=== PATIENT | male | born 1950 | race Caucasian/White ===

== ENCOUNTER → 2020-01-23 09:11 | Outpatient (BNVA) | payer MEDICARE, SELFPAY | PROVIDERS: PCP Internal Medicine; Visit Provider Internal Medicine | DX: I48.91 Unspecified atrial fibrillation (principal); Z95.2 Presence of prosthetic heart valve; Z51.81 Encounter for therapeutic drug level monitoring; Z79.01 Long term (current) use of anticoagulants | CPT/HCPCS: 85610 ==

== ENCOUNTER → 2020-02-20 08:48 | Outpatient (BNVA) | payer MEDICARE, SELFPAY | PROVIDERS: PCP Internal Medicine; Referring Provider Internal Medicine; Visit Provider Internal Medicine | DX: I48.91 Unspecified atrial fibrillation (principal); Z79.01 Long term (current) use of anticoagulants; Z51.81 Encounter for therapeutic drug level monitoring | CPT/HCPCS: 85610; 99211 ==

== ENCOUNTER → 2020-03-05 08:49 | Outpatient (BNVA) | payer MEDICARE, SELFPAY | PROVIDERS: PCP Internal Medicine; Visit Provider Internal Medicine | DX: I48.91 Unspecified atrial fibrillation (principal); Z95.2 Presence of prosthetic heart valve; Z51.81 Encounter for therapeutic drug level monitoring; Z79.01 Long term (current) use of anticoagulants | CPT/HCPCS: 85610; 99211 ==

== ENCOUNTER → 2020-04-02 09:12 | Outpatient (BNVA) | payer MEDICARE, SELFPAY | PROVIDERS: PCP Internal Medicine; Visit Provider Internal Medicine | DX: I48.91 Unspecified atrial fibrillation (principal); Z95.2 Presence of prosthetic heart valve; Z51.81 Encounter for therapeutic drug level monitoring; Z79.01 Long term (current) use of anticoagulants | CPT/HCPCS: 85610; 99211 ==

== ENCOUNTER 2020-05-07 15:12 | Outpatient (REF) | payer MEDICARE, SELFPAY ==
[2020-05-07 15:58] LABS: Influenza A PCR NEGATIVE (Negative); Influenza B PCR NEGATIVE (Negative); Resp Syncy Virus RNA Qual PCR NEGATIVE (Negative)
[2020-05-07 16:09] LABS: SARS COV2 PCR INHOUSE POSITIVE (Negative)
== END 2020-05-07 15:13 | disposition home or self-care (01) ==
LOC: HO.LNP 15:12
PROVIDERS: Visit Provider Internal Medicine
DX: Z20.822 Contact with and (suspected) exposure to COVID-19 (principal)
CPT/HCPCS: 0241U

== ENCOUNTER → 2020-05-22 08:05 | Outpatient (BNVA) | payer MEDICARE, SELFPAY | PROVIDERS: PCP Internal Medicine; Visit Provider Internal Medicine | DX: I48.91 Unspecified atrial fibrillation (principal); Z95.2 Presence of prosthetic heart valve; Z51.81 Encounter for therapeutic drug level monitoring; Z79.01 Long term (current) use of anticoagulants | CPT/HCPCS: 85610; 99211 ==

== ENCOUNTER 2020-05-23 07:33 | Outpatient (REF) | payer MEDICARE, SELFPAY ==
[2020-05-23 10:03] LABS: MANUAL DIFF FLAG NO
[2020-05-23 10:11] LABS: Basophils Percent Auto 0.3 % (0-2); Eosinophils Absolute Auto 0.1 X10*3/uL (0.0-0.4); Eosinophils Percent Auto 1.7 % (0-4); Hematocrit 38.2 % (42-52); Hemoglobin 12.7 g/dl (14.0-18.0); Imm Gran Abs Auto 0.01 X10*3/uL (0.00-0.03); Imm Gran Pct Auto 0.2 % (0.0-0.4); Lymphocytes Absolute Auto 1.2 X10*3/uL (1.2-4.9); Lymphocytes Percent Auto 17.6 % (20-40); Mean Corpuscular HGB Conc 33.2 g/dl (31.0-36.0); Mean Corpuscular Hemoglobin 32.5 pg (27.0-33.0); Mean Corpuscular Volume 97.7 fL (80-98); Mean Platelet Volume 11.8 fL (9.4-12.4); Monocytes Absolute Auto 0.7 X10*3/uL (0.1-1.2); Monocytes Percent Auto 10.1 % (2-11); Neutrophils Absolute Auto 4.6 X10*3/uL (2.0-8.3); Neutrophils Percent Auto 70.1 % (45-73); Platelet Count 131 X10*3/uL (160-400); Red Blood Count 3.91 X10*6/uL (4.60-5.80); Red Cell Distribution Width 14.8 % (11.0-16.0); White Blood Count 6.5 X10*3/uL (4.8-10.8)
[2020-05-23 10:17] LABS: INTERNATIONAL NORM RATIO 4.5 (0.9-1.1)
[2020-05-23 10:27] LABS: Estimated Average Glucose 174 mg/dL; Hemoglobin A1c % 7.7 %
[2020-05-23 10:42] LABS: Alanine Aminotransferase 48 U/L (0-40); Albumin Level 4.2 g/dL (3.5-5.0); Alkaline Phosphatase 101 U/L (39-117); Anion Gap 15 (12-20); Aspartate Amino Transferase 38 U/L (5-37); Bilirubin Total 0.8 mg/dL (0.0-1.0); Blood Urea Nitrogen 22 mg/dL (9-16); Calcium 8.8 mg/dL (8.4-10.2); Carbon Dioxide 22 mmol/L (22-29); Chloride 107 mmol/L (96-108); Estimated Glomerular Filt Rate > 60; Glucose Fasting 141 mg/dL (60-99); Iron 89 mcg/dL (45-160); Percent Iron Saturation 30 % (15-50); Potassium 4.2 mmol/L (3.3-5.1); Sodium 140 mmol/L (135-145); Total Iron Binding Capacity 292 mcg/dL (228-428); Unsaturated Iron Binding 203 ug/dL
== END 2020-05-23 07:34 | disposition home or self-care (01) ==
LOC: HO.10HDL 07:33
PROVIDERS: Visit Provider Internal Medicine
DX: E11.9 Type 2 diabetes mellitus without complications (principal); D64.9 Anemia, unspecified; I10 Essential (primary) hypertension; Z95.0 Presence of cardiac pacemaker
CPT/HCPCS: 36415; 80053; 83036; 83540; 85025; 85610

== ENCOUNTER → 2020-05-26 08:38 | Outpatient (BNVA) | payer MEDICARE, SELFPAY | PROVIDERS: PCP Internal Medicine; Visit Provider Internal Medicine | DX: I48.91 Unspecified atrial fibrillation (principal); Z95.2 Presence of prosthetic heart valve; Z51.81 Encounter for therapeutic drug level monitoring; Z79.01 Long term (current) use of anticoagulants | CPT/HCPCS: 85610; 99211 ==

== ENCOUNTER → 2020-05-29 08:20 | Outpatient (BNVA) | payer MEDICARE, SELFPAY | PROVIDERS: PCP Internal Medicine; Visit Provider Internal Medicine | DX: I48.91 Unspecified atrial fibrillation (principal); Z51.81 Encounter for therapeutic drug level monitoring; Z79.01 Long term (current) use of anticoagulants | CPT/HCPCS: 85610; 99211 ==

== ENCOUNTER → 2020-06-05 08:31 | Outpatient (BNVA) | payer MEDICARE, SELFPAY | PROVIDERS: PCP Internal Medicine; Visit Provider Internal Medicine | DX: I48.91 Unspecified atrial fibrillation (principal); Z95.2 Presence of prosthetic heart valve; Z51.81 Encounter for therapeutic drug level monitoring; Z79.01 Long term (current) use of anticoagulants | CPT/HCPCS: 85610; 99211 ==

== ENCOUNTER → 2020-06-16 08:16 | Outpatient (BNVA) | payer MEDICARE, SELFPAY | PROVIDERS: PCP Internal Medicine; Visit Provider Internal Medicine | DX: I48.91 Unspecified atrial fibrillation (principal); Z51.81 Encounter for therapeutic drug level monitoring; Z79.01 Long term (current) use of anticoagulants | CPT/HCPCS: 85610; 99211 ==

== ENCOUNTER → 2020-06-27 09:02 | Outpatient (BNVA) | payer MEDICARE, SELFPAY | PROVIDERS: PCP Internal Medicine; Visit Provider Internal Medicine | DX: I48.91 Unspecified atrial fibrillation (principal); Z95.2 Presence of prosthetic heart valve; Z51.81 Encounter for therapeutic drug level monitoring; Z79.01 Long term (current) use of anticoagulants | CPT/HCPCS: 85610; 99211 ==

== ENCOUNTER → 2020-07-11 08:43 | Outpatient (BNVA) | payer MEDICARE, SELFPAY | PROVIDERS: PCP Internal Medicine; Visit Provider Internal Medicine | DX: I48.91 Unspecified atrial fibrillation (principal); Z95.2 Presence of prosthetic heart valve; Z79.01 Long term (current) use of anticoagulants; Z51.81 Encounter for therapeutic drug level monitoring | CPT/HCPCS: 85610; 99211 ==

== ENCOUNTER → 2020-07-25 08:48 | Outpatient (BNVA) | payer MEDICARE, SELFPAY | PROVIDERS: PCP Internal Medicine; Visit Provider Internal Medicine | DX: I48.91 Unspecified atrial fibrillation (principal); Z95.2 Presence of prosthetic heart valve; Z79.01 Long term (current) use of anticoagulants; Z51.81 Encounter for therapeutic drug level monitoring | CPT/HCPCS: 85610; 99211 ==

== ENCOUNTER → 2020-07-31 08:33 | Outpatient (BNVA) | payer MEDICARE, SELFPAY | PROVIDERS: PCP Internal Medicine; Visit Provider Internal Medicine | DX: I48.91 Unspecified atrial fibrillation (principal); Z95.2 Presence of prosthetic heart valve; Z79.01 Long term (current) use of anticoagulants; Z51.81 Encounter for therapeutic drug level monitoring | CPT/HCPCS: 85610; 99211 ==

== ENCOUNTER → 2020-08-15 08:49 | Outpatient (BNVA) | payer MEDICARE, SELFPAY | PROVIDERS: PCP Internal Medicine; Visit Provider Internal Medicine | DX: Z95.2 Presence of prosthetic heart valve (principal); Z51.81 Encounter for therapeutic drug level monitoring; Z79.01 Long term (current) use of anticoagulants | CPT/HCPCS: 85610; 99211 ==

== ENCOUNTER → 2020-08-28 08:30 | Outpatient (BNVA) | payer MEDICARE, SELFPAY | PROVIDERS: PCP Internal Medicine; Visit Provider Internal Medicine | DX: Z95.2 Presence of prosthetic heart valve (principal); Z51.81 Encounter for therapeutic drug level monitoring; Z79.01 Long term (current) use of anticoagulants | CPT/HCPCS: 85610; 99211 ==

== ENCOUNTER 2020-09-18 07:39 | Outpatient (REF) | payer MEDICARE, SELFPAY ==
[2020-09-18 10:03] LABS: Hemoglobin 12.8 g/dl (14.0-18.0); Imm Gran Abs Auto 0.02 X10*3/uL (0.00-0.03); Imm Gran Pct Auto 0.3 % (0.0-0.4); MANUAL DIFF FLAG SCAN; Monocytes Absolute Auto 0.6 X10*3/uL (0.1-1.2); PLT CLUMP 1; Red Cell Distribution Width 13.9 % (11.0-16.0); SCAN SMEAR FLAG 1
[2020-09-18 10:05] LABS: Basophils Percent Auto 0.5 % (0-2); Eosinophils Absolute Auto 0.3 X10*3/uL (0.0-0.4); Eosinophils Percent Auto 3.8 % (0-4); Hematocrit 37.4 % (42-52); Lymphocytes Absolute Auto 1.1 X10*3/uL (1.2-4.9); Lymphocytes Percent Auto 16.7 % (20-40); Mean Corpuscular HGB Conc 34.2 g/dl (31.0-36.0); Mean Corpuscular Hemoglobin 33.5 pg (27.0-33.0); Mean Corpuscular Volume 97.9 fL (80-98); Mean Platelet Volume 10.5 fL (9.4-12.4); Neutrophils Absolute Auto 4.6 X10*3/uL (2.0-8.3); Neutrophils Percent Auto 69.7 % (45-73); Platelet Count 142 X10*3/uL (160-400); Red Blood Count 3.82 X10*6/uL (4.60-5.80); White Blood Count 6.6 X10*3/uL (4.8-10.8)
[2020-09-18 10:14] LABS: Alanine Aminotransferase 19 U/L (0-40); Albumin Level 4.3 g/dL (3.5-5.0); Alkaline Phosphatase 109 U/L (39-117); Anion Gap 11 (12-20); Aspartate Amino Transferase 21 U/L (5-37); Bilirubin Total 0.8 mg/dL (0.0-1.0); Blood Urea Nitrogen 19 mg/dL (9-16); Calcium 9.1 mg/dL (8.4-10.2); Carbon Dioxide 26 mmol/L (22-29); Chloride 107 mmol/L (96-108); Estimated Glomerular Filt Rate > 60; Glucose Random 135 mg/dL (60-115); Potassium 4.2 mmol/L (3.3-5.1); Sodium 140 mmol/L (135-145)
== END 2020-09-18 07:40 | disposition home or self-care (01) ==
LOC: HO.LAB 07:39
PROVIDERS: PCP Internal Medicine; Visit Provider Internal Medicine
DX: I10 Essential (primary) hypertension (principal); R60.9 Edema, unspecified; I48.91 Unspecified atrial fibrillation; Z95.2 Presence of prosthetic heart valve; Z79.01 Long term (current) use of anticoagulants; Z51.81 Encounter for therapeutic drug level monitoring
CPT/HCPCS: 36415; 80053; 85025; 85610; 99211

== ENCOUNTER → 2020-10-16 08:36 | Outpatient (BNVA) | payer MEDICARE, SELFPAY | PROVIDERS: PCP Internal Medicine; Visit Provider Internal Medicine | DX: Z95.2 Presence of prosthetic heart valve (principal); Z51.81 Encounter for therapeutic drug level monitoring; Z79.01 Long term (current) use of anticoagulants | CPT/HCPCS: 85610; 99211 ==

== ENCOUNTER → 2020-11-13 08:31 | Outpatient (BNVA) | payer MEDICARE, SELFPAY | PROVIDERS: PCP Internal Medicine; Visit Provider Internal Medicine | DX: Z95.2 Presence of prosthetic heart valve (principal); Z79.01 Long term (current) use of anticoagulants; Z51.81 Encounter for therapeutic drug level monitoring | CPT/HCPCS: 85610; 99211 ==

== ENCOUNTER → 2020-12-11 08:16 | Outpatient (BNVA) | payer MEDICARE, SELFPAY | PROVIDERS: PCP Internal Medicine; Visit Provider Internal Medicine | DX: Z95.2 Presence of prosthetic heart valve (principal); Z51.81 Encounter for therapeutic drug level monitoring; Z79.01 Long term (current) use of anticoagulants | CPT/HCPCS: 85610; 99211 ==

== ENCOUNTER 2020-12-26 11:24 | Outpatient (REF) | payer MEDICARE, SELFPAY ==
[2020-12-26 13:22] LABS: MANUAL DIFF FLAG NO
[2020-12-26 13:26] LABS: Basophils Percent Auto 0.3 % (0-2); Eosinophils Absolute Auto 0.2 X10*3/uL (0.0-0.4); Eosinophils Percent Auto 2.8 % (0-4); Hematocrit 38.8 % (42-52); Hemoglobin 13.2 g/dl (14.0-18.0); Imm Gran Abs Auto 0.03 X10*3/uL (0.00-0.03); Imm Gran Pct Auto 0.3 % (0.0-0.4); Lymphocytes Absolute Auto 1.3 X10*3/uL (1.2-4.9); Lymphocytes Percent Auto 14.7 % (20-40); Mean Corpuscular Hemoglobin 33.3 pg (27.0-33.0); Mean Platelet Volume 10.7 fL (9.4-12.4); Monocytes Absolute Auto 0.7 X10*3/uL (0.1-1.2); Monocytes Percent Auto 8.5 % (2-11); Neutrophils Absolute Auto 6.3 X10*3/uL (2.0-8.3); Neutrophils Percent Auto 73.4 % (45-73); Platelet Count 155 X10*3/uL (160-400); Red Blood Count 3.96 X10*6/uL (4.60-5.80); Red Cell Distribution Width 14.3 % (11.0-16.0); White Blood Count 8.6 X10*3/uL (4.8-10.8)
[2020-12-26 13:46] LABS: Estimated Average Glucose 169 mg/dL; Hemoglobin A1c % 7.5 %
[2020-12-26 13:54] LABS: Anion Gap 12 (12-20); Blood Urea Nitrogen 10 mg/dL (9-16); Calcium 9.3 mg/dL (8.4-10.2); Carbon Dioxide 26 mmol/L (22-29); Chloride 106 mmol/L (96-108); Estimated Glomerular Filt Rate > 60; Glucose Random 139 mg/dL (60-115); Potassium 4.1 mmol/L (3.3-5.1); Sodium 140 mmol/L (135-145)
[2020-12-26 13:55] LABS: Creatinine Urine 58.11 mg/dL; Microalbum/Creatinine Ratio Ur 106.6 ug/mg cr
== END 2020-12-26 11:25 | disposition home or self-care (01) ==
LOC: HO.10HDL 11:24
PROVIDERS: Visit Provider Internal Medicine
DX: E11.9 Type 2 diabetes mellitus without complications (principal); I10 Essential (primary) hypertension; J45.909 Unspecified asthma, uncomplicated; D64.9 Anemia, unspecified
CPT/HCPCS: 36415; 80048; 82043; 83036; 85025

== ENCOUNTER → 2021-01-08 09:15 | Outpatient (BNVA) | payer MEDICARE, SELFPAY | PROVIDERS: PCP Internal Medicine; Visit Provider Internal Medicine | DX: Z95.2 Presence of prosthetic heart valve (principal); Z51.81 Encounter for therapeutic drug level monitoring; Z79.01 Long term (current) use of anticoagulants | CPT/HCPCS: 85610; 99211 ==

== ENCOUNTER → 2021-02-05 09:01 | Outpatient (BNVA) | payer MEDICARE, SELFPAY | PROVIDERS: PCP Internal Medicine; Visit Provider Internal Medicine | DX: Z95.2 Presence of prosthetic heart valve (principal); Z51.81 Encounter for therapeutic drug level monitoring; Z79.01 Long term (current) use of anticoagulants | CPT/HCPCS: 85610; 99211 ==

== ENCOUNTER → 2021-03-05 09:25 | Outpatient (BNVA) | payer MEDICARE, SELFPAY | PROVIDERS: PCP Internal Medicine; Visit Provider Internal Medicine | DX: Z95.2 Presence of prosthetic heart valve (principal); Z51.81 Encounter for therapeutic drug level monitoring; Z79.01 Long term (current) use of anticoagulants | CPT/HCPCS: 85610; 99211 ==

== ENCOUNTER → 2021-03-19 09:31 | Outpatient (BNVA) | payer MEDICARE, SELFPAY | PROVIDERS: PCP Internal Medicine; Visit Provider Internal Medicine | DX: Z95.2 Presence of prosthetic heart valve (principal); Z51.81 Encounter for therapeutic drug level monitoring; Z79.01 Long term (current) use of anticoagulants | CPT/HCPCS: 85610; 99211 ==

== ENCOUNTER 2021-04-03 10:04 | Outpatient (REF) | payer MEDICARE, SELFPAY ==
[2021-04-03 10:38] LABS: MANUAL DIFF FLAG NO
[2021-04-03 10:41] LABS: Basophils Percent Auto 0.2 % (0-2); Eosinophils Absolute Auto 0.3 X10*3/uL (0.0-0.4); Eosinophils Percent Auto 4.1 % (0-4); Hematocrit 39.3 % (42.0-52.0); Hemoglobin 13.1 g/dl (14.0-18.0); Imm Gran Abs Auto 0.01 X10*3/uL (0.00-0.03); Imm Gran Pct Auto 0.1 % (0.0-0.4); Lymphocytes Absolute Auto 1.2 X10*3/uL (1.2-4.9); Mean Corpuscular HGB Conc 33.3 g/dl (31.0-36.0); Mean Corpuscular Hemoglobin 33.1 pg (27.0-33.0); Mean Corpuscular Volume 99.2 fL (80.0-98.0); Mean Platelet Volume 10.5 fL (9.4-12.4); Monocytes Absolute Auto 0.6 X10*3/uL (0.1-1.2); Monocytes Percent Auto 7.7 % (2-11); Neutrophils Percent Auto 72.9 % (45-73); Platelet Count 146 X10*3/uL (160-400); Red Blood Count 3.96 X10*6/uL (4.60-5.80); Red Cell Distribution Width 14.4 % (11.0-16.0); White Blood Count 8.2 X10*3/uL (4.8-10.8)
[2021-04-03 10:49] LABS: Estimated Average Glucose 166 mg/dL; Hemoglobin A1c % 7.4 %
[2021-04-03 10:50] LABS: INTERNATIONAL NORM RATIO 2.7 (0.9-1.1); Prothrombin Time 30.8 SEC (9.9-13.0)
[2021-04-03 11:08] LABS: Alanine Aminotransferase 22 U/L (0-40); Albumin Level 4.1 g/dL (3.5-5.0); Alkaline Phosphatase 104 U/L (39-117); Anion Gap 13 (12-20); Aspartate Amino Transferase 22 U/L (5-37); Bilirubin Total 1.1 mg/dL (0.0-1.0); Blood Urea Nitrogen 17 mg/dL (9-16); Calcium 8.9 mg/dL (8.4-10.2); Carbon Dioxide 24 mmol/L (22-29); Chloride 107 mmol/L (96-108); Cholesterol 111 mg/dL; Estimated Glomerular Filt Rate > 60; Glucose Fasting 113 mg/dL (60-99); HDL Cholesterol 37 mg/dL; LDL Cholesterol Calculated 63 mg/dl; Potassium 4.5 mmol/L (3.3-5.1); Sodium 139 mmol/L (135-145); Total Protein 6.9 g/dL (6.5-8.0); Triglycerides 57 mg/dL
[2021-04-03 11:30] LABS: Prostate Specific Antigen Scr 0.31 ng/mL (<0.05-4.0)
[2021-04-03 14:42] LABS: Creatinine Urine 65.13 mg/dL; Microalbum/Creatinine Ratio Ur 79.8 ug/mg cr
== END 2021-04-03 10:05 | disposition home or self-care (01) ==
LOC: HO.10HDL 10:04
PROVIDERS: Visit Provider Internal Medicine
DX: Z12.5 Encounter for screening for malignant neoplasm of prostate (principal); N40.1 Benign prostatic hyperplasia with lower urinary tract symptoms; R60.0 Localized edema; E78.00 Pure hypercholesterolemia, unspecified; E11.9 Type 2 diabetes mellitus without complications; I10 Essential (primary) hypertension
CPT/HCPCS: 36415; 80053; 80061; 82043; 83036; 84153; 85025; 85610

== ENCOUNTER → 2021-05-07 09:14 | Outpatient (BNVA) | payer MEDICARE, SELFPAY | PROVIDERS: PCP Internal Medicine; Visit Provider Internal Medicine | DX: Z95.2 Presence of prosthetic heart valve (principal); Z51.81 Encounter for therapeutic drug level monitoring; Z79.01 Long term (current) use of anticoagulants | CPT/HCPCS: 85610; 99211 ==

== ENCOUNTER → 2021-06-04 08:28 | Outpatient (BNVA) | payer MEDICARE, SELFPAY | PROVIDERS: PCP Internal Medicine; Visit Provider Internal Medicine | DX: Z95.2 Presence of prosthetic heart valve (principal); Z51.81 Encounter for therapeutic drug level monitoring; Z79.01 Long term (current) use of anticoagulants | CPT/HCPCS: 85610; 99211 ==

== ENCOUNTER → 2021-07-02 09:02 | Outpatient (BNVA) | payer MEDICARE, SELFPAY | PROVIDERS: PCP Internal Medicine; Visit Provider Internal Medicine | DX: Z95.2 Presence of prosthetic heart valve (principal); Z79.01 Long term (current) use of anticoagulants; Z51.81 Encounter for therapeutic drug level monitoring | CPT/HCPCS: 85610; 99211 ==

== ENCOUNTER 2021-07-14 09:12 | Outpatient (REF) | payer MEDICARE, SELFPAY ==
[2021-07-14 11:35] LABS: MANUAL DIFF FLAG NO
[2021-07-14 11:45] LABS: Basophils Percent Auto 0.3 % (0-2); Eosinophils Absolute Auto 0.5 X10*3/uL (0.0-0.4); Eosinophils Percent Auto 6.9 % (0-4); Hematocrit 39.7 % (42.0-52.0); Hemoglobin 13.3 g/dl (14.0-18.0); INTERNATIONAL NORM RATIO 2.5 (0.9-1.1); Imm Gran Abs Auto 0.02 X10*3/uL (0.00-0.03); Imm Gran Pct Auto 0.3 % (0.0-0.4); Lymphocytes Percent Auto 15.5 % (20-40); Mean Corpuscular HGB Conc 33.5 g/dl (31.0-36.0); Mean Corpuscular Volume 98.5 fL (80.0-98.0); Mean Platelet Volume 10.9 fL (9.4-12.4); Monocytes Absolute Auto 0.6 X10*3/uL (0.1-1.2); Monocytes Percent Auto 8.4 % (2-11); Neutrophils Absolute Auto 4.5 x10*3/uL (2.0-8.3); Neutrophils Percent Auto 68.6 % (45-73); Platelet Count 148 X10*3/uL (160-400); Prothrombin Time 28.7 SEC (9.9-13.0); Red Blood Count 4.03 X10*6/uL (4.60-5.80); Red Cell Distribution Width 13.6 % (11.0-16.0); White Blood Count 6.5 X10*3/uL (4.8-10.8)
[2021-07-14 12:05] LABS: Alanine Aminotransferase 17 U/L (0-40); Albumin Level 4.1 g/dL (3.5-5.0); Alkaline Phosphatase 115 U/L (39-117); Anion Gap 12 (12-20); Aspartate Amino Transferase 18 U/L (5-37); Bilirubin Total 0.7 mg/dL (0.0-1.0); Blood Urea Nitrogen 16 mg/dL (9-16); Calcium 8.9 mg/dL (8.4-10.2); Carbon Dioxide 25 mmol/L (22-29); Chloride 107 mmol/L (96-108); Estimated Glomerular Filt Rate > 60; Glucose Random 136 mg/dL (60-115); Potassium 4.3 mmol/L (3.3-5.1); Sodium 140 mmol/L (135-145); Total Protein 6.9 g/dL (6.5-8.0)
[2021-07-14 12:14] LABS: Estimated Average Glucose 186 mg/dL; Hemoglobin A1c % 8.1 %
== END 2021-07-14 09:13 | disposition home or self-care (01) ==
LOC: HO.WFDLDS 09:12
PROVIDERS: Visit Provider Internal Medicine
DX: E11.9 Type 2 diabetes mellitus without complications (principal); J45.909 Unspecified asthma, uncomplicated; R94.31 Abnormal electrocardiogram [ECG] [EKG]; Z79.01 Long term (current) use of anticoagulants
CPT/HCPCS: 36415; 80053; 83036; 85025; 85610

== ENCOUNTER → 2021-07-30 09:47 | Outpatient (BNVA) | payer MEDICARE, SELFPAY | PROVIDERS: PCP Internal Medicine; Visit Provider Internal Medicine | DX: Z95.2 Presence of prosthetic heart valve (principal); Z79.01 Long term (current) use of anticoagulants; Z51.81 Encounter for therapeutic drug level monitoring | CPT/HCPCS: Q3014 ==

== ENCOUNTER → 2021-08-11 08:53 | Outpatient (BNVA) | payer MEDICARE, SELFPAY | PROVIDERS: PCP Internal Medicine; Visit Provider Internal Medicine | DX: Z95.2 Presence of prosthetic heart valve (principal); Z79.01 Long term (current) use of anticoagulants; Z51.81 Encounter for therapeutic drug level monitoring | CPT/HCPCS: 85610; 99211 ==

== ENCOUNTER 2021-09-08 08:18 | Outpatient (REF) | payer MEDICARE, SELFPAY ==
[2021-09-08 08:42] LABS: MANUAL DIFF FLAG NO
[2021-09-08 09:49] LABS: Basophils Percent Auto 0.3 % (0-2); Eosinophils Absolute Auto 0.3 X10*3/uL (0.0-0.4); Eosinophils Percent Auto 3.7 % (0-4); Hematocrit 39.1 % (42.0-52.0); Hemoglobin 12.9 g/dl (14.0-18.0); Imm Gran Abs Auto 0.03 X10*3/uL (0.00-0.03); Imm Gran Pct Auto 0.4 % (0.0-0.4); Lymphocytes Percent Auto 12.7 % (20-40); Mean Corpuscular Hemoglobin 32.9 pg (27.0-33.0); Mean Corpuscular Volume 99.7 fL (80.0-98.0); Mean Platelet Volume 10.7 fL (9.4-12.4); Monocytes Absolute Auto 0.6 X10*3/uL (0.1-1.2); Monocytes Percent Auto 7.6 % (2-11); Neutrophils Percent Auto 75.3 % (45-73); Platelet Count 169 X10*3/uL (160-400); Red Blood Count 3.92 X10*6/uL (4.60-5.80); Red Cell Distribution Width 13.7 % (11.0-16.0); White Blood Count 7.9 X10*3/uL (4.8-10.8)
[2021-09-08 10:24] LABS: B Type Natriuretic Peptide 77 pg/mL (<100)
[2021-09-08 10:28] LABS: Alanine Aminotransferase 21 U/L (0-40); Albumin Level 3.9 g/dL (3.5-5.0); Alkaline Phosphatase 98 U/L (39-117); Anion Gap 14 (12-20); Aspartate Amino Transferase 19 U/L (5-37); Bilirubin Total 0.8 mg/dL (0.0-1.0); Blood Urea Nitrogen 21 mg/dL (9-16); Calcium 9.3 mg/dL (8.4-10.2); Carbon Dioxide 25 mmol/L (22-29); Chloride 105 mmol/L (96-108); Estimated Glomerular Filt Rate > 60; Glucose Random 185 mg/dL (60-115); Potassium 4.5 mmol/L (3.3-5.1); Sodium 139 mmol/L (135-145); Total Protein 6.7 g/dL (6.5-8.0)
[2021-09-08 10:33] LABS: Estimated Average Glucose 197 mg/dL; Hemoglobin A1c % 8.5 %
[2021-09-08 10:40] LABS: Thyroid Stimulating Hormone 1.11 uIU/mL (0.32-4.0)
== END 2021-09-08 08:19 | disposition home or self-care (01) ==
LOC: HO.LAB 08:18
PROVIDERS: PCP Internal Medicine; Visit Provider Internal Medicine
DX: Z95.2 Presence of prosthetic heart valve (principal); Z51.81 Encounter for therapeutic drug level monitoring; Z79.01 Long term (current) use of anticoagulants; R60.0 Localized edema; E11.9 Type 2 diabetes mellitus without complications; J45.909 Unspecified asthma, uncomplicated
CPT/HCPCS: 36415; 80053; 83036; 83880; 84443; 85025; 85610; 99211

== ENCOUNTER 2021-09-22 13:44 | Outpatient (REF) | payer MEDICARE, SELFPAY ==
--- NOTE | ~2021-09-22 | XR_ITS ---
EXAMINATION: XR CHEST CLINICAL INFORMATION: Substance dependence. COMPARISON: Chest 03/27/2019. TECHNIQUE: 2 views of the chest were obtained. FINDINGS: The lungs are well expanded and clear. The heart size and pulmonary vascularity is normal. No gross bony abnormality seen. Pacer electrodes in right atrium and right ventricle are unremarkable. XR/XR chest 2V IMPRESSION: Unremarkable chest exam. No change from 03/27/2019.
[2021-09-22 15:39] LABS: Baso%MD 0.3 %; Eos%MD 7.4 %; Hematocrit 37.7 % (42.0-52.0); Hemoglobin 12.7 g/dl (14.0-18.0); IG%MD 0.3 %; Lymph%MD 22.7 %; Mean Corpuscular HGB Conc 33.7 g/dl (31.0-36.0); Mean Corpuscular Hemoglobin 33.1 pg (27.0-33.0); Mean Corpuscular Volume 98.2 fL (80.0-98.0); Mean Platelet Volume 10.4 fL (9.4-12.4); Mono%MD 10.6 %; Neut%MD 58.7 %; Platelet Count 150 X10*3/uL (160-400); Red Blood Count 3.84 X10*6/uL (4.60-5.80); Red Cell Distribution Width 13.5 % (11.0-16.0); White Blood Count 6.2 X10*3/uL (4.8-10.8)
[2021-09-22 16:15] LABS: Band Neutrophils Percent 1 % (3-5); Basophils Abs Manual 0.1 X10*3/uL (0.0-0.2); Basophils Percent Manual 1 % (0-2); Eosinophils Absolute Manual 0.5 X10*3/uL (0.0-0.4); Eosinophils Percent Manual 8 % (0-4); Lymphocytes Absolute Manual 0.9 X10*3/uL (1.2-4.9); Lymphocytes Percent Manual 15 % (20-40); Monocytes Absolute Manual 0.7 X10*3/uL (0.1-1.2); Monocytes Percent Manual 11 % (2-11); Neutrophils Percent Manual 64 % (45-73)
[2021-09-22 16:16] LABS: Acanthocytes 1+ (0-2) /OIF; Ovalocytes 1+ (5-14) /OIF; Platelet Estimate DECREASED (NORMAL); Platelet Morphology Comment NORMAL; RBC Morphology NORMAL
[2021-09-22 16:17] LABS: Toxic Vacuolation PRESENT
[2021-09-24 12:51] LABS: Immunoglobulin E 231 kU/L (<OR=114)
== END 2021-09-22 13:45 | disposition home or self-care (01) ==
LOC: HO.XRAY 13:44
PROVIDERS: PCP Internal Medicine; Visit Provider Internal Medicine
DX: J82.83 Eosinophilic asthma (principal); J44.9 Chronic obstructive pulmonary disease, unspecified; F19.20 Other psychoactive substance dependence, uncomplicated
CPT/HCPCS: 36415; 71046; 82785; 85007; 85027; 99202

== ENCOUNTER → 2021-10-13 08:07 | Outpatient (BNVA) | payer MEDICARE, SELFPAY | PROVIDERS: PCP Internal Medicine; Visit Provider Internal Medicine | DX: Z95.2 Presence of prosthetic heart valve (principal); Z79.01 Long term (current) use of anticoagulants; Z51.81 Encounter for therapeutic drug level monitoring | CPT/HCPCS: 85610; 99211 ==

== ENCOUNTER 2021-10-26 09:36 | Outpatient (REF) | payer MEDICARE, SELFPAY ==
--- NOTE | 2021-10-26 12:57 | PFT_ITS ---
Forced vital capacity 64%, FEV1 of 69%, FEV1/FVC ratio is 78. KXL93-12 is 80% and MVV 65%. Post bronchodilator therapy, there was a slight improvement in PSG03-41. Total lung capacity 75%. Residual volume 91%. Diffusion capacity is 66%. CONCLUSION: Mild restrictive pulmonary disorder. No evidence of obstructive airway disorder. However, there is significant improvement in PEL54-18, after bronchodilator therapy indicates that there may be a mild bronchospastic component, which response to bronchodilator therapy. Clinical correlation is recommended. Allyson Maradiaga MD MSB/MODL / [phone]
== END 2021-10-26 09:37 | disposition home or self-care (01) ==
LOC: HO.RESP 09:36
PROVIDERS: PCP Internal Medicine; Visit Provider Internal Medicine
DX: J44.9 Chronic obstructive pulmonary disease, unspecified (principal); J82.83 Eosinophilic asthma; R06.00 Dyspnea, unspecified
CPT/HCPCS: 94060; 94727; 94729

== ENCOUNTER → 2021-10-27 09:19 | Outpatient (BNVA) | payer MEDICARE, SELFPAY | PROVIDERS: PCP Internal Medicine; Visit Provider Internal Medicine | DX: Z95.2 Presence of prosthetic heart valve (principal); Z79.01 Long term (current) use of anticoagulants; Z51.81 Encounter for therapeutic drug level monitoring | CPT/HCPCS: 85610; 99211 ==

== ENCOUNTER → 2021-10-29 14:37 | Outpatient (BNVA) | payer MEDICARE, SELFPAY | PROVIDERS: PCP Internal Medicine; Visit Provider Internal Medicine | DX: J44.9 Chronic obstructive pulmonary disease, unspecified (principal); J82.83 Eosinophilic asthma; F19.20 Other psychoactive substance dependence, uncomplicated | CPT/HCPCS: 99212 ==

== ENCOUNTER → 2021-11-05 08:08 | Outpatient (REF) | payer MEDICARE, SELFPAY ==
--- NOTE | 2021-11-05 08:13 | CA_ITS ---
Transthoracic Echocardiogram Patient (Last, First, Middle): Manuel Vasquez F Gender: Male Date of : 1950 Age: 71 Procedure Date: 11/05/2021 Procedure Type: Transthoracic Echocardiogram Location: OP Height: 180.34 cm Weight: 127.46 kg BSA: 2.44 m2 Heart Rate: bpm BP: 122 / 65 mmHg Industrial Automation Engineer: FAVIAN Referring MD: Jaden Nicole MD Symptoms: I44.30 ATRIOVENTRICULAR BLOCK, J45.909 ASTHMA R60.9 EDEMA Study Quality: Adequate Conclusions: - 1. Normal LV systolic function with grade 3 diastolic dysfunction 2. Biatrial enlargement, right greater than left 3. Moderate RV enlargement with moderate RV systolic dysfunction 4. Normally functioning mechanical aortic valve with mean gradient of 11 mmHg 5. Shdr-di-sugwycrc elevation of right ventricular systolic pressure mildly elevated right atrial pressures 6. Moderately enlarged ascending aorta at 4.6 cm 7. No pericardial effusion Findings Procedure Information Contrast agent, definity, is being given per protocol without apparent complications. Left Ventricle Normal left ventricular size, thickness, and systolic function. The visually estimated ejection fraction is between 55-60%. There is paradoxical septal motion consistent with a right ventricular pacemaker. Spectral Doppler is indicative of a restrictive filling pattern. E/E prime ratio is >15, consistent with elevated filling pressures. Evidence suggests grade III (severe) diastolic dysfunction. Right Ventricle Moderately increased right ventricular cavity size. There is moderately decreased right ventricular systolic function. There is a pacemaker wire seen in the right ventricle. Atria The left atrium is mildly dilated. Interatrial shunt cannot be excluded. The right atrium is moderately dilated. A pacemaker wire is identified in the right atrium. Aortic Valve A mechanical prosthetic aortic valve is present. The prosthetic aortic valve appears to be functioning normally. The mean gradient is 11 mmHg. There is no aortic valve regurgitation. the valve is well seated without abnormal rocking motion Mitral Valve The mitral valve was not well visualized. There is trace mitral valve regurgitation. There is no mitral valve stenosis. Pulmonic Valve The pulmonic valve was not well visualized. Tricuspid Valve Normal tricuspid valve structure. There is mild tricuspid valve regurgitation. Mildly elevated right atrial pressure. Mild to moderate pulmonary hypertension is present. Great Vessels The pulmonary artery was not well visualized. There is moderate dilatation of the ascending aorta measuring 4.60 cm. Venous The inferior vena cava is mildly dilated and collapses less than 50% with inspiration. Pericardium/Pleural There is no evidence of pericardial effusion. Prior Study Comparison no prior study in the last 5 years for comparison Measurements 2D Linear Measurements IVSd: 1.10 0.6-0.9/0.6-1.0 cm LVIDd: 5.47 3.9-5.3/4.2-5.9 cm LVIDd Index: 2.24 2.4-3.2/2.2-3.1 cm/m2 LVIDs: 3.98 2.0-3.6 cm LVPWd: 1.06 0.7-1.1 cm LA Diam: 4.20 2.7-3.8/3.0-4.0 cm LAIDs Index: 1.72 1.5-2.3 cm/m2 LV Mass: 291.75 67-162/88-224 g LV Mass Index: 119.57 43-95/49-115 g/m2 LVOT Diam: 2.00 3.0+(-)1.3 cm 2D Systolic Function EF 4C: 60.80 >55% EF 2C: 58.70 >55% EF BiP: 58.30 >55% Mitral Valve MV Pk E: 1.34 MV PK A: 0.37 MV Decel Time: 160.00 E/A: 3.60 E'Lateral: 6.96 E'Medial: 5.87 E/E' Med: 22.80 E/E' Lat: 19.30 PHT: 47.00 MVA PHT: 4.68 Decel [place]: 8.36 Aortic Valve AoV Pk Manuel: 2.26 AoV Mn Manuel: 1.52 AoV VTI: 0.52 AoV Pk Grad: 20.00 Aov Mn Grad: 11.00 JENI Cont.VTI: 1.47 LVOT LVOT Pk Manuel: 1.07 LVOT Mn Manuel: 0.78 LVOT VTI: 0.24 LVOT Pk Grad: 5.00 LVOT Mn Grad: 3.00 LVOT Diam: 2.00 LVOT Area: 3.14 Diastolic Function MV Pk E: 1.34 MV Pk A: 0.37 E/A: 3.60 E'Medial: 5.87 E/E' Med: 22.80 E' Laterial: 6.96 E/E' Lat: 19.30 Right Ventricle TAPSE (mm): 11.80 TVS' Manuel: 6.74 Tricuspid Valve TR Pk Manuel: 3.12 TR Pk Grad: 39.00 RA Press: 8.00 RVSP: 47.00 Great Vessels Aorta Ao Asc: 4.60 2.1-3.4 cm Updated in Other Vendor System with Status of Final Charles Payton MD electronically signed on 11/05/2021 12:15:13 PM with status of Final
== END ==
LOC: HO.CARD 08:08
PROVIDERS: PCP Internal Medicine; Visit Provider Internal Medicine
DX: I44.30 Unspecified atrioventricular block (principal); R60.9 Edema, unspecified; J45.909 Unspecified asthma, uncomplicated
CPT/HCPCS: 93306; Q9957

== ENCOUNTER → 2021-11-17 08:50 | Outpatient (BNVA) | payer MEDICARE, SELFPAY | PROVIDERS: PCP Internal Medicine; Visit Provider Internal Medicine | DX: Z95.2 Presence of prosthetic heart valve (principal); Z79.01 Long term (current) use of anticoagulants; Z51.81 Encounter for therapeutic drug level monitoring | CPT/HCPCS: 85610; 99211 ==

== ENCOUNTER → 2021-11-30 09:06 | Outpatient (BNVA) | payer MEDICARE, SELFPAY | PROVIDERS: PCP Internal Medicine; Visit Provider Internal Medicine | DX: Z95.2 Presence of prosthetic heart valve (principal); Z79.01 Long term (current) use of anticoagulants; Z51.81 Encounter for therapeutic drug level monitoring | CPT/HCPCS: 85610; 99211 ==

== ENCOUNTER → 2021-12-28 08:44 | Outpatient (BNVA) | payer MEDICARE, SELFPAY | PROVIDERS: PCP Internal Medicine; Visit Provider Internal Medicine | DX: Z95.2 Presence of prosthetic heart valve (principal); Z79.01 Long term (current) use of anticoagulants; Z51.81 Encounter for therapeutic drug level monitoring | CPT/HCPCS: 85610; 99211 ==

== ENCOUNTER → 2022-01-27 08:34 | Outpatient (BNVA) | payer MEDICARE, SELFPAY | PROVIDERS: PCP Internal Medicine; Visit Provider Internal Medicine | DX: Z95.2 Presence of prosthetic heart valve (principal); Z51.81 Encounter for therapeutic drug level monitoring; Z79.01 Long term (current) use of anticoagulants | CPT/HCPCS: 85610; 99211 ==

== ENCOUNTER 2022-01-28 07:22 | Outpatient (REF) | payer MEDICARE, SELFPAY ==
[2022-01-28 10:55] LABS: MANUAL DIFF FLAG NO
[2022-01-28 11:14] LABS: Basophils Percent Auto 0.5 % (0-2); Eosinophils Absolute Auto 0.5 X10*3/uL (0.0-0.4); Eosinophils Percent Auto 8.3 % (0-4); Hematocrit 38.7 % (42.0-52.0); Imm Gran Abs Auto 0.02 X10*3/uL (0.00-0.03); Imm Gran Pct Auto 0.3 % (0.0-0.4); Lymphocytes Absolute Auto 1.2 X10*3/uL (1.2-4.9); Lymphocytes Percent Auto 19.5 % (20-40); Mean Corpuscular HGB Conc 33.6 g/dl (31.0-36.0); Mean Corpuscular Hemoglobin 32.8 pg (27.0-33.0); Mean Corpuscular Volume 97.7 fL (80.0-98.0); Mean Platelet Volume 11.1 fL (9.4-12.4); Monocytes Absolute Auto 0.6 X10*3/uL (0.1-1.2); Monocytes Percent Auto 9.6 % (2-11); Neutrophils Absolute Auto 3.9 x10*3/uL (2.0-8.3); Neutrophils Percent Auto 61.8 % (45-73); Platelet Count 158 X10*3/uL (160-400); Red Blood Count 3.96 X10*6/uL (4.60-5.80); Red Cell Distribution Width 14.4 % (11.0-16.0); White Blood Count 6.4 X10*3/uL (4.8-10.8)
[2022-01-28 11:18] LABS: Estimated Average Glucose 146 mg/dL; Hemoglobin A1c % 6.7 %
[2022-01-28 11:56] LABS: Alanine Aminotransferase 15 U/L (0-40); Albumin Level 4.2 g/dL (3.5-5.0); Alkaline Phosphatase 128 U/L (39-117); Anion Gap 15 (12-20); Aspartate Amino Transferase 21 U/L (5-37); Bilirubin Total 0.8 mg/dL (0.0-1.0); Blood Urea Nitrogen 19 mg/dL (9-16); Calcium 8.9 mg/dL (8.4-10.2); Carbon Dioxide 25 mmol/L (22-29); Chloride 105 mmol/L (96-108); Cholesterol 110 mg/dL; Estimated Glomerular Filt Rate > 60; Glucose Fasting 95 mg/dL (60-99); HDL Cholesterol 34 mg/dL; LDL Cholesterol Calculated 65 mg/dl; Potassium 4.2 mmol/L (3.3-5.1); Sodium 141 mmol/L (135-145); Triglycerides 57 mg/dL
[2022-01-28 17:48] LABS: Creatinine Urine 82.82 mg/dL; Microalbum/Creatinine Ratio Ur 31.3 ug/mg cr
== END 2022-01-28 07:23 | disposition home or self-care (01) ==
LOC: HO.WFDLDS 07:22
PROVIDERS: Visit Provider Internal Medicine
DX: I10 Essential (primary) hypertension (principal); E11.9 Type 2 diabetes mellitus without complications; D64.9 Anemia, unspecified; J45.909 Unspecified asthma, uncomplicated; Z95.2 Presence of prosthetic heart valve
CPT/HCPCS: 36415; 80053; 80061; 82043; 83036; 85025

== ENCOUNTER → 2022-02-23 13:39 | Outpatient (BNVA) | payer MEDICARE, SELFPAY | PROVIDERS: PCP Internal Medicine; Visit Provider Internal Medicine | DX: J82.83 Eosinophilic asthma (principal); J44.9 Chronic obstructive pulmonary disease, unspecified; F19.20 Other psychoactive substance dependence, uncomplicated | CPT/HCPCS: 99212 ==

== ENCOUNTER → 2022-02-24 09:22 | Outpatient (BNVA) | payer MEDICARE, SELFPAY | PROVIDERS: PCP Internal Medicine; Visit Provider Internal Medicine | DX: Z95.2 Presence of prosthetic heart valve (principal); Z79.01 Long term (current) use of anticoagulants; Z51.81 Encounter for therapeutic drug level monitoring | CPT/HCPCS: 85610; 99211 ==

== ENCOUNTER → 2022-03-24 08:57 | Outpatient (BNVA) | payer MEDICARE, SELFPAY | PROVIDERS: PCP Internal Medicine; Visit Provider Internal Medicine | DX: Z95.2 Presence of prosthetic heart valve (principal); Z79.01 Long term (current) use of anticoagulants; Z51.81 Encounter for therapeutic drug level monitoring | CPT/HCPCS: 85610; 99211 ==

== ENCOUNTER → 2022-04-21 09:05 | Outpatient (BNVA) | payer MEDICARE, SELFPAY | PROVIDERS: PCP Internal Medicine; Visit Provider Internal Medicine | DX: Z95.2 Presence of prosthetic heart valve (principal); Z79.01 Long term (current) use of anticoagulants; Z51.81 Encounter for therapeutic drug level monitoring | CPT/HCPCS: 85610; 99211 ==

== ENCOUNTER → 2022-05-19 09:09 | Outpatient (BNVA) | payer MEDICARE, SELFPAY | PROVIDERS: PCP Internal Medicine; Visit Provider Internal Medicine | DX: Z95.2 Presence of prosthetic heart valve (principal); Z79.01 Long term (current) use of anticoagulants; Z51.81 Encounter for therapeutic drug level monitoring | CPT/HCPCS: 85610; 99211 ==

== ENCOUNTER → 2022-05-25 13:42 | Outpatient (BNVA) | payer MEDICARE, SELFPAY | PROVIDERS: PCP Internal Medicine; Visit Provider Internal Medicine | DX: J44.9 Chronic obstructive pulmonary disease, unspecified (principal); J82.83 Eosinophilic asthma; E66.01 Morbid (severe) obesity due to excess calories; Z68.39 Body mass index [BMI] 39.0-39.9, adult; Z79.52 Long term (current) use of systemic steroids; Z87.891 Personal history of nicotine dependence | CPT/HCPCS: 99212 ==

== ENCOUNTER → 2022-06-09 09:04 | Outpatient (BNVA) | payer MEDICARE, SELFPAY | PROVIDERS: PCP Internal Medicine; Visit Provider Internal Medicine | DX: Z95.2 Presence of prosthetic heart valve (principal); Z79.01 Long term (current) use of anticoagulants; Z51.81 Encounter for therapeutic drug level monitoring | CPT/HCPCS: 85610; 99211 ==

== ENCOUNTER → 2022-07-07 08:47 | Outpatient (BNVA) | payer MEDICARE, SELFPAY | PROVIDERS: PCP Internal Medicine; Visit Provider Internal Medicine | DX: Z95.2 Presence of prosthetic heart valve (principal); Z79.01 Long term (current) use of anticoagulants; Z51.81 Encounter for therapeutic drug level monitoring | CPT/HCPCS: 85610; 99211 ==

== ENCOUNTER → 2022-07-21 09:00 | Outpatient (BNVA) | payer MEDICARE, SELFPAY | PROVIDERS: PCP Internal Medicine; Visit Provider Internal Medicine | DX: Z95.2 Presence of prosthetic heart valve (principal); Z79.01 Long term (current) use of anticoagulants; Z51.81 Encounter for therapeutic drug level monitoring | CPT/HCPCS: 85610; 99211 ==

== ENCOUNTER 2022-08-12 08:20 | Outpatient (REF) | payer MEDICARE, SELFPAY ==
[2022-08-12 11:51] LABS: Basophils Percent Auto 0.6 % (0-2); Eosinophils Absolute Auto 0.1 X10*3/uL (0.0-0.4); Hematocrit 39.8 % (42.0-52.0); Imm Gran Abs Auto 0.03 X10*3/uL (0.00-0.03); Imm Gran Pct Auto 0.6 % (0.0-0.4); Lymphocytes Absolute Auto 0.8 X10*3/uL (1.2-4.9); Lymphocytes Percent Auto 15.7 % (20-40); MANUAL DIFF FLAG SCAN; Mean Corpuscular HGB Conc 32.7 g/dl (31.0-36.0); Mean Corpuscular Hemoglobin 32.3 pg (27.0-33.0); Mean Platelet Volume 10.7 fL (9.4-12.4); Monocytes Absolute Auto 1.2 X10*3/uL (0.1-1.2); Monocytes Percent Auto 22.6 % (2-11); Neutrophils Percent Auto 58.5 % (45-73); Platelet Count 127 X10*3/uL (160-400); Red Blood Count 4.02 X10*6/uL (4.60-5.80); Red Cell Distribution Width 14.6 % (11.0-16.0); SCAN SMEAR FLAG 1; White Blood Count 5.1 X10*3/uL (4.8-10.8)
[2022-08-12 11:55] LABS: Estimated Average Glucose 154 mg/dL
[2022-08-12 12:27] LABS: SLIDE REVIEW VERIFIED
[2022-08-12 12:41] LABS: Alanine Aminotransferase 22 U/L (0-40); Albumin Level 4.1 g/dL (3.5-5.0); Alkaline Phosphatase 128 U/L (39-117); Anion Gap 13 (12-20); Aspartate Amino Transferase 25 U/L (5-37); Bilirubin Total 0.8 mg/dL (0.0-1.0); Blood Urea Nitrogen 18 mg/dL (9-16); Calcium 8.7 mg/dL (8.4-10.2); Carbon Dioxide 25 mmol/L (22-29); Chloride 106 mmol/L (96-108); Cholesterol 109 mg/dL; Estimated Glomerular Filt Rate > 60; HDL Cholesterol 37 mg/dL; LDL Cholesterol Calculated 62 mg/dl; Potassium 4.4 mmol/L (3.3-5.1); Sodium 140 mmol/L (135-145); Total Protein 6.7 g/dL (6.5-8.0); Triglycerides 54 mg/dL
[2022-08-12 13:06] LABS: Glucose Fasting 54 mg/dL (60-99)
== END 2022-08-12 08:21 | disposition home or self-care (01) ==
LOC: HO.10HDL 08:20
PROVIDERS: Visit Provider Internal Medicine
DX: Z00.00 Encounter for general adult medical examination without abnormal findings (principal); E11.9 Type 2 diabetes mellitus without complications; Z12.5 Encounter for screening for malignant neoplasm of prostate
CPT/HCPCS: 36415; 80053; 80061; 83036; 84153; 85025

== ENCOUNTER → 2022-08-18 09:25 | Outpatient (BNVA) | payer MEDICARE, SELFPAY | PROVIDERS: PCP Internal Medicine; Visit Provider Internal Medicine | DX: Z95.2 Presence of prosthetic heart valve (principal); Z79.01 Long term (current) use of anticoagulants; Z51.81 Encounter for therapeutic drug level monitoring | CPT/HCPCS: 85610; 99211 ==

== ENCOUNTER → 2022-08-23 08:46 | Outpatient (BNVA) | payer MEDICARE, SELFPAY | PROVIDERS: PCP Internal Medicine; Visit Provider Internal Medicine | DX: J44.9 Chronic obstructive pulmonary disease, unspecified (principal); J82.83 Eosinophilic asthma | CPT/HCPCS: 99212 ==

== ENCOUNTER → 2022-09-15 08:47 | Outpatient (BNVA) | payer MEDICARE, SELFPAY | PROVIDERS: PCP Internal Medicine; Visit Provider Internal Medicine | DX: Z95.2 Presence of prosthetic heart valve (principal); Z79.01 Long term (current) use of anticoagulants; Z51.81 Encounter for therapeutic drug level monitoring | CPT/HCPCS: 85610; 99211 ==

== ENCOUNTER → 2022-10-20 08:37 | Outpatient (BNVA) | payer MEDICARE, SELFPAY | PROVIDERS: PCP Internal Medicine; Visit Provider Internal Medicine | DX: Z95.2 Presence of prosthetic heart valve (principal); Z79.01 Long term (current) use of anticoagulants; Z51.81 Encounter for therapeutic drug level monitoring | CPT/HCPCS: 85610; 99211 ==

== ENCOUNTER 2022-11-17 08:53 | Outpatient (AMB) | payer MEDICARE, SELFPAY ==
--- NOTE | 2022-11-17 08:57 | MHC.OFFVISCO ---
Intake Intake Visit Reasons: Anticoagulation Allergies metformin Adverse Reaction (Intermediate, Verified 11/17/22 08:53) Stomach Upset Medication List - Last Reconciled 11/17/22 by Sheri Toney, RN albuterol sulfate 90 mcg/actuation 2 puffs inhalation Q4-6H PRN 30 days atorvastatin 20 mg PO DAILY glipizide ER 10 mg PO BID insulin glargine 10 units subcut BEDTIME lisinopril 5 mg PO DAILY metoprolol tartrate 25 mg PO BID montelukast 10 mg PO BEDTIME pen needle, diabetic (BD Ultra-Fine Short Pen Needle) As directed silver sulfadiazine 1% appl topical DAILY Symbicort 160-4.5 mcg/actuation (budesonide-formoterol) 2 puffs PO BID NS warfarin 5 mg See Protocol PO DAILY Nursing Note INR 4.5-?? out of therapeutic range Medications and supplements reviewed Patient status: c.o stress, denies poor appetite or etoh Medications or supplements: no changes, tylenol prn for cough last week Diet: appetite good Denies any signs and symptoms of bleeding or clotting or unusual bruising Bleeding, bruising, clotting discussed- aware of risk bleeding/bruising Nutritional guidance given: eat greens today and tomm/broccolli, no reds for 2 days Dose: hold dose today then cont 5mg x 5, 7.5mg x 2 F/U INR Date : pt req 2 weeks, agreed to 11/29/22?? Patient verbalizing understanding of instructions given. Anti-Coag Initial Assessment Social Hx Patient Tobacco Use Status: Former Tobacco user Coding Level of Care Code Est Patient Level 1 Diagnoses Current use of anticoagulant therapy Z79.01 Assessment & Plan Assessment & Plan (1) Current use of anticoagulant therapy: Code(s): Z79.01 - correction (current) use of anticoagulants Category: Medical
[2022-11-17 08:58] LABS: Prothrombin Time Whole Bld POC 54.4 sec (11.1-13.5); ~PT, ~INR - Anti Coag Clinic 4.5 (0.9-1.1)
== END 2022-11-17 09:06 | disposition home or self-care (01) ==
LOC: HO.ACS 08:53
PROVIDERS: PCP Internal Medicine; Visit Provider Internal Medicine
DX: Z79.01 Long term (current) use of anticoagulants (principal)

== ENCOUNTER → 2022-11-17 08:53 | Outpatient (BNVA) | payer MEDICARE, SELFPAY | PROVIDERS: PCP Internal Medicine; Visit Provider Internal Medicine | DX: Z95.2 Presence of prosthetic heart valve (principal); Z79.01 Long term (current) use of anticoagulants; Z51.81 Encounter for therapeutic drug level monitoring | CPT/HCPCS: 85610; 99211 ==

== ENCOUNTER 2022-11-29 09:10 | Outpatient (AMB) | payer MEDICARE, SELFPAY ==
--- NOTE | 2022-11-29 09:14 | MHC.OFFVISCO ---
Intake Intake Visit Reasons: Anticoagulation Allergies metformin Adverse Reaction (Intermediate, Verified 11/29/22 09:11) Stomach Upset Medication List - Last Reconciled 11/29/22 by Sheri Toney RN albuterol sulfate 90 mcg/actuation 2 puffs inhalation Q4-6H PRN 30 days atorvastatin 20 mg PO DAILY glipizide ER 10 mg PO BID insulin glargine 10 units subcut BEDTIME lisinopril 5 mg PO DAILY metoprolol tartrate 25 mg PO BID montelukast 10 mg PO BEDTIME pen needle, diabetic (BD Ultra-Fine Short Pen Needle) As directed silver sulfadiazine 1% appl topical DAILY Symbicort 160-4.5 mcg/actuation (budesonide-formoterol) 2 puffs PO BID NS warfarin 5 mg See Protocol PO DAILY Nursing Note INR 3.8-? out of therapeutic range Medications and supplements reviewed Patient status: no c.o, not taking as much tylenol, states had more reds Medications or supplements: no changes Diet: good Denies any signs and symptoms of bleeding or clotting or unusual bruising Bleeding, bruising, clotting discussed - pt scratched left forearm- sl bleeding Nutritional guidance given: eat greens today and tomm, no reds for 2 days food list provided and enc greens 3 times a week Dose: 2.5mg today then 7.5mg x 2, 5mg x 5 F/U INR Date : 2 weeks? Patient verbalizing understanding of instructions given. Anti-Coag Initial Assessment Social Hx Patient Tobacco Use Status: Former Tobacco user Coding Level of Care Code Est Patient Level 1 Diagnoses Current use of anticoagulant therapy Z79.01 Assessment & Plan Assessment & Plan (1) Current use of anticoagulant therapy: Code(s): Z79.01 - termination clerk (current) use of anticoagulants Category: Medical
[2022-11-29 09:15] LABS: Prothrombin Time Whole Bld POC 45.2 sec (11.1-13.5); ~PT, ~INR - Anti Coag Clinic 3.8 (0.9-1.1)
== END 2022-11-29 09:22 | disposition home or self-care (01) ==
LOC: HO.ACS 09:10
PROVIDERS: PCP Internal Medicine; Visit Provider Internal Medicine
DX: Z79.01 Long term (current) use of anticoagulants (principal)

== ENCOUNTER → 2022-11-29 09:10 | Outpatient (BNVA) | payer MEDICARE, SELFPAY | PROVIDERS: PCP Internal Medicine; Visit Provider Internal Medicine | DX: Z95.2 Presence of prosthetic heart valve (principal); Z79.01 Long term (current) use of anticoagulants; Z51.81 Encounter for therapeutic drug level monitoring | CPT/HCPCS: 85610; 99211 ==

== ENCOUNTER 2022-12-13 08:48 | Outpatient (REF) | payer MEDICARE, SELFPAY ==
[2022-12-13 09:34] LABS: MANUAL DIFF FLAG NO
[2022-12-13 10:03] LABS: Basophils Percent Auto 0.2 % (0-2); Eosinophils Absolute Auto 0.2 X10*3/uL (0.0-0.4); Eosinophils Percent Auto 2.2 % (0-4); Hematocrit 38.1 % (42.0-52.0); Hemoglobin 12.9 g/dl (14.0-18.0); Imm Gran Abs Auto 0.03 X10*3/uL (0.00-0.03); Imm Gran Pct Auto 0.4 % (0.0-0.4); Lymphocytes Absolute Auto 0.8 X10*3/uL (1.2-4.9); Lymphocytes Percent Auto 9.2 % (20-40); Mean Corpuscular HGB Conc 33.9 g/dl (31.0-36.0); Mean Corpuscular Hemoglobin 33.2 pg (27.0-33.0); Mean Corpuscular Volume 97.9 fL (80.0-98.0); Mean Platelet Volume 10.7 fL (9.4-12.4); Monocytes Absolute Auto 0.7 X10*3/uL (0.1-1.2); Neutrophils Absolute Auto 6.6 x10*3/uL (2.0-8.3); Platelet Count 141 X10*3/uL (160-400); Red Blood Count 3.89 X10*6/uL (4.60-5.80); Red Cell Distribution Width 14.3 % (11.0-16.0); White Blood Count 8.2 X10*3/uL (4.8-10.8)
[2022-12-13 10:10] LABS: INTERNATIONAL NORM RATIO 3.4 (0.9-1.1)
[2022-12-13 10:14] LABS: Estimated Average Glucose 134 mg/dL; Hemoglobin A1c % 6.3 % (<6.0)
[2022-12-13 10:42] LABS: Alanine Aminotransferase 17 U/L (0-40); Albumin Level 4.1 g/dL (3.5-5.0); Alkaline Phosphatase 119 U/L (39-117); Anion Gap 13 (12-20); Aspartate Amino Transferase 21 U/L (5-37); Bilirubin Total 0.9 mg/dL (0.0-1.0); Blood Urea Nitrogen 16 mg/dL (9-16); Calcium 9.6 mg/dL (8.4-10.2); Carbon Dioxide 25 mmol/L (22-29); Chloride 106 mmol/L (96-108); Estimated Glomerular Filt Rate > 60; Glucose Random 123 mg/dL (60-115); Potassium 4.6 mmol/L (3.3-5.1); Sodium 139 mmol/L (135-145); Total Protein 7.3 g/dL (6.5-8.0)
== END 2022-12-13 08:49 | disposition home or self-care (01) ==
LOC: HO.LAB 08:48
PROVIDERS: Absent Provider Internal Medicine; PCP Internal Medicine; Visit Provider Internal Medicine
DX: E11.9 Type 2 diabetes mellitus without complications (principal); I10 Essential (primary) hypertension; D64.9 Anemia, unspecified; Z95.2 Presence of prosthetic heart valve; Z51.81 Encounter for therapeutic drug level monitoring; Z79.01 Long term (current) use of anticoagulants
CPT/HCPCS: 36415; 80053; 83036; 85025; 85610; 99211

== ENCOUNTER 2022-12-13 08:48 | Outpatient (AMB) | payer MEDICARE, SELFPAY ==
--- NOTE | 2022-12-13 09:06 | MHC.OFFVISCO ---
Intake Intake Visit Reasons: Anticoagulation Allergies metformin Adverse Reaction (Intermediate, Verified 12/13/22 08:59) Stomach Upset Medication List - Last Reconciled 12/13/22 by Lizzie Rouse RN albuterol sulfate 90 mcg/actuation 2 puffs inhalation Q4-6H PRN 30 days atorvastatin 20 mg PO DAILY glipizide ER 10 mg PO BID insulin glargine 10 units subcut BEDTIME lisinopril 5 mg PO DAILY metoprolol tartrate 25 mg PO BID montelukast 10 mg PO BEDTIME pen needle, diabetic (BD Ultra-Fine Short Pen Needle) As directed silver sulfadiazine 1% appl topical DAILY Symbicort 160-4.5 mcg/actuation (budesonide-formoterol) 2 puffs PO BID NS warfarin 5 mg See Protocol PO DAILY Nursing Note INR: 3.5 in therapeutic range Medications and supplements reviewed INRs may have be elevated due to steroid inhalers, decreased activity, diet having labs done today per his PCP Enc to ask MD about the lisinopril contributing to resp problems and enc to ask about pulmonary rehab No changes in health, diet, medications, or supplements, Denies any signs and symptoms of bleeding or bruising or clotting. Bleeding, bruising, clotting discussed Nutritional guidance given - cont to eat greens 3-4 servings / week Dose: keep same for now - 7.5mg x 2 days/ 5mg x 5 days F/U INR: 3 weeks Patient verbalizes understanding of instructions given Anti-Coag Initial Assessment Social Hx Patient Tobacco Use Status: Former Tobacco user Coding Level of Care Code Est Patient Level 1 Diagnoses Current use of anticoagulant therapy Z79.01 Results AMB INR Fingerstick AMB INR Fingerstick 3.5 Last Edit by Lizzie Rouse RN on 12/13/22 09:07 MANUAL ENTRY ONGOING INTERFACE FAILURE Assessment & Plan Assessment & Plan (1) Current use of anticoagulant therapy: Code(s): Z79.01 - jail (current) use of anticoagulants Category: Medical
[2022-12-13 09:14] LABS: Prothrombin Time Whole Bld POC 42.6 sec (11.1-13.5); ~PT, ~INR - Anti Coag Clinic 3.5 (0.9-1.1)
== END 2022-12-13 09:16 | disposition home or self-care (01) ==
LOC: HO.ACS 08:48
PROVIDERS: PCP Internal Medicine; Visit Provider Internal Medicine
DX: Z79.01 Long term (current) use of anticoagulants (principal)

== ENCOUNTER 2023-01-03 08:37 | Outpatient (AMB) | payer MEDICARE, SELFPAY ==
[2023-01-03 08:44] LABS: Prothrombin Time Whole Bld POC 49.2 sec (11.1-13.5); ~PT, ~INR - Anti Coag Clinic 4.1 (0.9-1.1)
--- NOTE | 2023-01-03 08:45 | MHC.OFFVISCO ---
Intake Intake Visit Reasons: Anticoagulation Allergies metformin Adverse Reaction (Intermediate, Verified 01/03/23 08:39) Stomach Upset Medication List - Last Reconciled 01/03/23 by Lizzie Rouse RN albuterol sulfate 90 mcg/actuation (Ventolin HFA) 2 puffs inhalation Q4-6H PRN atorvastatin 20 mg PO DAILY glipizide ER 10 mg PO BID insulin glargine 10 units subcut BEDTIME lisinopril 5 mg PO DAILY metoprolol tartrate 25 mg PO BID montelukast 10 mg PO BEDTIME pen needle, diabetic (BD Ultra-Fine Short Pen Needle) As directed silver sulfadiazine 1% appl topical DAILY Symbicort 160-4.5 mcg/actuation (budesonide-formoterol) 2 puffs PO BID NS warfarin 5 mg See Protocol PO DAILY Nursing Note INR 4.1? out of therapeutic range Medications and supplements reviewed Patient status: seeing Dr Maradiaga today pulmonary for cough clear to yellow sputum in am, and fatigue, INR trending higher - pt states loosing some weight, could be diet raising the INR , states since he started the new tabs of metoprolol has been sick to stomach in am so stopped am dose Medications or supplements: no changes ? lisinopril ? causing cough Diet: good has been eating cooked greens INR should be lower, has been having tomatoes that can raise the INR Denies any signs and symptoms of bleeding or clotting or unusual bruising Bleeding, bruising, clotting discussed Nutritional guidance given: keeping eat greens weekly review the food list weekly Dose: 2.5mg today eat greens today then decrease weekly dose 7.5mg x 1 day/ 5mg x 6 days F/U INR Date: 2 weeks ?? Patient verbalizing understanding of instructions given. Anti-Coag Initial Assessment Social Hx Patient Tobacco Use Status: Former Tobacco user Coding Level of Care Code Est Patient Level 1 Diagnoses Current use of anticoagulant therapy Z79.01 Assessment & Plan Assessment & Plan (1) Current use of anticoagulant therapy: Code(s): Z79.01 - correction (current) use of anticoagulants Category: Medical
== END 2023-01-03 09:06 | disposition home or self-care (01) ==
LOC: HO.ACS 08:37
PROVIDERS: PCP Internal Medicine; Visit Provider Internal Medicine
DX: Z79.01 Long term (current) use of anticoagulants (principal)

== ENCOUNTER → 2023-01-03 08:37 | Outpatient (BNVA) | payer MEDICARE, SELFPAY | PROVIDERS: PCP Internal Medicine; Visit Provider Internal Medicine | DX: J44.9 Chronic obstructive pulmonary disease, unspecified (principal); J82.83 Eosinophilic asthma; R05.9 Cough, unspecified; Z95.2 Presence of prosthetic heart valve; Z79.01 Long term (current) use of anticoagulants; Z51.81 Encounter for therapeutic drug level monitoring | CPT/HCPCS: 85610; 99211; 99212 ==

== ENCOUNTER 2023-01-03 09:08 | Outpatient (AMB) | payer MEDICARE, SELFPAY ==
[2023-01-03 09:18] VITALS: BP 102/70; PULSE 60; O2SAT 96; BMI 38.1
--- NOTE | 2023-01-03 09:18 | A.OFFVIS_ITS ---
Intake Vital Signs 01/03/23 09:18 Height 5 ft 11 in Weight 273 lb BMI 38.1 BP 102/70 Blood Pressure Location Lt brachial Position Sitting Pulse 60 Pulse Source Pulse Oximeter Pulse Oximetry (%) 96 Oxygen Delivery Method Room Air Intake Visit Reasons: Asthma Intake Note: pt is here for follow up and was told to ask about lisinopril related cough, and should he get the RSV vaccine. Social Service Technician Required: No Allergies metformin Adverse Reaction (Intermediate, Verified 01/03/23 09:31) Stomach Upset Medication List - Last Reconciled 01/03/23 by Allyson Maradiaga MD albuterol sulfate 90 mcg/actuation (Ventolin HFA) 2 puffs inhalation Q4-6H PRN atorvastatin 20 mg PO DAILY glipizide ER 10 mg PO BID insulin glargine 10 units subcut BEDTIME lisinopril 5 mg PO DAILY metoprolol tartrate 25 mg PO BID montelukast 10 mg PO BEDTIME pen needle, diabetic (BD Ultra-Fine Short Pen Needle) As directed silver sulfadiazine 1% appl topical DAILY Symbicort 160-4.5 mcg/actuation (budesonide-formoterol) 2 puffs PO BID NS warfarin 5 mg See Protocol PO DAILY Do you need a note to return to daycare/school/sports/work: No HPI Asthma HPI Details 72 YEARS OLD GENTLEMAN RETURNS FOR [employer] W-UP. SINCE HE STARTED SYMBICORT 2 PUFFS B.I.D. HIS COUGH IS MUCH LESS., HE CAN SLEEP THROUGHOUT THE NIGHT WITHOUT WAKING WITH COUGH. HE HAS NO WHEEZING. HOWEVER HIS IS STILL CONCERNED ABOUT HIS COUGH, THAT IT MAY BE DUE TO LISINOPRIL. ALSO HE IS ON METOPROLOL, 25 MG B.I.D. AND RECENTLY , GOT HIS THE TABLETS MADE BY A DIFFERENT MAKER. HE IS HAVING SOME NAUSEA , AFTER TAKING METOPROLOL TABLET AT LEASE THAT IS WHAT HIS THINKS OF. IT HAS CUT DOWN HIS APPETITE AND HE HAS LOST SOME WEIGHT. [facility] Medical History (Updated 01/03/23 @ 09:52 by Allyson Maradiaga MD) Cough Asthma-COPD overlap syndrome Steroid dependence COPD (chronic obstructive pulmonary disease) Eosinophilic asthma Social History Patient Tobacco Use Status: Former Tobacco user Review of Systems Const All systems reviewed & are unremarkable except as noted in HPI and below Eyes Reports no additional complaints ENT Reports nasal congestion (INTERMITTENT BOUTS OF NASAL CONGESTION AND POSTNASAL DRIP) Card Denies chest pain, Denies irregular heart rhythm, Reports leg edema and Reports other (HISTORY OF AORTIC VALVE REPLACEMENT) Resp Reports as per HPI GI Reports no additional complaints Reports no additional complaints Musc Reports no additional complaints Skin/Breast Reports system reviewed and no additional complaints, except as documented Neuro Reports no additional complaints Psych Reports no additional complaints Physical Exam Vital Signs: Last Vital Signs Pulse 60 01/03/23 09:18 BP 102/70 01/03/23 09:18 Pulse Ox 96 01/03/23 09:18 Oxygen Delivery Method Room Air 01/03/23 09:18 BMI result Body Mass Index 38.1 Const Other: HE IS GROSSLY OBESE WITH BMI OF 39.8 General: comfortable, no acute distress, alert and awake Orientation/consciousness: patient oriented x3 HEENT Head: Yes normal to inspection General nose exam: No nasal polyps present and No nasal discharge present Face and sinus: Yes sinuses nontender Mouth: oropharynx abnormals (NARROW AND CROWDED, MALLAMPATI CLASS 3) Throat: Yes posterior oropharynx normal Eyes General: appearance normal, both eyes and all related structures Neck Neck: Yes normal visual inspection, Yes no lymphadenopathy, Yes trachea midline and Yes no JVD Thyroid: Thyroid normal Chest Chest palpation & inspection: abnormal inspection of the chest (MIDSTERNAL SURGICAL SCAR ,HEALED), normal palpation of entire chest wall and no tenderness Resp Other: PERCUSSION NOTE IS NOT PERCEPTIBLE BECAUSE OF THICK CHEST WALL. BREATH SOUNDS ARE DISTANT . LUNGS ARE CLREAR TODAY , NO WHEEZES ARE HEARD . Cardio Palpation: normal PMI Rate: regular rate Rhythm: regular rhythm Heart sounds: Clicking heart sound present (HAS METALLIC SOUND), no gallops and no murmurs GI Palpation (GI): Soft to palpation, nontender, No hepatosplenomegaly present, no masses and Other GI palpation findings present (MODERATELY OBESE) Auscultation: normal bowel sounds Back/Spine/Pelvis Thoracic/Lumbar Spine: thoracic and lumbar spine normal to inspection and thoraco-lumbar ROM limited Skin General skin exam: no rashes or lesions noted Neuro General: patient oriented x3 and no focal motor deficits Cranial nerves: Yes CN's II-XII intact bilaterally Extrem General: Yes normal to inspection, Yes no clubbing, cyanosis or edema, Yes no calf tenderness and Yes venous stasis dermatitis (ON BOTH LEGS) Psych Appearance: grossly normal and well kempt Speech and movement: Normal speech and movement present Assessment & Plan Assessment & Plan (1) Asthma-COPD overlap syndrome: Comment: HIS HISTORY AND FINDINGS OF PHYSICAL EXAMINATION ARE CONSISTENT WITH THE ASTHMA/COPD OVERLAP SYNDROME. HE RESPONDS TO STEROIDS WELL. BUT WE ARE TRYING TO KEEP HIM OFF THE SYSTEMIC STEROID USE. CURRENT TREATMENT: SYMBICORT 160-4.52 PUFFS B.I.D.. ADD MONTELUKAST 10 MG DAILY. PROAIR 2 PUFFS Q 4-6 HOURS ONLY P.R.N.. ALBUTEROL SOLUTION IN THE NEBULIZER Q 6 HOURS P.R.N. WHEN AT HOME. ( NOW USING IT ONLY RARELY ) Code(s): J44.9 - Chronic obstructive pulmonary disease, unspecified (2) Eosinophilic asthma: Comment: REVIEWED HIS LAB TESTS IN THE PAST AND, CBC ON MULTIPLE TIMES SHOWS HIGH EIOSINOPHIL COUNT . PRESENT CBC , EIOSINOPHIL COUNT 8 % I THINK HE HAS CHRONIC EOSINOPHILIC ASTHMA/COPD . ALSO HAS SLIGHTLY ELEVATED IGE . PRESENTLY IS SYMPTOMS ARE WELL CONTROLLED AND SO WE DO NOT HAVE TO PROCEED TO BIOLOGIC TREATMENT. Code(s): J82.83 - Eosinophilic asthma (3) Cough: Comment: HAS CHRONIC COUGH FOR THE PAST MANY YEARS, MOST LIKELY SECONDARY TO ALLERGIC ASTHMA/COPD. HOWEVER, THERE IS A SMALL POSSIBILITY THAT LISINOPRIL MAY BE AGGRAVATING HIS COUGH. TX: SO I WOULD GO AHEAD CHANGE IT TO ARB AGENT LOSARTAN 25 MG A DAY, TO SEE IF IT MAKES HER ILL DIFFERENCE IN HIS COUGH. Code(s): R05.9 - Cough, unspecified Plan: HE HAS CHRONIC COUGH FOR THE PAST MANY YEARS, MOST LIKELY SECONDARY TO Medications: New losartan 25 mg PO DAILY 30 tabs 5RF HYPERTENSION 30 days Coding Level of Care Code Est Pt Level 3 (39030) Diagnoses Asthma-COPD overlap syndrome J44.9 Eosinophilic asthma J82.83 Cough R05.9
== END 2023-01-03 09:46 | disposition home or self-care (01) ==
PROVIDERS: PCP Internal Medicine; Visit Provider Internal Medicine
DX: J44.9 Chronic obstructive pulmonary disease, unspecified (principal); J82.83 Eosinophilic asthma; R05.9 Cough, unspecified
CPT/HCPCS: 99213

== ENCOUNTER 2023-01-17 09:01 | Outpatient (AMB) | payer MEDICARE, SELFPAY ==
[2023-01-17 09:34] LABS: Prothrombin Time Whole Bld POC 51.7 sec (11.1-13.5); ~PT, ~INR - Anti Coag Clinic 4.3 (0.9-1.1)
--- NOTE | 2023-01-17 09:47 | MHC.OFFVISCO ---
Intake Intake Visit Reasons: Anticoagulation Allergies metformin Adverse Reaction (Intermediate, Verified 01/17/23 09:25) Stomach Upset Medication List - Last Reconciled 01/17/23 by Lizzie Rouse RN albuterol sulfate 90 mcg/actuation (Ventolin HFA) 2 puffs inhalation Q4-6H PRN atorvastatin 20 mg PO DAILY glipizide ER 10 mg PO BID insulin glargine 10 units subcut BEDTIME losartan 25 mg PO DAILY 30 days metoprolol tartrate 25 mg PO BID montelukast 10 mg PO BEDTIME pen needle, diabetic (BD Ultra-Fine Short Pen Needle) As directed silver sulfadiazine 1% appl topical DAILY Symbicort 160-4.5 mcg/actuation (budesonide-formoterol) 2 puffs PO BID NS warfarin 5 mg See Protocol PO DAILY Nursing Note INR 4.3? out of therapeutic range Medications and supplements reviewed Patient status: CONTIPATED X 4-5 DAYS, STATES HE DOES NOT FEEL WELL WITH THE CONSTIPATION, HE WAS ENC TO CALL MD, TRY WARM PRUNE JUICE IN THE MEAN TIME, NO BLEEDING OR BLACK STOOLS, TRIED PEPTO BISMAL X 1 BUT READ IT CAN EFFECT THE INR Medications or supplements: OFF LISINOPRIL AND ON LOSARTAN, TRIED MIRALAX WITHOUT RELIEF , JUST SCANT MOVEMENT, TRIED PEPTO X 1 DAY FOR SICK STOMACH Diet: FAIR R/T CONSTIPATION Denies any signs and symptoms of bleeding or clotting or unusual bruising Bleeding, bruising, clotting discussed Nutritional guidance given: GREENS LIKE SPINACH AND PRUNE JUICE Dose: DECREASE WHILE CONSTIPATED 2.5MG TODAY THEN 5MG DAILY F/U INR Date: 1 WEEK ?? Patient verbalizing understanding of instructions given. Anti-Coag Initial Assessment Social Hx Patient Tobacco Use Status: Former Tobacco user Coding Level of Care Code Est Patient Level 1 Diagnoses Current use of anticoagulant therapy Z79.01 Results AMB INR Fingerstick AMB INR Fingerstick 4.3 Last Edit by Lizzie Rouse RN on 01/17/23 09:45 INR DID NOT POPULATE AT TIME OF VISIT Assessment & Plan Assessment & Plan (1) Current use of anticoagulant therapy: Code(s): Z79.01 - [facility] (current) use of anticoagulants Category: Medical
== END 2023-01-17 09:53 | disposition home or self-care (01) ==
LOC: HO.ACS 09:01
PROVIDERS: PCP Internal Medicine; Visit Provider Internal Medicine
DX: Z79.01 Long term (current) use of anticoagulants (principal)

== ENCOUNTER → 2023-01-17 09:01 | Outpatient (BNVA) | payer MEDICARE, SELFPAY | PROVIDERS: PCP Internal Medicine; Visit Provider Internal Medicine | DX: Z95.2 Presence of prosthetic heart valve (principal); Z51.81 Encounter for therapeutic drug level monitoring; Z79.01 Long term (current) use of anticoagulants | CPT/HCPCS: 85610; 99211 ==

== ENCOUNTER 2023-01-26 08:59 | Outpatient (AMB) | payer MEDICARE, SELFPAY ==
--- NOTE | 2023-01-26 09:15 | MHC.OFFVISCO ---
Intake Intake Visit Reasons: Anticoagulation Allergies metformin Adverse Reaction (Intermediate, Verified 01/26/23 09:00) Stomach Upset Medication List - Last Reconciled 01/26/23 by Nabila Haywood RN albuterol sulfate 90 mcg/actuation (Ventolin HFA) 2 puffs inhalation Q4-6H PRN atorvastatin 20 mg PO DAILY glipizide ER 10 mg PO BID insulin glargine 10 units subcut BEDTIME losartan 25 mg PO DAILY 30 days metoprolol tartrate 25 mg PO BID montelukast 10 mg PO BEDTIME pen needle, diabetic (BD Ultra-Fine Short Pen Needle) As directed silver sulfadiazine 1% appl topical DAILY Symbicort 160-4.5 mcg/actuation (budesonide-formoterol) 2 puffs PO BID NS warfarin 5 mg See Protocol PO DAILY Nursing Note NO CP,SOB,DIET/MED CHANGES,FALLS OR SX OF BLEEDING. CONTINUE 5MGM DAILY AND FOLLOW-UP IN 10 DAYS GOOD UNDERSTANDING OF DOSING INSTR. Anti-Coag Initial Assessment Social Hx Patient Tobacco Use Status: Former Tobacco user Coding Level of Care Code Est Patient Level 1 Diagnoses Current use of anticoagulant therapy Z79.01 Assessment & Plan Assessment & Plan (1) Current use of anticoagulant therapy: Code(s): Z79.01 - intermediate accountant (current) use of anticoagulants Category: Medical
== END 2023-01-26 09:20 | disposition home or self-care (01) ==
LOC: HO.ACS 08:59
PROVIDERS: PCP Internal Medicine; Visit Provider Internal Medicine
DX: Z79.01 Long term (current) use of anticoagulants (principal)

== ENCOUNTER → 2023-01-26 08:59 | Outpatient (BNVA) | payer MEDICARE, SELFPAY | PROVIDERS: PCP Internal Medicine; Visit Provider Internal Medicine | DX: Z95.2 Presence of prosthetic heart valve (principal); Z79.01 Long term (current) use of anticoagulants; Z51.81 Encounter for therapeutic drug level monitoring | CPT/HCPCS: 85610; 99211 ==

== ENCOUNTER 2023-02-07 09:02 | Outpatient (AMB) | payer MEDICARE, SELFPAY ==
[2023-02-07 09:33] LABS: Prothrombin Time Whole Bld POC 36.1 sec (11.1-13.5)
--- NOTE | 2023-02-07 09:39 | MHC.OFFVISCO ---
Intake Intake Visit Reasons: Anticoagulation Allergies metformin Adverse Reaction (Intermediate, Verified 02/07/23 09:28) Stomach Upset Medication List - Last Reconciled 02/07/23 by Lizabeth Alvarez, RN albuterol sulfate 90 mcg/actuation (Ventolin HFA) 2 puffs inhalation Q4-6H PRN atorvastatin 20 mg PO DAILY glipizide ER 10 mg PO BID insulin glargine 10 units subcut BEDTIME losartan 25 mg PO DAILY 30 days metoprolol tartrate 25 mg PO BID montelukast 10 mg PO BEDTIME pen needle, diabetic (BD Ultra-Fine Short Pen Needle) As directed silver sulfadiazine 1% appl topical DAILY Symbicort 160-4.5 mcg/actuation (budesonide-formoterol) 2 puffs PO BID NS warfarin 5 mg See Protocol PO DAILY Nursing Note Amb to [facility] feeling well Medications and supplements reviewed No changes in health, diet, medications, or supplements, sts his previous constipation issues improving Denies any unusual signs and symptoms of bruising, bleeding Denies any new Chest pain, SOB, or clotting INR: 3.0 in therapeutic range Nutritional guidance given: balance greens and reds in diet Dose: continue usual dosing;5mg daily (a decrease in dosing since 01/17) F/U INR: when working on scheduling F/U for 3 weeks pt became flustered and said he would have to check with , stood up reached for the open door of office, moved it then said oh this isn't the way out started feeling the wall behind the door, pt directed out of office to outer office headed towards back door, exited then headed right down romano (vs left to waiting room) pt confused at that point for direction, confused look on face, startled, assisted to waiting room to get return to office with and this RN, F/U appt made for 3 weeks and pts updated regarding vague incident Patients verbalizes understanding of instructions given with accurate read back/ teach back of dosing Anti-Coag Initial Assessment Social Hx Patient Tobacco Use Status: Former Tobacco user Coding Level of Care Code Est Patient Level 1 Diagnoses Current use of anticoagulant therapy Z79.01 Time Spent (min) 15 Assessment & Plan Assessment & Plan (1) Current use of anticoagulant therapy: Code(s): Z79.01 - custodial (current) use of anticoagulants Category: Medical
== END 2023-02-07 09:57 | disposition home or self-care (01) ==
LOC: HO.ACS 09:02
PROVIDERS: PCP Internal Medicine; Visit Provider Internal Medicine
DX: Z79.01 Long term (current) use of anticoagulants (principal)

== ENCOUNTER → 2023-02-07 09:02 | Outpatient (BNVA) | payer MEDICARE, SELFPAY | PROVIDERS: PCP Internal Medicine; Visit Provider Internal Medicine | DX: Z95.2 Presence of prosthetic heart valve (principal); Z79.01 Long term (current) use of anticoagulants; Z51.81 Encounter for therapeutic drug level monitoring | CPT/HCPCS: 85610; 99211 ==

== ENCOUNTER 2023-02-28 09:16 | Outpatient (AMB) | payer MEDICARE, SELFPAY ==
--- NOTE | 2023-02-28 09:23 | MHC.OFFVISCO ---
Intake Intake Visit Reasons: Anticoagulation Allergies metformin Adverse Reaction (Intermediate, Verified 02/28/23 09:19) Stomach Upset Medication List - Last Reconciled 02/28/23 by Sheri Toney RN albuterol sulfate 90 mcg/actuation (Ventolin HFA) 2 puffs inhalation Q4-6H PRN atorvastatin 20 mg PO DAILY glipizide ER 10 mg PO BID insulin glargine 10 units subcut BEDTIME losartan 25 mg PO DAILY 30 days metoprolol tartrate 25 mg PO BID montelukast 10 mg PO BEDTIME pen needle, diabetic (BD Ultra-Fine Short Pen Needle) As directed silver sulfadiazine 1% appl topical DAILY Symbicort 160-4.5 mcg/actuation (budesonide-formoterol) 2 puffs PO BID NS warfarin 5 mg See Protocol PO DAILY Nursing Note INR: 3.1- in therapeutic range of 2.5-3.5 Medications and supplements reviewed- no changes No changes in health, diet, medications, or supplements, Denies any signs and symptoms of bleeding or bruising or clotting. 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
[2023-02-28 09:24] LABS: Prothrombin Time Whole Bld POC 37.6 sec (11.1-13.5); ~PT, ~INR - Anti Coag Clinic 3.1 (0.9-1.1)
== END 2023-02-28 09:28 | disposition home or self-care (01) ==
LOC: HO.ACS 09:16
PROVIDERS: PCP Internal Medicine; Visit Provider Internal Medicine
DX: Z79.01 Long term (current) use of anticoagulants (principal)

== ENCOUNTER → 2023-02-28 09:16 | Outpatient (BNVA) | payer MEDICARE, SELFPAY | PROVIDERS: PCP Internal Medicine; Visit Provider Internal Medicine | DX: Z95.2 Presence of prosthetic heart valve (principal); Z79.01 Long term (current) use of anticoagulants; Z51.81 Encounter for therapeutic drug level monitoring | CPT/HCPCS: 85610; 99211 ==

== ENCOUNTER 2023-03-16 08:33 | Outpatient (REF) | payer MEDICARE, SELFPAY ==
[2023-03-16 10:36] LABS: MANUAL DIFF FLAG NO
[2023-03-16 10:42] LABS: Basophils Percent Auto 0.4 % (0-2); Eosinophils Absolute Auto 0.3 X10*3/uL (0.0-0.4); Eosinophils Percent Auto 4.6 % (0-4); Hematocrit 35.8 % (42.0-52.0); Hemoglobin 11.7 g/dl (14.0-18.0); Imm Gran Abs Auto 0.02 X10*3/uL (0.00-0.03); Imm Gran Pct Auto 0.3 % (0.0-0.4); Lymphocytes Absolute Auto 0.7 X10*3/uL (1.2-4.9); Lymphocytes Percent Auto 9.4 % (20-40); Mean Corpuscular HGB Conc 32.7 g/dl (31.0-36.0); Mean Corpuscular Hemoglobin 32.8 pg (27.0-33.0); Mean Corpuscular Volume 100.3 fL (80.0-98.0); Mean Platelet Volume 10.5 fL (9.4-12.4); Monocytes Absolute Auto 0.6 X10*3/uL (0.1-1.2); Monocytes Percent Auto 8.6 % (2-11); Neutrophils Absolute Auto 5.7 x10*3/uL (2.0-8.3); Neutrophils Percent Auto 76.7 % (45-73); Platelet Count 157 X10*3/uL (160-400); Red Blood Count 3.57 X10*6/uL (4.60-5.80); Red Cell Distribution Width 14.6 % (11.0-16.0); White Blood Count 7.4 X10*3/uL (4.8-10.8)
[2023-03-16 10:48] LABS: INTERNATIONAL NORM RATIO 2.6 (0.9-1.1); Prothrombin Time 32.1 SEC (11.1-13.3)
[2023-03-16 10:53] LABS: Estimated Average Glucose 137 mg/dL; Hemoglobin A1c % 6.4 % (<6.0)
[2023-03-16 11:05] LABS: Alanine Aminotransferase 17 U/L (0-40); Alkaline Phosphatase 129 U/L (39-117); Anion Gap 11 (12-20); Aspartate Amino Transferase 20 U/L (5-37); Bilirubin Total 0.7 mg/dL (0.0-1.0); Blood Urea Nitrogen 16 mg/dL (9-16); Calcium 8.8 mg/dL (8.4-10.2); Carbon Dioxide 27 mmol/L (22-29); Chloride 106 mmol/L (96-108); Cholesterol 111 mg/dL (<200); Estimated Glomerular Filt Rate > 60; Glucose Random 109 mg/dL (60-115); Iron 72 mcg/dL (45-160); Percent Iron Saturation 32 % (15-50); Potassium 4.5 mmol/L (3.3-5.1); Sodium 139 mmol/L (135-145); Total Iron Binding Capacity 224 mcg/dL (228-428); Total Protein 7.2 g/dL (6.5-8.0); Unsaturated Iron Binding 152 ug/dL
== END 2023-03-16 08:34 | disposition home or self-care (01) ==
LOC: HO.10HDL 08:33
PROVIDERS: Visit Provider Internal Medicine
DX: E11.9 Type 2 diabetes mellitus without complications (principal); I10 Essential (primary) hypertension; D64.9 Anemia, unspecified; Z95.2 Presence of prosthetic heart valve
CPT/HCPCS: 36415; 80053; 82465; 83036; 83540; 85025; 85610

== ENCOUNTER 2023-03-28 09:17 | Outpatient (AMB) | payer MEDICARE, SELFPAY ==
[2023-03-28 09:49] LABS: Prothrombin Time Whole Bld POC 26.4 sec (11.1-13.5); ~PT, ~INR - Anti Coag Clinic 2.2 (0.9-1.1)
--- NOTE | 2023-03-28 09:58 | MHC.OFFVISCO ---
Intake Intake Visit Reasons: Anticoagulation Allergies metformin Adverse Reaction (Intermediate, Verified 03/28/23 09:40) Stomach Upset Medication List - Last Reconciled 03/28/23 by Lizzie Rouse RN albuterol sulfate 90 mcg/actuation (Ventolin HFA) 2 puffs inhalation Q4-6H PRN atorvastatin 20 mg PO DAILY glipizide ER 10 mg PO BID insulin glargine 10 units subcut BEDTIME losartan 25 mg PO DAILY 30 days metoprolol tartrate 25 mg PO BID montelukast 10 mg PO BEDTIME pen needle, diabetic (BD Ultra-Fine Short Pen Needle) As directed silver sulfadiazine 1% appl topical DAILY Symbicort 160-4.5 mcg/actuation (budesonide-formoterol) 2 puffs PO BID NS warfarin 5 mg See Protocol PO DAILY Nursing Note INR 2.2? out of therapeutic range Medications and supplements reviewed Patient status: BOWELS ARE MOVING A LITTLE BETTER- ENC TO TALK WITH MD ABOUT CONSTIPATION RELIEF, DIETARY FOODS ALREADY SUGGESTED SUCH PRUNE JUICE AND APPLES, Medications or supplements: OCC COLACE AND STOOL SOFTNERS Diet: GOOD Denies any signs and symptoms of bleeding or clotting or unusual bruising Bleeding, bruising, clotting discussed Nutritional guidance given: AVOID GREENS X 2 DAYS, EAT ORANGE AND REDS TODAY THEN RESUME A MIX OF FRUITS AND VEGETABLES Dose: 7.5MG X 1 DAY/ 5MG X 6 DAYS F/U INR Date : 2 WEEKS?? Patient verbalizing understanding of instructions given. Anti-Coag Initial Assessment Social Hx Patient Tobacco Use Status: Former Tobacco user Coding Level of Care Code Est Patient Level 1 Diagnoses Current use of anticoagulant therapy Z79.01 Assessment & Plan Assessment & Plan (1) Current use of anticoagulant therapy: Code(s): Z79.01 - senior care (current) use of anticoagulants Category: Medical
== END 2023-03-28 10:01 | disposition home or self-care (01) ==
LOC: HO.ACS 09:17
PROVIDERS: PCP Internal Medicine; Visit Provider Internal Medicine
DX: Z79.01 Long term (current) use of anticoagulants (principal)

== ENCOUNTER → 2023-03-28 09:17 | Outpatient (BNVA) | payer MEDICARE, SELFPAY | PROVIDERS: PCP Internal Medicine; Visit Provider Internal Medicine | DX: Z95.2 Presence of prosthetic heart valve (principal); Z79.01 Long term (current) use of anticoagulants; Z51.81 Encounter for therapeutic drug level monitoring | CPT/HCPCS: 85610; 99211 ==

== ENCOUNTER 2023-04-05 09:44 | Outpatient (AMB) | payer MEDICARE, SELFPAY ==
--- NOTE | 2023-04-05 09:53 | MHC.OFFVIS ---
Intake Vital Signs 04/05/23 09:54 Height 5 ft 11 in Weight 274 lb BMI 38.2 BP 120/68 Blood Pressure Location Lt brachial Position Sitting Pulse 61 Pulse Source Pulse Oximeter Pulse Oximetry (%) 96 Oxygen Delivery Method Room Air Intake Visit Reasons: Asthma Intake Note: pt is here and states his cough that he had for years is slightly better. Bottle Caser Required: No Allergies metformin Adverse Reaction (Intermediate, Verified 04/05/23 10:12) Stomach Upset Medication List - Last Reconciled 04/05/23 by Allyson Maradiaga MD albuterol sulfate 90 mcg/actuation (Ventolin HFA) 2 puffs inhalation Q4-6H PRN atorvastatin 20 mg PO DAILY furosemide 20 mg PO DAILY PRN glipizide ER 10 mg PO BID insulin glargine 10 units subcut BEDTIME losartan 25 mg PO DAILY 30 days metoprolol tartrate 25 mg PO BID montelukast 10 mg PO BEDTIME pen needle, diabetic (BD Ultra-Fine Short Pen Needle) As directed silver sulfadiazine 1% appl topical DAILY Symbicort 160-4.5 mcg/actuation (budesonide-formoterol) 2 puffs PO BID NS warfarin 5 mg See Protocol PO DAILY Do you need a note to return to daycare/school/sports/work: No HPI Asthma HPI Details THIS 72 YEARS OLD GENTLEMAN IS HERE FOR FOLLOW-UP FOR HIS EIOSINOPHILIC BRONCHIAL ASTHMA/COUGH VARIANT, HE HAS BEEN DOING VERY WELL ON HIS CURRENT REGIMEN. STILL HAS MILD INTERMITTENT COUGH BUT NO BOUTS OF SUSTAINED COUGH OR WHEEZING. HE HAS HAD NO RECENT RESPIRATORY INFECTION. FORMERLY [facility] Medical History Cough Asthma-COPD overlap syndrome Steroid dependence COPD (chronic obstructive pulmonary disease) Eosinophilic asthma Social History Patient Tobacco Use Status: Former Tobacco user Review of Systems Const All systems reviewed & are unremarkable except as noted in HPI and below Eyes Reports no additional complaints ENT Reports nasal congestion (INTERMITTENT BOUTS OF NASAL CONGESTION AND POSTNASAL DRIP) Card Denies chest pain, Denies irregular heart rhythm, Reports leg edema and Reports other (HISTORY OF AORTIC VALVE REPLACEMENT) Resp Reports as per HPI GI Reports no additional complaints Reports no additional complaints Musc Reports no additional complaints Skin/Breast Reports system reviewed and no additional complaints, except as documented Neuro Reports no additional complaints Psych Reports no additional complaints Physical Exam Vital Signs: Last Vital Signs Pulse 61 04/05/23 09:54 BP 120/68 04/05/23 09:54 Pulse Ox 60 L 04/05/23 09:54 Oxygen Delivery Method Room Air 04/05/23 09:54 BMI result Body Mass Index 38.2 Const Other: HE IS GROSSLY OBESE WITH BMI OF 39.8 General: comfortable, no acute distress, alert and awake Orientation/consciousness: patient oriented x3 HEENT Head: Yes normal to inspection General nose exam: No nasal polyps present and No nasal discharge present Face and sinus: Yes sinuses nontender Mouth: oropharynx abnormals (NARROW AND CROWDED, MALLAMPATI CLASS 3) Throat: Yes posterior oropharynx normal Eyes General: appearance normal, both eyes and all related structures Neck Neck: Yes normal visual inspection, Yes no lymphadenopathy, Yes trachea midline and Yes no JVD Thyroid: Thyroid normal Chest Chest palpation & inspection: abnormal inspection of the chest (MIDSTERNAL SURGICAL SCAR ,HEALED), normal palpation of entire chest wall and no tenderness Resp Other: PERCUSSION NOTE IS NOT PERCEPTIBLE BECAUSE OF THICK CHEST WALL. BREATH SOUNDS ARE DISTANT . LUNGS ARE CLREAR TODAY , NO WHEEZES ARE HEARD . Cardio Palpation: normal PMI Rate: regular rate Rhythm: regular rhythm Heart sounds: Clicking heart sound present (HAS METALLIC SOUND), no gallops and no murmurs GI Palpation (GI): Soft to palpation, nontender, No hepatosplenomegaly present, no masses and Other GI palpation findings present (MODERATELY OBESE) Auscultation: normal bowel sounds Back/Spine/Pelvis Thoracic/Lumbar Spine: thoracic and lumbar spine normal to inspection and thoraco-lumbar ROM limited Skin General skin exam: no rashes or lesions noted Neuro General: patient oriented x3 and no focal motor deficits Cranial nerves: Yes CN's II-XII intact bilaterally Extrem General: Yes normal to inspection, Yes no clubbing, cyanosis or edema, Yes no calf tenderness and Yes venous stasis dermatitis (ON BOTH LEGS) Psych Appearance: grossly normal and well kempt Speech and movement: Normal speech and movement present Assessment & Plan Assessment & Plan (1) Eosinophilic asthma: Comment: HIS LAB TESTS IN THE PAST AND, CBC ON MULTIPLE TIMES SHOWS HIGH EIOSINOPHIL COUNT . HE HAS CHRONIC EOSINOPHILIC ASTHMA/COPD . ALSO HAS SLIGHTLY ELEVATED IGE . PRESENTLY HIS SYMPTOMS ARE WELL CONTROLLED WITH THE CURRENT REGIMEN . Code(s): J82.83 - Eosinophilic asthma Plan: CONTINUE SYMBICORT 160-4.52 PUFFS B.I.D. ALSO CONTINUE MONTELUKAST 10 MG DAILY AND USE ALBUTEROL HFA 2 PUFFS Q 6 HOURS P.R.N.. (2) Asthma-COPD overlap syndrome: Comment: HIS HISTORY AND FINDINGS OF PHYSICAL EXAMINATION ARE CONSISTENT WITH THE ASTHMA/COPD OVERLAP SYNDROME. HE RESPONDS TO STEROIDS WELL. BUT WE ARE TRYING TO KEEP HIM OFF THE SYSTEMIC STEROID USE. CURRENT TREATMENT: SYMBICORT 160-4.52 PUFFS B.I.D.. ADD MONTELUKAST 10 MG DAILY. PROAIR 2 PUFFS Q 4-6 HOURS ONLY P.R.N.. ALBUTEROL SOLUTION IN THE NEBULIZER Q 6 HOURS P.R.N. WHEN AT HOME. ( NOW USING IT ONLY RARELY ) Code(s): J44.9 - Chronic obstructive pulmonary disease, unspecified Plan: ABOVE (3) Cough: Comment: HAS CHRONIC COUGH FOR THE PAST MANY YEARS, MOST LIKELY SECONDARY TO ALLERGIC ASTHMA/COPD. COUGH IS MINIMAL AND WELL CONTROLLED AT THIS TIME. Code(s): R05.9 - Cough, unspecified Plan: CONTINUE PRESENT TREATMENT Coding Level of Care Code Est Pt Level 3 (00704) Diagnoses Eosinophilic asthma J82.83 Asthma-COPD overlap syndrome J44.9 Cough R05.9
[2023-04-05 09:54] VITALS: BP 120/68; PULSE 61; O2SAT 96; BMI 38.2
== END 2023-04-05 10:13 | disposition home or self-care (01) ==
PROVIDERS: PCP Internal Medicine; Visit Provider Internal Medicine
DX: J82.83 Eosinophilic asthma (principal); J44.9 Chronic obstructive pulmonary disease, unspecified; R05.9 Cough, unspecified
CPT/HCPCS: 99213

== ENCOUNTER → 2023-04-05 09:44 | Outpatient (BNVA) | payer MEDICARE, SELFPAY | PROVIDERS: PCP Internal Medicine; Visit Provider Internal Medicine | DX: J82.83 Eosinophilic asthma (principal); J44.9 Chronic obstructive pulmonary disease, unspecified; R05.9 Cough, unspecified | CPT/HCPCS: 99212 ==

== ENCOUNTER 2023-04-14 09:15 | Outpatient (AMB) | payer MEDICARE, SELFPAY ==
[2023-04-14 09:34] LABS: Prothrombin Time Whole Bld POC 24.5 sec (11.1-13.5)
--- NOTE | 2023-04-14 09:45 | MHC.OFFVISCO ---
Intake Intake Visit Reasons: Anticoagulation Allergies metformin Adverse Reaction (Intermediate, Verified 04/14/23 09:29) Stomach Upset Medication List - Last Reconciled 04/14/23 by Nabila Haywood RN albuterol sulfate 90 mcg/actuation (Ventolin HFA) 2 puffs inhalation Q4-6H PRN atorvastatin 20 mg PO DAILY furosemide 20 mg PO DAILY PRN glipizide ER 10 mg PO BID insulin glargine 10 units subcut BEDTIME losartan 25 mg PO DAILY 30 days metoprolol tartrate 25 mg PO BID montelukast 10 mg PO BEDTIME pen needle, diabetic (BD Ultra-Fine Short Pen Needle) As directed silver sulfadiazine 1% appl topical DAILY Symbicort 160-4.5 mcg/actuation (budesonide-formoterol) 2 puffs PO BID NS warfarin 5 mg See Protocol PO DAILY Nursing Note DENIES ANY MISSED DOSES. NO CP,SOB,DIET/MED CHANGES,FALLS OR SX OF BLEEDING. 7.5MGM BOOST TODAY AND TOMORROW THEN INCREASE WEEKLY DOSE AND FOLLOW-UP IN 10 DAYS. NO GREENS 2 DAYS GOOD UNDERSTANDING OF DOSING INSTR. Anti-Coag Initial Assessment Social Hx Patient Tobacco Use Status: Former Tobacco user Coding Level of Care Code Est Patient Level 1 Diagnoses Current use of anticoagulant therapy Z79.01 Assessment & Plan Assessment & Plan (1) Current use of anticoagulant therapy: Code(s): Z79.01 - correction (current) use of anticoagulants Category: Medical
== END 2023-04-14 09:47 | disposition home or self-care (01) ==
LOC: HO.ACS 09:15
PROVIDERS: PCP Internal Medicine; Visit Provider Internal Medicine
DX: Z79.01 Long term (current) use of anticoagulants (principal)

== ENCOUNTER → 2023-04-14 09:15 | Outpatient (BNVA) | payer MEDICARE, SELFPAY | PROVIDERS: PCP Internal Medicine; Visit Provider Internal Medicine | DX: Z95.2 Presence of prosthetic heart valve (principal); Z79.01 Long term (current) use of anticoagulants; Z51.81 Encounter for therapeutic drug level monitoring | CPT/HCPCS: 85610; 99211 ==

== ENCOUNTER 2023-05-05 09:25 | Outpatient (AMB) | payer MEDICARE, SELFPAY ==
[2023-05-05 09:35] LABS: Prothrombin Time Whole Bld POC 58.1 sec (11.1-13.5); ~PT, ~INR - Anti Coag Clinic 4.8 (0.9-1.1)
--- NOTE | 2023-05-05 09:43 | MHC.OFFVISCO ---
Intake Intake Visit Reasons: Anticoagulation Allergies metformin Adverse Reaction (Intermediate, Verified 05/05/23 09:28) Stomach Upset Medication List - Last Reconciled 05/05/23 by Lizzie Rouse RN albuterol sulfate 90 mcg/actuation (Ventolin HFA) 2 puffs inhalation Q4-6H PRN atorvastatin 20 mg PO DAILY furosemide 20 mg PO DAILY PRN insulin glargine 10 units subcut BEDTIME losartan 25 mg PO DAILY 30 days metoprolol tartrate 25 mg PO BID montelukast 10 mg PO BEDTIME pen needle, diabetic (BD Ultra-Fine Short Pen Needle) As directed silver sulfadiazine 1% appl topical DAILY Symbicort 160-4.5 mcg/actuation (budesonide-formoterol) 2 puffs PO BID NS warfarin 5 mg See Protocol PO DAILY Nursing Note INR 4.8 out of therapeutic range Medications and supplements reviewed Patient status: R/S DUE TO WEATHER AND THEN HAD A HYPO GLYCEMIC EPSISODE BS 28 Medications or supplements: GLYPEZIDE DECREASED TO X 1 DAILY PER PCP Diet: GOOD - HAS BEEN HAVING A FEW V8 Denies any signs and symptoms of bleeding or clotting or unusual bruising Bleeding, bruising, clotting discussed Nutritional guidance given: STATES HE WILL HAVE 2 V8 / WK Dose: HOLD TODAY THEN DECREASE WEEKLY DOSE 7.5MG X 1 DAY/ 5MG X 6 DAYS - CHALLENGING TO STABELIZE F/U INR Date : 11 DAYS - PT STATES SHE CANT COME NEXT WEEK F/U 05/16/23 ?? Patient verbalizing understanding of instructions given. Anti-Coag Initial Assessment Social Hx Patient Tobacco Use Status: Former Tobacco user Coding Level of Care Code Est Patient Level 1 Diagnoses Current use of anticoagulant therapy Z79.01 Assessment & Plan Assessment & Plan (1) Current use of anticoagulant therapy: Code(s): Z79.01 - FPC (current) use of anticoagulants Category: Medical Medications: New glipizide ER 10 mg PO DAILY
== END 2023-05-05 09:47 | disposition home or self-care (01) ==
LOC: HO.ACS 09:25
PROVIDERS: PCP Internal Medicine; Visit Provider Internal Medicine
DX: Z79.01 Long term (current) use of anticoagulants (principal)

== ENCOUNTER → 2023-05-05 09:25 | Outpatient (BNVA) | payer MEDICARE, SELFPAY | PROVIDERS: PCP Internal Medicine; Visit Provider Internal Medicine | DX: Z95.2 Presence of prosthetic heart valve (principal); Z79.01 Long term (current) use of anticoagulants; Z51.81 Encounter for therapeutic drug level monitoring | CPT/HCPCS: 85610; 99211 ==

== ENCOUNTER 2023-05-18 09:29 | Outpatient (AMB) | payer MEDICARE, SELFPAY ==
[2023-05-18 09:37] LABS: Prothrombin Time Whole Bld POC 35.9 sec (11.1-13.5)
--- NOTE | 2023-05-18 09:42 | MHC.OFFVISCO ---
Intake Intake Visit Reasons: Anticoagulation Allergies metformin Adverse Reaction (Intermediate, Verified 05/18/23 09:36) Stomach Upset Medication List - Last Reconciled 05/18/23 by Lizzie Rouse RN albuterol sulfate 90 mcg/actuation (Ventolin HFA) 2 puffs inhalation Q4-6H PRN atorvastatin 20 mg PO DAILY furosemide 20 mg PO DAILY PRN glipizide ER 10 mg PO DAILY insulin glargine 10 units subcut BEDTIME losartan 25 mg PO DAILY 30 days metoprolol tartrate 25 mg PO BID montelukast 10 mg PO BEDTIME pen needle, diabetic (BD Ultra-Fine Short Pen Needle) As directed silver sulfadiazine 1% appl topical DAILY Symbicort 160-4.5 mcg/actuation (budesonide-formoterol) 2 puffs PO BID NS warfarin 5 mg See Protocol PO DAILY Nursing Note INR: 3.0 in therapeutic range Medications and supplements reviewed ,METFORMIN D/C AND STARTED ON GLIPIZIDE OVER 1 MONTH AGO No changes in health, diet, medications, or supplements, Denies any signs and symptoms of bleeding or bruising or clotting. 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
== END 2023-05-18 09:45 | disposition home or self-care (01) ==
LOC: HO.ACS 09:29
PROVIDERS: PCP Internal Medicine; Visit Provider Internal Medicine
DX: Z79.01 Long term (current) use of anticoagulants (principal)

== ENCOUNTER → 2023-05-18 09:29 | Outpatient (BNVA) | payer MEDICARE, SELFPAY | PROVIDERS: PCP Internal Medicine; Visit Provider Internal Medicine | DX: Z95.2 Presence of prosthetic heart valve (principal); Z79.01 Long term (current) use of anticoagulants; Z51.81 Encounter for therapeutic drug level monitoring | CPT/HCPCS: 85610; 99211 ==

== ENCOUNTER 2023-05-23 10:27 | Outpatient (REF) | payer MEDICARE, SELFPAY ==
[2023-05-23 11:34] LABS: Anion Gap 12 (12-20); Blood Urea Nitrogen 14 mg/dL (9-16); C Reactive Protein 0.33 mg/dL (< or = 0.50); Calcium 9.1 mg/dL (8.4-10.2); Carbon Dioxide 26 mmol/L (22-29); Chloride 107 mmol/L (96-108); Estimated Glomerular Filt Rate > 60; Glucose Random 110 mg/dL (60-115); Potassium 4.2 mmol/L (3.3-5.1); Sodium 141 mmol/L (135-145)
[2023-05-23 11:52] LABS: Free T4 (Free Thyroxine) 0.93 ng/dL (0.71-1.85); Thyroid Stimulating Hormone 1.74 uIU/mL (0.32-4.0)
[2023-05-23 12:01] LABS: Folate 6.3 ng/mL (> or = 4.0); Vitamin B12 553 pg/mL (200-900)
== END 2023-05-23 10:28 | disposition home or self-care (01) ==
LOC: HO.10HDL 10:27
PROVIDERS: Visit Provider Internal Medicine
DX: R41.89 Other symptoms and signs involving cognitive functions and awareness (principal)
CPT/HCPCS: 36415; 80048; 82550; 82607; 82746; 84439; 84443; 86140

== ENCOUNTER 2023-05-25 13:30 | Outpatient (REF) | payer MEDICARE, SELFPAY ==
--- NOTE | ~2023-05-25 | CT_ITS ---
EXAMINATION: CT head/brain wo IV con CLINICAL INFORMATION: Reason for Exam DISORDERS OF THE BRAIN COMPARISON: None. TECHNIQUE: Contiguous axial imaging was performed from the skull base to vertex without intravenous contrast. Sagittal and coronal reformatted images were obtained. This CT examination was performed using dose optimization techniques as appropriate, variously including the following: * Automated exposure control * Adjustment of mA and/or kV according to patient size (this includes techniques or standardized protocols for targeted exams where dose is matched to indication/reason for exam; i.e. extremities or head) Use of iterative reconstruction technique DLP: 939.7 mGy-cm FINDINGS: No acute osseous or soft tissue abnormality. The mastoids are clear. Mild scattered paranasal sinus mucosal thickening. There is no evidence of acute intracranial hemorrhage or territorial infarction. No abnormal mass effect or midline shift is seen. Mathews to white matter differentiation is well preserved. No extra-axial fluid collections are identified. No hydrocephalus. Proportional prominence of the ventricles and sulcal spaces is consistent with mild volume loss. Patchy periventricular and deep white matter hypoattenuation is consistent with moderate small vessel ischemic changes. CT/CT head/brain wo IV con IMPRESSION: 1. No acute intracranial abnormality including hemorrhage, mass effect, hydrocephalus, or acute territorial edematous infarction. 2. Moderate chronic microangiopathic white matter hypodensity and mild generalized volume loss.
== END 2023-05-25 13:31 | disposition home or self-care (01) ==
LOC: HO.CT 13:30
PROVIDERS: PCP Internal Medicine; Visit Provider Internal Medicine
DX: G93.89 Other specified disorders of brain (principal)
CPT/HCPCS: 70450

== ENCOUNTER 2023-06-08 10:08 | Outpatient (AMB) | payer MEDICARE, SELFPAY ==
[2023-06-08 10:22] LABS: Prothrombin Time Whole Bld POC 54.3 sec (11.1-13.5); ~PT, ~INR - Anti Coag Clinic 4.5 (0.9-1.1)
--- NOTE | 2023-06-08 10:37 | MHC.OFFVISCO ---
Intake Intake Visit Reasons: Anticoagulation Allergies metformin Adverse Reaction (Intermediate, Verified 06/08/23 10:14) Stomach Upset Medication List - Last Reconciled 06/08/23 by Nabila Haywood RN albuterol sulfate 90 mcg/actuation (Ventolin HFA) 2 puffs inhalation Q4-6H PRN atorvastatin 20 mg PO DAILY furosemide 20 mg PO DAILY PRN glipizide ER 10 mg PO DAILY insulin glargine 10 units subcut BEDTIME losartan 25 mg PO DAILY 30 days metoprolol tartrate 25 mg PO BID montelukast 10 mg PO BEDTIME pen needle, diabetic (BD Ultra-Fine Short Pen Needle) As directed silver sulfadiazine 1% appl topical DAILY Symbicort 160-4.5 mcg/actuation (budesonide-formoterol) 2 puffs PO BID NS warfarin 5 mg See Protocol PO DAILY Nursing Note STATES THAT PT.HAS BEEN HAVING CRANBERRY JUICE SEVERAL TIMES WEEKLY. WILL DECREASE TO ONLY 4-5 OUNCES 1X WEEKLY. PT.WILL ALSO INCREASE THE V8. PT.HAS HAD NO CP,SOB,MED NCHANGES,FALLS OR SX OF BLEEDING. HOLD WARFARIN TODAY THEN RESUMNE USUAL DOSE AND FOLLOW-UP IN 2 WEEKS. GOOD UNDERSTNDING OF DOSING INSTR. TO CALL ACS IN MEANTIME IF ANY QUESTIONS/CONCERNS ARISE. 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
== END 2023-06-08 10:40 | disposition home or self-care (01) ==
LOC: HO.ACS 10:08
PROVIDERS: PCP Internal Medicine; Visit Provider Internal Medicine
DX: Z79.01 Long term (current) use of anticoagulants (principal)

== ENCOUNTER → 2023-06-08 10:08 | Outpatient (BNVA) | payer MEDICARE, SELFPAY | PROVIDERS: PCP Internal Medicine; Visit Provider Internal Medicine | DX: Z95.2 Presence of prosthetic heart valve (principal); Z79.01 Long term (current) use of anticoagulants; Z51.81 Encounter for therapeutic drug level monitoring | CPT/HCPCS: 85610; 99211 ==

== ENCOUNTER 2023-06-22 10:37 | Outpatient (AMB) | payer MEDICARE, SELFPAY ==
[2023-06-22 10:58] LABS: Prothrombin Time Whole Bld POC 56.9 sec (11.1-13.5); ~PT, ~INR - Anti Coag Clinic 4.7 (0.9-1.1)
--- NOTE | 2023-06-22 11:01 | MHC.OFFVISCO ---
Intake Intake Visit Reasons: Anticoagulation Allergies metformin Adverse Reaction (Intermediate, Verified 06/22/23 10:50) Stomach Upset Medication List - Last Reconciled 06/22/23 by Sheri Toney RN albuterol sulfate 90 mcg/actuation (Ventolin HFA) 2 puffs inhalation Q4-6H PRN atorvastatin 20 mg PO DAILY fluticasone propion-salmeterol 500-50 mcg/dose (Wixela Inhub) 1 inh inhalation BID 30 days fluticasone propion-salmeterol 500-50 mcg/dose (Wixela Inhub) 1 inh inhalation BID furosemide 20 mg PO DAILY PRN glipizide ER 10 mg PO DAILY insulin glargine 10 units subcut BEDTIME losartan 25 mg PO DAILY 30 days metoprolol tartrate 25 mg PO BID montelukast 10 mg PO BEDTIME pen needle, diabetic (BD Ultra-Fine Short Pen Needle) As directed silver sulfadiazine 1% appl topical DAILY PRN warfarin 5 mg See Protocol PO DAILY Nursing Note INR 4.7-? out of therapeutic range of 2.5-3.5 Medications and supplements reviewed Patient status: pt with memory issues, seeing neurology next week, pt spouse present for visit Medications or supplements: symbicort d/c and now on wixela inhub- no interaction with warfarin per micromedex Diet: less Denies any signs and symptoms of bleeding or clotting or unusual bruising Bleeding, bruising, clotting discussed - aware at risk of bleeding, avoid high risk activity Nutritional guidance given: eat greens for 2-3 days, no reds Dose: hold dose today and reduce weekly dosing to 5mg daily F/U INR Date : 1 week Patient verbalizing understanding of instructions given. Anti-Coag Initial Assessment Social Hx Patient Tobacco Use Status: Former Tobacco user Coding Level of Care Code Est Patient Level 1 Diagnoses Current use of anticoagulant therapy Z79.01 Assessment & Plan Assessment & Plan (1) Current use of anticoagulant therapy: Code(s): Z79.01 - alf (current) use of anticoagulants Category: Medical Medications: Discontinued Symbicort 160-4.5 mcg/actuation (budesonide-formoterol) Discontinued Reason: Patient no longer taking 2 puffs PO BID 10.2 ea 4RF NS J44.9 - Chronic obstructive pulmonary disease, unspecified
== END 2023-06-22 11:09 | disposition home or self-care (01) ==
LOC: HO.ACS 10:37
PROVIDERS: PCP Internal Medicine; Visit Provider Internal Medicine
DX: Z79.01 Long term (current) use of anticoagulants (principal)

== ENCOUNTER → 2023-06-22 10:37 | Outpatient (BNVA) | payer MEDICARE, SELFPAY | PROVIDERS: PCP Internal Medicine; Visit Provider Internal Medicine | DX: Z95.2 Presence of prosthetic heart valve (principal); Z79.01 Long term (current) use of anticoagulants; Z51.81 Encounter for therapeutic drug level monitoring | CPT/HCPCS: 85610; 99211 ==

== ENCOUNTER 2023-06-29 11:16 | Outpatient (AMB) | payer MEDICARE, SELFPAY ==
[2023-06-29 11:28] LABS: Prothrombin Time Whole Bld POC 28.8 sec (11.1-13.5); ~PT, ~INR - Anti Coag Clinic 2.4 (0.9-1.1)
--- NOTE | 2023-06-29 11:33 | MHC.OFFVISCO ---
Intake Intake Visit Reasons: Anticoagulation Allergies metformin Adverse Reaction (Intermediate, Verified 06/29/23 11:18) Stomach Upset Medication List - Last Reconciled 06/29/23 by Lizzie Rouse RN albuterol sulfate 90 mcg/actuation (Ventolin HFA) 2 puffs inhalation Q4-6H PRN atorvastatin 20 mg PO DAILY fluticasone propion-salmeterol 500-50 mcg/dose (Wixela Inhub) 1 inh inhalation BID 30 days fluticasone propion-salmeterol 500-50 mcg/dose (Wixela Inhub) 1 inh inhalation BID furosemide 20 mg PO DAILY PRN glipizide ER 10 mg PO DAILY insulin glargine 10 units subcut BEDTIME losartan 25 mg PO DAILY 30 days metoprolol tartrate 25 mg PO BID montelukast 10 mg PO BEDTIME pen needle, diabetic (BD Ultra-Fine Short Pen Needle) As directed silver sulfadiazine 1% appl topical DAILY PRN warfarin 5 mg See Protocol PO DAILY Nursing Note INR: 2.4 ALMOST in therapeutic range 2.5-3.5 Medications and supplements reviewed Pt has a nuerology appt today with Dr Hidalgo - will call with any medication changes Denies any signs and symptoms of bleeding or bruising or clotting. 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
== END 2023-06-29 11:35 | disposition home or self-care (01) ==
LOC: HO.ACS 11:16
PROVIDERS: PCP Internal Medicine; Visit Provider Internal Medicine
DX: Z79.01 Long term (current) use of anticoagulants (principal)

== ENCOUNTER → 2023-06-29 11:16 | Outpatient (BNVA) | payer MEDICARE, SELFPAY | PROVIDERS: PCP Internal Medicine; Visit Provider Internal Medicine | DX: Z95.2 Presence of prosthetic heart valve (principal); Z79.01 Long term (current) use of anticoagulants; Z51.81 Encounter for therapeutic drug level monitoring | CPT/HCPCS: 85610; 99211 ==

== ENCOUNTER → 2023-06-30 09:02 | Outpatient (BNVA) | payer MEDICARE, SELFPAY | PROVIDERS: PCP Internal Medicine; Visit Provider Internal Medicine ==

== ENCOUNTER 2023-07-11 09:27 | Outpatient (AMB) | payer MEDICARE, SELFPAY ==
[2023-07-11 09:34] LABS: Prothrombin Time Whole Bld POC 31.9 sec (11.1-13.5); ~PT, ~INR - Anti Coag Clinic 2.7 (0.9-1.1)
--- NOTE | 2023-07-11 09:44 | MHC.OFFVISCO ---
Intake Intake Visit Reasons: Anticoagulation Allergies metformin Adverse Reaction (Intermediate, Verified 07/11/23 09:29) Stomach Upset Medication List - Last Reconciled 07/11/23 by Lizabeth Garcia RN albuterol sulfate 90 mcg/actuation (Ventolin HFA) 2 puffs inhalation Q4-6H PRN atorvastatin 20 mg PO DAILY fluticasone propion-salmeterol 500-50 mcg/dose (Wixela Inhub) 1 inh inhalation BID 30 days fluticasone propion-salmeterol 500-50 mcg/dose (Wixela Inhub) 1 inh inhalation BID furosemide 20 mg PO DAILY PRN glipizide ER 10 mg PO DAILY insulin glargine 10 units subcut BEDTIME losartan 25 mg PO DAILY 30 days metoprolol tartrate 25 mg PO BID montelukast 10 mg PO BEDTIME pen needle, diabetic (BD Ultra-Fine Short Pen Needle) As directed sertraline (Zoloft) 25 mg PO DAILY silver sulfadiazine 1% appl topical DAILY PRN warfarin 5 mg See Protocol PO DAILY Nursing Note Pt to [facility] accompanied by . INR: 2.7 in therapeutic range of 2.5-3.5 Medications and supplements reviewed: started on sertraline 06/30/23 for dimentia and this med can increase INR with delayed onset. No changes in health, diet, medications, or supplements, Denies any signs and symptoms of bleeding or bruising or clotting. Bleeding, bruising, clotting discussed Nutritional guidance given: avoid greens next few days then balance reds and greens Dose: 5mg daily F/U INR: 2 weeks Patient verbalizes understanding of instructions given Anti-Coag Initial Assessment Social Hx Patient Tobacco Use Status: Former Tobacco user Coding Level of Care Code Est Patient Level 1 Diagnoses Current use of anticoagulant therapy Z79.01 Assessment & Plan Assessment & Plan (1) Current use of anticoagulant therapy: Code(s): Z79.01 - detention (current) use of anticoagulants Category: Medical
== END 2023-07-11 09:48 | disposition home or self-care (01) ==
LOC: HO.ACS 09:27
PROVIDERS: PCP Internal Medicine; Visit Provider Internal Medicine
DX: Z79.01 Long term (current) use of anticoagulants (principal)

== ENCOUNTER → 2023-07-11 09:27 | Outpatient (BNVA) | payer MEDICARE, SELFPAY | PROVIDERS: PCP Internal Medicine; Visit Provider Internal Medicine | DX: Z95.2 Presence of prosthetic heart valve (principal); Z79.01 Long term (current) use of anticoagulants; Z51.81 Encounter for therapeutic drug level monitoring | CPT/HCPCS: 85610; 99211 ==

== ENCOUNTER 2023-07-25 09:54 | Outpatient (AMB) | payer MEDICARE, SELFPAY ==
[2023-07-25 10:13] LABS: Prothrombin Time Whole Bld POC 26.8 sec (11.1-13.5); ~PT, ~INR - Anti Coag Clinic 2.2 (0.9-1.1)
--- NOTE | 2023-07-25 10:21 | MHC.OFFVISCO ---
Intake Intake Visit Reasons: Anticoagulation Allergies metformin Adverse Reaction (Intermediate, Verified 07/25/23 10:05) Stomach Upset Medication List - Last Reconciled 07/25/23 by Lizzie Rouse RN albuterol sulfate 90 mcg/actuation (Ventolin HFA) 2 puffs inhalation Q4-6H PRN atorvastatin 20 mg PO DAILY fluticasone propion-salmeterol 500-50 mcg/dose (Wixela Inhub) 1 inh inhalation BID furosemide 20 mg PO DAILY PRN glipizide ER 10 mg PO DAILY insulin glargine 10 units subcut BEDTIME losartan 25 mg PO DAILY 30 days metoprolol tartrate 25 mg PO BID montelukast 10 mg PO BEDTIME pen needle, diabetic (BD Ultra-Fine Short Pen Needle) As directed sertraline (Zoloft) 25 mg PO DAILY silver sulfadiazine 1% appl topical DAILY PRN warfarin 5 mg See Protocol PO DAILY Nursing Note pt accompanied with who manages his health care, he was A+O x 3 with looking with confirmation from spouse and engaged appropriately to context in office visit conversation. INR 2.2 out of therapeutic range- HAS HAD GREENS RECENTLY Medications and supplements reviewed Patient status: ON SERTRALINE 3 WEEKS - NO INCREASE IN INR YET Medications or supplements: SERTRALINE IS STILL AT 25MG - STATES DELAYED ONSET IN INR Diet: APPETITE IS GOOD - HAS HAD GREEN RECENTLY Denies any signs and symptoms of bleeding or clotting or unusual bruising Bleeding, bruising, clotting discussed Nutritional guidance given: HAVE A LITTLE MORE REDS DURING THE WEEK WHEN HAVING GREEN Dose: 7.5 MG TODAY ONLY THEN RESUME 5MG DAILY F/U INR Date : 2 WEEKS?? Patient AND verbalizing understanding of instructions given. 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
== END 2023-07-25 10:26 | disposition home or self-care (01) ==
LOC: HO.ACS 09:54
PROVIDERS: PCP Internal Medicine; Visit Provider Internal Medicine
DX: Z79.01 Long term (current) use of anticoagulants (principal)

== ENCOUNTER → 2023-07-25 09:54 | Outpatient (BNVA) | payer MEDICARE, SELFPAY | PROVIDERS: PCP Internal Medicine; Visit Provider Internal Medicine | DX: Z95.2 Presence of prosthetic heart valve (principal); Z79.01 Long term (current) use of anticoagulants; Z51.81 Encounter for therapeutic drug level monitoring | CPT/HCPCS: 85610; 99211 ==

== ENCOUNTER 2023-08-08 09:18 | Outpatient (AMB) | payer MEDICARE, SELFPAY ==
[2023-08-08 09:31] LABS: Prothrombin Time Whole Bld POC 23.2 sec (11.1-13.5); ~PT, ~INR - Anti Coag Clinic 1.9 (0.9-1.1)
--- NOTE | 2023-08-08 09:33 | MHC.OFFVISCO ---
Intake Intake Visit Reasons: Anticoagulation Allergies metformin Adverse Reaction (Intermediate, Verified 08/08/23 09:22) Stomach Upset Medication List - Last Reconciled 08/08/23 by Lizabeth Alvarez, RN albuterol sulfate 90 mcg/actuation (Ventolin HFA) 2 puffs inhalation Q4-6H PRN atorvastatin 20 mg PO DAILY fluticasone propion-salmeterol 500-50 mcg/dose (Wixela Inhub) 1 inh inhalation BID furosemide 20 mg PO DAILY PRN glipizide ER 10 mg PO DAILY insulin glargine 10 units subcut BEDTIME losartan 25 mg PO DAILY 30 days metoprolol tartrate 25 mg PO BID montelukast 10 mg PO BEDTIME pen needle, diabetic (BD Ultra-Fine Short Pen Needle) As directed sertraline (Zoloft) 25 mg PO DAILY silver sulfadiazine 1% appl topical DAILY PRN warfarin 5 mg See Protocol PO DAILY Nursing Note Amb to [facility] accomp by spouse (pt with memory issues) Medications and supplements reviewed, started on sertraline last month- can raise INR- delayed No other changes in health, diet, medications, or supplements, Denies any signs and symptoms of bleeding, bruising, or clotting. recent cut to left palm, bandage appears CDI, sts it didn't bleed too much Bleeding, bruising, clotting discussed INR 1.9 below therapeutic range 2.5-3.5 last few visits has been below range increase warfarin today to 10mg vs 5mg then resume usual 5mg daily (may need a weekly increase) Will call PCP regarding lovenox (F/U will be few days if lovenox prescribed) Nutritional guidance given no greens today the balance greens and reds in diet F/U INR: 1 week (pt also has a PCP appt that day) Patients spouse verbalizes understanding of instructions given call placed to Dr Nicole office await return call Anti-Coag Initial Assessment Social Hx Patient Tobacco Use Status: Former Tobacco user Coding Level of Care Code Est Patient Level 1 Diagnoses Current use of anticoagulant therapy Z79.01 Time Spent (min) 15 Assessment & Plan Assessment & Plan (1) Current use of anticoagulant therapy: Code(s): Z79.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
== END 2023-08-08 10:13 | disposition home or self-care (01) ==
LOC: HO.ACS 09:18
PROVIDERS: PCP Internal Medicine; Visit Provider Internal Medicine
DX: Z79.01 Long term (current) use of anticoagulants (principal)

== ENCOUNTER → 2023-08-08 09:18 | Outpatient (BNVA) | payer MEDICARE, SELFPAY | PROVIDERS: PCP Internal Medicine; Visit Provider Internal Medicine | DX: Z95.2 Presence of prosthetic heart valve (principal); Z51.81 Encounter for therapeutic drug level monitoring; Z79.01 Long term (current) use of anticoagulants | CPT/HCPCS: 85610; 99211 ==

== ENCOUNTER 2023-08-15 10:48 | Outpatient (AMB) | payer MEDICARE, SELFPAY ==
--- NOTE | 2023-08-15 10:55 | MHC.OFFVISCO ---
Intake Intake Visit Reasons: Anticoagulation Allergies metformin Adverse Reaction (Intermediate, Verified 08/15/23 10:52) Stomach Upset Medication List - Last Reconciled 08/15/23 by Sheri Toney RN albuterol sulfate 90 mcg/actuation (Ventolin HFA) 2 puffs inhalation Q4-6H PRN atorvastatin 20 mg PO DAILY fluticasone propion-salmeterol 500-50 mcg/dose (Wixela Inhub) 1 inh inhalation BID furosemide 20 mg PO DAILY PRN glipizide ER 10 mg PO DAILY insulin glargine 10 units subcut BEDTIME losartan 25 mg PO DAILY 30 days metoprolol tartrate 25 mg PO BID montelukast 10 mg PO BEDTIME pen needle, diabetic (BD Ultra-Fine Short Pen Needle) As directed sertraline (Zoloft) 25 mg PO DAILY silver sulfadiazine 1% appl topical DAILY PRN warfarin 5 mg See Protocol PO DAILY Nursing Note INR: 3.0- in therapeutic range of 2.5-3.5 Medications and supplements reviewed- no changes No changes in health, diet, medications, or supplements, Denies any signs and symptoms of bleeding or bruising or clotting. Bleeding, bruising, clotting discussed Nutritional guidance given Dose: 7.5mg x 1. 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
[2023-08-15 10:57] LABS: Prothrombin Time Whole Bld POC 35.6 sec (11.1-13.5)
== END 2023-08-15 11:03 | disposition home or self-care (01) ==
LOC: HO.ACS 10:48
PROVIDERS: PCP Internal Medicine; Visit Provider Internal Medicine
DX: Z79.01 Long term (current) use of anticoagulants (principal)

== ENCOUNTER → 2023-08-15 10:48 | Outpatient (BNVA) | payer MEDICARE, SELFPAY | PROVIDERS: PCP Internal Medicine; Visit Provider Internal Medicine | DX: Z95.2 Presence of prosthetic heart valve (principal); Z51.81 Encounter for therapeutic drug level monitoring; Z79.01 Long term (current) use of anticoagulants | CPT/HCPCS: 85610; 99211 ==

== ENCOUNTER 2023-08-29 09:50 | Outpatient (AMB) | payer MEDICARE, SELFPAY ==
[2023-08-29 09:57] LABS: Prothrombin Time Whole Bld POC 30.2 sec (11.1-13.5); ~PT, ~INR - Anti Coag Clinic 2.5 (0.9-1.1)
--- NOTE | 2023-08-29 10:06 | MHC.OFFVISCO ---
Intake Intake Visit Reasons: Anticoagulation Allergies metformin Adverse Reaction (Intermediate, Verified 08/29/23 09:51) Stomach Upset Medication List - Last Reconciled 08/29/23 by Lizzie Rouse RN albuterol sulfate 90 mcg/actuation (Ventolin HFA) 2 puffs inhalation Q4-6H PRN atorvastatin 20 mg PO DAILY fluticasone propion-salmeterol 500-50 mcg/dose (Wixela Inhub) 1 inh inhalation BID furosemide 20 mg PO DAILY PRN glipizide ER 10 mg PO DAILY insulin glargine 10 units subcut BEDTIME losartan 25 mg PO DAILY 30 days metoprolol tartrate 25 mg PO BID montelukast 10 mg PO BEDTIME pen needle, diabetic (BD Ultra-Fine Short Pen Needle) As directed sertraline (Zoloft) 25 mg PO DAILY silver sulfadiazine 1% appl topical DAILY PRN warfarin 5 mg See Protocol PO DAILY Nursing Note INR: 2.5 in therapeutic range Medications and supplements reviewed No changes in health, diet, medications, or supplements, Denies any signs and symptoms of bleeding or bruising or clotting. Bleeding, bruising, clotting discussed Nutritional guidance given Dose: KEEP SAME 7.5MG X 1 DAY/ 5MG X 6 DAYS F/U INR: 2 WKS- GO 3 WEEKS IF STABLE Patient AND verbalizes understanding of instructions given Anti-Coag Initial Assessment Social Hx Patient Tobacco Use Status: Former Tobacco user Coding Level of Care Code Est Patient Level 1 Diagnoses Current use of anticoagulant therapy Z79.01 Results AMB INR Fingerstick AMB INR Fingerstick 2.5 Last Edit by Lizzie Rouse RN on 08/29/23 10:02 MANUAL ENTRY Assessment & Plan Assessment & Plan (1) Current use of anticoagulant therapy: Code(s): Z79.01 - 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
== END 2023-08-29 10:07 | disposition home or self-care (01) ==
LOC: HO.ACS 09:50
PROVIDERS: PCP Internal Medicine; Visit Provider Internal Medicine
DX: Z79.01 Long term (current) use of anticoagulants (principal)

== ENCOUNTER → 2023-08-29 09:50 | Outpatient (BNVA) | payer MEDICARE, SELFPAY | PROVIDERS: PCP Internal Medicine; Visit Provider Internal Medicine | DX: Z95.2 Presence of prosthetic heart valve (principal); Z79.01 Long term (current) use of anticoagulants; Z51.81 Encounter for therapeutic drug level monitoring | CPT/HCPCS: 85610; 99211 ==

== ENCOUNTER 2023-09-16 01:06 | Inpatient (IN) | payer MEDICARE, SELFPAY ==
[2023-09-16] VITALS (10 sets, daily range): BP systolic 91–130; BP diastolic 55–70; PULSE 59–70; RESP 18–20; TEMP 36.1–37; O2SAT 92–99; BMI 41.4
--- NOTE | ~2023-09-16 | CT_ITS ---
EXAMINATION: CT ABDOMEN AND PELVIS WITH CONTRAST CLINICAL INFORMATION: Vomiting. Diarrhea. COMPARISON: None available. TECHNIQUE: Multidetector volumetric images were obtained from the superior aspect of the liver through the pubic symphysis following administration 85 mL of Omnipaque 350 intravenous contrast. Sagittal and coronal reformatted images were obtained on the technologist's workstation. Oral contrast: No This CT examination was performed using dose optimization techniques as appropriate, variously including the following: *Automated exposure control *Adjustment of mA and/or kV according to patient size (this includes techniques or standardized protocols for targeted exams where dose is matched to indication/reason for exam; i.e. extremities or head) *Use of iterative reconstruction technique DLP: 916 mGy-cm FINDINGS: LUNG BASES: Prior median sternotomy. LIVER, GALLBLADDER, AND BILIARY TREE: The liver is normal in size and contour. No focal hepatic lesion or biliary ductal dilatation is present. Gallstones. PANCREAS: Unremarkable. SPLEEN: Not enlarged. ADRENAL GLANDS: No adrenal mass KIDNEYS AND URETERS: The kidneys are symmetric in size and enhancement. No hydronephrosis. Nonspecific perinephric stranding. BLADDER: Unremarkable. GASTROINTESTINAL TRACT: There is marked gastric distention. Fluid and gaseous distention of small and large bowel. Small bowel loops measure up to 3.5 cm. Appendix is within normal limits. ABDOMINAL WALL: Bilateral fat-containing inguinal hernias. LYMPH NODES: No bulky lymphadenopathy. VASCULAR: Normal caliber abdominal aorta. PELVIC VISCERA: Unremarkable. OSSEOUS STRUCTURES: No destructive bone lesions. CT/CT abdomen pelvis w IV con IMPRESSION: Fluid and gaseous distention of small and large bowel loops. Gastric distention. No focal point of transition. No focal bowel wall thickening. This may represent enterocolitis. Infectious and inflammatory etiologies should be considered. Cholelithiasis.
[2023-09-16 01:27] LABS: Glucose, Whole Blood 48 mg/dL (60-115)
--- NOTE | 2023-09-16 01:33 | PC.NURSE ---
D10 infusing, pt alert and oriented at this time. POC 35
[2023-09-16 02:17] LABS: Glucose, Whole Blood 81 mg/dL (60-115)
--- NOTE | 2023-09-16 02:49 | PC.NURSE ---
500ml D10 infused, 200ml D10 infused by EMS as well
--- NOTE | 2023-09-16 03:41 | ED.GENADULT ---
HPI - General Adult General Chief complaint: General Medical Stated complaint: Hypoglycemia Time Seen by Provider: 09/16/23 02:07 History of Present Illness HPI narrative: Patient is a 73-year-old male with a history of diabetes. Baseline is on 10 units of insulin at night. Additional 2 to kinked glyburide in the morning. Patient has a history of COPD. His checks his medication for him. The dose is correct. Patient's sugar was repeatedly low. Family noted a sugar of 60 prior to giving him the insulin. On arrival patient's sugar was in the 30s. Related Data Home Medications ?Medication ?Instructions ?Recorded ?Confirmed atorvastatin 20 mg tablet 20 mg PO DAILY 02/20/20 08/29/23 insulin glargine 100 unit/mL (3 10 unit subcut BEDTIME 02/20/20 08/29/23 mL) subcutaneous pen metoprolol tartrate 25 mg tablet 25 mg PO BID 02/20/20 08/29/23 pen needle, diabetic 31 gauge x #1,200 ea 06/04/21 08/29/23/16 (BD Ultra-Fine Short Pen Needle) furosemide 20 mg tablet 20 mg PO DAILY PRN 04/05/23 08/29/23 glipizide 10 mg tablet, extended 10 mg PO DAILY 05/05/23 08/29/23 release 24 hr fluticasone 500 mcg-salmeterol 50 1 inh inhalation BID 06/22/23 08/29/23 mcg/dose blistr powdr for inhalation (Wixela Inhub) silver sulfadiazine 1 % topical appl topical DAILY PRN 06/22/23 08/29/23 cream sertraline 25 mg tablet (Zoloft) 25 mg PO DAILY 06/30/23 08/29/23 lisinopril 5 mg tablet 5 mg PO DAILY 08/29/23 08/29/23 Previous Rx's ?Medication ?Instructions ?Recorded warfarin 5 mg tablet 5 mg PO DAILY #90 tabs 01/23/20 montelukast 10 mg tablet 10 mg PO BEDTIME asthma #90 tabs 08/23/22 losartan 25 mg tablet 25 mg PO DAILY HYPERTENSION 30 01/03/23 days #30 tabs albuterol sulfate 90 mcg/actuation 2 puff inhalation Q4-6H PRN for 04/19/23 aerosol inhaler (Ventolin HFA) wheezing #18 ea Allergies Allergy/AdvReac Type Severity Reaction Status Date / Time metformin AdvReac Intermediate Stomach Verified 09/16/23 01:27 Upset Review of Systems Review of Systems: Positive generalized malaise Yes all other systems are reviewed and are negative [facility] Past Medical History Attestation statement: The following information was validated with the patient. Medical History Cough Asthma-COPD overlap syndrome Steroid dependence COPD (chronic obstructive pulmonary disease) Eosinophilic asthma Social History Social History Patient Tobacco Use Status: Former Tobacco user Smoked in Last 30 Days: No Use of substances other than those prescribed or required for medical reasons: No Advance Directives: No Advance Directives Information Provided: Yes Physical Exam ED Vital Signs: Vital Signs - 24 hr 09/16/23 01:25 09/16/23 05:32 Temperature 98.6 F Pulse Rate 60 59 Respiratory Rate 18 18 Blood Pressure 112/55 L 128/69 Pulse Oximetry 99 98 Oxygen Delivery Method Room Air Room Air BMI result Body Mass Index 41.4 Appearance: Alert. Oriented X3. No acute distress. Eyes: Pupils equal, round and reactive to light. ENT: Pharynx normal. Neck: Normal inspection. Neck supple. No lymph nodes noted. No crepitus CVS: Normal heart rate and rhythm. Pulses normal. Normal S1 and S2 Respiratory: No respiratory distress. Breath sounds normal. No Wheezing. No rales Abdomen: Soft and nontender. No rigidity. No distention. good BS x4 Skin: Skin warm and dry. Normal skin color. Normal skin turgor. Extremities: No lower extremity edema. Neurovascular intact to all extremities. No Lacerations. No Rash Neuro: Oriented X 3. No motor deficit. No sensory deficit. Moving all extermities. No slurred speech Medications Administered Generic Name Dose Route Start Last Admin Trade Name Freq PRN Reason Stop Dose Admin Dextrose/Sodium Chloride 1,000 mls @ 100 mls/hr 09/16/23 03:45 09/16/23 05:53 D51/2ns IVCONT 0 mls/hr .Q10H PEARL Infusion Dextrose 250 mls @ 750 mls/hr 09/16/23 04:21 09/16/23 05:03 D10 IV Infused Q15M PRN Infusion per Hypoglycemia Standing Ord. Dextrose/Sodium Chloride 1,000 mls @ 250 mls/hr 09/16/23 05:45 09/16/23 05:54 D51/2ns IVCONT 250 mls/hr .Q4H PEARL Administration Discontinued Medications Generic Name Dose Route Start Last Admin Trade Name Andrewq PRN Reason Stop Dose Admin Glucagon 1 mg 09/16/23 06:38 09/16/23 06:51 Glucagon Hcl 1 Mg Vial IM 09/16/23 06:39 1 mg ONCE ONE Administration Loperamide HCl 2 mg 09/16/23 06:45 09/16/23 06:51 Loperamide Hcl 2 Mg Capsule PO 09/16/23 06:46 2 mg ONCE ONE Administration Medical Decision Making Medical Decision Making [facility] Narrative: Well-appearing not acute distress. Patient's sugar is low. Question etiology the medication has not changed. Patient is on the same dose of insulin. Was noted to have low sugar even prior to arrival prior to the insulin. Patient's sugar was in the 30s to 80s here in the emergency department. Will start a D5 drip. Will monitor closely. Baseline labs ordered. Patient's electrolytes came back with a low sugar of 25. Additional the 50 equivalent was given. Patient's initially was placed on D5 drip at 100 cc an hour. Will increase to 200 cc an hour. Sugar continued to be monitored. Patient's case discussed with the hospitalist team. Will require admission for further evaluation. Patient's D5 drip was increased to 250 per hour. Patient having diarrhea but no abdominal pain. Additional dose of glucagon was given. Will monitor patient's sugar carefully. Patient had the insulin last night. No sulfonylurea will be given this morning. Patient will most likely require admission. Had a preliminary discussion with hospitalist. Only wants patient to be admitted after the sugar has stabilized somewhat while on a D5. Patient baseline is on Lantus. Did receive his Lantus insulin last night. His checked a dose it was 10 units. Differential Diagnosis Differential Diagnoses: The differential diagnosis associated with the presentation includes Hypoglycemia, altered mental status, Admission/Observation Consideration of admission/observation: Escalation of care including admission/observation considered Consult Healthcare Provider Management of the patient was discussed with: Hospitalist Lab Data [facility] Lab Attestation statement: I reviewed the patient's lab results. 09/16/23 03:58 09/16/23 03:58 Labs: Lab Results 09/16/23 09/16/23 09/16/23 Range/Units 01:23 02:13 03:53 WBC (4.8-10.8) X10*3/uL RBC (4.60-5.80) X10*6/uL Hgb (14.0-18.0) g/dl Hct (42.0-52.0) % MCV (80.0-98.0) fL MCH (27.0-33.0) pg MCHC (31.0-36.0) g/dl RDW (11.0-16.0) % Plt Count (160-400) X10*3/uL MPV (9.4-12.4) fL Immature Gran % (Auto) (0.0-0.4) % Neut % (Auto) (45-73) % Lymph % (Auto) (20-40) % [place] % (Auto) (2-11) % Eos % (Auto) (0-4) % Baso % (Auto) (0-2) % Lymph # (Auto) (1.2-4.9) X10*3/uL [place] # (Auto) (0.1-1.2) X10*3/uL Eos # (Auto) (0.0-0.4) X10*3/uL Baso # (Auto) (0.0-0.2) X10*3/uL Abs Immat Gran (auto) (0.00-0.03) X10*3/uL Absolute Neuts (auto) (2.0-8.3) x10*3/uL Absolute Nucleated RBC (0.0-0.012) X10*3/uL Nucleated RBC % (auto) (0.0-0.2) /100WBC Sodium (135-145) mmol/L Potassium (3.3-5.1) mmol/L Chloride (96-108) mmol/L Carbon Dioxide (22-29) mmol/L Anion Gap (12-20) BUN (9-16) mg/dL Creatinine (0.5-1.4) mg/dL Estim Creat Clear Calc Estimated GFR POC Glucose 48 L* 81 (60-115) mg/dL Random Glucose (60-115) mg/dL Calcium (8.4-10.2) mg/dL Urine Color Yellow Urine Appearance Clear Urine pH 5.5 (5.0-9.0) Ur Specific [place] 1.010 (1.005-1.025) Urine Protein Negative (Neg-Trace) mg/dL Urine Glucose (UA) Negative (Negative) mg/dL Urine Ketones Negative (Negative) mg/dL Urine Blood Negative (Negative) Urine Nitrite Negative (Negative) Ur Leukocyte Esterase Negative (Negative) Urine RBC 0-2 (0-2) /HPF Urine WBC 0-5 (0-5) /HPF Ur Squamous Epith Cells 0-2 (0-2) /HPF Urine Bacteria None Seen (None Seen) Hyaline Casts 0-2 (0-2) /LPF 09/16/23 09/16/23 09/16/23 Range/Units 03:58 04:20 05:31 WBC 7.8 (4.8-10.8) X10*3/uL RBC 3.34 L (4.60-5.80) X10*6/uL Hgb 11.4 L (14.0-18.0) g/dl Hct 32.6 L (42.0-52.0) % MCV 97.6 (80.0-98.0) fL MCH 34.1 H (27.0-33.0) pg MCHC 35.0 (31.0-36.0) g/dl RDW 14.5 (11.0-16.0) % Plt Count 149 L (160-400) X10*3/uL MPV 9.8 (9.4-12.4) fL Immature Gran % (Auto) 0.4 (0.0-0.4) % Neut % (Auto) 72.6 (45-73) % Lymph % (Auto) 13.2 L (20-40) % [place] % (Auto) 12.4 H (2-11) % Eos % (Auto) 1.3 (0-4) % Baso % (Auto) 0.1 (0-2) % Lymph # (Auto) 1.0 L (1.2-4.9) X10*3/uL [place] # (Auto) 1.0 (0.1-1.2) X10*3/uL Eos # (Auto) 0.1 (0.0-0.4) X10*3/uL Baso # (Auto) 0.0 (0.0-0.2) X10*3/uL Abs Immat Gran (auto) 0.03 (0.00-0.03) X10*3/uL Absolute Neuts (auto) 5.7 (2.0-8.3) x10*3/uL Absolute Nucleated RBC 0.000 (0.0-0.012) X10*3/uL Nucleated RBC % (auto) 0.0 (0.0-0.2) /100WBC Sodium 138 (135-145) mmol/L Potassium 3.5 (3.3-5.1) mmol/L Chloride 104 (96-108) mmol/L Carbon Dioxide 24 (22-29) mmol/L Anion Gap 14 (12-20) BUN 13 (9-16) mg/dL Creatinine 0.81 (0.5-1.4) mg/dL Estim Creat Clear Calc 107.1 Estimated GFR > 60 POC Glucose 35 L* 59 L* (60-115) mg/dL Random Glucose 25 L* (60-115) mg/dL Calcium 8.7 (8.4-10.2) mg/dL Urine Color Urine Appearance Urine pH (5.0-9.0) Ur Specific [place] (1.005-1.025) Urine Protein (Neg-Trace) mg/dL Urine Glucose (UA) (Negative) mg/dL Urine Ketones (Negative) mg/dL Urine Blood (Negative) Urine Nitrite (Negative) Ur Leukocyte Esterase (Negative) Urine RBC (0-2) /HPF Urine WBC (0-5) /HPF Ur Squamous Epith Cells (0-2) /HPF Urine Bacteria (None Seen) Hyaline Casts (0-2) /LPF 09/16/23 Range/Units 06:27 WBC (4.8-10.8) X10*3/uL RBC (4.60-5.80) X10*6/uL Hgb (14.0-18.0) g/dl Hct (42.0-52.0) % MCV (80.0-98.0) fL MCH (27.0-33.0) pg MCHC (31.0-36.0) g/dl RDW (11.0-16.0) % Plt Count (160-400) X10*3/uL MPV (9.4-12.4) fL Immature Gran % (Auto) (0.0-0.4) % Neut % (Auto) (45-73) % Lymph % (Auto) (20-40) % [place] % (Auto) (2-11) % Eos % (Auto) (0-4) % Baso % (Auto) (0-2) % Lymph # (Auto) (1.2-4.9) X10*3/uL [place] # (Auto) (0.1-1.2) X10*3/uL Eos # (Auto) (0.0-0.4) X10*3/uL Baso # (Auto) (0.0-0.2) X10*3/uL Abs Immat Gran (auto) (0.00-0.03) X10*3/uL Absolute Neuts (auto) (2.0-8.3) x10*3/uL Absolute Nucleated RBC (0.0-0.012) X10*3/uL Nucleated RBC % (auto) (0.0-0.2) /100WBC Sodium (135-145) mmol/L Potassium (3.3-5.1) mmol/L Chloride (96-108) mmol/L Carbon Dioxide (22-29) mmol/L Anion Gap (12-20) BUN (9-16) mg/dL Creatinine (0.5-1.4) mg/dL Estim Creat Clear Calc Estimated GFR POC Glucose 46 L* (60-115) mg/dL Random Glucose (60-115) mg/dL Calcium (8.4-10.2) mg/dL Urine Color Urine Appearance Urine pH (5.0-9.0) Ur Specific [place] (1.005-1.025) Urine Protein (Neg-Trace) mg/dL Urine Glucose (UA) (Negative) mg/dL Urine Ketones (Negative) mg/dL Urine Blood (Negative) Urine Nitrite (Negative) Ur Leukocyte Esterase (Negative) Urine RBC (0-2) /HPF Urine WBC (0-5) /HPF Ur Squamous Epith Cells (0-2) /HPF Urine Bacteria (None Seen) Hyaline Casts (0-2) /LPF Independent Historian Clinical information obtained from an independent historian. History obtained from or confirmed by: Spouse External Record Review External record reviewed: Office record Chronic Conditions Patient?s care impacted by: Diabetes and Hypertension Discharge Plan Discharge Clinical Impression: Hypoglycemia Patient Disposition: Still a Patient Prescriptions: No Action albuterol sulfate [Ventolin HFA] 90 mcg/actuation HFA aerosol inhaler 2 puff inhalation Q4-6H PRN (Reason: for wheezing) Qty: 18 2RF warfarin 5 mg tablet 5 mg PO DAILY Qty: 90 0RF Protocol: Dose Management Condition: Tuesday (Week One) Dose/Route: 5 mg Instruction: 1 x 5 mg tablet Condition: Tuesday Dose/Route: 7.5 mg Instruction: 1.5 x 5 mg tablets Condition: Tuesday Dose/Route: 5 mg Instruction: 1 x 5 mg tablet Condition: Tuesday Dose/Route: 5 mg Instruction: 1 x 5 mg tablet Condition: Dose/Route: 5 mg Instruction: 1 x 5 mg tablet Condition: Tuesday Dose/Route: 5 mg Instruction: 1 x 5 mg tablet Condition: Tuesday Dose/Route: 5 mg Instruction: 1 x 5 mg tablet Condition: Tuesday (Week Two) Dose/Route: 5 mg Instruction: 1 x 5 mg tablet Condition: Tuesday Dose/Route: 7.5 mg Instruction: 1.5 x 5 mg tablets Condition: Tuesday Dose/Route: 5 mg Instruction: 1 x 5 mg tablet Condition: Tuesday Dose/Route: 5 mg Instruction: 1 x 5 mg tablet Condition: Dose/Route: 5 mg Instruction: 1 x 5 mg tablet Condition: Tuesday Dose/Route: 5 mg Instruction: 1 x 5 mg tablet Condition: Tuesday Dose/Route: 5 mg Instruction: 1 x 5 mg tablet Protocol Text: Adjustment Start Date: Tuesday08/29/23 INR Value: Pending INR Date: 08/29/23 Additional Instructions: REVIEW FOOD LIST WEEKLY, EAT A MIX OF FRUITS AND VEGETABLES, MAYBE NO GREENS TODAY Rx Instructions: 7.5MG TUE AND THUR, 5MG SAT SUN Tue metoprolol tartrate 25 mg tablet 25 mg PO BID atorvastatin 20 mg tablet 20 mg PO DAILY Jennifer Collins U-100 Insulin 100 unit/mL (3 mL) insulin pen 10 unit subcut BEDTIME (DME) pen needle, diabetic [BD Ultra-Fine Short Pen Needle] 31 gauge x 5/16 needle See Rx Instructions subcut DAILY Qty: 1200 Rx Instructions: As directed silver sulfadiazine 1 % cream topical DAILY PRN montelukast 10 mg tablet 10 mg PO BEDTIME Qty: 90 3RF glipizide 10 mg tablet extended release 24hr 10 mg PO DAILY lisinopril 5 mg tablet 5 mg PO DAILY losartan 25 mg tablet 25 mg PO DAILY 30 Days Qty: 30 5RF furosemide 20 mg tablet 20 mg PO DAILY PRN fluticasone propion-salmeterol [Wixela Inhub] 500-50 mcg/dose blister with device 1 inh inhalation BID sertraline [Zoloft] 25 mg tablet 25 mg PO DAILY Patient Comments: started 06/30/23 Print Language: Bulgarian
[2023-09-16] MEDS: Dextrose 5 % and 0.45 % NaCl 1,000 ML 100 ML IVCONT (03:57)
[2023-09-16 04:11] LABS: Basophils Percent Auto 0.1 % (0-2); Eosinophils Absolute Auto 0.1 X10*3/uL (0.0-0.4); Eosinophils Percent Auto 1.3 % (0-4); Hematocrit 32.6 % (42.0-52.0); Hemoglobin 11.4 g/dl (14.0-18.0); Imm Gran Abs Auto 0.03 X10*3/uL (0.00-0.03); Imm Gran Pct Auto 0.4 % (0.0-0.4); Lymphocytes Percent Auto 13.2 % (20-40); MANUAL DIFF FLAG NO; Mean Corpuscular Hemoglobin 34.1 pg (27.0-33.0); Mean Corpuscular Volume 97.6 fL (80.0-98.0); Mean Platelet Volume 9.8 fL (9.4-12.4); Monocytes Percent Auto 12.4 % (2-11); Neutrophils Absolute Auto 5.7 x10*3/uL (2.0-8.3); Neutrophils Percent Auto 72.6 % (45-73); Platelet Count 149 X10*3/uL (160-400); Red Blood Count 3.34 X10*6/uL (4.60-5.80); Red Cell Distribution Width 14.5 % (11.0-16.0); White Blood Count 7.8 X10*3/uL (4.8-10.8)
[2023-09-16 04:12] LABS: Appearance Urine Clear; Color Urine Yellow; Glucose Urine UA Negative (Negative); Leukocyte Esterase Urine Negative (Negative); Nitrite Urine Negative (Negative); PH 5.5 (5.0-9.0); Urine Blood Negative (Negative); Urine Ketones Negative (Negative); Urine Protein Negative (Neg-Trace)
[2023-09-16 04:15] LABS: Bacteria Urine None Seen (None Seen); Hyaline Casts Urine 0-2 /LPF (0-2); RBC Urine 0-2 /HPF (0-2); Squamous Epithelial Cell Urine 0-2 /HPF (0-2); WBC Urine 0-5 /HPF (0-5)
[2023-09-16 04:25] LABS: Glucose, Whole Blood 35 mg/dL (60-115)
[2023-09-16] MEDS: Dextrose 10 % 250 ML 750 ML IV ×2 (04:27→11:07)
[2023-09-16 04:28] LABS: Anion Gap 14 (12-20); Blood Urea Nitrogen 13 mg/dL (9-16); Calcium 8.7 mg/dL (8.4-10.2); Carbon Dioxide 24 mmol/L (22-29); Chloride 104 mmol/L (96-108); Creatinine Clr Calc Pharmacy 107.1; Estimated Glomerular Filt Rate > 60; Glucose Random 25 mg/dL (60-115); Potassium 3.5 mmol/L (3.3-5.1); Sodium 138 mmol/L (135-145)
--- NOTE | 2023-09-16 04:34 | PM.EVENT ---
Event Note Date of Service: 09/16/23 Event Note: 4:30 AM - Contacted by ED provider, Dr. Purcell, to admit Mr. Vasquez. According to triage notes patient was found unresponsive. By EMS, his glucose was < 20. Requiring tx with D10 and half a sandiwich. Glucose increased to 156 but dropped again to 50. Upon arrival to ED glucose was found to be 48 --> 81-->25 --> 35. ED provider is requesting patient to be admitted despite patient persist's with hypoglycemia while receiving infusion with D5. I did recommend him to start patient on D10 infusion. At this time it is not appropriate to admit patient to regular med surg floor as the patient requires glucose checks every hour and the patient is still having profound hypoglycemia (35 at 4:20 am). Time Spent With Patient Time: Total time managing care of this patient today ____ minutes.
--- NOTE | 2023-09-16 04:58 | PC.NURSE ---
per MD, D5 0.45% NaCl rate increase to 200ml/hr
--- NOTE | 2023-09-16 05:33 | PC.NURSE ---
multiple episodes of loose watery stool, MD aware. not normal for pt to be incont of BM. pt washed and changed many times
[2023-09-16 05:36] LABS: Glucose, Whole Blood 59 mg/dL (60-115)
[2023-09-16] MEDS: Dextrose 5 % and 0.45 % NaCl 1,000 ML 250 ML IVCONT (05:54)
--- NOTE | 2023-09-16 05:57 | PC.NURSE ---
More juice given and D5 0.45 Nacl titrated up to 250 ml/hr per Dr Purcell.
[2023-09-16 06:30] LABS: Glucose, Whole Blood 46 mg/dL (60-115)
[2023-09-16] MEDS: glucagon HCL 1 MG VIAL IM (06:51)
[2023-09-16] MEDS: Loperamide HCl 2 MG CAPSULE PO (06:51)
[2023-09-16 07:37] LABS: Glucose, Whole Blood 105 mg/dL (60-115)
[2023-09-16 08:30] LABS: Glucose, Whole Blood 68 mg/dL (60-115)
[2023-09-16] MEDS: Dextrose 10 % 1,000 ML 75 ML IVCONT ×2 (09:11→19:05)
--- NOTE | 2023-09-16 09:31 | PC.NURSE ---
continues to be incontinent of stool, gi/cdiff samples being obtained. fluids changed to d10 at 75mLs/hr.
[2023-09-16 09:52] LABS: Glucose, Whole Blood 66 mg/dL (60-115)
[2023-09-16 10:31] LABS: Glucose, Whole Blood 58 mg/dL (60-115)
[2023-09-16 10:41] LABS: CDiff Gene PCR NEGATIVE (Negative)
[2023-09-16] MEDS: ondansetron HCL 4 MG/2 ML VIAL IVPUSH ×2 (11:01→16:13)
--- NOTE | 2023-09-16 11:10 | PC.NURSE ---
verbal order to increase d10 from 75mL to 125mL. prn dextrose infusing through second IV. medicated per the MAR. remains alert and oriented to baseline speaking in full clear sentences. has had episode of vomiting, medicated w/ zofran. awaiting ct scan at this time
[2023-09-16] MEDS: iohexoL 350 MG/ML 75 ML INFUS..BTL 85 ML IV (11:34)
[2023-09-16 11:58] LABS: Adenovirus F 40/41 Not Detected (Not Detect.); Astrovirus Not Detected (Not Detect.); Campylobacter Not Detected (Not Detect.); Cryptosporidium Not Detected (Not Detect.); Cyclospora cayetanensis Not Detected (Not Detect.); E. coli EAEC Not Detected (Not Detect.); E. coli EPEC Detected (Not Detect.); E. coli ETEC Not Detected (Not Detect.); E. coli STEC Not Detected (Not Detect.); Entamoeba histolytica Not Detected (Not Detect.); Giardia lamblia Not Detected (Not Detect.); Plesiomonas shigelloides Not Detected (Not Detect.); Rotavirus A Not Detected (Not Detect.); Salmonella Not Detected (Not Detect.); Sapovirus Not Detected (Not Detect.); Shigella sp./EIEC Not Detected (Not Detect.); Vibrio Not Detected (Not Detect.); Vibrio Cholerae Not Detected (Not Detect.); Yersinia enterocolitica Not Detected (Not Detect.)
[2023-09-16 11:59] LABS: Glucose, Whole Blood 76 mg/dL (60-115)
[2023-09-16 13:25] LABS: Glucose, Whole Blood 121 mg/dL (60-115)
[2023-09-16 14:27] LABS: Glucose, Whole Blood 131 mg/dL (60-115)
[2023-09-16 15:11] LABS: Glucose, Whole Blood 145 mg/dL (60-115)
--- NOTE | 2023-09-16 15:18 | P.HPHOSP_ITS ---
History of Present Illness Date of Service: 09/16/23 Chief Complaint: Hypoglycemia, Diarrhea A 73 years old patient with PMH of COPD, Asthma, AVR on Warfarin among others who presents to the hospital with severe hypoglycemia and recurrent diarrhea. He was doing fairly ok until yesterday when his sugar readings were on the lower end most of the day and not eating much. he received his dose of Lantus at bedtime after that and was found altered with low BS of 25 or so. EMS was called and he was brought to the hospital. He takes Glipizide and Lantus at home. He started having episodse of watery diarrhea with no reported pain, fever or chills. denies eating outside or having any sick contacts. Found positive EPEC in stool. Admitted for further eval and treatment. Review of Systems 2 Review of Systems: No fever, chills but has weakness No chest pain, palpitation No shortness of breath or coughing No abdominal pain but having diarrhea and dry heaving No urinary symptoms PMFSH Medical History Cough Asthma-COPD overlap syndrome Steroid dependence COPD (chronic obstructive pulmonary disease) Eosinophilic asthma Social History Patient Tobacco Use Status: Former Tobacco user Smoked in Last 30 Days: No Use of substances other than those prescribed or required for medical reasons: No Advance Directives: No Advance Directives Information Provided: Yes Meds Allergies Allergy/AdvReac Type Severity Reaction Status Date / Time metformin AdvReac Intermediate Stomach Verified 09/16/23 01:27 Upset Active Medications: Current Medications Acetaminophen (Acetaminophen 325 Mg Tablet) 650 mg PO Q6H PRN PRN Reason: Pain, Mild (Pain Scale 1-3) Dextrose (D10) 1,000 mls @ 75 mls/hr IVCONT .[id number] PEARL Last Admin: 09/16/23 09:11 Dose: 75 mls/hr Dextrose (D10) 250 mls @ 750 mls/hr IV Q15M PRN PRN Reason: per Hypoglycemia Standing Ord. Last Infusion: 09/16/23 12:01 Dose: Infused Azithromycin 500 mg/ Sodium (Chloride) 250 mls @ 125 mls/hr IV Q24H PEARL Ondansetron HCl (Ondansetron Hcl 4 Mg/2 Ml Vial) 4 mg IVPUSH Q8H PRN PRN Reason: Nausea and Vomiting Sodium Chloride (0.9 % Sodium Chloride Flush 3 Ml Syringe) 3 ml IVFLUSH [facility] Home Medications ?Medication ?Instructions ?Recorded ?Confirmed ?Last Taken ?Type atorvastatin 20 mg tablet 20 mg PO DAILY@19302/20/20 09/16/23 09/15/23 History insulin glargine 100 unit/mL (3 10 unit subcut DAILY@18302/20/20 09/16/23 09/15/23 History mL) subcutaneous pen metoprolol tartrate 25 mg tablet 25 mg PO BID 02/20/20 09/16/23 09/15/23 History pen needle, diabetic 31 gauge x #1,200 ea 06/04/21 08/29/23 Unknown History 08/31 (BD Ultra-Fine Short Pen Needle) furosemide 20 mg tablet 20 mg PO DAILY PRN Edema 04/05/23 09/16/23 Unknown History glipizide 10 mg tablet, extended 10 mg PO DAILY@81405/05/23 09/16/23 09/15/23 History release 24 hr fluticasone 500 mcg-salmeterol 50 1 inh inhalation BID 06/22/23 09/16/23 09/15/23 History mcg/dose blistr powdr for inhalation (Wixela Inhub) silver sulfadiazine 1 % topical 1 appl topical DAILY PRN wounds 06/22/23 09/16/23 Unknown History cream sertraline 25 mg tablet (Zoloft) 25 mg PO DAILY@0730 06/30/23 09/16/23 09/15/23 History lisinopril 5 mg tablet 5 mg PO DAILY@15 08/29/23 09/16/23 09/15/23 History acetaminophen 500 mg tablet 1,000 mg PO DAILY PRN Pain 09/16/23 09/16/23 Unknown History montelukast 10 mg tablet 10 mg PO DAILY@1929 asthma 09/16/23 09/16/23 09/15/23 History warfarin 5 mg tablet 5 mg PO SUTUWETHFRSA 09/16/23 09/16/23 09/15/23 History warfarin 5 mg tablet 7.5 mg PO MO 09/16/23 09/16/23 Unknown History Physical Exam 2 Vital Signs and Narrative: Vital Signs: Last Vital Signs Temp 98.1 F 09/16/23 14:26 Pulse 60 09/16/23 14:26 Resp 20 09/16/23 14:26 BP 91/64 09/16/23 14:26 Pulse Ox 98 09/16/23 14:26 O2 Del Method Room Air 09/16/23 14:26 BMI result Body Mass Index 41.4 Const: Other: Constitutional : Awake, interactive, obese, in distress from dry heaving Neck : Normal inspection, Supple Cardiovascular : RRR, no JVP, no lower extremity edema Respiratory : good bilateral air entry, no crackles, wheezes or rhonchi Gastrointestinal: soft, lax, Normal bowel sounds, mild generalized tenderness Skin : Warm, Dry Neurological : Alert & oriented x3, No focal deficit Results Labs 09/16/23 03:58 09/16/23 03:58 Labs: Laboratory Results - last 24 hr 09/16/23 09/16/23 09/16/23 01:23 02:13 03:53 MCV MCH MCHC RDW Plt Count MPV Immature Gran % (Auto) Neut % (Auto) Lymph % (Auto) Mcleod % (Auto) Eos % (Auto) Baso % (Auto) Lymph # (Auto) Mcleod # (Auto) Eos # (Auto) Baso # (Auto) Abs Immat Gran (auto) Absolute Neuts (auto) Absolute Nucleated RBC Nucleated RBC % (auto) Anion Gap Estim Creat Clear Calc Estimated GFR POC Glucose 48 L* 81 Random Glucose Calcium Urine Color Yellow Urine Appearance Clear Urine pH 5.5 Ur Specific Howells 1.010 Urine Protein Negative Urine Glucose (UA) Negative Urine Ketones Negative Urine Blood Negative Urine Nitrite Negative Ur Leukocyte Esterase Negative Urine RBC 0-2 Urine WBC 0-5 Ur Squamous Epith Cells 0-2 Urine Bacteria None Seen Hyaline Casts 0-2 Stl C. cayetanensis PCR Stool Rotavirus A PCR Stl Adenov F 40/41 PCR Stool Astrovirus (PCR) Stool Campylobacter PCR Stool Cryptosporidium PCR Stl Sh Tox Pr E STEC PCR Stool E coli O157 PCR Stl Enterotoxigenic E PCR Stool EPEC (PCR) Stool EAEC (PCR) Stl E. histolytica PCR Stool Giardia Lamblia PCR Stl P. shigelloides PCR Stool Salmonella PCR Stool Sapovirus (PCR) Stl Shigella/EIEC PCR St Y.enterocolitica PCR Stool Vibrio (PCR) Stl Vibrio cholerae PCR Stl Norovirus GI/GII PCR C. difficile Tox B Gene 09/16/23 09/16/23 09/16/23 03:58 04:20 05:31 MCV 97.6 MCH 34.1 H MCHC 35.0 RDW 14.5 Plt Count 149 L MPV 9.8 Immature Gran % (Auto) 0.4 Neut % (Auto) 72.6 Lymph % (Auto) 13.2 L Mcleod % (Auto) 12.4 H Eos % (Auto) 1.3 Baso % (Auto) 0.1 Lymph # (Auto) 1.0 L Mcleod # (Auto) 1.0 Eos # (Auto) 0.1 Baso # (Auto) 0.0 Abs Immat Gran (auto) 0.03 Absolute Neuts (auto) 5.7 Absolute Nucleated RBC 0.000 Nucleated RBC % (auto) 0.0 Anion Gap 14 Estim Creat Clear Calc 107.1 Estimated GFR > 60 POC Glucose 35 L* 59 L* Random Glucose 25 L* Calcium 8.7 Urine Color Urine Appearance Urine pH Ur Specific Howells Urine Protein Urine Glucose (UA) Urine Ketones Urine Blood Urine Nitrite Ur Leukocyte Esterase Urine RBC Urine WBC Ur Squamous Epith Cells Urine Bacteria Hyaline Casts Stl C. cayetanensis PCR Stool Rotavirus A PCR Stl Adenov F 40/41 PCR Stool Astrovirus (PCR) Stool Campylobacter PCR Stool Cryptosporidium PCR Stl Sh Tox Pr E STEC PCR Stool E coli O157 PCR Stl Enterotoxigenic E PCR Stool EPEC (PCR) Stool EAEC (PCR) Stl E. histolytica PCR Stool Giardia Lamblia PCR Stl P. shigelloides PCR Stool Salmonella PCR Stool Sapovirus (PCR) Stl Shigella/EIEC PCR St Y.enterocolitica PCR Stool Vibrio (PCR) Stl Vibrio cholerae PCR Stl Norovirus GI/GII PCR C. difficile Tox B Gene 09/16/23 09/16/23 09/16/23 06:27 07:31 08:26 MCV MCH MCHC RDW Plt Count MPV Immature Gran % (Auto) Neut % (Auto) Lymph % (Auto) Mcleod % (Auto) Eos % (Auto) Baso % (Auto) Lymph # (Auto) Mcleod # (Auto) Eos # (Auto) Baso # (Auto) Abs Immat Gran (auto) Absolute Neuts (auto) Absolute Nucleated RBC Nucleated RBC % (auto) Anion Gap Estim Creat Clear Calc Estimated GFR POC Glucose 46 L* 105 68 Random Glucose Calcium Urine Color Urine Appearance Urine pH Ur Specific Howells Urine Protein Urine Glucose (UA) Urine Ketones Urine Blood Urine Nitrite Ur Leukocyte Esterase Urine RBC Urine WBC Ur Squamous Epith Cells Urine Bacteria Hyaline Casts Stl C. cayetanensis PCR Stool Rotavirus A PCR Stl Adenov F PCR Stool Astrovirus (PCR) Stool Campylobacter PCR Stool Cryptosporidium PCR Stl Sh Tox Pr E STEC PCR Stool E coli O157 PCR Stl Enterotoxigenic E PCR Stool EPEC (PCR) Stool EAEC (PCR) Stl E. histolytica PCR Stool Giardia Lamblia PCR Stl P. shigelloides PCR Stool Salmonella PCR Stool Sapovirus (PCR) Stl Shigella/EIEC PCR St Y.enterocolitica PCR Stool Vibrio (PCR) Stl Vibrio cholerae PCR Stl Norovirus GI/GII PCR C. difficile Tox B Gene 09/16/23 09/16/23 09/16/23 09:38 09:46 10:27 MCV MCH MCHC RDW Plt Count MPV Immature Gran % (Auto) Neut % (Auto) Lymph % (Auto) Mcleod % (Auto) Eos % (Auto) Baso % (Auto) Lymph # (Auto) Mcleod # (Auto) Eos # (Auto) Baso # (Auto) Abs Immat Gran (auto) Absolute Neuts (auto) Absolute Nucleated RBC Nucleated RBC % (auto) Anion Gap Estim Creat Clear Calc Estimated GFR POC Glucose 66 58 L* Random Glucose Calcium Urine Color Urine Appearance Urine pH Ur Specific Howells Urine Protein Urine Glucose (UA) Urine Ketones Urine Blood Urine Nitrite Ur Leukocyte Esterase Urine RBC Urine WBC Ur Squamous Epith Cells Urine Bacteria Hyaline Casts Stl C. cayetanensis PCR Not Detected Stool Rotavirus A PCR Not Detected Stl Adenov F PCR Not Detected Stool Astrovirus (PCR) Not Detected Stool Campylobacter PCR Not Detected Stool Cryptosporidium PCR Not Detected Stl Sh Tox Pr E STEC PCR Not Detected Stool E coli O157 PCR Not applicable Stl Enterotoxigenic E PCR Not Detected Stool EPEC (PCR) Detected A Stool EAEC (PCR) Not Detected Stl E. histolytica PCR Not Detected Stool Giardia Lamblia PCR Not Detected Stl P. shigelloides PCR Not Detected Stool Salmonella PCR Not Detected Stool Sapovirus (PCR) Not Detected Stl Shigella/EIEC PCR Not Detected St Y.enterocolitica PCR Not Detected Stool Vibrio (PCR) Not Detected Stl Vibrio cholerae PCR Not Detected Stl Norovirus GI/GII PCR See Comment C. difficile Tox B Gene NEGATIVE 09/16/23 09/16/23 09/16/23 11:47 13:19 14:22 MCV MCH MCHC RDW Plt Count MPV Immature Gran % (Auto) Neut % (Auto) Lymph % (Auto) Mcleod % (Auto) Eos % (Auto) Baso % (Auto) Lymph # (Auto) Mcleod # (Auto) Eos # (Auto) Baso # (Auto) Abs Immat Gran (auto) Absolute Neuts (auto) Absolute Nucleated RBC Nucleated RBC % (auto) Anion Gap Estim Creat Clear Calc Estimated GFR POC Glucose 76 121 H 131 H Random Glucose Calcium Urine Color Urine Appearance Urine pH Ur Specific Howells Urine Protein Urine Glucose (UA) Urine Ketones Urine Blood Urine Nitrite Ur Leukocyte Esterase Urine RBC Urine WBC Ur Squamous Epith Cells Urine Bacteria Hyaline Casts Stl C. cayetanensis PCR Stool Rotavirus A PCR Stl Adenov F 40/41 PCR Stool Astrovirus (PCR) Stool Campylobacter PCR Stool Cryptosporidium PCR Stl Sh Tox Pr E STEC PCR Stool E coli O157 PCR Stl Enterotoxigenic E PCR Stool EPEC (PCR) Stool EAEC (PCR) Stl E. histolytica PCR Stool Giardia Lamblia PCR Stl P. shigelloides PCR Stool Salmonella PCR Stool Sapovirus (PCR) Stl Shigella/EIEC PCR St Y.enterocolitica PCR Stool Vibrio (PCR) Stl Vibrio cholerae PCR Stl Norovirus GI/GII PCR C. difficile Tox B Gene 09/16/23 15:07 MCV MCH MCHC RDW Plt Count MPV Immature Gran % (Auto) Neut % (Auto) Lymph % (Auto) Mcleod % (Auto) Eos % (Auto) Baso % (Auto) Lymph # (Auto) Mcleod # (Auto) Eos # (Auto) Baso # (Auto) Abs Immat Gran (auto) Absolute Neuts (auto) Absolute Nucleated RBC Nucleated RBC % (auto) Anion Gap Estim Creat Clear Calc Estimated GFR POC Glucose 145 H Random Glucose Calcium Urine Color Urine Appearance Urine pH Ur Specific Howells Urine Protein Urine Glucose (UA) Urine Ketones Urine Blood Urine Nitrite Ur Leukocyte Esterase Urine RBC Urine WBC Ur Squamous Epith Cells Urine Bacteria Hyaline Casts Stl C. cayetanensis PCR Stool Rotavirus A PCR Stl Adenov F 40/41 PCR Stool Astrovirus (PCR) Stool Campylobacter PCR Stool Cryptosporidium PCR Stl Sh Tox Pr E STEC PCR Stool E coli O157 PCR Stl Enterotoxigenic E PCR Stool EPEC (PCR) Stool EAEC (PCR) Stl E. histolytica PCR Stool Giardia Lamblia PCR Stl P. shigelloides PCR Stool Salmonella PCR Stool Sapovirus (PCR) Stl Shigella/EIEC PCR St Y.enterocolitica PCR Stool Vibrio (PCR) Stl Vibrio cholerae PCR Stl Norovirus GI/GII PCR C. difficile Tox B Gene Imaging Radiologist's Impressions: Impressions Abdomen/Pelvis CT 09/16/23 11:52 IMPRESSION: Fluid and gaseous distention of small and large bowel loops. Gastric distention. No focal point of transition. No focal bowel wall thickening. This may represent enterocolitis. Infectious and inflammatory etiologies should be considered. Cholelithiasis. Assessment and Plan (1) Enterocolitis: Status: Acute (2) Diarrhea: Qualifiers: Diarrhea type: infectious Qualified Code(s): A09 - Infectious gastroenteritis and colitis, unspecified Status: Acute (3) Hypoglycemia: Status: Acute (4) Enteropathogenic Escherichia coli infection: Status: Acute Plan A 73 years old patient with PMH of COPD, Asthma, AVR on Warfarin among others who presents to the hospital with severe hypoglycemia and recurrent diarrhea Acute hypoglycemia 2/2 Type II DM medications Hold Lantus and Glipizide Continue D10 POC Q2 regular diet for now Likely related to acute infx w Noro virus\EPEC Intractable diarrhea 2/2 EPEC and Noro virus infection Both positive in stool panel supportive therapy with IVF, Zofran Azithromycin for 3 days Hold on Lomotil for now Hx AVR Continue Warfarin INR daily HTN Hold Losartan, Metoprolol COPD PRN Albuterol Home inhalors DVT PPx Warfarin The patient will likely need 2 overnight hospital stay for monitoring hypoglycemia and treatment of significant diarrhea pending clinical improvement and PT evaluation. Quality Stroke Does the patient have a stroke diagnosis?: No VTE Prior VTE?: No VTE Risk Level:: Medical - moderate - high VTE Device Contraindication: Treatment Not Indicated VTE Drug Contraindication: N/A - Med Ordered
--- NOTE | 2023-09-16 15:25 | PHA.MEDREC ---
Pharmacy Consult ? Medication Reconciliation Pharmacy has completed the medication reconciliation. spoke with patients at bedside. She had a list with her as well. She reports on 07/18 he went back on lisinopril and no longer takes losartan. She confirmed his warfarin dosing and insulin units. She confirmed he uses glipizide once daily, only does 1 puff of wixela BID. She reports he has not taken the furosemide in a long time (uses prn). She reports he took all of his scheduled medications yesterday but nothing today.
--- NOTE | 2023-09-16 15:35 | MHC.IC ---
Preliminary positive for NOROVIRUS. Strict handwashing w soap and water, cleaning with bleach, pending final result.
[2023-09-16] MEDS: Azithromycin 500 MG in 0.9 % Sodium Chloride 250 ML 125 MG IV (15:56)
[2023-09-16 16:09] LABS: Glucose, Whole Blood 153 mg/dL (60-115)
--- NOTE | 2023-09-16 16:29 | PC.NURSE ---
provider made aware of episode of vomiting w/ color change from this AM. vomit dark appearing, guaiac performed on vomit - found to be positive. provider states to hold warfarin today and will be adding pantoprazole.
[2023-09-16] MEDS: 0.9 % Sodium Chloride Flush 3 ML SYRINGE IVFLUSH (17:16)
[2023-09-16] MEDS: Pantoprazole Sodium 40 MG/10 ML VIAL IVPUSH (17:16)
[2023-09-16 17:57] LABS: Glucose, Whole Blood 172 mg/dL (60-115)
[2023-09-16 18:06] LABS: Prothrombin Time 105.2 SEC (11.1-13.3)
[2023-09-16 18:21] LABS: INTERNATIONAL NORM RATIO 8.6 (0.9-1.1)
[2023-09-16 20:11] LABS: Glucose, Whole Blood 181 mg/dL (60-115)
[2023-09-16 22:15] LABS: Glucose, Whole Blood 188 mg/dL (60-115)
[2023-09-17 00:03] LABS: Glucose, Whole Blood 182 mg/dL (60-115)
[2023-09-17 02:25] LABS: Glucose, Whole Blood 189 mg/dL (60-115)
[2023-09-17 04:00] VITALS: BP 111/63; PULSE 61; RESP 18; TEMP 36.3; O2SAT 94
[2023-09-17 04:29] LABS: Glucose, Whole Blood 184 mg/dL (60-115)
[2023-09-17] MEDS: Pantoprazole Sodium 40 MG/10 ML VIAL IVPUSH ×2 (05:41→17:21)
[2023-09-17 06:50] VITALS: BP 142/75; PULSE 61; RESP 18; TEMP 36.4; O2SAT 98
[2023-09-17 07:00] LABS: Glucose, Whole Blood 186 mg/dL (60-115)
[2023-09-17 07:52] LABS: Anion Gap 13 (12-20); Blood Urea Nitrogen 8 mg/dL (9-16); Calcium 8.2 mg/dL (8.4-10.2); Carbon Dioxide 20 mmol/L (22-29); Chloride 103 mmol/L (96-108); Creatinine Clr Calc Pharmacy 112.6; Estimated Glomerular Filt Rate > 60; Glucose Random 190 mg/dL (60-115); Potassium 3.9 mmol/L (3.3-5.1); Sodium 132 mmol/L (135-145)
[2023-09-17] MEDS: 0.9 % Sodium Chloride Flush 3 ML SYRINGE IVFLUSH ×2 (08:03→17:22)
--- NOTE | 2023-09-17 09:35 | MHC.CM.PN ---
IMM 09/17/23, Pt lives with his , he does not have home health services, for DME he has diabetic supplies, his will transport home at [place]. HCP will be completed here and added to chart. PCP confirmed: Dr. Nicole. DCP: home, self care.
[2023-09-17] MEDS: Dextrose 10 % 1,000 ML 75 ML IVCONT (11:10)
[2023-09-17 11:15] LABS: Glucose, Whole Blood 147 mg/dL (60-115)
--- NOTE | 2023-09-17 13:21 | HO.PM.IMPN ---
Subjective Subjective Date of Service: 09/17/23 Interval History: seen and evaluated this morning no more episodes of hypoglycemia INR increased to 11 Diarrhea resolving no fever or chills Review of Systems Review of Systems: Yes all other systems are reviewed and are negative Physical Exam Vital Signs: Vital Signs: Last Vital Signs Temp 97.6 F 09/17/23 06:50 Pulse 61 09/17/23 06:50 Resp 18 09/17/23 06:50 BP 142/75 H 09/17/23 06:50 Pulse Ox 98 09/17/23 06:50 O2 Del Method Room Air 09/17/23 06:50 BMI result Body Mass Index 41.4 Const: Other: Constitutional : Awake, interactive, obese, in distress from dry heaving Neck : Normal inspection, Supple Cardiovascular : RRR, no JVP, no lower extremity edema, metallic click Respiratory : good bilateral air entry, no crackles, wheezes Gastrointestinal: soft, lax, Normal bowel sounds, mild LLQtenderness Skin : Warm, Dry Neurological : Alert & oriented x3, No focal deficit Objective Data Active Medications Acetaminophen (Acetaminophen 325 Mg Tablet) 650 mg PO Q6H PRN PRN Reason: Pain, Mild (Pain Scale 1-3) Albuterol Sulfate (Albuterol Sulfate (0.083%) 2.5 Mg/3 Ml Vial.Neb) 2.5 mg INHALE Q4H PRN PRN Reason: Shortness of Breath/Wheezing Fluticasone/Vilanterol (Fluticasone/Vilanterol 200/25 Blst.W.Dev) 1 puff INHALE RDAILY [facility] Last Admin: 09/17/23 07:54 Dose: Not Given Documented By: DEEPTI Non-Admin Reason: med unavailable pharmacy called Dextrose (D10) 1,000 mls @ 75 mls/hr IVCONT .[id number] [facility] Last Admin: 09/17/23 11:10 Dose: 75 mls/hr Documented By: JEREMI Dextrose (D10) 250 mls @ 750 mls/hr IV Q15M PRN PRN Reason: per Hypoglycemia Standing Ord. Last Infusion: 09/16/23 12:01 Dose: Infused Documented By: NATALIO Azithromycin 500 mg/ Sodium (Chloride) 250 mls @ 125 mls/hr IV Q24H [facility] Last Infusion: 09/16/23 18:05 Dose: Infused Documented By: GELY Ondansetron HCl (Ondansetron Hcl 4 Mg/2 Ml Vial) 4 mg IVPUSH Q8H PRN PRN Reason: Nausea and Vomiting Last Admin: 09/16/23 16:13 Dose: 4 mg Documented By: KARLY Pantoprazole Sodium (Pantoprazole Sodium 40 Mg/10 Ml Vial) 40 mg IVPUSH BID@0630,1630 [facility] Last Admin: 09/17/23 05:41 Dose: 40 mg Documented By: LA Sodium Chloride (0.9 % Sodium Chloride Flush 3 Ml Syringe) 3 ml IVFLUSH QSHIFT [facility] Last Admin: 09/17/23 08:03 Dose: 3 ml Documented By: JEREMI Labs 09/16/23 03:58 09/17/23 06:28 Labs: Laboratory Results - last 24 hr 09/16/23 09/16/23 09/16/23 13:19 14:22 15:07 Hold Purple Top PT INR Anion Gap Estim Creat Clear Calc Estimated GFR POC Glucose 121 H 131 H 145 H Random Glucose Calcium Hold Green Top Hold Yellow Top 09/16/23 09/16/23 09/16/23 16:05 17:17 17:53 Hold Purple Top SEE NOTE PT 105.2 H D INR 8.6 H* D Anion Gap Estim Creat Clear Calc Estimated GFR POC Glucose 153 H 172 H Random Glucose Calcium Hold Green Top See Note Hold Yellow Top See Note 09/16/23 09/16/23 09/16/23 20:03 22:11 23:59 Hold Purple Top PT INR Anion Gap Estim Creat Clear Calc Estimated GFR POC Glucose 181 H 188 H 182 H Random Glucose Calcium Hold Green Top Hold Yellow Top 09/17/23 09/17/23 09/17/23 02:18 04:22 06:28 Hold Purple Top PT 134.0 H D INR 11.0 H* D Anion Gap 13 Estim Creat Clear Calc 112.6 Estimated GFR > 60 POC Glucose 189 H 184 H Random Glucose 190 H Calcium 8.2 L Hold Green Top Hold Yellow Top 09/17/23 09/17/23 06:54 11:11 Hold Purple Top PT INR Anion Gap Estim Creat Clear Calc Estimated GFR POC Glucose 186 H 147 H Random Glucose Calcium Hold Green Top Hold Yellow Top Assessment and Plan (1) Enteropathogenic Escherichia coli infection: Status: Acute (2) Diarrhea: Status: Acute (3) Hypoglycemia: Status: Acute (4) Supratherapeutic INR: Status: Acute Plan A 73 years old patient with PMH of COPD, Asthma, AVR on Warfarin among others who presents to the hospital with severe hypoglycemia and recurrent diarrhea Acute hypoglycemia 2/2 Type II DM medications Hold Lantus and Glipizide Continue D10 POC Q2 regular diet for now Likely related to acute infx w Noro virus (pending confirmation)\EPEC Intractable diarrhea 2/2 EPEC and Noro virus infection improvingl supportive therapy with IVF, Zofran Hold Azithromycin today Hold on Lomotil for now Hx AVR w Subratherapeutic INR INR of 11 with no evidence of bleeding Hold Warfarin, hold on Vit K INR daily HTN Hold Losartan, Metoprolol COPD PRN Albuterol Home inhalors DVT PPx Warfarin The patient will likely need overnight hospital stay for monitoring hypoglycemia , Elevated INR and bleeding with treatment of significant diarrhea pending clinical improvement and PT evaluation. Quality Stroke Does the patient have a stroke diagnosis?: No VTE Prior VTE?: No VTE Risk Level:: Medical - moderate - high VTE Device Contraindication: Treatment Not Indicated VTE Drug Contraindication: N/A - Med Ordered
[2023-09-17 15:01] VITALS: BP 146/78; PULSE 60; RESP 18; TEMP 36.7; O2SAT 95
[2023-09-17 15:52] LABS: Glucose, Whole Blood 175 mg/dL (60-115)
[2023-09-17 20:00] VITALS: BP 144/64; PULSE 60; RESP 20; TEMP 36.9; O2SAT 94
[2023-09-17 21:11] LABS: Glucose, Whole Blood 144 mg/dL (60-115)
[2023-09-18] VITALS (7 sets, daily range): BP systolic 144–178; BP diastolic 70–80; PULSE 60–69; RESP 18–20; TEMP 36.6–36.9; O2SAT 92–97
[2023-09-18 00:15] LABS: Glucose, Whole Blood 160 mg/dL (60-115)
[2023-09-18] MEDS: Dextrose 10 % 1,000 ML 75 ML IVCONT (02:10)
[2023-09-18 04:22] LABS: Glucose, Whole Blood 157 mg/dL (60-115)
[2023-09-18] MEDS: Pantoprazole Sodium 40 MG/10 ML VIAL IVPUSH ×2 (05:21→16:37)
[2023-09-18 06:37] LABS: Hematocrit 32.9 % (42.0-52.0); Hemoglobin 11.4 g/dl (14.0-18.0); Mean Corpuscular HGB Conc 34.7 g/dl (31.0-36.0); Mean Corpuscular Hemoglobin 33.4 pg (27.0-33.0); Mean Corpuscular Volume 96.5 fL (80.0-98.0); Mean Platelet Volume 10.4 fL (9.4-12.4); Platelet Count 159 X10*3/uL (160-400); Red Blood Count 3.41 X10*6/uL (4.60-5.80); Red Cell Distribution Width 14.5 % (11.0-16.0); White Blood Count 6.4 X10*3/uL (4.8-10.8)
[2023-09-18 06:47] LABS: Alanine Aminotransferase 27 U/L (0-40); Albumin Level 3.8 g/dL (3.5-5.0); Alkaline Phosphatase 140 U/L (39-117); Anion Gap 11 (12-20); Aspartate Amino Transferase 35 U/L (5-37); Bilirubin Direct 0.3 mg/dL (0.0-0.5); Bilirubin Total 0.6 mg/dL (0.0-1.0); Blood Urea Nitrogen 7 mg/dL (9-16); Calcium 8.9 mg/dL (8.4-10.2); Carbon Dioxide 25 mmol/L (22-29); Chloride 106 mmol/L (96-108); Creatinine Clr Calc Pharmacy 98.6; Estimated Glomerular Filt Rate > 60; Glucose Random 173 mg/dL (60-115); Potassium 3.7 mmol/L (3.3-5.1); Sodium 138 mmol/L (135-145); Total Protein 6.7 g/dL (6.5-8.0)
[2023-09-18 06:55] LABS: INTERNATIONAL NORM RATIO 6.6 (0.9-1.1)
[2023-09-18 07:28] LABS: Glucose, Whole Blood 197 mg/dL (60-115)
[2023-09-18] MEDS: Fluticasone/Vilanterol 200/25 BLST.W.DEV 1 PUFF INHALE (07:58)
[2023-09-18] MEDS: 0.9 % Sodium Chloride Flush 3 ML SYRINGE IVFLUSH ×2 (08:02→16:37)
[2023-09-18 11:58] LABS: Glucose, Whole Blood 163 mg/dL (60-115)
--- NOTE | 2023-09-18 13:37 | HO.PM.IMPN ---
Subjective Subjective Date of Service: 09/18/23 Interval History: seen and evaluated this morning no more episodes of hypoglycemia INR decreased to 6.6 Diarrhea resolved concerns about his balance, risk of fall no fever or chills Review of Systems Review of Systems: Yes all other systems are reviewed and are negative Physical Exam Vital Signs: Vital Signs: Last Vital Signs Temp 97.9 F 09/18/23 07:14 Pulse 69 09/18/23 07:59 Resp 18 09/18/23 07:59 BP 152/71 H 09/18/23 07:14 Pulse Ox 97 09/18/23 07:14 O2 Del Method Room Air 09/18/23 07:14 BMI result Body Mass Index 41.4 Const: Other: Constitutional : Awake, interactive, obese, not in distress Neck : Normal inspection, Supple Cardiovascular : RRR, no JVP, no lower extremity edema, metallic click Respiratory : good bilateral air entry, no crackles, wheezes Gastrointestinal: soft, lax, Normal bowel sounds, no tenderness Skin : Warm, Dry Neurological : Alert & oriented x3, No focal deficit Objective Data Active Medications Acetaminophen (Acetaminophen 325 Mg Tablet) 650 mg PO Q6H PRN PRN Reason: Pain, Mild (Pain Scale 1-3) Albuterol Sulfate (Albuterol Sulfate (0.083%) 2.5 Mg/3 Ml Vial.Neb) 2.5 mg INHALE Q4H PRN PRN Reason: Shortness of Breath/Wheezing Fluticasone/Vilanterol (Fluticasone/Vilanterol 200/25 Blst.W.Dev) 1 puff INHALE RDAILY [facility] Last Admin: 09/18/23 07:58 Dose: 1 puff Documented By: DEEPTI Dextrose (D10) 250 mls @ 750 mls/hr IV Q15M PRN PRN Reason: per Hypoglycemia Standing Ord. Last Infusion: 09/16/23 12:01 Dose: Infused Documented By: NATALIO Azithromycin 500 mg/ Sodium (Chloride) 250 mls @ 125 mls/hr IV Q24H [facility] Last Infusion: 09/16/23 18:05 Dose: Infused Documented By: GELY Ondansetron HCl (Ondansetron Hcl 4 Mg/2 Ml Vial) 4 mg IVPUSH Q8H PRN PRN Reason: Nausea and Vomiting Last Admin: 09/16/23 16:13 Dose: 4 mg Documented By: KARLY Pantoprazole Sodium (Pantoprazole Sodium 40 Mg/10 Ml Vial) 40 mg IVPUSH BID@0630,1630 [facility] Last Admin: 09/18/23 05:21 Dose: 40 mg Documented By: LA Sodium Chloride (0.9 % Sodium Chloride Flush 3 Ml Syringe) 3 ml IVFLUSH QSHIFT [facility] Last Admin: 09/18/23 08:02 Dose: 3 ml Documented By: JEREMI Labs 09/18/23 05:43 09/18/23 05:43 Labs: Laboratory Results - last 24 hr 09/17/23 09/17/23 09/18/23 15:48 21:06 00:11 MCV MCH MCHC RDW Plt Count MPV Absolute Nucleated RBC Nucleated RBC % (auto) PT INR Anion Gap Estim Creat Clear Calc Estimated GFR POC Glucose 175 H 144 H 160 H Random Glucose Calcium Total Bilirubin Direct Bilirubin AST ALT Alkaline Phosphatase Total Protein Albumin 09/18/23 09/18/23 09/18/23 04:17 05:43 07:23 MCV 96.5 MCH 33.4 H MCHC 34.7 RDW 14.5 Plt Count 159 L MPV 10.4 Absolute Nucleated RBC 0.000 Nucleated RBC % (auto) 0.0 PT 80.0 H D INR 6.6 H* D Anion Gap 11 L Estim Creat Clear Calc 98.6 Estimated GFR > 60 POC Glucose 157 H 197 H Random Glucose 173 H Calcium 8.9 D Total Bilirubin 0.6 Direct Bilirubin 0.3 AST 35 ALT 27 Alkaline Phosphatase 140 H Total Protein 6.7 Albumin 3.8 09/18/23 11:55 MCV MCH MCHC RDW Plt Count MPV Absolute Nucleated RBC Nucleated RBC % (auto) PT INR Anion Gap Estim Creat Clear Calc Estimated GFR POC Glucose 163 H Random Glucose Calcium Total Bilirubin Direct Bilirubin AST ALT Alkaline Phosphatase Total Protein Albumin Assessment and Plan (1) Supratherapeutic INR: Status: Acute (2) Enteropathogenic Escherichia coli infection: Status: Acute (3) Hypoglycemia: Status: Acute (4) Physical deconditioning: Status: Acute Plan A 73 years old patient with PMH of COPD, Asthma, AVR on Warfarin among others who presents to the hospital with severe hypoglycemia and recurrent diarrhea Acute hypoglycemia 2/2 Type II DM medications Likely related to acute infx w Noro virus (pending confirmation)\EPEC resolved Hold Lantus and Glipizide DC D10 POC Q4 regular diet for now Monitor POC while off fluids Physical deconditioning PT eval Intractable diarrhea 2/2 EPEC and Noro virus infection resolved dc IVF Hold Azithromycin today Hold on Lomotil for now Hx AVR w Subratherapeutic INR INR of 6.6 with no evidence of bleeding Hold Warfarin, hold on Vit K INR daily HTN Hold Losartan, Metoprolol COPD PRN Albuterol Home inhalors DVT PPx Warfarin The patient will likely need overnight hospital stay for monitoring hypoglycemia , Elevated INR and bleeding with monitoring Glucose levels off IV fluids pending clinical improvement and PT evaluation. Quality Stroke Does the patient have a stroke diagnosis?: No VTE Prior VTE?: No VTE Risk Level:: Medical - moderate - high VTE Device Contraindication: Treatment Not Indicated VTE Drug Contraindication: N/A - Med Ordered
[2023-09-18 16:08] LABS: Glucose, Whole Blood 143 mg/dL (60-115)
[2023-09-18 20:01] LABS: Glucose, Whole Blood 166 mg/dL (60-115)
[2023-09-18] MEDS: Haloperidol Lactate 5 MG/ML VIAL IM (22:07)
--- NOTE | 2023-09-19 00:01 | PC.NURSE ---
Addendum entered by Michael Brink RN 09/19/23 01:55: around 0100, pt restlessness subsided. lying in bed in semi fowlers position, eyes closed, and even, unlabored respirations observed at a rate of 16 breaths/min. no signs of distress seen. call mejia in reach. plan of care ongoing Original Note: pt alert and oriented to self and place. hx dementia. restless climbing out of bed often, pulled out IV catheter, repeatedly pulls off telemtry monitor wires. requires frequent redirection. confused and forgetful. asking about what time his brother is picking him up over and over despite consistent reorientation. camera in place. bed alarm on. all fall risk precautions in place. pt denies pain. vitals stable. haloperidol given once around 2044 without effect at this time of writing note. 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 call mejia in reach. plan of care ongoing.
[2023-09-19 00:07] LABS: Glucose, Whole Blood 155 mg/dL (60-115)
[2023-09-19 04:00] VITALS: BP 130/60; PULSE 60; RESP 20; TEMP 36.5; O2SAT 95
[2023-09-19 04:10] LABS: Glucose, Whole Blood 134 mg/dL (60-115)
[2023-09-19] MEDS: Pantoprazole Sodium 40 MG/10 ML VIAL IVPUSH (06:43)
[2023-09-19 07:04] LABS: INTERNATIONAL NORM RATIO 3.1 (0.9-1.1); Prothrombin Time 37.9 SEC (11.1-13.3)
[2023-09-19 07:14] LABS: Anion Gap 15 (12-20); Blood Urea Nitrogen 9 mg/dL (9-16); Calcium 9.2 mg/dL (8.4-10.2); Carbon Dioxide 24 mmol/L (22-29); Chloride 104 mmol/L (96-108); Creatinine Clr Calc Pharmacy 98.6; Estimated Glomerular Filt Rate > 60; Glucose Random 155 mg/dL (60-115); Potassium 3.4 mmol/L (3.3-5.1); Sodium 140 mmol/L (135-145)
[2023-09-19] MEDS: Fluticasone/Vilanterol 200/25 BLST.W.DEV 1 PUFF INHALE (07:42)
[2023-09-19 07:44] VITALS: PULSE 64; RESP 18; O2SAT 95
[2023-09-19 08:00] VITALS: BP 153/71; PULSE 60; RESP 20; TEMP 36.6; O2SAT 94
[2023-09-19 08:24] LABS: Glucose, Whole Blood 156 mg/dL (60-115)
[2023-09-19] MEDS: 0.9 % Sodium Chloride Flush 3 ML SYRINGE IVFLUSH (08:56)
--- NOTE | 2023-09-19 10:13 | MHC.CM.PN ---
Per ROUNDS discussion, Patient is medically cleared for dc to home today, with services. A referral was made to [facility], who has been made aware of today's dc.
--- NOTE | 2023-09-19 11:07 | P.DS_ITS ---
DS: Providers Provider Date of Service: 09/19/23 Date of admission: 09/16/23 15:00 Primary care physician: Jaden Nicole MD DS: Diagnosis Discharge Diagnosis (1) Supratherapeutic INR: Status: Acute (2) Enteropathogenic Escherichia coli infection: Status: Acute (3) Hypoglycemia: Status: Acute (4) Physical deconditioning: Status: Acute (5) Enterocolitis: Status: Acute (6) Diarrhea: Status: Acute DS: Summary Hospital Course Hospital Course: Admission note HPI A 73 years old patient with PMH of COPD, Asthma, AVR on Warfarin among others who presents to the hospital with severe hypoglycemia and recurrent diarrhea. He was doing fairly ok until yesterday when his sugar readings were on the lower end most of the day and not eating much. he received his dose of Lantus at bedtime after that and was found altered with low BS of 25 or so. EMS was called and he was brought to the hospital. He takes Glipizide and Lantus at home. He started having episodse of watery diarrhea with no reported pain, fever or chills. denies eating outside or having any sick contacts. Found positive EPEC in stool. Admitted for further eval and treatment. Hospital course # Acute hypoglycemia secondary to Type II DM medications Likely related to acute infx with EPEC. held Lantus and Glipizide and started on IVF of D10 with fair response as no recurrence of hypoglycemia events. tolerated regular diet. IVF discontinued and he was monitor overnight with no recurrence. HbA1c of 6.3. he was asked to Hold Glipizide on discharge and continue only with lantus for the next week. Noted to have Physical deconditioning and [facility]NA will follow with him at home for physical therapy. # Intractable diarrhea secondary to EPEC resolved as he received IV Azithromycin and IV fluids with good response as diarrhea resolved. # Hx AVR w Subratherapeutic INR INR of 11 on admission trended down to 6.6 with no evidence of bleeding. Warfarin was held. INR trended down to 3.1 on the day of discharge. Discharge plan Hold Glipizide for next week. monitor blood sugar readings and report them to PCP restart Lantus Restart Warfarin today at 5 mg only PHysical therapy at home Time Attestation Discharge Coordination Time (in mins): 35 Quality: Safe Use of Opioids Does Pt have an Active Cancer Diagnosis on the Problem List?: No Quality: Stroke Does the patient have a stroke diagnosis?: No Physical Exam Vital Signs: Vital Signs: Last Vital Signs Temp 97.9 F 09/19/23 08:00 Pulse 60 09/19/23 08:00 Resp 20 09/19/23 08:00 BP 153/71 H 09/19/23 08:00 Pulse Ox 94 09/19/23 08:00 O2 Del Method Room Air 09/19/23 08:00 BMI result Body Mass Index 41.4 Const: Other: Constitutional : Awake, interactive, obese, not in distress Neck : Normal inspection, Supple Cardiovascular : RRR, no JVP, no lower extremity edema, metallic click Respiratory : good bilateral air entry, no crackles, wheezes Gastrointestinal: soft, lax, Normal bowel sounds, no tenderness Skin : Warm, Dry Neurological : Alert & oriented x3, No focal deficit DS: Data Data Completed and Pending Labs on day of discharge: Laboratory Results - last 24 hr 09/18/23 09/18/23 09/18/23 11:55 16:05 19:58 PT INR Sodium Potassium Chloride Carbon Dioxide Anion Gap BUN Creatinine Estim Creat Clear Calc Estimated GFR POC Glucose 163 H 143 H 166 H Random Glucose Calcium 09/19/23 09/19/23 09/19/23 00:01 04:04 06:25 PT 37.9 H D INR 3.1 H D Sodium 140 Potassium 3.4 Chloride 104 Carbon Dioxide 24 Anion Gap 15 BUN 9 Creatinine 0.88 Estim Creat Clear Calc 98.6 Estimated GFR > 60 POC Glucose 155 H 134 H Random Glucose 155 H Calcium 9.2 09/19/23 08:18 PT INR Sodium Potassium Chloride Carbon Dioxide Anion Gap BUN Creatinine Estim Creat Clear Calc Estimated GFR POC Glucose 156 H Random Glucose Calcium Imaging Chest x-ray: Radiologist's impression: ITS Impressions Abdomen/Pelvis CT 09/16/23 11:52 IMPRESSION: Fluid and gaseous distention of small and large bowel loops. Gastric distention. No focal point of transition. No focal bowel wall thickening. This may represent enterocolitis. Infectious and inflammatory etiologies should be considered. Cholelithiasis. Discharge Plan Discharge Anticipated Discharge Date/Time: 09/19/23 10:44 Patient Disposition: Home Health Service Discharge Diagnosis: Hypoglycemia Elevated INR Infectious diarrhea Referrals: Khushi MARKHAM [Outside] - 1 Week Jaden Nicole MD [Primary Care Provider] - 1 Week Discharge Medications: Continued albuterol sulfate [Ventolin HFA] 90 mcg/actuation HFA aerosol inhaler 2 puff inhalation Q4-6H PRN (Reason: for wheezing) Qty: 18 2RF acetaminophen 500 mg Tablet 1,000 mg PO DAILY PRN (Reason: Pain) warfarin 5 mg tablet 5 mg PO SUTUWETHFRSA Protocol: Dose Management Condition: Tuesday (Week One) Dose/Route: 5 mg Instruction: 1 x 5 mg tablet Condition: Tuesday Dose/Route: 7.5 mg Instruction: 1.5 x 5 mg tablets Condition: Tuesday Dose/Route: 5 mg Instruction: 1 x 5 mg tablet Condition: Tuesday Dose/Route: 5 mg Instruction: 1 x 5 mg tablet Condition: Dose/Route: 5 mg Instruction: 1 x 5 mg tablet Condition: Tuesday Dose/Route: 5 mg Instruction: 1 x 5 mg tablet Condition: Tuesday Dose/Route: 5 mg Instruction: 1 x 5 mg tablet Condition: Tuesday (Week Two) Dose/Route: 5 mg Instruction: 1 x 5 mg tablet Condition: Tuesday Dose/Route: 7.5 mg Instruction: 1.5 x 5 mg tablets Condition: Tuesday Dose/Route: 5 mg Instruction: 1 x 5 mg tablet Condition: Tuesday Dose/Route: 5 mg Instruction: 1 x 5 mg tablet Condition: Dose/Route: 5 mg Instruction: 1 x 5 mg tablet Condition: Tuesday Dose/Route: 5 mg Instruction: 1 x 5 mg tablet Condition: Tuesday Dose/Route: 5 mg Instruction: 1 x 5 mg tablet Protocol Text: Adjustment Start Date: Tuesday08/29/23 INR Value: Pending INR Date: 08/29/23 Additional Instructions: REVIEW FOOD LIST WEEKLY, EAT A MIX OF FRUITS AND VEGETABLES, MAYBE NO GREENS TODAY montelukast 10 mg tablet 10 mg PO DAILY@193 metoprolol tartrate 25 mg tablet 25 mg PO BID atorvastatin 20 mg tablet 20 mg PO DAILY@193 insulin glargine 100 unit/mL (3 mL) insulin pen 10 unit subcut DAILY@1830 (DME) pen needle, diabetic [BD Ultra-Fine Short Pen Needle] 31 gauge x 5/16 needle See Rx Instructions subcut DAILY Qty: 1200 Rx Instructions: As directed silver sulfadiazine 1 % cream 1 appl topical DAILY PRN (Reason: wounds) lisinopril 5 mg tablet 5 mg PO DAILY@0815 furosemide 20 mg tablet 20 mg PO DAILY PRN (Reason: Edema) fluticasone propion-salmeterol [Wixela Inhub] 500-50 mcg/dose blister with device 1 inh inhalation BID sertraline [Zoloft] 25 mg tablet 25 mg PO DAILY@0730 Patient Comments: started 06/30/23 Held warfarin 5 mg tablet 7.5 mg PO MO Hold Instructions: restart next Tuesday glipizide 10 mg tablet extended release 24hr 10 mg PO DAILY@0815 Hold Instructions: Monitor blood sugar readings for next week without using Glipizide Discharge Orders: Discharge Order (Routine); Ordered 09/19/23 Ordered By: Jay Mendieta Diet: Diabetic diet Activity on Discharge: As tolerated Stand Alone Forms: Patient Portal Discharge page Print Language: Bruneian Care Plan Goals: You were admitted for evaluation of low blood sugar and diarrhea. you were found to have intestinal bug infection causing diarrhea called E.Coli. treated with IV antibiotics and fluids with good response as diarrhea resolved. Your blood sugar responded to IV fluids with no more episodes of low blood sugar. INR was found to be elevated and trended down with holding Warfarin. Hold Glipizide for next week. monitor blood sugar readings and report them to PCP restart Lantus Restart Warfarin today at 5 mg only PHysical therapy at home Health Concerns: Read below Plan of Treatment: Read below Assessment: Read below Discharge Date/Time: 09/19/23 13:58
[2023-09-19 11:22] LABS: Glucose, Whole Blood 192 mg/dL (60-115)
[2023-09-19 11:25] LABS: Estimated Average Glucose 134 mg/dL; Hemoglobin A1c % 6.3 % (<6.0)
--- NOTE | 2023-09-19 12:15 | P.F2F_ITS ---
Service Date Service Date: 09/19/23 Encounter Date of encounter: 09/19/23 Reasons for Services Signs and symptoms assessed: Physical deconditioning Elevated INR Reason for halfway: monitoring of unstable blood sugar, monitoring of PT/INR and teach disease management Reason for physical therapy: home safety and mobility and therapeutic exercises Homebound: Leaving the home is medically contraindicated at this time without the asist of a device and/or another person due th the listed conditions above and below. Reason homebound: unsteady gait / fall risk Certification: Based on the above findings, I certify that this patient is confined to the home and needs intermittent halfway care, physical therapy and/or speech therapy, or continues to need occupational therapy. The patient is under my care, and I have initiated the establishment of the plan of care. The patient will be followed by a physician who will periodically review the plan of care. Time Spent With Patient Time: Total time managing care of this patient today ____ minutes.
[2023-09-19] MEDS: Metoprolol Tartrate 25 MG TABLET PO (12:19)
[2023-09-19 12:29] VITALS: BP 131/68; PULSE 60; RESP 20; TEMP 36.3; O2SAT 96
[2023-09-20 07:36] LABS: Norovirus Stool PCR DETECTED
== END 2023-09-19 13:58 | disposition home health service (06) | DRG 373 ==
LOC: HO.ED 12:40 → HO.EDOVER 15:21 → HO.IMC 15:32
PROVIDERS: Emergency Medicine; Admitting Provider Student in an Organized Health Care Education/Training Program; Emergency Provider Emergency Medicine Emergency Medical Services; PCP Internal Medicine; Visit Provider Student in an Organized Health Care Education/Training Program
DX: A04.0 Enteropathogenic Escherichia coli infection (principal); E11.649 Type 2 diabetes mellitus with hypoglycemia without coma; R79.1 Abnormal coagulation profile; J44.9 Chronic obstructive pulmonary disease, unspecified; Z87.891 Personal history of nicotine dependence; Z95.2 Presence of prosthetic heart valve; Z79.4 Long term (current) use of insulin; Z79.01 Long term (current) use of anticoagulants; Z79.51 Long term (current) use of inhaled steroids; Z79.85 Long-term (current) use of injectable non-insulin antidiabetic drugs; Z79.899 Other long term (current) drug therapy
CPT/HCPCS: 36415; 74177; 80048; 80076; 81001; 82947; 83036; 85025; 85027; 85610; 87493; 87507; 94640; 99285; C9113; J0456; J1610; J1630; J2405; Q9967

== ENCOUNTER → 2023-09-16 02:28 | Outpatient (BNV) | payer MEDICARE, SELFPAY | PROVIDERS: Emergency Provider Emergency Medicine Emergency Medical Services; PCP Internal Medicine; Visit Provider Internal Medicine | DX: R79.1 Abnormal coagulation profile (principal); A04.0 Enteropathogenic Escherichia coli infection; E11.649 Type 2 diabetes mellitus with hypoglycemia without coma; R53.81 Other malaise; A09 Infectious gastroenteritis and colitis, unspecified | CPT/HCPCS: 99223; 99233; 99239; 99499; G0180 ==

== ENCOUNTER → 2023-09-20 09:45 | Outpatient (BNVA) | payer MEDICARE, SELFPAY | PROVIDERS: PCP Internal Medicine; Visit Provider Internal Medicine ==

== ENCOUNTER → 2023-09-23 11:35 | Outpatient (BNVA) | payer MEDICARE, SELFPAY | PROVIDERS: PCP Internal Medicine; Visit Provider Internal Medicine ==

== ENCOUNTER → 2023-09-30 09:03 | Outpatient (BNVA) | payer MEDICARE, SELFPAY | PROVIDERS: PCP Internal Medicine; Visit Provider Internal Medicine ==

== ENCOUNTER → 2023-10-07 10:17 | Outpatient (BNVA) | payer MEDICARE, SELFPAY | PROVIDERS: PCP Internal Medicine; Visit Provider Internal Medicine ==

== ENCOUNTER 2023-10-11 10:01 | Outpatient (AMB) | payer MEDICARE, SELFPAY ==
--- NOTE | 2023-10-11 10:18 | MHC.OFFVIS ---
Vital Signs 10/11/23 10:19 Height 5 ft 10 in Weight 267 lb 13.786 oz BMI 38.4 BP 118/64 Blood Pressure Location Lt brachial Position Sitting Pulse 60 Pulse Source Pulse Oximeter Pulse Oximetry (%) 96 Oxygen Delivery Method Room Air Intake Visit Reasons: Asthma Intake Note: pt is here for follow up and states lewis is doing very well, but still taking his voice away. recently dx in June with Dementia by Dr. Hidalgo. Reading Interventionist Required: No Allergies metformin Adverse Reaction (Intermediate, Verified 10/11/23 10:48) Stomach Upset Medication List - Last Reconciled 10/11/23 by Allyson Maradiaga MD acetaminophen 1,000 mg PO DAILY PRN albuterol sulfate 90 mcg/actuation (Ventolin HFA) 2 puffs inhalation Q4-6H PRN atorvastatin 20 mg PO DAILY@1930 fluticasone propion-salmeterol 500-50 mcg/dose (Wixela Inhub) 1 inh inhalation BID furosemide 20 mg PO DAILY PRN glipizide ER 10 mg PO DAILY@0815 insulin glargine 10 units subcut DAILY@1830 lisinopril 5 mg PO DAILY@0815 metoprolol tartrate 25 mg PO BID montelukast 10 mg PO BEDTIME pen needle, diabetic (BD Ultra-Fine Short Pen Needle) As directed sertraline (Zoloft) 25 mg PO DAILY@0730 silver sulfadiazine 1% 1 appl topical DAILY PRN warfarin 5 mg See Protocol PO SUTUWETHFRSA warfarin 7.5 mg See Protocol PO MO Do you need a note to return to daycare/school/sports/work: No HPI HPI Asthma: Details: Manuel is 73 years old very pleasant gentleman, Comes for follow-up for his asthma/COPD, associated with eosinophilia and hyper IgE level. He is doing very well with his current regimen. He does get short of breath when he walks around and has occasional cough/wheezing at rest. But overall his condition has been well controlled. He has had no acute infection or acute exacerbation. He is grossly obese but has not had any symptoms of obstructive sleep apnea. He has chronic stasis edema of the lower extremities which remains stable. [facility] Medical History Cough Asthma-COPD overlap syndrome Steroid dependence COPD (chronic obstructive pulmonary disease) Eosinophilic asthma Social History Household Members: Spouse Housing: House Do you presently have visiting nurse or other home services: No Patient Tobacco Use Status: Former Tobacco user service: No Review of Systems Const All systems reviewed & are unremarkable except as noted in HPI and below Eyes Reports no additional complaints ENT Reports nasal congestion (INTERMITTENT BOUTS OF NASAL CONGESTION AND POSTNASAL DRIP) Card Denies chest pain, Denies irregular heart rhythm, Reports leg edema and Reports other (HISTORY OF AORTIC VALVE REPLACEMENT) Resp Reports as per HPI GI Reports no additional complaints Reports no additional complaints Musc Reports no additional complaints Skin/Breast Reports system reviewed and no additional complaints, except as documented Neuro Reports no additional complaints Psych Reports no additional complaints Physical Exam Vital Signs: Last Vital Signs Pulse 60 10/11/23 10:19 BP 118/64 10/11/23 10:19 Pulse Ox 96 10/11/23 10:19 Oxygen Delivery Method Room Air 10/11/23 10:19 BMI result Body Mass Index 38.4 Const Other: HE IS GROSSLY OBESE WITH BMI OF 39.8 General: comfortable, no acute distress, alert and awake Orientation/consciousness: patient oriented x3 HEENT Head: Yes normal to inspection General nose exam: No nasal polyps present and No nasal discharge present Face and sinus: Yes sinuses nontender Mouth: oropharynx abnormals (NARROW AND CROWDED, MALLAMPATI CLASS 3) Throat: Yes posterior oropharynx normal Eyes General: appearance normal, both eyes and all related structures Neck Neck: Yes normal visual inspection, Yes no lymphadenopathy, Yes trachea midline and Yes no JVD Thyroid: Thyroid normal Chest Chest palpation & inspection: abnormal inspection of the chest (MIDSTERNAL SURGICAL SCAR ,HEALED), normal palpation of entire chest wall and no tenderness Resp Other: PERCUSSION NOTE IS NOT PERCEPTIBLE BECAUSE OF THICK CHEST WALL. BREATH SOUNDS ARE DISTANT . LUNGS ARE CLREAR TODAY , NO WHEEZES ARE HEARD . Cardio Palpation: normal PMI Rate: regular rate Rhythm: regular rhythm Heart sounds: Clicking heart sound present (HAS METALLIC SOUND), no gallops and no murmurs GI Palpation (GI): Soft to palpation, nontender, No hepatosplenomegaly present, no masses and Other GI palpation findings present (MODERATELY OBESE) Auscultation: normal bowel sounds Back/Spine/Pelvis Thoracic/Lumbar Spine: thoracic and lumbar spine normal to inspection and thoraco-lumbar ROM limited Skin General skin exam: no rashes or lesions noted Neuro General: patient oriented x3 and no focal motor deficits Cranial nerves: Yes CN's II-XII intact bilaterally Extrem General: Yes normal to inspection, Yes no clubbing, cyanosis or edema, Yes no calf tenderness and Yes venous stasis dermatitis (ON BOTH LEGS) Psych Appearance: grossly normal and well kempt Speech and movement: Normal speech and movement present Office Procedures Spirometry Testing Spirometry Comments: Spirometry done in the office, Dr. Maradiaga has the results results scanned to his chart. 05864- Spirometry Results Reviewed Results Reviewed: spirometry FVC=69 % FEV1= 70 % FEF 25-75 = 75 % C/W ONLY MILD RESTRICTIVE AND OBSTRUCTIVE DISORDER . [place] COMPARED TO THE RESULTS IN 2021 Assessment & Plan Assessment & Plan (1) Asthma-COPD overlap syndrome: Comment: HIS HISTORY AND FINDINGS OF PHYSICAL EXAMINATION ARE CONSISTENT WITH THE ASTHMA/COPD OVERLAP SYNDROME. HE RESPONDED TO STEROIDS WELL. BUT WE ARE TRYING TO KEEP HIM OFF THE SYSTEMIC STEROIDS. Code(s): J44.9 - Chronic obstructive pulmonary disease, unspecified Category: Medical Plan: CONTINUE CURRENT TX: WIXWLA 250-50 1 INH BID ALBUTEROL HFA 2 PUFFS Q 6 HRS PRN MONTELUKAST 10 MG PO DAILY (2) Steroid dependence: Comment: PER HISTORY HE RESPONDS TO PREDNISONE QUICKLY, HAS BEEN USING SHORT COURSES , VERY FREQUENTLY. ON HIS CURRENT REGIMEN HE HAS BEEN ABLE TO STAY OFF ORAL STEROIDS. Code(s): F19.20 - Other psychoactive substance dependence, uncomplicated Category: Medical Plan: DISCUSSED WITH HIM ABOUT BIOLOGIC AGENTS TREATMENT. HE WANTS TO STAY ON THE CURRENT MEDICATIONS FOR THE TIME BEING. (3) Eosinophilic asthma: Comment: HIS LAB TESTS IN THE PAST AND, CBC ON MULTIPLE TIMES SHOWS HIGH EIOSINOPHIL COUNT . HE HAS CHRONIC EOSINOPHILIC ASTHMA/COPD . ALSO HAS SLIGHTLY ELEVATED IGE . PRESENTLY HIS SYMPTOMS ARE WELL CONTROLLED WITH THE CURRENT REGIMEN . Code(s): J82.83 - Eosinophilic asthma Category: Medical Plan: CONTINUE ON THE CURRENT REGIMEN. THE DOSE OF WIXELA IS DECREASED TO 250-51 INHALATION B.I.D. Orders: Orders AMB Spirometry Testing Today J44.9 - Chronic obstructive pulmonary disease, unspecified Coding Level of Care Code Est Pt Level 3 (22149) Diagnoses Asthma-COPD overlap syndrome J44.9 Steroid dependence F19.20 Eosinophilic asthma J82.83 CPT Codes Spirometry - CPT: 84011- Spirometry ([id number])
[2023-10-11 10:19] VITALS: BP 118/64; PULSE 60; O2SAT 96; BMI 38.4
== END 2023-10-11 11:01 | disposition home or self-care (01) ==
PROVIDERS: PCP Internal Medicine; Visit Provider Internal Medicine
DX: J44.9 Chronic obstructive pulmonary disease, unspecified (principal); F19.20 Other psychoactive substance dependence, uncomplicated; J82.83 Eosinophilic asthma
CPT/HCPCS: 94010; 99213

== ENCOUNTER → 2023-10-11 10:01 | Outpatient (BNVA) | payer MEDICARE, SELFPAY | PROVIDERS: PCP Internal Medicine; Visit Provider Internal Medicine | DX: J82.83 Eosinophilic asthma (principal); J44.9 Chronic obstructive pulmonary disease, unspecified; Z79.52 Long term (current) use of systemic steroids | CPT/HCPCS: 94010; 99212 ==

== ENCOUNTER → 2023-10-14 09:18 | Outpatient (BNVA) | payer MEDICARE, SELFPAY | PROVIDERS: PCP Internal Medicine; Visit Provider Internal Medicine ==

== ENCOUNTER → 2023-10-26 10:37 | Outpatient (BNVA) | payer MEDICARE, SELFPAY | PROVIDERS: PCP Internal Medicine; Visit Provider Internal Medicine ==

== ENCOUNTER → 2023-11-02 08:43 | Outpatient (BNVA) | payer MEDICARE, SELFPAY | PROVIDERS: PCP Internal Medicine; Visit Provider Internal Medicine ==

== ENCOUNTER 2023-11-03 08:56 | Outpatient (REF) | payer MEDICARE, SELFPAY ==
[2023-11-03 10:50] LABS: MANUAL DIFF FLAG NO
[2023-11-03 10:55] LABS: Basophils Percent Auto 0.3 % (0-2); Eosinophils Absolute Auto 0.2 X10*3/uL (0.0-0.4); Eosinophils Percent Auto 2.6 % (0-4); Hematocrit 33.5 % (42.0-52.0); Hemoglobin 11.4 g/dl (14.0-18.0); Imm Gran Abs Auto 0.03 X10*3/uL (0.00-0.03); Imm Gran Pct Auto 0.4 % (0.0-0.4); Lymphocytes Absolute Auto 0.9 X10*3/uL (1.2-4.9); Lymphocytes Percent Auto 11.8 % (20-40); Mean Corpuscular Hemoglobin 33.5 pg (27.0-33.0); Mean Corpuscular Volume 98.5 fL (80.0-98.0); Mean Platelet Volume 10.5 fL (9.4-12.4); Monocytes Absolute Auto 0.7 X10*3/uL (0.1-1.2); Monocytes Percent Auto 8.4 % (2-11); Neutrophils Absolute Auto 5.9 x10*3/uL (2.0-8.3); Neutrophils Percent Auto 76.5 % (45-73); Platelet Count 152 X10*3/uL (160-400); Red Cell Distribution Width 14.6 % (11.0-16.0); White Blood Count 7.7 X10*3/uL (4.8-10.8)
[2023-11-03 11:00] LABS: Estimated Average Glucose 134 mg/dL; Hemoglobin A1c % 6.3 % (<6.0)
[2023-11-03 11:12] LABS: Alanine Aminotransferase 23 U/L (0-40); Alkaline Phosphatase 139 U/L (39-117); Anion Gap 14 (12-20); Aspartate Amino Transferase 24 U/L (5-37); Bilirubin Total 0.8 mg/dL (0.0-1.0); Blood Urea Nitrogen 21 mg/dL (9-16); Calcium 8.9 mg/dL (8.4-10.2); Carbon Dioxide 21 mmol/L (22-29); Chloride 108 mmol/L (96-108); Estimated Glomerular Filt Rate > 60; Glucose Random 113 mg/dL (60-115); Potassium 4.3 mmol/L (3.3-5.1); Sodium 139 mmol/L (135-145)
== END 2023-11-03 08:57 | disposition home or self-care (01) ==
LOC: HO.10HDL 08:56
PROVIDERS: Visit Provider Internal Medicine
DX: E11.9 Type 2 diabetes mellitus without complications (principal); I10 Essential (primary) hypertension; R60.9 Edema, unspecified
CPT/HCPCS: 36415; 80053; 83036; 85025

== ENCOUNTER → 2023-11-09 11:52 | Outpatient (BNVA) | payer MEDICARE, SELFPAY | PROVIDERS: PCP Internal Medicine; Visit Provider Internal Medicine ==

== ENCOUNTER → 2023-11-16 13:17 | Outpatient (BNVA) | payer MEDICARE, SELFPAY | PROVIDERS: PCP Internal Medicine; Visit Provider Internal Medicine ==

== ENCOUNTER 2023-11-28 09:16 | Outpatient (AMB) | payer MEDICARE, SELFPAY ==
[2023-11-28 09:47] LABS: Prothrombin Time Whole Bld POC 24.4 sec (11.1-13.5)
--- NOTE | 2023-11-28 09:47 | MHC.OFFVISCO ---
Intake Intake Visit Reasons: Anticoagulation Allergies metformin Adverse Reaction (Intermediate, Verified 11/28/23 09:54) Stomach Upset Medication List - Last Reconciled 11/28/23 by Sheri Toney RN acetaminophen 1,000 mg PO DAILY PRN albuterol sulfate 90 mcg/actuation (Ventolin HFA) 2 puffs inhalation Q4-6H PRN atorvastatin 20 mg PO DAILY@1930 fluticasone propion-salmeterol 250-50 mcg/dose (Wixela Inhub) 1 inh inhalation BID 30 days furosemide 20 mg PO DAILY PRN glipizide ER 5 mg PO DAILY@0815 insulin glargine 10 units subcut DAILY@1830 lisinopril 5 mg PO DAILY@0815 metoprolol tartrate 25 mg PO BID montelukast 10 mg PO BEDTIME pen needle, diabetic (BD Ultra-Fine Short Pen Needle) As directed sertraline (Zoloft) 25 mg PO DAILY@0730 silver sulfadiazine 1% 1 appl topical DAILY PRN warfarin See Protocol 5 mg orally 7.5mg x 1 day/ 5mg x 6 days; Nursing Note INR 2.0-?? out of therapeutic range of 2.5-3.5 Medications and supplements reviewed Patient status: no c.o Medications or supplements: wixela inhal reduced to 250mg, glipizide reduced to 5mg daily Diet: appetite is good Denies any signs and symptoms of bleeding or clotting or unusual bruising Bleeding, bruising, clotting discussed Nutritional guidance given: no greens for 2-3 days, eat reds to raise Dose: 10mg today then cont reg 5mg x 6, 7.5mg x 1 F/U INR Date : 1 week?? Patient verbalizing understanding of instructions given. pt to acs accompanied by pcp dr gonsalves's office called with low inr dosing and f/u appt. spoke to asa at 1000 Anti-Coag Initial Assessment Social Hx Patient Tobacco Use Status: Former Tobacco user Coding Level of Care Code Est Patient Level 1 Diagnoses Current use of anticoagulant therapy Z79.01 Assessment & Plan Assessment & Plan (1) Current use of anticoagulant therapy: Code(s): Z79.01 - snf (current) use of anticoagulants Category: Medical
== END 2023-11-28 10:01 | disposition home or self-care (01) ==
LOC: HO.ACS 09:17
PROVIDERS: PCP Internal Medicine; Visit Provider Internal Medicine
DX: Z79.01 Long term (current) use of anticoagulants (principal)

== ENCOUNTER → 2023-11-28 09:16 | Outpatient (BNVA) | payer MEDICARE, SELFPAY | PROVIDERS: PCP Internal Medicine; Visit Provider Internal Medicine | DX: Z95.2 Presence of prosthetic heart valve (principal); Z79.01 Long term (current) use of anticoagulants; Z51.81 Encounter for therapeutic drug level monitoring | CPT/HCPCS: 85610; 99211 ==

== ENCOUNTER 2023-12-05 09:20 | Outpatient (AMB) | payer MEDICARE, SELFPAY ==
[2023-12-05 09:29] LABS: Prothrombin Time Whole Bld POC 27.6 sec (11.1-13.5); ~PT, ~INR - Anti Coag Clinic 2.3 (0.9-1.1)
--- NOTE | 2023-12-05 09:40 | MHC.OFFVISCO ---
Intake Intake Visit Reasons: Anticoagulation Allergies metformin Adverse Reaction (Intermediate, Verified 12/05/23 09:22) Stomach Upset Medication List - Last Reconciled 12/05/23 by Lizzie Rouse, RN acetaminophen 1,000 mg PO DAILY PRN albuterol sulfate 90 mcg/actuation (Ventolin HFA) 2 puffs inhalation Q4-6H PRN atorvastatin 20 mg PO DAILY@1930 fluticasone propion-salmeterol 250-50 mcg/dose (Wixela Inhub) 1 inh inhalation BID 30 days furosemide 20 mg PO DAILY PRN glipizide ER 5 mg PO DAILY@0815 insulin glargine 10 units subcut DAILY@1830 lisinopril 5 mg PO DAILY@0815 metoprolol tartrate 25 mg PO BID montelukast 10 mg PO BEDTIME pen needle, diabetic (BD Ultra-Fine Short Pen Needle) As directed sertraline (Zoloft) 25 mg PO DAILY@0730 silver sulfadiazine 1% 1 appl topical DAILY PRN warfarin See Protocol 5 mg orally 7.5mg x 2 day/ 5mg x 5 days; Nursing Note INR 2.3? out of therapeutic range 2.5-3.5 Medications and supplements reviewed Patient status: Since pt d/c from [facility] services he has been more active and continues to perform exercises at home, it was explained that exercise is good for circulation to all areas of the body including the brain and for muscle tone, balance and coordination. Medications or supplements: no changes Diet: good Denies any signs and symptoms of bleeding or clotting or unusual bruising Bleeding, bruising, clotting discussed Nutritional guidance given: cont to eat a mix of fruits and vegetables Dose: 7.5mg x 2 days/ 5mg x 5 days F/U INR Date: 1 1/2 weeks to benefit of dose ?? Patient verbalizing understanding of instructions given. 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
== END 2023-12-05 09:44 | disposition home or self-care (01) ==
PROVIDERS: PCP Internal Medicine; Visit Provider Internal Medicine
DX: Z79.01 Long term (current) use of anticoagulants (principal)

== ENCOUNTER → 2023-12-05 09:20 | Outpatient (BNVA) | payer MEDICARE, SELFPAY | PROVIDERS: PCP Internal Medicine; Visit Provider Internal Medicine | DX: Z95.2 Presence of prosthetic heart valve (principal); Z79.01 Long term (current) use of anticoagulants; Z51.81 Encounter for therapeutic drug level monitoring | CPT/HCPCS: 85610; 99211 ==

== ENCOUNTER 2023-12-15 13:00 | Outpatient (AMB) | payer MEDICARE, SELFPAY ==
[2023-12-15 13:11] LABS: Prothrombin Time Whole Bld POC 31.8 sec (11.1-13.5); ~PT, ~INR - Anti Coag Clinic 2.6 (0.9-1.1)
--- NOTE | 2023-12-15 13:24 | MHC.OFFVISCO ---
Intake Intake Visit Reasons: Anticoagulation Allergies metformin Adverse Reaction (Intermediate, Verified 12/15/23 13:06) Stomach Upset Medication List - Last Reconciled 12/15/23 by Lizabeth Garcia, AROLDO acetaminophen 1,000 mg PO DAILY PRN albuterol sulfate 90 mcg/actuation (Ventolin HFA) 2 puffs inhalation Q4-6H PRN atorvastatin 20 mg PO DAILY@1930 fluticasone propion-salmeterol 250-50 mcg/dose (Wixela Inhub) 1 inh inhalation BID 30 days furosemide 20 mg PO DAILY PRN glipizide ER 5 mg PO DAILY@0815 insulin glargine 10 units subcut DAILY@1830 lisinopril 5 mg PO DAILY@0815 metoprolol tartrate 25 mg PO BID montelukast 10 mg PO BEDTIME pen needle, diabetic (BD Ultra-Fine Short Pen Needle) As directed sertraline (Zoloft) 25 mg PO DAILY@0730 silver sulfadiazine 1% 1 appl topical DAILY PRN warfarin See Protocol 5 mg orally 7.5mg x 2 day/ 5mg x 5 days; Nursing Note Pt to [facility] accompanied by . He is confused and looks to to answer all questions asked. INR: 2.6 in therapeutic range of 2.5-3.5 Pt has been low to borderline low for INR x several weeks Medications and supplements reviewed No changes in health, diet, medications, or supplements, Denies any signs and symptoms of bleeding or bruising or clotting. 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
== END 2023-12-15 13:33 | disposition home or self-care (01) ==
LOC: HO.ACS 13:00
PROVIDERS: PCP Internal Medicine; Visit Provider Internal Medicine
DX: Z79.01 Long term (current) use of anticoagulants (principal)

== ENCOUNTER → 2023-12-15 13:00 | Outpatient (BNVA) | payer MEDICARE, SELFPAY | PROVIDERS: PCP Internal Medicine; Visit Provider Internal Medicine | DX: Z95.2 Presence of prosthetic heart valve (principal); Z79.01 Long term (current) use of anticoagulants; Z51.81 Encounter for therapeutic drug level monitoring | CPT/HCPCS: 85610; 99211 ==

== ENCOUNTER 2023-12-26 10:09 | Outpatient (AMB) | payer MEDICARE, SELFPAY ==
[2023-12-26 10:19] LABS: Prothrombin Time Whole Bld POC 37.9 sec (11.1-13.5); ~PT, ~INR - Anti Coag Clinic 3.2 (0.9-1.1)
--- NOTE | 2023-12-26 10:28 | MHC.OFFVISCO ---
Intake Intake Visit Reasons: Anticoagulation Allergies metformin Adverse Reaction (Intermediate, Verified 12/26/23 10:11) Stomach Upset Medication List - Last Reconciled 12/26/23 by Lizzie Rouse RN acetaminophen 1,000 mg PO DAILY PRN albuterol sulfate 90 mcg/actuation (Ventolin HFA) 2 puffs inhalation Q4-6H PRN atorvastatin 20 mg PO DAILY@1930 fluticasone propion-salmeterol 250-50 mcg/dose (Wixela Inhub) 1 inh inhalation BID 30 days furosemide 20 mg PO DAILY PRN glipizide ER 5 mg PO DAILY@0815 insulin glargine 10 units subcut DAILY@1830 lisinopril 5 mg PO DAILY@0815 metoprolol tartrate 25 mg PO BID montelukast 10 mg PO BEDTIME pen needle, diabetic (BD Ultra-Fine Short Pen Needle) As directed sertraline (Zoloft) 25 mg PO DAILY@0730 silver sulfadiazine 1% 1 appl topical DAILY PRN warfarin See Protocol 5 mg orally 7.5mg x 2 day/ 5mg x 5 days; Nursing Note INR: 3.2 in therapeutic range Medications and supplements reviewed No changes in health, diet, medications, or supplements, Denies any signs and symptoms of bleeding or bruising or clotting. Bleeding, bruising, clotting discussed Nutritional guidance given - remember cooked greens lower your INR more than raw- keep up weekly greens they are good for your INR , brain, blood sugars, your eyes and bones Dose: 7.5MG X 2 DAYS/ 5MG X 5 DAYS F/U INR: 3 WEEK Patient verbalizes understanding of instructions given Anti-Coag Initial Assessment Social Hx Patient Tobacco Use Status: Former Tobacco user Coding Level of Care Code Est Patient Level 1 Diagnoses Current use of anticoagulant therapy Z79.01 Assessment & Plan Assessment & Plan (1) Current use of anticoagulant therapy: Code(s): Z79.01 - [facility] (current) use of anticoagulants Category: Medical
== END 2023-12-26 10:30 | disposition home or self-care (01) ==
LOC: HO.ACS 10:09
PROVIDERS: PCP Internal Medicine; Visit Provider Internal Medicine
DX: Z79.01 Long term (current) use of anticoagulants (principal)

== ENCOUNTER → 2023-12-26 10:09 | Outpatient (BNVA) | payer MEDICARE, SELFPAY | PROVIDERS: PCP Internal Medicine; Visit Provider Internal Medicine | DX: Z95.2 Presence of prosthetic heart valve (principal); Z79.01 Long term (current) use of anticoagulants; Z51.81 Encounter for therapeutic drug level monitoring | CPT/HCPCS: 85610; 99211 ==

== ENCOUNTER 2024-01-16 09:23 | Outpatient (AMB) | payer MEDICARE, SELFPAY ==
--- NOTE | 2024-01-16 09:37 | MHC.OFFVISCO ---
Intake Intake Visit Reasons: Anticoagulation Allergies metformin Adverse Reaction (Intermediate, Verified 01/16/24 09:26) Stomach Upset Medication List - Last Reconciled 01/16/24 by Lizabeth Garcia RN acetaminophen 1,000 mg PO DAILY PRN albuterol sulfate 90 mcg/actuation (Ventolin HFA) 2 puffs inhalation Q4-6H PRN atorvastatin 20 mg PO DAILY@1930 fluticasone propion-salmeterol 250-50 mcg/dose (Wixela Inhub) 1 inh inhalation BID 30 days furosemide 20 mg PO DAILY PRN glipizide ER 5 mg PO DAILY@0815 insulin glargine 10 units subcut DAILY@1830 lisinopril 5 mg PO DAILY@0815 metoprolol tartrate 25 mg PO BID montelukast 10 mg PO BEDTIME pen needle, diabetic (BD Ultra-Fine Short Pen Needle) As directed sertraline (Zoloft) 25 mg PO DAILY@0730 silver sulfadiazine 1% 1 appl topical DAILY PRN warfarin See Protocol 5 mg orally 7.5mg x 2 day/ 5mg x 5 days; Nursing Note Pt to [facility] accompanied by . manages pt's medications and she balances his diet. INR: 2.9 in therapeutic range of 2.5-3.5 Medications and supplements reviewed No changes in health, diet, medications, or supplements, Denies any signs and symptoms of bleeding or bruising or clotting. Bleeding, bruising, clotting discussed Nutritional guidance given Dose: continue usual dose of 5mg X 5 days and 7.5mg X 2 days F/U INR: 3 weeks Patient verbalizes understanding of instructions given Anti-Coag Initial Assessment Social Hx Patient Tobacco Use Status: Former Tobacco user Coding Level of Care Code Est Patient Level 1 Diagnoses Current use of anticoagulant therapy Z79.01 Results AMB INR Fingerstick AMB INR Fingerstick 2.9 Last Edit by Lizabeth Garcia RN on 01/16/24 09:33 interface delay Assessment & Plan Assessment & Plan (1) Current use of anticoagulant therapy: Code(s): Z79.01 - long-term (current) use of anticoagulants Category: Medical
[2024-01-16 09:38] LABS: Prothrombin Time Whole Bld POC 34.3 sec (11.1-13.5); ~PT, ~INR - Anti Coag Clinic 2.9 (0.9-1.1)
== END 2024-01-16 09:40 | disposition home or self-care (01) ==
LOC: HO.ACS 09:23
PROVIDERS: PCP Internal Medicine; Visit Provider Internal Medicine
DX: Z79.01 Long term (current) use of anticoagulants (principal)

== ENCOUNTER → 2024-01-16 09:23 | Outpatient (BNVA) | payer MEDICARE, SELFPAY | PROVIDERS: PCP Internal Medicine; Visit Provider Internal Medicine | DX: Z95.2 Presence of prosthetic heart valve (principal); Z79.01 Long term (current) use of anticoagulants; Z51.81 Encounter for therapeutic drug level monitoring | CPT/HCPCS: 85610; 99211 ==

== ENCOUNTER 2024-02-06 09:33 | Outpatient (AMB) | payer MEDICARE, SELFPAY ==
[2024-02-06 09:59] LABS: Prothrombin Time Whole Bld POC 42.4 sec (11.1-13.5); ~PT, ~INR - Anti Coag Clinic 3.5 (0.9-1.1)
--- NOTE | 2024-02-06 10:07 | MHC.OFFVISCO ---
Intake Intake Visit Reasons: Anticoagulation Allergies metformin Adverse Reaction (Intermediate, Verified 02/06/24 09:50) Stomach Upset Medication List - Last Reconciled 02/06/24 by Lizzie Rouse RN acetaminophen 1,000 mg PO DAILY PRN albuterol sulfate 90 mcg/actuation (Ventolin HFA) 2 puffs inhalation Q4-6H PRN atorvastatin 20 mg PO DAILY@1930 fluticasone propion-salmeterol 250-50 mcg/dose (Wixela Inhub) 1 inh inhalation BID 30 days furosemide 20 mg PO DAILY PRN glipizide ER 5 mg PO DAILY@0815 insulin glargine 10 units subcut DAILY@1830 lisinopril 5 mg PO DAILY@0815 metoprolol tartrate 25 mg PO BID montelukast 10 mg PO BEDTIME pen needle, diabetic (BD Ultra-Fine Short Pen Needle) As directed quetiapine 25 mg PO BEDTIME sertraline (Zoloft) 25 mg PO DAILY@0730 silver sulfadiazine 1% 1 appl topical DAILY PRN warfarin See Protocol 5 mg orally 7.5mg x 2 day/ 5mg x 5 days; Nursing Note INR: 3.5 in therapeutic range 2.5-3.5 Medications and supplements reviewed No changes in health, diet, medications, or supplements, Denies any signs and symptoms of bleeding or bruising or clotting. Bleeding, bruising, clotting discussed Nutritional guidance given - KEEP UP WEEKLY GREENS BUT DO NOT OVER COMPENSATE YOUR WARFARIN DOSE IS BEING DECREASED Dose: DECREASE TO 7.5MG X 1 DAY/ 5MG X 6 DAYS F/U INR: 2 WEEKS Patient verbalizes understanding of instructions given Anti-Coag Initial Assessment Social Hx Patient Tobacco Use Status: Former Tobacco user Coding Level of Care Code Est Patient Level 1 Diagnoses Current use of anticoagulant therapy Z79.01 Assessment & Plan Assessment & Plan (1) Current use of anticoagulant therapy: Code(s): Z79.01 - senior care (current) use of anticoagulants Category: Medical
== END 2024-02-06 10:15 | disposition home or self-care (01) ==
LOC: HO.ACS 09:33
PROVIDERS: PCP Internal Medicine; Visit Provider Internal Medicine
DX: Z79.01 Long term (current) use of anticoagulants (principal)

== ENCOUNTER → 2024-02-06 09:33 | Outpatient (BNVA) | payer MEDICARE, SELFPAY | PROVIDERS: PCP Internal Medicine; Visit Provider Internal Medicine | DX: Z95.2 Presence of prosthetic heart valve (principal); Z79.01 Long term (current) use of anticoagulants; Z51.81 Encounter for therapeutic drug level monitoring | CPT/HCPCS: 85610; 99211 ==

== ENCOUNTER 2024-02-22 09:18 | Outpatient (AMB) | payer MEDICARE, SELFPAY ==
[2024-02-22 09:26] LABS: Prothrombin Time Whole Bld POC 29.4 sec (11.1-13.5); ~PT, ~INR - Anti Coag Clinic 2.5 (0.9-1.1)
--- NOTE | 2024-02-22 09:26 | MHC.OFFVISCO ---
Intake Intake Visit Reasons: Anticoagulation Allergies metformin Adverse Reaction (Intermediate, Verified 02/22/24 09:21) Stomach Upset Medication List - Last Reconciled 02/22/24 by Sheri Toney RN acetaminophen 1,000 mg PO DAILY PRN albuterol sulfate 90 mcg/actuation (Ventolin HFA) 2 puffs inhalation Q4-6H PRN atorvastatin 20 mg PO DAILY@1930 fluticasone propion-salmeterol 250-50 mcg/dose (Wixela Inhub) 1 inh inhalation BID 30 days furosemide 20 mg PO DAILY PRN glipizide ER 5 mg PO DAILY@0815 insulin glargine 10 units subcut DAILY@1830 lisinopril 5 mg PO DAILY@0815 metoprolol tartrate 25 mg PO BID montelukast 10 mg PO BEDTIME pen needle, diabetic (BD Ultra-Fine Short Pen Needle) As directed quetiapine 25 mg PO BEDTIME sertraline (Zoloft) 25 mg PO DAILY@0730 silver sulfadiazine 1% 1 appl topical DAILY PRN warfarin See Protocol 5 mg orally 7.5mg x 2 day/ 5mg x 5 days; Nursing Note INR: 2.5- in therapeutic range of 2-3 Medications and supplements reviewed No changes in health, diet, medications, or supplements, Denies any signs and symptoms of bleeding or bruising or clotting. Bleeding, bruising, clotting discussed Nutritional guidance given Dose: 5mg x 6, 7.5mg x 1 F/U INR: 2 weeks Patient verbalizes understanding of instructions given Anti-Coag Initial Assessment Social Hx Patient Tobacco Use Status: Former Tobacco user Coding Level of Care Code Est Patient Level 1 Diagnoses Current use of anticoagulant therapy Z79.01 Assessment & Plan Assessment & Plan (1) Current use of anticoagulant therapy: Code(s): Z79.01 - [facility] (current) use of anticoagulants Category: Medical
== END 2024-02-22 09:33 | disposition home or self-care (01) ==
LOC: HO.ACS 09:18
PROVIDERS: PCP Internal Medicine; Visit Provider Internal Medicine
DX: Z79.01 Long term (current) use of anticoagulants (principal)

== ENCOUNTER 2024-02-22 09:18 | Outpatient (REF) | payer MEDICARE, SELFPAY ==
[2024-02-22 10:00] LABS: MANUAL DIFF FLAG NO
[2024-02-22 11:04] LABS: Basophils Percent Auto 0.6 % (0-2); Eosinophils Absolute Auto 0.3 X10*3/uL (0.0-0.4); Eosinophils Percent Auto 4.5 % (0-4); Hematocrit 32.2 % (42.0-52.0); Hemoglobin 10.6 g/dl (14.0-18.0); Imm Gran Abs Auto 0.03 X10*3/uL (0.00-0.03); Imm Gran Pct Auto 0.4 % (0.0-0.4); Lymphocytes Absolute Auto 0.8 X10*3/uL (1.2-4.9); Lymphocytes Percent Auto 12.5 % (20-40); Mean Corpuscular HGB Conc 32.9 g/dl (31.0-36.0); Mean Corpuscular Hemoglobin 33.2 pg (27.0-33.0); Mean Corpuscular Volume 100.9 fL (80.0-98.0); Mean Platelet Volume 10.9 fL (9.4-12.4); Monocytes Absolute Auto 0.7 X10*3/uL (0.1-1.2); Monocytes Percent Auto 10.9 % (2-11); Neutrophils Absolute Auto 4.8 x10*3/uL (2.0-8.3); Neutrophils Percent Auto 71.1 % (45-73); Platelet Count 147 X10*3/uL (160-400); Red Blood Count 3.19 X10*6/uL (4.60-5.80); Red Cell Distribution Width 14.8 % (11.0-16.0); White Blood Count 6.7 X10*3/uL (4.8-10.8)
[2024-02-22 11:10] LABS: Estimated Average Glucose 134 mg/dL; Hemoglobin A1C 126.6526 umol/L; Hemoglobin A1c % 6.3 % (<6.0); Total Hemoglobin (HGBA1C) 2771.3302 umol/L
[2024-02-22 12:02] LABS: Alanine Aminotransferase 23 U/L (0-40); Albumin Level 4.2 g/dL (3.5-5.0); Alkaline Phosphatase 128 U/L (39-117); Anion Gap 16 (12-20); Aspartate Amino Transferase 32 U/L (5-37); Blood Urea Nitrogen 25 mg/dL (9-16); Calcium 9.5 mg/dL (8.4-10.2); Carbon Dioxide 21 mmol/L (22-29); Chloride 109 mmol/L (96-108); Estimated Glomerular Filt Rate > 60; Glucose Random 87 mg/dL (60-115); Potassium 4.6 mmol/L (3.3-5.1); Sodium 141 mmol/L (135-145); Total Protein 7.3 g/dL (6.5-8.0)
[2024-02-22 12:42] LABS: Bilirubin Total 0.8 mg/dL (0.0-1.0)
== END 2024-02-22 09:19 | disposition home or self-care (01) ==
LOC: HO.LAB 09:18
PROVIDERS: Absent Provider Internal Medicine; PCP Internal Medicine; Visit Provider Internal Medicine
DX: E11.9 Type 2 diabetes mellitus without complications (principal); J44.9 Chronic obstructive pulmonary disease, unspecified; Z95.2 Presence of prosthetic heart valve; I10 Essential (primary) hypertension; R60.0 Localized edema; Z79.01 Long term (current) use of anticoagulants
CPT/HCPCS: 36415; 80053; 83036; 85025; 85610; 99211

== ENCOUNTER 2024-03-07 10:27 | Outpatient (AMB) | payer MEDICARE, SELFPAY ==
[2024-03-07 10:38] VITALS: BP 102/64; PULSE 62; O2SAT 97; BMI 40.0
--- NOTE | 2024-03-07 10:38 | MHC.OFFVIS ---
Vital Signs 03/07/24 10:38 Height 5 ft 10 in Weight 278 lb 14.156 oz BMI 40.0 BP 102/64 Blood Pressure Location Lt brachial Position Sitting Pulse 62 Pulse Source Pulse Oximeter Pulse Oximetry (%) 97 Oxygen Delivery Method Room Air Intake Visit Reasons: Asthma Intake Note: pt is her for follow up and does okay with his breathing, takes short walks. does state his appetite has increased a lot since December. 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 Allergies metformin Adverse Reaction (Intermediate, Verified 03/07/24 11:09) Stomach Upset Medication List - Last Reconciled 03/07/24 by Allyson Maradiaga MD acetaminophen 1,000 mg PO DAILY PRN albuterol sulfate 90 mcg/actuation (Ventolin HFA) 2 puffs inhalation Q4-6H PRN atorvastatin 20 mg PO DAILY@1930 fluticasone propion-salmeterol 250-50 mcg/dose (Wixela Inhub) 1 inh inhalation BID 30 days furosemide 20 mg PO DAILY PRN glipizide ER 5 mg PO DAILY@0815 insulin glargine 10 units subcut DAILY@1830 lisinopril 5 mg PO DAILY@0815 metoprolol tartrate 25 mg PO BID montelukast 10 mg PO BEDTIME pen needle, diabetic (BD Ultra-Fine Short Pen Needle) As directed quetiapine 25 mg PO BEDTIME sertraline (Zoloft) 25 mg PO DAILY@0730 silver sulfadiazine 1% 1 appl topical DAILY PRN warfarin See Protocol 5 mg orally 7.5mg x 2 day/ 5mg x 5 days; Do you need a note to return to daycare/school/sports/work: No HPI HPI Asthma: Details: 73 years old very pleasant gentleman who is a case of morbid obesity, He has previous history of sleep apnea which resolved and he has not been using CPAP a long-time. He is here for follow-up of his bronchial asthma. Previously was on steroids dependent in the past. Uses Wixela 250-50 twice a day and also is on montelukast 10 mg daily. He needs to use albuterol only once in a while. Overall his breathing has been stable. His 's concern is that he is over eating in the last few months and still feels hungry. I noticed that he is on quitetiapine 25 mg a day, and this may be increasing his appetite. [facility] Medical History (Updated 03/07/24 @ 11:18 by Allyson Maradiaga MD) Morbid obesity Cough Asthma-COPD overlap syndrome Steroid dependence COPD (chronic obstructive pulmonary disease) Eosinophilic asthma Social History Household Members: Spouse Housing: House Do you presently have visiting nurse or other home services: No Patient Tobacco Use Status: Former Tobacco user service: No Review of Systems Const All systems reviewed & are unremarkable except as noted in HPI and below Eyes Reports no additional complaints ENT Reports nasal congestion (INTERMITTENT BOUTS OF NASAL CONGESTION AND POSTNASAL DRIP) Card Denies chest pain, Denies irregular heart rhythm, Reports leg edema and Reports other (HISTORY OF AORTIC VALVE REPLACEMENT) Resp Reports as per HPI GI Reports no additional complaints Reports no additional complaints Musc Reports no additional complaints Skin/Breast Reports system reviewed and no additional complaints, except as documented Neuro Reports no additional complaints Psych Reports no additional complaints Physical Exam Vital Signs: Last Vital Signs Pulse 62 03/07/24 10:38 BP 102/64 03/07/24 10:38 Pulse Ox 97 03/07/24 10:38 Oxygen Delivery Method Room Air 03/07/24 10:38 BMI result Body Mass Index 40.0 Const Other: HE IS GROSSLY OBESE WITH BMI OF 39.8 General: comfortable, no acute distress, alert and awake Orientation/consciousness: patient oriented x3 HEENT Head: Yes normal to inspection General nose exam: No nasal polyps present and No nasal discharge present Face and sinus: Yes sinuses nontender Mouth: oropharynx abnormals (NARROW AND CROWDED, MALLAMPATI CLASS 3) Throat: Yes posterior oropharynx normal Eyes General: appearance normal, both eyes and all related structures Neck Neck: Yes normal visual inspection, Yes no lymphadenopathy, Yes trachea midline and Yes no JVD Thyroid: Thyroid normal Chest Chest palpation & inspection: abnormal inspection of the chest (MIDSTERNAL SURGICAL SCAR ,HEALED), normal palpation of entire chest wall and no tenderness Resp Other: PERCUSSION NOTE IS NOT PERCEPTIBLE BECAUSE OF THICK CHEST WALL. BREATH SOUNDS ARE DISTANT . LUNGS ARE CLREAR TODAY , NO WHEEZES ARE HEARD . Cardio Palpation: normal PMI Rate: regular rate Rhythm: regular rhythm Heart sounds: Clicking heart sound present (HAS METALLIC SOUND), no gallops and no murmurs GI Palpation (GI): Soft to palpation, nontender, No hepatosplenomegaly present, no masses and Other GI palpation findings present (MODERATELY OBESE) Auscultation: normal bowel sounds Back/Spine/Pelvis Thoracic/Lumbar Spine: thoracic and lumbar spine normal to inspection and thoraco-lumbar ROM limited Skin General skin exam: no rashes or lesions noted Neuro General: patient oriented x3 and no focal motor deficits Cranial nerves: Yes CN's II-XII intact bilaterally Extrem General: Yes normal to inspection, Yes no clubbing, cyanosis or edema, Yes no calf tenderness and Yes venous stasis dermatitis (ON BOTH LEGS) Psych Appearance: grossly normal and well kempt Speech and movement: Normal speech and movement present Assessment & Plan Assessment & Plan (1) Asthma-COPD overlap syndrome: Comment: HIS HISTORY AND FINDINGS OF PHYSICAL EXAMINATION ARE CONSISTENT WITH THE ASTHMA/COPD OVERLAP SYNDROME. HE RESPONDED TO STEROIDS WELL. BUT WE ARE TRYING TO KEEP HIM OFF THE SYSTEMIC STEROIDS. CURRENTLY DOING WELL ON WIXELA 250-50 B.I.D. AND MONTELUKAST 10 MG DAILY. HE NEEDS TO USE ALBUTEROL ONLY ONCE IN A WHILE. HE HAS NOT BEEN TAKING ANY ORAL STEROIDS FOR LONG TIME. Code(s): J44.9 - Chronic obstructive pulmonary disease, unspecified Category: Medical Plan: CONTINUE WIXELA 250-51 INHALATION B.I.D.. MONTELUKAST 10 MG DAILY AT BEDTIME ALBUTEROL HFA 2 PUFFS Q 4-6 HOURS BUT ONLY P.R.N.. (2) Eosinophilic asthma: Comment: HIS LAB TESTS IN THE PAST AND, CBC ON MULTIPLE TIMES SHOWS HIGH EIOSINOPHIL COUNT . HE HAS CHRONIC EOSINOPHILIC ASTHMA/COPD . ALSO HAS SLIGHTLY ELEVATED IGE . PATIENT HAD DECLINED TO CONSIDER BIOLOGIC TREATMENT. PRESENTLY HIS SYMPTOMS ARE WELL CONTROLLED WITH THE CURRENT REGIMEN WHICH IS CONTROLLING HIS ASTHMA WELL.. Code(s): J82.83 - Eosinophilic asthma Category: Medical Plan: CONTINUE THE PRESENT TREATMENT OF HIS ASTHMA. MONTELUKAST 10 MG DAILY IS CONTROLLING THE ALLERGIC PART. (3) Morbid obesity: Comment: PATIENT HAS HISTORY OF OBESITY FOR LONG TIME. HE HAS BEEN CHECKED FOR SLEEP APNEA IN THE PAST. NOW THAT HE HAS GAINED WEIGHT , I TALKED TO HIM ABOUT SLEEP APNEA BUT HE CLAIMS THAT HE SLEEPS WELL. Code(s): E66.01 - Morbid (severe) obesity due to excess calories Category: Medical Plan: ALERTED HIM THAT IF HE KEEPS ON GAINING WEIGHT HE WILL END UP HAVING OBSTRUCTIVE SLEEP APNEA. HIS IS ALSO INSTRUCTED TO, PREPARE FOOD WITH MORE VEGGIES AND SALADS, INSTRUCTED SHAMEKA TO DRINK A GLASS OF WATER BEFORE EACH MEAL . Coding Level of Care Code Est Pt Level 3 (89605) Diagnoses Asthma-COPD overlap syndrome J44.9 Eosinophilic asthma J82.83 Morbid obesity E66.01
== END 2024-03-07 11:12 | disposition home or self-care (01) ==
PROVIDERS: PCP Internal Medicine; Visit Provider Internal Medicine
DX: J44.9 Chronic obstructive pulmonary disease, unspecified (principal); J82.83 Eosinophilic asthma; E66.01 Morbid (severe) obesity due to excess calories
CPT/HCPCS: 99213

== ENCOUNTER → 2024-03-07 10:27 | Outpatient (BNVA) | payer MEDICARE, SELFPAY | PROVIDERS: PCP Internal Medicine; Visit Provider Internal Medicine | DX: J44.89 Other specified chronic obstructive pulmonary disease (principal); J82.83 Eosinophilic asthma; E66.01 Morbid (severe) obesity due to excess calories; Z68.41 Body mass index [BMI] 40.0-44.9, adult; Z79.01 Long term (current) use of anticoagulants | CPT/HCPCS: 85610; 99211; 99212 ==

== ENCOUNTER 2024-03-07 11:18 | Outpatient (AMB) | payer MEDICARE, SELFPAY ==
--- NOTE | 2024-03-07 11:28 | MHC.OFFVISCO ---
Intake Intake Visit Reasons: Anticoagulation Allergies metformin Adverse Reaction (Intermediate, Verified 03/07/24 11:22) Stomach Upset Medication List - Last Reconciled 03/07/24 by Sheri Toney RN acetaminophen 1,000 mg PO DAILY PRN albuterol sulfate 90 mcg/actuation (Ventolin HFA) 2 puffs inhalation Q4-6H PRN atorvastatin 20 mg PO DAILY@1930 fluticasone propion-salmeterol 250-50 mcg/dose (Wixela Inhub) 1 inh inhalation BID 30 days furosemide 20 mg PO DAILY PRN glipizide ER 5 mg PO DAILY@0815 insulin glargine 10 units subcut DAILY@1830 lisinopril 5 mg PO DAILY@0815 metoprolol tartrate 25 mg PO BID montelukast 10 mg PO BEDTIME pen needle, diabetic (BD Ultra-Fine Short Pen Needle) As directed quetiapine 25 mg PO BEDTIME sertraline (Zoloft) 25 mg PO DAILY@0730 silver sulfadiazine 1% 1 appl topical DAILY PRN warfarin See Protocol 5 mg orally 7.5mg x 2 day/ 5mg x 5 days; Nursing Note INR: 2.5- in therapeutic range of 2.5-3.5 Medications and supplements reviewed No changes in health, diet, medications, or supplements, Denies any signs and symptoms of bleeding or bruising or clotting. Bleeding, bruising, clotting discussed Nutritional guidance given - no greens for 2 days, increase reds Dose: 5mg x 6, 7.5mg x 1 F/U INR: 2 weeks Patient verbalizes understanding of instructions given Anti-Coag Initial Assessment Social Hx Patient Tobacco Use Status: Former Tobacco user Coding Level of Care Code Est Patient Level 1 Diagnoses Current use of anticoagulant therapy Z79.01 Results AMB INR Fingerstick AMB INR Fingerstick 2.5 Last Edit by Sheri Toney RN on 03/07/24 11:31 interface delay Assessment & Plan Assessment & Plan (1) Current use of anticoagulant therapy: Code(s): Z79.01 - retirement (current) use of anticoagulants Category: Medical
[2024-03-08 09:30] LABS: Prothrombin Time Whole Bld POC 29.8 sec (11.1-13.5); ~PT, ~INR - Anti Coag Clinic 2.5 (0.9-1.1)
== END 2024-03-07 11:35 | disposition home or self-care (01) ==
LOC: HO.ACS 11:18
PROVIDERS: PCP Internal Medicine; Visit Provider Internal Medicine
DX: Z79.01 Long term (current) use of anticoagulants (principal)

== ENCOUNTER 2024-03-28 09:16 | Outpatient (AMB) | payer MEDICARE, SELFPAY ==
--- NOTE | 2024-03-28 09:41 | MHC.OFFVISCO ---
Intake Intake Visit Reasons: Anticoagulation Allergies metformin Adverse Reaction (Intermediate, Verified 03/28/24 09:29) Stomach Upset Medication List - Last Reconciled 03/28/24 by Nabila Haywood RN acetaminophen 1,000 mg PO DAILY PRN albuterol sulfate 90 mcg/actuation (Ventolin HFA) 2 puffs inhalation Q4-6H PRN atorvastatin 20 mg PO DAILY@1930 fluticasone propion-salmeterol 250-50 mcg/dose (Wixela Inhub) 1 inh inhalation BID 30 days furosemide 20 mg PO DAILY PRN glipizide ER 5 mg PO DAILY@0815 insulin glargine 10 units subcut DAILY@1830 lisinopril 5 mg PO DAILY@0815 metoprolol tartrate 25 mg PO BID montelukast 10 mg PO BEDTIME pen needle, diabetic (BD Ultra-Fine Short Pen Needle) As directed quetiapine 25 mg PO BEDTIME sertraline (Zoloft) 25 mg PO DAILY@0730 silver sulfadiazine 1% 1 appl topical DAILY PRN warfarin See Protocol 5 mg orally 7.5mg x 2 day/ 5mg x 5 days; Nursing Note NO CP,SOB,DIET/MED CHANGES,FALLS OR SX OF BLEEDING. CONTINUE PRESENT DOSE AND FOLLOW-UP IN 3 WEKS. GOOD UNDERSTANDING OF DOSING INSTR. 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
== END 2024-03-28 09:42 | disposition home or self-care (01) ==
LOC: HO.ACS 09:16
PROVIDERS: PCP Internal Medicine; Visit Provider Internal Medicine
DX: Z79.01 Long term (current) use of anticoagulants (principal)

== ENCOUNTER → 2024-03-28 09:16 | Outpatient (BNVA) | payer MEDICARE, SELFPAY | PROVIDERS: PCP Internal Medicine; Visit Provider Internal Medicine | DX: Z95.2 Presence of prosthetic heart valve (principal); Z79.01 Long term (current) use of anticoagulants; Z51.81 Encounter for therapeutic drug level monitoring | CPT/HCPCS: 85610; 99211 ==

== ENCOUNTER 2024-04-16 09:15 | Outpatient (AMB) | payer MEDICARE, SELFPAY ==
--- NOTE | 2024-04-16 09:22 | MHC.OFFVISCO ---
Intake Intake Visit Reasons: Anticoagulation Allergies metformin Adverse Reaction (Intermediate, Verified 04/16/24 09:17) Stomach Upset Medication List - Last Reconciled 04/16/24 by Shrei Toney RN acetaminophen 1,000 mg PO DAILY PRN albuterol sulfate 90 mcg/actuation (Ventolin HFA) 2 puffs inhalation Q4-6H PRN atorvastatin 20 mg PO DAILY@1930 fluticasone propion-salmeterol 250-50 mcg/dose (Wixela Inhub) 1 inh inhalation BID 30 days furosemide 20 mg PO DAILY PRN glipizide ER 5 mg PO DAILY@0815 insulin glargine 10 units subcut DAILY@1830 lisinopril 5 mg PO DAILY@0815 metoprolol tartrate 25 mg PO BID montelukast 10 mg PO BEDTIME pen needle, diabetic (BD Ultra-Fine Short Pen Needle) As directed quetiapine 25 mg PO BEDTIME sertraline (Zoloft) 25 mg PO DAILY@0730 silver sulfadiazine 1% 1 appl topical DAILY PRN warfarin See Protocol 5 mg orally 7.5mg x 2 day/ 5mg x 5 days; Nursing Note INR: 2.6- in therapeutic range 2.5-3.5 Medications and supplements reviewed No changes in health, diet, medications, or supplements, Denies any signs and symptoms of bleeding or bruising or clotting. 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
[2024-04-16 09:24] LABS: Prothrombin Time Whole Bld POC 31.6 sec (11.1-13.5); ~PT, ~INR - Anti Coag Clinic 2.6 (0.9-1.1)
== END 2024-04-16 09:29 | disposition home or self-care (01) ==
LOC: HO.ACS 09:15
PROVIDERS: PCP Internal Medicine; Visit Provider Internal Medicine
DX: Z79.01 Long term (current) use of anticoagulants (principal)

== ENCOUNTER → 2024-04-16 09:15 | Outpatient (BNVA) | payer MEDICARE, SELFPAY | PROVIDERS: PCP Internal Medicine; Visit Provider Internal Medicine | DX: Z95.2 Presence of prosthetic heart valve (principal); Z79.01 Long term (current) use of anticoagulants; Z51.81 Encounter for therapeutic drug level monitoring | CPT/HCPCS: 85610; 99211 ==

== ENCOUNTER 2024-05-09 09:12 | Outpatient (AMB) | payer MEDICARE, SELFPAY ==
--- NOTE | 2024-05-09 09:29 | MHC.OFFVISCO ---
Intake Intake Visit Reasons: Anticoagulation Allergies metformin Adverse Reaction (Intermediate, Verified 05/09/24 09:22) Stomach Upset Medication List - Last Reconciled 05/09/24 by Sheri Toney RN acetaminophen 1,000 mg PO DAILY PRN albuterol sulfate 90 mcg/actuation (Ventolin HFA) 2 puffs inhalation Q4-6H PRN atorvastatin 20 mg PO DAILY@1930 fluticasone propion-salmeterol 250-50 mcg/dose (Wixela Inhub) 1 inh inhalation BID 30 days furosemide 20 mg PO DAILY PRN glipizide ER 5 mg PO DAILY@0815 insulin glargine 10 units subcut DAILY@1830 lisinopril 5 mg PO DAILY@0815 metoprolol tartrate 25 mg PO BID montelukast 10 mg PO BEDTIME pen needle, diabetic (BD Ultra-Fine Short Pen Needle) As directed quetiapine 25 mg PO TID sertraline (Zoloft) 25 mg PO DAILY@0730 silver sulfadiazine 1% 1 appl topical DAILY PRN warfarin See Protocol 5 mg orally 7.5mg x 2 day/ 5mg x 5 days; Nursing Note INR: 2.8- in therapeutic range of 2.5-3.5 Medications and supplements reviewed- quetiapine increased to 25mg tid- which will raise inr per micromedex pt weekly dosing decreased when starting quetiapine No changes in health, diet, medications, or supplements, Denies any signs and symptoms of bleeding or bruising or clotting. Bleeding, bruising, clotting discussed Nutritional guidance given Dose: reduce to 5mg daily F/U INR: pt spouse req 2 weeks Patient verbalizes understanding of instructions given Anti-Coag Initial Assessment Social Hx Patient Tobacco Use Status: Former Tobacco user Coding Level of Care Code Est Patient Level 1 Diagnoses Current use of anticoagulant therapy Z79.01 Assessment & Plan Assessment & Plan (1) Current use of anticoagulant therapy: Code(s): Z79.01 - [facility] (current) use of anticoagulants Category: Medical
[2024-05-09 09:30] LABS: Prothrombin Time Whole Bld POC 33.7 sec (11.1-13.5); ~PT, ~INR - Anti Coag Clinic 2.8 (0.9-1.1)
== END 2024-05-09 09:43 | disposition home or self-care (01) ==
LOC: HO.ACS 09:12
PROVIDERS: PCP Internal Medicine; Visit Provider Internal Medicine
DX: Z79.01 Long term (current) use of anticoagulants (principal)

== ENCOUNTER → 2024-05-09 09:12 | Outpatient (BNVA) | payer MEDICARE, SELFPAY | PROVIDERS: PCP Internal Medicine; Visit Provider Internal Medicine | DX: Z95.2 Presence of prosthetic heart valve (principal); Z79.01 Long term (current) use of anticoagulants; Z51.81 Encounter for therapeutic drug level monitoring | CPT/HCPCS: 85610; 99211 ==

== ENCOUNTER → 2024-05-23 09:25 | Outpatient (BNVA) | payer MEDICARE, SELFPAY | PROVIDERS: PCP Internal Medicine; Visit Provider Internal Medicine | DX: Z95.2 Presence of prosthetic heart valve (principal); Z79.01 Long term (current) use of anticoagulants; Z51.81 Encounter for therapeutic drug level monitoring | CPT/HCPCS: 85610; 99211 ==

== ENCOUNTER 2024-06-13 09:19 | Outpatient (AMB) | payer MEDICARE, SELFPAY ==
[2024-06-13 09:34] LABS: Prothrombin Time Whole Bld POC 31.3 sec (11.1-13.5); ~PT, ~INR - Anti Coag Clinic 2.6 (0.9-1.1)
--- NOTE | 2024-06-13 09:34 | MHC.OFFVISCO ---
Intake Intake Visit Reasons: Anticoagulation Allergies metformin Adverse Reaction (Intermediate, Verified 06/13/24 09:27) Stomach Upset Medication List - Last Reconciled 06/13/24 by Sheri Toney RN acetaminophen 1,000 mg PO DAILY PRN albuterol sulfate 90 mcg/actuation (Ventolin HFA) 2 puffs inhalation Q4-6H PRN atorvastatin 20 mg PO DAILY@1930 fluticasone propion-salmeterol 250-50 mcg/dose (Wixela Inhub) 1 inh inhalation BID 30 days furosemide 20 mg PO DAILY PRN glipizide ER 5 mg PO DAILY@0815 insulin glargine 10 units subcut DAILY@1830 lisinopril 5 mg PO DAILY@0815 metoprolol tartrate 25 mg PO BID montelukast 10 mg PO BEDTIME pen needle, diabetic (BD Ultra-Fine Short Pen Needle) As directed quetiapine 25 mg PO TID sertraline (Zoloft) 25 mg PO DAILY@0730 silver sulfadiazine 1% 1 appl topical DAILY PRN warfarin See Protocol 5 mg orally 7.5mg x 2 day/ 5mg x 5 days; Nursing Note INR: 2.6- in therapeutic range 2.5-3.5 Medications and supplements reviewed No changes in health, diet, medications, or supplements, Denies any signs and symptoms of bleeding or bruising or clotting. Bleeding, bruising, clotting discussed Nutritional guidance given - no greens for 2 days, will eat a red today Dose: 7.5mg x 1, 5mg x 6 F/U INR: 2 weeks Patient verbalizes understanding of instructions given to acs with spouse, amb with cane Anti-Coag Initial Assessment Social Hx Patient Tobacco Use Status: Former Tobacco user Coding Level of Care Code Est Patient Level 1 Diagnoses Current use of anticoagulant therapy Z79.01 Assessment & Plan Assessment & Plan (1) Current use of anticoagulant therapy: Code(s): Z79.01 - [facility] (current) use of anticoagulants Category: Medical
== END 2024-06-13 09:42 | disposition home or self-care (01) ==
LOC: HO.ACS 09:19
PROVIDERS: PCP Internal Medicine; Visit Provider Internal Medicine
DX: Z79.01 Long term (current) use of anticoagulants (principal)

== ENCOUNTER → 2024-06-13 09:19 | Outpatient (BNVA) | payer MEDICARE, SELFPAY | PROVIDERS: PCP Internal Medicine; Visit Provider Internal Medicine | DX: Z95.2 Presence of prosthetic heart valve (principal); Z79.01 Long term (current) use of anticoagulants; Z51.81 Encounter for therapeutic drug level monitoring | CPT/HCPCS: 85610; 99211 ==

== ENCOUNTER 2024-06-27 09:20 | Outpatient (AMB) | payer MEDICARE, SELFPAY ==
--- NOTE | 2024-06-27 09:48 | MHC.OFFVISCO ---
Intake Intake Visit Reasons: Anticoagulation Allergies metformin Adverse Reaction (Intermediate, Verified 06/27/24 09:39) Stomach Upset Medication List - Last Reconciled 06/27/24 by Sheri Toney RN acetaminophen 1,000 mg PO DAILY PRN albuterol sulfate 90 mcg/actuation (Ventolin HFA) 2 puffs inhalation Q4-6H PRN atorvastatin 20 mg PO DAILY@1930 fluticasone propion-salmeterol 250-50 mcg/dose (Wixela Inhub) 1 inh inhalation BID 30 days furosemide 20 mg PO DAILY PRN glipizide ER 5 mg PO DAILY@0815 insulin glargine 10 units subcut DAILY@1830 lisinopril 5 mg PO DAILY@0815 metoprolol tartrate 25 mg PO BID montelukast 10 mg PO BEDTIME pen needle, diabetic (BD Ultra-Fine Short Pen Needle) As directed quetiapine 25 mg PO TID sertraline (Zoloft) 25 mg PO DAILY@0730 silver sulfadiazine 1% 1 appl topical DAILY PRN warfarin See Protocol 5 mg orally 7.5mg x 2 day/ 5mg x 5 days; Nursing Note INR: 2.8- in therapeutic range of 2.5- 3.5 Medications and supplements reviewed- no changes No changes in health, diet, medications, or supplements, Denies any signs and symptoms of bleeding or bruising or clotting. Bleeding, bruising, clotting discussed Nutritional guidance given Dose: 5mg x 6, 7.5mg x 1 F/U INR: 3 weeks Patient verbalizes understanding of instructions given pt amb with cane, acompanied by spouse Anti-Coag Initial Assessment Social Hx Patient Tobacco Use Status: Former Tobacco user Coding Level of Care Code Est Patient Level 1 Diagnoses Current use of anticoagulant therapy Z79.01 Results AMB INR Fingerstick AMB INR Fingerstick 2.8 Last Edit by Sheri Toney RN on 06/27/24 09:49 interface delay Assessment & Plan Assessment & Plan (1) Current use of anticoagulant therapy: Code(s): Z79.01 - intermediate (current) use of anticoagulants Category: Medical
[2024-06-27 09:49] LABS: Prothrombin Time Whole Bld POC 33.8 sec (11.1-13.5); ~PT, ~INR - Anti Coag Clinic 2.8 (0.9-1.1)
== END 2024-06-27 09:54 | disposition home or self-care (01) ==
LOC: HO.ACS 09:20
PROVIDERS: PCP Internal Medicine; Visit Provider Internal Medicine
DX: Z79.01 Long term (current) use of anticoagulants (principal)

== ENCOUNTER → 2024-06-27 09:20 | Outpatient (BNVA) | payer MEDICARE, SELFPAY | PROVIDERS: PCP Internal Medicine; Visit Provider Internal Medicine | DX: Z95.2 Presence of prosthetic heart valve (principal); Z79.01 Long term (current) use of anticoagulants; Z51.81 Encounter for therapeutic drug level monitoring | CPT/HCPCS: 85610; 99211 ==

== ENCOUNTER 2024-07-18 09:19 | Outpatient (AMB) | payer MEDICARE, SELFPAY ==
[2024-07-18 09:41] LABS: Prothrombin Time Whole Bld POC 38.8 sec (11.1-13.5); ~PT, ~INR - Anti Coag Clinic 3.2 (0.9-1.1)
--- NOTE | 2024-07-18 09:41 | MHC.OFFVISCO ---
Intake Intake Visit Reasons: Anticoagulation Allergies metformin Adverse Reaction (Intermediate, Verified 07/18/24 09:28) Stomach Upset Medication List - Last Reconciled 07/18/24 by Nabila Haywood RN acetaminophen 1,000 mg PO DAILY PRN albuterol sulfate 90 mcg/actuation (Ventolin HFA) 2 puffs inhalation Q4-6H PRN atorvastatin 20 mg PO DAILY@1930 fluticasone propion-salmeterol 250-50 mcg/dose (Wixela Inhub) 1 inh inhalation BID 30 days furosemide 20 mg PO DAILY PRN glipizide ER 5 mg PO DAILY@0815 insulin glargine 10 units subcut DAILY@1830 lisinopril 5 mg PO DAILY@0815 metoprolol tartrate 25 mg PO BID montelukast 10 mg PO BEDTIME pen needle, diabetic (BD Ultra-Fine Short Pen Needle) As directed quetiapine 25 mg PO TID sertraline (Zoloft) 25 mg PO DAILY@0730 silver sulfadiazine 1% 1 appl topical DAILY PRN warfarin See Protocol 5 mg orally 7.5mg x 2 day/ 5mg x 5 days; Nursing Note NO CP,SOB,DIET/MED CHANGES,FALLS OR SX OF BLEEDING. CONTINUE PRESENT DOSE AND FOLLOW-UP IN 4 WEEKS. GOOD UNDERSTANDING OF DOSING INSTR.BY . Anti-Coag Initial Assessment Social Hx Patient Tobacco Use Status: Former Tobacco user Coding Level of Care Code Est Patient Level 1 Diagnoses Current use of anticoagulant therapy Z79.01 Results AMB INR Fingerstick AMB INR Fingerstick 3.2 Last Edit by Nabila Haywood RN on 07/18/24 09:34 Assessment & Plan Assessment & Plan (1) Current use of anticoagulant therapy: Code(s): Z79.01 - correction (current) use of anticoagulants Category: Medical
== END 2024-07-18 10:53 | disposition home or self-care (01) ==
LOC: HO.ACS 09:19
PROVIDERS: PCP Internal Medicine; Visit Provider Internal Medicine Medical Oncology
DX: Z79.01 Long term (current) use of anticoagulants (principal)

== ENCOUNTER → 2024-07-18 09:19 | Outpatient (BNVA) | payer MEDICARE, SELFPAY | PROVIDERS: PCP Internal Medicine; Visit Provider Internal Medicine Medical Oncology | DX: Z95.2 Presence of prosthetic heart valve (principal); Z51.81 Encounter for therapeutic drug level monitoring; Z79.01 Long term (current) use of anticoagulants | CPT/HCPCS: 85610; 99211 ==

== ENCOUNTER 2024-08-15 09:14 | Outpatient (AMB) | payer MEDICARE, SELFPAY ==
[2024-08-15 09:39] LABS: Prothrombin Time Whole Bld POC 48.7 sec (11.1-13.5); ~PT, ~INR - Anti Coag Clinic 4.1 (0.9-1.1)
--- NOTE | 2024-08-15 09:53 | MHC.OFFVISCO ---
Intake Intake Visit Reasons: Anticoagulation Allergies metformin Adverse Reaction (Intermediate, Verified 08/15/24 09:29) Stomach Upset Medication List - Last Reconciled 08/15/24 by Nabila Haywood RN acetaminophen 1,000 mg PO DAILY PRN albuterol sulfate 90 mcg/actuation (Ventolin HFA) 2 puffs inhalation Q4-6H PRN atorvastatin 20 mg PO DAILY@1930 fluticasone propion-salmeterol 250-50 mcg/dose (Wixela Inhub) 1 inh inhalation BID 30 days furosemide 20 mg PO DAILY PRN glipizide ER 5 mg (1/2 x 10 mg) PO DAILY@0815 insulin glargine (Basaglar KwikPen U-100 Insulin) 10 units (0.1 mL) subcut BEDTIME lisinopril 5 mg PO DAILY@0815 metoprolol tartrate 25 mg PO BID montelukast 10 mg PO BEDTIME pen needle, diabetic check glucose 4 times daily quetiapine 25 mg PO TID sertraline (Zoloft) 25 mg PO DAILY@0730 silver sulfadiazine 1% 1 appl topical DAILY PRN warfarin See Protocol 5 mg orally 7.5mg x 2 day/ 5mg x 5 days; Nursing Note QUETIAPINE AND SERTRALINE HAVE BOTH BEEN INCREASED BY NEW PCP. POSSIBLE CAUSE OF INCREASE TODAY MAY BE QUETIAPINE. NO CP,SOB,DIET CHANGES OR SX OF BLEEDING.'HOLD WARFARIN TODAY THEN RESUME PRESENT DOSE AND FOLLOW-UP IN 2 WEEKS. GOOD UNDERSTANDING OF DOSING INSTR.BY . Anti-Coag Initial Assessment Social Hx Patient Tobacco Use Status: Former Tobacco user Coding Level of Care Code Est Patient Level 1 Diagnoses Current use of anticoagulant therapy Z79.01 Assessment & Plan Assessment & Plan (1) Current use of anticoagulant therapy: Code(s): Z79.01 - longterm (current) use of anticoagulants Category: Medical Medications: New sertraline 50 mg PO DAILY quetiapine 50 mg PO BID
== END 2024-08-15 09:57 | disposition home or self-care (01) ==
LOC: HO.ACS 09:14
PROVIDERS: PCP Internal Medicine; Visit Provider Internal Medicine Medical Oncology
DX: Z79.01 Long term (current) use of anticoagulants (principal)

== ENCOUNTER → 2024-08-15 09:14 | Outpatient (BNVA) | payer MEDICARE, SELFPAY | PROVIDERS: PCP Internal Medicine; Visit Provider Internal Medicine Medical Oncology | DX: Z95.2 Presence of prosthetic heart valve (principal); Z79.01 Long term (current) use of anticoagulants; Z51.81 Encounter for therapeutic drug level monitoring | CPT/HCPCS: 85610; 99211 ==

== ENCOUNTER 2024-08-28 10:29 | Outpatient (AMB) | payer MEDICARE, SELFPAY ==
--- NOTE | 2024-08-28 10:56 | A.OFFVIS_ITS ---
Vital Signs 08/28/24 10:57 Height 5 ft 10 in Weight 274 lb 7.608 oz BMI 39.4 BP 110/70 Blood Pressure Location Lt brachial Position Sitting Pulse 60 Pulse Source Pulse Oximeter Pulse Oximetry (%) 96 Oxygen Delivery Method Room Air Intake Visit Reasons: Asthma Intake Note: pt is here for follow up and states some short of breath with exertion, sitting has it come back. Automatic Lathe Operator Required: No Allergies metformin Adverse Reaction (Intermediate, Verified 08/28/24 11:25) Stomach Upset Medication List - Last Reconciled 08/28/24 by Allyson Maradiaga MD acetaminophen 1,000 mg PO DAILY PRN albuterol sulfate 90 mcg/actuation (Ventolin HFA) 2 puffs inhalation Q4-6H PRN atorvastatin 20 mg PO DAILY@1930 fluticasone propion-salmeterol 250-50 mcg/dose (Wixela Inhub) 1 inh inhalation BID 30 days furosemide 20 mg PO DAILY PRN glipizide ER 5 mg (1/2 x 10 mg) PO DAILY@0815 insulin glargine (Basaglar KwikPen U-100 Insulin) 10 units (0.1 mL) subcut BEDTIME lisinopril 5 mg PO DAILY@0815 metoprolol tartrate 25 mg PO BID montelukast 10 mg PO BEDTIME pen needle, diabetic check glucose 4 times daily quetiapine 50 mg PO BID sertraline 50 mg PO DAILY silver sulfadiazine 1% 1 appl topical DAILY PRN warfarin See Protocol 5 mg orally 7.5mg x 2 day/ 5mg x 5 days; Do you need a note to return to daycare/school/sports/work: No HPI HPI Asthma: Details: MR. MCCRAY 74 YEARS OLD GENTLEMAN, GROSSLY OBESE BUT HAPPY GOING, COMES FOR FOLLOW-UP AFTER 6 MONTHS. HE HAS HISTORY OF OBSTRUCTIVE SLEEP APNEA BUT HAS GIVEN UP ON USING THE CPAP. CLAIMS TO BE. SLEEPING GOOD HE SLEEPS IN A RECLINING CHAIR. HE DOES GET 6-7 HOURS SLEEP EVERY NIGHT, DENIES ANY DAYTIME SLEEPINESS. BREATHING HAS BEEN OKAY, JUST SHORTNESS OF BREATH WHEN HE WALKS AROUND OR CLIMBS STAIRS, BUT HE DOES NOT TOO MUCH WALKING ANYWAY, USING WIXELA 250-50 MOSTLY ONCE A DAY IN THE MORNING, AND SOMETIME HE DOES USE THE 2ND DOSE WELL. HE HAS NOT USE THE ALBUTEROL FOR LONG-TERM. [facility] Medical History Morbid obesity Cough Asthma-COPD overlap syndrome Steroid dependence COPD (chronic obstructive pulmonary disease) Eosinophilic asthma Social History Household Members: Spouse Housing: House Do you presently have visiting nurse or other home services: No Patient Tobacco Use Status: Former Tobacco user service: No Review of Systems Const All systems reviewed & are unremarkable except as noted in HPI and below Eyes Reports no additional complaints ENT Reports nasal congestion (INTERMITTENT BOUTS OF NASAL CONGESTION AND POSTNASAL DRIP) Card Denies chest pain, Denies irregular heart rhythm, Reports leg edema and Reports other (HISTORY OF AORTIC VALVE REPLACEMENT) Resp Reports as per HPI GI Reports no additional complaints Reports no additional complaints Musc Reports no additional complaints Skin/Breast Reports system reviewed and no additional complaints, except as documented Neuro Reports no additional complaints Psych Reports no additional complaints Physical Exam Vital Signs: Last Vital Signs Pulse 60 08/28/24 10:57 BP 110/70 08/28/24 10:57 Pulse Ox 96 08/28/24 10:57 Oxygen Delivery Method Room Air 08/28/24 10:57 BMI result Body Mass Index 39.4 Const Other: HE IS GROSSLY OBESE WITH BMI OF 39.8 General: comfortable, no acute distress, alert and awake Orientation/consciousness: patient oriented x3 HEENT Head: Yes normal to inspection General nose exam: No nasal polyps present and No nasal discharge present Face and sinus: Yes sinuses nontender Mouth: oropharynx abnormals (NARROW AND CROWDED, MALLAMPATI CLASS 3) Throat: Yes posterior oropharynx normal Eyes General: appearance normal, both eyes and all related structures Neck Neck: Yes normal visual inspection, Yes no lymphadenopathy, Yes trachea midline and Yes no JVD Thyroid: Thyroid normal Chest Chest palpation & inspection: abnormal inspection of the chest (MIDSTERNAL SURGICAL SCAR ,HEALED), normal palpation of entire chest wall and no tenderness Resp Other: PERCUSSION NOTE IS NOT PERCEPTIBLE BECAUSE OF THICK CHEST WALL. BREATH SOUNDS ARE DISTANT . LUNGS ARE CLREAR TODAY , NO WHEEZES ARE HEARD . Cardio Palpation: normal PMI Rate: regular rate Rhythm: regular rhythm Heart sounds: Clicking heart sound present (HAS METALLIC SOUND), no gallops and no murmurs GI Palpation (GI): Soft to palpation, nontender, No hepatosplenomegaly present, no masses and Other GI palpation findings present (MODERATELY OBESE) Auscultation: normal bowel sounds Back/Spine/Pelvis Thoracic/Lumbar Spine: thoracic and lumbar spine normal to inspection and tho raco-lumbar ROM limited Skin General skin exam: no rashes or lesions noted Neuro General: patient oriented x3 and no focal motor deficits Cranial nerves: Yes CN's II-XII intact bilaterally Extrem General: Yes normal to inspection, Yes no clubbing, cyanosis or edema, Yes no calf tenderness and Yes venous stasis dermatitis (ON BOTH LEGS) Psych Appearance: grossly normal and well kempt Speech and movement: Normal speech and movement present Results AMB INR Fingerstick AMB INR Fingerstick 3.5 Last Edit by Lizzie Rouse RN on 08/28/24 11:38 MANUAL ENTRY Assessment & Plan Assessment & Plan (1) Asthma-COPD overlap syndrome: Comment: HIS HISTORY AND FINDINGS OF PHYSICAL EXAMINATION ARE CONSISTENT WITH THE ASTHMA/COPD OVERLAP SYNDROME. HE RESPONDED TO STEROIDS WELL. HE DOES HAVE HISTORY OF MILD EOSINOPHILIA AND HYPER IGE. BUT HAD DECLINED TO USE THE BIOLOGIC TREATMENT. HE USED TO BE DEPENDENT ON ORAL STEROIDS BUT WE ARE TRYING TO KEEP HIM OFF THE SYSTEMIC STEROIDS. CURRENTLY DOING WELL ON WIXELA 250-50 B.I.D. AND MONTELUKAST 10 MG DAILY. MOST OF THE DAYS HE IS USING WIXELA ONLY ONCE A DAY IN THE MORNING. HE NEEDS TO USE ALBUTEROL ONLY ONCE IN A WHILE. HE HAS NOT BEEN TAKING ANY ORAL STEROIDS FOR LONG TIME. Code(s): J44.9 - Chronic obstructive pulmonary disease, unspecified Category: Medical Plan: ADVISE THAT HE SHOULD CONTINUE TO USE WIXELA 250-51 INH IN THE MORNING, AND THE 2ND DOSE IN THE EVENING CAN BE PRN. ALBUTEROL HFA Q 6 HOURS ONLY P.R.N.. CONTINUE TO USE MONTELUKAST 10 MG DAILY. (2) Cough: Comment: HAS CHRONIC COUGH FOR THE PAST MANY YEARS, MOST LIKELY SECONDARY TO ALLERGIC ASTHMA/COPD. COUGH IS MINIMAL AND WELL CONTROLLED AT THIS TIME. Code(s): R05.9 - Cough, unspecified Category: Medical Plan: TREATMENT UNDER ASTHMA-COPD OVERLAP SYNDROME (3) Morbid obesity: Comment: PATIENT HAS HISTORY OF OBESITY FOR LONG TIME. HE HAS BEEN CHECKED FOR SLEEP APNEA IN THE PAST. NOW THAT HE HAS GAINED WEIGHT , I TALKED TO HIM ABOUT SLEEP APNEA BUT HE CLAIMS THAT HE SLEEPS WELL. HE SLEEPS IN RECLINING CHAIR. Code(s): E66.01 - Morbid (severe) obesity due to excess calories Category: Medical Plan: TALKED ABOUT THE DIET AND NEED TO LOSE SOME WEIGHT BUT, HE FEELS OKAY AND NOT INTERESTED IN ANY WEIGHT REDUCTION PROGRAM. Coding Level of Care Code Est Pt Level 3 (46112) Diagnoses Asthma-COPD overlap syndrome J44.9 Cough R05.9 Morbid obesity E66.01
[2024-08-28 10:57] VITALS: BP 110/70; PULSE 60; O2SAT 96; BMI 39.4
== END 2024-08-28 11:20 | disposition home or self-care (01) ==
LOC: HO.HPS 10:30
PROVIDERS: PCP Internal Medicine; Visit Provider Internal Medicine
DX: J44.9 Chronic obstructive pulmonary disease, unspecified (principal); R05.9 Cough, unspecified; E66.01 Morbid (severe) obesity due to excess calories
CPT/HCPCS: 99213

== ENCOUNTER → 2024-08-28 10:29 | Outpatient (BNVA) | payer MEDICARE, SELFPAY | PROVIDERS: PCP Internal Medicine; Visit Provider Internal Medicine | DX: J44.9 Chronic obstructive pulmonary disease, unspecified (principal); R05.9 Cough, unspecified; E66.01 Morbid (severe) obesity due to excess calories; Z68.39 Body mass index [BMI] 39.0-39.9, adult; Z95.2 Presence of prosthetic heart valve; Z79.01 Long term (current) use of anticoagulants; Z51.81 Encounter for therapeutic drug level monitoring | CPT/HCPCS: 85610; 99211; 99212 ==

== ENCOUNTER 2024-08-28 11:25 | Outpatient (AMB) | payer MEDICARE, SELFPAY ==
[2024-08-28 11:35] LABS: Prothrombin Time Whole Bld POC 41.7 sec (11.1-13.5); ~PT, ~INR - Anti Coag Clinic 3.5 (0.9-1.1)
--- NOTE | 2024-08-28 11:43 | MHC.OFFVISCO ---
Intake Intake Visit Reasons: Anticoagulation Allergies metformin Adverse Reaction (Intermediate, Verified 08/28/24 11:25) Stomach Upset Medication List - Last Reconciled 08/28/24 by Lizzie Rouse RN acetaminophen 1,000 mg PO DAILY PRN albuterol sulfate 90 mcg/actuation (Ventolin HFA) 2 puffs inhalation Q4-6H PRN atorvastatin 20 mg PO DAILY@1930 fluticasone propion-salmeterol 250-50 mcg/dose (Wixela Inhub) 1 inh inhalation BID 30 days furosemide 20 mg PO DAILY PRN glipizide ER 5 mg (1/2 x 10 mg) PO DAILY@0815 insulin glargine (Basaglar KwikPen U-100 Insulin) 10 units (0.1 mL) subcut BEDTIME lisinopril 5 mg PO DAILY@0815 metoprolol tartrate 25 mg PO BID montelukast 10 mg PO BEDTIME nystatin topical DAILY pen needle, diabetic check glucose 4 times daily quetiapine 50 mg PO BID sertraline 50 mg PO DAILY silver sulfadiazine 1% 1 appl topical DAILY PRN warfarin See Protocol 5 mg orally 7.5mg x 2 day/ 5mg x 5 days; Nursing Note INR: 3.5 in therapeutic range Medications and supplements reviewed- Pt quetiapine dose was incresed 2 weeks ago and can raise his INR - previous INR was 4.1 - fed him a significant amt of greens almost daily. will decrease warfarin dose and monitor INR q 2 weeks Noticable decline in pt mentation and ability to communicate since last time seen by this RN - states he becomes agitated as the afternoon and evening approaches- enc hydration or snack or a nap and to assess for any pain, she stated that is why the med was increased Denies any signs and symptoms of bleeding or bruising or clotting. Bleeding, bruising, clotting discussed Nutritional guidance given - keep eating a mix of fruits and vegetables you enjoy and can balance your INR with - review the food list during season changes Dose: decrease dose to 5mg daily next week F/U INR: 2 weeks Patient and verbalizes understanding of instructions given with accurate read back Anti-Coag Initial Assessment Social Hx Patient Tobacco Use Status: Former Tobacco user Coding Level of Care Code Est Patient Level 1 Diagnoses Current use of anticoagulant therapy Z79.01 Results AMB INR Fingerstick AMB INR Fingerstick 3.5 Last Edit by Lizzie Rouse RN on 08/28/24 11:38 MANUAL ENTRY Assessment & Plan Assessment & Plan (1) Current use of anticoagulant therapy: Code(s): Z79.01 - 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
== END 2024-08-28 11:49 | disposition home or self-care (01) ==
LOC: HO.ACS 11:25
PROVIDERS: PCP Internal Medicine; Visit Provider Internal Medicine Medical Oncology
DX: Z79.01 Long term (current) use of anticoagulants (principal)

== ENCOUNTER 2024-09-11 09:26 | Outpatient (AMB) | payer MEDICARE, SELFPAY ==
[2024-09-11 09:34] LABS: Prothrombin Time Whole Bld POC 28.3 sec (11.1-13.5); ~PT, ~INR - Anti Coag Clinic 2.4 (0.9-1.1)
--- NOTE | 2024-09-11 09:42 | MHC.OFFVISCO ---
Intake Intake Visit Reasons: Anticoagulation Allergies metformin Adverse Reaction (Intermediate, Verified 09/11/24 09:27) Stomach Upset Medication List - Last Reconciled 09/11/24 by Lizzie Rouse RN acetaminophen 1,000 mg PO DAILY PRN albuterol sulfate 90 mcg/actuation (Ventolin HFA) 2 puffs inhalation Q4-6H PRN atorvastatin 20 mg PO DAILY@1930 fluticasone propion-salmeterol 250-50 mcg/dose (Wixela Inhub) 1 inh inhalation BID 30 days furosemide 20 mg PO DAILY PRN glipizide ER 5 mg (1/2 x 10 mg) PO DAILY@0815 insulin glargine (Basaglar KwikPen U-100 Insulin) 10 units (0.1 mL) subcut BEDTIME lisinopril 5 mg PO DAILY@0815 metoprolol tartrate 25 mg PO BID montelukast 10 mg PO BEDTIME nystatin topical DAILY pen needle, diabetic check glucose 4 times daily quetiapine 50 mg PO BID sertraline 50 mg PO DAILY silver sulfadiazine 1% 1 appl topical DAILY PRN warfarin See Protocol 5 mg orally 7.5mg x 2 day/ 5mg x 5 days; Nursing Note INR 2.4 out of therapeutic range 2.5-3.5 Medications and supplements reviewed Patient status: missed a dose last week Medications or supplements: sertraline and queitapine both were increased about 2 weeks ago- the warfarin dose was decreased 2 weeks ago Diet: good Denies any signs and symptoms of bleeding or clotting or unusual bruising Bleeding, bruising, clotting discussed Nutritional guidance given: avoid greens today Dose: booster dose today 7.5mg today then 5mg daily F/U INR Date : 2 weeks - prefers tuesday?? Patient verbalizing understanding of instructions given. 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
== END 2024-09-11 09:46 | disposition home or self-care (01) ==
LOC: HO.ACS 09:26
PROVIDERS: PCP Internal Medicine; Visit Provider Internal Medicine Medical Oncology
DX: Z79.01 Long term (current) use of anticoagulants (principal)

== ENCOUNTER → 2024-09-11 09:26 | Outpatient (BNVA) | payer MEDICARE, SELFPAY | PROVIDERS: PCP Internal Medicine; Visit Provider Internal Medicine Medical Oncology | DX: Z95.2 Presence of prosthetic heart valve (principal); Z79.01 Long term (current) use of anticoagulants; Z51.81 Encounter for therapeutic drug level monitoring | CPT/HCPCS: 85610; 99211 ==

== ENCOUNTER 2024-09-17 08:57 | Outpatient (AMB) | payer MEDICARE, SELFPAY ==
[2024-09-17 08:59] VITALS: BP 100/60; PULSE 61; TEMP 36.6; O2SAT 99; BMI 38.9
--- NOTE | 2024-09-17 08:59 | MHC.PC.OV ---
Vital Signs 09/17/24 08:59 Height 5 ft 10 in Weight 271 lb BMI 38.9 BP 100/60 Blood Pressure Location Lt brachial Position Sitting Pulse 61 Pulse Source Pulse Oximeter Temp 97.9 F Temp Source Axillary Pulse Oximetry (%) 99 Oxygen Delivery Method Room Air Intake Visit Reasons: Routine Hand Icer Required: No Accompanied by: Self / Same As Patient Allergies metformin Adverse Reaction (Intermediate, Verified 09/17/24 08:59) Stomach Upset Tobacco use date assessed: 09/17/24 Fall risk assessment: 1 Fall in past year (pt had 5 fall in the past 5 months, but he didn't get hurt. ) Last assessed Fall Risk: 09/17/24 Dental Screening Dental Screen Date: 09/17/24 Did you have a dental visit in the last 12 months?: Yes Did you have a dental problem in the last 6 months where you did not have access to dental care?: No [facility] Medical History (Updated 09/17/24 @ 09:52 by Oscar Cruz MD) Dementia Morbid obesity Cough Asthma-COPD overlap syndrome Steroid dependence COPD (chronic obstructive pulmonary disease) Eosinophilic asthma Family History (Updated 09/17/24 @ 09:24 by Halle Mcconnell MA) Mother No problems noted. Father No problems noted. Social History Household Members: Spouse Housing: House Do you presently have visiting nurse or other home services: No Patient Tobacco Use Status: Former Tobacco user e-Cigarette/Vaping Use: Former Use service: No Current occupational status: retired Current occupational exposures/hazards: No Cognitive needs: Yes (cane) Hearing needs: No Vision needs: Yes (marcella higgins) Questionnaire PHQ-9 Over the last 2 weeks, how often have you been bothered by any of the following problems? 1. Little interest or pleasure in doing things: not at all 2. Feeling down, depressed, or hopeless: several days (pt get anxious because he has dementia. ) 3. Trouble falling or staying asleep, or sleeping too much: not at all 4. Feeling tired or having little energy: not at all 5. Poor appetite or overeating: not at all 6. Feeling bad about yourself - or that you are a failure or have let yourself or your family down: not at all 7. Trouble concentrating on things, such as reading the newspaper or watching television: not at all 8. Moving or speaking so slowly that other people could have noticed. Or the opposite - being so fidgety or restless that you have been moving around a lot more than usual: not at all 9. Thoughts that you would be better off or of hurting yourself in some way: not at all Total score: 1 Depression Screening Interpretation: Negative Depression Screening Done: Yes Source: Developed by Drs. Irwin Pena, Gaby Palomino, Jeffrey Scott and colleagues, with an educational nacho from [employer]. Thrive Questionnaire Date Thrive assessed: 09/17/24 I am a: Patient Within the past 12 months, did the food you bought not last and you didn't have the money to get more?: Never true Within the past 12 months, did you worry whether your food would run out before you got money to buy more?: Never true Do you have trouble paying for medicines?: No Do you have trouble getting transportation to medical appointments?: No Do you have trouble paying your heating and electricity bill?: No Do you have trouble taking care of your child, family member or friend?: No Do you have trouble with day-to-day activities such as bathing, preparing meals, shopping, managing finances, etc.?: No Are you currently unemployed and looking for a job?: No Are you interested in more education?: No Currently or been in a relationship where the following occur: No concerns reported THRIVE Score: 0 AUDIT C Alcohol Use Questionnaire (AUDIT-C) 1. How often do you have a drink containing alcohol?: Never 3. How often do you have six or more drinks on one occasion?: Never Total Score: 0 GRECIA-7 AMB Questionnaire GRECIA-7 Date GRECIA - 7 assessed: 09/17/24 Feeling nervous, anxious, or on edge: 1 = Several days Not being able to stop or control worryin = Not at all Worrying too much about different things: 0 = Not at all Trouble relaxin = Not at all Being so restless that it is hard to sit still: 0 = Not at all Becoming easily annoyed or irritable: 0 = Not at all Feeling afraid as if something awful might happen: 0 = Not at all Total GRECIA-7 score (0-4 normal; 5-9 mild; 10-14 moderate; 15-21 severe): 1 Source: Developed by Drs. Irwin Pena, Gaby Palomino, Jeffrey Scott and colleagues, with an educational nacho from [employer]. Physical exam (Primary Care) Vital Signs: Last Vital Signs Temp 97.9 F 09/17/24 08:59 Pulse 61 09/17/24 08:59 BP 100/60 09/17/24 08:59 Pulse Ox 99 09/17/24 08:59 Oxygen Delivery Method Room Air 09/17/24 08:59 BMI result Body Mass Index 38.9 Tobacco/Smoking Status: Tobacco use Status Tobacco use date assessed 09/17/24 09/17/24 09:01 Patient Tobacco Use Status Former Tobacco user 09/17/24 09:01 e-Cigarette/Vaping Use Former Use 09/17/24 09:01 PHQ-9: PHQ-9 Score PHQ-9: Total score 1 09/17/24 09:27 Depression Screening Interpretation: Negative Thrive Assessment: Date of Thrive Assessment Date Thrive assessed 09/17/24 09/17/24 09:01 Currently or been in a relationship where the following occur: No concerns reported Advance Care Planning discussion: Exists, not on file Date of discussion: 09/17/24 Who was present: Pt, , daughter Forms completed: Health Care Proxy and MOLST Actual minutes spent: 5 Coding Level of Care Code New Pt Level 4 (79226) Complex EM visit Add On G2211 Diagnoses Diabetes type 2 E11.9 Gait disorder R26.9 Dementia F03.90 COPD (chronic obstructive pulmonary disease) J44.9 Additional Codes Vital Signs *Quality* - Advance Care Planning discussion: Exists, not on file ([id number]) Assessment & Plan Assessment & Plan (1) Diabetes type 2: Code(s): E11.9 - Type 2 diabetes mellitus without complications Category: Medical Plan: Blood sugars revd. Patient does have sugars in the 200's in the evening. A1c ordered. No change in dosages for now to prevent hypoglycemia (2) Gait disorder: Code(s): R26.9 - Unspecified abnormalities of gait and mobility Plan: PT ordered. (3) Dementia: Code(s): F03.90 - Unspecified dementia, unspecified severity, without behavioral disturbance, psychotic disturbance, mood disturbance, and anxiety Category: Medical Plan: Patient has advanced dementia. Needs constant supervision. Haloperidol added to evening regimen to counter evening agitiation (4) COPD (chronic obstructive pulmonary disease): Comment: EVIDENCE OF COPD SINCE 2005 WHEN HE HAD PULMONARY FUNCTION TEST HERE AT [facility]. NOTED ABOVE HE HAS A ASTHMA/COPD OVERLAP SYNDROME. HIS CURRENT PULMONARY FUNCTION TEST, DOES NOT SHOW MUCH OBSTRUCTIVE COMPONENT, BUT SHOWS MODERATE DEGREE OF RESTRICTIVE DISORDER, WHICH IS RELATED TO HIS GROSS OBESITY. TX : SYMBICORT 160-4.5 2 PUFFS BID OR AN EQUIVALENT AGENT MONTELUKAST 10 MG DAILY ALBUTEROL HFA 2 PUFFS Q 6 HRS PRN Code(s): J44.9 - Chronic obstructive pulmonary disease, unspecified Category: Medical Plan: History of Present Illness - The patient is a 74-year-old male presenting for management of chronic conditions. - Diabetes Mellitus: Reports high blood sugars occasionally occurring over 250 due to fear of hypoglycemic episodes, managed without insulin administration as blood sugar levels self-regulate without postprandial dip. - COPD: Maintained with Symbicort and Duluxella with reported stable dyspnea, allowing walking within home and localized outdoor walking activities. - Dementia and Parkinsonism: Cognitive challenges include failure to recognize family members, confusion, anxiety, and agitation. Previous emergency session involvement due to hypoglycemia and past open-heart surgery affects nighttime sleeping posture. - Hypertension: Stable on current medication, Lisinopril, with requested refills. - Anxiety: Regular episodes with peak agitation during late afternoon hours, unresponsive to current therapeutic regimen, indicating possible need for medication adjustment. Social History - Former employment with [employer]. - Has a daughter who is present during visits. - Ambulates within home and localized outdoor areas. - Sleeps in a chair [id number] surgery. - Has a living will and designated healthcare proxy. - Resides ten minutes from former workplace in [place]. Review of Systems - Neurological: Reports forgetfulness, occasional agitation. - Respiratory: Denies need for supplemental oxygen; reports stable exertional dyspnea. - Endocrine: Reports occasional high blood sugars; denies frequent hypoglycemia. - Psychiatric: Reports episodes of anxiety, particularly in the afternoon. Physical Exam General: Cooperative and healthy appearing Nutritional Appearance: Well nourished Orientation/consciousness: Patient oriented x3 Limitations: No limitations Head: Normal to inspection General: Appearance normal, both eyes and all related structures Neck: Normal visual inspection Chest: Normal palpation of entire chest wall Respiratory: Stable with COPD, no oxygen needed. ormal respiratory effort Neurology: Patient oriented x3, diagnosed with Lewy body dementia and Parkinson's as secondary. Results - Labs: Hemoglobin A1c previously recorded at 6.4% in March. Plan 1. Diabetes Mellitus - Continue current monitoring and repeat hemoglobin A1c. - Avoid insulin at night if not eating post-7 PM to prevent hypoglycemia. 2. Chronic Obstructive Pulmonary Disease - Continue inhaler therapy with Symbicort and Duluxella. - Encourage ambulation within comfort zones. 3. Lewy Body Dementia - Continue Seroquel and sertraline. - Monitor anxiety and agitation patterns. 4. Parkinson?s Disease - Continue supportive therapy. - Discuss further therapy options with a neurologist. 5. Hypertension - Maintain Lisinopril; renew prescription. - Regular blood pressure monitoring recommended. 6. Anxiety Disorder - Trial Haloperidol for episodes of increased agitation around 3 PM. - Evaluate and adjust as needed. Discussion Notes I discussed with the patient and his daughter the management plan for his chronic conditions along with necessary prescriptions and refills, ensuring clarity on managing diabetes and COPD to maintain stability. Regarding his neurocognitive issues, we reviewed his current medications for Lewy Body Dementia and Parkinson's Disease, agreeing to monitor symptoms and seizure activity closely. For anxiety, we decided to trial Haloperidol, explaining its purpose as a preventive measure for known peak agitation times. We outlined the value of continued physical therapy for gait improvement and the potential use of occupational therapy tools at home, pending therapy feedback. We addressed his healthcare proxy and discussed further medical directives if necessary. I will see him again in three months or as needed, based on symptom evolution. Patient Instructions - Monitor blood sugar as instructed and avoid insulin at night if you skip meals post-7 PM. - Take medications as prescribed and monitor blood pressure regularly. - Use inhaler as directed and maintain routine activities that are comfortable. - Trial Haloperidol in the afternoon for anxiety episodes, as discussed. - Attend physical therapy sessions for gait improvement. - Follow up in three months or if symptoms change. Orders: Orders Liver Panel Today E11.9 - Type 2 diabetes mellitus without complications Basic Metabolic Panel Today E11.9 - Type 2 diabetes mellitus without complications PT Evaluation and Treatment Today R26.9 - Unspecified abnormalities of gait and mobility Complete Blood Count no Diff Today E11.9 - Type 2 diabetes mellitus without complications Microalbumin, Random (w Creat) Today E11.9 - Type 2 diabetes mellitus without complications Lipid Panel Today E11.9 - Type 2 diabetes mellitus without complications Lipase Today E11.9 - Type 2 diabetes mellitus without complications, K85.90 - Acute pancreatitis without necrosis or infection, unspecified UA and rflx microscopic Today E11.9 - Type 2 diabetes mellitus without complications Thyroid Stimulating Hormone Today E11.9 - Type 2 diabetes mellitus without complications Hemoglobin A1c Today E11.9 - Type 2 diabetes mellitus without complications Medications: New lisinopril 5 mg PO DAILY@0815 90 tabs 1RF haloperidol 0.5 mg PO BEDTIME 14 tabs 0RF
== END 2024-09-17 09:48 | disposition home or self-care (01) ==
LOC: HO.HMCHD 08:58
PROVIDERS: PCP Internal Medicine; Visit Provider Internal Medicine
DX: E11.9 Type 2 diabetes mellitus without complications (principal); R26.9 Unspecified abnormalities of gait and mobility; F03.90 Unspecified dementia, unspecified severity, without behavioral disturbance, psychotic disturbance, mood disturbance, and anxiety; J44.9 Chronic obstructive pulmonary disease, unspecified; Z00.00 Encounter for general adult medical examination without abnormal findings

== ENCOUNTER → 2024-09-17 08:57 | Outpatient (BNVA) | payer MEDICARE, SELFPAY | PROVIDERS: PCP Internal Medicine; Visit Provider Internal Medicine | DX: Z13.89 Encounter for screening for other disorder (principal) | CPT/HCPCS: 99202 ==

== ENCOUNTER 2024-09-17 09:53 | Outpatient (REF) | payer MEDICARE, SELFPAY ==
[2024-09-17 12:25] LABS: Hematocrit 34.3 % (42.0-52.0); Hemoglobin 11.8 g/dl (14.0-18.0); Mean Corpuscular HGB Conc 34.4 g/dl (31.0-36.0); Mean Corpuscular Hemoglobin 34.4 pg (27.0-33.0); Mean Platelet Volume 10.9 fL (9.4-12.4); Platelet Count 141 X10*3/uL (160-400); Red Blood Count 3.43 X10*6/uL (4.60-5.80); Red Cell Distribution Width 14.2 % (11.0-16.0); White Blood Count 7.5 X10*3/uL (4.8-10.8)
[2024-09-17 12:42] LABS: Estimated Average Glucose 137 mg/dL; Hemoglobin A1c % 6.4 % (<6.0)
[2024-09-17 12:47] LABS: Creatinine Urine 43.19 mg/dL; Microalbum/Creatinine Ratio Ur 90.2 ug/mg cr (<30)
[2024-09-17 12:56] LABS: Appearance Urine Clear; Color Urine Yellow; Glucose Urine UA Negative (Negative); Leukocyte Esterase Urine Negative (Negative); Nitrite Urine Negative (Negative); Urine Blood Negative (Negative); Urine Ketones Negative (Negative); Urine Protein Negative (Neg-Trace)
[2024-09-17 13:08] LABS: Alanine Aminotransferase 26 U/L (0-40); Albumin Level 4.4 g/dL (3.5-5.0); Alkaline Phosphatase 158 U/L (39-117); Anion Gap 12 (12-20); Aspartate Amino Transferase 34 U/L (5-37); Bilirubin Direct 0.2 mg/dL (0.0-0.5); Bilirubin Total 0.7 mg/dL (0.0-1.0); Blood Urea Nitrogen 24 mg/dL (9-16); Calcium 9.2 mg/dL (8.4-10.2); Carbon Dioxide 24 mmol/L (22-29); Chloride 109 mmol/L (96-108); Cholesterol 112 mg/dL (<200); Estimated Glomerular Filt Rate 53; Glucose Random 77 mg/dL (60-115); HDL Cholesterol 39 mg/dL (>40); LDL Cholesterol Calculated 59 mg/dL (<100); Lipase 22 U/L (8-78); Potassium 5.2 mmol/L (3.3-5.1); Sodium 140 mmol/L (135-145); Thyroid Stimulating Hormone 1.91 uIU/mL (0.32-4.0); Total Protein 7.7 g/dL (6.5-8.0); Triglycerides 72 mg/dL (<150)
== END 2024-09-17 09:54 | disposition home or self-care (01) ==
LOC: HO.10HDL 09:53
PROVIDERS: Visit Provider Internal Medicine
DX: K85.90 Acute pancreatitis without necrosis or infection, unspecified (principal); E11.9 Type 2 diabetes mellitus without complications
CPT/HCPCS: 36415; 80048; 80061; 80076; 81003; 82043; 82570; 83036; 83690; 84443; 85027; 99202

== ENCOUNTER 2024-09-26 09:21 | Outpatient (AMB) | payer MEDICARE, SELFPAY ==
[2024-09-26 09:32] LABS: Prothrombin Time Whole Bld POC 39.3 sec (11.1-13.5); ~PT, ~INR - Anti Coag Clinic 3.3 (0.9-1.1)
--- NOTE | 2024-09-26 09:41 | MHC.OFFVISCO ---
Intake Intake Visit Reasons: Anticoagulation Allergies metformin Adverse Reaction (Intermediate, Verified 09/26/24 09:26) Stomach Upset Medication List - Last Reconciled 09/26/24 by Nabila Haywood, RN acetaminophen 1,000 mg PO DAILY PRN atorvastatin 20 mg PO DAILY@1930 fluticasone propion-salmeterol 250-50 mcg/dose (Wixela Inhub) 1 inh inhalation BID 30 days glipizide ER 5 mg (1/2 x 10 mg) PO DAILY@0815 haloperidol 0.5 mg PO BEDTIME insulin glargine (Basaglar KwikPen U-100 Insulin) 10 units (0.1 mL) subcut BEDTIME lisinopril 5 mg PO DAILY@0815 metoprolol tartrate 25 mg PO BID montelukast 10 mg PO BEDTIME nystatin topical DAILY pen needle, diabetic check glucose 4 times daily quetiapine 50 mg PO BID sertraline 50 mg PO DAILY silver sulfadiazine 1% 1 appl topical DAILY PRN warfarin See Protocol 5 mg TABLET 1-2 TABS PER INR - CURRENT DOSE 5MG DAILY Nursing Note NO CP,SOB,DIET/MED CHANGES,FALLS OR SX OF BLEEDING. CONTINUE PRESERNT DOSE AND FOLLOW-UP IN 3 WEEKS VERB.GOOD UNDERSTANDING OF DOSING INSTR. Anti-Coag Initial Assessment Social Hx Patient Tobacco Use Status: Former Tobacco user Coding Level of Care Code Est Patient Level 1 Diagnoses Current use of anticoagulant therapy Z79.01 Assessment & Plan Assessment & Plan (1) Current use of anticoagulant therapy: Code(s): Z79.01 - skilled nursing (current) use of anticoagulants Category: Medical
== END 2024-09-26 09:47 | disposition home or self-care (01) ==
LOC: HO.ACS 09:21
PROVIDERS: PCP Internal Medicine; Visit Provider Internal Medicine Medical Oncology
DX: Z79.01 Long term (current) use of anticoagulants (principal)

== ENCOUNTER → 2024-09-26 09:21 | Outpatient (BNVA) | payer MEDICARE, SELFPAY | PROVIDERS: PCP Internal Medicine; Visit Provider Internal Medicine Medical Oncology | DX: Z95.2 Presence of prosthetic heart valve (principal); Z79.01 Long term (current) use of anticoagulants; Z51.81 Encounter for therapeutic drug level monitoring | CPT/HCPCS: 85610; 99211 ==

== ENCOUNTER 2024-10-17 09:17 | Outpatient (AMB) | payer MEDICARE, SELFPAY ==
--- NOTE | 2024-10-17 09:24 | MHC.OFFVISCO ---
Intake Intake Visit Reasons: Anticoagulation Allergies metformin Adverse Reaction (Intermediate, Verified 10/17/24 09:18) Stomach Upset Medication List - Last Reconciled 10/17/24 by Sheri Toney RN acetaminophen 1,000 mg PO DAILY PRN atorvastatin 20 mg PO DAILY@1930 fluticasone propion-salmeterol 250-50 mcg/dose (Wixela Inhub) 1 inh inhalation BID 30 days glipizide ER 5 mg (1/2 x 10 mg) PO DAILY@0815 haloperidol 0.5 mg PO BEDTIME insulin glargine (Basaglar KwikPen U-100 Insulin) 10 units (0.1 mL) subcut BEDTIME lisinopril 5 mg PO DAILY@0815 metoprolol tartrate 25 mg PO BID montelukast 10 mg PO BEDTIME nystatin topical DAILY pen needle, diabetic check glucose 4 times daily quetiapine 50 mg PO BID sertraline 50 mg PO DAILY silver sulfadiazine 1% 1 appl topical DAILY PRN warfarin See Protocol 5 mg TABLET 1-2 TABS PER INR - CURRENT DOSE 5MG DAILY Nursing Note INR 4.0-?? out of therapeutic range of 2.5-3.5 Medications and supplements reviewed Patient status: no c.o Medications or supplements: haloperidol prn- no interaction with warfarin per micromedex, pt has not started yet Diet: good appetite- food list discussed with pt spouse Denies any signs and symptoms of bleeding or clotting or unusual bruising Bleeding, bruising, clotting discussed Nutritional guidance given: eat greens to lower, no reds for 2-3 days Dose: reduce dose today to 2.5mg then cont 5mg x 7 F/U INR Date : 2 weeks? Patient verbalizing understanding of instructions given. Anti-Coag Initial Assessment Social Hx Patient Tobacco Use Status: Former Tobacco user Coding Level of Care Code Est Patient Level 1 Diagnoses Current use of anticoagulant therapy Z79.01 Results AMB INR Fingerstick AMB INR Fingerstick 4.0 Last Edit by Sheri Toney RN on 10/17/24 09:27 interface delay Assessment & Plan Assessment & Plan (1) Current use of anticoagulant therapy: Code(s): Z79.01 - half-way (current) use of anticoagulants Category: Medical
--- OUTSIDE RECORDS SUMMARY | 2024-10-17 09:27 | XMS_ITS | Patient Health Record ---
Author Organization [facility] Address [address] [place] [address] Care Team Providers Care Financial Reporting Advisor Name Role Phone Jaden Nicole MD Primary Care Provider Tyrese Reyes Jr Unavailable Reason For Referral No Information Medications Medication SIG (Take, Route, Frequency, Duration) Notes Start Date End Date Status Aspir-81 81 MG 1 tablet Orally Once a day Active Metoprolol Succinate ER 25 MG 1 tablet Orally twice a day Active Lisinopril 5 MG 1 tablet Orally Once a day Active glipiZIDE ER 5 MG 1 tablet Orally twic e a day Active Atorvastatin Calcium 20 MG 1 tablet Oral ly Once a day Active Warfarin Sodium 7.5 MG 1 tablet alt betw een 7.5mg and 5 mg Orally Once a day Active Colyte with Flavor Packs 240 GM As directed Orally Over the specified time. for 1 day(s) 10/30/2014 Active Immunizations Vaccine Route Administration Date Status Comme nts Flu vaccine no Preserv 3 and > Unknown 12/26/2013 Admin istered Problems Problem Type SNOMED Code ICD Code Onset Dates Problem Status W/U Status Risk Notes Problem [id number] Screening for co cammie cancer (V76.51) Active confirmed Problem [id number] Long-term (curre nt) use of anticoagulants (V58.61) Active confirmed Plan Of Treatment Future Test Test Name Order Date COLONOSCOPY 10/30/2014 Insurance Providers Payer Name Payer Address Payer Phone Subscriber Number Group Number Insured Name Patient Relationship to Insured Coverage Start Date Coverage End Date MEDIC[place] OF [place] [address] [place] [address] [id number] SHAMEKA MCCRAY Self - patient is the insured [facility] [address] [place] [address] [id number] SHAMEKA MCCRAY Self - patient is the insured Medical (General) History Medical History History ICD Code 02/08/2004 colonoscopoy hypertension elevated blood sugar aortic stenosis sleep apnea Surgical History Surgery Date(Month/Year) umbilical hernia repair aortic valve replacement, [facility] Medic al valve October 2004 coronary artery bypass open heart surgery cardiac pacemeker 2011
[2024-10-17 12:42] LABS: Prothrombin Time Whole Bld POC 47.8 sec (11.1-13.5); ~PT, ~INR - Anti Coag Clinic 4.0 (0.9-1.1)
== END 2024-10-17 09:36 | disposition home or self-care (01) ==
LOC: HO.ACS 09:17
PROVIDERS: PCP Internal Medicine; Visit Provider Internal Medicine Medical Oncology
DX: Z79.01 Long term (current) use of anticoagulants (principal)

== ENCOUNTER → 2024-10-17 09:17 | Outpatient (BNVA) | payer MEDICARE, SELFPAY | PROVIDERS: PCP Internal Medicine; Visit Provider Internal Medicine Medical Oncology | DX: Z95.2 Presence of prosthetic heart valve (principal); Z79.01 Long term (current) use of anticoagulants; Z51.81 Encounter for therapeutic drug level monitoring | CPT/HCPCS: 85610; 99211 ==

== ENCOUNTER 2024-10-31 09:36 | Outpatient (AMB) | payer MEDICARE, SELFPAY ==
--- NOTE | 2024-10-31 09:54 | MHC.OFFVIS ---
Intake Visit Reasons: 3m Allergies metformin Adverse Reaction (Intermediate, Verified 10/17/24 09:18) Stomach Upset Medication List - Last Reconciled 10/31/24 by Rui Hidalgo MD acetaminophen 1,000 mg PO DAILY PRN atorvastatin 20 mg PO DAILY@1930 fluticasone propion-salmeterol 250-50 mcg/dose (Wixela Inhub) 1 inh inhalation BID 30 days furosemide 20 mg PO DAILY glipizide ER 5 mg (1/2 x 10 mg) PO DAILY@0815 haloperidol 0.5 mg PO BEDTIME insulin glargine (Basaglar KwikPen U-100 Insulin) 10 units (0.1 mL) subcut BEDTIME losartan 25 mg PO DAILY metoprolol tartrate 25 mg PO BID montelukast 10 mg PO BEDTIME nystatin topical DAILY pen needle, diabetic check glucose 4 times daily quetiapine 50 mg PO BID sertraline 50 mg PO DAILY silver sulfadiazine 1% 1 appl topical DAILY PRN warfarin See Protocol 5 mg TABLET 1-2 TABS PER INR - CURRENT DOSE 5MG DAILY HPI Comments Details: 74 years old man with history of aortic valve replacement, COPD, diabetes, and hypertension suffers from dementia probably dementia with Lewy body disease with mild parkinsonism, cognitive issues and behavioral disorder including paranoia, delusions, and hallucinations. Sleep was better with quetiapine and was happy. He was pacing during daytime. He continues to have hallucinations. One day he sat on a chair that was not there and fell. Mood was not good. [facility] Medical History (Updated 10/31/24 @ 10:09 by Rui Hidalgo MD) Parkinsonism, secondary Dementia with Lewy bodies Cerebral microvascular disease Cerebral atrophy Dementia Morbid obesity Cough Asthma-COPD overlap syndrome Steroid dependence COPD (chronic obstructive pulmonary disease) Eosinophilic asthma Surgical History (Updated 10/29/24 @ 09:07 by Susie Rivera MA) S/P cardiac pacemaker procedure Family History (Updated 09/17/24 @ 09:24 by Halle Mcconnell MA) Mother No problems noted. Father No problems noted. Social History Household Members: Spouse Housing: House Do you presently have visiting nurse or other home services: No Patient Tobacco Use Status: Former Tobacco user e-Cigarette/Vaping Use: Former Use service: No Current occupational status: retired Current occupational exposures/hazards: No Cognitive needs: Yes (cane) Hearing needs: No Vision needs: Yes (rx galdesire) Review of Systems Const Details: Constitutional:?No fever, chills, fatigue, weight loss, or night sweats. HEENT:?No headache, vision changes, hearing loss, nasal congestion, sore throat. Neurological:? Forgetfulness, hallucinations and delusions. Psychiatric:?No anxiety, depression, mood swings, sleep disturbance, or hallucinations. Endocrine:?No heat/cold intolerance, polydipsia, polyuria, or hair/skin changes. Hematologic/Lymphatic:?No easy bruising, bleeding, or lymphadenopathy. Integumentary (Skin):?No rash, lesions, itching, or color changes. ? Physical Exam Neuro Other: Mental Status: Alert and awake with normal speech and fluency. Comprehension was ok Cranial Nerves: CN II: Visual swanson full to confrontation, visual acuity intact. CN III, IV, : Pupils equal, round, reactive to light and accommodation. Extraocular movements are normal. CN V: Facial sensation is normal. CN VII: Facial movements symmetrical. CN VIII: Hearing intact to bedside conversation is normal. CN IX, X: Palate elevates symmetrically. CN XI: Shoulder shrug and head turn symmetrical. CN XII: Tongue midline without atrophy or fasciculations. Extrapyramidal: Full facial expressions and blinking. No rigidity. Movements are appropriate with no tremor or abnormality. Speech: Normal; no dysarthria or tremor. Assessment & Plan Assessment & Plan (1) Dementia with Lewy bodies: Code(s): G31.83 - Neurocognitive disorder with Lewy bodies; F02.80 - Dementia in other diseases classified elsewhere, unspecified severity, without behavioral disturbance, psychotic disturbance, mood disturbance, and anxiety Category: Medical Qualifiers: Dementia severity: severe Dementia behavioral or psychological symptom: without behavioral, psychotic, or mood disturbance or anxiety Qualified Code(s): G31.83 - Neurocognitive disorder with Lewy bodies; F02.C0 - Dementia in other diseases classified elsewhere, severe, without behavioral disturbance, psychotic disturbance, mood disturbance, and anxiety Plan Impression: Severe dementia probably of dementia with Lewy bodies type Rec: a: Sertraline 50mg one a day b: Quetiapine 50mg in afternoon and night time c: I also talked to his that this was probably the time that, if it was an option, he should be in an assisted living facility or [facility]p. Otherwise, she would require help at home. He has fallen twice already in she has call for ambulance. I advised her to discuss the whole issue with a children and make this to see in his family. Medications: New sertraline 50 mg PO DAILY 90 tabs 0RF Changed From quetiapine 50 mg PO BID To quetiapine 50 mg orally afternoon and bedtime; 180 tabs 0RF Coding Level of Care Code Est Pt Level 4 (50143) Diagnoses Severe Lewy body dementia without behavioral disturbance, psychotic disturbance, mood disturbance, or anxiety G31.83; F02.C0 Dementia severity: severe Dementia behavioral or psychological symptom: without behavioral, psychotic, or mood disturbance or anxiety
--- OUTSIDE RECORDS SUMMARY | 2024-10-31 10:08 | XMS_ITS | Patient Health Record ---
Author Organization [facility] Address [address] [place] [address] Care Team Providers Care Information Engineer Name Role Phone Bonnie (RETIRED) Jaden CHERRY Primary Care Provide r Tyrese Dejesus Jr Unavailable [phone] Reason For Referral No Information Medications Medication [...] Problem Status W/U Status Risk Notes Problem [id number] Screening for co cammie cancer (V76.51) Active confirmed Problem [id number] Long-term (curre nt) use of anticoagulants (V58.61) Active confirmed Plan Of Treatment Future Test Test Name Order Date COLONOSCOPY 10/30/2014 Insurance Providers Payer Name Payer Address Payer Phone Subscriber Number Group Number Insured Name Patient Relationship to Insured Coverage Start Date Coverage End Date MED[place]ARE [place] [address] [place] [address] [id number] SHAMEKA MCCRAY Self - patient is the insured [facility] [address] [place] [address] [id number] SHAMEKA MCCRAY Self - patient is the insured Medical (General) History Medical History History ICD Code 02/08/2004 colonoscopoy hypertension elevated blood sugar aortic stenosis sleep apnea Surgical History Surgery Date(Month/Year) umbilical hernia repair aortic valve replacement, [facility] valve October 2004 coronary artery bypass open heart surgery cardiac pacemeker 2011
== END 2024-10-31 10:21 | disposition home or self-care (01) ==
LOC: HO.HSM 09:37
PROVIDERS: PCP Internal Medicine; Visit Provider Psychiatry & Neurology Neurology
DX: G31.83 Neurocognitive disorder with Lewy bodies (principal); F02.C0 Dementia in other diseases classified elsewhere, severe, without behavioral disturbance, psychotic disturbance, mood disturbance, and anxiety
CPT/HCPCS: 99214

== ENCOUNTER → 2024-10-31 09:36 | Outpatient (BNVA) | payer MEDICARE, SELFPAY | PROVIDERS: PCP Internal Medicine; Visit Provider Psychiatry & Neurology Neurology | DX: G31.83 Neurocognitive disorder with Lewy bodies (principal); F02.C0 Dementia in other diseases classified elsewhere, severe, without behavioral disturbance, psychotic disturbance, mood disturbance, and anxiety | CPT/HCPCS: 99212 ==

== ENCOUNTER 2024-11-09 07:30 | Outpatient (REF) | payer MEDICARE, SELFPAY ==
--- OUTSIDE RECORDS SUMMARY | 2024-11-09 07:34 | XMS_ITS | Clinical Summary ---
Author Organization [facility] Address [address] [address] Phone Care Team Providers Care Mine Manager Name Role Phone Oscar Cruz MD Primary Care Provid er Allergies Active Allergy Reactions Criticality Noted Date Comments Metformin 08/06/2024 Medications VENTOLIN HFA 90 mcg/actuation inhaler INHALE 2 PUFF INHALED EVERY 4 TO 6 HOURS NEEDED FOR SHORTNESS OF BREATH OR WHEEZING FOR 30 DAYS 4 Active atorvastatin (LIPITOR) 20 MG tablet Take 1 tablet by mouth every morning. 4 Active WIXELA INHUB 500-50 mcg/dose DISKUS Inhale 2 puffs into the lungs 2 (two) times a day. 4 Active glipiZIDE (GLUCOTROL XL) 10 MG 24 hr tablet Take 5 mg by mouth 2 (two) times a day. 3 Active losartan (COZAAR) 25 MG tablet TAKE 1 TABLET ORALLY DAILY FOR HYPERTENSION FOR 30 DAYS 3 Active metoprolol tartrate (LOPRESSOR) 25 MG tablet Take 1 tablet by mouth 2 (two) times a day. 3 Active montelukast (SINGULAIR) 10 mg tablet TAKE 1 TABLET BY MOUTH AT BEDTIME FOR ASTHMA 3 Active warfarin (COUMADIN) 5 MG tablet 4 Active furosemide (LASIX) 20 MG tablet Take 20 mg by mouth. Active lisinopril (PRINIVIL,ZESTR IL) 5 MG tablet Take 1 tablet by mouth every morning. 5 Active BD INSULIN PEN NEEDLE UF SHORT 31 gauge x 5/16 Ndle as directed. 5 Active QUEtiapine (SEROQUEL) 50 MG tablet TAKE 1 TABLET BY MOUTH IN THE AFTERNOON AND NIGHTTIME 90 DAYS Active WIXELA INHUB 250-50 mcg/dose DISKUS INHALE 1 PUFF INTO LUNGS TWICE A DAY FOR ASTHMA/COPD Active sertraline (ZOLOFT) 50 MG tablet Take 50 mg by mouth every morning. Active insulin glargine 100 unit/mL (3 mL) InPn injection pen 10 Units. Active nystatin (NYSTOP) powder Apply topically 2 (two) times a day. 60 g Active Active Problems Problem Noted Date Diagnosed Date Arteriosclerosis of coronary artery 08/06/2024 Hyperlipidemia 08/06/2024 Hypertension 08/06/2024 Morbid obesity 08/06/2024 Sleep apnea 08/06/2024 Type 2 diabetes mellitus 08/06/2024 Immunizations No known immunizations Social History Tobacco Use Types Packs/Day Years Used Date Smoking Tobacco: Never Assessed Education Answer Date Recorded Are you interested in more education? Not on roel e 06/24/2023 Are you concerned about learning? Not on file 06/24/2023 No 06/24/2023 No 06/24/2023 Digital Access Answer Date Recorded No 06/24/2023 No 06/24/2023 Reliable internet access at home? Not on file 06/24/2023 Device with a working camera? Not on file Sex and Gender Information Value Date Recorded Sex Assigned at Not on file Legal Sex Male 10:05 PM EDT Gender Identity Not on file Sexual Orientation Not on file Last Filed Vital Signs Vital Sign Reading Time Taken Comments Blood Pressure 100/65 08/06/2024 9:36 AM EDT Pulse 61 08/06/2024 9:36 AM EDT Temperature 36.8 C (98.3 F) 08/06/2024 9:36 AM EDT Respiratory Rate 18 08/06/2024 9:36 AM EDT Oxygen Saturation 97% 08/06/2024 9:36 AM EDT Inhaled Oxygen Concentration - - Weight 125.2 kg (276 lb) 06/24/2023 8:10 AM EST Height 180.3 cm (5' 11 ) 06/24/2023 8:10 AM EST Body Mass Index 38.49 06/24/2023 8:10 AM EST Plan of Treatment Health Maintenance Due Date Last Done Comments Adult Td,Tdap Booster 1948 CREATININE LEVEL 1948 HEMOGLOBIN A1C 1948 POTASSIUM LEVEL 1948 DEPRESSION SCREENING 1960 SMOKING Hx and SMOKELESS TOBACCO SCREENING 1961 HEPATITIS C SCREENING 1966 LIPID PANEL 1966 PNEUMOCOCCAL VACCINES (50+ years) (1 of 2 - PCV) 1967 ZOSTER VACCINES (1 of 2) 1998 RSV VACCINE (1 - 1-dose 75+ series) 2023 COVID-19 VACCINE (4 - 2023-2 5 season) 2023 02/27/2021, 07/09/2020, 06/11/2020 DIABETIC EYE EXAM 08/06/2024 BLOOD PRESSURE 02/05/2025 08/06/2024 HEPATITIS A VACCINES Aged Out No long er eligible based on patient's age to complete this topic HIB VACCINES Aged Out No longer eligi ble based on patient's age to complete this topic MENINGOCOCCAL VACCINES (ACWY) Aged Out No longer eligible based on patient's age to complete this topic MENINGOCOCCAL VACCINES (B) Aged Out N o longer eligible based on patient's age to complete this topic Medical Devices Not on file Insurance MEDICARE PART A & B [facility]IC[facility] SUPPLEMENT [facility] Address: [address] [place] [address] MEDICARE PART A & B MEDICARE SUPPLEMENT [facility] Address: [facility] [id number] [place] [address] MEDICARE PART A & B Member Subscriber Plan / Payer (Ef fective 2007-Present) Name:Manuel Vasquez Member ID:[id number] Relation to Subscriber:Self Name:Manuel Vasquez Subscriber ID:[id number] Payer ID:[id number] Group ID:Not on file Type:Medicare Address: [employer] [address] MEDICARE PART A & B MEDICARE PART A & B MEDICARE SUPPLEMENT MEDICARE PART A & B MEDICARE PART A & B MEDICARE SUPPLEMENT MEDICARE PART A & B MEDICARE SUPPLEMENT MEDICARE PART A & B [facility] Address: [address] [place] [address] Care Teams Mine Manager Relationship Specialty Start Date End Date Oscar Cruz MD [address] [place] [address] PCP - General Internal Medicine 08/06/24 Additional Source Comments The information contained in this document represents components of the legal health record. It is not the complete legal health record.[facility]
--- OUTSIDE RECORDS SUMMARY | 2024-11-09 07:34 | XMS_ITS | Patient Health Record ---
Author Organization [facility] Address [address] [place] [address] Care Team Providers Care Grade School Teacher Name Role Phone Bonnie (RETIRED) Jaden CHERRY Primary Care Provide r Tyrese Dejesus Jr Unavailable Reason For Referral No Information [...] Problem Status W/U Status Risk Notes Problem [id number] Screening for co cammie cancer (V76.51) Active confirmed Problem [id number] Long-term (curre nt) use of anticoagulants (V58.61) Active confirmed Plan Of Treatment Future Test Test Name Order Date COLONOSCOPY 10/30/2014 Insurance Providers Payer Name Payer Address Payer Phone Subscriber Number Group Number Insured Name Patient Relationship to Insured Coverage Start Date Coverage End Date MEDICARE OF [place] [address] [place] [address] [id number] SHAMEKA MCCRAY Self - patient is the insured [facility] [address] [place] [address] [id number] SHAMEKA MCCRAY Self - patient is the insured Medical (General) History Medical History History ICD Code 02/08/2004 colonoscopoy hypertension elevated blood sugar aortic stenosis sleep apnea Surgical History Surgery Date(Month/Year) umbilical hernia repair aortic valve replacement, [facility] Medic [facility] valve October 2004 coronary artery bypass open heart surgery cardiac pacemeker 2011
[2024-11-09 08:57] LABS: INTERNATIONAL NORM RATIO 3.2 (0.9-1.1); Prothrombin Time 37.0 SEC (10.9-12.4)
== END 2024-11-09 07:31 | disposition home or self-care (01) ==
LOC: HO.LHD 07:30
PROVIDERS: Visit Provider Internal Medicine
DX: Z79.01 Long term (current) use of anticoagulants (principal)
CPT/HCPCS: 36415; 85610

== ENCOUNTER 2024-11-21 08:00 | Outpatient (REF) | payer MEDICARE, SELFPAY ==
--- OUTSIDE RECORDS SUMMARY | 2024-11-21 08:03 | XMS_ITS | Clinical Summary ---
Author Organization [facility] Address [address] [address] Phone Care Team Providers Care Tool Grinding Technician Name Role Phone Oscar Cruz MD Primary [...] file Insurance MEDICARE PART A & B [facility] MEDICARE SUPPLEMENT MEDICARE PART A & B MEDICARE SUPPLEMENT MEDICARE PART A & B Member Subscriber Plan / Payer (Ef fective 2007-Present) Name:Manuel Vasquez Member ID:[id number] Relation to Subscriber:Self Name:Manuel Vasquez Subscriber ID:[id number] Payer ID:[id number] Group ID:Not on file Type:Medicare Address: [employer] [address] MEDICARE PART A & B MEDICARE PART A & B MEDICARE SUPPLEMENT MEDICARE PART A & B MEDICARE PART A & B MEDICARE SUPPLEMENT MEDICARE PART A & B MEDICARE SUPPLEMENT MEDICARE PART A & B [facility] MEDICARE SUPPLEMENT Care Teams Tool Grinding Technician Relationship Specialty Start Date End Date Oscar Cruz MD [address] [place] [address] PCP - General Internal Medicine 08/06/24 Additional Source Comments The information contained in this document represents components of the legal health record. It is not the complete legal health record.[facility]
--- OUTSIDE RECORDS SUMMARY | 2024-11-21 08:03 | XMS_ITS | Patient Health Record ---
Author Organization [facility] Address [address] [place] [address] Care Team Providers Care Pulmonology Physician Name Role Phone Bonnie (RETIRED) Jaden CHERRY Primary Care Provide r Tyrese Dejesus Jr Unavailable [phone] Reason For Referral No Information Medications Medication [...] Problem Status W/U Status Risk Notes Problem [id number] Screening for co cammie cancer (V76.51) Active confirmed Problem [id number] Long-term (curre nt) use of anticoagulants (V58.61) Active confirmed Plan Of Treatment Future Test Test Name Order Date COLONOSCOPY 10/30/2014 Insurance Providers Payer Name Payer Address Payer Phone Subscriber Number Group Number Insured Name Patient Relationship to Insured Coverage Start Date Coverage End Date MEDICARE OF [place] [address] [place] [address] [phone] [id number] SHAMEKA MCCRAY Self - patient is the insured [facility] [address] [place] [address] [id number] SHAMEKA MCCRAY Self - patient is the insured Medical (General) History Medical History History ICD Code 02/08/2004 colonoscopoy hypertension elevated blood sugar aortic stenosis sleep apnea Surgical History Surgery Date(Month/Year) umbilical hernia repair aortic valve replacement, [facility] Medic al valve October 2004 coronary artery bypass open heart surgery cardiac pacemeker 2011
[2024-11-21 11:07] LABS: INTERNATIONAL NORM RATIO 3.2 (0.9-1.1); Prothrombin Time 37.3 SEC (10.9-12.4)
== END 2024-11-21 08:01 | disposition home or self-care (01) ==
LOC: HO.LHD 08:00
PROVIDERS: Visit Provider Internal Medicine
DX: Z79.01 Long term (current) use of anticoagulants (principal)
CPT/HCPCS: 36415; 85610

== ENCOUNTER 2024-12-12 08:33 | Outpatient (REF) | payer MEDICARE, SELFPAY ==
--- OUTSIDE RECORDS SUMMARY | 2024-12-12 09:00 | XMS_ITS | Clinical Summary ---
Author Organization [facility] Address [address] [address] Phone Care Team Providers Care Washcloth Folder Name Role Phone Oscar Cruz MD Primary [...] file Insurance MEDICARE PART A & B [facility] MEDICARE SUPPLEMENT MEDICARE PART A & B MEDICARE SUPPLEMENT MEDICARE PART A & B Member Subscriber Plan / Payer (Ef fective 2007-Present) Name:Manuel Vasquez Member ID:[id number] Relation to Subscriber:Self Name:Manuel Vasquez Subscriber ID:[id number] Payer ID:[id number] Group ID:Not on file Type:Medicare Address: [employer] [address] MEDICARE PART A & B MEDICARE PART A & B MEDICARE SUPPLEMENT MEDICARE PART A & B MEDICARE PART A & B MEDICARE SUPPLEMENT MEDICARE PART A & B MEDICARE SUPPLEMENT MEDICARE PART A & B [facility] MEDICARE SUPPLEMENT Care Teams Washcloth Folder Relationship Specialty Start Date End Date Oscar Cruz MD [address] [place] [address] PCP - General Internal Medicine 08/06/24 Additional Source Comments The information contained in this document represents components of the legal health record. It is not the complete legal health record.[facility]
--- OUTSIDE RECORDS SUMMARY | 2024-12-12 09:01 | XMS_ITS | Patient Health Record ---
Author Organization [facility] Address [address] [place] [address] Care Team Providers Care Construction Supervisor/Carpenter Name Role Phone Bonnie (RETIRED) Jaden CHERRY [...] Problem Status W/U Status Risk Notes Problem [id number] Screening for co cammie cancer (V76.51) Active confirmed Problem [id number] Long-term (curre nt) use of anticoagulants (V58.61) Active confirmed Plan Of Treatment Future Test Test Name Order Date COLONOSCOPY 10/30/2014 Insurance Providers Payer Name Payer Address Payer Phone Subscriber Number Group Number Insured Name Patient Relationship to Insured Coverage Start Date Coverage End Date MEDICARE OF [place] [address] [place] [address] [id number] SHAMEKA MCCRAY Self - patient is the insured [facility] [address] [place] [address] [id number] SHAMEKA MCCRAY Self - patient is the insured Medical (General) History Medical History History ICD Code 02/08/2004 colonoscopoy hypertension elevated blood sugar aortic stenosis sleep apnea Surgical History Surgery Date(Month/Year) umbilical hernia repair aortic valve replacement, [facility] Medic al valve October 2004 coronary artery bypass open heart surgery cardiac pacemeker 2011
[2024-12-12 11:15] LABS: INTERNATIONAL NORM RATIO 4.8 (0.9-1.1); Prothrombin Time 54.6 SEC (10.9-12.4)
== END 2024-12-12 08:34 | disposition home or self-care (01) ==
LOC: HO.LHD 08:33
PROVIDERS: Visit Provider Internal Medicine
DX: Z51.81 Encounter for therapeutic drug level monitoring (principal); Z79.01 Long term (current) use of anticoagulants
CPT/HCPCS: 36415; 85610

== ENCOUNTER 2024-12-19 08:49 | Outpatient (REF) | payer MEDICARE, SELFPAY ==
--- OUTSIDE RECORDS SUMMARY | 2024-12-19 09:20 | XMS_ITS | Patient Health Record ---
Author Organization [facility] Address [address] [place] [address] Care Team Providers Care Senior Web Designer Name Role Phone Bonnie (RETIRED) Jaden CHERRY [...] Problem Status W/U Status Risk Notes Problem [id number] Screening for co cammie cancer (V76.51) Active confirmed Problem [id number] Long-term (curre nt) use of anticoagulants (V58.61) Active confirmed Plan Of Treatment Future Test Test Name Order Date COLONOSCOPY 10/30/2014 Insurance Providers Payer Name Payer Address Payer Phone Subscriber Number Group Number Insured Name Patient Relationship to Insured Coverage Start Date Coverage End Date MEDICARE OF [place] [address] [place] [address] [id number] SHAMEKA MCCRAY Self - patient is the insured [facility] [address] [place] [address] [id number] SHAMEKA MCCRAY Self - patient is the insured Medical (General) History Medical History History ICD Code 02/08/2004 colonoscopoy hypertension elevated blood sugar aortic stenosis sleep apnea Surgical History Surgery Date(Month/Year) umbilical hernia repair aortic valve replacement, [facility] Medic al valve October 2004 coronary artery bypass open heart surgery cardiac pacemeker 2011
--- OUTSIDE RECORDS SUMMARY | 2024-12-19 09:20 | XMS_ITS | Clinical Summary ---
Author Organization [facility] Address [address] [address] Phone Care Team Providers Care Designer Architect Name Role Phone Oscar Cruz MD Primary [...] VACCINE (1 - 1-dose 75+ series) 2023 DIABETIC EYE EXAM 08/06/2024 INFLUENZA VACCINE (#1) 2024 01/01/2020 COVID-19 VACCINE ( - 2024-2 6 season) 2024 02/27/2021, 07/09/2020, 06/11/2020 BLOOD PRESSURE 02/05/2025 08/06/2024 HEPATITIS A VACCINES [...] file Insurance MEDICARE PART A & B [facility] MEDICARE SUPPLEMENT MEDICARE PART A & B MEDICARE SUPPLEMENT MEDICARE PART A & B Member Subscriber Plan / Payer (Ef fective 2007-Present) Name:PedroManuel Member ID:[id number] Relation to Subscriber:Self Name:PedroManuel Subscriber ID:[id number] Payer ID:[id number] Group ID:Not on file Type:Medicare Address: [employer] [address] MEDICARE PART A & B Member Subscriber Plan / Payer (Ef fective 2007-Present) Name:PedroManuel Member ID:[id number] Relation to Subscriber:Self Name:PedroManuel Subscriber ID:[id number] Payer ID:[id number] Group ID:Not on file Type:Medicare Address: [employer] [address] [place] [phone] MEDICARE PART A & B Member Subscriber Plan / Payer (Ef fective 2007-Present) Name:Manuel Vasquez Member ID:[id number] Relation to Subscriber:Self Name:PedroManuel Subscriber ID:[id number] Payer ID:[id number] Group ID:Not on file Type:Medicare Address: [employer] [address] [place] [address] [place] [address] MEDICARE SUPPLEMENT MEDICARE PART A & B MEDICARE PART A & B MEDICARE SUPPLEMENT MEDICARE PART A & B MEDICARE SUPPLEMENT MEDICARE PART A & B [facility] MEDICARE SUPPLEMENT Care Teams Designer Architect Relationship Specialty Start Date End Date Oscar Cruz MD [address] [place] [phone] PCP - General Internal Medicine 08/06/24 Additional Source Comments The information contained in this document represents components of the legal health record. It is not the complete legal health record.[facility]
[2024-12-19 13:46] LABS: INTERNATIONAL NORM RATIO 3.6 (0.9-1.1); Prothrombin Time 41.8 SEC (10.9-12.4)
== END 2024-12-19 08:50 | disposition home or self-care (01) ==
LOC: HO.LHD 08:49
PROVIDERS: Visit Provider Internal Medicine
DX: Z51.81 Encounter for therapeutic drug level monitoring (principal); Z79.01 Long term (current) use of anticoagulants
CPT/HCPCS: 36415; 85610

== ENCOUNTER 2025-01-03 08:07 | Outpatient (REF) | payer MEDICARE, SELFPAY | END 2025-01-03 08:08 | disposition home or self-care (01) | LOC: HO.LHD 08:07 | PROVIDERS: Visit Provider Internal Medicine | DX: Z13.89 Encounter for screening for other disorder (principal) ==

== ENCOUNTER 2025-01-09 06:45 | Outpatient (REF) | payer MEDICARE, SELFPAY ==
--- OUTSIDE RECORDS SUMMARY | 2025-01-09 06:53 | XMS_ITS | Patient Health Record ---
Author Organization [facility] Address [address] [place] [address] Care Team Providers Care Manufacturing Support Engineer Name Role Phone Bonnie (RETIRED) Jaden [...] Problem Status W/U Status Risk Notes Problem [id number] Screening for co cammie cancer (V76.51) Active confirmed Problem [id number] Long-term (curre nt) use of anticoagulants (V58.61) Active confirmed Plan Of Treatment Future Test Test Name Order Date COLONOSCOPY 10/30/2014 Insurance Providers Payer Name Payer Address Payer Phone Subscriber Number Group Number Insured Name Patient Relationship to Insured Coverage Start Date Coverage End Date MED[place]ARE OF [place] [address] [place] [address] [id number] SHAMEKA MCCRAY Self - patient is the insured [facility] [address] [place] [address] [id number] SHAMEKA MCCRAY Self - patient is the insured Medical (General) History Medical History History ICD Code 02/08/2004 colonoscopoy hypertension elevated blood sugar aortic stenosis sleep apnea Surgical History Surgery Date(Month/Year) umbilical hernia repair aortic valve replacement, [facility] Medic al valve October 2004 coronary artery bypass open heart surgery cardiac pacemeker 2011
--- OUTSIDE RECORDS SUMMARY | 2025-01-09 06:53 | XMS_ITS | Clinical Summary ---
Author Organization [facility] Address [address] [address] Phone Care Team Providers Care Drywall Stripper Helper Name Role Phone Oscar Cruz MD Primary [...] file Insurance MEDICARE PART A & B [facility] MEDICARE SUPPLEMENT MEDICARE PART A & B MEDICARE SUPPLEMENT MEDICARE PART A & B MEDICARE PART A & B MEDICARE PART A & B Member Subscriber Plan / Payer (Ef fective 2007-Present) Name:Manuel Vasquez Member ID:[id number] Relation to Subscriber:Self Name:PedroManuel Subscriber ID:[id number] Payer ID:[id number] Group ID:Not on file Type:Medicare Address: [employer] [address] [place] [address] [place] [address] MEDICARE SUPPLEMENT MEDICARE PART A & B MEDICARE PART A & B MEDICARE SUPPLEMENT MEDICARE PART A & B [facility] MEDICARE SUPPLEMENT MEDICARE PART A & B [facility] MEDICARE [place] [address] [address] [place] [phone] Care Teams Drywall Stripper Helper Relationship Specialty Start Date End Date Oscar Cruz MD [address] [place] [address] PCP - General Internal Medicine 08/06/24 Additional Source Comments The information contained in this document represents components of the legal health record. It is not the complete legal health record.[facility]
[2025-01-09 11:03] LABS: INTERNATIONAL NORM RATIO 3.3 (0.9-1.1); Prothrombin Time 38.0 SEC (10.9-12.4)
== END 2025-01-09 06:46 | disposition home or self-care (01) ==
LOC: HO.LHD 06:45
PROVIDERS: Visit Provider Internal Medicine
DX: Z51.81 Encounter for therapeutic drug level monitoring (principal); Z79.01 Long term (current) use of anticoagulants
CPT/HCPCS: 36415; 85610

== ENCOUNTER 2025-01-19 14:39 | Emergency (ER) | payer MEDICARE, SELFPAY ==
[2025-01-19] VITALS (10 sets, daily range): BP systolic 84–138; BP diastolic 40–73; PULSE 60–76; RESP 12–18; TEMP 36.8; O2SAT 89–98; BMI 36.0
--- NOTE | ~2025-01-19 | XR_ITS ---
CLINICAL HISTORY: hypotension 1 view chest x-ray. Comparison: None Findings: There is mediastinal widening due to AP technique and body habitus. Heart size enlarged. ICD electrodes are in satisfactory position. Pulmonary vasculature is prominent. There is crowding of blood vessels in the hilar regions and lung bases due to incomplete inspiration. No acute fracture. Impression: Cardiomegaly with mild pulmonary vascular congestion. No pulmonary edema. This document has been electronically signed by: Cristopher Norton MD on 01/19/2025 17:21:00
--- NOTE | ~2025-01-19 | CT_ITS ---
CLINICAL HISTORY: intracranial bleed CT Head Without Contrast: Comparison: 05/25/2023 Findings: Cortical sulci and cisterns are prominent. Basal ganglia are unremarkable. No shift in midline structures. No intraparenchymal bleeding or abnormal extra-axial blood fluid collections. Normal pituitary size. Mild bilateral ethmoid and bilateral maxillary sinus mucosal thickening. Unremarkable orbital structures. No depressed fractures. Impression: Chronic involutional volume loss, no acute abnormality, no signs of intracranial mass or hemorrhage. This document has been electronically signed by: Cristopher Norton MD on 01/19/2025 17:33:24
--- NOTE | 2025-01-19 15:01 | ED.GENADULT ---
HPI - General Adult General Chief complaint: General Medical Stated complaint: LOW BP,LORENZO,86/40 & 98/62 PER EMS Time Seen by Provider: 01/19/25 14:53 Source: patient Mode of arrival: ambulatory Limitations: altered mental status History of Present Illness ED Provider: Dr. Epps HPI narrative: 74-year-old male history of Parkinson's disease, Lewy body dementia, diabetes, COPD aortic valve replacement on Coumadin presented hospital today for evaluation of hypotension. Patient had a headache today. They check his blood pressure and noted that he is hypotensive. Therefore patient was brought to the ER for further evaluation. is at bedside stated that patient has advanced dementia. Patient does have his good days and bad days. 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 She did not appreciate any signs of bleeding. Patient has not had any recent illness fever or cough. No sign of dark stool. No sign of diarrhea or vomiting. Related Data Home Medications ?Medication ?Instructions ?Recorded ?Confirmed atorvastatin 20 mg tablet 20 mg PO DAILY@1930 02/20/20 01/20/25 acetaminophen 500 mg tablet 1,000 mg PO DAILY PRN Pain 09/16/23 10/31/24 fluticasone 250 mcg-salmeterol 50 1 ea inhalation DAILY for asthma 01/20/25 01/20/25 mcg/dose blistr powdr for inhalation (Wixela Inhub) insulin glargine 100 unit/mL (3 10 unit subcut NEEDED 01/20/25 01/20/25 mL) subcutaneous pen (Basaglar KwikPen U-100 Insulin) lisinopril 5 mg tablet 5 mg PO QAM 01/20/25 01/20/25 quetiapine 50 mg tablet 50 mg PO BID 01/20/25 01/20/25 warfarin 5 mg tablet 5 mg PO DAILY 01/20/25 01/20/25 Previous Rx's ?Medication ?Instructions ?Recorded glipizide 10 mg tablet, extended 5 mg (1/2 x 10 mg) PO DAILY@0815 07/26/24 release 24 hr #90 tabs pen needle, diabetic 31 gauge x #200 ea 07/27/2408/31 montelukast 10 mg tablet 10 mg PO BEDTIME for asthma #90 10/08/24 tabs metoprolol tartrate 25 mg tablet 25 mg PO BID #180 tabs 10/22/24 sertraline 50 mg tablet 50 mg PO DAILY #90 tabs 10/31/24 Allergies Allergy/AdvReac Type Severity Reaction Status Date / Time metformin AdvReac Intermediate Stomach Verified 01/19/25 15:02 Upset Review of Systems Review of Systems: Pertinent review of systems as mentioned in HPI. All other system otherwise negative. [facility] Past Medical History [facility] Narrative: Medical history as mentioned in HPI Medical History (Updated 01/20/25 @ 15:21 by Evelyne Prather PA-C) Parkinsonism, secondary Dementia with Lewy bodies Cerebral microvascular disease Cerebral atrophy Dementia Morbid obesity Cough Asthma-COPD overlap syndrome Steroid dependence COPD (chronic obstructive pulmonary disease) Eosinophilic asthma Surgical History (Updated 10/29/24 @ 09:07 by Susie Rivera CMA) S/P cardiac pacemaker procedure Family History Family History (Updated 09/17/24 @ 09:24 by Halle Mcconnell MA) Mother No problems noted. Father No problems noted. Social History Social History Household Members: Spouse Housing: House Do you presently have visiting nurse or other home services: No Patient Tobacco Use Status: Former Tobacco user e-Cigarette/Vaping Use: Former Use Advance Directives: No Advance Directives Information Provided: No Do you have a plan to hurt others: No Plan service: No Current occupational status: retired Current occupational exposures/hazards: No Cognitive needs: Yes (cane) Hearing needs: No Vision needs: Yes (rx galsses) Physical Exam ED Exam Exam: General: Appears to be pleasantly confused Head: Normacephalic, atraumatic ENT: oral mucosa moist, neck supple, no tracheal deviation Cardiovascular: regular rate, regular rhythm Respiratory: CTAB, no wheeze, rales, rhonchi, no tachypnea no sign of respiratory distress Gastrointestinal: Soft, non distended, non tender, non guarding Extremities: Pitting edema bilateral lower extremity no obvious wound identified on exam Neurological: Awake and alert, no facial droop noted Skin: Warm and dry Psychiatric: Appropriate mood and thoughts Vital Signs: Vital Signs - 24 hr 01/20/25 15:16 01/20/25 16:09 01/20/25 17:06 Temperature 97.8 F Pulse Rate 64 81 Respiratory Rate 16 121 H Blood Pressure 78/42 L 88/50 L 134/55 L Pulse Oximetry 96 96 Oxygen Delivery Method Room Air Room Air 01/20/25 23:04 01/21/25 07:40 01/21/25 10:27 Temperature 98.4 F 97.9 F Pulse Rate 60 63 59 Respiratory Rate 16 Blood Pressure 120/53 L 124/57 L 124/54 L Pulse Oximetry 96 97 95 Oxygen Delivery Method Room Air Room Air Room Air BMI result Body Mass Index 36.0 Course Course Course Narrative: Time: 09:26 Date: 01/20/25 Provider: Evelyne Prather PA-C Patient in physician observation for case management needs. Came in last night with hypotension.? He was placed in Phys Obs overnight pending [facility] consult. No bleed noted, labs addressed in note above. Will continue to monitor and update plan after consult. 1410: [facility] cosulted. The following was recommended: Overall we agreed to increase Seroquel to 75 mg twice daily for 1-2 days and then increase to 100 mg twice daily if there are no side effects. Has an appointment with her neurologist on Tuesday01/23/2025. also discussed managing at home versus inpatient [facility] setting. Overall decided to trial medication changes at home. If ongoing difficulty managing patient at home in terms of a woman wrist, increasing agitation or distress and no benefit from medications or significant side effects, then inpatient [facility] would be appropriate next step and they would pursue same through emergency room and crisis services Dr. Anthony Blandon. 1515: Patient became hypotensive during amb trial. He is awaiting PT eval/ CM eval. Given he remains hypotensive, this would not be safe at home Time: 08:28 Date: 01/21/25 Provider: VANDANA Siddiqui Patient in physician observation for case management needs. No acute events reported overnight. Awaiting PT/CM eval. Elevated INR from yesterday, will repeat today. Time: 12:55 Date: 01/21/25 Provider: VANDANA Siddiqui Physician observation ended at 12:56PM. Patient will be discharged home with family via BLS at 12:00 p.m. this afternoon. INR still remains to be elevated. Patient has had Coumadin held. 5.5 today. Reevaluation(s) Reevaluation #1: Jacki: I became involved with this patient today because of low blood pressures. The patient is a 74-year-old male with a significant dementia who lives at home with his . Yesterday he complained of a headache which is unusual for him. His family took his blood pressure at home and it was low and so they called an ambulance and he was brought here. The patient has had some behavioral outbursts and received IM injections last night. He was seen by Psychiatry today and Dr. Blandon felt that the patient's quetiapine, which has been at 50 mg b.i.d., can be increased. His plan was to try 75 mg b.i.d. for 1-2 days and then to increase to a total of 100 mg b.i.d. if there were no significant side effects. While in the emergency room today the patient seemed to have orthostatic hypotension. He has not seem septic and he does not seem to have hypotension related to any other problems. I do not think he has any blood loss and I do not think he has any new acute coronary issue. My overall impression is that the patient might have some degree of orthostatic hypotension related to his Lewy body dementia. He was given a dose of midodrine. Ultimately the family did not feel safe bringing him home today and so I felt it would be reasonable to keep in the emergency room overnight. I have ordered the new dose of quetiapine. He will be given his 1st dose this evening. With regard to his low blood pressure readings the patient is normally on lisinopril 5 mg daily and metoprolol 25 mg b.i.d.. This evening the patient has vital signs that show a heart rate of 60 and a blood pressure of 120/53. Given these blood pressure readings I would not be inclined to continue his metoprolol. Given that he was hypotensive earlier I have also not reordered his lisinopril. I think that if the patient seems to be doing well tomorrow it would be appropriate for him to go home. I am not certain that there would be much benefit from a physical therapy consult. The patient is quite demented. I am not certain that he would be a rehab candidate. Apparently the patient has a an outpatient neurology appointment this Tuesday on January 23. Medications Administered Generic Name Dose Route Start Last Admin Trade Name Freq PRN Reason Stop Dose Admin Quetiapine Fumarate 75 mg 01/20/25 23:35 01/21/25 10:21 Quetiapine Fumarate 25 Mg Tablet PO 75 mg BID PEARL Administration Sertraline HCl 50 mg 01/21/25 09:00 01/21/25 10:21 Sertraline Hcl 50 Mg Tablet PO 50 mg DAILY PEARL Administration Discontinued Medications Generic Name Dose Route Start Last Admin Trade Name Andrewq PRN Reason Stop Dose Admin Sodium Chloride 500 mls @ 500 mls/hr 01/19/25 21:30 01/19/25 23:51 Ns IV 01/19/25 22:29 Infused .Q1H PEARL Infusion Lactated Ringer's 1,000 mls @ 500 mls/hr 01/20/25 16:15 01/20/25 18:27 Lr IV 01/20/25 18:14 Infused .Q2H PEARL Infusion Midazolam HCl 4 mg 01/19/25 20:02 01/19/25 20:15 Midazolam Hcl 2 Mg/2 Ml Vial IM 01/19/25 20:03 4 mg ONCE ONE Administration Midodrine 5 mg 01/20/25 16:01 01/20/25 16:09 Midodrine Hcl 5 Mg Tablet PO 01/20/25 16:02 5 mg ONCE ONE Administration Olanzapine 5 mg 01/19/25 19:51 01/19/25 20:15 Olanzapine 10 Mg Vial IM 01/19/25 19:52 5 mg STAT STA Administration Medical Decision Making Medical Decision Making [facility] Narrative: 74-year-old male presented hospital today for evaluation of hypotension. On arrival the patient's blood pressure has improved. No sign of hypotension on arrival. His hemoglobin is 9.8. He does have elevated INR of 5.9. However family denies any active bleeding. We will obtain a CT head given his symptoms of headache. To rule out intracranial bleed. Patient has a slight bump in creatinine 1.61. Previous creatinine level was 1.3. Patient's BNP is elevated at 2192. However he does not appear to be in respiratory distress he does have some lower extremity swelling. We will plan to give patient a small 500 cc IV fluid. UA will be obtained. Patient's UA did not show any signs of UTI. Patient's troponin is negative. Review patient's CT head. Negative for any signs of intracranial bleed. Chest x-ray shows cardiomegaly with pulmonary vascular congestion. No sign of pulmonary edema. Family notified us that patient has been increasingly agitated. We will plan to give patient his home dose of Seroquel. Patient is actively trying to get out of bed. He is a threat to himself. He is irritable towards staff at this time. For his safety and staff safety. We will plan to give patient a small dose of IM Haldol and some IM Versed. We will continue to observe the patient is here. Discuss with patient's . Patient may need [facility] evaluation due to his ongoing advancement of dementia. We will plan to have [facility] consult placed. We will keep him here overnight so they can evaluate him in the morning. Discussed code status with patient's . She stated that patient we will prefer to be DNR DNI this is not the quality of life that he will like. Code status changed to reflect his wishes. Diet order has been placed for the patient. Differential Diagnosis Differential Diagnoses: The differential diagnosis associated with the presentation includes Lewy body dementia, UTI, dehydration, intracranial bleed, CHF Admission/Observation Consideration of admission/observation: Escalation of care including admission/observation considered Consult Healthcare Provider Management of the patient was discussed with: Hospitalist and Space Technologist Dr Anthony Blandon 01/20/25: 110am: Overall we agreed to increase Seroquel to 75 mg twice daily for 1-2 days and then increase to 100 mg twice daily if there are no side effects. Has an appointment with her neurologist on Tuesday01/23/2025. also discussed managing at home versus inpatient [facility] setting. Overall decided to trial medication changes at home. If ongoing difficulty managing patient at home in terms of a woman wrist, increasing agitation or distress and no benefit from medications or significant side effects, then inpatient [facility] would be appropriate next step and they would pursue same through emergency room and crisis services Lab Data MDM Lab Attestation statement: I reviewed the patient's lab results. 01/20/25 08:08 01/19/25 15:22 Labs: Lab Results 01/19/25 01/19/25 01/19/25 Range/Units 15:21 15:22 16:55 WBC 6.8 (4.8-10.8) X10*3/uL RBC 2.91 L (4.60-5.80) X10*6/uL Hgb 9.8 L (14.0-18.0) g/dl Hct 28.6 L (42.0-52.0) % MCV 98.3 H (80.0-98.0) fL MCH 33.7 H (27.0-33.0) pg MCHC 34.3 (31.0-36.0) g/dl RDW 14.6 (11.0-16.0) % Plt Count 126 L (160-400) X10*3/uL MPV 11.5 (9.4-12.4) fL Immature Gran % (Auto) 0.3 (0.0-0.4) % Neut % (Auto) 73.2 H (45-73) % Lymph % (Auto) 11.5 L (20-40) % [place] % (Auto) 9.6 (2-11) % Eos % (Auto) 5.3 H (0-4) % Baso % (Auto) 0.1 (0-2) % Lymph # (Auto) 0.8 L (1.2-4.9) X10*3/uL [place] # (Auto) 0.7 (0.1-1.2) X10*3/uL Eos # (Auto) 0.4 (0.0-0.4) X10*3/uL Baso # (Auto) 0.0 (0.0-0.2) X10*3/uL Abs Immat Gran (auto) 0.02 (0.00-0.03) X10*3/uL Absolute Neuts (auto) 5.0 (2.0-8.3) x10*3/uL Absolute Nucleated RBC 0.000 (0.0-0.012) X10*3/uL Nucleated RBC % (auto) 0.0 (0.0-0.2) /100WBC PT 67.8 H D (10.9-12.4) SEC INR 5.9 H* D (0.9-1.1) Sodium 139 (135-145) mmol/L Potassium 5.1 (3.3-5.1) mmol/L Chloride 110 H (96-108) mmol/L Carbon Dioxide 22 (22-29) mmol/L Anion Gap 12 (12-20) BUN 38 H (9-16) mg/dL Creatinine 1.61 H (0.5-1.4) mg/dL Estim Creat Clear Calc 50.7 Estimated GFR 42 POC Glucose (60-115) mg/dL Random Glucose 104 (60-115) mg/dL Lactic Acid 0.8 (0.5-2.0) mmol/L Calcium 8.4 D (8.4-10.2) mg/dL Magnesium 1.6 (1.6-2.6) mg/dL Total Bilirubin 0.4 (0.0-1.0) mg/dL AST 30 (5-37) U/L ALT 13 (0-40) U/L Alkaline Phosphatase 121 H (39-117) U/L Troponin I High Sens 17.4 (<3.5-35.0) ng/L NT-Pro-B Natriuret Pep 2192.1 H (<300) pg/mL Total Protein 6.7 (6.5-8.0) g/dL Albumin 3.8 (3.5-5.0) g/dL TSH 2.08 (0.32-4.0) uIU/mL Urine Color Yellow Urine Appearance Clear Urine pH 5.5 (5.0-9.0) Ur Specific [place] 1.010 (1.005-1.025) Urine Protein Negative (Neg-Trace) mg/dL Urine Glucose (UA) Negative (Negative) mg/dL Urine Ketones Negative (Negative) mg/dL Urine Blood Negative (Negative) Urine Nitrite Negative (Negative) Ur Leukocyte Esterase Negative (Negative) Stool Occult Blood (NEGATIVE) 01/19/25 01/20/25 01/21/25 Range/Units 23:59 08:08 10:44 WBC 7.2 (4.8-10.8) X10*3/uL RBC 3.15 L (4.60-5.80) X10*6/uL Hgb 10.7 L (14.0-18.0) g/dl Hct 31.0 L (42.0-52.0) % MCV 98.4 H (80.0-98.0) fL MCH 34.0 H (27.0-33.0) pg MCHC 34.5 (31.0-36.0) g/dl RDW 14.6 (11.0-16.0) % Plt Count 126 L (160-400) X10*3/uL MPV 10.8 (9.4-12.4) fL Immature Gran % (Auto) 0.1 (0.0-0.4) % Neut % (Auto) 76.2 H (45-73) % Lymph % (Auto) 11.2 L (20-40) % [place]odd[place] % (Auto) 6.8 (2-11) % Eos % (Auto) 5.3 H (0-4) % Baso % (Auto) 0.4 (0-2) % Lymph # (Auto) 0.8 L (1.2-4.9) X10*3/uL [place] # (Auto) 0.5 (0.1-1.2) X10*3/uL Eos # (Auto) 0.4 (0.0-0.4) X10*3/uL Baso # (Auto) 0.0 (0.0-0.2) X10*3/uL Abs Immat Gran (auto) 0.01 (0.00-0.03) X10*3/uL Absolute Neuts (auto) 5.5 (2.0-8.3) x10*3/uL Absolute Nucleated RBC 0.000 (0.0-0.012) X10*3/uL Nucleated RBC % (auto) 0.0 (0.0-0.2) /100WBC PT 65.4 H 62.8 H (10.9-12.4) SEC INR 5.7 H* 5.5 H* (0.9-1.1) Sodium (135-145) mmol/L Potassium (3.3-5.1) mmol/L Chloride (96-108) mmol/L Carbon Dioxide (22-29) mmol/L Anion Gap (12-20) BUN (9-16) mg/dL Creatinine (0.5-1.4) mg/dL Estim Creat Clear Calc Estimated GFR POC Glucose (60-115) mg/dL Random Glucose (60-115) mg/dL Lactic Acid (0.5-2.0) mmol/L Calcium (8.4-10.2) mg/dL Magnesium (1.6-2.6) mg/dL Total Bilirubin (0.0-1.0) mg/dL AST (5-37) U/L ALT (0-40) U/L Alkaline Phosphatase (39-117) U/L Troponin I High Sens (<3.5-35.0) ng/L NT-Pro-B Natriuret Pep (<300) pg/mL Total Protein (6.5-8.0) g/dL Albumin (3.5-5.0) g/dL TSH (0.32-4.0) uIU/mL Urine Color Urine Appearance Urine pH (5.0-9.0) Ur Specific [place] (1.005-1.025) Urine Protein (Neg-Trace) mg/dL Urine Glucose (UA) (Negative) mg/dL Urine Ketones (Negative) mg/dL Urine Blood (Negative) Urine Nitrite (Negative) Ur Leukocyte Esterase (Negative) Stool Occult Blood NEGATIVE (NEGATIVE) 01/21/25 Range/Units 10:53 WBC (4.8-10.8) X10*3/uL RBC (4.60-5.80) X10*6/uL Hgb (14.0-18.0) g/dl Hct (42.0-52.0) % MCV (80.0-98.0) fL MCH (27.0-33.0) pg MCHC (31.0-36.0) g/dl RDW (11.0-16.0) % Plt Count (160-400) X10*3/uL MPV (9.4-12.4) fL Immature Gran % (Auto) (0.0-0.4) % Neut % (Auto) (45-73) % Lymph % (Auto) (20-40) % Stoddard % (Auto) (2-11) % Eos % (Auto) (0-4) % Baso % (Auto) (0-2) % Lymph # (Auto) (1.2-4.9) X10*3/uL [place] # (Auto) (0.1-1.2) X10*3/uL Eos # (Auto) (0.0-0.4) X10*3/uL Baso # (Auto) (0.0-0.2) X10*3/uL Abs Immat Gran (auto) (0.00-0.03) X10*3/uL Absolute Neuts (auto) (2.0-8.3) x10*3/uL Absolute Nucleated RBC (0.0-0.012) X10*3/uL Nucleated RBC % (auto) (0.0-0.2) /100WBC PT (10.9-12.4) SEC INR (0.9-1.1) Sodium (135-145) mmol/L Potassium (3.3-5.1) mmol/L Chloride (96-108) mmol/L Carbon Dioxide (22-29) mmol/L Anion Gap (12-20) BUN (9-16) mg/dL Creatinine (0.5-1.4) mg/dL Estim Creat Clear Calc Estimated GFR POC Glucose 104 (60-115) mg/dL Random Glucose (60-115) mg/dL Lactic Acid (0.5-2.0) mmol/L Calcium (8.4-10.2) mg/dL Magnesium (1.6-2.6) mg/dL Total Bilirubin (0.0-1.0) mg/dL AST (5-37) U/L ALT (0-40) U/L Alkaline Phosphatase (39-117) U/L Troponin I High Sens (<3.5-35.0) ng/L NT-Pro-B Natriuret Pep (<300) pg/mL Total Protein (6.5-8.0) g/dL Albumin (3.5-5.0) g/dL TSH (0.32-4.0) uIU/mL Urine Color Urine Appearance Urine pH (5.0-9.0) Ur Specific [place] (1.005-1.025) Urine Protein (Neg-Trace) mg/dL Urine Glucose (UA) (Negative) mg/dL Urine Ketones (Negative) mg/dL Urine Blood (Negative) Urine Nitrite (Negative) Ur Leukocyte Esterase (Negative) Stool Occult Blood (NEGATIVE) Independent Interpretation I performed an independent interpretation of an: Plain X-Ray and CT Scan Radiology Impression Discussion of test interpretation with radiology: I have reviewed the radiologist's reading. Chronic Conditions Parkinson's, Lewy body dementia Discharge Plan Discharge Clinical Impression: Supratherapeutic INR, Acute hypotension, Physical deconditioning LBD (Lewy body dementia) Qualifiers: Dementia severity: unspecified severity Dementia behavioral or psychological symptom: with agitation Qualified Code(s): G31.83 - Neurocognitive disorder with Lewy bodies Patient Disposition: Home, Self-Care Additional Instructions: You had a consultation with geriatric consult team who had the following recommendations to care plan. - Seroquel to 75 mg twice daily for 1-2 days and then increase to 100 mg twice daily if there are no side effects. -appointment with her neurologist on Tuesday01/23/2025. -Discussed managing at home versus inpatient [facility] setting. Overall decided to trial medication changes at home. -If ongoing difficulty managing patient at home in terms of a risk, increasing agitation or distress and no benefit from medications or significant side effects, then inpatient [facility] would be appropriate next step and they would pursue same through emergency room and crisis services. - please hold Coumadin and follow-up with your PCP as you need to repeat your INR and have this trended. Your INR today was 5.5. Prescriptions: No Action glipizide 10 mg tablet extended release 24hr 5 mg PO DAILY@0815 Qty: 90 3RF (DME) pen needle, diabetic 31 gauge x 5/16 needle See Rx Instructions subcut DAILY Qty: 200 3RF Rx Instructions: check glucose 4 times daily montelukast 10 mg tablet 10 mg PO BEDTIME Qty: 90 3RF metoprolol tartrate 25 mg tablet 25 mg PO BID Qty: 180 1RF acetaminophen 500 mg Tablet 1,000 mg PO DAILY PRN (Reason: Pain) lisinopril 5 mg tablet 5 mg PO QAM warfarin 5 mg tablet 5 mg PO DAILY quetiapine 50 mg tablet 50 mg PO BID fluticasone propion-salmeterol [Wixela Inhub] 250-50 mcg/dose blister with device 1 ea inhalation DAILY insulin glargine [Basaglar KwikPen U-100 Insulin] 100 unit/mL (3 mL) insulin pen 10 unit subcut NEEDED atorvastatin 20 mg tablet 20 mg PO DAILY@1930 sertraline 50 mg tablet 50 mg PO DAILY Qty: 90 0RF Referrals: [facility] [Outside] Fallon Santamaria PA [Primary Care Provider, Internal Medicine] Print Language: Slovak
--- OUTSIDE RECORDS SUMMARY | 2025-01-19 15:25 | XMS_ITS | Patient Health Record ---
Author Organization [facility] Address [address] [place] [address] Care Team Providers Care X Ray Physician Name Role Phone Bonnie (RETIRED) Jaden CHERRY Primary Care Provide r Tyrese Dejesus Jr Unavailable [phone] Reason For Referral No Information Medications Medication [...] Problem Status W/U Status Risk Notes Problem 606744409 Screening for co cammie cancer (V76.51) Active confirmed Problem [id number] Long-term (curre nt) use of anticoagulants (V58.61) Active confirmed Plan Of Treatment Future Test Test Name Order Date COLONOSCOPY 10/30/2014 Insurance Providers Payer Name Payer Address Payer Phone Subscriber Number Group Number Insured Name Patient Relationship to Insured Coverage Start Date Coverage End Date MEDICARE OF [place] [address] [place] [address] [id number] SHAMEKA MCCRAY Self - patient is the insured [facility] [address] [place] [address] [id number] SHAMEKA MCCRAY Self - patient is the insured Medical (General) History Medical History History ICD Code 02/08/2004 colonoscopoy hypertension elevated blood sugar aortic stenosis sleep apnea Surgical History Surgery Date(Month/Year) umbilical hernia repair aortic valve replacement, [facility] Medic al valve October 2004 coronary artery bypass open heart surgery cardiac pacemeker 2011
--- OUTSIDE RECORDS SUMMARY | 2025-01-19 15:25 | XMS_ITS | Clinical Summary ---
Author Organization [facility] Address [address] [address] Phone Care Team Providers Care Surgery Center Administrator Name Role Phone Oscar Cruz MD Primary [...] file Insurance MEDICARE PART A & B [facility] MEDICARE SUPPLEMENT MEDICARE PART A & B MEDICARE SUPPLEMENT MEDICARE PART A & B MEDICARE PART A & B MEDICARE PART A & B Member Subscriber Plan / Payer (Ef fective 2007-Present) Name:Manuel Vasquez Member ID:[id number] Relation to Subscriber:Self Name:PedroManuel Subscriber ID:[id number] Payer ID:[id number] Group ID:Not on file Type:Medicare Address: [employer] [address] [place] [address] [place] [address] MEDICARE SUPPLEMENT MEDICARE PART A & B MEDICARE PART A & B MEDICARE SUPPLEMENT MEDICARE PART A & B [facility] MEDICARE SUPPLEMENT MEDICARE PART A & B [facility] MEDICARE [place]LE[place] [place] [phone] Care Teams Surgery Center Administrator Relationship Specialty Start Date End Date Oscar Cruz MD [address] [place] [id number] PCP - General Internal Medicine 08/06/24 Additional Source Comments The information contained in this document represents components of the legal health record. It is not the complete legal health record.[facility]
[2025-01-19 15:26] LABS: MANUAL DIFF FLAG NO
[2025-01-19 15:31] LABS: Hematocrit 28.6 % (42.0-52.0); Hemoglobin 9.8 g/dl (14.0-18.0); Imm Gran Abs Auto 0.02 X10*3/uL (0.00-0.03); Imm Gran Pct Auto 0.3 % (0.0-0.4); Lymphocytes Absolute Auto 0.8 X10*3/uL (1.2-4.9); Mean Corpuscular HGB Conc 34.3 g/dl (31.0-36.0); Mean Corpuscular Hemoglobin 33.7 pg (27.0-33.0); Mean Corpuscular Volume 98.3 fL (80.0-98.0); NRBC Abs Auto 0.000 X10*3/uL (0.0-0.012); NRBC Pct Auto 0.0 /100WBC (0.0-0.2); Platelet Count 126 X10*3/uL (160-400); Red Blood Count 2.91 X10*6/uL (4.60-5.80); White Blood Count 6.8 X10*3/uL (4.8-10.8)
[2025-01-19 15:46] LABS: Prothrombin Time 67.8 SEC (10.9-12.4)
[2025-01-19 15:58] LABS: Troponin-I High Sensitivity 17.4 ng/L (<3.5-35.0)
[2025-01-19 16:02] LABS: Alanine Aminotransferase 13 U/L (0-40); Albumin Level 3.8 g/dL (3.5-5.0); Alkaline Phosphatase 121 U/L (39-117); Anion Gap 12 (12-20); Aspartate Amino Transferase 30 U/L (5-37); Blood Urea Nitrogen 38 mg/dL (9-16); Calcium 8.4 mg/dL (8.4-10.2); Carbon Dioxide 22 mmol/L (22-29); Chloride 110 mmol/L (96-108); Creatinine Clr Calc Pharmacy 50.7; Estimated Glomerular Filt Rate 42; Magnesium 1.6 mg/dL (1.6-2.6); Potassium 5.1 mmol/L (3.3-5.1); Sodium 139 mmol/L (135-145); Total Protein 6.7 g/dL (6.5-8.0)
[2025-01-19 17:05] LABS: Appearance Urine Clear; Glucose Urine UA Negative (Negative); PH 5.5 (5.0-9.0); Specific Gravity - Urine 1.010 (1.005-1.025)
[2025-01-19 19:36] LABS: INTERNATIONAL NORM RATIO 5.9 (0.9-1.1)
[2025-01-19] MEDS: OLANZapine 10 MG VIAL 5 MG IM (20:15)
--- NOTE | 2025-01-19 22:37 | PC.NURSE ---
Late entry: @ 2015 Pt medicated IM for safety as pt was disoriented and confused. Continuously trying to get out of bed. Redirected multiple times with no success. Family at bed unable to redirect either. Pt did not recognize or son at bedside. Pt became agitated, frustrated and aggressive. Started yelling asking for the police and started throwing leads and cords. By 2029 pt observed to be sleeping and snoring. NSR on monitor with visible pacer spikes before each QRS complex. Pts O2 noted to be 89-90% on RA. Pt placed on 2L NC with no improvement. Oxymask placed as pt is a mouth breather. O2 sat improved to 96% on 2L via oxymask. Pt hypotensive with BP 100/50. made aware and new order placed in JUN.
--- NOTE | 2025-01-19 23:22 | ECG_ITS ---
Test Reason : HYPOTENSION Blood Pressure : */* mmHG Vent. Rate : 67 BPM Atrial Rate : 78 BPM P-R Int : * ms QRS Dur : 204 ms QT Int : 512 ms P-R-T Axes : * -84 77 degrees QTcB Int : 541 ms Ventricular-paced rhythm Abnormal ECG No previous ECGs available Referred By: Sabina Epps Electronically Signed By: BENJAMIN BERNARD
[2025-01-20] VITALS (7 sets, daily range): BP systolic 78–134; BP diastolic 42–63; PULSE 60–81; RESP 11–121; TEMP 36.6–36.9; O2SAT 95–96
[2025-01-20 00:06] LABS: OBS Int Ctl Valid YES; OBS1 NEGATIVE (NEGATIVE)
--- NOTE | 2025-01-20 01:18 | PC.NURSE ---
Pt is awake, attempting to get out of the bed. Able to redirect pt. Monitoring is ongoing.
--- NOTE | 2025-01-20 07:54 | MHC.CM.PN ---
Addendum entered by Sheri Hermosillo 01/21/25 06:12: PER RN NOTES, FAMILY HAD CONCERNS ABOUT TAKING PT HOME LAST NIGHT AND REQUESTED BLS TRANSPORT HOME THIS MORNING. PT WILL DC HOME THIS MORNING WITH RESUMPTION OF FAMILY SUPPORT Addendum entered by Sheri Hermosillo 01/20/25 14:44: PSYCH CONSULT COMPLETED AND MED CHANGE HAS BEEN RECOMMENDED PT WILL DC HOME WITH RESUMPTION OF FAMILY SUPPORT Original Note: Rec'd ED CM consult from MD. Patient w/ dx Lewy Body Dementia & Parkinson's. Assessment completed w/ / HCP Ana. Patient lives at home w/ Ana, who is his multimedia engineer caregiver. Daughter, Disha, and 2 sons live nearby and provide assistance PRN / stay with patient while is out of the home 1-2x/wk for errands, appts, etc. Patient is never left alone. Ambulates w/ cane or walker PRN. reports they recently were approved for 3hrs EXCHANGE UNDERWRITING CONSULTANT (1.5 hrs 2x/wk) w/ [facility]. She anticipates this should be starting in the next week or so. Also reports agitation at times. She says when this happens she can usually calm him, but at times calls her children to assist. No safety concerns. DP: Awaiting psych consult for ? bandar-psych stay v return home w/ . Also discussed 's salvage determiner plan for patient's care. She and her children prefer to keep patient home. Does not currently have [employer] or private funds for LTC or additional in home care. is open to working on [facility] now in case it is needed in the future. Referral sent to financial counselor to assist.
[2025-01-20 08:12] LABS: MANUAL DIFF FLAG NO
[2025-01-20 08:13] LABS: NRBC Abs Auto 0.000 X10*3/uL (0.0-0.012); NRBC Pct Auto 0.0 /100WBC (0.0-0.2); PLT CLUMP 1; Red Blood Count 3.15 X10*6/uL (4.60-5.80); SCAN SMEAR FLAG 1
[2025-01-20 08:15] LABS: Hematocrit 31.0 % (42.0-52.0); Hemoglobin 10.7 g/dl (14.0-18.0); Imm Gran Abs Auto 0.01 X10*3/uL (0.00-0.03); Imm Gran Pct Auto 0.1 % (0.0-0.4); Lymphocytes Absolute Auto 0.8 X10*3/uL (1.2-4.9); Mean Corpuscular HGB Conc 34.5 g/dl (31.0-36.0); Mean Corpuscular Hemoglobin 34.0 pg (27.0-33.0); Mean Corpuscular Volume 98.4 fL (80.0-98.0)
[2025-01-20 08:20] LABS: Platelet Count 126 X10*3/uL (160-400); White Blood Count 7.2 X10*3/uL (4.8-10.8)
[2025-01-20 08:25] LABS: Prothrombin Time 65.4 SEC (10.9-12.4)
[2025-01-20 08:27] LABS: INTERNATIONAL NORM RATIO 5.7 (0.9-1.1)
--- NOTE | 2025-01-20 08:28 | PC.NURSE ---
Pt wanting to leave, asking for his . Oriented to self.
--- NOTE | 2025-01-20 11:06 | PM.PSYCN ---
History of Present Illness Date of Service: 01/20/25 Chief Complaint: LOW BP,LORENZO,86/40 & 98/62 PER EMS Reason for Consult: medication evaluation in the context of Lewy body dementia Sources of Information: patient interviewed and chart reviewed Additional Sources of Information: and daughter who were present HPI Narrative: As per ED NOtes: 74-year-old male history of Parkinson's disease, Lewy body dementia, diabetes, COPD aortic valve replacement on Coumadin presented hospital today for evaluation of hypotension. Patient had a headache today. They check his blood pressure and noted that he is hypotensive. Therefore patient was brought to the ER for further evaluation. is at bedside stated that patient has advanced dementia. Patient does have his good days and bad days. She is the primary behavioral scientist of him at home.......Family notified us that patient has been increasingly agitated. We will plan to give patient his home dose of Seroquel. Patient is actively trying to get out of bed. He is a threat to himself. He is irritable towards staff at this time. For his safety and staff safety. We will plan to give patient a small dose of IM Haldol and some IM Versed. We will continue to observe the patient is here. Discuss with patient's . Patient may need [facility] evaluation due to his ongoing advancement of dementia. We will plan to have [facility] consult placed. We will keep him here overnight so they can evaluate him in the morning. Discussed code status with patient's . She stated that patient we will prefer to be DNR DNI this is not the quality of life that he will like. Code status changed to reflect his wishes. Diet order has been placed for the patient. Today: patient presents with clear evidence of establish dementia (Lewy body). Not understanding of where he is, current situation. Was also unable to identify the people next to him which were his and daughter Sees Dr. Hidalgo who manages both. Has been on Seroquel 50 mg twice daily since July 2024. no significant benefit. No side effects. This regimen is not impacted mobility, dizziness or blood pressure i.e. those are new things. In recent months has been hearing things and seeing things more frequently. Talking to imaginary people. Accusing people of stealing his car. Has threatened to hurt his daughter, but the next minute states she is his favorite. Tries to leave. has locks on the doors and also blocked the door. Has not physically assaulted her. Verbally agitated. Very poor sleep. Has not been in any other medications for dementia or agitation. Also taking Zoloft. Discussed at length options which include either increasing Seroquel while also monitoring dizziness, sedation and blood pressure, although they have not been largely problematic on current dosing. Other options include Risperdal 0.5 mg twice daily and 0.5 mg as needed but this could worsen parkinsonism or aripiprazole 5-10 mg but this would take longer to have clear benefit. Overall we agreed to increase Seroquel to 75 mg twice daily for 1-2 days and then increase to 100 mg twice daily if there are no side effects. Has an appointment with her neurologist on Tuesday01/23/2025. also discussed managing at home versus inpatient [facility] setting. Overall decided to trial medication changes at home. If ongoing difficulty managing patient at home in terms of a woman wrist, increasing agitation or distress and no benefit from medications or significant side effects, then inpatient [facility] would be appropriate next step and they would pursue same through emergency room and crisis services. Past Psychiatric History: See above Medical Evaluation Reviewed: Yes [facility] Medical History (Updated 01/20/25 @ 13:30 by Anthony Blandon MD) Parkinsonism, secondary Dementia with Lewy bodies Cerebral microvascular disease Cerebral atrophy Dementia Morbid obesity Cough Asthma-COPD overlap syndrome Steroid dependence COPD (chronic obstructive pulmonary disease) Eosinophilic asthma Surgical History (Updated 10/29/24 @ 09:07 by Susie Rivera CMA) S/P cardiac pacemaker procedure Social History: lives at home with . Supportive daughter Diagnostics Vital Signs (24Hr): Vital Signs - 24 hr 01/19/25 14:54 01/19/25 16:09 01/19/25 20:15 Temperature 98.2 F 98.3 F Pulse Rate 60 60 67 Respiratory Rate 14 15 18 Blood Pressure 100/60 138/73 Pulse Oximetry 95 98 Oxygen Delivery Method Room Air Room Air Oxygen Flow Rate 01/19/25 20:30 01/19/25 20:45 01/19/25 21:00 Temperature Pulse Rate 60 60 60 Respiratory Rate 15 17 14 Blood Pressure 103/44 L 103/50 L 102/51 L Pulse Oximetry 89 L 90 L 90 L Oxygen Delivery Method Room Air Room Air Room Air Oxygen Flow Rate 01/19/25 21:15 01/19/25 21:30 01/19/25 21:45 Temperature Pulse Rate 60 60 60 Respiratory Rate 12 12 13 Blood Pressure 93/51 L 102/49 L 99/51 L Pulse Oximetry 96 97 97 Oxygen Delivery Method Oxymask Oxymask Oxymask Oxygen Flow Rate 2 2 2 01/19/25 23:52 01/20/25 06:41 01/20/25 08:24 Temperature 98.5 F Pulse Rate 60 60 60 Respiratory Rate 15 13 21 H Blood Pressure 125/63 121/63 121/55 L Pulse Oximetry 96 95 Oxygen Delivery Method Room Air Room Air Oxygen Flow Rate BMI result Body Mass Index 36.0 Labs 01/20/25 08:08 01/19/25 15:22 Labs: Laboratory Results - last 48 hr 01/19/25 01/19/25 01/19/25 15:21 15:22 16:55 WBC 6.8 RBC 2.91 L Hgb 9.8 L Hct 28.6 L MCV 98.3 H MCH 33.7 H MCHC 34.3 RDW 14.6 Plt Count 126 L MPV 11.5 Immature Gran % (Auto) 0.3 Neut % (Auto) 73.2 H Lymph % (Auto) 11.5 L [place] % (Auto) 9.6 Eos % (Auto) 5.3 H Baso % (Auto) 0.1 Lymph # (Auto) 0.8 L [place] # (Auto) 0.7 Eos # (Auto) 0.4 Baso # (Auto) 0.0 Abs Immat Gran (auto) 0.02 Absolute Neuts (auto) 5.0 Absolute Nucleated RBC 0.000 Nucleated RBC % (auto) 0.0 PT 67.8 H D INR 5.9 H* D Sodium 139 Potassium 5.1 Chloride 110 H Carbon Dioxide 22 Anion Gap 12 BUN 38 H Creatinine 1.61 H Estim Creat Clear Calc 50.7 Estimated GFR 42 Random Glucose 104 Lactic Acid 0.8 Calcium 8.4 D Magnesium 1.6 Total Bilirubin 0.4 AST 30 ALT 13 Alkaline Phosphatase 121 H Troponin I High Sens 17.4 NT-Pro-B Natriuret Pep 2192.1 H Total Protein 6.7 Albumin 3.8 TSH 2.08 Urine Color Yellow Urine Appearance Clear Urine pH 5.5 Ur Specific [place] 1.010 Urine Protein Negative Urine Glucose (UA) Negative Urine Ketones Negative Urine Blood Negative Urine Nitrite Negative Ur Leukocyte Esterase Negative Stool Occult Blood 01/19/25 01/20/25 23:59 08:08 WBC 7.2 RBC 3.15 L Hgb 10.7 L Hct 31.0 L MCV 98.4 H MCH 34.0 H MCHC 34.5 RDW 14.6 Plt Count 126 L MPV 10.8 Immature Gran % (Auto) 0.1 Neut % (Auto) 76.2 H Lymph % (Auto) 11.2 L [place] % (Auto) 6.8 Eos % (Auto) 5.3 H Baso % (Auto) 0.4 Lymph # (Auto) 0.8 L [place] # (Auto) 0.5 Eos # (Auto) 0.4 Baso # (Auto) 0.0 Abs Immat Gran (auto) 0.01 Absolute Neuts (auto) 5.5 Absolute Nucleated RBC 0.000 Nucleated RBC % (auto) 0.0 PT 65.4 H INR 5.7 H* Sodium Potassium Chloride Carbon Dioxide Anion Gap BUN Creatinine Estim Creat Clear Calc Estimated GFR Random Glucose Lactic Acid Calcium Magnesium Total Bilirubin AST ALT Alkaline Phosphatase Troponin I High Sens NT-Pro-B Natriuret Pep Total Protein Albumin TSH Urine Color Urine Appearance Urine pH Ur Specific [place] Urine Protein Urine Glucose (UA) Urine Ketones Urine Blood Urine Nitrite Ur Leukocyte Esterase Stool Occult Blood NEGATIVE Mental Status Exam Mental Status Exam Narrative: in bed hospital clothing. Clear cognitive impairment consistent with Established dementia. Some irritability evident. is internally preoccupied consistent with hallucinations. Not understanding of where he is, current situation. Was also unable to identify the people next to him which were his and daughter Medications Allergies Allergies Allergy/AdvReac Type Severity Reaction Status Date / Time metformin AdvReac Intermediate Stomach Verified 01/19/25 15:02 Upset Assessment & Plan Assessment & Plan (1) Lewy body dementia with agitation: Status: Acute Code(s): G31.83 - Neurocognitive disorder with Lewy bodies; F02.811 - Dementia in other diseases classified elsewhere, unspecified severity, with agitation Plan Discussed at length options which include either increasing Seroquel while also monitoring dizziness, sedation and blood pressure, although they have not been largely problematic on current dosing. Other options include Risperdal 0.5 mg twice daily and 0.5 mg as needed but this could worsen parkinsonism or aripiprazole 5-10 mg but this would take longer to have clear benefit. Overall we agreed to increase Seroquel to 75 mg twice daily for 1-2 days and then increase to 100 mg twice daily if there are no side effects. Has an appointment with her neurologist on Tuesday01/23/2025. also discussed managing at home versus inpatient [facility] setting. Overall decided to trial medication changes at home. If ongoing difficulty managing patient at home in terms of a woman wrist, increasing agitation or distress and no benefit from medications or significant side effects, then inpatient [facility] would be appropriate next step and they would pursue same through emergency room and crisis services Total time managing care of this patient today ____ minutes.
--- NOTE | 2025-01-20 15:17 | PC.NURSE ---
P's blood pressure was 78/42 after ambulating him a few steps and sitting at edge of bed. Pt denies dizziness. Provider notified.
[2025-01-20] MEDS: Lactated Ringers 1,000 ML 500 ML IV (16:06)
--- NOTE | 2025-01-20 18:30 | PC.NURSE ---
Family voices concerns for pt's safety going home tonight, even in an ambulance. they think he will fall because he has not napped or eaten today. Requesting EMS ride home in the morning when he is typically better.
--- NOTE | 2025-01-20 22:52 | PC.NURSE ---
RN called [facility] for [facility] rec- they were closed. RN then called pts to get pts med rec. Med rec done over the phone per MD request.
--- NOTE | 2025-01-21 02:15 | PC.NURSE ---
Pt was moved to a hospital bed for more comfort. No complaints at this time. Pt is resting comfortably in new bed. Respirations even and unlabored. No apparent distress.
[2025-01-21 07:40] VITALS: BP 124/57; PULSE 63; RESP 16; TEMP 36.6; O2SAT 97
--- NOTE | 2025-01-21 08:47 | PC.NURSE ---
Care of Pt assumed at change of shift (7a) Pt rests quietly in beds. Pt appears to have removed his own IV access--catheter noted to be hanging out of skin. Minor bleeding cleansed and gauze applied. Attempted to medicate Pt with AM meds, Pt refused. Will re-attempt later in shift.
--- NOTE | 2025-01-21 09:30 | MHC.CM.ED ---
Patient remains in ER. Attempted to speak to Ana, via telephone at [phone]. Left voicemail requesting return telephone call. Continue to monitor for d/c needs.
--- NOTE | 2025-01-21 09:58 | MHC.CM.ED ---
Patient's Ana and daughter Disha are at bedside. Met to discuss d/c planning. Patient will d/c home via BLS at 12pm. [facility] Ana and Disha verbalize understanding. Med [facility] with chart. Patient, Disha Perez, Deanne RN and Ana ROSS aware. Continue to monitor for d/c needs.
[2025-01-21 10:27] VITALS: BP 124/54; PULSE 59; O2SAT 95
[2025-01-21 10:57] LABS: Glucose, Whole Blood 104 mg/dL (60-115)
[2025-01-21 11:12] LABS: Prothrombin Time 62.8 SEC (10.9-12.4)
[2025-01-21 11:15] LABS: INTERNATIONAL NORM RATIO 5.5 (0.9-1.1)
[2025-01-21 13:15] VITALS: BP 124/54; PULSE 59; RESP 17; TEMP -17.7; TEMP 0; O2SAT 95
== END 2025-01-21 13:20 | disposition home or self-care (01) ==
PROVIDERS: Physician Assistant Medical; Student in an Organized Health Care Education/Training Program; Emergency Provider Emergency Medicine; PCP Physician Assistant Medical
DX: G31.83 Neurocognitive disorder with Lewy bodies (principal); F02.811 Dementia in other diseases classified elsewhere, unspecified severity, with agitation; R79.89 Other specified abnormal findings of blood chemistry; I95.9 Hypotension, unspecified; R06.02 Shortness of breath; R11.0 Nausea; R94.31 Abnormal electrocardiogram [ECG] [EKG]; Z79.899 Other long term (current) drug therapy
CPT/HCPCS: 36415; 70450; 71045; 80053; 81003; 82272; 82947; 83605; 83735; 83880; 84443; 84484; 85025; 85610; 93005; 96360; 96361; 96372; 99285; J2250; J2359; J7120

== ENCOUNTER → 2025-01-19 15:15 | Outpatient (BNV) | payer MEDICARE, SELFPAY | PROVIDERS: Emergency Provider Student in an Organized Health Care Education/Training Program; PCP Physician Assistant Medical; Visit Provider Radiology Diagnostic Radiology | DX: I61.9 Nontraumatic intracerebral hemorrhage, unspecified (principal); I95.9 Hypotension, unspecified | CPT/HCPCS: 70450; 71045 ==

== ENCOUNTER → 2025-01-19 15:18 | Outpatient (BNV) | payer MEDICARE, SELFPAY | PROVIDERS: Emergency Provider Emergency Medicine; PCP Physician Assistant Medical; Visit Provider Psychiatry & Neurology Psychiatry | DX: G31.83 Neurocognitive disorder with Lewy bodies (principal); F02.811 Dementia in other diseases classified elsewhere, unspecified severity, with agitation | CPT/HCPCS: 99284 ==

== ENCOUNTER → 2025-01-19 23:22 | Outpatient (BNV) | payer MEDICARE, SELFPAY | PROVIDERS: Emergency Provider Emergency Medicine; PCP Physician Assistant Medical; Visit Provider Internal Medicine | DX: R94.31 Abnormal electrocardiogram [ECG] [EKG] (principal); Z95.0 Presence of cardiac pacemaker | CPT/HCPCS: 93010 ==

== ENCOUNTER 2025-01-23 09:21 | Outpatient (AMB) | payer MEDICARE, SELFPAY ==
--- NOTE | 2025-01-23 09:25 | A.OFFVIS_ITS ---
Intake Visit Reasons: 3m dementia Allergies metformin Adverse Reaction (Intermediate, Verified 01/21/25 15:29) Stomach Upset HPI Comments Details: The patient is a 74-year-old male presenting with management of agitation and hallucinations secondary to dementia with Lewy bodies. His agitation manifests with significant irritability and outbursts, especially during evening hours, often involving inappropriate behavioral expressions and paranoid tendencies. These acute episodes were highlighted during a recent hospital admission due to dehydration and orthostatic hypotension. Despite intravenous rehydration, the patient continues to demonstrate challenges with maintaining adequate fluid intake, necessitating behavioral strategies to improve compliance. Hallucinations are a daily occurrence, with the patient engaging in prolonged periods of speech, sometimes lasting up to 20 minutes. His general mood is marked by mood swings, worsened by awakening and startle reactions. There is a noted decline in his engagement with former interests, including television and hands-on activities. Care strategies involve management by altering his medication regimen, notably transitioning from quetiapine to risperidone in alignment with recommendations by psychiatric care providers to address symptom control. [facility] Medical History (Updated 01/23/25 @ 09:27 by Rui Hidalgo MD) Parkinsonism, secondary Dementia with Lewy bodies Cerebral microvascular disease Cerebral atrophy Dementia Morbid obesity Cough Asthma-COPD overlap syndrome Steroid dependence COPD (chronic obstructive pulmonary disease) Eosinophilic asthma Surgical History (Updated 10/29/24 @ 09:07 by Susie Rivera [facility]) S/P cardiac pacemaker procedure Family History (Updated 09/17/24 @ 09:24 by Halle Mcconnell MA) Mother No problems noted. Father No problems noted. Social History Household Members: Spouse Housing: House Do you presently have visiting nurse or other home services: No Patient Tobacco Use Status: Former Tobacco user e-Cigarette/Vaping Use: Former Use service: No Current occupational status: retired Current occupational exposures/hazards: No Cognitive needs: Yes (cane) Hearing needs: No Vision needs: Yes (rx galsses) Review of Systems Const Details: - Neurological: Reports agitation, hallucinations, mood swings. - Cardiovascular: Reports low blood pressure. - Gastrointestinal: Reports decreased appetite during recent hospitalization. - General: Reports dehydration, significant fatigue affecting daily activities. Physical Exam Neuro Other: Mental Status: Alert and awake, talking, following one step commands. Cranial Nerves: CN II: Visual swanson full to confrontation, visual acuity intact. CN III, IV, : Pupils equal, round, reactive to light and accommodation. Extraocular movements are normal. CN V: Facial sensation is normal. CN VII: Facial movements symmetrical. CN VIII: Hearing intact to bedside conversation is normal. CN IX, X: Palate elevates symmetrically. CN XI: Shoulder shrug and head turn symmetrical. CN XII: Tongue midline without atrophy or fasciculations. In wheel chair. Speech: Normal; no dysarthria or tremor. Assessment & Plan Assessment & Plan (1) Dementia with Lewy bodies: Comment: [place] brain [place] [facility] [place]: Mod diff atrophy and mod MVD Code(s): G31.83 - Neurocognitive disorder with Lewy bodies; F02.80 - Dementia in other diseases classified elsewhere, unspecified severity, without behavioral disturbance, psychotic disturbance, mood disturbance, and anxiety Category: Medical Qualifiers: Dementia severity: severe Dementia behavioral or psychological symptom: without behavioral, psychotic, or mood disturbance or anxiety Qualified Code(s): G31.83 - Neurocognitive disorder with Lewy bodies; F02.C0 - Dementia in other diseases classified elsewhere, severe, without behavioral disturbance, psychotic disturbance, mood disturbance, and anxiety Plan Impression: Moderate to severe dementia, probably of dementia with Lewy body type Rec: a: Sertraline 50mg one a day b: DC Quetiapine c: Risperidone 0.5mg bid and one more a day as needed For dehydration, enhancing oral intake will be a rossi focus, with techniques to encourage consumption. The potential risks and benefits of each medication adjustment were reviewed, ensuring caregiver involvement in monitoring and reporting changes in symptoms or side effects. I highlighted the need for a supportive care environment to mitigate agitation risks and promote wellbeing. Medications: New risperidone 0.5 mg PO BID 180 tabs 0RF Refilled sertraline 50 mg PO DAILY 90 tabs 0RF Coding Level of Care Code Est Pt Level 4 (73770) Diagnoses Severe Lewy body dementia without behavioral disturbance, psychotic disturbance, mood disturbance, or anxiety G31.83; F02.C0 Dementia severity: severe Dementia behavioral or psychological symptom: without behavioral, psychotic, or mood disturbance or anxiety
== END 2025-01-23 09:42 | disposition home or self-care (01) ==
LOC: HO.HSM 09:22
PROVIDERS: PCP Internal Medicine; Visit Provider Psychiatry & Neurology Neurology
DX: G31.83 Neurocognitive disorder with Lewy bodies (principal); F02.C0 Dementia in other diseases classified elsewhere, severe, without behavioral disturbance, psychotic disturbance, mood disturbance, and anxiety
CPT/HCPCS: 99214

== ENCOUNTER → 2025-01-23 09:21 | Outpatient (BNVA) | payer MEDICARE, SELFPAY | PROVIDERS: PCP Internal Medicine; Visit Provider Psychiatry & Neurology Neurology | DX: G31.83 Neurocognitive disorder with Lewy bodies (principal); F02.C0 Dementia in other diseases classified elsewhere, severe, without behavioral disturbance, psychotic disturbance, mood disturbance, and anxiety | CPT/HCPCS: 99212 ==

== ENCOUNTER 2025-01-31 08:10 | Outpatient (REF) | payer MEDICARE, SELFPAY ==
--- OUTSIDE RECORDS SUMMARY | 2025-01-31 08:15 | XMS_ITS | Patient Health Record ---
Author Organization [facility] Address [address] [place] [address] Care Team Providers Care Gate Cutter Name Role Phone Bonnie (RETIRED) Jaden CHERRY Primary Care Provide r Tyrese Dejesus Jr Unavailable [phone] Reason For Referral No Information Medications [...] GM As directed Orally Over the specified time.; Duration: 1 day(s) 10/30/2014 Active Immunizations Vaccine Route Administration Date Status Comme nts Flu vaccine no Preserv 3 and > Unknown 12/26/2013 Admin istered Problems Problem Type SNOMED Code ICD Code Onset Dates Problem Status W/U Status Risk Notes Problem Screening for colon cancer (239680092) Screening for colon cancer (V76.51) Active confirmed Problem Long-term current use of anticoagulant (155058632) Long-term (current) use of anticoagulants (V58.61) Active confirmed Plan Of Treatment Future Test Test Name Order Date COLONOSCOPY 10/30/2014 Insurance Providers Payer Name Payer Address Payer Phone Subscriber Number Group Number Insured Name Patient Relationship to Insured Coverage Start Date Coverage End Date MEDICARE OF [place] [address] [place] [address] [phone] [id number] SHAMEKA MCCRAY Self - patient is the insured [facility] [address] [place] [address] [id number] Self - patient is the insured Medical (General) History Medical History History ICD Code 02/08/2004 colonoscopoy hypertension elevated blood sugar aortic stenosis sleep apnea Surgical History Surgery Date(Month/Year) umbilical hernia repair aortic valve replacement, [facility] Medic al valve October 2004 coronary artery bypass open heart surgery cardiac pacemeker 2011
--- OUTSIDE RECORDS SUMMARY | 2025-01-31 08:15 | XMS_ITS | Clinical Summary ---
Author Organization [facility] Address [address] [address] Phone Care Team Providers Care Job Captain Name Role Phone Oscar Cruz MD Primary [...] file Insurance MEDICARE PART A & B [facility] MEDICARE SUPPLEMENT MEDICARE PART A & B MEDICARE SUPPLEMENT MEDICARE PART A & B MEDICARE PART A & B MEDICARE PART A [place] [address] [place] [address] MEDICARE SUPPLEMENT MEDICARE PART A & B Member Subscriber Plan / Payer (Ef fective 2007-Present) Name:Manuel Vasquez Member ID:[id number] Relation to Subscriber:Self Name:Manuel Vasquez Subscriber ID:[id number] Payer ID:[id number] Group ID:Not on file Type:Medicare Address: [employer] [id number] MEDICARE PART A & B MEDICARE SUPPLEMENT MEDICARE PART A & B [facility] MEDICARE SUPPLEMENT MEDICARE PART A & B [facility] MEDICARE SUPPLEMENT Care Teams Job Captain Relationship Specialty Start Date End Date Oscar Cruz MD [address] [place] [address] [phone] PCP - General Internal Medicine 08/06/24 Additional Source Comments The information contained in this document represents components of the legal health record. It is not the complete legal health record.[facility]
[2025-01-31 09:52] LABS: INTERNATIONAL NORM RATIO 2.4 (0.9-1.1); Prothrombin Time 27.6 SEC (10.9-12.4)
== END 2025-01-31 08:11 | disposition home or self-care (01) ==
LOC: HO.LHD 08:10
PROVIDERS: Visit Provider Internal Medicine
DX: Z79.01 Long term (current) use of anticoagulants (principal)
CPT/HCPCS: 36415; 85610

== ENCOUNTER 2025-02-06 09:31 | Inpatient (IN) | payer MEDICARE, SELFPAY ==
--- NOTE | ~2025-02-06 | CT_ITS ---
EXAMINATION: CT CHEST WITHOUT IV CONTRAST INDICATION: hypoxia, cough COMPARISON: Correlation is made with an AP portable view of the chest performed earlier in the day. TECHNIQUE: Helical CT scan of the chest was performed without intravenous contrast. Coronal and sagittal reformatted images were generated and reviewed. This CT exam was performed with one or more of the following dose reduction techniques: automated exposure control, adjustment of the mA and/or kV according to patient size, use of iterative reconstruction technique. DLP: 543 mGy-cm CHEST: THYROID: The thyroid is unremarkable. LUNGS: There is bronchial wall thickening in the lower lobes, suggestive of bronchitis. There is subsegmental atelectasis at the lung bases. There are no focal airspace opacities. MEDIASTINUM: There is no mediastinal lymphadenopathy. JAZMYNE: Evaluation of the hilar regions is limited by lack of intravenous contrast material. CARDIOVASCULATURE: The heart is enlarged. A pacemaker is seen in place. The patient is status post aortic valve replacement. There is no pericardial effusion. There is dilatation of the ascending thoracic aorta measuring 4.4 cm in diameter. DEGREE OF CORONARY CALCIFICATION: severe, status post CABG PLEURA: There is no pleural effusion. No pneumothorax. MAIN AIRWAYS: The mainstem bronchi and proximal branches are patent. AXILLA: There is no axillary lymphadenopathy. BONES AND SOFT TISSUES: Unremarkable UPPER ABDOMEN: The visualized portions of the liver, spleen, and adrenals have an unremarkable unenhanced appearance. There is cholelithiasis. CT/CT chest wo IV con IMPRESSION: Bronchial wall thickening in the lower lobes, suggestive of bronchitis. No focal airspace opacity is identified. Electronically signed by: Irwin Cai MD 02/11/2025 09:45 AM EDT
--- NOTE | ~2025-02-06 | CT_ITS ---
EXAMINATION: CT HEAD WITHOUT CONTRAST CLINICAL INFORMATION: Increasing mental status changes; anticoagulation. COMPARISON: 01/19/2025. TECHNIQUE: Contiguous axial imaging was performed from the skull base to vertex without intravenous administration of contrast. This CT examination was performed using dose optimization techniques as appropriate, variously including the following: *Automated exposure control *Adjustment of mA and/or kV according to patient size (this includes techniques or standardized protocols for targeted exams where dose is matched to indication/reason for exam; i.e. extremities or head) *Use of iterative reconstruction technique FINDINGS: There is no evidence of intracranial hemorrhage or extra-axial fluid collection. There is no mass effect, or edema. No CT evidence of acute territorial infarct. Ventricles, sulci, and cisterns are mildly diffusely prominent, in keeping with age-related cerebral and cerebellar volume loss. No hydrocephalus. No midline shift. Negative hyperdense MCA sign. Negative insular ribbon sign. Patchy periventricular and deep white matter hypoattenuation is consistent with moderate small vessel ischemic changes. Normal pituitary. Globes and orbital contents image normally. No extracranial soft tissue abnormalities. The paranasal sinuses, mastoid air cells, and tympanic cavities are normally aerated. No suspicious bony abnormalities. There are no acute fractures evident. CT/CT head/brain wo IV con IMPRESSION: 1. No acute intracranial abnormality. 2. Stable chronic changes. Electronically signed by: Sundar Lee MD 02/06/2025 10:53 AM EDT
--- NOTE | ~2025-02-06 | XR_ITS ---
EXAMINATION: XR CHEST 1 VIEW HISTORY: sob COMPARISON: Comparison is made with the prior examination dated 01/19/2025. FINDINGS: A single AP portable view of the chest performed at 6:31 AM is submitted. A left subclavian dual-chamber pacemaker is unchanged in position. The lungs are expanded and clear. There is no pleural effusion, pneumothorax, or pulmonary vascular congestion. The heart is top normal in size. The patient is status post median sternotomy and valve replacement. There is degenerative disc disease of the spine. XR/XR chest 1V IMPRESSION: Borderline cardiomegaly. No acute cardiopulmonary abnormality. Electronically signed by: Irwin Cai MD 02/11/2025 08:11 AM EDT RP
[2025-02-06 09:49] VITALS: BP 115/56; BP 121/56; PULSE 60; PULSE 90; RESP 17; TEMP 36.6; O2SAT 93; O2SAT 95; BMI 39.6
--- NOTE | 2025-02-06 09:50 | ECG_ITS ---
Test Reason : weakness Blood Pressure : */* mmHG Vent. Rate : 60 BPM Atrial Rate : 61 BPM P-R Int : * ms QRS Dur : 196 ms QT Int : 504 ms P-R-T Axes : * -87 88 degrees QTcB Int : 504 ms Ventricular-paced rhythm Abnormal ECG When compared with ECG of 19-Jan-2025 23:34, Premature ventricular complexes are no longer Present Vent. rate has decreased by 7 bpm Referred By: Radha Naidu Electronically Signed By: GE WARD MD
[2025-02-06 09:55] VITALS: BP 121/56; PULSE 60; RESP 17; TEMP 36.6; O2SAT 93
--- NOTE | 2025-02-06 09:55 | ED_ITS ---
HPI - Psych General Chief Complaint: General Medical Stated Complaint: FAM STS CHANGES IN BEHAVIOR X3W,DEMENTIA Time Seen by Provider: 02/06/25 09:39 Source: patient, EMS and old records reviewed Mode of arrival: EMS Limitations: altered mental status History of Present Illness ED Provider: BEN HPI Narrative: 74 yo male with PMH of COPD, obesity, diabetes, lewy body dementia, HLD, AVR replacement on warfarin, PPM here with c/o increased aggression, dreams of chopping people up after a med change from risperdal BID to TID. Symptoms per family all started after med change. No falls, no infections reported. Family sent him for [facility] psych eval. He has no complaints on arrival. MD complaint: other Onset (ago): day(s) (few) Duration: getting worse History of same: Yes Relieving factors: none Exacerbating factors: medication Associated psychiatric symptoms: none Associated symptoms: denies other symptoms Treatments prior to arrival: none Related Data Home Medications ?Medication ?Instructions ?Recorded ?Confirmed atorvastatin 20 mg tablet 20 mg PO DAILY@1930 02/20/20 02/06/25 acetaminophen 500 mg tablet 1,000 mg PO DAILY PRN Pain 09/16/23 02/06/25 fluticasone 250 mcg-salmeterol 50 1 ea inhalation ALMITA Y for asthma 01/20/25 02/06/25 mcg/dose blistr powdr for inhalation (Wixela Inhub) insulin glargine 100 unit/mL (3 10 unit subcut DAILY P RN 01/20/25 02/06/25 mL) subcutaneous pen (Basaglar Hyperglycemia KwikPen U-100 Insulin) lisinopril 5 mg tablet 5 mg PO QAM 01/20/25 5 warfarin 5 mg tablet 5 mg PO SUTUTHSA 01/20/25 warfarin 2.5 mg tablet 2.5 mg PO MOWEFR 02/06/25 Previous Rx's ?Medication ?Instructions ?Recorded glipizide 10 mg tablet, extended 5 mg (1/2 x 10 mg) PO DAILY@0815 07/26/24 release 24 hr #90 tabs pen needle, diabetic 31 gauge x #200 ea 07/27/24 5/16 montelukast 10 mg tablet 10 mg PO BEDTIME for asthma #90 10/08/24 tabs metoprolol tartrate 25 mg tablet 25 mg PO BID #180 tab s 10/22/24 risperidone 0.5 mg tablet 0.5 mg PO BID #180 tabs 12/10 sertraline 50 mg tablet 50 mg PO DAILY #90 tabs 12/10 Allergies Allergy/AdvReac Type Severity Reaction Status Date / Time metformin AdvReac Intermediate Stomach Verified 02/06/25 09:52 Upset Review of Systems 2 Review of Systems: ROS unable to be obtained due to altered mental status FORMERLY [facility], [facility] Past Medical History Attestation statement: The following information was validated with the patient. Source: old records reviewed Medical History Parkinsonism, secondary Dementia with Lewy bodies Cerebral microvascular disease Cerebral atrophy Dementia Morbid obesity Cough Asthma-COPD overlap syndrome Steroid dependence COPD (chronic obstructive pulmonary disease) Eosinophilic asthma Surgical History S/P cardiac pacemaker procedure Family History Family History Mother No problems noted. Father No problems noted. Social History Social History Household Members: Spouse Housing: Unknown / Unable to assess Patient Tobacco Use Status: Former Tobacco user e-Cigarette/Vaping Use: Former Use service: No Current occupational status: retired Current occupational exposures/hazards: No Cognitive needs: Yes (cane) Hearing needs: No Vision needs: Yes (rx galsses) Physical Exam 2 Vital Signs: Vital Signs: Last Vital Signs Temp 98.5 F 02/13/25 08:12 Pulse 70 02/13/25 08:18 Resp 12 02/13/25 08:18 BP 135/70 02/13/25 08:12 Pulse Ox 93 02/13/25 08:12 O2 Del Method Room Air 02/13/25 08:12 O2 Flow Rate 2 02/11/25 07:57 BMI result Body Mass Index 39.6 Appearance: Alert. Oriented to self. No acute distress. Eyes: Pupils equal, round and reactive to light. ENT: Pharynx normal. Neck: Normal inspection. Neck supple. CVS: Normal heart rate and rhythm. Pulses normal. Respiratory: No respiratory distress. Breath sounds normal. Abdomen: Soft and nontender. Skin: Skin warm and dry. Normal skin color. Normal skin turgor. Extremities: No lower extremity edema. venous stasis changes in both legs no cellulitis mild redness with scab to L 3rd toe just on the dorsum Neuro: Oriented X 1. No motor deficit. No sensory deficit.fine tremors of hands and feet symmetric Course Course Course Narrative: Dr. Echeverria, 02/06/2025, 17:57: The patient was signed out to me at change of shift. The patient is a 74-year-old male with a history of dementia who has had increasing behavioral difficulties at home. His family does not feel that they can manage him at [place]. He has had a trial of different medications recently and the family is concerned that the patient has deterioration might be related to these medications. The patient has been seen earlier and medically cleared. A care team consult was placed. The care team requested a psychiatric consult. The patient has been seen by the psychiatric nurse practitioner. Recommendations are for [facility] psychiatric hospitalization. In the meantime they have recommended p.r.n. oral lorazepam which has been ordered. Since there may be some time for a psychiatric bed to be found the patient will be placed in physician observation. Of note the patient is on warfarin. He has a mechanical aortic valve so that his INR should be between 2.5 and 3.5. His INR today is 3.2. I spoke to the patient's family. This I confirmed that the patient's code status is DNR/DNI. Reevaluation(s) Reevaluation #1: Time: 06:05 Date: 02/07/25 Provider: Radha Naidu, DO Patient in physician observation for psychiatric evaluation.? No acute events reported overnight. No current complaints. VS stable.? Patient is in bed search status. Will follow INR today for his AVR, on oral abx so will need to monitor closely. Will continue to monitor. Time: 06:05 Date: 02/08/25 Provider: Radha Naidu, DO Patient in physician observation for psychiatric evaluation.? No acute events reported overnight. No current complaints. VS stable.? Patient is in bed search status. Will follow INR today for his AVR yesterday it was , on oral abx so will need to monitor closely. Will continue to monitor. Reevaluation #2: 10:35 PM 02/08/2025 (Dr. Kenton Hendrix): Nursing brought to my attention that the patient has been nonadherent with nearly any of his medications but specifically concerned about warfarin nonadherence for at least 2 days. The patient did have a morning INR 3.1 it is downtrending. Given the at least 2 days nonadherence I am concerned that she may have precipitous drop in INR and given the mechanical valve think it is reasonable until disposition is established and patient is behavioral we will allow for continued warfarin administration the patient be should be placed on b.i.d. Lovenox which I have ordered. The patient was agitated and in order to safely administer this this evening he did require chemical restraint he was briefly held down for the medication administration no limb restraints provided Reevaluation #3: Time: 05:26 Date: 02/09/25 Provider: Tra Weathers MD Patient in physician observation for psychiatric evaluation.? No acute events reported overnight. No current complaints. VS stable.? Patient is in bed search status.Will continue to monitor. Time: 08:16 Date: 02/10/25 Provider: Tra Weathers MD Patient in physician observation for psychiatric evaluation.? No acute events reported overnight. No current complaints. VS stable.? Patient is in bed search status.Will continue to monitor. Time: 06:00 Date: 02/11/25 Provider: Radha Naidu, Patient in physician observation for psychiatric evaluation.? This AM coughed and had what appeared to be mucous plug episode desaturated to 77%. He cannot offer complaints due to dementia? Patient is in bed search status. Will continue to monitor. On lovenox (did miss coumadin x 2 days but he was never below 3.1 and received lovenox instead), will recheck INR this AM just for last trend given it was 02/08. He is hypoxic on RA to 88% I am going to obtain CXR, labs, EKG. May need med admit EKG Rate: 76 Rhythm: paced Needham: left Normal P waves. Normal FERMIN. wide QRS complex. ST T wave : no RACHEL, paced rhythm, t wave inversions lateral leads qTC: 623 prior studies: no change from prior The study has been interpreted contemporaneously by me. he did miss coumadin but was never subtherapeutic - now on lovenox. He is newlyl requiring O2 did well with neb does have a hx of asthma/COPD. I am going to obtain CT scan of chest for aspiration if he allows it. If he continues to require O2 will admit to hospital as he is not medically cleared for alice psych hypoxia due to chronic lung disease and asthma anticipate admit for hypoxia at this time suspect chronic lung disease and not infection or severe sepsis Radha Naidu, DO 02/11/25 1005 Medications Administered Generic Name Dose Route Start Last Admin Trade Name Freq PRN Reason Stop Dose Admin Atorvastatin Calcium 20 mg 02/06/25 19:30 02/12/25 20:05 Atorvastatin Calcium 20 Mg Tablet PO 20 mg DAILY@1930 PEARL Administration Enoxaparin Sodium 120 mg 02/09/25 10:00 02/12/25 10:31 Enoxaparin Sodium 120 Mg/0.8 Ml Syringe SUBCUT 120 mg On Hold: 02/12/25 16:16 Q12H PEARL Administration Fluticasone/Vilanterol 1 puff 02/07/25 08:00 02/13/25 08:18 Fluticasone/Vilanterol 100/25 Blst.W.Dev INHALE 1 puff RDAILY PEARL Administration Glipizide 5 mg 02/07/25 08:15 02/13/25 09:28 Glipizide Xl 5 Mg Tab.Er.24 PO 5 mg DAILY@0815 PEARL Administration Doxycycline Hyclate 100 mg/ 250 mls @ 166.67 mls/hr 02/11/25 17:00 02/13/25 05:49 Sodium Chloride IV Infused Q12H [facility] Infusion Insulin Human Lispro 0 unit 02/11/25 11:30 02/13/25 08:14 Insulin Lispro 100 Unit/Ml 3 Ml Vial SUBCUT Not Given QIDACHS [facility] Protocol Lisinopril 5 mg 02/06/25 11:30 02/13/25 09:28 Lisinopril 5 Mg Tablet PO 5 mg DAILY PEARL Administration Protocol Melatonin 6 mg 02/11/25 10:38 02/12/25 20:05 Melatonin 3 Mg Tablet PO 6 mg BEDTIME PRN Administration Insomnia Methylprednisolone Sodium Succinate 40 mg 02/11/25 17:00 02/13/25 04:19 Methylprednisolone Sod Succ 40 Mg/Ml Vial IVPUSH 40 mg Q12H PEARL Administration Metoprolol Tartrate 25 mg 02/06/25 21:00 02/13/25 09:28 Metoprolol Tartrate 25 Mg Tablet PO 25 mg BID PEARL Administration Protocol Montelukast Sodium 10 mg 02/06/25 21:00 02/12/25 20:05 Montelukast Sodium 10 Mg Tablet PO 10 mg BEDTIME PEARL Administration Quetiapine Fumarate 25 mg 02/08/25 17:28 02/12/25 13:15 Quetiapine Fumarate 25 Mg Tablet PO 25 mg BID PRN Administration agitation Rivastigmine Tartrate 1.5 mg 02/08/25 21:00 02/13/25 09:28 Rivastigmine Tartrate 1.5 Mg Capsule PO 1.5 mg BID PEARL Administration Sertraline HCl 50 mg 02/07/25 09:00 02/13/25 09:28 Sertraline Hcl 50 Mg Tablet PO 50 mg DAILY PEARL Administration Sodium Chloride 3 ml 02/11/25 16:00 02/13/25 09:28 0.9 % Sodium Chloride Flush 3 Ml Syringe IVFLUSH 3 ml QSHIFT PEARL Administration Discontinued Medications Generic Name Dose Route Start Last Admin Trade Name Freq PRN Reason Stop Dose Admin Calcium Carbonate 750 mg 02/07/25 10:26 02/07/25 11:30 Calcium Carbonate 750 Mg Tab.Chew PO 02/07/25 10:27 Not Given ONCE ONE Cephalexin HCl 500 mg 02/06/25 15:00 02/11/25 09:37 Cephalexin 500 Mg Capsule PO 02/11/25 14:59 500 mg TID PEARL Administration Albuterol Sulfate 2.5 mg/ 0 mg 02/11/25 06:42 02/11/25 06:45 Albuterol/Ipratropium 3 ml INHALE 02/11/25 06:43 5 dose ONCE ONE Administration Diazepam 5 mg 02/08/25 20:03 02/08/25 20:10 Diazepam 10 Mg/2 Ml Cartridge IM 02/08/25 20:04 5 mg STAT STA Administration Enoxaparin Sodium 120 mg 02/08/25 20:02 02/08/25 21:07 Enoxaparin Sodium 120 Mg/0.8 Ml Syringe 1 mg/kg (120 mg) 02/08/25 20:03 120 mg SUBCUT Administration ONCE ONE Doxycycline Hyclate 100 mg/ 250 mls @ 166.67 mls/hr 02/11/25 09:59 02/11/25 18:10 Sodium Chloride IV 02/11/25 11:28 Not Given ONCE ONE Dextrose 500 mls @ 100 mls/hr 02/12/25 17:00 02/12/25 18:28 D5w IVCONT 02/12/25 21:59 Not Given .Q5H PEARL Dextrose 500 mls @ 100 mls/hr 02/12/25 18:30 02/12/25 23:02 D5w IVCONT 02/12/25 21:59 Infused .Q5H PEARL Infusion Methylprednisolone Sodium Succinate 60 mg 02/11/25 09:59 02/11/25 18:10 Methylprednisolone Sod Succ 125 Mg/2 Ml Vial IVPUSH 02/11/25 10:00 Not Given ONCE ONE Nystatin 1 appl 02/07/25 10:26 02/07/25 12:36 Nystatin Powder 15 Gm Bottle TOPICAL 02/07/25 10:27 1 appl ONCE ONE Administration Protocol Olanzapine 5 mg 02/08/25 07:55 02/08/25 08:10 Olanzapine 10 Mg Vial IM 02/08/25 07:56 5 mg STAT STA Administration Olanzapine 10 mg 02/08/25 20:02 02/08/25 20:10 Olanzapine 10 Mg Vial IM 02/08/25 20:03 10 mg ONCE ONE Administration Olanzapine 5 mg 02/09/25 17:47 02/09/25 18:05 Olanzapine 5 Mg Tablet PO 02/09/25 17:48 Not Given ONCE ONE Olanzapine 5 mg 02/09/25 17:58 02/09/25 18:06 Olanzapine 10 Mg Vial IM 02/09/25 17:59 5 mg STAT STA Administration Olanzapine 5 mg 02/11/25 10:23 02/11/25 10:30 Olanzapine 10 Mg Vial IM 02/11/25 10:24 5 mg STAT STA Administration Olanzapine 5 mg 02/11/25 20:34 02/11/25 20:42 Olanzapine 10 Mg Vial IM 02/11/25 20:35 5 mg ONCE ONE Administration Risperidone 0.5 mg 02/06/25 21:00 02/08/25 10:15 Risperidone 0.5 Mg Tablet PO Not Given BID [facility] Warfarin Sodium 5 mg 02/07/25 18:00 02/07/25 18:38 Warfarin Sodium 5 Mg Tablet PO Not Given [id number] [facility] Warfarin Sodium 2.5 mg 02/08/25 18:00 02/08/25 20:07 Warfarin Sodium 2.5 Mg Tablet PO Not Given [id number] [facility] Medical Decision Making Medical Decision Making [facility] Narrative: 74 yo male with PMH of COPD, obesity, diabetes, lewy body dementia, HLD, AVR replacement on warfarin, PPM here with behavior changes after med change - he has no signs of head trauma he has no focal neuro symptoms, he is confused at baseline, will obtain labs and refer to CARE team once medically cleared. CT head ordered for ICH given acute change and coumadin use Differential Diagnosis Differential Diagnoses: The differential diagnosis associated with the presentation includes dementia, med changes, no signs of head trauma to suggest ICH Admission/Observation Consideration of admission/observation: Escalation of care including admission/observation considered phys observation started at 1015am pending work up and CARE team input start on cephalexin for toe cellulitis Consult Healthcare Provider Management of the patient was discussed with: Behavioral Health Provider Lab Data [facility] Lab Attestation statement: I reviewed the patient's lab results. H/H at baseline INR 3.2 02/13/25 06:30 02/13/25 06:30 Labs: Lab Results 02/06/25 02/06/25 02/07/25 Range/Units 10: 13:51 06:27 WBC 7.0 (4.8-10.8) X10*3/uL RBC 2.95 L (4.60-5.80) X10*6/uL Hgb 9.7 L (14.0-18.0) g/dl Hct 29.5 L (42.0-52.0) % MCV 100.0 H (80.0-98.0) fL MCH 32.9 (27.0-33.0) pg MCHC 32.9 (31.0-36.0) g/dl RDW 14.3 (11.0-16.0) % Plt Count 113 L (160-400) X10*3/uL MPV 11.3 (9.4-12.4) fL Immature Gran % (Auto) 0.1 (0.0-0.4) % Neut % (Auto) 75.9 H (45-73) % Lymph % (Auto) 10.4 L (20-40) % [place] % (Auto) 9.6 (2-11) % Eos % (Auto) 3.7 (0-4) % Baso % (Auto) 0.3 (0-2) % Lymph # (Auto) 0.7 L (1.2-4.9) X10*3/uL [place] # (Auto) 0.7 (0.1-1.2) X10*3/uL Eos # (Auto) 0.3 (0.0-0.4) X10*3/uL Baso # (Auto) 0.0 (0.0-0.2) X10*3/uL Abs Immat Gran (auto) 0.01 (0.00-0.03) X10*3/uL Absolute Neuts (auto) 5.3 (2.0-8.3) x10*3/uL Absolute Nucleated RBC 0.000 (0.0-0.012) X10*3/uL Nucleated RBC % (auto) 0.0 (0.0-0.2) /100WBC PT 37.3 H D 38.1 H (10.9-12.4) SEC INR 3.2 H 3.3 H (0.9-1.1) Sodium 138 (135-145) mmol/L Potassium 4.6 (3.3-5.1) mmol/L Chloride 109 H (96-108) mmol/L Carbon Dioxide 25 (22-29) mmol/L Anion Gap 9 L (12-20) BUN 35 H (9-16) mg/dL Creatinine 1.38 (0.5-1.4) mg/dL Estim Creat Clear Calc 55.0 Estimated GFR 50 POC Glucose (60-115) mg/dL Random Glucose 114 (60-115) mg/dL Calcium 9.1 D (8.4-10.2) mg/dL Magnesium 1.7 (1.6-2.6) mg/dL Total Bilirubin 0.7 (0.0-1.0) mg/dL Direct Bilirubin 0.3 (0.0-0.5) mg/dL AST 27 (5-37) U/L ALT 14 (0-40) U/L Alkaline Phosphatase 132 H (39-117) U/L Troponin I High Sens (<3.5-35.0) ng/L NT-Pro-B Natriuret Pep (<300) pg/mL Total Protein 6.7 (6.5-8.0) g/dL Albumin 4.1 (3.5-5.0) g/dL Lipase 16 (8-78) U/L Urine Color Yellow Urine Appearance Clear Urine pH 5.0 (5.0-9.0) Ur Specific Kohler <= 1.005 (1.005-1.025) Urine Protein Negative (Neg-Trace) mg/dL Urine Glucose (UA) Negative (Negative) mg/dL Urine Ketones Negative (Negative) mg/dL Urine Blood Negative (Negative) Urine Nitrite Negative (Negative) Ur Leukocyte Esterase Negative (Negative) Urine Opiates Screen Not Detected (Not Detect) Ur Buprenorphine Scrn Not Detected (Not Detect) ng/mL Ur Oxycodone Screen Not Detected (Not Detect) ng/mL Urine Methadone Screen Not Detected (Not Detect) ng/mL Urine Fentanyl Screen Not Detected (Not Detect) Ur Barbiturates Screen Not Detected (Not Detect) Ur Phencyclidine Scrn Not Detected (Not Detect) Ur Amphetamines Screen Not Detected (Not Detect) U Benzodiazepines Scrn Not Detected (Not Detect) Urine Cocaine Screen Not Detected (Not Detect) U Marijuana (THC) Screen Not Detected (Not Detect) COVID-19 (KRANTHI) (Negative) COVID-19 Clin Com 02/08/25 02/10/25 02/11/25 Range/Units 09:46 08:23 08:06 WBC 10.3 (4.8-10.8) X10*3/uL RBC 3.62 L D (4.60-5.80) X10*6/uL Hgb 12.1 L D (14.0-18.0) g/dl Hct 36.9 L D (42.0-52.0) % MCV 101.9 H (80.0-98.0) fL MCH 33.4 H (27.0-33.0) pg MCHC 32.8 (31.0-36.0) g/dl RDW 13.9 (11.0-16.0) % Plt Count 151 L D (160-400) X10*3/uL MPV 10.5 (9.4-12.4) fL Immature Gran % (Auto) 0.6 H (0.0-0.4) % Neut % (Auto) 82.8 H (45-73) % Lymph % (Auto) 6.9 L (20-40) % [place] % (Auto) 7.3 (2-11) % Eos % (Auto) 2.2 (0-4) % Baso % (Auto) 0.2 (0-2) % Lymph # (Auto) 0.7 L (1.2-4.9) X10*3/uL [place] # (Auto) 0.8 (0.1-1.2) X10*3/uL Eos # (Auto) 0.2 (0.0-0.4) X10*3/uL Baso # (Auto) 0.0 (0.0-0.2) X10*3/uL Abs Immat Gran (auto) 0.06 H (0.00-0.03) X10*3/uL Absolute Neuts (auto) 8.5 H (2.0-8.3) x10*3/uL Absolute Nucleated RBC 0.000 (0.0-0.012) X10*3/uL Nucleated RBC % (auto) 0.0 (0.0-0.2) /100WBC PT 36.1 H Cancelled (10.9-12.4) SEC INR 3.1 H (0.9-1.1) Sodium (135-145) mmol/L Potassium (3.3-5.1) mmol/L Chloride (96-108) mmol/L Carbon Dioxide (22-29) mmol/L Anion Gap (12-20) BUN (9-16) mg/dL Creatinine (0.5-1.4) mg/dL Estim Creat Clear Calc Estimated GFR POC Glucose 125 H (60-115) mg/dL Random Glucose (60-115) mg/dL Calcium (8.4-10.2) mg/dL Magnesium (1.6-2.6) mg/dL Total Bilirubin (0.0-1.0) mg/dL Direct Bilirubin (0.0-0.5) mg/dL AST (5-37) U/L ALT (0-40) U/L Alkaline Phosphatase (39-117) U/L Troponin I High Sens (<3.5-35.0) ng/L NT-Pro-B Natriuret Pep (<300) pg/mL Total Protein (6.5-8.0) g/dL Albumin (3.5-5.0) g/dL Lipase (8-78) U/L Urine Color Urine Appearance Urine pH (5.0-9.0) Ur Specific Kohler (1.005-1.025) Urine Protein (Neg-Trace) mg/dL Urine Glucose (UA) (Negative) mg/dL Urine Ketones (Negative) mg/dL Urine Blood (Negative) Urine Nitrite (Negative) Ur Leukocyte Esterase (Negative) Urine Opiates Screen (Not Detect) Ur Buprenorphine Scrn (Not Detect) ng/mL Ur Oxycodone Screen (Not Detect) ng/mL Urine Methadone Screen (Not Detect) ng/mL Urine Fentanyl Screen (Not Detect) Ur Barbiturates Screen (Not Detect) Ur Phencyclidine Scrn (Not Detect) Ur Amphetamines Screen (Not Detect) U Benzodiazepines Scrn (Not Detect) Urine Cocaine Screen (Not Detect) U Marijuana (THC) Screen (Not Detect) COVID-19 (KRANTHI) (Negative) COVID-19 Clin Com 02/11/25 02/11/25 Range/Units 08:06 08:06 WBC (4.8-10.8) X10*3/uL RBC (4.60-5.80) X10*6/uL Hgb (14.0-18.0) g/dl Hct (42.0-52.0) % MCV (80.0-98.0) fL MCH (27.0-33.0) pg MCHC (31.0-36.0) g/dl RDW (11.0-16.0) % Plt Count (160-400) X10*3/uL MPV (9.4-12.4) fL Immature Gran % (Auto) (0.0-0.4) % Neut % (Auto) (45-73) % Lymph % (Auto) (20-40) % [place] % (Auto) (2-11) % Eos % (Auto) (0-4) % Baso % (Auto) (0-2) % Lymph # (Auto) (1.2-4.9) X10*3/uL [place] # (Auto) (0.1-1.2) X10*3/uL Eos # (Auto) (0.0-0.4) X10*3/uL Baso # (Auto) (0.0-0.2) X10*3/uL Abs Immat Gran (auto) (0.00-0.03) X10*3/uL Absolute Neuts (auto) (2.0-8.3) x10*3/uL Absolute Nucleated RBC (0.0-0.012) X10*3/uL Nucleated RBC % (auto) (0.0-0.2) /100WBC PT 29.1 H (10.9-12.4) SEC INR Cancelled 2.5 H (0.9-1.1) Sodium 145 (135-145) mmol/L Potassium 4.3 (3.3-5.1) mmol/L Chloride 107 (96-108) mmol/L Carbon Dioxide 27 (22-29) mmol/L Anion Gap 15 (12-20) BUN 35 H (9-16) mg/dL Creatinine 1.10 (0.5-1.4) mg/dL Estim Creat Clear Calc 69.0 Estimated GFR > 60 POC Glucose (60-115) mg/dL Random Glucose 137 H (60-115) mg/dL Calcium 9.5 (8.4-10.2) mg/dL Magnesium 1.8 (1.6-2.6) mg/dL Total Bilirubin 0.7 (0.0-1.0) mg/dL Direct Bilirubin 0.4 (0.0-0.5) mg/dL AST 31 (5-37) U/L ALT 13 (0-40) U/L Alkaline Phosphatase 127 H (39-117) U/L Troponin I High Sens 19.5 (<3.5-35.0) ng/L NT-Pro-B Natriuret Pep 968.6 H (<300) pg/mL Total Protein 7.4 (6.5-8.0) g/dL Albumin 4.1 (3.5-5.0) g/dL Lipase (8-78) U/L Urine Color Urine Appearance Urine pH (5.0-9.0) Ur Specific Kohler (1.005-1.025) Urine Protein (Neg-Trace) mg/dL Urine Glucose (UA) (Negative) mg/dL Urine Ketones (Negative) mg/dL Urine Blood (Negative) Urine Nitrite (Negative) Ur Leukocyte Esterase (Negative) Urine Opiates Screen (Not Detect) Ur Buprenorphine Scrn (Not Detect) ng/mL Ur Oxycodone Screen (Not Detect) ng/mL Urine Methadone Screen (Not Detect) ng/mL Urine Fentanyl Screen (Not Detect) Ur Barbiturates Screen (Not Detect) Ur Phencyclidine Scrn (Not Detect) Ur Amphetamines Screen (Not Detect) U Benzodiazepines Scrn (Not Detect) Urine Cocaine Screen (Not Detect) U Marijuana (THC) Screen (Not Detect) COVID-19 (KRANTHI) Negative (Negative) COVID-19 Clin Com See Note Independent Interpretation I performed an independent interpretation of an: EKG and CT Scan (no ICH) Interpretation: Rate: 60 Rhythm: V paced [place]ham: left Normal QRS complex. ST T wave : no RACHEL, paced rhythm qTC: 504 prior studies: no change The study has been interpreted contemporaneously by me. . Radiology Impression Discussion of test interpretation with radiology: I have reviewed the radiologist's reading. Independent Historian Clinical information obtained from an independent historian. History obtained from or confirmed by: Spouse and EMS External Record Review External record reviewed: Inpatient record and Outpatient record Discharge Plan Discharge Clinical Impression: Dementia Qualifiers: Dementia type: Lewy body dementia Dementia severity: severe Dementia behavioral or psychological symptom: without behavioral, psychotic, or mood disturbance or anxiety Qualified Code(s): G31.83 - Neurocognitive disorder with Lewy bodies Cellulitis of toe Qualifiers: Laterality: left Qualified Code(s): L03.032 - Cellulitis of left toe Asthma Qualifiers: Asthma severity: moderate Asthma persistence: persistent Asthma complication type: with acute exacerbation Qualified Code(s): J45.41 - Moderate persistent asthma with (acute) exacerbation Patient Disposition: Admitted As Inpatient Interventions: Admission Worksheet (ED) Last Done: 02/11/25 11:45 Discharge Date/Time: 02/11/25 12:37
[2025-02-06 10:33] LABS: MANUAL DIFF FLAG NO
[2025-02-06 10:42] LABS: Hematocrit 29.5 % (42.0-52.0); Hemoglobin 9.7 g/dl (14.0-18.0); Imm Gran Abs Auto 0.01 X10*3/uL (0.00-0.03); Imm Gran Pct Auto 0.1 % (0.0-0.4); Lymphocytes Absolute Auto 0.7 X10*3/uL (1.2-4.9); Mean Corpuscular HGB Conc 32.9 g/dl (31.0-36.0); Mean Corpuscular Hemoglobin 32.9 pg (27.0-33.0); Mean Corpuscular Volume 100.0 fL (80.0-98.0); NRBC Abs Auto 0.000 X10*3/uL (0.0-0.012); NRBC Pct Auto 0.0 /100WBC (0.0-0.2); Platelet Count 113 X10*3/uL (160-400); Red Blood Count 2.95 X10*6/uL (4.60-5.80); White Blood Count 7.0 X10*3/uL (4.8-10.8)
[2025-02-06 10:51] LABS: Alanine Aminotransferase 14 U/L (0-40); Albumin Level 4.1 g/dL (3.5-5.0); Alkaline Phosphatase 132 U/L (39-117); Anion Gap 9 (12-20); Aspartate Amino Transferase 27 U/L (5-37); Blood Urea Nitrogen 35 mg/dL (9-16); Calcium 9.1 mg/dL (8.4-10.2); Carbon Dioxide 25 mmol/L (22-29); Chloride 109 mmol/L (96-108); Creatinine Clr Calc Pharmacy 55.0; Estimated Glomerular Filt Rate 50; INTERNATIONAL NORM RATIO 3.2 (0.9-1.1); Lipase 16 U/L (8-78); Magnesium 1.7 mg/dL (1.6-2.6); Potassium 4.6 mmol/L (3.3-5.1); Prothrombin Time 37.3 SEC (10.9-12.4); Sodium 138 mmol/L (135-145); Total Protein 6.7 g/dL (6.5-8.0)
[2025-02-06 11:56] VITALS: BP 121/53; PULSE 62; RESP 18; O2SAT 95
--- NOTE | 2025-02-06 12:02 | PC.NURSE ---
Pt comes to ED today via EMS for family concerns of increased agitation, aggression, and violent dreams. Family at bedside reports Pt has been exhibiting threatening and destructive behaviors at home. Additionally Pt will have long periods of extreme agitation with restlessness, outbursts, and pacing. While and daughter report Pt has good PO intake he has been non-compliant with self care and will often not allow for them to assist him with changing his clothing/brief. Pt reports he is followed by psych and was advised to return to ED at last [facility] visit for bandar psych placement if Pts symptoms progressed. and Daughter states their wish is for bandar psych placement at this time. Pt is alert and oriented x1. Calm and cooperative. VSS, afebrile. Med rec complete with . Noted change to Risperdal 0.5mg from BID to TID. Spoke with Krishan in Pharmacy to report change was not saved at time med rec entered by this RN. Krishan reports pharmacy med rec staff have spoke with family as well and are working to complete med list, and will make note of change to risperdal. Pt awaiting Care Team consult. NAD noted at this time. Pt resting quietly with family at bedside.
--- NOTE | 2025-02-06 12:26 | PHA.MEDREC ---
Pharmacy Consult ? Medication Reconciliation Pharmacy has completed the medication reconciliation. Spoke to Ana and daughter Disha at bedside who confirmed patient's medication list. Per Ana, patient takes wixela only once a day (he forgets the evening dose). His blood sugar is tested everyday and if it is high then use 10 units of basaglar ( it has been good lately ). His risperidone dose was recently changed from bid to tid but hasn't started the new dose yet (Dr. Naidu is aware of the new dose but since he hasn't started it yet then keeping the old dose). Ana also confirmed that his warfarin dose from 01/30/25 to 02/13/25 is 2.5 mg tuesday/tuesday/tuesday and 5 mg tuesday/tuesday//tuesday. He no longer takes quetiapine (ended on 02/02/25). Last dose of medications was last night 02/05/25.
--- NOTE | 2025-02-06 13:07 | MHC.CARE ---
Pt is a psych consult at this time.
[2025-02-06 13:16] VITALS: BP 109/55
[2025-02-06 13:58] LABS: Appearance Urine Clear; Glucose Urine UA Negative (Negative); PH 5.0 (5.0-9.0); Specific Gravity - Urine <= 1.005 (1.005-1.025)
[2025-02-06 14:10] LABS: Cannabinoid Screen Urine Not Detected (Not Detect)
--- NOTE | 2025-02-06 15:18 | MHC.CARE ---
Per psych consult Pt will now be IPLOC. Section 12a in chart. ED provider in agreement.
--- NOTE | 2025-02-06 15:43 | P.CNPS_ITS ---
History of Present Illness Date of Service: 02/06/2025 Chief Complaint: FAM STS CHANGES IN BEHAVIOR X3W,DEMENTIA Reason for Consult: Worsening behavior at home. Dementia Requesting physician: Emanuel Echeverria Discussed with referring provider: Yes Sources of Information: patient interviewed and chart reviewed HPI Narrative: 74 yo male with PMH of COPD, obesity, diabetes, lewy body dementia, HLD, AVR replacement on warfarin, PPM [place] [facility] [place] with c/o increased aggression, dreams of chopping people up after a med change from risperdal BID to TID. Symptoms per family all started after med change. No falls, no infections reported. Family sent him for bandar psych eval. He has no complaints on This provider found the patient lying in his stretcher in his room in the ED. His and daughter were at bedside. He is alert and oriented only to his name. He does not remember his or daughter. When asked about his birthday, he states I don't have one. He is hyperverbal, not loud, and not able to engage in a conversation. The according to his and daughter, patient has been good and calm today and not his baseline. They states that at home, the patient has been screaming, swearing, lifting heavy objects, including TV, and breaking things. He is not able and does not remember to perform ADLs/IADLs; however, he becomes irritable and angry when assistance is offered. The patient also threatened to harm his family. They also notes some auditory and visual hallucinations and paranoia. His symptoms have been on going since he was diagnosed with Lewy body dementia about a year ago. His symptoms intensified after he started taking risperidone 0.5 mg twice daily on 01/23/2025. Patient's and daughter also states that the patient was previously on Seroquel 50 mg twice daily that was not effective for his behavior. He notes that the patient has been compliant with his medications. His and daughter states that he will be challenging to care for the patient at this time and therefore requests admission to inpatient geriatric for placement to a long-term facility. Past Psychiatric History: See above Medical Evaluation Reviewed: Yes [facility] Medical History Parkinsonism, secondary Dementia with Lewy bodies Cerebral microvascular disease Cerebral atrophy Dementia Morbid obesity Cough Asthma-COPD overlap syndrome Steroid dependence COPD (chronic obstructive pulmonary disease) Eosinophilic asthma Surgical History S/P cardiac pacemaker procedure Social History: lives at home with . Supportive daughter Diagnostics Vital Signs (24Hr): Vital Signs - 24 hr 02/06/25 09:49 02/06/25 09:55 02/06/25 11:56 Temperature 97.9 F 97.9 F Pulse Rate 60 60 62 Respiratory Rate 17 17 18 Blood Pressure 121/56 L 121/56 L 121/53 L Pulse Oximetry 93 93 95 Oxygen Delivery Method Room Air Room Air Room Air 02/06/25 13:16 Temperature Pulse Rate Respiratory Rate Blood Pressure 109/55 L Pulse Oximetry Oxygen Delivery Method BMI result Body Mass Index 39.6 Labs 02/06/25 10:25 02/06/25 10:25 Labs: Laboratory Results - last 48 hr 02/06/25 02/06/25 10:25 13:51 WBC 7.0 RBC 2.95 L Hgb 9.7 L Hct 29.5 L MCV 100.0 H MCH 32.9 MCHC 32.9 RDW 14.3 Plt Count 113 L MPV 11.3 Immature Gran % (Auto) 0.1 Neut % (Auto) 75.9 H Lymph % (Auto) 10.4 L [place] % (Auto) 9.6 Eos % (Auto) 3.7 Baso % (Auto) 0.3 Lymph # (Auto) 0.7 L [place] # (Auto) 0.7 Eos # (Auto) 0.3 Baso # (Auto) 0.0 Abs Immat Gran (auto) 0.01 Absolute Neuts (auto) 5.3 Absolute Nucleated RBC 0.000 Nucleated RBC % (auto) 0.0 PT 37.3 H D INR 3.2 H Sodium 138 Potassium 4.6 Chloride 109 H Carbon Dioxide 25 Anion Gap 9 L BUN 35 H Creatinine 1.38 Estim Creat Clear Calc 55.0 Estimated GFR 50 Random Glucose 114 Calcium 9.1 D Magnesium 1.7 Total Bilirubin 0.7 Direct Bilirubin 0.3 AST 27 ALT 14 Alkaline Phosphatase 132 H Total Protein 6.7 Albumin 4.1 Lipase 16 Urine Color Yellow Urine Appearance Clear Urine pH 5.0 Ur Specific [place] <= 1.005 Urine Protein Negative Urine Glucose (UA) Negative Urine Ketones Negative Urine Blood Negative Urine Nitrite Negative Ur Leukocyte Esterase Negative Urine Opiates Screen Not Detected Ur Buprenorphine Scrn Not Detected Ur Oxycodone Screen Not Detected Urine Methadone Screen Not Detected Urine Fentanyl Screen Not Detected Ur Barbiturates Screen Not Detected Ur Phencyclidine Scrn Not Detected Ur Amphetamines Screen Not Detected U Benzodiazepines Scrn Not Detected Urine Cocaine Screen Not Detected U Marijuana (THC) Screen Not Detected Imaging Radiology Impressions: ITS Impressions Head CT 02/06/25 10:31 IMPRESSION: 1. No acute intracranial abnormality. 2. Stable chronic changes. Electronically signed by: Sundar Lee MD 02/06/2025 10:53 AM EDT RP Mental Status Exam Mental Status Exam Narrative: Appearance: Casually dressed, adequate hygiene, unkempt hair Behavior: Anxious, irritable, uncooperative throughout the interview. Minimal eye contact, and there are signs of psychomotor agitation, no signs of psychomotor retardation Speech: Talkative, not loud, mumbles at times Thought process: Unable to assess Thought content: Unable to assess Mood: Anxious Affect: Mood-congruent SI: Unable to assess HI: Unable to assess VH/AH: Family reports Delusions: Paranoid delusion per family Insight/judgment: Impaired insight and judgment Memory/cog: Alert and oriented to self Medications Medications Current Medications Acetaminophen (Acetaminophen 325 Mg Tablet) 975 mg PO DAILY PRN PRN Reason: Pain, Mild 1-3,fever,headache Atorvastatin Calcium (Atorvastatin Calcium 20 Mg Tablet) 20 mg PO DAILY@1930 [facility] Cephalexin HCl (Cephalexin 500 Mg Capsule) 500 mg PO TID [facility] Stop: 02/11/25 14:59 Fluticasone/Vilanterol (Fluticasone/Vilanterol 100/25 Blst.W.Dev) 1 puff INHALE RDAILY [facility] Glipizide (Glipizide Xl 5 Mg Tab.Er.24) 5 mg PO DAILY@0815 [facility] Insulin Glargine (Insulin Glargine,Hum.Rec.Anlog 100 Unit/Ml 10 Ml Vial) 10 unit SUBCUT DAILY PRN PRN Reason: HYPERGLYCEMIA Lisinopril (Lisinopril 5 Mg Tablet) 5 mg PO DAILY [facility]; Protocol Last Admin: 02/06/25 13:16 Dose: Not Given Lorazepam (Lorazepam 0.5 Mg Tablet) 0.5 mg PO Q6H PRN PRN Reason: Anxiety Metoprolol Tartrate (Metoprolol Tartrate 25 Mg Tablet) 25 mg PO BID [facility]; Protocol Montelukast Sodium (Montelukast Sodium 10 Mg Tablet) 10 mg PO BEDTIME [facility] Risperidone (Risperidone 0.5 Mg Tablet) 0.5 mg PO BID [facility] Sertraline HCl (Sertraline Hcl 50 Mg Tablet) 50 mg PO DAILY [facility] Warfarin Sodium (Warfarin Sodium 5 Mg Tablet) 5 mg PO SuTuThSa@1800 PEARL Warfarin Sodium (Warfarin Sodium 2.5 Mg Tablet) 2.5 mg PO MoWeFr@1800 [facility] Allergies Allergies Allergy/AdvReac Type Severity Reaction Status Date / Time metformin AdvReac Intermediate Stomach Verified 02/06/25 09:52 Upset Assessment & Plan Assessment & Plan (1) Dementia with Lewy bodies: Qualifiers: Dementia behavioral or psychological symptom: without behavioral, psychotic, or mood disturbance or anxiety Dementia severity: severe Qualified Code(s): G31.83 - Neurocognitive disorder with Lewy bodies; F02.C0 - Dementia in other diseases classified elsewhere, severe, without behavioral disturbance, psychotic disturbance, mood disturbance, and anxiety Status: Acute Code(s): G31.83 - Neurocognitive disorder with Lewy bodies; F02.80 - Dementia in other diseases classified elsewhere, unspecified severity, without behavioral disturbance, psychotic disturbance, mood disturbance, and anxiety Plan HPI: 74 yo male with PMH of COPD, obesity, diabetes, lewy body dementia, HLD, AVR replacement on warfarin, PPM [place] [facility] [place] with c/o increased aggression, dreams of chopping people up after a med change from risperdal BID to TID. Symptoms per family all started after med change. No falls, no infections reported. Family sent him for bandar psych eval. He has no complaints on This provider found the patient lying in his stretcher in his room in the ED. His and daughter were at bedside. He is alert and oriented only to his name. He does not remember his or daughter. When asked about his birthday, he states I don't have one. He is hyperverbal, not loud, and not able to engage in a conversation. The according to his and daughter, patient has been good and calm today and not his baseline. They states that at home, the patient has been screaming, swearing, lifting heavy objects, including TV, and breaking things. He is not able and does not remember to perform ADLs/IADLs; however, he becomes irritable and angry when assistance is offered. The patient also threatened to harm his family. They also notes some auditory and visual hallucinations and paranoia. His symptoms have been on going since he was diagnosed with Lewy body dementia about a year ago. His symptoms intensified after he started taking risperidone 0.5 mg twice daily on 01/23/2025. Patient's and daughter also states that the patient was previously on Seroquel 50 mg twice daily that was not effective for his behavior. He notes that the patient has been compliant with his medications. His and daughter states that he will be challenging to care for the patient at this time and therefore requests admission to inpatient geriatric for placement to a long-term facility. Plan Patient has been observed closely by nursing and unit staff throughout admission; patient has not engaged in any behaviors that suggest dangerousness to self or others and has demonstrated appropriate behaviors and impulse control. However, he has been exhibiting aggressive behavior and paranoia at home. Today, he has been ?good? and ?calm,? per his family at bedside. Patient is in imminent risk of harm to self or others. Therefore, he meets the criteria for inpatient psychiatric hospitalization for mood stabilization and placement to long-term care facility. Recommended: Ativan 0.5 every 6 hours as needed for anxiety/agitation. Continue current treatment regimen Total time managing care of this patient today ____ minutes. Guardian/Caregiver educated on: diagnosis, medication risk/benefits and therapeutic strategies
[2025-02-06 16:07] VITALS: BP 112/58; PULSE 76; RESP 18; O2SAT 94
--- NOTE | 2025-02-06 16:29 | PC.NURSE ---
Addendum entered by Deanne Lee RN 02/06/25 18:00: Two follow up attempts made to medicate Pt with Keflex and PRN Ativan. Pt adamantly refuses to take meds. Will continue to attempt Original Note: Attempt to medicate Pt with scheduled Keflex and PRN ativan. Pt refuses to take medications despite encouragement. Pt offered pudding in effort to encourage med compliance with no success. Will re-attempt to medicate Pt at a later time.
[2025-02-06 19:05] VITALS: BP 134/66; PULSE 68; RESP 18; O2SAT 98
--- NOTE | 2025-02-06 19:05 | PC.NURSE ---
this rn assume care of pt, attempted to medicate pt at this time but pt refused. janel. aware
--- NOTE | 2025-02-06 19:40 | PC.NURSE ---
pt placed in hospital bed for safety and comfort, bed alarm in place, incontinence care provided
--- NOTE | 2025-02-06 20:25 | PC.NURSE ---
pt continues to refuse all medications at this time.
--- NOTE | 2025-02-07 04:29 | PC.NURSE ---
pt given tea and crackers per request at this time, pt eating with no difficulty
--- NOTE | 2025-02-07 05:06 | PC.NURSE ---
pt noted to have skin tare to left elbow that had previous bandaid on it, bandaid removed and gauze wrapped
[2025-02-07 05:54] VITALS: BP 131/68; PULSE 58; RESP 14; TEMP 36.4; O2SAT 100
[2025-02-07 06:41] LABS: INTERNATIONAL NORM RATIO 3.3 (0.9-1.1); Prothrombin Time 38.1 SEC (10.9-12.4)
--- NOTE | 2025-02-07 07:43 | PC.NURSE ---
Assumed care of pt at 0700. Pt resting in bed quietly, incontinent of urine- bed linens changed, pt washed up. Red/itchy rashes noted in patients folds. Skin tear noted to left elbow- cleaned, dressing applied and wrapped. Placed on a purewick d/t incontinence. Pt repositioned upright in bed, given breakfast tray. Resting quietly in bed, call mejia within reach, all needs met at this time.
--- NOTE | 2025-02-07 09:35 | PC.NURSE ---
Pt refusing morning medications- this RN educated pt on need for medications/what used for. Pt continues to decline morning meds. Will reattempt at a later time.
--- NOTE | 2025-02-07 13:55 | MHC.EDTECH ---
pt refused vitals.
--- NOTE | 2025-02-07 20:05 | MHC.EDTECH ---
Attempted to do patient vitals and he started getting combative. Nurse aware
--- NOTE | 2025-02-07 21:35 | PC.NURSE ---
Addendum entered by Mehnaz Olvera RN 02/08/25 02:17: pt awake, offered medications, food/water, pt continues to refuse treatment and speaking nonsensically. Original Note: pt refusing medications and vs at this time. attempted to educate the pt on importance of taking medications and obtaining vital signs, pt appears confused/disoriented, and speaking nonsensically. pt unable to demonstrate understanding due to confusions, continues to refuse treatment. provider aware, will reattempt to medicate and obtain vital signs when patients condition allows.
[2025-02-08 01:01] VITALS: RESP 16
[2025-02-08] MEDS: OLANZapine 10 MG VIAL 5 MG IM (08:10)
[2025-02-08 08:55] VITALS: BP 125/57; PULSE 67; RESP 18
[2025-02-08 09:10] VITALS: BP 118/68; PULSE 82; RESP 18; O2SAT 96
--- NOTE | 2025-02-08 09:52 | PC.NURSE ---
Care of Pt assumed at change of shift (0700.) Pt noted to be significantly agitated. During attempt to change linens and obtain PT/INR draw, Pt was verbally threatening, swinging and kicking at staff, and uncooperative. RT attempted to see Pt for scheduled medication and reports unable to administer as Pt attempted to swing at her. Behavior reported to MD Naidu who orders IM Zyprexa 5mg. 08: Pt medicated with IM Zyprexa per JUN. Unable to obtain initial VS due to Pt exhibiting violence towards staff. Pt with 1:[address] and attempt to acquire VS [id number] per policy. Minimal improvement with Zyprexa overall. Pt continues to be uncooperative, verbally threatening however physical violence noted to decrease some. VS and PT/INR able to be obtained with 2 staff at bedside. Will continue to monitor.
[2025-02-08 09:57] LABS: INTERNATIONAL NORM RATIO 3.1 (0.9-1.1); Prothrombin Time 36.1 SEC (10.9-12.4)
--- NOTE | 2025-02-08 11:58 | PC.NURSE ---
Serval attempts made to medicate Pt with scheduled AM meds. Pt refuses and often replies with thoughts not based in this reality. Will continue to offer Pt medications and will medicate if/when the opportunity presents itself.
--- NOTE | 2025-02-08 14:41 | MHC.EDTECH ---
pt found incontinent of urine and stool. With three total staff members to assist d't pt being aggressive during this process, ricardo care was done, bed linens were changed
--- NOTE | 2025-02-08 16:16 | PC.NURSE ---
Pt found to have dried blood on linens and incontinent of urine. R great toenail noted to be attached by small amount of skin and dried blood noted in between 3rd and 4th toes. Pt provided with clean linens. Pt combative, swinging and threatening staff throughout n process. This RN attempts to cleanse R foot of dried blood. Pt unable to tolerated, he kicks and threatens this RN. Foot cleansed to best of ability given Pts violent behavior. Band aide applied to R great toe nail to avoid further trauma. ED provider notified. Provider at bedside to examine. R great toe nail falls off. Verbal orders given to apply xeroform and gauze wrapping to R great toe and R 3rd toe. Dressing applied as ordered. Pt tolerated with some redirection needed.
--- NOTE | 2025-02-08 17:33 | PM.PSYCN ---
History of Present Illness Date of Service: 02/08/25 Chief Complaint: FAM STS CHANGES IN BEHAVIOR X3W,DEMENTIA Reason for Consult: psych consult f/u for med recommendations on managing agitation Requesting physician: Radha Naidu Discussed with referring provider: Yes Sources of Information: patient interviewed and chart reviewed Additional Sources of Information: Care team requested that t/w assess pt to make further med recommendations as appropriate. Pt was writhing around in his bed, tangled in his sheets, naked. There is blood dripping from one of his toes. He has not cooperated with most aspects of his care. He has refused oral meds. Received IM olanzapine 5 mg this am at 8 due to agitation. Per his nurse, pt made verbal threats, smashed a tv, ripped curtains, reportedly told his that he had a dream of chopping people up at home. He wa up all night last night. Per nursing note- During attempt to change linens and obtain PT/INR draw, Pt was verbally threatening, swinging and kicking at staff, and uncooperative. RT attempted to see Pt for scheduled medication and reports unable to administer as Pt attempted to swing at her. Behavior reported to MD Naidu who orders IM Zyprexa 5mg. 0810: Pt medicated with IM Zyprexa per JUN. Unable to obtain initial VS due to Pt exhibiting violence towards staff. Pt with 1:[address] and attempt to acquire VS [id number] per policy. Minimal improvement with Zyprexa overall. Pt continues to be uncooperative, verbally threatening however physical violence noted to decrease some. VS and PT/INR able to be obtained with 2 staff at bedside. Will continue to monitor. 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 Supportive daughter Diagnostics Vital Signs (24Hr): Vital Signs - 24 hr 02/08/25 01:01 02/08/25 08:55 02/08/25 09:10 Pulse Rate 67 82 Respiratory Rate 16 18 18 Blood Pressure 125/57 L 118/68 Pulse Oximetry 96 Oxygen Delivery Method Room Air Room Air BMI result Body Mass Index 39.6 Labs 02/06/25 10:25 02/06/25 10:25 Labs: Laboratory Results - last 48 hr 02/07/25 02/08/25 06:27 09:46 PT 38.1 H 36.1 H INR 3.3 H 3.1 H Imaging Radiology Impressions: ITS Impressions Head CT 02/06/25 10:31 IMPRESSION: 1. No acute intracranial abnormality. 2. Stable chronic changes. Electronically signed by: Sundar Lee MD 02/06/2025 10:53 AM EDT RP Mental Status Exam Mental Status Exam Narrative: appearance- as noted above Motor activity-- hyperactive Speech- mumbled, difficult to understand mood- unable to assess affect- anxious unable to assess remaining ROS Medications Medications Current Medications Acetaminophen (Acetaminophen 325 Mg Tablet) 975 mg PO DAILY PRN PRN Reason: Pain, Mild 1-3,fever,headache Atorvastatin Calcium (Atorvastatin Calcium 20 Mg Tablet) 20 mg PO DAILY@1930 [facility] Last Admin: 02/07/25 19:17 Dose: Not Given Cephalexin HCl (Cephalexin 500 Mg Capsule) 500 mg PO TID [facility] Stop: 02/11/25 14:59 Last Admin: 02/08/25 16:43 Dose: Not Given Fluticasone/Vilanterol (Fluticasone/Vilanterol 100/25 Blst.W.Dev) 1 puff INHALE RDAILY [facility] Last Admin: 02/08/25 08:01 Dose: Not Given Glipizide (Glipizide Xl 5 Mg Tab.Er.24) 5 mg PO DAILY@0815 [facility] Last Admin: 02/08/25 10:15 Dose: Not Given Insulin Glargine (Insulin Glargine,Hum.Rec.Anlog 100 Unit/Ml 10 Ml Vial) 10 unit SUBCUT DAILY PRN PRN Reason: HYPERGLYCEMIA Lisinopril (Lisinopril 5 Mg Tablet) 5 mg PO DAILY [facility]; Protocol Last Admin: 02/08/25 10:14 Dose: Not Given Lorazepam (Lorazepam 0.5 Mg Tablet) 0.5 mg PO Q6H PRN PRN Reason: Anxiety Metoprolol Tartrate (Metoprolol Tartrate 25 Mg Tablet) 25 mg PO BID [facility]; Protocol Last Admin: 02/08/25 10:15 Dose: Not Given Montelukast Sodium (Montelukast Sodium 10 Mg Tablet) 10 mg PO BEDTIME [facility] Last Admin: 02/07/25 21:34 Dose: Not Given Quetiapine Fumarate (Quetiapine Fumarate 25 Mg Tablet) 25 mg PO BID PRN PRN Reason: agitation Rivastigmine Tartrate (Rivastigmine Tartrate 1.5 Mg Capsule) 1.5 mg PO BID [facility] Sertraline HCl (Sertraline Hcl 50 Mg Tablet) 50 mg PO DAILY [facility] Last Admin: 02/08/25 10:15 Dose: Not Given Warfarin Sodium (Warfarin Sodium 5 Mg Tablet) 5 mg PO SuTuThSa@1800 [facility] Last Admin: 02/07/25 18:38 Dose: Not Given Warfarin Sodium (Warfarin Sodium 2.5 Mg Tablet) 2.5 mg PO MoWeFr@1800 [facility] Allergies Allergies Allergy/AdvReac Type Severity Reaction Status Date / Time metformin AdvReac Intermediate Stomach Verified 02/06/25 09:52 Upset Assessment & Plan Assessment & Plan (1) Lewy body dementia with agitation: Status: Acute Code(s): G31.83 - Neurocognitive disorder with Lewy bodies; F02.811 - Dementia in other diseases classified elsewhere, unspecified severity, with agitation Plan Lewy Body Dementia with agitation Treatment Recs: This global technical writer took the liberty of making the following med changes- D/C risperidone due to risk of exacerbating parkinsons sx. Switched to quetiapine 25 mg qhs + 25 mg bid prn for agitation (which has less risk of exacerbating the parkinsons). -Monitor QTc Started rivastigmine 1.5 mg bid, which can potentially improve attention, reduce hallucinations/delusions and anxiety -monitor for nausea/vomiting/dizziness Ideally avoid first generation antipsychotics (including haldol) and higher potency atypical antipsychotics s/a olanzapine and risperidone since they have a higher risk of exacerbating motor sx of parkinsons. Total time managing care of this patient today _45___ minutes. Guardian/Caregiver educated on: medication risk/benefits Informed Consent: does not understand
[2025-02-08] MEDS: OLANZapine 10 MG VIAL IM (20:10)
[2025-02-08] MEDS: diazePAM 10 MG/2 ML CARTRIDGE 5 MG IM (20:10)
--- NOTE | 2025-02-08 20:17 | PC.NURSE ---
Addendum entered by Anila Munson RN 02/08/25 20:20: unable to obtain vitals. Original Note: assumed care of pt 191. pt is oriented to self only which is baseline. 1:1 sitter at bedside. patient verbally aggressive towards staff yelling things such as I'm going to kill you, unable to redirect. attempt to obtain vitals and patient is swinging and kicking at staff. per MD patient needed to receive warfarin medication and patient is refusing, attempted to provide patient baby doll from cart in overflow as this was reported to be helpful in the past and patient was not receptive. per MD, to give IM medications and if patient sedated enough, to obtain lab draws. unable to at this time. awaiting lovenox injection from pharmacy.
--- NOTE | 2025-02-08 21:01 | PC.NURSE ---
per MD chao d/c lab draws at this time. will continue with Lovenox injection until patient is agreeable to take PO meds then will resume warfarin order.
[2025-02-08 21:08] VITALS: BP 144/127; PULSE 80; RESP 18; O2SAT 95
--- NOTE | 2025-02-09 04:33 | PC.NURSE ---
patient remains resting comfortably in stretcher, eyes closed, resp even and unlabored, even chest rise and fall. 1:1 sitter at bedside.
--- NOTE | 2025-02-09 06:29 | PC.NURSE ---
it was difficult to change patient, combative and threatening during the process. with assistance of staff able to turn patient and change bed linen, patient had small amount of stool cleaned up ricardo care given. unable to obtain vitals d/t agitation, patient is flailing arms during BP. per MD Harris can hold off on PT/INR blood draw as patient is no longer receiving warfarin and currently receiving lovenox injections.
--- NOTE | 2025-02-09 07:17 | MHC.EDTECH ---
Patient is very aggressive.
[2025-02-09 10:07] VITALS: BP 108/84; PULSE 58
[2025-02-09 10:09] VITALS: BP 108/84; PULSE 58; RESP 16; O2SAT 92
--- NOTE | 2025-02-09 12:13 | MHC.EDTECH ---
Patent was incontinent, got cleaned up and brief on now.Patient has a skin tear in his elbow,which was cleaned up and cover with a dressing.
--- NOTE | 2025-02-09 12:14 | PC.NURSE ---
Pt was incontinent of urine. Pt cleaned and brief placed on pt. Family at bedside.
[2025-02-09 15:03] VITALS: BP 118/81; PULSE 60; RESP 16; TEMP 36.6; O2SAT 93
[2025-02-09] MEDS: OLANZapine 10 MG VIAL 5 MG IM (18:06)
--- NOTE | 2025-02-09 18:14 | PC.NURSE ---
Attempting to get vs and clean pt up as he soiled the bed, pt became very aggressive and violent. Grabbed this RN's arm and stated I will break your wrist . KRISSY rodrigues ordered.
--- NOTE | 2025-02-09 20:15 | PC.NURSE ---
pt became combative when nurse attempting to give po meds and Lovenox. patient grabbed this nurses hand and told to get the fuck out of here pt let go of hand without any additional issue. meds and accu check not done at this time
[2025-02-09 23:00] VITALS: BP 108/56; PULSE 73; RESP 18
--- NOTE | 2025-02-10 07:30 | PC.NURSE ---
assumed care of patient at 0700, patient is awake, yelling out. attempted to put gown on patient, patient started screaming and swinging at staff. patient has sitter at bedside for safety, attempting to hit staff during vitals, unable to obtain at this time, resp even and unlabored. patient yells out non sensical words and occasional swears. linens are dry and clean.
--- NOTE | 2025-02-10 08:25 | PC.NURSE ---
patient urinated in bed, completed bed change and patient cleaned up, refuses to wear gown but covers himself with it. patient resistant to care, yelling out and combative. patient poc 125. patient refusing to eat at this time.
[2025-02-10 08:26] LABS: Glucose, Whole Blood 125 mg/dL (60-115)
[2025-02-10 09:49] VITALS: BP 126/39; PULSE 97; RESP 20; TEMP 36.2; O2SAT 97
[2025-02-11] VITALS (17 sets, daily range): BP systolic 96–136; BP diastolic 58–69; PULSE 60–90; RESP 16–22; TEMP 36.2–36.8; O2SAT 88–97
--- NOTE | 2025-02-11 01:53 | PC.NURSE ---
Took over care from AROLDO Snyder at 23:00, pt sleeping at this time, no sign of distress.
--- NOTE | 2025-02-11 04:19 | PC.NURSE ---
place pt belonging in [facility] 3
[2025-02-11] MEDS: Albuterol Sulfate 2.5 MG, Albuterol/Iprat 2.5/0.5MG 3 ML 3 ML INHALE (06:45)
--- NOTE | 2025-02-11 06:47 | PC.NURSE ---
pt suctioned for increase sputum, respiratory treatment given, pt place on bedside monitor. pt repositioned for comfort.
--- NOTE | 2025-02-11 06:58 | PC.NURSE ---
chest x-ray taken, but on 2L nc
[2025-02-11] MEDS: Fluticasone/Vilanterol 100/25 BLST.W.DEV 1 PUFF INHALE (07:38)
--- NOTE | 2025-02-11 07:40 | ECG_ITS ---
Test Reason : DYSPNEA Blood Pressure : */* mmHG Vent. Rate : 76 BPM Atrial Rate : 59 BPM P-R Int : * ms QRS Dur : 182 ms QT Int : 554 ms P-R-T Axes : * -82 94 degrees QTcB Int : 623 ms Artifact in tracing Ventricular-paced rhythm Abnormal ECG When compared with ECG of 06-Feb-2025 09:59, No significant changes seen Referred By: Radha Naidu Electronically Signed By: BENJAMIN BERNARD
[2025-02-11 08:09] LABS: MANUAL DIFF FLAG NO
[2025-02-11 08:13] LABS: Hematocrit 36.9 % (42.0-52.0); Hemoglobin 12.1 g/dl (14.0-18.0); Imm Gran Abs Auto 0.06 X10*3/uL (0.00-0.03); Imm Gran Pct Auto 0.6 % (0.0-0.4); Lymphocytes Absolute Auto 0.7 X10*3/uL (1.2-4.9); Mean Corpuscular HGB Conc 32.8 g/dl (31.0-36.0); Mean Corpuscular Hemoglobin 33.4 pg (27.0-33.0); Mean Corpuscular Volume 101.9 fL (80.0-98.0); NRBC Abs Auto 0.000 X10*3/uL (0.0-0.012); NRBC Pct Auto 0.0 /100WBC (0.0-0.2); Platelet Count 151 X10*3/uL (160-400); Red Blood Count 3.62 X10*6/uL (4.60-5.80); White Blood Count 10.3 X10*3/uL (4.8-10.8)
[2025-02-11 08:25] LABS: Alanine Aminotransferase 13 U/L (0-40); Albumin Level 4.1 g/dL (3.5-5.0); Alkaline Phosphatase 127 U/L (39-117); Anion Gap 15 (12-20); Aspartate Amino Transferase 31 U/L (5-37); Blood Urea Nitrogen 35 mg/dL (9-16); Calcium 9.5 mg/dL (8.4-10.2); Carbon Dioxide 27 mmol/L (22-29); Chloride 107 mmol/L (96-108); Creatinine Clr Calc Pharmacy 69.0; Estimated Glomerular Filt Rate > 60; Magnesium 1.8 mg/dL (1.6-2.6); Potassium 4.3 mmol/L (3.3-5.1); Sodium 145 mmol/L (135-145); Total Protein 7.4 g/dL (6.5-8.0)
[2025-02-11 08:29] LABS: COVID-19 Test Negative (Negative); IDNOW Serial# 55D5AD1C
[2025-02-11 08:33] LABS: NT Pro B Type Natriuretic Pept 968.6 pg/mL (<300); Troponin-I High Sensitivity 19.5 ng/L (<3.5-35.0)
[2025-02-11 08:34] LABS: INTERNATIONAL NORM RATIO 2.5 (0.9-1.1); Prothrombin Time 29.1 SEC (10.9-12.4)
--- NOTE | 2025-02-11 09:15 | PC.NURSE ---
Pt to CT Scan at this time.
--- NOTE | 2025-02-11 10:07 | PC.NURSE ---
Pt combative and attempting to punch staff when placing nasal cannula in pt's nose.
[2025-02-11] MEDS: OLANZapine 10 MG VIAL 5 MG IM ×2 (10:30→20:42)
--- NOTE | 2025-02-11 10:35 | PC.NURSE ---
Pt incontinent of stool and urine. Multiple staff members and security required due to pt's agitation with care - pt attempting to punch and kick staff, verbally abusive. Pt medicated per MAR. Pt not keeping oxygen in his nose and refusing all vital signs.
--- NOTE | 2025-02-11 10:43 | P.HPHOSP_ITS ---
History of Present Illness Date of Service: 02/11/25 Attending physician on admission: Bg Arguelles Chief Complaint: Dyspnoea and hypoxia 74-year-old male, with a history of Lewy body dementia c/b agitation and visual hallucinations, COPD, T2 DM, mechanical AVR on warfarin (2-3), PPM placement, brought into hospital by family 02/06/2025 with increased agitation & hallucinations after medication change Risperdal b.i.d. to t.i.d.; bed hold in the ED pending [facility]-psych placement; c/b hypoxia today with increased agitation. The patient proves to be an extremely challenging historian. Non collaborative with history or physical examination; combative with staff. Displaying significant paranoid behaviors, without reassurance, or ability to redirect. Profound startle reflex noted. Majority of history was obtained via collateral and anecdotal. Patient presented 02/06/2025 with increased agitation and hallucinations after medication change. Risperdal was changed from twice a day to 3 times a day. Family brought the patient in. Home medications were resumed, psychiatry consulted on patient; recommending further change to medications. Today, he was noted to be hypoxic in the 70s, suspected to be due to mucus plugging. Patient was significantly resistant to NT suction. Persistent hypoxia despite clearance of mucus; requiring 2 L O2. Blood work obtained, revealing increase in white cells from 7-10, and neutrophilic shift present. Chest x-ray performed revealing bronchopulmonary crowding; CT scan consistent with bronchial thickening. No evidence of pleural effusion. On attempted evaluation of the patient, he grabbed my arm; said I was not a real doctor. He then threatened to punch me. I ended the visit early. During this, his hypoxia did not worsen, which is good news. 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 Father No problems noted. Surgical History S/P cardiac pacemaker procedure Social History Household Members: Spouse Housing: House Do you presently have visiting nurse or other home services: No Patient Tobacco Use Status: Former Tobacco user e-Cigarette/Vaping Use: Former Use service: No Current occupational status: retired Current occupational exposures/hazards: No Cognitive needs: Yes (cane) Hearing needs: No Vision needs: Yes (rx galsses) Meds Allergies Allergy/AdvReac Type Severity Reaction Status Date / Time metformin AdvReac Intermediate Stomach Verified 02/06/25 09:52 Upset Active Medications: Current Medications Acetaminophen (Acetaminophen 325 Mg Tablet) 975 mg PO DAILY PRN PRN Reason: Pain, Mild 1-3,fever,headache Atorvastatin Calcium (Atorvastatin Calcium 20 Mg Tablet) 20 mg PO DAILY@1930 [facility] Last Admin: 02/10/25 20:00 Dose: Not Given Calcium Carbonate (Calcium Carbonate 750 Mg Tab.Chew) 750 mg PO Q4H PRN PRN Reason: Heartburn Cephalexin HCl (Cephalexin 500 Mg Capsule) 500 mg PO TID [facility] Stop: 02/11/25 14:59 Last Admin: 02/11/25 09:37 Dose: 500 mg Enoxaparin Sodium (Enoxaparin Sodium 120 Mg/0.8 Ml Syringe) 120 mg SUBCUT Q12H [facility] Last Admin: 02/11/25 10:38 Dose: Not Given Fluticasone/Vilanterol (Fluticasone/Vilanterol 100/25 Blst.W.Dev) 1 puff INHALE RDAILY [facility] Last Admin: 02/11/25 07:38 Dose: 1 puff Glipizide (Glipizide Xl 5 Mg Tab.Er.24) 5 mg PO DAILY@0815 [facility] Last Admin: 02/10/25 09:38 Dose: Not Given Doxycycline Hyclate 100 mg/ (Sodium Chloride) 250 mls @ 166.67 mls/hr IV ONCE ONE Stop: 02/11/25 11:28 Insulin Glargine (Insulin Glargine,Hum.Rec.Anlog 100 Unit/Ml 10 Ml Vial) 10 unit SUBCUT DAILY PRN PRN Reason: HYPERGLYCEMIA Lisinopril (Lisinopril 5 Mg Tablet) 5 mg PO DAILY [facility]; Protocol Last Admin: 02/11/25 09:38 Dose: 5 mg Lorazepam (Lorazepam 0.5 Mg Tablet) 0.5 mg PO Q6H PRN PRN Reason: Anxiety Magnesium Hydroxide (Milk Of Magnesia 30 Ml Oral.Susp) 30 ml PO DAILY PRN PRN Reason: Constipation Melatonin (Melatonin 3 Mg Tablet) 6 mg PO BEDTIME PRN PRN Reason: Insomnia Metoprolol Tartrate (Metoprolol Tartrate 25 Mg Tablet) 25 mg PO BID [facility]; Protocol Last Admin: 02/11/25 09:37 Dose: 25 mg Montelukast Sodium (Montelukast Sodium 10 Mg Tablet) 10 mg PO BEDTIME [facility] Last Admin: 02/10/25 22:13 Dose: Not Given Quetiapine Fumarate (Quetiapine Fumarate 25 Mg Tablet) 25 mg PO BID PRN PRN Reason: agitation Last Admin: 02/11/25 09:38 Dose: 25 mg Rivastigmine Tartrate (Rivastigmine Tartrate 1.5 Mg Capsule) 1.5 mg PO BID [facility] Last Admin: 02/10/25 22:14 Dose: Not Given Sertraline HCl (Sertraline Hcl 50 Mg Tablet) 50 mg PO DAILY [facility] Last Admin: 02/11/25 09:38 Dose: 50 mg Sodium Chloride (0.9 % Sodium Chloride Flush 3 Ml Syringe) [facility] Medications ?Medication ?Instructions ?Recorded ?Confirmed ?Last Taken ?Type atorvastatin 20 mg tablet 20 mg PO DAILY@1930 02/20/20 02/06/25 02/05/25 History acetaminophen 500 mg tablet 1,000 mg PO DAILY PRN Pain 09/16/23 02/06/25 01/18/25 History 1000 mg fluticasone 250 mcg-salmeterol 50 1 ea inhalation ALMITA Y for asthma 01/20/25 02/06/25 02/05/25 History mcg/dose blistr powdr for inhalation (Wixela Inhub) insulin glargine 100 unit/mL (3 10 unit subcut DAILY P RN 01/20/25 02/06/25 Unknown History mL) subcutaneous pen (Basaglar Hyperglycemia KwikPen U-100 Insulin) lisinopril 5 mg tablet 5 mg PO QAM 01/20/25 5 02/05/25 History warfarin 5 mg tablet 5 mg PO SUTUTHSA 01/20/2502/05/25 History warfarin 2.5 mg tablet 2.5 mg PO SKYLARWEFR 02/06/2502/04/25 History Physical Exam 2 Vital Signs and Narrative: Vital Signs: Last Vital Signs Temp 97.9 F 02/11/25 07:57 Pulse 60 02/11/25 09:37 Resp 18 02/11/25 10:30 BP 104/69 02/11/25 09:38 Pulse Ox 93 02/11/25 07:57 O2 Del Method Nasal Cannula 02/11/25 07:57 O2 Flow Rate 2 02/11/25 07:57 BMI result Body Mass Index 39.6 General: A&O x0. Not oriented to person place time or situation. Very agitated and combative. Cardiac: Unable to obtain cardiac exam Respiratory: Normal breath sounds auscultated throughout upper lobes only - patientrefused remainder of examination GI/ : Unable to obtain examination MSK: Unable to obtain examination Neurological: Unable to obtain examination Psychiatry: Visual and auditory hallucinations. Very paranoid. Combative. Pleasant otherwise. Results Labs 02/11/25 08:06 02/11/25 08:06 Labs: Laboratory Results - last 24 hr 02/11/25 02/11/25 02/11/25 08:06 08:06 08:06 MCV 101.9 H MCH 33.4 H MCHC 32.8 RDW 13.9 Plt Count 151 L D MPV 10.5 Immature Gran % (Auto) 0.6 H Neut % (Auto) 82.8 H Lymph % (Auto) 6.9 L Billings % (Auto) 7.3 Eos % (Auto) 2.2 Baso % (Auto) 0.2 Lymph # (Auto) 0.7 L Billings # (Auto) 0.8 Eos # (Auto) 0.2 Baso # (Auto) 0.0 Abs Immat Gran (auto) 0.06 H Absolute Neuts (auto) 8.5 H Absolute Nucleated RBC 0.000 Nucleated RBC % (auto) 0.0 PT Cancelled 29.1 H INR Cancelled 2.5 H Anion Gap 15 Estim Creat Clear Calc 69.0 Estimated GFR > 60 Random Glucose 137 H Calcium 9.5 Magnesium 1.8 Total Bilirubin 0.7 Direct Bilirubin 0.4 AST 31 ALT 13 Alkaline Phosphatase 127 H Troponin I High Sens 19.5 NT-Pro-B Natriuret Pep 968.6 H Total Protein 7.4 Albumin 4.1 COVID-19 (KRANTHI) Negative COVID-19 Clin Com See Note Imaging Radiologist's Impressions: Impressions Chest X-Ray 02/11/25 06:31 IMPRESSION: Borderline cardiomegaly. No acute cardiopulmonary abnormality. Electronically signed by: Irwin Cai MD 02/11/2025 08:11 AM EDT RP Chest CT 02/11/25 09:14 IMPRESSION: Bronchial wall thickening in the lower lobes, suggestive of bronchitis. No focal airspace opacity is identified. Electronically signed by: Irwin Cai MD 02/11/2025 09:45 AM EDT RP Assessment and Plan (1) Aortic valve replaced: Status: Acute (2) Current use of anticoagulant therapy: Status: Acute (3) Diabetes type 2: Qualifiers: Diabetes mellitus longterm insulin use: without intermediate designer use Diabetes mellitus complication status: with other specified complication Qualified Code(s): E11.69 - Type 2 diabetes mellitus with other specified complication Status: Acute (4) Morbid obesity: Status: Acute (5) Dementia with Lewy bodies: Qualifiers: Dementia severity: severe Dementia behavioral or psychological symptom: without behavioral, psychotic, or mood disturbance or anxiety Qualified Code(s): G31.83 - Neurocognitive disorder with Lewy bodies; F02.C0 - Dementia in other diseases classified elsewhere, severe, without behavioral disturbance, psychotic disturbance, mood disturbance, and anxiety Status: Acute (6) Lewy body dementia with agitation: Qualifiers: Dementia severity: severe Qualified Code(s): G31.83 - Neurocognitive disorder with Lewy bodies; F02.C11 - Dementia in other diseases classified elsewhere, severe, with agitation Status: Acute (7) COPD (chronic obstructive pulmonary disease): Qualifiers: COPD type: unspecified COPD Qualified Code(s): J44.9 - Chronic obstructive pulmonary disease, unspecified Status: Acute (8) Acute hypoxemic respiratory failure: Status: Acute (9) Acute bronchitis: Qualifiers: Bronchitis organism: unspecified organism Qualified Code(s): J20.9 - Acute bronchitis, unspecified Status: Acute (10) Delirium: Status: Acute (11) Agitation: Status: Acute Plan 74-year-old male, with a history of Lewy body dementia c/b agitation and visual hallucinations, COPD, T2 DM, mechanical AVR on warfarin (2-3), PPM placement, brought into hospital by family 02/06/2025 with increased agitation & hallucinations after medication change Risperdal b.i.d. to t.i.d.; bed hold in the ED pending [facility]-psych placement; c/b hypoxia today with increased agitation, admitted with acute on chronic hypoxic respiratory failure 2/2 infective exacerbation of COPD with acute delirium and worsening agitation/combativeness. Acute bronchitis Acute hypoxic respiratory failure COPD Dyspneic and hypoxic on evaluation. Increased mucus congestion. Chest x-ray and CT scan revealing evidence of acute bronchitis White cell count increased from 7-10, with neutrophilic shift Received doxycycline methylprednisolone 60 mg IV in the emergency room PLAN - DuoNebs - oxygen as needed - doxycycline 100 mg b.i.d. p.o. or IV - methylprednisolone 60 mg IV OD - guaifenesin - viral respiratory panel Acute delirium Aggression and combativeness Visual and auditory hallucinations Lewy body dementia with behaviors Recommendations from Psychiatry greatly appreciated PLAN - continue follow up with Psychiatry - Recommending discontinuation of risperidone and switch to quetiapine 25 mg q.h.s. and 25 mg b.i.d. p.r.n. for agitation - Started rivastigmine 1.5 mg b.i.d. - continue sertraline 50 mg OD p.o. - Recommended avoidance of haloperidol and other 1st generation antipsychotics Mechanical Aortic valve replacement On warfarin (2-3) Patient has been refusing warfarin. Was supratherapeutic a few days ago, currently INR is 2.5. Goal INR 2-3 with mechanical AVR PLAN - discontinue warfarin - aim for therapeutic enoxaparin (1 mg/kg) once INR below 2 T2 DM Monitor sugar closely with steroid POC glucose ISS Continue glipizide 5 mg OD p.o. CHRONIC MEDICAL ISSUES HLD: Atorvastatin 20 mg OD p.o. HTN: Continue lisinopril 5 mg p.o., metoprolol 25 mg b.i.d. QUALITY METRICS - VTE: Therapeutic enoxaparin 1 mg/kg after INR below 2 - CODE STATUS: DNR/DNI - DIET: Diabetic diet Quality Stroke Does the patient have a stroke diagnosis?: No VTE Prior VTE?: No VTE Risk Level:: Medical - moderate - high VTE Device Contraindication: Patient Refused VTE Drug Contraindication: N/A - Med Ordered
--- NOTE | 2025-02-11 11:30 | PC.NURSE ---
Unable to obtain IV access on pt due to agitation and combativeness. Pt still attempting to punch staff when applying tourniquet and monitors, continues to rip off oxygen. Dr. Arguelles aware. Family aware and @ bedside.
--- NOTE | 2025-02-11 11:57 | HO.NURTONUR ---
Pt originally arrived due to increased agitation, combativeness, and hallucinations and paranoia (after Risperdal frequency change). unable to care for him at home. While in the ED awaiting bandar psych placement, pt refused all medication, testing, and monitoring and is very combative with staff. Pt noted to have increased congestion and mild hypoxia today, chest xray shows acute bronchitis. Attempted to administer ordered IV medications but IV attempt unsuccessful. Pt received 5mg zyprexa @ 1030 to help with agitation, no noticeable effect. Dr. Arguelles aware, awaiting further psych input. Duonebs as tolerated. 2L oxygen if tolerated. Hx: Lewy body dementia c/b agitation and visual hallucinations, COPD, T2 DM, mechanical AVR on warfarin (2-3), PPM placement. MD aware that patient has refused warfarin and lovenox shots.
--- NOTE | 2025-02-11 13:18 | PC.NURSE ---
Patient very combative,refuses meds,refuses care,unable to obtain blood sugar,Dr. Arguelles made aware
--- NOTE | 2025-02-11 13:20 | PC.NURSE ---
Unable to complete skin assessment,patient gets very agitated trying to hit staff when touched
--- NOTE | 2025-02-11 13:35 | PC.NURSE ---
unable to obtain full set of vitals due to patient agitation
[2025-02-11 16:26] LABS: Glucose, Whole Blood 144 mg/dL (60-115)
--- NOTE | 2025-02-11 18:07 | PC.NURSE ---
Patient very combative with care,unable to feed patient or assist ,3 staff members attempted to assist patient with dinner,unable to start IV ,patient is confused and trying to hit staff
[2025-02-11 20:30] LABS: Glucose, Whole Blood 141 mg/dL (60-115)
[2025-02-12 04:17] VITALS: BP 115/64; PULSE 85; RESP 18; TEMP 36; O2SAT 93
[2025-02-12 07:23] LABS: Glucose, Whole Blood 130 mg/dL (60-115)
[2025-02-12] MEDS: 0.9 % Sodium Chloride Flush 3 ML SYRINGE IVFLUSH ×2 (09:12→16:31)
[2025-02-12 09:14] VITALS: BP 163/70; PULSE 84; RESP 20; TEMP 35.9; O2SAT 92
--- NOTE | 2025-02-12 10:14 | PC.NURSE ---
Patient becomes agitated and combative with care,unable to administer po meds,unable to feed patient,no fluid intake ,Dr. Arguelles made aware
--- NOTE | 2025-02-12 11:12 | MHC.CM.PN ---
IMM DELIVERED TO /HCP ISAEL. WHITE COPY LEFT AT BEDSIDE PER REQUEST. PT LIVES WITH SPOUSE AND USES A [facility] MOST DAYS FOR MOBILITY. 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 + HCP PCP ADRIAN ROSS AT [facility]: PT WILL NEED CARE TEAM/PSYCH ONCE MEDICALLY CLEARED. PT'S IS HOPEFUL FOR A [facility] STAY. TRANSPORT HOME FAMILY VS BLS. CM WILL CONTINUE TO FOLLOW FOR ANY CHANGE TO DC PLAN/NEEDS.
[2025-02-12 11:21] LABS: Glucose, Whole Blood 130 mg/dL (60-115)
[2025-02-12 11:59] LABS: Chlamydia pneumoniae PCR Not Detected (Not Detect.); Coronavirus 229E PCR Not Detected (Not Detect.); Coronavirus HKU1 PCR Not Detected (Not Detect.); Coronavirus NL63 PCR Not Detected (Not Detect.); Coronavirus OC43 PCR Not Detected (Not Detect.); RSV PCR Not Detected (Not Detect.); Rhino/Enterovirus PCR Not Detected (Not Detect.)
[2025-02-12 12:43] LABS: SARS-CoV-2 PCR Not Detected (Not Detect.)
[2025-02-12 12:44] LABS: Influenza A H1 PCR Not Detected (Not Detect.); Influenza A H1-2009 PCR Not Detected (Not Detect.); Influenza A H3 PCR Not Detected (Not Detect.)
[2025-02-12 13:03] VITALS: BP 129/61; PULSE 61; RESP 20; TEMP 36.1; O2SAT 92
--- NOTE | 2025-02-12 13:19 | PC.NURSE ---
patient trying to hit RN when taking vitals signs,verbally abusive,Seroquel was administered,able to feed patient 1/2 of apple juice and 3 teaspoon of potato with gravy at this time
--- NOTE | 2025-02-12 14:13 | HO.PM.IMPN ---
Subjective Subjective Date of Service: 02/12/25 Interval History: Asleep during evaluation. Discussed with the patient's by bedside. He remains significantly agitated with staff members. The patient's informs me that patient no longer recognizes her or her children. We began discussion for placement to long-term care facility/[facility] Review of Systems Review of Systems: Yes Unobtainable due to mental condition and Unobtainable due to mental status Physical Exam Exam: Exam: General: A&O x0. Not oriented to person place time or situation. Very agitated and combative. Cardiac: Unable to obtain cardiac exam Respiratory: Normal breath sounds auscultated throughout upper lobes only - patientrefused remainder of examination GI/ : Unable to obtain examination MSK: Unable to obtain examination Neurological: Unable to obtain examination Psychiatry: Visual and auditory hallucinations. Very paranoid. Combative. Pleasant otherwise. Vital Signs: Vital Signs: Last Vital Signs Temp 97.0 F 02/12/25 13:03 Pulse 61 02/12/25 13:03 Resp 20 02/12/25 13:03 BP 129/61 02/12/25 13:03 Pulse Ox 92 02/12/25 13:03 O2 Del Method Room Air 02/12/25 13:03 O2 Flow Rate 2 02/11/25 07:57 BMI result Body Mass Index 39.6 Objective Data Active Medications Acetaminophen (Acetaminophen 325 Mg Tablet) 975 mg PO DAILY PRN PRN Reason: Pain, Mild 1-3,fever,headache Atorvastatin Calcium (Atorvastatin Calcium 20 Mg Tablet) 20 mg PO DAILY@1930 COUNTS INCLUDE 234 BEDS AT THE [facility] Last Admin: 02/11/25 22:29 Dose: Not Given Documented By: CHRISSY Non-Admin Reason: agitation Calcium Carbonate (Calcium Carbonate 750 Mg Tab.Chew) 750 mg PO Q4H PRN PRN Reason: Heartburn Dextrose (Dextrose 50 % 25 Gm/50 Ml Syringe) 25 gm IVPUSH Q15M PRN; Protocol PRN Reason: per Hypoglycemia Standing Ord. Enoxaparin Sodium (Enoxaparin Sodium 120 Mg/0.8 Ml Syringe) 120 mg SUBCUT Q12H COUNTS INCLUDE 234 BEDS AT THE [facility] Last Admin: 02/12/25 10:31 Dose: 120 mg Documented By: CRISTIANE Fluticasone/Vilanterol (Fluticasone/Vilanterol 100/25 Blst.W.Dev) 1 puff INHALE RDAILY COUNTS INCLUDE 234 BEDS AT THE [facility] Last Admin: 02/12/25 07:59 Dose: Not Given Documented By: NURIA Non-Admin Reason: Patient Refused Glipizide (Glipizide Xl 5 Mg Tab.Er.24) 5 mg PO DAILY@0815 COUNTS INCLUDE 234 BEDS AT THE [facility] Last Admin: 02/12/25 09:35 Dose: Not Given Documented By: CRISTIANE Non-Admin Reason: Patient Refused Glucose (Glucose Gel 15 Gm Gel..Gram.) 15 gm PO Q15M PRN; Protocol PRN Reason: per Hypoglycemia Standing Ord. Doxycycline Hyclate 100 mg/ (Sodium Chloride) 250 mls @ 166.67 mls/hr IV Q12H COUNTS INCLUDE 234 BEDS AT THE [facility] Last Infusion: 02/12/25 05:42 Dose: Infused Documented By: CHRISSY Insulin Glargine (Insulin Glargine,Hum.Rec.Anlog 100 Unit/Ml 10 Ml Vial) 10 unit SUBCUT DAILY PRN PRN Reason: HYPERGLYCEMIA Insulin Human Lispro (Insulin Lispro 100 Unit/Ml 3 Ml Vial) 0 unit SUBCUT QIDACHS COUNTS INCLUDE 234 BEDS AT THE [facility]; Protocol Last Admin: 02/12/25 11:30 Dose: Not Given Documented By: CRISTIANE Non-Admin Reason: No Insulin Coverage Lisinopril (Lisinopril 5 Mg Tablet) 5 mg PO DAILY COUNTS INCLUDE 234 BEDS AT THE [facility]; Protocol Last Admin: 02/12/25 09:35 Dose: Not Given Documented By: CRISTIANE Non-Admin Reason: Patient Refused Magnesium Hydroxide (Milk Of Magnesia 30 Ml Oral.Susp) 30 ml PO DAILY PRN PRN Reason: Constipation Melatonin (Melatonin 3 Mg Tablet) 6 mg PO BEDTIME PRN PRN Reason: Insomnia Methylprednisolone Sodium Succinate (Methylprednisolone Sod Succ 40 Mg/Ml Vial) 40 mg IVPUSH Q12H COUNTS INCLUDE 234 BEDS AT THE [facility] Last Admin: 02/12/25 04:13 Dose: Not Given Documented By: CHRISSY Non-Admin Reason: per NEWSWRITER Metoprolol Tartrate (Metoprolol Tartrate 25 Mg Tablet) 25 mg PO BID COUNTS INCLUDE 234 BEDS AT THE [facility]; Protocol Last Admin: 02/12/25 09:35 Dose: Not Given Documented By: CRISTIANE Non-Admin Reason: Patient Refused Montelukast Sodium (Montelukast Sodium 10 Mg Tablet) 10 mg PO BEDTIME COUNTS INCLUDE 234 BEDS AT THE [facility] Last Admin: 02/11/25 22:29 Dose: Not Given Documented By: CHRISSY Non-Admin Reason: agitation Quetiapine Fumarate (Quetiapine Fumarate 25 Mg Tablet) 25 mg PO BID PRN PRN Reason: agitation Last Admin: 02/12/25 13:15 Dose: 25 mg Documented By: CRISTIANE Rivastigmine Tartrate (Rivastigmine Tartrate 1.5 Mg Capsule) 1.5 mg PO BID COUNTS INCLUDE 234 BEDS AT THE [facility] Last Admin: 02/12/25 09:36 Dose: Not Given Documented By: CRISTIANE Non-Admin Reason: Patient Refused Sertraline HCl (Sertraline Hcl 50 Mg Tablet) 50 mg PO DAILY COUNTS INCLUDE 234 BEDS AT THE [facility] Last Admin: 02/12/25 09:36 Dose: Not Given Documented By: CRISTIANE Non-Admin Reason: Patient Refused Sodium Chloride (0.9 % Sodium Chloride Flush 3 Ml Syringe) 3 ml IVFLUSH QSHIFT COUNTS INCLUDE 234 BEDS AT THE [facility] Last Admin: 02/12/25 09:12 Dose: 3 ml Documented By: CRISTIANE Labs 02/11/25 08:06 02/11/25 08:06 Labs: Laboratory Results - last 24 hr 02/11/25 02/11/25 02/11/25 16:17 18:30 20:26 POC Glucose 144 H 141 H Respiratory Panel Estrada See Note Adenovirus (Rapid PCR) Not Detected B.pert (TEM-PCR) Not Detected B.parapertussis DNA PCR Not Detected C. pneumoniae DNA (PCR) Not Detected Coronavirus OC43 (PCR) Not Detected Coronavirus HKU1 (PCR) Not Detected Coronavirus 229E (PCR) Not Detected Coronavirus NL63 (PCR) Not Detected Human Metapneumovir PCR Not Detected Influenza A (RT-PCR) Not Detected Influenza A (H1) PCR Not Detected Influ A (H1/09) PCR Not Detected Influenza A (H3) PCR Not Detected Influenza B (RT-PCR) Not Detected M. pneumoniae (PCR) Not Detected Parainfluenza 1 (PCR) Not Detected Parainfluenza 2 (PCR) Not Detected Parainfluenza 3 (PCR) Not Detected Parainfluenza 4 (PCR) Not Detected RSV (PCR) Not Detected Entero/Rhino (PCR) Not Detected SARS-CoV-2 RNA (RT-PCR) Not Detected 02/12/25 02/12/25 07:09 11:14 POC Glucose 130 H 130 H Respiratory Panel Estrada Adenovirus (Rapid PCR) B.pert (TEM-PCR) B.parapertussis DNA PCR C. pneumoniae DNA (PCR) Coronavirus OC43 (PCR) Coronavirus HKU1 (PCR) Coronavirus 229E (PCR) Coronavirus NL63 (PCR) Human Metapneumovir PCR Influenza A (RT-PCR) Influenza A (H1) PCR Influ A (H1/09) PCR Influenza A (H3) PCR Influenza B (RT-PCR) M. pneumoniae (PCR) Parainfluenza 1 (PCR) Parainfluenza 2 (PCR) Parainfluenza 3 (PCR) Parainfluenza 4 (PCR) RSV (PCR) Entero/Rhino (PCR) SARS-CoV-2 RNA (RT-PCR) Assessment and Plan (1) Diabetes type 2: Status: Acute (2) Delirium: Status: Acute (3) Lewy body dementia with agitation: Status: Acute (4) Aortic valve replaced: Status: Acute (5) Morbid obesity: Status: Acute (6) Eosinophilic asthma: Status: Acute (7) COPD (chronic obstructive pulmonary disease): Status: Acute (8) Acute bronchitis: Status: Acute Plan 74-year-old male, with a history of Lewy body dementia c/b agitation and visual hallucinations, COPD, T2 DM, mechanical AVR on warfarin (2-3), PPM placement, brought into hospital by family 02/06/2025 with increased agitation & hallucinations after medication change Risperdal b.i.d. to t.i.d.; bed hold in the ED pending [facility] placement; c/b hypoxia today with increased agitation, admitted with acute on chronic hypoxic respiratory failure 2/2 infective exacerbation of COPD with acute delirium and worsening agitation/combativeness. Acute bronchitis Acute hypoxic respiratory failure COPD Dyspneic and hypoxic on evaluation. Increased mucus congestion. Chest x-ray and CT scan revealing evidence of acute bronchitis White cell count increased from 7-10, with neutrophilic shift Received doxycycline methylprednisolone 60 mg IV in the emergency room PLAN - DuoNebs - oxygen as needed - doxycycline 100 mg b.i.d. p.o. or IV - methylprednisolone 60 mg IV OD - guaifenesin - viral respiratory panel Acute delirium Aggression and combativeness Visual and auditory hallucinations Lewy body dementia with behaviors Recommendations from Psychiatry greatly appreciated PLAN - continue follow up with Psychiatry - Recommending discontinuation of risperidone and switch to quetiapine 25 mg q.h.s. and 25 mg b.i.d. p.r.n. for agitation - Started rivastigmine 1.5 mg b.i.d. - continue sertraline 50 mg OD p.o. - Recommended avoidance of haloperidol and other 1st generation antipsychotics Mechanical Aortic valve replacement On warfarin (2-3) Patient has been refusing warfarin. Was supratherapeutic a few days ago, currently INR is 2.5. Goal INR 2-3 with mechanical AVR PLAN - discontinue warfarin - aim for therapeutic enoxaparin (1 mg/kg) once INR below 2 T2 DM Monitor sugar closely with steroid POC glucose ISS Continue glipizide 5 mg OD p.o. CHRONIC MEDICAL ISSUES HLD: Atorvastatin 20 mg OD p.o. HTN: Continue lisinopril 5 mg p.o., metoprolol 25 mg b.i.d. QUALITY METRICS - VTE: Therapeutic enoxaparin 1 mg/kg after INR below 2 - CODE STATUS: DNR/DNI - DIET: Diabetic diet Total time managing care of this patient today: 35 minutes. Quality Stroke Does the patient have a stroke diagnosis?: No VTE Prior VTE?: No VTE Risk Level:: Medical - moderate - high VTE Device Contraindication: Patient Refused VTE Drug Contraindication: N/A - Med Ordered
[2025-02-12 15:02] LABS: MANUAL DIFF FLAG NO
[2025-02-12 15:05] LABS: Hematocrit 33.8 % (42.0-52.0); Hemoglobin 11.3 g/dl (14.0-18.0); Imm Gran Abs Auto 0.03 X10*3/uL (0.00-0.03); Imm Gran Pct Auto 0.4 % (0.0-0.4); Lymphocytes Absolute Auto 1.0 X10*3/uL (1.2-4.9); Mean Corpuscular HGB Conc 33.4 g/dl (31.0-36.0); Mean Corpuscular Hemoglobin 33.6 pg (27.0-33.0); Mean Corpuscular Volume 100.6 fL (80.0-98.0); NRBC Abs Auto 0.000 X10*3/uL (0.0-0.012); NRBC Pct Auto 0.0 /100WBC (0.0-0.2); Platelet Count 142 X10*3/uL (160-400); Red Blood Count 3.36 X10*6/uL (4.60-5.80); White Blood Count 7.3 X10*3/uL (4.8-10.8)
[2025-02-12 15:19] LABS: INTERNATIONAL NORM RATIO 3.7 (0.9-1.1); Prothrombin Time 42.4 SEC (10.9-12.4)
[2025-02-12 15:34] LABS: Anion Gap 14 (12-20); Blood Urea Nitrogen 50 mg/dL (9-16); Calcium 9.4 mg/dL (8.4-10.2); Carbon Dioxide 25 mmol/L (22-29); Chloride 113 mmol/L (96-108); Creatinine Clr Calc Pharmacy 51.0; Estimated Glomerular Filt Rate 46; Iron 46 mcg/dL (45-160); Percent Iron Saturation 26 % (15-50); Potassium 4.5 mmol/L (3.3-5.1); Sodium 147 mmol/L (135-145); Total Iron Binding Capacity 180 mcg/dL (228-428); Unsaturated Iron Binding 134 ug/dL
[2025-02-12 15:35] LABS: NT Pro B Type Natriuretic Pept 1428.9 pg/mL (<300)
--- NOTE | 2025-02-12 15:40 | PC.NURSE ---
Lab results are in ,Dr. Arguelles made aware
[2025-02-12 15:49] LABS: Thyroid Stimulating Hormone 0.87 uIU/mL (0.32-4.0)
[2025-02-12 16:14] LABS: Glucose, Whole Blood 144 mg/dL (60-115)
[2025-02-12 21:26] LABS: Folate 5.3 ng/mL (> or = 4.0); Vitamin B12 610 pg/mL (200-900)
[2025-02-12 21:52] VITALS: BP 131/57; PULSE 60; RESP 16; TEMP 36.2; O2SAT 90
[2025-02-12 22:00] LABS: Glucose, Whole Blood 179 mg/dL (60-115)
[2025-02-13 06:00] VITALS: BP 128/72; PULSE 65; RESP 18; TEMP 36.6; O2SAT 95
[2025-02-13 07:04] LABS: INTERNATIONAL NORM RATIO 3.9 (0.9-1.1); Prothrombin Time 44.8 SEC (10.9-12.4)
[2025-02-13 07:05] LABS: Hematocrit 34.4 % (42.0-52.0); Hemoglobin 11.4 g/dl (14.0-18.0); Imm Gran Abs Auto 0.05 X10*3/uL (0.00-0.03); Imm Gran Pct Auto 0.8 % (0.0-0.4); Lymphocytes Absolute Auto 0.4 X10*3/uL (1.2-4.9); MANUAL DIFF FLAG SCAN; Mean Corpuscular HGB Conc 33.1 g/dl (31.0-36.0); Mean Corpuscular Hemoglobin 33.3 pg (27.0-33.0); Mean Corpuscular Volume 100.6 fL (80.0-98.0); NRBC Abs Auto 0.000 X10*3/uL (0.0-0.012); NRBC Pct Auto 0.0 /100WBC (0.0-0.2); Platelet Count 150 X10*3/uL (160-400); Red Blood Count 3.42 X10*6/uL (4.60-5.80); SCAN SMEAR FLAG 1; White Blood Count 6.3 X10*3/uL (4.8-10.8)
[2025-02-13 07:14] LABS: Anion Gap 15 (12-20); Blood Urea Nitrogen 53 mg/dL (9-16); Calcium 9.4 mg/dL (8.4-10.2); Carbon Dioxide 24 mmol/L (22-29); Chloride 111 mmol/L (96-108); Creatinine Clr Calc Pharmacy 67.8; Estimated Glomerular Filt Rate > 60; Potassium 4.5 mmol/L (3.3-5.1); Sodium 145 mmol/L (135-145)
[2025-02-13 08:12] VITALS: BP 135/70; PULSE 60; RESP 18; TEMP 36.9; O2SAT 93
[2025-02-13 08:13] LABS: Glucose, Whole Blood 147 mg/dL (60-115)
[2025-02-13 08:18] VITALS: PULSE 70; RESP 12; O2SAT 96
[2025-02-13] MEDS: Fluticasone/Vilanterol 100/25 BLST.W.DEV 1 PUFF INHALE (08:18)
[2025-02-13] MEDS: 0.9 % Sodium Chloride Flush 3 ML SYRINGE IVFLUSH ×3 (09:28→20:13)
[2025-02-13 11:13] LABS: Glucose, Whole Blood 175 mg/dL (60-115)
--- NOTE | 2025-02-13 12:57 | P.PNIM_ITS ---
Subjective Subjective Date of Service: 02/13/25 Interval History: Remains confused and altered. Having visual hallucinations (requests me to say hi to his brother in the room- who is not there) Patient was pleasant and communicative. He allowed me to perform brief physical examination (cardiac and some pulmonary), before informing me enough of that , and to f off . I obliged - thanked him - asked if he needed anything else - dismissed myself. Review of Systems Review of Systems: Yes Unobtainable due to mental condition and Unobtainable due to mental status Physical Exam 2 Exam: Exam: General: A&O x0. Not oriented to person place time or situation. Agitated and irritable. Cardiac: S1, 2 present, without S3/4 - well perfused - RUSB murmur auscultated grade III Respiratory: Normal breath sounds auscultated throughout upper lobes only - patient refused remainder of examination GI/ : Unable to obtain examination MSK: Unable to obtain examination Neurological: Unable to obtain examination Psychiatry: Visual and auditory hallucinations. Very paranoid. Combative. Pleasant otherwise. Vital Signs: Vital Signs: Last Vital Signs Temp 98.5 F 02/13/25 08:12 Pulse 70 02/13/25 08:18 Resp 12 02/13/25 08:18 BP 135/70 02/13/25 08:12 Pulse Ox 93 02/13/25 08:12 O2 Del Method Room Air 02/13/25 08:12 O2 Flow Rate 2 02/11/25 07:57 BMI result Body Mass Index 39.6 Objective Data Active Medications Acetaminophen (Acetaminophen 325 Mg Tablet) 975 mg PO DAILY PRN PRN Reason: Pain, Mild 1-3,fever,headache Atorvastatin Calcium (Atorvastatin Calcium 20 Mg Tablet) 20 mg PO DAILY@1930 [facility] Last Admin: 02/12/25 20:05 Dose: 20 mg Documented By: JOVAN Calcium Carbonate (Calcium Carbonate 750 Mg Tab.Chew) 750 mg PO Q4H PRN PRN Reason: Heartburn Dextrose (Dextrose 50 % 25 Gm/50 Ml Syringe) 25 gm IVPUSH Q15M PRN; Protocol PRN Reason: per Hypoglycemia Standing Ord. Enoxaparin Sodium (Enoxaparin Sodium 120 Mg/0.8 Ml Syringe) 120 mg SUBCUT Q12H [facility] On Hold: 02/12/25 16:16 Last Admin: 02/12/25 10:31 Dose: 120 mg Documented By: CRISTIANE Fluticasone/Vilanterol (Fluticasone/Vilanterol 100/25 Blst.W.Dev) 1 puff INHALE RDAILY [facility] Last Admin: 02/13/25 08:18 Dose: 1 puff Documented By: THOMAS Glipizide (Glipizide Xl 5 Mg Tab.Er.24) 5 mg PO DAILY@0815 [facility] Last Admin: 02/13/25 09:28 Dose: 5 mg Documented By: PAUL Glucose (Glucose Gel 15 Gm Gel..Gram.) 15 gm PO Q15M PRN; Protocol PRN Reason: per Hypoglycemia Standing Ord. Doxycycline Hyclate 100 mg/ (Sodium Chloride) 250 mls @ 166.67 mls/hr IV Q12H [facility] Last Infusion: 02/13/25 05:49 Dose: Infused Documented By: JOVAN Insulin Glargine (Insulin Glargine,Hum.Rec.Anlog 100 Unit/Ml 10 Ml Vial) 10 unit SUBCUT DAILY PRN PRN Reason: HYPERGLYCEMIA Insulin Human Lispro (Insulin Lispro 100 Unit/Ml 3 Ml Vial) 0 unit SUBCUT QIDACHS [facility]; Protocol Last Admin: 02/13/25 12:09 Dose: Not Given Documented By: PAUL Non-Admin Reason: only ate a few bites of lunch Lisinopril (Lisinopril 5 Mg Tablet) 5 mg PO DAILY [facility]; Protocol Last Admin: 02/13/25 09:28 Dose: 5 mg Documented By: PAUL Magnesium Hydroxide (Milk Of Magnesia 30 Ml Oral.Susp) 30 ml PO DAILY PRN PRN Reason: Constipation Melatonin (Melatonin 3 Mg Tablet) 6 mg PO BEDTIME PRN PRN Reason: Insomnia Last Admin: 02/12/25 20:05 Dose: 6 mg Documented By: JOVAN Methylprednisolone Sodium Succinate (Methylprednisolone Sod Succ 40 Mg/Ml Vial) 40 mg IVPUSH Q12H [facility] Last Admin: 02/13/25 04:19 Dose: 40 mg Documented By: JOVAN Metoprolol Tartrate (Metoprolol Tartrate 25 Mg Tablet) 25 mg PO BID [facility]; Protocol Last Admin: 02/13/25 09:28 Dose: 25 mg Documented By: PAUL Montelukast Sodium (Montelukast Sodium 10 Mg Tablet) 10 mg PO BEDTIME [facility] Last Admin: 02/12/25 20:05 Dose: 10 mg Documented By: JOVAN Quetiapine Fumarate (Quetiapine Fumarate 25 Mg Tablet) 25 mg PO BID PRN PRN Reason: agitation Last Admin: 02/12/25 13:15 Dose: 25 mg Documented By: CRISTIANE Rivastigmine Tartrate (Rivastigmine Tartrate 1.5 Mg Capsule) 1.5 mg PO BID [facility] Last Admin: 02/13/25 09:28 Dose: 1.5 mg Documented By: PAUL Sertraline HCl (Sertraline Hcl 50 Mg Tablet) 50 mg PO DAILY [facility] Last Admin: 02/13/25 09:28 Dose: 50 mg Documented By: PAUL Sodium Chloride (0.9 % Sodium Chloride Flush 3 Ml Syringe) 3 ml IVFLUSH QSHIFT [facility] Last Admin: 02/13/25 09: Dose: 3 ml Documented By: PAUL Labs 02/13/25 06:30 02/13/25 06:30 Labs: Laboratory Results - last 24 hr 02/12/25 02/12/25 02/12/25 14:57 14:58 16:04 MCV 100.6 H MCH 33.6 H MCHC 33.4 RDW 14.2 Plt Count 142 L MPV 10.8 Immature Gran % (Auto) 0.4 Neut % (Auto) 71.9 Lymph % (Auto) 13.3 L [place] % (Auto) 10.0 Eos % (Auto) 4.1 H Baso % (Auto) 0.3 Lymph # (Auto) 1.0 L [place] # (Auto) 0.7 Eos # (Auto) 0.3 Baso # (Auto) 0.0 Abs Immat Gran (auto) 0.03 Absolute Neuts (auto) 5.3 Absolute Nucleated RBC 0.000 Nucleated RBC % (auto) 0.0 Smear Tech's Comments PT 42.4 H D INR 3.7 H Anion Gap 14 Estim Creat Clear Calc 51.0 Estimated GFR 46 POC Glucose 144 H Random Glucose 143 H Calcium 9.4 Iron 46 TIBC 180 L % Saturation 26 Unsat Iron Binding 134 NT-Pro-B Natriuret Pep 1428.9 H Vitamin B12 Folate TSH 0.87 02/12/25 02/12/25 02/13/25 19:59 21:09 06:30 MCV 100.6 H MCH 33.3 H MCHC 33.1 RDW 14.0 Plt Count 150 L MPV 11.0 Immature Gran % (Auto) 0.8 H Neut % (Auto) 90.8 H Lymph % (Auto) 6.3 L [place] % (Auto) 2.1 Eos % (Auto) 0.0 Baso % (Auto) 0.0 Lymph # (Auto) 0.4 L [place] # (Auto) 0.1 Eos # (Auto) 0.0 Baso # (Auto) 0.0 Abs Immat Gran (auto) 0.05 H Absolute Neuts (auto) 5.8 Absolute Nucleated RBC 0.000 Nucleated RBC % (auto) 0.0 Smear Tech's Comments VERIFIED PT 44.8 H INR 3.9 H Anion Gap 15 Estim Creat Clear Calc 67.8 Estimated GFR > 60 POC Glucose 179 H Random Glucose 153 H Calcium 9.4 Iron TIBC % Saturation Unsat Iron Binding NT-Pro-B Natriuret Pep Vitamin B12 610 Folate 5.3 TSH 02/13/25 02/13/25 08:08 11:07 MCV MCH MCHC RDW Plt Count MPV Immature Gran % (Auto) Neut % (Auto) Lymph % (Auto) [place] % (Auto) Eos % (Auto) Baso % (Auto) Lymph # (Auto) [place] # (Auto) Eos # (Auto) Baso # (Auto) Abs Immat Gran (auto) Absolute Neuts (auto) Absolute Nucleated RBC Nucleated RBC % (auto) Smear Tech's Comments PT INR Anion Gap Estim Creat Clear Calc Estimated GFR POC Glucose 147 H 175 H Random Glucose Calcium Iron TIBC % Saturation Unsat Iron Binding NT-Pro-B Natriuret Pep Vitamin B12 Folate TSH Assessment and Plan (1) Agitation: Status: Acute (2) Diabetes type 2: Status: Acute (3) Morbid obesity: Status: Acute (4) Delirium: Status: Acute (5) Dementia: Status: Acute (6) Dementia with Lewy bodies: Status: Acute (7) Lewy body dementia with agitation: Status: Acute (8) Asthma-COPD overlap syndrome: Status: Acute (9) COPD (chronic obstructive pulmonary disease): Status: Acute (10) Acute hypoxemic respiratory failure: Status: Acute (11) Acute bronchitis: Status: Acute (12) Combative behavior: Status: Acute Plan 74-year-old male, with a history of Lewy body dementia c/b agitation and visual hallucinations, COPD, T2 DM, mechanical AVR on warfarin (2-3), PPM placement, brought into hospital by family 02/06/2025 with increased agitation & hallucinations after medication change Risperdal b.i.d. to t.i.d.; bed hold in the ED pending [facility] placement; c/b hypoxia today with increased agitation, admitted with acute on chronic hypoxic respiratory failure 2/2 infective exacerbation of COPD with acute delirium and worsening agitation/combativeness. Acute bronchitis Acute hypoxic respiratory failure COPD Dyspneic and hypoxic on evaluation. Increased mucus congestion. Chest x-ray and CT scan revealing evidence of acute bronchitis White cell count increased from 7-10, with neutrophilic shift Received doxycycline methylprednisolone 60 mg IV in the emergency room Currently off oxygen - improving - nonreliably takes PO medications - will continue IV for now PLAN - DuoNebs - oxygen as needed - doxycycline 100 mg b.i.d. p.o. or IV - methylprednisolone 60 mg IV OD - guaifenesin Acute delirium Aggression and combativeness Visual and auditory hallucinations Lewy body dementia with behaviors Recommendations from Psychiatry greatly appreciated PLAN - continue follow up with Psychiatry - Recommending discontinuation of risperidone and switch to quetiapine 25 mg q.h.s. and 25 mg b.i.d. p.r.n. for agitation - Started rivastigmine 1.5 mg b.i.d. - continue sertraline 50 mg OD p.o. - Recommended avoidance of haloperidol and other 1st generation antipsychotics Mechanical Aortic valve replacement On warfarin (2-3) Patient has been refusing warfarin. Was supratherapeutic a few days ago, currently INR is 2.5 - which has been worsening; currently 3.9; NOT taking warfarin while here. Goal INR 2-3 with mechanical AVR PLAN - NO warfarin - aim for therapeutic enoxaparin (1 mg/kg) once INR below 2 - Check INR daily T2 DM Monitor sugar closely with steroid POC glucose ISS Continue glipizide 5 mg OD p.o. CHRONIC MEDICAL ISSUES HLD: Atorvastatin 20 mg OD p.o. HTN: Continue lisinopril 5 mg p.o., metoprolol 25 mg b.i.d. QUALITY METRICS - VTE: Therapeutic enoxaparin 1 mg/kg after INR below 2 - CODE STATUS: DNR/DNI - DIET: Diabetic diet Total time managing care of this patient today: 35 minutes. Quality Stroke Does the patient have a stroke diagnosis?: No VTE Prior VTE?: No VTE Risk Level:: Medical - moderate - high VTE Device Contraindication: Patient Refused VTE Drug Contraindication: N/A - Med Ordered
[2025-02-13 14:00] VITALS: BP 93/52; PULSE 62; RESP 16; TEMP 36.8; O2SAT 95
--- NOTE | 2025-02-13 15:54 | MHC.CM.PN ---
Per MD rounds patient Should be medically cleared tomorrow. He will need to be evaluated for [facility] once medically clear. [facility] bed search after psych eval. He will transport via if bed @ [facility] [place] Via BLS if bed offer is from outside psych unit.
[2025-02-13 16:17] LABS: Glucose, Whole Blood 80 mg/dL (60-115)
[2025-02-13 19:48] LABS: Glucose, Whole Blood 142 mg/dL (60-115)
[2025-02-13 20:17] VITALS: TEMP 36.2
[2025-02-13 20:54] VITALS: BP 98/52
[2025-02-14 03:29] VITALS: BP 117/65; PULSE 61; RESP 18; TEMP 36.4
[2025-02-14 06:48] LABS: MANUAL DIFF FLAG NO
[2025-02-14 06:53] LABS: Hematocrit 33.6 % (42.0-52.0); Hemoglobin 11.0 g/dl (14.0-18.0); Imm Gran Abs Auto 0.08 X10*3/uL (0.00-0.03); Imm Gran Pct Auto 0.8 % (0.0-0.4); Lymphocytes Absolute Auto 0.6 X10*3/uL (1.2-4.9); Mean Corpuscular HGB Conc 32.7 g/dl (31.0-36.0); Mean Corpuscular Hemoglobin 32.9 pg (27.0-33.0); Mean Corpuscular Volume 100.6 fL (80.0-98.0); NRBC Abs Auto 0.000 X10*3/uL (0.0-0.012); NRBC Pct Auto 0.0 /100WBC (0.0-0.2); Platelet Count 155 X10*3/uL (160-400); Red Blood Count 3.34 X10*6/uL (4.60-5.80); White Blood Count 10.1 X10*3/uL (4.8-10.8)
[2025-02-14 06:55] LABS: INTERNATIONAL NORM RATIO 3.4 (0.9-1.1); Prothrombin Time 39.5 SEC (10.9-12.4)
[2025-02-14 07:09] LABS: Anion Gap 11 (12-20); Blood Urea Nitrogen 55 mg/dL (9-16); Calcium 9.1 mg/dL (8.4-10.2); Carbon Dioxide 24 mmol/L (22-29); Chloride 112 mmol/L (96-108); Creatinine Clr Calc Pharmacy 72.3; Estimated Glomerular Filt Rate > 60; Potassium 4.2 mmol/L (3.3-5.1); Sodium 143 mmol/L (135-145)
[2025-02-14 07:32] LABS: Glucose, Whole Blood 155 mg/dL (60-115)
[2025-02-14 08:45] VITALS: BP 120/60; PULSE 60
[2025-02-14] MEDS: 0.9 % Sodium Chloride Flush 3 ML SYRINGE IVFLUSH ×3 (08:48→20:59)
[2025-02-14 11:48] LABS: Glucose, Whole Blood 199 mg/dL (60-115)
--- NOTE | 2025-02-14 12:23 | MHC.CM.PN ---
Patient has behaviors that will not be acceptable for placement in a SNF (See documentation). A request has been made to MD to order a Psych eval. The order has been placed by . BRIDGETTE VALADEZ pending psych eval.
--- NOTE | 2025-02-14 12:36 | HO.PM.IMPN ---
Subjective Subjective Date of Service: 02/14/25 Interval History: No new issues or complaints today. Patient clinically stable, with improvement respiratory status back to baseline. , patient has no new complaints. Review of Systems Review of Systems: Yes Unobtainable due to mental condition and Unobtainable due to mental status Physical Exam Exam: Exam: General: A&O x0. Not oriented to person place time or situation. Agitated and irritable. Cardiac: S1, 2 present, without S3/4 - well perfused - RUSB murmur auscultated grade III Respiratory: Normal breath sounds auscultated throughout upper lobes only - patient refused remainder of examination GI/ : Unable to obtain examination MSK: Unable to obtain examination Neurological: Unable to obtain examination Psychiatry: Visual and auditory hallucinations. Very paranoid. Combative. Pleasant otherwise. Vital Signs: Vital Signs: Last Vital Signs Temp 97.6 F 02/14/25 03:29 Pulse 60 02/14/25 08:45 Resp 18 02/14/25 03:29 BP 120/60 02/14/25 08:45 Pulse Ox 95 02/13/25 14:00 O2 Del Method Room Air 02/13/25 14:00 O2 Flow Rate 2 02/11/25 07:57 BMI result Body Mass Index 39.6 Objective Data Active Medications Acetaminophen (Acetaminophen 325 Mg Tablet) 975 mg PO DAILY PRN PRN Reason: Pain, Mild 1-3,fever,headache Atorvastatin Calcium (Atorvastatin Calcium 20 Mg Tablet) 20 mg PO DAILY@1930 [facility] Last Admin: 02/13/25 20:06 Dose: 20 mg Documented By: CHRISSYRISJoaquim Calcium Carbonate (Calcium Carbonate 750 Mg Tab.Chew) 750 mg PO Q4H PRN PRN Reason: Heartburn Dextrose (Dextrose 50 % 25 Gm/50 Ml Syringe) 25 gm IVPUSH Q15M PRN; Protocol PRN Reason: per Hypoglycemia Standing Ord. Doxycycline Monohydrate (Doxycycline Monohydrate 100 Mg Capsule) 100 mg PO Q12H [facility] Enoxaparin Sodium (Enoxaparin Sodium 120 Mg/0.8 Ml Syringe) 120 mg SUBCUT Q12H [facility] On Hold: 02/12/25 16:16 Last Admin: 02/12/25 10:31 Dose: 120 mg Documented By: CRISTIANE Fluticasone/Vilanterol (Fluticasone/Vilanterol 100/25 Blst.W.Dev) 1 puff INHALE RDAILY [facility] Last Admin: 02/14/25 08:16 Dose: Not Given Documented By: PARISH Non-Admin Reason: Agitation Glipizide (Glipizide Xl 5 Mg Tab.Er.24) 5 mg PO DAILY@0815 [facility] Last Admin: 02/14/25 08:48 Dose: 5 mg Documented By: MARIANA Glucose (Glucose Gel 15 Gm Gel..Gram.) 15 gm PO Q15M PRN; Protocol PRN Reason: per Hypoglycemia Standing Ord. Insulin Glargine (Insulin Glargine,Hum.Rec.Anlog 100 Unit/Ml 10 Ml Vial) 10 unit SUBCUT DAILY PRN PRN Reason: HYPERGLYCEMIA Insulin Human Lispro (Insulin Lispro 100 Unit/Ml 3 Ml Vial) 0 unit SUBCUT QIDACHS [facility]; Protocol Last Admin: 02/14/25 08:44 Dose: Not Given Documented By: MARIANA Non-Admin Reason: No Insulin Coverage Lisinopril (Lisinopril 5 Mg Tablet) 5 mg PO DAILY [facility]; Protocol Last Admin: 02/14/25 08:45 Dose: 5 mg Documented By: MARIANA Magnesium Hydroxide (Milk Of Magnesia 30 Ml Oral.Susp) 30 ml PO DAILY PRN PRN Reason: Constipation Melatonin (Melatonin 3 Mg Tablet) 6 mg PO BEDTIME PRN PRN Reason: Insomnia Last Admin: 02/12/25 20:05 Dose: 6 mg Documented By: JOVAN Methylprednisolone Sodium Succinate (Methylprednisolone Sod Succ 40 Mg/Ml Vial) 40 mg IVPUSH Q12H [facility] Last Admin: 02/14/25 04:46 Dose: 40 mg Documented By: ULISES Metoprolol Tartrate (Metoprolol Tartrate 25 Mg Tablet) 25 mg PO BID [facility]; Protocol Last Admin: 02/14/25 08:45 Dose: 25 mg Documented By: MARIANA Montelukast Sodium (Montelukast Sodium 10 Mg Tablet) 10 mg PO BEDTIME [facility] Last Admin: 02/13/25 20:07 Dose: 10 mg Documented By: ULISES Quetiapine Fumarate (Quetiapine Fumarate 25 Mg Tablet) 25 mg PO BID PRN PRN Reason: agitation Last Admin: 02/12/25 13:15 Dose: 25 mg Documented By: CRISTIANE Rivastigmine Tartrate (Rivastigmine Tartrate 1.5 Mg Capsule) 1.5 mg PO BID [facility] Last Admin: 02/14/25 08:45 Dose: 1.5 mg Documented By: MARIANA Sertraline HCl (Sertraline Hcl 50 Mg Tablet) 50 mg PO DAILY [facility] Last Admin: 02/14/25 08:45 Dose: 50 mg Documented By: MARIANA Sodium Chloride (0.9 % Sodium Chloride Flush 3 Ml Syringe) 3 ml IVFLUSH QSHIFT [facility] Last Admin: 02/14/25 08:48 Dose: 3 ml Documented By: MARIANA Labs 02/14/25 06:04 02/14/25 06:04 Labs: Laboratory Results - last 24 hr 02/13/25 02/13/25 02/14/25 16:12 19:39 06:04 MCV 100.6 H MCH 32.9 MCHC 32.7 RDW 13.8 Plt Count 155 L MPV 10.7 Immature Gran % (Auto) 0.8 H Neut % (Auto) 89.1 H Lymph % (Auto) 6.0 L [place] % (Auto) 4.0 Eos % (Auto) 0.0 Baso % (Auto) 0.1 Lymph # (Auto) 0.6 L [place] # (Auto) 0.4 Eos # (Auto) 0.0 Baso # (Auto) 0.0 Abs Immat Gran (auto) 0.08 H Absolute Neuts (auto) 9.0 H Absolute Nucleated RBC 0.000 Nucleated RBC % (auto) 0.0 PT 39.5 H INR 3.4 H Anion Gap 11 L Estim Creat Clear Calc 72.3 Estimated GFR > 60 POC Glucose 80 142 H Random Glucose 152 H Calcium 9.1 02/14/25 02/14/25 07:17 11:26 MCV MCH MCHC RDW Plt Count MPV Immature Gran % (Auto) Neut % (Auto) Lymph % (Auto) [place] % (Auto) Eos % (Auto) Baso % (Auto) Lymph # (Auto) [place] # (Auto) Eos # (Auto) Baso # (Auto) Abs Immat Gran (auto) Absolute Neuts (auto) Absolute Nucleated RBC Nucleated RBC % (auto) PT INR Anion Gap Estim Creat Clear Calc Estimated GFR POC Glucose 155 H 199 H Random Glucose Calcium Assessment and Plan (1) Combative behavior: Status: Acute (2) Diabetes type 2: Status: Acute (3) Morbid obesity: Status: Acute (4) Dementia with Lewy bodies: Status: Acute (5) Lewy body dementia with agitation: Status: Acute (6) Eosinophilic asthma: Status: Acute (7) Asthma-COPD overlap syndrome: Status: Acute (8) Acute bronchitis: Status: Acute (9) Acute hypoxemic respiratory failure: Status: Acute (10) COPD (chronic obstructive pulmonary disease): Status: Acute Plan 74-year-old male, with a history of Lewy body dementia c/b agitation and visual hallucinations, COPD, T2 DM, mechanical AVR on warfarin (2-3), PPM placement, brought into hospital by family 02/06/2025 with increased agitation & hallucinations after medication change Risperdal b.i.d. to t.i.d.; bed hold in the ED pending [facility] placement; c/b hypoxia today with increased agitation, admitted with acute on chronic hypoxic respiratory failure 2/2 infective exacerbation of COPD with acute delirium and worsening agitation/combativeness. Acute bronchitis Acute hypoxic respiratory failure COPD Dyspneic and hypoxic on evaluation. Increased mucus congestion. Chest x-ray and CT scan revealing evidence of acute bronchitis White cell count increased from 7-10, with neutrophilic shift Received doxycycline methylprednisolone 60 mg IV in the emergency room Currently off oxygen - improving - nonreliably takes PO medications - will continue IV for now PLAN - DuoNebs - oxygen as needed - doxycycline 100 mg b.i.d. p.o. or IV - methylprednisolone 60 mg IV OD - guaifenesin Acute delirium Aggression and combativeness Visual and auditory hallucinations Lewy body dementia with behaviors Recommendations from Psychiatry greatly appreciated PLAN - continue follow up with Psychiatry - Recommending discontinuation of risperidone and switch to quetiapine 25 mg q.h.s. and 25 mg b.i.d. p.r.n. for agitation - Continue rivastigmine 1.5 mg b.i.d. - continue sertraline 50 mg OD p.o. - Recommended avoidance of haloperidol and other 1st generation antipsychotics Mechanical Aortic valve replacement On warfarin (2-3) Patient has been refusing warfarin. Was supratherapeutic a few days ago, currently INR is 2.5 - which has been worsening; currently 3.4; NOT taking warfarin while here. Goal INR 2-3 with mechanical AVR PLAN - NO warfarin - aPTT tomorrow - aim for therapeutic enoxaparin (1 mg/kg) once INR below 2 - Check INR daily T2 DM Monitor sugar closely with steroid POC glucose ISS Continue glipizide 5 mg OD p.o. CHRONIC MEDICAL ISSUES HLD: Atorvastatin 20 mg OD p.o. HTN: Continue lisinopril 5 mg p.o., metoprolol 25 mg b.i.d. QUALITY METRICS - VTE: Therapeutic enoxaparin 1 mg/kg after INR below 2 - CODE STATUS: DNR/DNI - DIET: Diabetic diet Total time managing care of this patient today: 35 minutes. Quality Stroke Does the patient have a stroke diagnosis?: No VTE Prior VTE?: No VTE Risk Level:: Medical - moderate - high VTE Device Contraindication: Patient Refused VTE Drug Contraindication: N/A - Med Ordered
--- NOTE | 2025-02-14 14:12 | P.CNPS_ITS ---
History of Present Illness Date of Service: 02/14/25 Chief Complaint: Acute Hypoxic Resp Failure Acute Bronchitis Deliri Reason for Consult: LBD with hallucinations Requesting physician: Bg Arguelles Discussed with referring provider: Yes Sources of Information: patient interviewed and chart reviewed Additional Sources of Information: spoke w/ pt's nurse HPI Narrative: Psychiatry consult f/u note Pt is known to t/w from initial psychiatry consult on 02/08/25 in the ED. Pt was started on rivastigmine 1.5 mg bid and quetiapine 25 mg bid prn for agitation, continued on sertraline 50 mg qd. He has received one prn dose of quetiapine on 02/12. He is now medically admitted for tx of acute bronchitis, acute hypoxic respiratory failure and infective exacerbation of COPD. Per t/w's communication with pt's nurse and Dr. Arguelles, pt has been combative and aggressive intermittently, especially with direct patient care. These sx have improved overall as the medical issues haveimproved. T/W met with pt in his room, where he was sitting up watching TV. He is dressed in a hospital alberta, wearing glasses, and calmly watching TV. This is a significant contrast from t/w's initial encounter w/ pt last week in the ED, where he was lying in his bed naked, tangled in his bed sheets, agitated and unable to engage in any meaningful conversation. Pt states that he's in [place].... I get confused . States the year is 2002 or 2003. He denies feeling anxious. States he felt 'sad when I saw a girl I was going out with in the neighbor's yard. She came up the top of the [place] and I gave her a shout . I got all my doctors come over the [place] . He reports I was scared in the beginning. They wanted to throw the people out to the police . He denies any physical discomfort. States he had stomach pain earlier. He reports that he sees stuff floating around but when asked for further details about any hallucinations, he denied seeing things that others don't. He denies SI or violent ideation PMF Medical History Parkinsonism, secondary Dementia with Lewy bodies Cerebral microvascular disease Cerebral atrophy Dementia Morbid obesity Cough Asthma-COPD overlap syndrome Steroid dependence COPD (chronic obstructive pulmonary disease) Eosinophilic asthma Surgical History S/P cardiac pacemaker procedure Social History: lives at home with . Supportive daughter Diagnostics Vital Signs (24Hr): Vital Signs - 24 hr 02/13/25 20:17 02/13/25 20:54 02/14/25 03:29 Temperature 97.1 F 97.6 F Pulse Rate 61 Respiratory Rate 18 Blood Pressure 98/52 L 117/65 02/14/25 08:45 02/14/25 08:45 Temperature Pulse Rate 60 Respiratory Rate Blood Pressure 120/60 120/60 BMI result Body Mass Index 39.6 Labs 02/14/25 06:04 02/14/25 06:04 Labs: Laboratory Results - last 48 hr 02/12/25 02/12/25 02/12/25 14:57 14:58 16:04 WBC 7.3 RBC 3.36 L Hgb 11.3 L Hct 33.8 L MCV 100.6 H MCH 33.6 H MCHC 33.4 RDW 14.2 Plt Count 142 L MPV 10.8 Immature Gran % (Auto) 0.4 Neut % (Auto) 71.9 Lymph % (Auto) 13.3 L [place] % (Auto) 10.0 Eos % (Auto) 4.1 H Baso % (Auto) 0.3 Lymph # (Auto) 1.0 L [place] # (Auto) 0.7 Eos # (Auto) 0.3 Baso # (Auto) 0.0 Abs Immat Gran (auto) 0.03 Absolute Neuts (auto) 5.3 Absolute Nucleated RBC 0.000 Nucleated RBC % (auto) 0.0 Smear Tech's Comments PT 42.4 H D INR 3.7 H Sodium 147 H Potassium 4.5 Chloride 113 H Carbon Dioxide 25 Anion Gap 14 BUN 50 H Creatinine 1.49 H Estim Creat Clear Calc 51.0 Estimated GFR 46 POC Glucose 144 H Random Glucose 143 H Calcium 9.4 Iron 46 TIBC 180 L % Saturation 26 Unsat Iron Binding 134 NT-Pro-B Natriuret Pep 1428.9 H Vitamin B12 Folate TSH 0.87 02/12/25 02/12/25 02/13/25 19:59 21:09 06:30 WBC 6.3 RBC 3.42 L Hgb 11.4 L Hct 34.4 L MCV 100.6 H MCH 33.3 H MCHC 33.1 RDW 14.0 Plt Count 150 L MPV 11.0 Immature Gran % (Auto) 0.8 H Neut % (Auto) 90.8 H Lymph % (Auto) 6.3 L [place] % (Auto) 2.1 Eos % (Auto) 0.0 Baso % (Auto) 0.0 Lymph # (Auto) 0.4 L [place] # (Auto) 0.1 Eos # (Auto) 0.0 Baso # (Auto) 0.0 Abs Immat Gran (auto) 0.05 H Absolute Neuts (auto) 5.8 Absolute Nucleated RBC 0.000 Nucleated RBC % (auto) 0.0 Smear Tech's Comments VERIFIED PT 44.8 H INR 3.9 H Sodium 145 Potassium 4.5 Chloride 111 H Carbon Dioxide 24 Anion Gap 15 BUN 53 H Creatinine 1.12 Estim Creat Clear Calc 67.8 Estimated GFR > 60 POC Glucose 179 H Random Glucose 153 H Calcium 9.4 Iron TIBC % Saturation Unsat Iron Binding NT-Pro-B Natriuret Pep Vitamin B12 610 Folate 5.3 TSH 02/13/25 02/13/25 02/13/25 08:08 11:07 16:12 WBC RBC Hgb Hct MCV MCH MCHC RDW Plt Count MPV Immature Gran % (Auto) Neut % (Auto) Lymph % (Auto) [place] % (Auto) Eos % (Auto) Baso % (Auto) Lymph # (Auto) [place] # (Auto) Eos # (Auto) Baso # (Auto) Abs Immat Gran (auto) Absolute Neuts (auto) Absolute Nucleated RBC Nucleated RBC % (auto) Smear Tech's Comments PT INR Sodium Potassium Chloride Carbon Dioxide Anion Gap BUN Creatinine Estim Creat Clear Calc Estimated GFR POC Glucose 147 H 175 H 80 Random Glucose Calcium Iron TIBC % Saturation Unsat Iron Binding NT-Pro-B Natriuret Pep Vitamin B12 Folate TSH 02/13/25 02/14/25 02/14/25 19:39 06:04 07:17 WBC 10.1 RBC 3.34 L Hgb 11.0 L Hct 33.6 L MCV 100.6 H MCH 32.9 MCHC 32.7 RDW 13.8 Plt Count 155 L MPV 10.7 Immature Gran % (Auto) 0.8 H Neut % (Auto) 89.1 H Lymph % (Auto) 6.0 L [place] % (Auto) 4.0 Eos % (Auto) 0.0 Baso % (Auto) 0.1 Lymph # (Auto) 0.6 L [place] # (Auto) 0.4 Eos # (Auto) 0.0 Baso # (Auto) 0.0 Abs Immat Gran (auto) 0.08 H Absolute Neuts (auto) 9.0 H Absolute Nucleated RBC 0.000 Nucleated RBC % (auto) 0.0 Smear Tech's Comments PT 39.5 H INR 3.4 H Sodium 143 Potassium 4.2 Chloride 112 H Carbon Dioxide 24 Anion Gap 11 L BUN 55 H Creatinine 1.05 Estim Creat Clear Calc 72.3 Estimated GFR > 60 POC Glucose 142 H 155 H Random Glucose 152 H Calcium 9.1 Iron TIBC % Saturation Unsat Iron Binding NT-Pro-B Natriuret Pep Vitamin B12 Folate TSH 02/14/25 11:26 WBC RBC Hgb Hct MCV MCH MCHC RDW Plt Count MPV Immature Gran % (Auto) Neut % (Auto) Lymph % (Auto) [place] % (Auto) Eos % (Auto) Baso % (Auto) Lymph # (Auto) [place] # (Auto) Eos # (Auto) Baso # (Auto) Abs Immat Gran (auto) Absolute Neuts (auto) Absolute Nucleated RBC Nucleated RBC % (auto) Smear Tech's Comments PT INR Sodium Potassium Chloride Carbon Dioxide Anion Gap BUN Creatinine Estim Creat Clear Calc Estimated GFR POC Glucose 199 H Random Glucose Calcium Iron TIBC % Saturation Unsat Iron Binding NT-Pro-B Natriuret Pep Vitamin B12 Folate TSH Imaging Radiology Impressions: ITS Impressions Head CT 02/06/25 10:31 IMPRESSION: 1. No acute intracranial abnormality. 2. Stable chronic changes. Electronically signed by: Sundra Lee MD 02/06/2025 10:53 AM EDT RP Chest X-Ray 02/11/25 06:31 IMPRESSION: Borderline cardiomegaly. No acute cardiopulmonary abnormality. Electronically signed by: Irwin Cai MD 02/11/2025 08:11 AM EDT RP Chest CT 02/11/25 09:14 IMPRESSION: Bronchial wall thickening in the lower lobes, suggestive of bronchitis. No focal airspace opacity is identified. Electronically signed by: Irwin Cai MD 02/11/2025 09:45 AM EDT Mental Status Exam Mental Status Exam Narrative: Appearance: Grooming/hygiene wnl. Wearing hospital [place]berta and glasses. Fair eye contact Attitude:Cooperative Communication: Hard of hearing. Better able to hear t/w today compared to last week. Speech is fluent at times, intermittent dysarthria and aphasia Motor activity: Calm and without any tics, tremors or dyskinesias. Mood: as noted above Affect: appropriate, reactive, fairly bright Thought process: disorganized, tangential, confabulation Thought content: confused Perception: Denies current AH/VH. Does not appear to respond to internal stimuli Oriented to person only Cognition- significant impairment, not formally tested Insight: impaired Judgment: impaired Medications Medications Current Medications Acetaminophen (Acetaminophen 325 Mg Tablet) 975 mg PO DAILY PRN PRN Reason: Pain, Mild 1-3,fever,headache Atorvastatin Calcium (Atorvastatin Calcium 20 Mg Tablet) 20 mg PO DAILY@1930 [facility] Last Admin: 02/13/25 20:06 Dose: 20 mg Calcium Carbonate (Calcium Carbonate 750 Mg Tab.Chew) 750 mg PO Q4H PRN PRN Reason: Heartburn Dextrose (Dextrose 50 % 25 Gm/50 Ml Syringe) 25 gm IVPUSH Q15M PRN; Protocol PRN Reason: per Hypoglycemia Standing Ord. Doxycycline Monohydrate (Doxycycline Monohydrate 100 Mg Capsule) 100 mg PO Q12H [facility] Enoxaparin Sodium (Enoxaparin Sodium 120 Mg/0.8 Ml Syringe) 120 mg SUBCUT Q12H [facility] On Hold: 02/12/25 16:16 Last Admin: 02/12/25 10:31 Dose: 120 mg Fluticasone/Vilanterol (Fluticasone/Vilanterol 100/25 Blst.W.Dev) 1 puff INHALE RDAILY [facility] Last Admin: 02/14/25 08:16 Dose: Not Given Glipizide (Glipizide Xl 5 Mg Tab.Er.24) 5 mg PO DAILY@0815 [facility] Last Admin: 02/14/25 08:48 Dose: 5 mg Glucose (Glucose Gel 15 Gm Gel..Gram.) 15 gm PO Q15M PRN; Protocol PRN Reason: per Hypoglycemia Standing Ord. Insulin Glargine (Insulin Glargine,Hum.Rec.Anlog 100 Unit/Ml 10 Ml Vial) 10 unit SUBCUT DAILY PRN PRN Reason: HYPERGLYCEMIA Insulin Human Lispro (Insulin Lispro 100 Unit/Ml 3 Ml Vial) 0 unit SUBCUT QIDACHS [facility]; Protocol Last Admin: 02/14/25 12:40 Dose: 2 unit Lisinopril (Lisinopril 5 Mg Tablet) 5 mg PO DAILY [facility]; Protocol Last Admin: 02/14/25 08:45 Dose: 5 mg Magnesium Hydroxide (Milk Of Magnesia 30 Ml Oral.Susp) 30 ml PO DAILY PRN PRN Reason: Constipation Melatonin (Melatonin 3 Mg Tablet) 6 mg PO BEDTIME PRN PRN Reason: Insomnia Last Admin: 02/12/25 20:05 Dose: 6 mg Methylprednisolone Sodium Succinate (Methylprednisolone Sod Succ 40 Mg/Ml Vial) 40 mg IVPUSH Q12H [facility] Last Admin: 02/14/25 04:46 Dose: 40 mg Metoprolol Tartrate (Metoprolol Tartrate 25 Mg Tablet) 25 mg PO BID [facility]; Protocol Last Admin: 02/14/25 08:45 Dose: 25 mg Montelukast Sodium (Montelukast Sodium 10 Mg Tablet) 10 mg PO BEDTIME [facility] Last Admin: 02/13/25 20:07 Dose: 10 mg Quetiapine Fumarate (Quetiapine Fumarate 25 Mg Tablet) 25 mg PO BID PRN PRN Reason: agitation Last Admin: 02/12/25 13:15 Dose: 25 mg Rivastigmine Tartrate (Rivastigmine Tartrate 1.5 Mg Capsule) 1.5 mg PO BID [facility] Last Admin: 02/14/25 08:45 Dose: 1.5 mg Sertraline HCl (Sertraline Hcl 50 Mg Tablet) 50 mg PO DAILY [facility] Last Admin: 02/14/25 08:45 Dose: 50 mg Sodium Chloride (0.9 % Sodium Chloride Flush 3 Ml Syringe) 3 ml IVFLUSH QSHIFT [facility] Last Admin: 02/14/25 08:48 Dose: 3 ml Allergies Allergies Allergy/AdvReac Type Severity Reaction Status Date / Time metformin AdvReac Intermediate Stomach Verified 02/06/25 09:52 Upset Assessment & Plan Assessment & Plan (1) Delirium due to another medical condition: Status: Acute Code(s): F05 - Delirium due to known physiological condition Assessment and Plan: In setting of hypoxic respiratory failure, infectious exacerbation of COPD and bronchitis (2) Lewy body dementia with agitation: Qualifiers: Dementia severity: severe Qualified Code(s): G31.83 - Neurocognitive disorder with Lewy bodies; F02.C11 - Dementia in other diseases classified elsewhere, severe, with agitation Status: Acute Code(s): G31.83 - Neurocognitive disorder with Lewy bodies; F02.811 - Dementia in other diseases classified elsewhere, unspecified severity, with agitation Plan Pt's mental status and behaviors have improved overall since his pulmonary issues have improved. He still has intermittent agitation/combative behavior w/ attempts to provide direct care. Plan: Started standing dose of quetiapine 12.5 mg qhs off-label for tx of agitation/anxiety Continue quetiapine 25 mg bid prn for agitation/combativeness. Continue rivastigmine 1.5 mg bid which can reduce hallucinations/anxiety/delusions and improve attention. Dose can be titrated to 1.5 mg tid if needed after taking 1.5 mg bid x 14 days. Ideally avoid first generation antipsychotics (including haldol) and higher potency atypical antipsychotics s/a olanzapine and risperidone since they have a higher risk of exacerbating motor sx of parkinsons. Thank you for referring Mr. Vasquez to our service. Please Bayard Text me with any other questions re: Mr. Vasquez's care. Total time managing care of this patient today ____ minutes.
[2025-02-14 16:00] VITALS: BP 99/69; PULSE 91; RESP 18; TEMP 36.1; O2SAT 94
[2025-02-14 16:12] LABS: Glucose, Whole Blood 90 mg/dL (60-115)
[2025-02-14 20:31] LABS: Glucose, Whole Blood 179 mg/dL (60-115)
[2025-02-15] VITALS: BP 114/80; PULSE 66; RESP 18; TEMP 36.3; O2SAT 93
[2025-02-15 07:25] LABS: MANUAL DIFF FLAG NO
[2025-02-15 07:32] VITALS: BP 129/66; PULSE 60; RESP 16; TEMP 36.8; O2SAT 97
[2025-02-15 07:32] LABS: Hematocrit 36.5 % (42.0-52.0); Hemoglobin 12.1 g/dl (14.0-18.0); Imm Gran Abs Auto 0.05 X10*3/uL (0.00-0.03); Imm Gran Pct Auto 0.5 % (0.0-0.4); Lymphocytes Absolute Auto 0.8 X10*3/uL (1.2-4.9); Mean Corpuscular HGB Conc 33.2 g/dl (31.0-36.0); Mean Corpuscular Hemoglobin 33.2 pg (27.0-33.0); Mean Corpuscular Volume 100.0 fL (80.0-98.0); NRBC Abs Auto 0.000 X10*3/uL (0.0-0.012); NRBC Pct Auto 0.0 /100WBC (0.0-0.2); Platelet Count 196 X10*3/uL (160-400); Red Blood Count 3.65 X10*6/uL (4.60-5.80); White Blood Count 10.2 X10*3/uL (4.8-10.8)
[2025-02-15 07:39] LABS: Glucose, Whole Blood 151 mg/dL (60-115)
[2025-02-15 07:47] LABS: Anion Gap 13 (12-20); Blood Urea Nitrogen 51 mg/dL (9-16); Calcium 9.7 mg/dL (8.4-10.2); Carbon Dioxide 23 mmol/L (22-29); Chloride 111 mmol/L (96-108); Creatinine Clr Calc Pharmacy 74.5; Estimated Glomerular Filt Rate > 60; Potassium 4.3 mmol/L (3.3-5.1); Sodium 143 mmol/L (135-145)
[2025-02-15 07:50] LABS: INTERNATIONAL NORM RATIO 2.6 (0.9-1.1); Prothrombin Time 30.2 SEC (10.9-12.4)
[2025-02-15 07:53] LABS: Partial Thromboplastin Time 34.8 SEC (26.7-34.1)
[2025-02-15] MEDS: 0.9 % Sodium Chloride Flush 3 ML SYRINGE IVFLUSH ×3 (08:15→21:01)
[2025-02-15 11:19] LABS: Glucose, Whole Blood 225 mg/dL (60-115)
--- NOTE | 2025-02-15 12:48 | MHC.CM.PN ---
EMR REVIEWED AND PER MD ROUNDS, PT WILL NEED [facility] ST[facility], CM WILL CONTINUE TO FOLLOW FOR ANY CHANGE TO DC PLAN/NEEDS. REQUEST SENT TO FINANCIAL SERVICES TO REACH OUT TO .
--- NOTE | 2025-02-15 13:24 | HO.PM.IMPN ---
Subjective Subjective Date of Service: 02/15/25 Interval History: Remains confused and altered at baseline. Intermittently compliant with medications Medically cleared currently Review of Systems Review of Systems: Yes all other systems are reviewed and are negative Physical Exam Exam: Exam: General: A&O x0. Not oriented to person place time or situation. Agitated and irritable. Cardiac: S1, 2 present, without S3/4 - well perfused - RUSB murmur auscultated grade III Respiratory: Normal breath sounds auscultated throughout upper lobes only - patient refused remainder of examination GI/ : Unable to obtain examination MSK: Unable to obtain examination Neurological: Unable to obtain examination Psychiatry: Visual and auditory hallucinations. Very paranoid. Combative. Pleasant otherwise. Vital Signs: Vital Signs: Last Vital Signs Temp 98.3 F 02/15/25 07:32 Pulse 60 02/15/25 07:32 Resp 16 02/15/25 07:32 BP 129/66 02/15/25 07:32 Pulse Ox 97 02/15/25 07:32 O2 Del Method Room Air 02/15/25 07:32 O2 Flow Rate 2 02/11/25 07:57 BMI result Body Mass Index 39.6 Objective Data Active Medications Acetaminophen (Acetaminophen 325 Mg Tablet) 975 mg PO DAILY PRN PRN Reason: Pain, Mild 1-3,fever,headache Atorvastatin Calcium (Atorvastatin Calcium 20 Mg Tablet) 20 mg PO DAILY@1930 [facility] Last Admin: 02/14/25 21:02 Dose: 20 mg Documented By: KOBY Calcium Carbonate (Calcium Carbonate 750 Mg Tab.Chew) 750 mg PO Q4H PRN PRN Reason: Heartburn Dextrose (Dextrose 50 % 25 Gm/50 Ml Syringe) 25 gm IVPUSH Q15M PRN; Protocol PRN Reason: per Hypoglycemia Standing Ord. Doxycycline Monohydrate (Doxycycline Monohydrate 100 Mg Capsule) 100 mg PO Q12H [facility] Last Admin: 02/15/25 05:11 Dose: 100 mg Documented By: KOBY Enoxaparin Sodium (Enoxaparin Sodium 120 Mg/0.8 Ml Syringe) 120 mg SUBCUT Q12H [facility] On Hold: 02/12/25 16:16 Last Admin: 02/12/25 10:31 Dose: 120 mg Documented By: CRISTIANE Fluticasone/Vilanterol (Fluticasone/Vilanterol 100/25 Blst.W.Dev) 1 puff INHALE RDAILY [facility] Last Admin: 02/15/25 07:53 Dose: Not Given Documented By: PARISH Non-Admin Reason: Agitation Glipizide (Glipizide Xl 5 Mg Tab.Er.24) 5 mg PO DAILY@0815 [facility] Last Admin: 02/15/25 08:09 Dose: 5 mg Documented By: MARIANA Glucose (Glucose Gel 15 Gm Gel..Gram.) 15 gm PO Q15M PRN; Protocol PRN Reason: per Hypoglycemia Standing Ord. Insulin Glargine (Insulin Glargine,Hum.Rec.Anlog 100 Unit/Ml 10 Ml Vial) 10 unit SUBCUT DAILY PRN PRN Reason: HYPERGLYCEMIA Insulin Human Lispro (Insulin Lispro 100 Unit/Ml 3 Ml Vial) 0 unit SUBCUT QIDACHS [facility]; Protocol Last Admin: 02/15/25 11:51 Dose: 4 unit Documented By: MARIANA Lisinopril (Lisinopril 5 Mg Tablet) 5 mg PO DAILY [facility]; Protocol Last Admin: 02/15/25 08:05 Dose: 5 mg Documented By: MARIANA Magnesium Hydroxide (Milk Of Magnesia 30 Ml Oral.Susp) 30 ml PO DAILY PRN PRN Reason: Constipation Melatonin (Melatonin 3 Mg Tablet) 6 mg PO BEDTIME PRN PRN Reason: Insomnia Last Admin: 02/12/25 20:05 Dose: 6 mg Documented By: JOVAN Methylprednisolone Sodium Succinate (Methylprednisolone Sod Succ 40 Mg/Ml Vial) 40 mg IVPUSH Q12H [facility] Last Admin: 02/15/25 05:04 Dose: 40 mg Documented By: KOBY Metoprolol Tartrate (Metoprolol Tartrate 25 Mg Tablet) 25 mg PO BID [facility]; Protocol Last Admin: 02/15/25 08:06 Dose: 25 mg Documented By: MARIANA Montelukast Sodium (Montelukast Sodium 10 Mg Tablet) 10 mg PO BEDTIME [facility] Last Admin: 02/14/25 21:00 Dose: 10 mg Documented By: KOBY Quetiapine Fumarate (Quetiapine Fumarate 25 Mg Tablet) 25 mg PO BID PRN PRN Reason: agitation Last Admin: 02/15/25 08:06 Dose: 25 mg Documented By: MARIANA Quetiapine Fumarate (Quetiapine Fumarate 25 Mg Tablet) 12.5 mg PO BEDTIME [facility] Last Admin: 02/14/25 21:00 Dose: 12.5 mg Documented By: KOBY Rivastigmine Tartrate (Rivastigmine Tartrate 1.5 Mg Capsule) 1.5 mg PO BID [facility] Last Admin: 02/15/25 08:05 Dose: 1.5 mg Documented By: MARIANA Sertraline HCl (Sertraline Hcl 50 Mg Tablet) 50 mg PO DAILY [facility] Last Admin: 02/15/25 08:06 Dose: 50 mg Documented By: MARIANA Sodium Chloride (0.9 % Sodium Chloride Flush 3 Ml Syringe) 3 ml IVFLUSH QSHIFT [facility] Last Admin: 02/15/25 08:15 Dose: 3 ml Documented By: MARIAAN Warfarin Sodium (Warfarin Sodium 5 Mg Tablet) 5 mg PO SuTuThSa@1800 [facility] Warfarin Sodium (Warfarin Sodium 2.5 Mg Tablet) 2.5 mg PO MoWeFr@1800 [facility] Labs 02/15/25 06:24 02/15/25 06:24 Labs: Laboratory Results - last 24 hr 02/14/25 02/14/25 02/15/25 16:08 20:28 06:24 MCV 100.0 H MCH 33.2 H MCHC 33.2 RDW 14.2 Plt Count 196 D MPV 10.7 Immature Gran % (Auto) 0.5 H Neut % (Auto) 86.8 H Lymph % (Auto) 7.5 L [place] % (Auto) 5.2 Eos % (Auto) 0.0 Baso % (Auto) 0.0 Lymph # (Auto) 0.8 L [place] # (Auto) 0.5 Eos # (Auto) 0.0 Baso # (Auto) 0.0 Abs Immat Gran (auto) 0.05 H Absolute Neuts (auto) 8.9 H Absolute Nucleated RBC 0.000 Nucleated RBC % (auto) 0.0 PT 30.2 H D INR 2.6 H APTT 34.8 H Anion Gap 13 Estim Creat Clear Calc 74.5 Estimated GFR > 60 POC Glucose 90 179 H Random Glucose 140 H Calcium 9.7 D 02/15/25 02/15/25 07:29 11:13 MCV MCH MCHC RDW Plt Count MPV Immature Gran % (Auto) Neut % (Auto) Lymph % (Auto) [place] % (Auto) Eos % (Auto) Baso % (Auto) Lymph # (Auto) [place] # (Auto) Eos # (Auto) Baso # (Auto) Abs Immat Gran (auto) Absolute Neuts (auto) Absolute Nucleated RBC Nucleated RBC % (auto) PT INR APTT Anion Gap Estim Creat Clear Calc Estimated GFR POC Glucose 151 H 225 H Random Glucose Calcium Assessment and Plan (1) Agitation: Status: Acute (2) Combative behavior: Status: Acute (3) Aortic valve replaced: Status: Acute (4) Current use of anticoagulant therapy: Status: Acute (5) Delirium due to another medical condition: Status: Acute (6) Lewy body dementia with agitation: Status: Acute (7) Eosinophilic asthma: Status: Acute (8) COPD (chronic obstructive pulmonary disease): Status: Acute (9) Acute hypoxemic respiratory failure: Status: Acute Plan 74-year-old male, with a history of Lewy body dementia c/b agitation and visual hallucinations, COPD, T2 DM, mechanical AVR on warfarin (2-3), PPM placement, brought into hospital by family 02/06/2025 with increased agitation & hallucinations after medication change Risperdal b.i.d. to t.i.d.; bed hold in the ED pending [facility] placement; c/b hypoxia today with increased agitation, admitted with acute on chronic hypoxic respiratory failure 2/2 infective exacerbation of COPD with acute delirium and worsening agitation/combativeness. Acute bronchitis - RESOLVED Acute hypoxic respiratory failure COPD Dyspneic and hypoxic on evaluation. Increased mucus congestion. Chest x-ray and CT scan revealing evidence of acute bronchitis White cell count increased from 7-10, with neutrophilic shift Received doxycycline methylprednisolone 60 mg IV in the emergency room Currently off oxygen - improving - nonreliably takes PO medications - will continue IV for now PLAN - DuoNebs - oxygen as needed - doxycycline 100 mg b.i.d. p.o. - methylprednisolone --> Prednisone 40mg OD PO - guaifenesin Acute delirium Aggression and combativeness Visual and auditory hallucinations Lewy body dementia with behaviors Recommendations from Psychiatry greatly appreciated PLAN - continue follow up with Psychiatry - Recommending discontinuation of risperidone and switch to quetiapine 25 mg q.h.s. and 25 mg b.i.d. p.r.n. for agitation - Continue rivastigmine 1.5 mg b.i.d. - continue sertraline 50 mg OD p.o. - Recommended avoidance of haloperidol and other 1st generation antipsychotics Mechanical Aortic valve replacement On warfarin (2-3) Patient has been refusing warfarin. Was supratherapeutic a few days ago, currently INR is 2.5 - which has been worsening; currently 3.4; NOT taking warfarin while here. Goal INR 2-3 with mechanical AVR PLAN - Restart warfarin; 5mg SuTuThSa - Check INR daily 2.5mg MWF T2 DM Monitor sugar closely with steroid POC glucose ISS Continue glipizide 5 mg OD p.o. CHRONIC MEDICAL ISSUES HLD: Atorvastatin 20 mg OD p.o. HTN: Continue lisinopril 5 mg p.o., metoprolol 25 mg b.i.d. QUALITY METRICS - VTE: Therapeutic enoxaparin 1 mg/kg after INR below 2 - CODE STATUS: DNR/DNI - DIET: Diabetic diet Total time managing care of this patient today: 35 minutes. Quality Stroke Does the patient have a stroke diagnosis?: No VTE Prior VTE?: No VTE Risk Level:: Medical - moderate - high VTE Device Contraindication: Patient Refused VTE Drug Contraindication: N/A - Med Ordered
[2025-02-15 15:57] VITALS: BP 129/70; PULSE 60; RESP 18; TEMP 36.3; O2SAT 96
[2025-02-15 16:46] LABS: Glucose, Whole Blood 113 mg/dL (60-115)
[2025-02-15 21:01] LABS: Glucose, Whole Blood 151 mg/dL (60-115)
[2025-02-15 23:35] VITALS: BP 135/68; PULSE 63; RESP 18; TEMP 36.2; O2SAT 97
[2025-02-16] MEDS: OLANZapine 10 MG VIAL 5 MG IM (07:06)
[2025-02-16 07:49] LABS: Glucose, Whole Blood 115 mg/dL (60-115)
[2025-02-16 07:58] VITALS: BP 106/57; PULSE 60; RESP 18; TEMP 36.2; O2SAT 93
[2025-02-16] MEDS: 0.9 % Sodium Chloride Flush 3 ML SYRINGE IVFLUSH ×3 (09:07→20:27)
--- NOTE | 2025-02-16 09:11 | PC.NURSE ---
Upon shift arrival pt was heard from the end of the hallway yelling out. RN attempted to calm patient and redirect with no improvement. Patient contniued to yell and attempted to get out of bed and became aggressive, hitting and grabbing at staff. RN attempted to give PRN po seroquel but patient was non compliant and would not take anything by mouth. DR. Arguelles was contacted and gave verbal ordered for a one time dose of 5mg IM zyprexa. PM RN assisted with administering IM dose which was inititally effective. Pt calmed down and went to sleep for about an hour. Patient refused breakfast and refused all meds. Continues to yell out and is not redirectable. Refuses all care and will not follow commands.
[2025-02-16 11:11] LABS: Glucose, Whole Blood 125 mg/dL (60-115)
[2025-02-16 11:45] LABS: Hematocrit 35.9 % (42.0-52.0); Hemoglobin 12.1 g/dl (14.0-18.0); Imm Gran Abs Auto 0.06 X10*3/uL (0.00-0.03); Imm Gran Pct Auto 0.6 % (0.0-0.4); Lymphocytes Absolute Auto 0.9 X10*3/uL (1.2-4.9); Mean Corpuscular HGB Conc 33.7 g/dl (31.0-36.0); Mean Corpuscular Hemoglobin 33.6 pg (27.0-33.0); Mean Corpuscular Volume 99.7 fL (80.0-98.0); NRBC Abs Auto 0.000 X10*3/uL (0.0-0.012); NRBC Pct Auto 0.0 /100WBC (0.0-0.2); Platelet Count 176 X10*3/uL (160-400); Red Blood Count 3.60 X10*6/uL (4.60-5.80); White Blood Count 10.0 X10*3/uL (4.8-10.8)
[2025-02-16 11:54] LABS: INTERNATIONAL NORM RATIO 3.8 (0.9-1.1); Prothrombin Time 43.7 SEC (10.9-12.4)
[2025-02-16 11:59] LABS: Anion Gap 11 (12-20); Blood Urea Nitrogen 51 mg/dL (9-16); Calcium 9.3 mg/dL (8.4-10.2); Carbon Dioxide 26 mmol/L (22-29); Chloride 110 mmol/L (96-108); Creatinine Clr Calc Pharmacy 73.7; Estimated Glomerular Filt Rate > 60; Potassium 4.1 mmol/L (3.3-5.1); Sodium 143 mmol/L (135-145)
--- NOTE | 2025-02-16 13:51 | HO.PM.IMPN ---
Subjective Subjective Date of Service: 02/16/25 Interval History: Episode of agitation this morning. Very combative, paranoid. Patient becoming aggressive and removing all clothing. Attempted to redirect, unsuccessfully, requiring intramuscular dose of olanzapine 5 mg, with improvement in agitation. Lying in bed comfortable post intramuscular dose. Physical Exam Exam: Exam: General: A&O x0. Not oriented to person place time or situation. Agitated and irritable. Cardiac: S1, 2 present, without S3/4 - well perfused - RUSB murmur auscultated grade III Respiratory: Normal breath sounds auscultated throughout upper lobes only - patient refused remainder of examination GI/ : Unable to obtain examination MSK: Unable to obtain examination Neurological: Unable to obtain examination. Pronounced startle reflex. Psychiatry: Visual and auditory hallucinations. Very paranoid. Combative. Pleasant otherwise. very short term memory loss. Vital Signs: Vital Signs: Last Vital Signs Temp 97.2 F 02/16/25 07:58 Pulse 60 02/16/25 07:58 Resp 18 02/16/25 07:58 BP 106/57 L 02/16/25 07:58 Pulse Ox 93 02/16/25 07:58 O2 Del Method Room Air 02/16/25 07:58 O2 Flow Rate 2 02/11/25 07:57 BMI result Body Mass Index 39.6 Objective Data Active Medications Acetaminophen (Acetaminophen 325 Mg Tablet) 975 mg PO DAILY PRN PRN Reason: Pain, Mild 1-3,fever,headache Atorvastatin Calcium (Atorvastatin Calcium 20 Mg Tablet) 20 mg PO DAILY@1930 [facility] Last Admin: 02/15/25 21:00 Dose: 20 mg Documented By: KOBY Calcium Carbonate (Calcium Carbonate 750 Mg Tab.Chew) 750 mg PO Q4H PRN PRN Reason: Heartburn Dextrose (Dextrose 50 % 25 Gm/50 Ml Syringe) 25 gm IVPUSH Q15M PRN; Protocol PRN Reason: per Hypoglycemia Standing Ord. Doxycycline Monohydrate (Doxycycline Monohydrate 100 Mg Capsule) 100 mg PO Q12H [facility] Last Admin: 02/16/25 05:58 Dose: Not Given Documented By: KOBY Non-Admin Reason: Patient Refused Enoxaparin Sodium (Enoxaparin Sodium 120 Mg/0.8 Ml Syringe) 120 mg SUBCUT Q12H [facility] On Hold: 02/12/25 16:16 Last Admin: 02/12/25 10:31 Dose: 120 mg Documented By: CRISTIANE Fluticasone/Vilanterol (Fluticasone/Vilanterol 100/ Blst.W.Dev) 1 puff INHALE RDAILY [facility] Last Admin: 02/16/25 07:59 Dose: Not Given Documented By: PROMISE Non-Admin Reason: Agitation Glipizide (Glipizide Xl 5 Mg Tab.Er.24) 5 mg PO DAILY@0815 [facility] Last Admin: 02/16/25 09:05 Dose: Not Given Documented By: ELISA Non-Admin Reason: Patient Refused Glucose (Glucose Gel 15 Gm Gel..Gram.) 15 gm PO Q15M PRN; Protocol PRN Reason: per Hypoglycemia Standing Ord. Insulin Glargine (Insulin Glargine,Hum.Rec.Anlog 100 Unit/Ml 10 Ml Vial) 10 unit SUBCUT DAILY PRN PRN Reason: HYPERGLYCEMIA Insulin Human Lispro (Insulin Lispro 100 Unit/Ml 3 Ml Vial) 0 unit SUBCUT QIDACHS [facility]; Protocol Last Admin: 02/16/25 11:21 Dose: Not Given Documented By: ELISA Non-Admin Reason: No Insulin Coverage Lisinopril (Lisinopril 5 Mg Tablet) 5 mg PO DAILY [facility]; Protocol Last Admin: 02/16/25 09:06 Dose: Not Given Documented By: ELISA Non-Admin Reason: Patient Refused Magnesium Hydroxide (Milk Of Magnesia 30 Ml Oral.Susp) 30 ml PO DAILY PRN PRN Reason: Constipation Melatonin (Melatonin 3 Mg Tablet) 6 mg PO BEDTIME PRN PRN Reason: Insomnia Last Admin: 02/12/25 20:05 Dose: 6 mg Documented By: JOVAN Metoprolol Tartrate (Metoprolol Tartrate 25 Mg Tablet) 25 mg PO BID [facility]; Protocol Last Admin: 02/16/25 09:06 Dose: Not Given Documented By: ELISA Non-Admin Reason: Patient Refused Montelukast Sodium (Montelukast Sodium 10 Mg Tablet) 10 mg PO BEDTIME [facility] Last Admin: 02/15/25 20:58 Dose: 10 mg Documented By: KOBY Prednisone (Prednisone 20 Mg Tablet) 40 mg PO DAILY [facility] Stop: 02/20/25 09:01 Last Admin: 02/16/25 09:06 Dose: Not Given Documented By: ELISA Non-Admin Reason: Patient Refused Quetiapine Fumarate (Quetiapine Fumarate 25 Mg Tablet) 25 mg PO BID PRN PRN Reason: agitation Last Admin: 02/15/25 08:06 Dose: 25 mg Documented By: MARIANA Quetiapine Fumarate (Quetiapine Fumarate 25 Mg Tablet) 12.5 mg PO BEDTIME [facility] Last Admin: 02/15/25 20:59 Dose: 12.5 mg Documented By: KOBY Rivastigmine Tartrate (Rivastigmine Tartrate 1.5 Mg Capsule) 1.5 mg PO BID [facility] Last Admin: 02/16/25 09:06 Dose: Not Given Documented By: ELISA Non-Admin Reason: Patient Refused Sertraline HCl (Sertraline Hcl 50 Mg Tablet) 50 mg PO DAILY [facility] Last Admin: 02/16/25 09:06 Dose: Not Given Documented By: ELISA Non-Admin Reason: Patient Refused Sodium Chloride (0.9 % Sodium Chloride Flush 3 Ml Syringe) 3 ml IVFLUSH QSHIFT [facility] Last Admin: 02/16/25 09:07 Dose: 3 ml Documented By: ELISA Warfarin Sodium (Warfarin Sodium 2.5 Mg Tablet) 2.5 mg PO MoWeFr@1800 [facility] Last Admin: 02/15/25 17:05 Dose: 2.5 mg Documented By: MARIANA Warfarin Sodium (Warfarin Sodium 5 Mg Tablet) 5 mg PO SuTuThSa@1800 [facility] Labs 02/16/25 11:27 02/16/25 11:27 Labs: Laboratory Results - last 24 hr 02/15/25 02/15/25 02/16/25 16:34 20:46 07:45 MCV MCH MCHC RDW Plt Count MPV Immature Gran % (Auto) Neut % (Auto) Lymph % (Auto) [place] % (Auto) Eos % (Auto) Baso % (Auto) Lymph # (Auto) [place] # (Auto) Eos # (Auto) Baso # (Auto) Abs Immat Gran (auto) Absolute Neuts (auto) Absolute Nucleated RBC Nucleated RBC % (auto) PT INR Anion Gap Estim Creat Clear Calc Estimated GFR POC Glucose 113 151 H 115 Random Glucose Calcium 02/16/25 02/16/25 11:07 11:27 MCV 99.7 H MCH 33.6 H MCHC 33.7 RDW 14.2 Plt Count 176 MPV 10.5 Immature Gran % (Auto) 0.6 H Neut % (Auto) 82.2 H Lymph % (Auto) 8.7 L [place] % (Auto) 7.8 Eos % (Auto) 0.6 Baso % (Auto) 0.1 Lymph # (Auto) 0.9 L [place] # (Auto) 0.8 Eos # (Auto) 0.1 Baso # (Auto) 0.0 Abs Immat Gran (auto) 0.06 H Absolute Neuts (auto) 8.2 Absolute Nucleated RBC 0.000 Nucleated RBC % (auto) 0.0 PT 43.7 H D INR 3.8 H Anion Gap 11 L Estim Creat Clear Calc 73.7 Estimated GFR > 60 POC Glucose 125 H Random Glucose 142 H Calcium 9.3 Assessment and Plan (1) Agitation: Status: Acute (2) Diabetes type 2: Status: Acute (3) Morbid obesity: Status: Acute (4) Lewy body dementia with agitation: Status: Acute (5) Dementia with Lewy bodies: Status: Acute (6) COPD (chronic obstructive pulmonary disease): Status: Acute (7) Acute bronchitis: Status: Acute (8) Asthma-COPD overlap syndrome: Status: Acute Plan 74-year-old male, with a history of Lewy body dementia c/b agitation and visual hallucinations, COPD, T2 DM, mechanical AVR on warfarin (2-3), PPM placement, brought into hospital by family 02/06/2025 with increased agitation & hallucinations after medication change Risperdal b.i.d. to t.i.d.; bed hold in the ED pending [facility] placement; c/b hypoxia today with increased agitation, admitted with acute on chronic hypoxic respiratory failure 2/2 infective exacerbation of COPD with acute delirium and worsening agitation/combativeness. Acute delirium Aggression and combativeness Visual and auditory hallucinations Lewy body dementia with behaviors Recommendations from Psychiatry greatly appreciated PLAN - continue follow up with Psychiatry - Recommending discontinuation of risperidone and switch to quetiapine 25 mg q.h.s. and 25 mg b.i.d. p.r.n. for agitation - Continue rivastigmine 1.5 mg b.i.d. - continue sertraline 50 mg OD p.o. - Recommended avoidance of haloperidol and other 1st generation antipsychotics Acute bronchitis - RESOLVED Acute hypoxic respiratory failure COPD Dyspneic and hypoxic on evaluation. Increased mucus congestion. Chest x-ray and CT scan revealing evidence of acute bronchitis White cell count increased from 7-10, with neutrophilic shift Received doxycycline methylprednisolone 60 mg IV in the emergency room Currently off oxygen - improving - nonreliably takes PO medications - will continue IV for now PLAN - doxycycline 100 mg b.i.d. p.o. - Prednisone 40mg OD PO Mechanical Aortic valve replacement On warfarin (2-3) Patient has been refusing warfarin. Was supratherapeutic a few days ago, currently INR is 2.5 - which has been worsening; currently 3.4; NOT taking warfarin while here. Goal INR 2-3 with mechanical AVR PLAN - Restart warfarin; 5mg SuTuThSa - Check INR daily 2.5mg MWF T2 DM Monitor sugar closely with steroid POC glucose ISS Continue glipizide 5 mg OD p.o. CHRONIC MEDICAL ISSUES HLD: Atorvastatin 20 mg OD p.o. HTN: Continue lisinopril 5 mg p.o., metoprolol 25 mg b.i.d. [facility]AL[facility] - VTE: Therapeutic enoxaparin 1 mg/kg after INR below 2 - CODE STATUS: DNR/DNI - DIET: Diabetic diet Total time managing care of this patient today: 45 minutes. Quality Stroke Does the patient have a stroke diagnosis?: No VTE Prior VTE?: No VTE Risk Level:: Medical - moderate - high VTE Device Contraindication: Patient Refused VTE Drug Contraindication: N/A - Med Ordered
[2025-02-16 15:27] VITALS: BP 98/68; PULSE 66; RESP 18; TEMP 36.6; O2SAT 95
[2025-02-16 16:06] LABS: Glucose, Whole Blood 191 mg/dL (60-115)
[2025-02-16 21:02] LABS: Glucose, Whole Blood 168 mg/dL (60-115)
[2025-02-16 23:20] VITALS: BP 100/70; PULSE 68; RESP 18; TEMP 36.2; O2SAT 96
[2025-02-17 06:20] LABS: MANUAL DIFF FLAG NO
[2025-02-17 06:25] LABS: Hematocrit 35.4 % (42.0-52.0); Hemoglobin 11.9 g/dl (14.0-18.0); Imm Gran Abs Auto 0.04 X10*3/uL (0.00-0.03); Imm Gran Pct Auto 0.6 % (0.0-0.4); Lymphocytes Absolute Auto 1.7 X10*3/uL (1.2-4.9); Mean Corpuscular HGB Conc 33.6 g/dl (31.0-36.0); Mean Corpuscular Hemoglobin 33.5 pg (27.0-33.0); Mean Corpuscular Volume 99.7 fL (80.0-98.0); NRBC Abs Auto 0.000 X10*3/uL (0.0-0.012); NRBC Pct Auto 0.0 /100WBC (0.0-0.2); Platelet Count 166 X10*3/uL (160-400); Red Blood Count 3.55 X10*6/uL (4.60-5.80); White Blood Count 7.3 X10*3/uL (4.8-10.8)
[2025-02-17 06:45] LABS: INTERNATIONAL NORM RATIO 3.9 (0.9-1.1); Prothrombin Time 44.9 SEC (10.9-12.4)
[2025-02-17 06:47] LABS: Anion Gap 12 (12-20); Blood Urea Nitrogen 49 mg/dL (9-16); Calcium 9.0 mg/dL (8.4-10.2); Carbon Dioxide 26 mmol/L (22-29); Chloride 108 mmol/L (96-108); Creatinine Clr Calc Pharmacy 68.4; Estimated Glomerular Filt Rate > 60; Potassium 4.3 mmol/L (3.3-5.1); Sodium 142 mmol/L (135-145)
[2025-02-17 07:22] VITALS: BP 111/65; PULSE 58; RESP 16; TEMP 36.2; O2SAT 97
[2025-02-17 07:52] LABS: Glucose, Whole Blood 125 mg/dL (60-115)
[2025-02-17] MEDS: 0.9 % Sodium Chloride Flush 3 ML SYRINGE IVFLUSH ×2 (08:15→16:28)
[2025-02-17] MEDS: Fluticasone/Vilanterol 100/25 BLST.W.DEV 1 PUFF INHALE (08:23)
[2025-02-17 08:25] VITALS: PULSE 64; RESP 16; O2SAT 93
[2025-02-17 12:39] LABS: Glucose, Whole Blood 254 mg/dL (60-115)
--- NOTE | 2025-02-17 12:55 | P.PNIM_ITS ---
Subjective Subjective Date of Service: 02/17/25 Interval History: Remains confused and altered. Settled today - compliance with regimen Review of Systems Review of Systems: Yes Unobtainable due to mental condition and Unobtainable due to mental status Physical Exam 2 Exam: Exam: General: A&O x0. Not oriented to person place time or situation. Agitated and irritable. Cardiac: S1, 2 present, without S3/4 - well perfused - RUSB murmur auscultated grade III Respiratory: Normal breath sounds auscultated throughout upper lobes only - patient refused remainder of examination GI/ : Unable to obtain examination MSK: Unable to obtain examination Neurological: Unable to obtain examination. Pronounced startle reflex. Psychiatry: Visual and auditory hallucinations. Very paranoid. Combative. Very short term memory loss. Vital Signs: Vital Signs: Last Vital Signs Temp 97.1 F 02/17/25 07:22 Pulse 64 02/17/25 08:25 Resp 16 02/17/25 08:25 BP 111/65 02/17/25 07:22 Pulse Ox 97 02/17/25 07:22 O2 Del Method Room Air 02/17/25 07:22 O2 Flow Rate 2 02/11/25 07:57 BMI result Body Mass Index 39.6 Objective Data Active Medications Acetaminophen (Acetaminophen 325 Mg Tablet) 975 mg PO DAILY PRN PRN Reason: Pain, Mild 1-3,fever,headache Atorvastatin Calcium (Atorvastatin Calcium 20 Mg Tablet) 20 mg PO DAILY@1930 [facility] Last Admin: 02/16/25 18:56 Dose: 20 mg Documented By: ELISA Calcium Carbonate (Calcium Carbonate 750 Mg Tab.Chew) 750 mg PO Q4H PRN PRN Reason: Heartburn Dextrose (Dextrose 50 % 25 Gm/50 Ml Syringe) 25 gm IVPUSH Q15M PRN; Protocol PRN Reason: per Hypoglycemia Standing Ord. Doxycycline Monohydrate (Doxycycline Monohydrate 100 Mg Capsule) 100 mg PO Q12H [facility] Last Admin: 02/17/25 05:47 Dose: 100 mg Documented By: KOBY Enoxaparin Sodium (Enoxaparin Sodium 120 Mg/0.8 Ml Syringe) 120 mg SUBCUT Q12H [facility] On Hold: 02/12/25 16:16 Last Admin: 02/12/25 10:31 Dose: 120 mg Documented By: CRISTIANE Fluticasone/Vilanterol (Fluticasone/Vilanterol 100/25 Blst.W.Dev) 1 puff INHALE RDAILY [facility] Last Admin: 02/17/25 08:23 Dose: 1 puff Documented By: MARTHA Glipizide (Glipizide Xl 5 Mg Tab.Er.24) 5 mg PO DAILY@0815 [facility] Last Admin: 02/17/25 08:17 Dose: 5 mg Documented By: ELISA Glucose (Glucose Gel 15 Gm Gel..Gram.) 15 gm PO Q15M PRN; Protocol PRN Reason: per Hypoglycemia Standing Ord. Insulin Glargine (Insulin Glargine,Hum.Rec.Anlog 100 Unit/Ml 10 Ml Vial) 10 unit SUBCUT DAILY PRN PRN Reason: HYPERGLYCEMIA Insulin Human Lispro (Insulin Lispro 100 Unit/Ml 3 Ml Vial) 0 unit SUBCUT QIDACHS [facility]; Protocol Last Admin: 02/17/25 12:38 Dose: 6 unit Documented By: ELISA Lisinopril (Lisinopril 5 Mg Tablet) 5 mg PO DAILY [facility]; Protocol Last Admin: 02/17/25 08:15 Dose: 5 mg Documented By: ELISA Magnesium Hydroxide (Milk Of Magnesia 30 Ml Oral.Susp) 30 ml PO DAILY PRN PRN Reason: Constipation Melatonin (Melatonin 3 Mg Tablet) 6 mg PO BEDTIME PRN PRN Reason: Insomnia Last Admin: 02/12/25 20:05 Dose: 6 mg Documented By: JOVAN Metoprolol Tartrate (Metoprolol Tartrate 25 Mg Tablet) 25 mg PO BID [facility]; Protocol Last Admin: 02/17/25 08:10 Dose: Not Given Documented By: ELISA Non-Admin Reason: Decreased Heart Rate Montelukast Sodium (Montelukast Sodium 10 Mg Tablet) 10 mg PO BEDTIME [facility] Last Admin: 02/16/25 20:24 Dose: 10 mg Documented By: KOBY Prednisone (Prednisone 20 Mg Tablet) 40 mg PO DAILY [facility] Stop: 02/20/25 09:01 Last Admin: 02/17/25 08:15 Dose: 40 mg Documented By: ELISA Quetiapine Fumarate (Quetiapine Fumarate 25 Mg Tablet) 25 mg PO BID PRN PRN Reason: agitation Last Admin: 02/16/25 16:53 Dose: 25 mg Documented By: ELISA Quetiapine Fumarate (Quetiapine Fumarate 25 Mg Tablet) 12.5 mg PO BEDTIME [facility] Last Admin: 02/16/25 20:25 Dose: 12.5 mg Documented By: KOBY Rivastigmine Tartrate (Rivastigmine Tartrate 1.5 Mg Capsule) 1.5 mg PO BID [facility] Last Admin: 02/17/25 08:15 Dose: 1.5 mg Documented By: ELISA Sertraline HCl (Sertraline Hcl 50 Mg Tablet) 50 mg PO DAILY [facility] Last Admin: 02/17/25 08:15 Dose: 50 mg Documented By: ELISA Sodium Chloride (0.9 % Sodium Chloride Flush 3 Ml Syringe) 3 ml IVFLUSH QSHIFT [facility] Last Admin: 02/17/25 08:15 Dose: 3 ml Documented By: ELISA Warfarin Sodium (Warfarin Sodium 2.5 Mg Tablet) 2.5 mg PO MoWeFr@1800 [facility] Last Admin: 02/15/25 17:05 Dose: 2.5 mg Documented By: MARIANA Warfarin Sodium (Warfarin Sodium 5 Mg Tablet) 5 mg PO SuTuThSa@1800 [facility] Labs 02/17/25 05:43 02/17/25 05:43 Labs: Laboratory Results - last 24 hr 02/16/25 02/16/25 02/17/25 15:53 20:58 05:43 MCV 99.7 H MCH 33.5 H MCHC 33.6 RDW 14.1 Plt Count 166 MPV 10.7 Immature Gran % (Auto) 0.6 H Neut % (Auto) 63.7 Lymph % (Auto) 22.9 Stewart % (Auto) 9.5 Eos % (Auto) 3.2 Baso % (Auto) 0.1 Lymph # (Auto) 1.7 Stewart # (Auto) 0.7 Eos # (Auto) 0.2 Baso # (Auto) 0.0 Abs Immat Gran (auto) 0.04 H Absolute Neuts (auto) 4.6 Absolute Nucleated RBC 0.000 Nucleated RBC % (auto) 0.0 PT 44.9 H INR 3.9 H Anion Gap 12 Estim Creat Clear Calc 68.4 Estimated GFR > 60 POC Glucose 191 H 168 H Random Glucose 124 H Calcium 9.0 02/17/25 02/17/25 07:27 12:35 MCV MCH MCHC RDW Plt Count MPV Immature Gran % (Auto) Neut % (Auto) Lymph % (Auto) Stewart % (Auto) Eos % (Auto) Baso % (Auto) Lymph # (Auto) Stewart # (Auto) Eos # (Auto) Baso # (Auto) Abs Immat Gran (auto) Absolute Neuts (auto) Absolute Nucleated RBC Nucleated RBC % (auto) PT INR Anion Gap Estim Creat Clear Calc Estimated GFR POC Glucose 125 H 254 H Random Glucose Calcium Assessment and Plan (1) Agitation: Status: Acute (2) Combative behavior: Status: Acute (3) Current use of anticoagulant therapy: Status: Acute (4) Diabetes type 2: Status: Acute (5) Morbid obesity: Status: Acute (6) Dementia: Status: Acute (7) Lewy body dementia with agitation: Status: Acute (8) COPD (chronic obstructive pulmonary disease): Status: Acute (9) Acute hypoxemic respiratory failure: Status: Acute (10) Asthma-COPD overlap syndrome: Status: Acute (11) Acute bronchitis: Status: Acute Plan 74-year-old male, with a history of Lewy body dementia c/b agitation and visual hallucinations, COPD, T2 DM, mechanical AVR on warfarin (2-3), PPM placement, brought into hospital by family 02/06/2025 with increased agitation & hallucinations after medication change Risperdal b.i.d. to t.i.d.; bed hold in the ED pending [facility] placement; c/b hypoxia today with increased agitation, admitted with acute on chronic hypoxic respiratory failure 2/2 infective exacerbation of COPD with acute delirium and worsening agitation/combativeness. Acute delirium Aggression and combativeness Visual and auditory hallucinations Lewy body dementia with behaviors Recommendations from Psychiatry greatly appreciated PLAN - continue follow up with Psychiatry - Recommending discontinuation of risperidone and switch to quetiapine 25 mg q.h.s. and 25 mg b.i.d. p.r.n. for agitation - Continue rivastigmine 1.5 mg b.i.d. - continue sertraline 50 mg OD p.o. - Recommended avoidance of haloperidol and other 1st generation antipsychotics Acute bronchitis - RESOLVED Acute hypoxic respiratory failure COPD Dyspneic and hypoxic on evaluation. Increased mucus congestion. Chest x-ray and CT scan revealing evidence of acute bronchitis White cell count increased from 7-10, with neutrophilic shift Received doxycycline methylprednisolone 60 mg IV in the emergency room Currently off oxygen - improving - nonreliably takes PO medications - will continue IV for now PLAN - doxycycline 100 mg b.i.d. p.o. for 7 days total - Prednisone 40mg OD PO for 7 days total Mechanical Aortic valve replacement On warfarin (2-3) Patient has been refusing warfarin. Was supratherapeutic a few days ago, currently INR is 2.5 - which has been worsening; currently 3.4; NOT taking warfarin while here. Goal INR 2-3 with mechanical AVR PLAN - Restart warfarin; 5mg SuTuThSa // 2.5mg MWF - Check INR daily T2 DM Monitor sugar closely with steroid POC glucose ISS Continue glipizide 5 mg OD p.o. CHRONIC MEDICAL ISSUES HLD: Atorvastatin 20 mg OD p.o. HTN: Continue lisinopril 5 mg p.o., metoprolol 25 mg b.i.d. QUALITY METRICS - VTE: Therapeutic enoxaparin 1 mg/kg after INR below 2 - CODE STATUS: DNR/DNI - DIET: Diabetic diet Total time managing care of this patient today: 35 minutes. Quality Stroke Does the patient have a stroke diagnosis?: No VTE Prior VTE?: No VTE Risk Level:: Medical - moderate - high VTE Device Contraindication: Patient Refused VTE Drug Contraindication: N/A - Med Ordered
[2025-02-17 15:28] VITALS: BP 96/88; PULSE 61; RESP 18; TEMP 36.5; O2SAT 94
[2025-02-17 15:59] LABS: Glucose, Whole Blood 197 mg/dL (60-115)
[2025-02-17] MEDS: OLANZapine 10 MG VIAL 5 MG IM (18:32)
[2025-02-17 20:10] VITALS: BP 93/58; PULSE 60; RESP 16; TEMP 36.7; O2SAT 94
[2025-02-17 21:13] LABS: Glucose, Whole Blood 171 mg/dL (60-115)
--- NOTE | 2025-02-17 21:55 | PC.NURSE ---
This RN assumed care of patient at 19:00. Upon arrival to shift patient was yelling in his room, very confused talking to people who weren't there. Patient eventually calmed down so an attempt was made to give him his medications but pt started to get annoyed and said he doesn't want anything. Reattempted to give medications an hour later and patient said no thank you then covered himself up with the blanket and closed his eyes.
[2025-02-17 23:41] VITALS: BP 110/63; PULSE 57; RESP 16; TEMP 36.1; O2SAT 94
[2025-02-18 07:11] VITALS: BP 109/57; PULSE 62; RESP 16; TEMP 36.4; O2SAT 93
[2025-02-18 07:56] LABS: Glucose, Whole Blood 109 mg/dL (60-115)
--- NOTE | 2025-02-18 09:02 | P.PNIM_ITS ---
Subjective Subjective Date of Service: 02/18/25 Interval History: Based on overnight RNs note and staff report this morning, (I am seeing the patient for the very 1st time today), I believe the patient has poorly controlled psychiatric issues. Patient medically optimized Care team consulted Psychiatry consulted Case management for complex discharge planning consulted This is likely a Akua cycle LTP Review of Systems Review of Systems: Yes all other systems are reviewed and are negative Physical Exam 2 Exam: Exam: General: A&O x0. Patient's and daughter at bedside Not oriented to person place time or situation. Agitated and irritable. Cardiac: Unable to auscultate given patient's baseline agitation and combativeness Respiratory: Limited given patient's baseline agitation and combativeness GI/ : Unable to perform given patient's baseline agitation and combativeness MSK: Unable to obtain examination Neurological: Unable to obtain examination. Pronounced startle reflex. Psychiatry: Persistent visual and auditory hallucinations. Very paranoid. Combative, yelling and screaming - verbal and physical abuse. Very short term memory loss. Vital Signs: Vital Signs: Last Vital Signs Temp 97.6 F 02/18/25 07:11 Pulse 62 02/18/25 07:11 Resp 16 02/18/25 07:11 BP 109/57 L 02/18/25 07:11 Pulse Ox 93 02/18/25 07:11 O2 Del Method Room Air 02/18/25 07:11 O2 Flow Rate 2 02/11/25 07:57 BMI result Body Mass Index 39.6 Objective Data Active Medications Acetaminophen (Acetaminophen 325 Mg Tablet) 975 mg PO DAILY PRN PRN Reason: Pain, Mild 1-3,fever,headache Atorvastatin Calcium (Atorvastatin Calcium 20 Mg Tablet) 20 mg PO DAILY@1930 [facility] Last Admin: 02/17/25 21:02 Dose: Not Given Documented By: JENNIE Non-Admin Reason: Patient Refused Calcium Carbonate (Calcium Carbonate 750 Mg Tab.Chew) 750 mg PO Q4H PRN PRN Reason: Heartburn Dextrose (Dextrose 50 % 25 Gm/50 Ml Syringe) 25 gm IVPUSH Q15M PRN; Protocol PRN Reason: per Hypoglycemia Standing Ord. Doxycycline Monohydrate (Doxycycline Monohydrate 100 Mg Capsule) 100 mg PO Q12H [facility] Last Admin: 02/18/25 05:27 Dose: 100 mg Documented By: JENNIE Enoxaparin Sodium (Enoxaparin Sodium 120 Mg/0.8 Ml Syringe) 120 mg SUBCUT Q12H [facility] On Hold: 02/12/25 16:16 Last Admin: 02/12/25 10:31 Dose: 120 mg Documented By: CRISTIANE Fluticasone/Vilanterol (Fluticasone/Vilanterol 100/25 Blst.W.Dev) 1 puff INHALE RDAILY [facility] Last Admin: 02/18/25 07:49 Dose: Not Given Documented By: JANETTE Non-Admin Reason: Patient Refused Glipizide (Glipizide Xl 5 Mg Tab.Er.24) 5 mg PO DAILY@0815 [facility] Last Admin: 02/17/25 08:17 Dose: 5 mg Documented By: ELISA Glucose (Glucose Gel 15 Gm Gel..Gram.) 15 gm PO Q15M PRN; Protocol PRN Reason: per Hypoglycemia Standing Ord. Insulin Glargine (Insulin Glargine,Hum.Rec.Anlog 100 Unit/Ml 10 Ml Vial) 10 unit SUBCUT DAILY PRN PRN Reason: HYPERGLYCEMIA Insulin Human Lispro (Insulin Lispro 100 Unit/Ml 3 Ml Vial) 0 unit SUBCUT QIDACHS [facility]; Protocol Last Admin: 02/18/25 08:57 Dose: Not Given Documented By: GUIDO Non-Admin Reason: No Insulin Coverage Lisinopril (Lisinopril 5 Mg Tablet) 5 mg PO DAILY [facility]; Protocol Last Admin: 02/17/25 08:15 Dose: 5 mg Documented By: ELISA Magnesium Hydroxide (Milk Of Magnesia 30 Ml Oral.Susp) 30 ml PO DAILY PRN PRN Reason: Constipation Melatonin (Melatonin 3 Mg Tablet) 6 mg PO BEDTIME PRN PRN Reason: Insomnia Last Admin: 02/12/25 20:05 Dose: 6 mg Documented By: JOVAN Metoprolol Tartrate (Metoprolol Tartrate 25 Mg Tablet) 25 mg PO BID [facility]; Protocol Last Admin: 02/17/25 21:50 Dose: Not Given Documented By: JENNIE Non-Admin Reason: Patient Refused Montelukast Sodium (Montelukast Sodium 10 Mg Tablet) 10 mg PO BEDTIME [facility] Last Admin: 02/17/25 21:50 Dose: Not Given Documented By: JENNIE Non-Admin Reason: Patient Refused Olanzapine (Olanzapine 10 Mg Vial) 5 mg IM ONCE PRN PRN Reason: agitation, combativeness Last Admin: 02/17/25 18:32 Dose: 5 mg Documented By: ELISA Prednisone (Prednisone 20 Mg Tablet) 40 mg PO DAILY [facility] Stop: 02/20/25 09:01 Last Admin: 02/17/25 08:15 Dose: 40 mg Documented By: ELISA Quetiapine Fumarate (Quetiapine Fumarate 25 Mg Tablet) 25 mg PO BID PRN PRN Reason: agitation Last Admin: 02/16/25 16:53 Dose: 25 mg Documented By: ELISA Quetiapine Fumarate (Quetiapine Fumarate 25 Mg Tablet) 12.5 mg PO BEDTIME [facility] Last Admin: 02/17/25 21:50 Dose: Not Given Documented By: JENNIE Non-Admin Reason: Patient Refused Rivastigmine Tartrate (Rivastigmine Tartrate 1.5 Mg Capsule) 1.5 mg PO BID [facility] Last Admin: 02/17/25 21:50 Dose: Not Given Documented By: JENNIE Non-Admin Reason: Patient Refused Sertraline HCl (Sertraline Hcl 50 Mg Tablet) 50 mg PO DAILY [facility] Last Admin: 02/17/25 08:15 Dose: 50 mg Documented By: ELISA Sodium Chloride (0.9 % Sodium Chloride Flush 3 Ml Syringe) 3 ml IVFLUSH QSHIFT [facility] Last Admin: 02/18/25 00:05 Dose: Not Given Documented By: JENNIE Non-Admin Reason: Patient Refused Warfarin Sodium (Warfarin Sodium 2.5 Mg Tablet) 2.5 mg PO MoWeFr@1800 [facility] Last Admin: 02/15/25 17:05 Dose: 2.5 mg Documented By: MARIANA Warfarin Sodium (Warfarin Sodium 5 Mg Tablet) 5 mg PO SuTuThSa@1800 [facility] Labs 02/17/25 05:43 02/17/25 05:43 Labs: Laboratory Results - last 24 hr 02/17/25 02/17/25 02/17/25 12:35 15:51 20:20 POC Glucose 254 H 197 H 171 H 02/18/25 07:15 POC Glucose 109 Assessment and Plan (1) Lewy body dementia with agitation: Status: Acute Plan Patient is a 74-year-old male, with a PMH of Lewy body dementia c/b agitation and visual hallucinations, COPD, T2 DM, mechanical AVR on warfarin (2-3), PPM placement, brought into hospital by family 02/06/2025 with increased agitation & hallucinations after medication change Risperdal b.i.d. to t.i.d.; bed hold in the ED pending [facility] placement; however he developed acute hypoxic respiratory failure likely in the setting of COPD exacerbation, which excess debated his agitation and combativeness and was admitted to floors. Medically optimized, however placement complicated given agitation and combativeness. Acute delirium - chronic - waxing waning Aggression and combativeness - waxing waning 2/2 chronic stable Visual and auditory hallucinations - chronic Lewy body dementia with behaviors - chronic Based on overnight RNs note and staff report this morning, (I am seeing the patient for the very 1st time today), I believe the patient has poorly controlled psychiatric issues. Patient medically optimized Care team consulted - will reaccess everyday Psychiatry consulted - no changes in meds Case management for complex discharge planning consulted - This is likely a Akua cycle LTP PLAN - Per Psych - discontinuation of risperidone and switch to quetiapine 25 mg q.h.s. and 25 mg b.i.d. p.r.n. for agitation - Continue rivastigmine 1.5 mg b.i.d. - continue sertraline 50 mg OD p.o. - Recommended avoidance of haloperidol and other 1st generation antipsychotics AHRF likely 2/2 AE COPD +- Acute bronchitis - resolved with IV abx , nebs , steroids 7 day course However rx highly challenging as pt not cooperative with Vital check, meds and difficult to redirect, difficul to place O2 NC - FAmily aware WIll cont to monitor Mechanical Aortic valve replacement on warfarin - non compliant given baseline PSych issues- family aware Patient has been refusing warfarin intermittently (documented) - therapeutic today INR 3 Goal INR 2-3 with mechanical AVR PLAN - Restart warfarin; 5mg SuTuThSa // 2.5mg MWF - Check INR daily T2 DM ISS DC home glipizide 5 mg OD p.o. - will manage with ISS PPI to prevent steroid induced ulcers HLD: Atorvastatin 20 mg OD p.o. HTN: Continue lisinopril 5 mg p.o., metoprolol 25 mg b.i.d. DVT px with WArfarin This note is constructed using voice recognition software. While every effort has been made to ensure accuracy, director of career resources errors may have been included. Total time managing care of this patient today: 35 minutes. Quality Stroke Does the patient have a stroke diagnosis?: No VTE Prior VTE?: No VTE Risk Level:: Medical - moderate - high VTE Device Contraindication: Patient Refused VTE Drug Contraindication: N/A - Med Ordered
[2025-02-18] MEDS: 0.9 % Sodium Chloride Flush 3 ML SYRINGE IVFLUSH ×3 (09:31→22:51)
--- NOTE | 2025-02-18 10:45 | MHC.CLN ---
NUTRITION DIET CHANGED TO DIABETIC 2000 KCALS. PO INTAKE VARIABLE, 25-75%. ADDING ENSURE TID TO PROMOTE NUTRITIONAL INTAKE. SUPPLEMENT PROVIDES 1050 KCAL, [address] TO FOLLOW UP WEEKLY.
[2025-02-18 11:53] LABS: Glucose, Whole Blood 107 mg/dL (60-115)
--- NOTE | 2025-02-18 12:24 | MHC.CARE ---
T/W met with Pt at bedside. At this time T/W does not feel that Pt meets the criteria for PHILIPPE IPLOC and will be referred to case management for placement of long term care administrator care. Hospitalist updated.
[2025-02-18 12:50] LABS: INTERNATIONAL NORM RATIO 3.0 (0.9-1.1); Prothrombin Time 34.4 SEC (10.9-12.4)
--- NOTE | 2025-02-18 12:57 | MHC.CM.PN ---
PT AWAITING LTC PLACEMENT, HOWEVER THERE ARE MANY BARRIERS TO BED OFFERS INCLUDING HIM NOT BEING PSYCHIATRICALLY STABILIZED AND FREQUENT BEHAVIORS. PT UNLIKELY TO DISCHARGE PRIOR TO APPROPRIATE PSYCHIATRIC CARE
--- NOTE | 2025-02-18 14:02 | MHC.CARE ---
Per hospitalist, Pt will now be PHILIPPE IPLOC level of care. Admissions team notified to start a state wide psychiatric bed search for Pt. Pt will be reevaluated by CARE team daily until a psychiatric placement is secured or disposition changes. Pt's Ana notified that Pt is now a PHILIPPE PSYCH bed search and will remain on the medical floor until placement is secured.
--- NOTE | 2025-02-18 14:32 | MHC.CM.PN ---
CM SPOKE WITH ISAEL WHO CONTINUES TO ADVOCATE FOR A PHILIPPE PSYCH PLACEMENT FOR PT. PER ISAEL, SHE HAS ALSO STARTED WORKING WITH [facility] FOR EVENTUAL AIR QUALITY TECHNICIAN PLAN FOR PT. CM WILL CONTINUE TO FOLLOW FOR ANY CHANGE TO DC PLAN/NEEDS.
[2025-02-18 15:15] VITALS: BP 120/68; PULSE 86; RESP 18; TEMP 36.2; O2SAT 93
[2025-02-18 16:11] LABS: Glucose, Whole Blood 102 mg/dL (60-115)
--- NOTE | 2025-02-18 18:17 | PC.NURSE ---
Attempted to get pt out of bed into chair earlier in shift per daughters request. At this time pt was confused per baseline and yelling at staff. During interaction pt was not easily redirectable and did not follow commands well. Daughter states that patient is like this at home. During interaction pt was pulling fist back as to strike at staff and attempting to kick staff. Staff was unable to get pt out of bed at this time due to safety concerns for pt and staff. Pt was repositioned in bed, all safety measures in place. Through out shift pt noted to be yelling and confused.
[2025-02-18 20:14] LABS: Glucose, Whole Blood 120 mg/dL (60-115)
--- NOTE | 2025-02-18 21:38 | PC.NURSE ---
This RN assumed care of pt at 19:00. Upon arrival patient was resting in bed calm with eyes closed. This RN and staff went to clean patient up because he soiled the bed and patient was trying to hit and kick. Also attempted to administer his medications and patient was yelling and cursing at staff to get out of his room.
[2025-02-18] MEDS: diazePAM 10 MG/2 ML CARTRIDGE 5 MG IVPUSH (22:24)
--- NOTE | 2025-02-18 22:29 | PC.NURSE ---
Patient was trying to get OOB but he is very unsteady on his feet and he would not let staff explain this to him. Patient was not following directions and arguing with staff. Yelling out for the police, being aggressive & verbally abusive. Dr. Howell notified and ordered stat IV Valium 5mg. Was able to administer the med with the help of 5 staff members. Security was called in the middle of this but by the time they arrived patient was already calm.
[2025-02-19] VITALS: RESP 14
[2025-02-19 07:40] LABS: Glucose, Whole Blood 106 mg/dL (60-115)
[2025-02-19 08:00] VITALS: BP 122/68; PULSE 60; RESP 18; TEMP 36; O2SAT 97
[2025-02-19 10:16] LABS: INTERNATIONAL NORM RATIO 3.1 (0.9-1.1); Prothrombin Time 35.2 SEC (10.9-12.4)
[2025-02-19 11:21] LABS: Glucose, Whole Blood 129 mg/dL (60-115)
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
[2025-02-19 16:01] LABS: Glucose, Whole Blood 136 mg/dL (60-115)
[2025-02-19 20:15] LABS: Glucose, Whole Blood 123 mg/dL (60-115)
[2025-02-19] MEDS: 0.9 % Sodium Chloride Flush 3 ML SYRINGE IVFLUSH (21:12)
--- NOTE | 2025-02-20 07:18 | HO.PM.IMPN ---
Subjective Subjective Date of Service: 02/20/25 Physical Exam Vital Signs: Vital Signs: Last Vital Signs Temp 96.8 F 02/19/25 08:00 Pulse 60 02/19/25 08:00 Resp 18 02/19/25 08:00 BP 122/68 02/19/25 08:00 Pulse Ox 97 02/19/25 08:00 O2 Del Method Room Air 02/19/25 08:00 O2 Flow Rate 2 02/11/25 07:57 BMI result Body Mass Index 39.6 Objective Data Active Medications Acetaminophen (Acetaminophen 325 Mg Tablet) 975 mg PO DAILY PRN PRN Reason: Pain, Mild 1-3,fever,headache Last Admin: 02/20/25 04:23 Dose: 975 mg Documented By: EPIFANIO Atorvastatin Calcium (Atorvastatin Calcium 20 Mg Tablet) 20 mg PO DAILY@1930 [facility] Last Admin: 02/19/25 16:43 Dose: Not Given Documented By: GEMMA Non-Admin Reason: Patient Refused Calcium Carbonate (Calcium Carbonate 750 Mg Tab.Chew) 750 mg PO Q4H PRN PRN Reason: Heartburn Dextrose (Dextrose 50 % 25 Gm/50 Ml Syringe) 25 gm IVPUSH Q15M PRN; Protocol PRN Reason: per Hypoglycemia Standing Ord. Doxycycline Monohydrate (Doxycycline Monohydrate 100 Mg Capsule) 100 mg PO Q12H [facility] Last Admin: 02/20/25 04:23 Dose: 100 mg Documented By: EPIFANIO Enoxaparin Sodium (Enoxaparin Sodium 120 Mg/0.8 Ml Syringe) 120 mg SUBCUT Q12H [facility] On Hold: 02/12/25 16:16 Last Admin: 02/12/25 10:31 Dose: 120 mg Documented By: CRISTIANE Fluticasone/Vilanterol (Fluticasone/Vilanterol 100/25 Blst.W.Dev) 1 puff INHALE RDAILY [facility] Last Admin: 02/19/25 07:47 Dose: Not Given Documented By: JANETTE Non-Admin Reason: pt unable to follow directions Glucose (Glucose Gel 15 Gm Gel..Gram.) 15 gm PO Q15M PRN; Protocol PRN Reason: per Hypoglycemia Standing Ord. Insulin Glargine (Insulin Glargine,Hum.Rec.Anlog 100 Unit/Ml 10 Ml Vial) 10 unit SUBCUT DAILY PRN PRN Reason: HYPERGLYCEMIA Insulin Human Lispro (Insulin Lispro 100 Unit/Ml 3 Ml Vial) 0 unit SUBCUT QIDACHS [facility]; Protocol Last Admin: 02/19/25 20:46 Dose: Not Given Documented By: EPIFANIO Non-Admin Reason: No Insulin Coverage Lisinopril (Lisinopril 5 Mg Tablet) 5 mg PO DAILY [facility]; Protocol Last Admin: 02/19/25 08:58 Dose: Not Given Documented By: GEMMA Non-Admin Reason: Patient Refused Magnesium Hydroxide (Milk Of Magnesia 30 Ml Oral.Susp) 30 ml PO DAILY PRN PRN Reason: Constipation Melatonin (Melatonin 3 Mg Tablet) 6 mg PO BEDTIME PRN PRN Reason: Insomnia Last Admin: 02/12/25 20:05 Dose: 6 mg Documented By: JOVAN Metoprolol Tartrate (Metoprolol Tartrate 25 Mg Tablet) 25 mg PO BID [facility]; Protocol Last Admin: 02/19/25 22:10 Dose: Not Given Documented By: EPIFANIO Non-Admin Reason: Patient Refused Montelukast Sodium (Montelukast Sodium 10 Mg Tablet) 10 mg PO BEDTIME [facility] Last Admin: 02/19/25 22:11 Dose: Not Given Documented By: EPIFANIO Non-Admin Reason: Patient Refused Olanzapine (Olanzapine 10 Mg Vial) 5 mg IM ONCE PRN PRN Reason: agitation, combativeness Last Admin: 02/17/25 18:32 Dose: 5 mg Documented By: ELISA Omeprazole (Omeprazole 20 Mg Coy.) 20 mg PO DAILY@0630 [facility] Last Admin: 02/20/25 07:02 Dose: Not Given Documented By: EPIFANIO Non-Admin Reason: Patient Asleep Prednisone (Prednisone 20 Mg Tablet) 40 mg PO DAILY [facility] Stop: 02/20/25 09:01 Last Admin: 02/19/25 08:58 Dose: Not Given Documented By: GEMMA Non-Admin Reason: Patient Refused Quetiapine Fumarate (Quetiapine Fumarate 25 Mg Tablet) 25 mg PO BID PRN PRN Reason: agitation Last Admin: 02/18/25 09:22 Dose: 25 mg Documented By: GUIDO Quetiapine Fumarate (Quetiapine Fumarate 25 Mg Tablet) 12.5 mg PO BEDTIME [facility] Last Admin: 02/19/25 21:09 Dose: 12.5 mg Documented By: EPIFANIO Rivastigmine Tartrate (Rivastigmine Tartrate 1.5 Mg Capsule) 1.5 mg PO BID [facility] Last Admin: 02/19/25 22:11 Dose: Not Given Documented By: EPIFANIO Non-Admin Reason: Patient Refused Sertraline HCl (Sertraline Hcl 50 Mg Tablet) 50 mg PO DAILY [facility] Last Admin: 02/19/25 08:58 Dose: Not Given Documented By: GEMMA Non-Admin Reason: Patient Refused Sodium Chloride (0.9 % Sodium Chloride Flush 3 Ml Syringe) 3 ml IVFLUSH QSHIFT [facility] Last Admin: 02/19/25 21:12 Dose: 3 ml Documented By: EPIFANIO Warfarin Sodium (Warfarin Sodium 2.5 Mg Tablet) 2.5 mg PO MoWeFr@1800 [facility] Last Admin: 02/18/25 17:35 Dose: 2.5 mg Documented By: GUIDO Warfarin Sodium (Warfarin Sodium 5 Mg Tablet) 5 mg PO SuTuThSa@1800 [facility] Last Admin: 02/19/25 17:53 Dose: 5 mg Documented By: GEMMA Labs 02/17/25 05:43 02/17/25 05:43 Labs: Laboratory Results - last 24 hr 02/19/25 02/19/25 02/19/25 07:36 08:49 11:16 PT 35.2 H INR 3.1 H POC Glucose 106 129 H 02/19/25 02/19/25 15:57 20:10 PT INR POC Glucose 136 H 123 H Quality Stroke Does the patient have a stroke diagnosis?: No VTE Prior VTE?: No VTE Risk Level:: Medical - moderate - high VTE Device Contraindication: Patient Refused VTE Drug Contraindication: N/A - Med Ordered
[2025-02-20 08:30] VITALS: BP 129/76; PULSE 60; RESP 18; TEMP 36.1; O2SAT 94
[2025-02-20 08:35] LABS: INTERNATIONAL NORM RATIO 3.1 (0.9-1.1); Prothrombin Time 36.6 SEC (11.2-13.5)
[2025-02-20 08:49] LABS: Glucose, Whole Blood 117 mg/dL (60-115)
[2025-02-20] MEDS: 0.9 % Sodium Chloride Flush 3 ML SYRINGE IVFLUSH (10:33)
--- NOTE | 2025-02-20 10:34 | PC.NURSE ---
at bedside, patient took pills one at a time whole with water. Patient listened to and easily took them with her help, patient did tire out on taking them and refused to take prednisone.
[2025-02-20 11:32] LABS: Glucose, Whole Blood 147 mg/dL (60-115)
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
--- NOTE | 2025-02-20 15:33 | PM.PSYCN ---
History of Present Illness Date of Service: 02/20/2025 Chief Complaint: Acute Hypoxic Resp Failure Acute Bronchitis Deliri Reason for Consult: LTC placement for lewy body dementia Requesting physician: Uma Mann Discussed with referring provider: Yes Sources of Information: patient interviewed and chart reviewed HPI Narrative: Per Hospitalist, Dr. Mann, patient has been medically cleared and awaiting placement for [facility] IPLOC. Patient has been doing well with current treatment regimen. Provider was told there is a bed available at [facility] between 5-7 p.m. today. He has been at baseline with some behavioral disturbances especially at night. This provider for the patient sitting on his bed. He is alert and oriented to self only. He is calm, cooperative, disorganized pleasantly confused. He notes that he feels good. He denies anxiety or depression. He denies SI/HI/AVH. 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 Supportive daughter Diagnostics Vital Signs (24Hr): Vital Signs - 24 hr 02/20/25 08:30 Temperature 96.9 F Pulse Rate 60 Respiratory Rate 18 Blood Pressure 129/76 Pulse Oximetry 94 Oxygen Delivery Method Room Air BMI result Body Mass Index 39.6 Labs 02/17/25 05:43 02/17/25 05:43 Labs: Laboratory Results - last 48 hr 02/18/25 02/18/25 02/19/25 16:08 20:05 07:36 Hold Purple Top PT INR POC Glucose 102 120 H 106 02/19/25 02/19/25 02/19/25 08:49 11:16 15:57 Hold Purple Top PT 35.2 H INR 3.1 H POC Glucose 129 H 136 H 02/19/25 02/20/25 02/20/25 20:10 08:12 08:35 Hold Purple Top SEE NOTE PT 36.6 H INR 3.1 H POC Glucose 123 H 117 H 02/20/25 11:27 Hold Purple Top PT INR POC Glucose 147 H Imaging Radiology Impressions: ITS Impressions Head CT 02/06/25 10:31 IMPRESSION: 1. No acute intracranial abnormality. 2. Stable chronic changes. Electronically signed by: Sundar Lee MD 02/06/2025 10:53 AM EDT RP Chest X-Ray 02/11/25 06:31 IMPRESSION: Borderline cardiomegaly. No acute cardiopulmonary abnormality. Electronically signed by: Irwin Cai MD 02/11/2025 08:11 AM EDT RP Chest CT 02/11/25 09:14 IMPRESSION: Bronchial wall thickening in the lower lobes, suggestive of bronchitis. No focal airspace opacity is identified. Electronically signed by: Irwin Cai MD 02/11/2025 09:45 AM EDT RP Mental Status Exam Mental Status Exam Narrative: Appearance: Casually dressed, adequate hygiene and grooming, mid section/perineal area covered with a hospital gown and rest of body is naked Behavior: Calm and cooperative throughout the interview. Eye contact is appropriate, some signs of psychomotor agitation present, and there are no signs of psychomotor retardation Speech: Normal volume and prosody, talkative Thought process: Tangential, disorganized and pleasantly confused Thought content: Disorganized, no self-harming thoughts Mood: Good Affect: Mood-congruent SI: Denies HI:Denies VH/AH: None Delusions: Non apparent Insight/judgment: Impaired insight and judgment Memory/cog: Alert and oriented only to self Medications Medications Current Medications Acetaminophen (Acetaminophen 325 Mg Tablet) 975 mg PO DAILY PRN PRN Reason: Pain, Mild 1-3,fever,headache Last Admin: 02/20/25 04:23 Dose: 975 mg Atorvastatin Calcium (Atorvastatin Calcium 20 Mg Tablet) 20 mg PO DAILY@1930 [facility] Last Admin: 02/19/25 16:43 Dose: Not Given Calcium Carbonate (Calcium Carbonate 750 Mg Tab.Chew) 750 mg PO Q4H PRN PRN Reason: Heartburn Dextrose (Dextrose 50 % 25 Gm/50 Ml Syringe) 25 gm IVPUSH Q15M PRN; Protocol PRN Reason: per Hypoglycemia Standing Ord. Doxycycline Monohydrate (Doxycycline Monohydrate 100 Mg Capsule) 100 mg PO Q12H [facility] Last Admin: 02/20/25 04:23 Dose: 100 mg Enoxaparin Sodium (Enoxaparin Sodium 120 Mg/0.8 Ml Syringe) 120 mg SUBCUT Q12H [facility] On Hold: 02/12/25 16:16 Last Admin: 02/12/25 10:31 Dose: 120 mg Fluticasone/Vilanterol (Fluticasone/Vilanterol 100/25 Blst.W.Dev) 1 puff INHALE RDAILY [facility] Last Admin: 02/20/25 07:57 Dose: Not Given Glucose (Glucose Gel 15 Gm Gel..Gram.) 15 gm PO Q15M PRN; Protocol PRN Reason: per Hypoglycemia Standing Ord. Insulin Glargine (Insulin Glargine,Hum.Rec.Anlog 100 Unit/Ml 10 Ml Vial) 10 unit SUBCUT DAILY PRN PRN Reason: HYPERGLYCEMIA Insulin Human Lispro (Insulin Lispro 100 Unit/Ml 3 Ml Vial) 0 unit SUBCUT QIDACHS [facility]; Protocol Last Admin: 02/20/25 11:36 Dose: Not Given Lisinopril (Lisinopril 5 Mg Tablet) 5 mg PO DAILY [facility]; Protocol Last Admin: 02/20/25 10:28 Dose: 5 mg Magnesium Hydroxide (Milk Of Magnesia 30 Ml Oral.Susp) 30 ml PO DAILY PRN PRN Reason: Constipation Melatonin (Melatonin 3 Mg Tablet) 6 mg PO BEDTIME PRN PRN Reason: Insomnia Last Admin: 02/12/25 20:05 Dose: 6 mg Metoprolol Tartrate (Metoprolol Tartrate 25 Mg Tablet) 25 mg PO BID [facility]; Protocol Last Admin: 02/20/25 10:29 Dose: 25 mg Montelukast Sodium (Montelukast Sodium 10 Mg Tablet) 10 mg PO BEDTIME [facility] Last Admin: 02/19/25 22:11 Dose: Not Given Olanzapine (Olanzapine 10 Mg Vial) 5 mg IM ONCE PRN PRN Reason: agitation, combativeness Last Admin: 02/17/25 18:32 Dose: 5 mg Omeprazole (Omeprazole 20 Mg Capsule.Dr) 20 mg PO DAILY@0630 [facility] Last Admin: 02/20/25 07:02 Dose: Not Given Quetiapine Fumarate (Quetiapine Fumarate 25 Mg Tablet) 25 mg PO BID PRN PRN Reason: agitation Last Admin: 02/18/25 09:22 Dose: 25 mg Quetiapine Fumarate (Quetiapine Fumarate 25 Mg Tablet) 12.5 mg PO BEDTIME [facility] Last Admin: 02/19/25 21:09 Dose: 12.5 mg Rivastigmine Tartrate (Rivastigmine Tartrate 1.5 Mg Capsule) 1.5 mg PO BID [facility] Last Admin: 02/20/25 10:27 Dose: 1.5 mg Sertraline HCl (Sertraline Hcl 50 Mg Tablet) 50 mg PO DAILY [facility] Last Admin: 02/20/25 10:26 Dose: 50 mg Sodium Chloride (0.9 % Sodium Chloride Flush 3 Ml Syringe) 3 ml IVFLUSH QSHIFT [facility] Last Admin: 02/20/25 10:33 Dose: 3 ml Warfarin Sodium (Warfarin Sodium 2.5 Mg Tablet) 2.5 mg PO MoWeFr@1800 [facility] Last Admin: 02/18/25 17:35 Dose: 2.5 mg Warfarin Sodium (Warfarin Sodium 5 Mg Tablet) 5 mg PO SuTuThSa@1800 [facility] Last Admin: 02/19/25 17:53 Dose: 5 mg Allergies Allergies Allergy/AdvReac Type Severity Reaction Status Date / Time metformin AdvReac Intermediate Stomach Verified 02/06/25 09:52 Upset Assessment & Plan Assessment & Plan (1) Dementia with Lewy bodies: Qualifiers: Dementia behavioral or psychological symptom: without behavioral, psychotic, or mood disturbance or anxiety Dementia severity: severe Qualified Code(s): G31.83 - Neurocognitive disorder with Lewy bodies; F02.C0 - Dementia in other diseases classified elsewhere, severe, without behavioral disturbance, psychotic disturbance, mood disturbance, and anxiety Status: Acute Code(s): G31.83 - Neurocognitive disorder with Lewy bodies; F02.80 - Dementia in other diseases classified elsewhere, unspecified severity, without behavioral disturbance, psychotic disturbance, mood disturbance, and anxiety Plan Per Hospitalist, Dr. Mann, patient has been medically cleared and awaiting placement for [facility]. Patient has been doing well with current treatment regimen. Provider was told there is a bed available at [facility] between 5-7 p.m. today. He has been at baseline with some behavioral disturbances especially at night. This provider patient found sitting on his bed. He is alert and oriented to self. He is calm, cooperative, disorganized and pleasantly confused. He notes that he feels good. He denies anxiety or depression. He denies SI/HI/AVH. Plan/Recommendations: Awaiting [facility] IPLOC. Continue current treatment regimen. Total time managing care of this patient today ____ minutes. Patient educated on: therapeutic strategies
[2025-02-20 16:25] LABS: Glucose, Whole Blood 154 mg/dL (60-115)
--- NOTE | 2025-02-20 17:39 | PC.NURSE ---
Patient confused, pill placed in medicine cup and patient self took pull with water. Patient did well with clear cups because he could recognize medication and water.
--- NOTE | 2025-02-20 18:02 | PC.NURSE ---
Patient unable to follow directions to put on clothes, required multiple assistance from nursing staff to put clothes on. With security at bedside [facility] with multiple staff assistance. Patient shouting out and reporting I can't breathe , 94% on room air. Patient wheeled off unit with charge nurse Maggi Rodriges and security.
== END 2025-02-20 17:44 | disposition other institution (70) | DRG 190 ==
LOC: HO.ED 02-11 10:02 → HO.EDOVER 02-11 10:47 → HO.S3 02-11 11:19
PROVIDERS: Emergency Medicine; Nurse Practitioner Family; Admitting Provider Hospitalist; Emergency Provider Emergency Medicine; PCP Physician Assistant Medical; Visit Provider Student in an Organized Health Care Education/Training Program
DX: J44.0 Chronic obstructive pulmonary disease with (acute) lower respiratory infection (principal); J96.21 Acute and chronic respiratory failure with hypoxia; F02.811 Dementia in other diseases classified elsewhere, unspecified severity, with agitation; F05 Delirium due to known physiological condition; J44.1 Chronic obstructive pulmonary disease with (acute) exacerbation; E11.9 Type 2 diabetes mellitus without complications; J20.9 Acute bronchitis, unspecified; G31.83 Neurocognitive disorder with Lewy bodies; E78.5 Hyperlipidemia, unspecified; I10 Essential (primary) hypertension; Z66 Do not resuscitate; L03.032 Cellulitis of left toe; R79.1 Abnormal coagulation profile; Z20.822 Contact with and (suspected) exposure to COVID-19; Z95.2 Presence of prosthetic heart valve; Z95.0 Presence of cardiac pacemaker; Z87.891 Personal history of nicotine dependence; Z91.199 Patient's noncompliance with other medical treatment and regimen due to unspecified reason; Z79.01 Long term (current) use of anticoagulants; Z79.51 Long term (current) use of inhaled steroids; Z79.84 Long term (current) use of oral hypoglycemic drugs; Z79.899 Other long term (current) drug therapy
CPT/HCPCS: 36415; 70450; 71045; 71250; 80048; 80076; 80307; 81003; 82607; 82746; 82947; 83540; 83690; 83735; 83880; 84443; 84484; 85025; 85610; 85730; 87633; 87635; 93005; 99285; J1271; J1650; J2359; J2919; J3360; S9485

== ENCOUNTER → 2025-02-06 09:50 | Outpatient (BNV) | payer MEDICARE, SELFPAY | PROVIDERS: Emergency Provider Emergency Medicine; PCP Physician Assistant Medical; Visit Provider Internal Medicine Cardiovascular Disease | DX: R94.31 Abnormal electrocardiogram [ECG] [EKG] (principal); Z95.0 Presence of cardiac pacemaker | CPT/HCPCS: 93010 ==

== ENCOUNTER → 2025-02-06 10:11 | Outpatient (BNV) | payer MEDICARE, SELFPAY | PROVIDERS: Emergency Provider Emergency Medicine; PCP Physician Assistant Medical; Visit Provider Nurse Practitioner Family | DX: G31.83 Neurocognitive disorder with Lewy bodies (principal); F02.C0 Dementia in other diseases classified elsewhere, severe, without behavioral disturbance, psychotic disturbance, mood disturbance, and anxiety | CPT/HCPCS: 99283 ==

== ENCOUNTER → 2025-02-06 10:23 | Outpatient (BNV) | payer MEDICARE, SELFPAY | PROVIDERS: Emergency Provider Emergency Medicine; PCP Physician Assistant Medical; Visit Provider Radiology Diagnostic Radiology | DX: R41.82 Altered mental status, unspecified (principal) | CPT/HCPCS: 70450 ==

== ENCOUNTER → 2025-02-11 06:31 | Outpatient (BNV) | payer MEDICARE, SELFPAY | PROVIDERS: Emergency Provider Emergency Medicine; PCP Physician Assistant Medical; Visit Provider Radiology Diagnostic Radiology | DX: R09.02 Hypoxemia (principal); R05.9 Cough, unspecified; I51.7 Cardiomegaly | CPT/HCPCS: 71045; 71250 ==

== ENCOUNTER → 2025-02-11 07:40 | Outpatient (BNV) | payer MEDICARE, SELFPAY | PROVIDERS: Admitting Provider Hospitalist; Emergency Provider Emergency Medicine; PCP Physician Assistant Medical; Visit Provider Internal Medicine | DX: R94.31 Abnormal electrocardiogram [ECG] [EKG] (principal); Z95.0 Presence of cardiac pacemaker | CPT/HCPCS: 93010 ==

== ENCOUNTER → 2025-02-11 10:39 | Outpatient (BNV) | payer MEDICARE, SELFPAY | PROVIDERS: Admitting Provider Hospitalist; Emergency Provider Emergency Medicine; PCP Physician Assistant Medical; Visit Provider Hospitalist | DX: G31.83 Neurocognitive disorder with Lewy bodies (principal); F02.C11 Dementia in other diseases classified elsewhere, severe, with agitation | CPT/HCPCS: 99232; 99239 ==

== ENCOUNTER 2025-02-20 18:12 | Inpatient (IN) | payer MEDICARE, SELFPAY ==
[2025-02-20] MEDS: OLANZapine ODT 10 MG TAB.RAPDIS TRANSLINGU (18:42)
--- NOTE | 2025-02-20 18:58 | PC.NURSE ---
Manuel is a 74 yr old male with lewy body dementia with aggressive behaviors, presented to the ER on 02/06 due to respiratory symptoms and was admitted medically for that. He came in with agitation and hallucinations after his medication was changed from bid risperidone to TID. He has T2 diabetes COPD and an aortic valve replacement and is on Coumadin regularly. He was treated on the medical unit for Eosinophilic asthma, on 02/11 he had a cardiac pacemaker. He has extremely challenging to treat. Upon arrival to the unit he was escorted with 2 security 2 nurses and he was screaming police along with other profanities. After transfer to the bed he continued to yell and scream talking to the police and others who were not in the room. He was combative and aggressive while during transport he acquired a [facility]. Given a dose of Zydis 10 mg orally.
--- OUTSIDE RECORDS SUMMARY | 2025-02-20 19:15 | XMS_ITS | Clinical Summary ---
Author Organization [facility] Address [address] [address] Phone Care Team Providers Care Dental Scheduler Name Role Phone Oscar Cruz MD Primary [...] file Insurance MEDICARE PART A & B [employer] MEDICARE SUPPLEMENT MEDICARE PART A & B MEDICARE SUPPLEMENT MEDICARE PART A & B MEDICARE PART A & B MEDICARE PART A & [place] [address] [place] [address] MEDICARE SUPPLEMENT MEDICARE PART A & B Member Subscriber Plan / Payer (Ef fective 2007-Present) Name:Manuel Vasquez Member ID:[id number] Relation to Subscriber:Self Name:Manuel Vasquez Subscriber ID:[id number] Payer ID:[id number] Group ID:Not on file Type:Medicare Address: [employer] [id number] MEDICARE PART A & B MEDICARE SUPPLEMENT MEDICARE PART A & B [employer] MEDICARE SUPPLEMENT MEDICARE PART A & B [employer] MEDICARE SUPPLEMENT Care Teams Dental Scheduler Relationship Specialty Start Date End Date Oscar Cruz MD [address] [place] [address] [id number] PCP - General Internal Medicine 08/06/24 Additional Source Comments The information contained in this document represents components of the legal health record. It is not the complete legal health record.[facility]
--- OUTSIDE RECORDS SUMMARY | 2025-02-20 19:15 | XMS_ITS | Patient Health Record ---
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 Designer Name Role Phone Bonnie (RETIRED) Jaden [...] Risk Notes Problem Screening for colon cancer (715470463) Screening for colon cancer (V76.51) Active confirmed Problem Long-term current use of anticoagulant ([id number]) Long-term (current) use of anticoagulants (V58.61) Active confirmed Plan Of Treatment Future Test Test Name Order Date COLONOSCOPY 10/30/2014 Insurance Providers Payer Name Payer Address Payer Phone Subscriber Number Group Number Insured Name Patient Relationship to Insured Coverage Start Date Coverage End Date [place] [address] [place] [address] [id number] SHAMEKA MCCRAY Self - patient is the insured [facility] [address] [place] [address] [id number] Self - patient is the insured Medical (General) History Medical History History ICD Code 02/08/2004 colonoscopoy hypertension elevated blood sugar aortic stenosis sleep apnea Surgical History Surgery Date(Month/Year) umbilical hernia repair aortic valve replacement, [facility] valve October 2004 coronary artery bypass open heart surgery cardiac pacemeker 2011
[2025-02-20 20:00] VITALS: BP 187/94; PULSE 60; RESP 20; TEMP 36.5; O2SAT 97
[2025-02-20 21:16] LABS: Glucose, Whole Blood 136 mg/dL (60-115)
--- NOTE | 2025-02-20 22:03 | HO.PSYADMNOT ---
HPI Date of Service: 02/20/25 Chief Complaint: dementia with disturbed behaviors Sources of Information: patient interviewed, chart reviewed and crisis/core team assessment reviewed HPI Subjective Notes: Section 12B Narrative: Per discharge note from provider on medical floor: Patient is a 74-year-old male, with a PMH of Lewy body dementia c/b agitation and visual hallucinations, COPD, T2 DM, mechanical AVR on warfarin (2-3), PPM placement, brought into hospital by family 02/06/2025 with increased agitation & hallucinations after medication change Risperdal b.i.d. to t.i.d.; bed hold in the ED pending [facility] placement; however he developed acute hypoxic respiratory failure likely in the setting of COPD exacerbation, which excess debated his agitation and combativeness and was admitted to floors. Medically optimized, however placement complicated given agitation and combativeness, he had multiple dose adjustments primarily being discontinuation of risperidone and switching to quetiapine 25 mg q.h.s. and 25 mg b.i.d. p.r.n. for agitation. His home meds-rivastigmine and sertraline have been continued. However he also needed IM Zyprexa occasionally at night. Behaviors and care challenging in the setting of baseline medical psychiatric conditions. Family aware. Care team consulted-patient is transferred to [facility] for further medical management. Patient has been seen by psychiatric provider team a couple of times the past week or two, has some medication changes to manage challenging behaviors. Patient is medically clear and found to be appropriate for [facility] psychiatric admission. This provider approached patient in assigned room where he is with the sitter upon brought down to [facility], patient is not cooperative, irritable, self dialogue and talking in a very loud voice, angry tone. Patient is not able to tell this provider where he is. He says his Month and year of is April 1946 and his is 55 y.o and that she is probably at home now when asked where his is. He is loudly saying help and there is robbery in [place] . Patient randomly says things that not appropriate to question content. Speech is clear but does not make sence regarding content being address. Observed some bruises on his arms which could be from blood drawn or IM medication administered as per record patient here and there received IM Zyprexa for combative behavior, especially at night. Per nursing, patient was screaming loudly during transferring process from medication floor to [facility]. PRN Zyprexa ODT 10mg offered after settle down to room with some effects. Patient placed on 1-1 for safety. Per record, patient intermittently refused medication include Coumadin and lab work. Will continue Coumadin with lab work daily in the morning. Would have hospitalist to see patient and determine if patient should be on Lovenox or Coumadin if patient continue refusing Coumadin. Not able to obtain HPI from patient. Patient has no capacity making decisions. Will remain on section 12B. Treatment team would reach out to family for collateral information. Patient is Alert and awake to self only, do not know full of his . Do not know current M/D/Y. Do not know where he is. Wearing hospital attire but not cover from shoulder up while in bed. Speech is clear and loud but do not make sense to content being asked. Mood is irritable, agitated. Thought process is confused and disorganized. Appear responding to internal stimuli, self dialogue loudly. Do no express AVH/SI/SIB. Impaired judgment and insight. Past Psychiatric History: Not able to obtain. Her record, patient has dementia with Lewy Bodies. Recently medication changes on Risperidone made his behaviors worse. 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 Social History: lives at home with . Supportive daughter Substance History: Not able to obtain d/t current clinical presentation. Trauma History: Not able to obtain d/t current clinical presentation. Diagnostics Labs 02/21/25 07:38 Labs: Laboratory Results - last 48 hr 02/20/25 21:08 POC Glucose 136 H Meds/Allergies Meds Home Medications ?Medication ?Instructions ?Recorded ?Confirmed ?Type atorvastatin 20 mg tablet 20 mg PO DAILY@1930 02/20/20 02/20/25 History acetaminophen 500 mg tablet 1,000 mg PO DAILY PRN Pain 09/16/23 02/20/25 History fluticasone 250 mcg-salmeterol 50 1 ea inhalation DAILY for asthma 01/20/25 02/20/25 History mcg/dose blistr powdr for inhalation (Wixela Inhub) insulin glargine 100 unit/mL (3 10 unit subcut DAILY PRN 01/20/25 02/20/25 History mL) subcutaneous pen (Basaglar Hyperglycemia KwikPen U-100 Insulin) lisinopril 5 mg tablet 5 mg PO QAM 01/20/25 02/20/25 History warfarin 5 mg tablet 5 mg PO SUTUTHSA 01/20/25 02/20/25 History warfarin 2.5 mg tablet 2.5 mg PO MOWEFR 02/06/25 02/20/25 History Allergies Allergies Allergy/AdvReac Type Severity Reaction Status Date / Time metformin AdvReac Intermediate Stomach Verified 02/06/25 09:52 Upset Mental Status Exam Mental Status Exam Narrative: Patient is Alert and awake to self only, do not know full of his . Do not know current M/D/Y. Do not know where he is. Wearing hospital attire but not cover from shoulder up while in bed. Speech is clear and loud but do not make sense to content being asked. Mood is irritable, agitated. Thought process is confused and disorganized. Appear responding to internal stimuli, self dialogue loudly. Do no express AVH/SI/SIB. Impaired judgment and insight. Assessment & Plan Assessment & Plan (1) Lewy body dementia with agitation: Status: Acute Qualifiers: Dementia severity: severe Qualified Code(s): G31.83 - Neurocognitive disorder with Lewy bodies; F02.C11 - Dementia in other diseases classified elsewhere, severe, with agitation Code(s): G31.83 - Neurocognitive disorder with Lewy bodies; F02.811 - Dementia in other diseases classified elsewhere, unspecified severity, with agitation (2) Aortic valve replaced: Status: Acute Code(s): Z95.2 - Presence of prosthetic heart valve (3) Diabetes type 2: Status: Acute Qualifiers: Diabetes mellitus complication status: with other specified complication 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: without long-term use Qualified Code(s): E11.69 - Type 2 diabetes mellitus with other specified complication Code(s): E11.9 - Type 2 diabetes mellitus without complications (4) COPD (chronic obstructive pulmonary disease): Status: Acute Qualifiers: COPD type: unspecified COPD Qualified Code(s): J44.9 - Chronic obstructive pulmonary disease, unspecified Code(s): J44.9 - Chronic obstructive pulmonary disease, unspecified (5) Acute bronchitis: Status: Acute Qualifiers: Bronchitis organism: unspecified organism Qualified Code(s): J20.9 - Acute bronchitis, unspecified Code(s): J20.9 - Acute bronchitis, unspecified Plan HPI: Patient is a 74-year-old male, with a PMH of Lewy body dementia c/b agitation and visual hallucinations, COPD, T2 DM, mechanical AVR on warfarin (2-3), PPM placement, brought into hospital by family 02/06/2025 with increased agitation & hallucinations after medication change Risperdal b.i.d. to t.i.d.; bed hold in the ED pending [facility] placement; however he developed acute hypoxic respiratory failure likely in the setting of COPD exacerbation, which excess debated his agitation and combativeness and was admitted to floors. Medically optimized, however placement complicated given agitation and combativeness, he had multiple dose adjustments primarily being discontinuation of risperidone and switching to quetiapine 25 mg q.h.s. and 25 mg b.i.d. p.r.n. for agitation. His home meds-rivastigmine and sertraline have been continued. However he also needed IM Zyprexa occasionally at night. Behaviors and care challenging in the setting of baseline medical psychiatric conditions. Family aware. Care team consulted-patient is transferred to [facility] for further medical management. Formulation/clinical reasoning: history of dementia who has had increasing behavioral difficulties at home. His family does not feel that they can manage him at home, a trial of different medications recently and the family is concerned that the patient has deterioration might be related to these medications. Patient would benefit in restrictive and structure environment for own safety, medication adjustment and refer to OP psychiatric services as well for aftercare. As now we are not sure if patient should return home with family once stable or should place on LTC facility for advance dementia. Hospital course: 02/20/25: Per provider on medical floor: Patient is on warfarin. He has a mechanical aortic valve so that his INR should be between 2.5 and 3.5. PT/INR on 11/05: 36.6/3.1. BUN 49 on 02/17. Lytes are WNL. U/A unremarkable. EKG: Elevated Qt/QTc. Will order repeat EKG. Pending result. Seroquel 25mg at HS. Seroquel 25mg BID PRN for agitation Zyprexa ODT 10mg BID PRN for severe agitation/psychosis Continue with rivastigmine 1.5 BID and sertraline 50mg daily as home medication. Atorvastatin 20mg daily at HS Glipizide 5mg daily Diabetic protool with insulin coverage QID. Coumadin 2.5 M/W/F Coumadin 5mg Sun/Tues/Lily/Sat Plan Patient on 1-1 minute checks for safety. Admitted to S1. Section 12B: no capacity. Work with treatment team to do collateral family/ OP providers/treaters. Contact the hospitalist regarding hospitalist consultation on admission: pending. PT/INR level daily. Patient educated on: diagnosis, medication risk/benefits, therapeutic strategies and medical condition Informed Consent: further education needed Reason for continued inpatient stay Substantial Risk for: inability to function and med/psych decompensation Statement Statement: I have reviewed the history and physical and performed a pertinent examination on my patient. No changes have occurred unless specified. If the History and Physical was not performed prior to admission, the Hospitalist's service will be consulted for completing the admission physical. Time Spent With Patient Time: Total time managing care of this patient today ____ minutes.
[2025-02-20 23:02] VITALS: BP 187/94; PULSE 60
[2025-02-20 23:50] VITALS: BMI 20.9
[2025-02-21 07:17] LABS: Glucose, Whole Blood 112 mg/dL (60-115)
[2025-02-21 07:55] LABS: INTERNATIONAL NORM RATIO 4.3 (0.9-1.1); Prothrombin Time 50.8 SEC (11.2-13.5)
[2025-02-21 08:00] VITALS: BP 104/70; PULSE 77; RESP 16; TEMP 36.4; O2SAT 94
[2025-02-21 08:12] LABS: Alanine Aminotransferase 35 U/L (0-40); Albumin Level 3.8 g/dL (3.5-5.0); Alkaline Phosphatase 103 U/L (39-117); Anion Gap 13 (12-20); Aspartate Amino Transferase 33 U/L (5-37); Blood Urea Nitrogen 52 mg/dL (9-16); Calcium 9.0 mg/dL (8.4-10.2); Carbon Dioxide 23 mmol/L (22-29); Chloride 110 mmol/L (96-108); Cholesterol 104 mg/dL (<200); Creatinine Clr Calc Pharmacy 47.2; Estimated Glomerular Filt Rate 55; HDL Cholesterol 29 mg/dL (>40); Potassium 4.4 mmol/L (3.3-5.1); Sodium 142 mmol/L (135-145); Total Protein 6.5 g/dL (6.5-8.0); Triglycerides 87 mg/dL (<150)
[2025-02-21 08:27] LABS: Free T4 (Free Thyroxine) 1.23 ng/dL (0.71-1.85); Thyroid Stimulating Hormone 1.08 uIU/mL (0.32-4.0)
--- NOTE | 2025-02-21 08:43 | HO.PM.IMCN ---
History of Present Illness Data of Consult Service Date: 02/21/25 Primary Care Provider: Unknown Physician HPI Reason for consult: Medical consult 74-year-old male with a past medical history COPD-asthma overlap syndrome, obesity, diabetes, Lewy body dementia, secondary parkinsonism, venous stasis changes bilateral lower legs, cerebral microvascular disease, cerebral atrophy hyperlipidemia, history of AVR replacement on warfarin, and permanent pacemaker presented to the emergency room on 02/06/2025 with increased aggression, visual hallucinations and agitation. Prior to admit patient a med change of Risperdal from twice a day to 3 times a day and family reported that behavioral changes started after that. On 02/11 patient was hypoxic and transferred to the medical floor for further care. Patient was a poor historian on admit and combative with staff with paranoid behaviors. His hospital course included a Head CT on February 06 that demonstrated no acute intracranial abnormalities and stable chronic changes. He had a chest x-ray on February 11 that showed borderline cardiomegaly and no acute cardiopulmonary abnormality. Subsequently had a follow up chest CT that demonstrated bronchitis. Patient's behaviors continued throughout hospitalization including hallucinations, combative behavior, agitation. Patient was determined to be medically stable, now admitted to inpatient [facility] for care and treatment. On exam he is alert, answers some questions however is easily angered and agitated. Review of Systems Review of Systems: Patient reports that he has leg pain, otherwise no physical complaints, denies shortness of breath or chest pain. Denies abdominal pain PMFSH Medical History Parkinsonism, secondary Dementia with Lewy bodies Cerebral microvascular disease Cerebral atrophy Dementia Morbid obesity Cough Asthma-COPD overlap syndrome Steroid dependence COPD (chronic obstructive pulmonary disease) Eosinophilic asthma Family History Mother No problems noted. Father No problems noted. Surgical History S/P cardiac pacemaker procedure Social History Household Members: Spouse Housing: House Do you presently have visiting nurse or other home services: No Patient Tobacco Use Status: Former Tobacco user Tobacco use type: Cigarette Smoked in Last 30 Days: No e-Cigarette/Vaping Use: Former Use Patient Interested in Nicotine Replacement: No Patient Given Instructions on How to Stop Smoking: No Second Hand Smoke Exposure: No Currently Displaying Signs/Symptoms of Drug Intoxication Withdrawal: No Spiritual Healthcare Practices: patient unable to participate d/t lewy body dementia [facility] Practices: patient unable to participate d/t lewy body dementia Cultural Healthcare Practices: patient unable to participate d/t lewy body dementia Advance Directives: No Advance Directives Information Provided: Yes Do you have thoughts of harming others: None Do you have a plan to hurt others: No Plan Recently lost weight without trying: Unsure Eating poorly because of decreased appetite: No Nutrition Risks: No Nutritional Risk Poor oral hygiene: No service: No Current occupational status: retired Current occupational exposures/hazards: No Cognitive needs: Yes (cane) Hearing needs: No Vision needs: Yes (rx galsses) Meds Allergies Allergy/AdvReac Type Severity Reaction Status Date / Time metformin AdvReac Intermediate Stomach Verified 02/06/25 09:52 Upset Active Medications: Current Medications Acetaminophen (Acetaminophen 325 Mg Tablet) 650 mg PO Q6H PRN PRN Reason: Headache/Pain, Scale 1-10 Al Hydroxide/Mg Hydroxide (Magnesium Hydrox/Alum Hydrox 30 Ml Oral.Susp) 30 ml PO Q6H PRN PRN Reason: Heartburn/Nausea Atorvastatin Calcium (Atorvastatin Calcium 20 Mg Tablet) 20 mg PO DAILY@1930 [facility] Last Admin: 02/20/25 23:03 Dose: 20 mg Doxycycline Monohydrate (Doxycycline Monohydrate 100 Mg Capsule) 100 mg PO Q12H [facility] Last Admin: 02/20/25 23:04 Dose: 100 mg Fluticasone/Vilanterol (Fluticasone/Vilanterol 100/25 Blst.W.Dev) 1 puff INHALE RDAILY [facility] Glipizide (Glipizide Xl 5 Mg Tab.Er.24) 5 mg PO DAILY@0815 [facility] Last Admin: 02/21/25 08:29 Dose: 5 mg Hydroxyzine HCl (Hydroxyzine Hcl 25 Mg Tablet) 25 mg PO Q6H PRN PRN Reason: mild anxiety Last Admin: 02/20/25 23:06 Dose: 25 mg Insulin Glargine (Insulin Glargine,Hum.Rec.Anlog 100 Unit/Ml 10 Ml Vial) 10 unit SUBCUT DAILY PRN PRN Reason: Hyperglycemia Insulin Human Lispro (Insulin Lispro 100 Unit/Ml 3 Ml Vial) 0 unit SUBCUT QIDACHS [facility]; Protocol Last Admin: 02/21/25 08:29 Dose: Not Given Lisinopril (Lisinopril 5 Mg Tablet) 5 mg PO DAILY [facility]; Protocol Last Admin: 02/21/25 08:22 Dose: 5 mg Magnesium Hydroxide (Milk Of Magnesia 30 Ml Oral.Susp) 30 ml PO DAILY PRN PRN Reason: Constipation Melatonin (Melatonin 3 Mg Tablet) 6 mg PO BEDTIME [facility] Last Admin: 02/20/25 23:03 Dose: 6 mg Metoprolol Tartrate (Metoprolol Tartrate 25 Mg Tablet) 25 mg PO BID [facility]; Protocol Last Admin: 02/21/25 08:22 Dose: 25 mg Montelukast Sodium (Montelukast Sodium 10 Mg Tablet) 10 mg PO BEDTIME [facility] Nicotine Polacrilex (Nicotine Polacrilex 2 Mg Gum) 2 mg BUCCAL Q2H PRN PRN Reason: Nicotine Cravings Olanzapine (Olanzapine Odt 10 Mg Tab.Rapdis) 10 mg TRANSLINGU BID PRN PRN Reason: severe agitation/psychosis Last Admin: 02/20/25 18:42 Dose: 10 mg Omeprazole (Omeprazole 20 Mg Capsule.Dr) 20 mg PO DAILY@0630 [facility] Quetiapine Fumarate (Quetiapine Fumarate 25 Mg Tablet) 25 mg PO BID PRN PRN Reason: agitation Last Admin: 02/20/25 23:04 Dose: 25 mg Quetiapine Fumarate (Quetiapine Fumarate 25 Mg Tablet) 12.5 mg PO BEDTIME [facility] Last Admin: 02/20/25 23:03 Dose: 12.5 mg Rivastigmine Tartrate (Rivastigmine Tartrate 1.5 Mg Capsule) 1.5 mg PO BID [facility] Last Admin: 02/21/25 08:22 Dose: 1.5 mg Sertraline HCl (Sertraline Hcl 50 Mg Tablet) 50 mg PO DAILY [facility] Last Admin: 02/21/25 08:22 Dose: 50 mg Trazodone HCl (Trazodone Hcl 50 Mg Tablet) 50 mg PO BEDTIME MRX1 PRN PRN Reason: Insomnia Last Admin: 02/20/25 23:04 Dose: 50 mg Warfarin Sodium (Warfarin Sodium 2.5 Mg Tablet) 2.5 mg PO MoWeFr@1800 [facility] Warfarin Sodium (Warfarin Sodium 5 Mg Tablet) 5 mg PO SuTuThSa@1800 [facility] Home Medications ?Medication ?Instructions ?Recorded ?Confirmed ?Last Taken ?Type atorvastatin 20 mg tablet 20 mg PO DAILY@1930 02/20/20 02/20/25 02/05/25 History acetaminophen 500 mg tablet 1,000 mg PO DAILY PRN Pain 09/16/23 02/20/25 01/18/25 History 1000 mg fluticasone 250 mcg-salmeterol 50 1 ea inhalation DAILY for asthma 01/20/25 02/20/25 02/05/25 History mcg/dose blistr powdr for inhalation (Wixela Inhub) insulin glargine 100 unit/mL (3 10 unit subcut DAILY PRN 01/20/25 02/20/25 Unknown History mL) subcutaneous pen (Basaglar Hyperglycemia KwikPen U-100 Insulin) lisinopril 5 mg tablet 5 mg PO QAM 01/20/25 02/20/25 02/05/25 History warfarin 5 mg tablet 5 mg PO SUTUTHSA 01/20/25 02/20/25 02/05/25 History warfarin 2.5 mg tablet 2.5 mg PO MOWEFR 02/06/25 02/20/25 02/04/25 History Physical Exam Vital Signs and Narrative: Vital Signs: Last Vital Signs Temp 97.7 F 02/20/25 20:00 Pulse 60 02/20/25 23:02 Resp 20 02/20/25 20:00 BP 187/94 H 02/20/25 23:02 Pulse Ox 97 02/20/25 20:00 O2 Del Method Room Air 02/20/25 20:00 BMI result Body Mass Index 20.9 CONST: Alert and oriented, in NAD. Well nourished. Eyes closed, talking nonsensical HEENT: Normocephalic, atraumatic RESP: Respiratory rate even and regular. Lung sounds clear HEART: Heart rate regular rate and rhythm GI: Abdomen is soft, nontender positive bowel sounds x4 : Decline SKIN: Bilateral lower legs with venous stasis changes, left elbow with intact dressing, right hand with intact dressing NEURO: Moves all extremities, Speech clear PSYCH: Answers some questions Results Labs 02/21/25 07:38 Labs: Laboratory Results - last 24 hr 02/20/25 02/21/25 02/21/25 21:08 07:13 07:38 PT 50.8 H D INR 4.3 H Anion Gap 13 Estim Creat Clear Calc 47.2 Estimated GFR 55 POC Glucose 136 H 112 Random Glucose 114 Estimat Average Glucose 134 Hemoglobin A1c % 6.3 H Calcium 9.0 Total Bilirubin 1.0 AST 33 ALT 35 Alkaline Phosphatase 103 Total Protein 6.5 Albumin 3.8 Triglycerides 87 Cholesterol 104 LDL Cholesterol, Calc 58 HDL Cholesterol 29 L TSH 1.08 Free T4 1.23 Assessment and Plan (1) Diabetes type 2: Qualifiers: Diabetes mellitus contract negotiator insulin use: without contract negotiator use Diabetes mellitus complication status: with other specified complication Qualified Code(s): E11.69 - Type 2 diabetes mellitus with other specified complication Status: Acute Plan Patient is a 74-year-old male, with a PMH of Lewy body dementia c/b agitation and visual hallucinations, COPD, T2 DM, mechanical AVR on warfarin (2-3), PPM placement, brought into hospital by family 02/06/2025 with increased agitation & hallucinations after medication change Risperdal b.i.d. to t.i.d.; bed hold in the ED pending [facility] placement; however he developed acute hypoxic respiratory failure likely in the setting of COPD exacerbation, which excess debated his agitation and combativeness and was admitted to medical floor. Medically cleared and now admitted to inpatient psych for further care and treatment. Lewy body dementia with agitation and aggression Treatment per psychiatric team Acute hypoxic respiratory failure likely related to COPD and acute bronchitis Treated with IV antibiotics, nebulizers, and a 7 day course of steroids. Complete course of doxycycline for additional 3 days P.r.n. duo nebs as needed Mechanical aortic valve replacement on warfarin Goal INR should be 2-3 with a mechanical AVR Daily INRs and Coumadin adjustments PPI to prevent ulcer Type 2 diabetes Continue glipizide Insulins lispro sliding scale t.i.d. a.c. Recent A1c 6.3 Hyperlipidemia/hypertension/PPM Continue atorvastatin Continue lisinopril and Lopressor COPD/asthma overlap Continue montelukast Breo Ellipta if able P.r.n. nebulizer treatments Thank you for allowing me to participate in the care of this patient. Will follow with you, please notify medical provider with any changes in condition or concerns.
[2025-02-21 09:21] LABS: Folate 4.5 ng/mL (> or = 4.0); Vitamin B12 725 pg/mL (200-900)
[2025-02-21 11:01] LABS: Glucose, Whole Blood 155 mg/dL (60-115)
--- NOTE | 2025-02-21 13:07 | HO.HCP_ITS ---
Health Care Proxy Invocation Health Care Proxy Declaration: Sandra Lepe__, on the date cited below, have determined that, Manuel Vasquez____, lacks the capacity to make or communicate, informed health care decision. This determination is made in accordance with accepted standards of medical judgment and pursuant to [place], the [place] Health Care Proxy Law. The cause, nature, extent and probable duration of the patient's inapacity are described below: Cause:oriented only to self, not able to retain new information, language impairments. Nature:Major Neurocognitive Disorder Extent:Not expected to be regained. Probable Duration of Patient's Incapacity:
--- NOTE | 2025-02-21 14:42 | HO.PSYCHPN ---
Subjective Subjective Date of Service: 02/21/25 Reason For Visit: dementia with disturbed behaviors Subjective Notes: Section 12B Interim History: Pt oriented only to self. self dialoguing, appears to see something that is not there. His speech is marked with aphasia. He looks at this contract writer as I called his name. He is not able to provide answers to other questions due to expressive aphasia. collateral information gathered from his , who reports he has been seeing people and objects for about one year, on a daily basis and he talks to them. He is combative with direct care. We discussed goals of care, will increase seroquel, will also increase sertraline as insome cases of LBD serotonin may actually decrease visual hallucinations. Diagnostics Vital Signs (24Hr): Vital Signs - 24 hr 02/20/25 20:00 02/20/25 23:02 02/21/25 08:00 Temperature 97.7 F 97.5 F Pulse Rate 60 60 77 Respiratory Rate 20 16 Blood Pressure 187/94 H 187/94 H 104/70 Pulse Oximetry 97 94 Oxygen Delivery Method Room Air BMI result Body Mass Index 20.9 Labs 02/21/25 07:38 Labs: Laboratory Results - last 48 hr 02/20/25 02/21/25 02/21/25 21:08 07:13 07:38 PT 50.8 H D INR 4.3 H Sodium 142 Potassium 4.4 Chloride 110 H Carbon Dioxide 23 Anion Gap 13 BUN 52 H Creatinine 1.28 Estim Creat Clear Calc 47.2 Estimated GFR 55 POC Glucose 136 H 112 Random Glucose 114 Estimat Average Glucose 134 Hemoglobin A1c % 6.3 H Calcium 9.0 Total Bilirubin 1.0 AST 33 ALT 35 Alkaline Phosphatase 103 Total Protein 6.5 Albumin 3.8 Triglycerides 87 Cholesterol 104 LDL Cholesterol, Calc 58 HDL Cholesterol 29 L Vitamin B12 Folate TSH 1.08 Free T4 1.23 02/21/25 02/21/25 08:08 10:49 PT INR Sodium Potassium Chloride Carbon Dioxide Anion Gap BUN Creatinine Estim Creat Clear Calc Estimated GFR POC Glucose 155 H Random Glucose Estimat Average Glucose Hemoglobin A1c % Calcium Total Bilirubin AST ALT Alkaline Phosphatase Total Protein Albumin Triglycerides Cholesterol LDL Cholesterol, Calc HDL Cholesterol Vitamin B12 725 Folate 4.5 TSH Free T4 Medications Medications Current Medications Acetaminophen (Acetaminophen 325 Mg Tablet) 650 mg PO Q6H PRN PRN Reason: Headache/Pain, Scale 1-10 Al Hydroxide/Mg Hydroxide (Magnesium Hydrox/Alum Hydrox 30 Ml Oral.Susp) 30 ml PO Q6H PRN PRN Reason: Heartburn/Nausea Albuterol/Ipratropium (Albuterol/Iprat 2.5/0.5mg 3 Ml Ampul.Neb) 3 ml INHALE RQ6H WHILE AWAKE PRN PRN Reason: SOB, wheeze Atorvastatin Calcium (Atorvastatin Calcium 20 Mg Tablet) 20 mg PO DAILY@1930 [facility] Last Admin: 02/20/25 23:03 Dose: 20 mg Doxycycline Monohydrate (Doxycycline Monohydrate 100 Mg Capsule) 100 mg PO Q12H [facility] Stop: 02/23/25 21:00 Last Admin: 02/21/25 11:48 Dose: 100 mg Fluticasone/Vilanterol (Fluticasone/Vilanterol 100/25 Blst.W.Dev) 1 puff INHALE RDAILY [facility] Last Admin: 02/21/25 13:38 Dose: Not Given Glipizide (Glipizide Xl 5 Mg Tab.Er.24) 5 mg PO DAILY@0815 [facility] Last Admin: 02/21/25 08:29 Dose: 5 mg Insulin Human Lispro (Insulin Lispro 100 Unit/Ml 3 Ml Vial) 0 unit SUBCUT TIDAC [facility]; Protocol Lisinopril (Lisinopril 5 Mg Tablet) 5 mg PO DAILY [facility]; Protocol Last Admin: 02/21/25 08:22 Dose: 5 mg Magnesium Hydroxide (Milk Of Magnesia 30 Ml Oral.Susp) 30 ml PO DAILY PRN PRN Reason: Constipation Melatonin (Melatonin 3 Mg Tablet) 6 mg PO BEDTIME [facility] Last Admin: 02/20/25 23:03 Dose: 6 mg Metoprolol Tartrate (Metoprolol Tartrate 25 Mg Tablet) 25 mg PO BID [facility]; Protocol Last Admin: 02/21/25 08:22 Dose: 25 mg Montelukast Sodium (Montelukast Sodium 10 Mg Tablet) 10 mg PO BEDTIME [facility] Nicotine Polacrilex (Nicotine Polacrilex 2 Mg Gum) 2 mg BUCCAL Q2H PRN PRN Reason: Nicotine Cravings Olanzapine (Olanzapine Odt 10 Mg Tab.Rapdis) 10 mg TRANSLINGU BID PRN PRN Reason: severe agitation/psychosis Last Admin: 02/20/25 18:42 Dose: 10 mg Omeprazole (Omeprazole 20 Mg Capsule.Dr) 20 mg PO DAILY@0630 [facility] Last Admin: 02/21/25 13:39 Dose: Not Given Quetiapine Fumarate (Quetiapine Fumarate 25 Mg Tablet) 25 mg PO BID PRN PRN Reason: agitation Last Admin: 02/20/25 23:04 Dose: 25 mg Quetiapine Fumarate (Quetiapine Fumarate 50 Mg Tablet) 50 mg PO TID [facility] Rivastigmine Tartrate (Rivastigmine Tartrate 1.5 Mg Capsule) 1.5 mg PO BID [facility] Last Admin: 02/21/25 08:22 Dose: 1.5 mg Sertraline HCl (Sertraline Hcl 100 Mg Tablet) 100 mg PO DAILY [facility] Trazodone HCl (Trazodone Hcl 50 Mg Tablet) 50 mg PO BEDTIME MRX1 PRN PRN Reason: Insomnia Last Admin: 02/20/25 23:04 Dose: 50 mg Warfarin Sodium (Warfarin Sodium 2.5 Mg Tablet) 2.5 mg PO MoWeFrSa@1800 [facility] Warfarin Sodium (Warfarin Sodium 5 Mg Tablet) 5 mg PO SuTuTh@1800 [facility] Allergies Allergies Allergy/AdvReac Type Severity Reaction Status Date / Time metformin AdvReac Intermediate Stomach Verified 02/06/25 09:52 Upset Assessment & Plan Assessment & Plan (1) Dementia with Lewy bodies: Qualifiers: Dementia severity: severe Dementia behavioral or psychological symptom: without behavioral, psychotic, or mood disturbance or anxiety Qualified Code(s): G31.83 - Neurocognitive disorder with Lewy bodies; F02.C0 - Dementia in other diseases classified elsewhere, severe, without behavioral disturbance, psychotic disturbance, mood disturbance, and anxiety Status: Acute Code(s): G31.83 - Neurocognitive disorder with Lewy bodies; F02.80 - Dementia in other diseases classified elsewhere, unspecified severity, without behavioral disturbance, psychotic disturbance, mood disturbance, and anxiety (2) Diabetes type 2: Qualifiers: Diabetes mellitus complication status: with other specified complication 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 Vasquez is a 74 year-old male with a hx of LBD who has been presenting with visual hallucinations for over one year. He has also been presenting more recently with increase agitation and combative behaviors. He recently had medication changes done by his neurologist including adding risperidone. Unclear if risperidone increase behaviors as it appears from collateral information from his that combative behaviors have been progressively increasing. As to the visual hallucinations, these are more chronic and unclear if we will be able to eliminate them. Agree with keeping galantamine as in context of LBD may help with VH, more than higher potency antipsychotics. Discussed with goals of care- She wants code to be DNR/DNI. We discussed increasing seroquel to 50mg po TID, and will also increase sertraline to 100mg po daily as serotonin in some cases of LBD actually may reduce VH. Reason for continued inpatient stay Substantial Risk for: inability to function Time Spent With Patient Time: Total time managing care of this patient today ____ minutes.
[2025-02-21 16:27] LABS: Glucose, Whole Blood 132 mg/dL (60-115)
[2025-02-21] MEDS: OLANZapine ODT 10 MG TAB.RAPDIS TRANSLINGU (16:36)
[2025-02-21 19:54] VITALS: BP 99/58; PULSE 63; TEMP 36.6
[2025-02-21 21:23] LABS: Glucose, Whole Blood 135 mg/dL (60-115)
[2025-02-21 21:38] VITALS: BP 138/64; PULSE 60
--- NOTE | 2025-02-22 06:58 | PC.NURSE ---
Pt combative and refusing POC
[2025-02-22 08:00] VITALS: BP 101/69; PULSE 60; TEMP 36.3; O2SAT 98
[2025-02-22 08:17] LABS: INTERNATIONAL NORM RATIO 4.8 (0.9-1.1); Prothrombin Time 56.9 SEC (11.2-13.5)
--- NOTE | 2025-02-22 14:59 | P.PNPSI_ITS ---
Subjective Subjective Date of Service: 02/22/25 Reason For Visit: dementia with disturbed behaviors Subjective Notes: Conditional Voluntary Interim History: Pt slept through the night. Pt pleasant on approach and less combative with care, although it continues to be a barrier. Pt continues to self dialogue in response to visual hallucinations but his attention and ability to stay with some of the questions this report writer is asking has improved. At baseline he is oriented only to self. He is taking medications as prescribed. signed CV by HCP. plan to place pt once behaviors more stable. Medication Compliance: Yes Diagnostics Vital Signs (24Hr): Vital Signs - 24 hr 02/21/25 19:54 02/21/25 21:38 02/22/25 08:00 Temperature 97.9 F 97.3 F Pulse Rate 63 60 60 Blood Pressure 99/58 L 138/64 101/69 Pulse Oximetry 98 Oxygen Delivery Method Room Air BMI result Body Mass Index 20.9 Labs 02/21/25 07:38 Labs: Laboratory Results - last 48 hr 02/20/25 02/21/25 02/21/25 21:08 07:13 07:38 PT 50.8 H D INR 4.3 H Sodium 142 Potassium 4.4 Chloride 110 H Carbon Dioxide 23 Anion Gap 13 BUN 52 H Creatinine 1.28 Estim Creat Clear Calc 47.2 Estimated GFR 55 POC Glucose 136 H 112 Random Glucose 114 Estimat Average Glucose 134 Hemoglobin A1c % 6.3 H Calcium 9.0 Total Bilirubin 1.0 AST 33 ALT 35 Alkaline Phosphatase 103 Total Protein 6.5 Albumin 3.8 Triglycerides 87 Cholesterol 104 LDL Cholesterol, Calc 58 HDL Cholesterol 29 L Vitamin B12 Folate TSH 1.08 Free T4 1.23 02/21/25 02/21/25 02/21/25 08:08 10:49 16:23 PT INR Sodium Potassium Chloride Carbon Dioxide Anion Gap BUN Creatinine Estim Creat Clear Calc Estimated GFR POC Glucose 155 H 132 H Random Glucose Estimat Average Glucose Hemoglobin A1c % Calcium Total Bilirubin AST ALT Alkaline Phosphatase Total Protein Albumin Triglycerides Cholesterol LDL Cholesterol, Calc HDL Cholesterol Vitamin B12 725 Folate 4.5 TSH Free T4 02/21/25 02/22/25 21:17 07:40 PT 56.9 H INR 4.8 H Sodium Potassium Chloride Carbon Dioxide Anion Gap BUN Creatinine Estim Creat Clear Calc Estimated GFR POC Glucose 135 H Random Glucose Estimat Average Glucose Hemoglobin A1c % Calcium Total Bilirubin AST ALT Alkaline Phosphatase Total Protein Albumin Triglycerides Cholesterol LDL Cholesterol, Calc HDL Cholesterol Vitamin B12 Folate TSH Free T4 Medications Medications Current Medications Acetaminophen (Acetaminophen 325 Mg Tablet) 650 mg PO Q6H PRN PRN Reason: Headache/Pain, Scale 1-10 Al Hydroxide/Mg Hydroxide (Magnesium Hydrox/Alum Hydrox 30 Ml Oral.Susp) 30 ml PO Q6H PRN PRN Reason: Heartburn/Nausea Albuterol/Ipratropium (Albuterol/Iprat 2.5/0.5mg 3 Ml Ampul.Neb) 3 ml INHALE RQ6H WHILE AWAKE PRN PRN Reason: SOB, wheeze Atorvastatin Calcium (Atorvastatin Calcium 20 Mg Tablet) 20 mg PO DAILY@1930 [facility] Last Admin: 02/21/25 21:24 Dose: 20 mg Doxycycline Monohydrate (Doxycycline Monohydrate 100 Mg Capsule) 100 mg PO Q12H [facility] Stop: 02/23/25 21:00 Last Admin: 02/22/25 08:31 Dose: 100 mg Fluticasone/Vilanterol (Fluticasone/Vilanterol 100/25 Blst.W.Dev) 1 puff INHALE RDAILY [facility] Last Admin: 02/22/25 10:21 Dose: Not Given Glipizide (Glipizide Xl 5 Mg Tab.Er.24) 5 mg PO DAILY@0815 [facility] Last Admin: 02/22/25 08:35 Dose: 5 mg Insulin Human Lispro (Insulin Lispro 100 Unit/Ml 3 Ml Vial) 0 unit SUBCUT TIDAC [facility]; Protocol Last Admin: 02/22/25 11:43 Dose: Not Given Lisinopril (Lisinopril 5 Mg Tablet) 5 mg PO DAILY [facility]; Protocol Last Admin: 02/22/25 08:32 Dose: 5 mg Magnesium Hydroxide (Milk Of Magnesia 30 Ml Oral.Susp) 30 ml PO DAILY PRN PRN Reason: Constipation Melatonin (Melatonin 3 Mg Tablet) 6 mg PO BEDTIME [facility] Last Admin: 02/21/25 21:24 Dose: 6 mg Metoprolol Tartrate (Metoprolol Tartrate 25 Mg Tablet) 25 mg PO BID [facility]; Protocol Last Admin: 02/22/25 08:31 Dose: 25 mg Montelukast Sodium (Montelukast Sodium 10 Mg Tablet) 10 mg PO BEDTIME [facility] Last Admin: 02/21/25 21:24 Dose: 10 mg Nicotine Polacrilex (Nicotine Polacrilex 2 Mg Gum) 2 mg BUCCAL Q2H PRN PRN Reason: Nicotine Cravings Olanzapine (Olanzapine Odt 10 Mg Tab.Rapdis) 10 mg TRANSLINGU BID PRN PRN Reason: severe agitation/psychosis Last Admin: 02/21/25 16:36 Dose: 10 mg Omeprazole (Omeprazole 20 Mg Capsule.Dr) 20 mg PO DAILY@0630 [facility] Last Admin: 02/22/25 05:58 Dose: Not Given Quetiapine Fumarate (Quetiapine Fumarate 25 Mg Tablet) 25 mg PO BID PRN PRN Reason: agitation Last Admin: 02/20/25 23:04 Dose: 25 mg Quetiapine Fumarate (Quetiapine Fumarate 50 Mg Tablet) 50 mg PO TID [facility] Last Admin: 02/22/25 14:35 Dose: 50 mg Rivastigmine Tartrate (Rivastigmine Tartrate 1.5 Mg Capsule) 1.5 mg PO BID [facility] Last Admin: 02/22/25 08:31 Dose: 1.5 mg Sertraline HCl (Sertraline Hcl 100 Mg Tablet) 100 mg PO DAILY [facility] Last Admin: 02/22/25 08:32 Dose: 100 mg Trazodone HCl (Trazodone Hcl 50 Mg Tablet) 50 mg PO BEDTIME MRX1 PRN PRN Reason: Insomnia Last Admin: 02/20/25 23:04 Dose: 50 mg Warfarin Sodium (Warfarin Sodium 5 Mg Tablet) 5 mg PO SuTuTh@1800 [facility] Warfarin Sodium (Warfarin Sodium 2.5 Mg Tablet) 2.5 mg PO MoWeFrSa@1800 [facility] Allergies Allergies Allergy/AdvReac Type Severity Reaction Status Date / Time metformin AdvReac Intermediate Stomach Verified 02/06/25 09:52 Upset Assessment & Plan Assessment & Plan (1) Dementia with Lewy bodies: Qualifiers: Dementia severity: severe Dementia behavioral or psychological symptom: without behavioral, psychotic, or mood disturbance or anxiety Qualified Code(s): G31.83 - Neurocognitive disorder with Lewy bodies; F02.C0 - Dementia in other diseases classified elsewhere, severe, without behavioral disturbance, psychotic disturbance, mood disturbance, and anxiety Status: Acute Code(s): G31.83 - Neurocognitive disorder with Lewy bodies; F02.80 - Dementia in other diseases classified elsewhere, unspecified severity, without behavioral disturbance, psychotic disturbance, mood disturbance, and anxiety (2) Diabetes type 2: Qualifiers: Diabetes mellitus complication status: with other specified complication Diabetes mellitus longitudinal float operator insulin use: without long-term use Qualified Code(s): E11.69 - Type 2 diabetes mellitus with other specified complication Status: Acute Code(s): E11.9 - Type 2 diabetes mellitus without complications Plan Mr. Vasquez is a 74 year-old male with a hx of LBD who has been presenting with visual hallucinations for over one year. He has also been presenting more recently with increase agitation and combative behaviors. He recently had medication changes done by his neurologist including adding risperidone. Unclear if risperidone increase behaviors as it appears from collateral information from his that combative behaviors have been progressively increasing. As to the visual hallucinations, these are more chronic and unclear if we will be able to eliminate them. Agree with keeping galantamine as in context of LBD may help with VH, more than higher potency antipsychotics. Discussed with goals of care- She wants code to be DNR/DNI. We discussed increasing seroquel to 50mg po TID, and will also increase sertraline to 100mg po daily as serotonin in some cases of LBD actually may reduce VH. 02/22 continue sertraline 100mg po daily. continue Seroquel 50mg po TID. Reason for continued inpatient stay Substantial Risk for: inability to function Time Spent With Patient Time: Total time managing care of this patient today ____ minutes.
[2025-02-22 20:00] VITALS: BP 103/61; PULSE 62; RESP 18; TEMP 36.2; O2SAT 95
[2025-02-22 21:47] VITALS: BP 103/61; PULSE 62
[2025-02-23 07:00] LABS: Glucose, Whole Blood 111 mg/dL (60-115)
--- NOTE | 2025-02-23 07:15 | HO.PSYCHPN ---
Subjective Subjective Date of Service: 02/23/25 Reason For Visit: dementia with disturbed behaviors Interim History: has been intermittently agitated as per nursing. Sleep ok. 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 Unable to engage in meaningful conversation. Accepting medications. Coumadin being held his INR remains elevated at 6.1 Diagnostics Vital Signs (24Hr): Vital Signs - 24 hr 02/22/25 08:00 02/22/25 20:00 02/22/25 21:47 Temperature 97.3 F 97.2 F Pulse Rate 60 62 62 Respiratory Rate 18 Blood Pressure 101/69 103/61 103/61 Pulse Oximetry 98 95 Oxygen Delivery Method Room Air Room Air BMI result Body Mass Index 20.9 Labs 02/21/25 07:38 Labs: Laboratory Results - last 48 hr 02/21/25 02/21/25 02/21/25 07:13 07:38 08:08 PT 50.8 H D INR 4.3 H Sodium 142 Potassium 4.4 Chloride 110 H Carbon Dioxide 23 Anion Gap 13 BUN 52 H Creatinine 1.28 Estim Creat Clear Calc 47.2 Estimated GFR 55 POC Glucose 112 Random Glucose 114 Estimat Average Glucose 134 Hemoglobin A1c % 6.3 H Calcium 9.0 Total Bilirubin 1.0 AST 33 ALT 35 Alkaline Phosphatase 103 Total Protein 6.5 Albumin 3.8 Triglycerides 87 Cholesterol 104 LDL Cholesterol, Calc 58 HDL Cholesterol 29 L Vitamin B12 725 Folate 4.5 TSH 1.08 Free T4 1.23 02/21/25 02/21/25 02/21/25 10:49 16:23 21:17 PT INR Sodium Potassium Chloride Carbon Dioxide Anion Gap BUN Creatinine Estim Creat Clear Calc Estimated GFR POC Glucose 155 H 132 H 135 H Random Glucose Estimat Average Glucose Hemoglobin A1c % Calcium Total Bilirubin AST ALT Alkaline Phosphatase Total Protein Albumin Triglycerides Cholesterol LDL Cholesterol, Calc HDL Cholesterol Vitamin B12 Folate TSH Free T4 02/22/25 02/23/25 07:40 06:46 PT 56.9 H INR 4.8 H Sodium Potassium Chloride Carbon Dioxide Anion Gap BUN Creatinine Estim Creat Clear Calc Estimated GFR POC Glucose 111 Random Glucose Estimat Average Glucose Hemoglobin A1c % Calcium Total Bilirubin AST ALT Alkaline Phosphatase Total Protein Albumin Triglycerides Cholesterol LDL Cholesterol, Calc HDL Cholesterol Vitamin B12 Folate TSH Free T4 Medications Medications Current Medications Acetaminophen (Acetaminophen 325 Mg Tablet) 650 mg PO Q6H PRN PRN Reason: Headache/Pain, Scale 1-10 Al Hydroxide/Mg Hydroxide (Magnesium Hydrox/Alum Hydrox 30 Ml Oral.Susp) 30 ml PO Q6H PRN PRN Reason: Heartburn/Nausea Albuterol/Ipratropium (Albuterol/Iprat 2.5/0.5mg 3 Ml Ampul.Neb) 3 ml INHALE RQ6H WHILE AWAKE PRN PRN Reason: SOB, wheeze Atorvastatin Calcium (Atorvastatin Calcium 20 Mg Tablet) 20 mg PO DAILY@1930 [facility] Last Admin: 02/22/25 21:05 Dose: 20 mg Doxycycline Monohydrate (Doxycycline Monohydrate 100 Mg Capsule) 100 mg PO Q12H [facility] Stop: 02/23/25 21:00 Last Admin: 02/22/25 21:04 Dose: 100 mg Fluticasone/Vilanterol (Fluticasone/Vilanterol 100/25 Blst.W.Dev) 1 puff INHALE RDAILY [facility] Last Admin: 02/22/25 10:21 Dose: Not Given Glipizide (Glipizide Xl 5 Mg Tab.Er.24) 5 mg PO DAILY@0815 [facility] Last Admin: 02/22/25 08:35 Dose: 5 mg Insulin Human Lispro (Insulin Lispro 100 Unit/Ml 3 Ml Vial) 0 unit SUBCUT TIDAC [facility]; Protocol Last Admin: 02/22/25 16:43 Dose: Not Given Lisinopril (Lisinopril 5 Mg Tablet) 5 mg PO DAILY [facility]; Protocol Last Admin: 02/22/25 08:32 Dose: 5 mg Magnesium Hydroxide (Milk Of Magnesia 30 Ml Oral.Susp) 30 ml PO DAILY PRN PRN Reason: Constipation Melatonin (Melatonin 3 Mg Tablet) 6 mg PO BEDTIME [facility] Last Admin: 02/22/25 21:04 Dose: 6 mg Metoprolol Tartrate (Metoprolol Tartrate 25 Mg Tablet) 25 mg PO BID [facility]; Protocol Last Admin: 02/22/25 21:47 Dose: 25 mg Montelukast Sodium (Montelukast Sodium 10 Mg Tablet) 10 mg PO BEDTIME [facility] Last Admin: 02/22/25 21:03 Dose: 10 mg Nicotine Polacrilex (Nicotine Polacrilex 2 Mg Gum) 2 mg BUCCAL Q2H PRN PRN Reason: Nicotine Cravings Olanzapine (Olanzapine Odt 10 Mg Tab.Rapdis) 10 mg TRANSLINGU BID PRN PRN Reason: severe agitation/psychosis Last Admin: 02/21/25 16:36 Dose: 10 mg Omeprazole (Omeprazole 20 Mg Capsule.Dr) 20 mg PO DAILY@0630 [facility] Last Admin: 02/23/25 06:44 Dose: 20 mg Quetiapine Fumarate (Quetiapine Fumarate 25 Mg Tablet) 25 mg PO BID PRN PRN Reason: agitation Last Admin: 02/20/25 23:04 Dose: 25 mg Quetiapine Fumarate (Quetiapine Fumarate 50 Mg Tablet) 50 mg PO TID [facility] Last Admin: 02/22/25 21:04 Dose: 50 mg Rivastigmine Tartrate (Rivastigmine Tartrate 1.5 Mg Capsule) 1.5 mg PO BID [facility] Last Admin: 02/22/25 21:04 Dose: 1.5 mg Sertraline HCl (Sertraline Hcl 100 Mg Tablet) 100 mg PO DAILY [facility] Last Admin: 02/22/25 08:32 Dose: 100 mg Trazodone HCl (Trazodone Hcl 50 Mg Tablet) 50 mg PO BEDTIME MRX1 PRN PRN Reason: Insomnia Last Admin: 02/20/25 23:04 Dose: 50 mg Warfarin Sodium (Warfarin Sodium 5 Mg Tablet) 5 mg PO SuTuTh@1800 [facility] Warfarin Sodium (Warfarin Sodium 2.5 Mg Tablet) 2.5 mg PO MoWeFrSa@1800 [facility] Allergies Allergies Allergy/AdvReac Type Severity Reaction Status Date / Time metformin AdvReac Intermediate Stomach Verified 02/06/25 09:52 Upset Assessment & Plan Assessment & Plan (1) Diabetes type 2: Qualifiers: Diabetes mellitus complication status: with other specified complication Diabetes mellitus jail insulin use: without oil heaterman use Qualified Code(s): E11.69 - Type 2 diabetes mellitus with other specified complication Status: Acute Code(s): E11.9 - Type 2 diabetes mellitus without complications (2) Dementia with Lewy bodies: Qualifiers: Dementia severity: severe Dementia behavioral or psychological symptom: without behavioral, psychotic, or mood disturbance or anxiety Qualified Code(s): G31.83 - Neurocognitive disorder with Lewy bodies; F02.C0 - Dementia in other diseases classified elsewhere, severe, without behavioral disturbance, psychotic disturbance, mood disturbance, and anxiety Status: Acute Code(s): G31.83 - Neurocognitive disorder with Lewy bodies; F02.80 - Dementia in other diseases classified elsewhere, unspecified severity, without behavioral disturbance, psychotic disturbance, mood disturbance, and anxiety Plan Plan Mr. Vasquez is a 74 year-old male with a hx of LBD who has been presenting with visual hallucinations for over one year. He has also been presenting more recently with increase agitation and combative behaviors. He recently had medication changes done by his neurologist including adding risperidone. Unclear if risperidone increase behaviors as it appears from collateral information from his that combative behaviors have been progressively increasing. As to the visual hallucinations, these are more chronic and unclear if we will be able to eliminate them. Agree with keeping galantamine as in context of LBD may help with VH, more than higher potency antipsychotics. Discussed with goals of care- She wants code to be DNR/DNI. We discussed increasing seroquel to 50mg po TID, and will also increase sertraline to 100mg po daily as serotonin in some cases of LBD actually may reduce VH. 02/22 continue sertraline 100mg po daily. continue Seroquel 50mg po TID along with prn medications 02/23: maintain current regimen. Coumadin being held as INR 6.1 Reason for continued inpatient stay Substantial Risk for: harm to others Time Spent With Patient Time: Total time managing care of this patient today ____ minutes.
[2025-02-23 08:00] VITALS: BP 104/72; PULSE 68; RESP 16; TEMP 36.5; O2SAT 96
[2025-02-23 08:58] LABS: INTERNATIONAL NORM RATIO 6.1 (0.9-1.1); Prothrombin Time 71.3 SEC (11.2-13.5)
[2025-02-23 20:00] VITALS: BP 115/60; PULSE 61; RESP 16; TEMP 36.9; O2SAT 95
[2025-02-24 07:06] LABS: Glucose, Whole Blood 122 mg/dL (60-115)
--- NOTE | 2025-02-24 07:55 | P.PNPSI_ITS ---
Subjective Subjective Date of Service: 02/24/25 Reason For Visit: dementia with disturbed behaviors Interim History: Has been intermittently agitated as per nursing. Sleep ok. 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 Unable to engage in meaningful conversation. Accepting medications. Coumadin being held his INR remains elevated at 6.8. Will order PT eval to minimize further physical decompensation (was ambulating indepednetly at home pre admisison as per nursing). Medication Compliance: Yes Side effects from medications: No Attending Groups: No Review of Systems Acute medical concerns: No Mental Status Exam Mental Status Exam Narrative: Patient is Alert and awake to self only, and does not know where he is. Wearing hospital attire. Speech is clear and loud but does not make sense to content being asked. Mood is less irritable. Thought process is confused and disorganized. Appear responding to internal stimuli, self dialogue loudly. VH evident. No evidence of SI, HI. Impaired judgment and insight. Diagnostics Vital Signs (24Hr): Vital Signs - 24 hr 02/23/25 08:00 02/23/25 20:00 Temperature 97.7 F 98.4 F Pulse Rate 68 61 Respiratory Rate 16 16 Blood Pressure 104/72 115/60 Pulse Oximetry 96 95 Oxygen Delivery Method Room Air Room Air BMI result Body Mass Index 20.9 Labs 02/21/25 07:38 Labs: Laboratory Results - last 48 hr 02/22/25 02/23/25 02/23/25 07:40 06:46 08:12 PT 56.9 H 71.3 H D INR 4.8 H 6.1 H* POC Glucose 111 02/24/25 06:54 PT INR POC Glucose 122 H Medications Medications Current Medications Acetaminophen (Acetaminophen 325 Mg Tablet) 650 mg PO Q6H PRN PRN Reason: Headache/Pain, Scale 1-10 Al Hydroxide/Mg Hydroxide (Magnesium Hydrox/Alum Hydrox 30 Ml Oral.Susp) 30 ml PO Q6H PRN PRN Reason: Heartburn/Nausea Albuterol/Ipratropium (Albuterol/Iprat 2.5/0.5mg 3 Ml Ampul.Neb) 3 ml INHALE RQ6H WHILE AWAKE PRN PRN Reason: SOB, wheeze Atorvastatin Calcium (Atorvastatin Calcium 20 Mg Tablet) 20 mg PO DAILY@1930 [facility] Last Admin: 02/23/25 21:10 Dose: Not Given Fluticasone/Vilanterol (Fluticasone/Vilanterol 100/25 Blst.W.Dev) 1 puff INHALE RDAILY [facility] Last Admin: 02/23/25 10:46 Dose: Not Given Glipizide (Glipizide Xl 5 Mg Tab.Er.24) 5 mg PO DAILY@0815 [facility] Last Admin: 02/23/25 10:46 Dose: 5 mg Insulin Human Lispro (Insulin Lispro 100 Unit/Ml 3 Ml Vial) 0 unit SUBCUT TIDAC [facility]; Protocol Last Admin: 02/23/25 16:32 Dose: Not Given Lisinopril (Lisinopril 5 Mg Tablet) 5 mg PO DAILY [facility]; Protocol Last Admin: 02/23/25 10:44 Dose: 5 mg Magnesium Hydroxide (Milk Of Magnesia 30 Ml Oral.Susp) 30 ml PO DAILY PRN PRN Reason: Constipation Melatonin (Melatonin 3 Mg Tablet) 6 mg PO BEDTIME [facility] Last Admin: 02/23/25 21:10 Dose: Not Given Metoprolol Tartrate (Metoprolol Tartrate 25 Mg Tablet) 25 mg PO BID [facility]; Protocol Last Admin: 02/23/25 10:45 Dose: 25 mg Montelukast Sodium (Montelukast Sodium 10 Mg Tablet) 10 mg PO BEDTIME [facility] Last Admin: 02/23/25 21:10 Dose: Not Given Nicotine Polacrilex (Nicotine Polacrilex 2 Mg Gum) 2 mg BUCCAL Q2H PRN PRN Reason: Nicotine Cravings Olanzapine (Olanzapine Odt 10 Mg Tab.Rapdis) 10 mg TRANSLINGU BID PRN PRN Reason: severe agitation/psychosis Last Admin: 02/21/25 16:36 Dose: 10 mg Omeprazole (Omeprazole 20 Mg Capsule.Dr) 20 mg PO DAILY@0630 [facility] Last Admin: 02/24/25 06:24 Dose: 20 mg Quetiapine Fumarate (Quetiapine Fumarate 25 Mg Tablet) 25 mg PO BID PRN PRN Reason: agitation Last Admin: 02/24/25 01:45 Dose: 25 mg Quetiapine Fumarate (Quetiapine Fumarate 50 Mg Tablet) 50 mg PO TID [facility] Last Admin: 02/23/25 21:10 Dose: Not Given Rivastigmine Tartrate (Rivastigmine Tartrate 1.5 Mg Capsule) 1.5 mg PO BID [facility] Last Admin: 02/23/25 21:10 Dose: Not Given Sertraline HCl (Sertraline Hcl 100 Mg Tablet) 100 mg PO DAILY [facility] Last Admin: 02/23/25 10:44 Dose: 100 mg Trazodone HCl (Trazodone Hcl 50 Mg Tablet) 50 mg PO BEDTIME MRX1 PRN PRN Reason: Insomnia Last Admin: 02/24/25 01:45 Dose: 50 mg Warfarin Sodium (Warfarin Sodium 5 Mg Tablet) 5 mg PO SuTuTh@1800 [facility] Warfarin Sodium (Warfarin Sodium 2.5 Mg Tablet) 2.5 mg PO MoWeFrSa@1800 [facility] On Hold: 02/23/25 18:00 Resume: 02/24/25 09:00 Comment: 6.1 Allergies Allergies Allergy/AdvReac Type Severity Reaction Status Date / Time metformin AdvReac Intermediate Stomach Verified 02/06/25 09:52 Upset Assessment & Plan Assessment & Plan (1) Diabetes type 2: Qualifiers: Diabetes mellitus complication status: with other specified complication 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 insulin use: without halfway use Qualified Code(s): E11.69 - Type 2 diabetes mellitus with other specified complication Status: Acute Code(s): E11.9 - Type 2 diabetes mellitus without complications (2) Dementia with Lewy bodies: Qualifiers: Dementia behavioral or psychological symptom: without behavioral, psychotic, or mood disturbance or anxiety Dementia severity: severe Qualified Code(s): G31.83 - Neurocognitive disorder with Lewy bodies; F02.C0 - Dementia in other diseases classified elsewhere, severe, without behavioral disturbance, psychotic disturbance, mood disturbance, and anxiety Status: Acute Code(s): G31.83 - Neurocognitive disorder with Lewy bodies; F02.80 - Dementia in other diseases classified elsewhere, unspecified severity, without behavioral disturbance, psychotic disturbance, mood disturbance, and anxiety Plan Plan Mr. Vasquez is a 74 year-old male with a hx of LBD who has been presenting with visual hallucinations for over one year. He has also been presenting more recently with increase agitation and combative behaviors. He recently had medication changes done by his neurologist including adding risperidone. Unclear if risperidone increase behaviors as it appears from collateral information from his that combative behaviors have been progressively increasing. As to the visual hallucinations, these are more chronic and unclear if we will be able to eliminate them. Agree with keeping galantamine as in context of LBD may help with VH, more than higher potency antipsychotics. Discussed with goals of care- She wants code to be DNR/DNI. We discussed increasing seroquel to 50mg po TID, and will also increase sertraline to 100mg po daily as serotonin in some cases of LBD actually may reduce VH. 02/22 continue sertraline 100mg po daily. continue Seroquel 50mg po TID along with prn medications 02/23: maintain current regimen. Coumadin being held as INR 6.1 02/24: Will order PT eval to minimize further physical decompensation (was ambulating indepednetly at home pre admisison as per nursing). Reason for continued inpatient stay Substantial Risk for: inability to function Time Spent With Patient Time: Total time managing care of this patient today ____ minutes.
[2025-02-24 08:00] VITALS: BP 99/65; PULSE 60; RESP 18; TEMP 36.6; O2SAT 95
[2025-02-24 08:04] LABS: Prothrombin Time 78.6 SEC (11.2-13.5)
[2025-02-24 08:20] LABS: INTERNATIONAL NORM RATIO 6.8 (0.9-1.1)
[2025-02-24 16:08] LABS: Glucose, Whole Blood 121 mg/dL (60-115)
--- NOTE | 2025-02-24 19:03 | P.EN_ITS ---
Event Note Date of Service: 02/24/25 Event Note: Patient's INR continues to increase to 6.8 today. We will continue to hold warfarin. LFTs from 02/21 WNL. Supratherapeutic INR possibly secondary to antibiotics that pt was on prior to transfer to [facility]. We will continue to monitor and resume warfarin as indicated. Time Spent With Patient Time: Total time managing care of this patient today ____ minutes.
[2025-02-24 20:00] VITALS: BP 102/61; PULSE 62; RESP 18; TEMP 36.2; O2SAT 95
[2025-02-25 07:58] VITALS: BP 100/65; PULSE 70; RESP 18; TEMP 36.2; O2SAT 95
[2025-02-25 08:12] LABS: Glucose, Whole Blood 130 mg/dL (60-115)
[2025-02-25] MEDS: Fluticasone/Vilanterol 100/25 BLST.W.DEV 1 PUFF INHALE (08:38)
[2025-02-25 08:43] LABS: Prothrombin Time 88.4 SEC (11.2-13.5)
[2025-02-25 08:47] LABS: INTERNATIONAL NORM RATIO 7.6 (0.9-1.1)
--- NOTE | 2025-02-25 08:57 | HO.PSYCHPN ---
Subjective Subjective Date of Service: 02/25/25 Reason For Visit: dementia with disturbed behaviors Subjective Notes: Conditional Voluntary Healthcare Proxy: Yes Interim History: Pt slept through the night. He has been sleeping about 6-8hrs at times. He has at times continue to present with combative behaviors, especially when direct care is provided. Of concern is his INR- today 7.6 (it has been progressively going up from 4.6 last week). Hospitalist notified. warfarin has been held. CMP completed today- no electrolyte abnormality, seems some worsening of renal function with elevated at baseline BUN today at 55, Cr 1.30, creatinine clearance 46 (note creatinine clearance on 02/16/25 was 76). He has been mostly in bed. Not able to ambulate on his own. His oral intake is poor. Mental Status Exam Mental Status Exam Narrative: Pt in bed, lying down. Sleepy at time this food writer saw him. Diagnostics Vital Signs (24Hr): Vital Signs - 24 hr 02/24/25 20:00 02/25/25 07:58 Temperature 97.2 F 97.2 F Pulse Rate 62 70 Respiratory Rate 18 18 Blood Pressure 102/61 100/65 Pulse Oximetry 95 95 Oxygen Delivery Method Room Air Room Air BMI result Body Mass Index 20.9 Labs 02/25/25 09:51 02/25/25 09:51 Labs: Laboratory Results - last 48 hr 02/23/25 02/24/25 02/24/25 08:12 06:54 07:40 PT 71.3 H D 78.6 H INR 6.1 H* 6.8 H* POC Glucose 122 H 02/24/25 02/25/25 02/25/25 15:59 07:23 08:07 PT 88.4 H INR 7.6 H* POC Glucose 121 H 130 H Medications Medications Current Medications Acetaminophen (Acetaminophen 325 Mg Tablet) 650 mg PO Q6H PRN PRN Reason: Headache/Pain, Scale 1-10 Al Hydroxide/Mg Hydroxide (Magnesium Hydrox/Alum Hydrox 30 Ml Oral.Susp) 30 ml PO Q6H PRN PRN Reason: Heartburn/Nausea Albuterol/Ipratropium (Albuterol/Iprat 2.5/0.5mg 3 Ml Ampul.Neb) 3 ml INHALE RQ6H WHILE AWAKE PRN PRN Reason: SOB, wheeze Atorvastatin Calcium (Atorvastatin Calcium 20 Mg Tablet) 20 mg PO DAILY@1930 [facility] Last Admin: 02/24/25 22:08 Dose: Not Given Fluticasone/Vilanterol (Fluticasone/Vilanterol 100/25 Blst.W.Dev) 1 puff INHALE RDAILY [facility] Last Admin: 02/25/25 08:38 Dose: 1 puff Glipizide (Glipizide Xl 5 Mg Tab.Er.24) 5 mg PO DAILY@0815 [facility] Last Admin: 02/25/25 08:50 Dose: 5 mg Insulin Human Lispro (Insulin Lispro 100 Unit/Ml 3 Ml Vial) 0 unit SUBCUT TIDAC [facility]; Protocol Last Admin: 02/25/25 08:38 Dose: Not Given Lisinopril (Lisinopril 5 Mg Tablet) 5 mg PO DAILY [facility]; Protocol Last Admin: 02/25/25 08:26 Dose: 5 mg Magnesium Hydroxide (Milk Of Magnesia 30 Ml Oral.Susp) 30 ml PO DAILY PRN PRN Reason: Constipation Melatonin (Melatonin 3 Mg Tablet) 6 mg PO BEDTIME [facility] Last Admin: 02/24/25 22:07 Dose: Not Given Metoprolol Tartrate (Metoprolol Tartrate 25 Mg Tablet) 25 mg PO BID [facility]; Protocol Last Admin: 02/25/25 08:26 Dose: 25 mg Montelukast Sodium (Montelukast Sodium 10 Mg Tablet) 10 mg PO BEDTIME [facility] Last Admin: 02/24/25 22:07 Dose: Not Given Nicotine Polacrilex (Nicotine Polacrilex 2 Mg Gum) 2 mg BUCCAL Q2H PRN PRN Reason: Nicotine Cravings Olanzapine (Olanzapine Odt 10 Mg Tab.Rapdis) 10 mg TRANSLINGU BID PRN PRN Reason: severe agitation/psychosis Last Admin: 02/21/25 16:36 Dose: 10 mg Omeprazole (Omeprazole 20 Mg Capsule.Dr) 20 mg PO DAILY@0630 [facility] Last Admin: 02/25/25 05:57 Dose: 20 mg Quetiapine Fumarate (Quetiapine Fumarate 25 Mg Tablet) 25 mg PO BID PRN PRN Reason: agitation Last Admin: 02/24/25 01:45 Dose: 25 mg Quetiapine Fumarate (Quetiapine Fumarate 50 Mg Tablet) 50 mg PO TID [facility] Last Admin: 02/25/25 08:26 Dose: 50 mg Rivastigmine Tartrate (Rivastigmine Tartrate 1.5 Mg Capsule) 1.5 mg PO BID [facility] Last Admin: 02/25/25 08:26 Dose: 1.5 mg Sertraline HCl (Sertraline Hcl 100 Mg Tablet) 100 mg PO DAILY [facility] Last Admin: 02/25/25 08:26 Dose: 100 mg Trazodone HCl (Trazodone Hcl 50 Mg Tablet) 50 mg PO BEDTIME MRX1 PRN PRN Reason: Insomnia Last Admin: 02/24/25 01:45 Dose: 50 mg Warfarin Sodium (Warfarin Sodium 5 Mg Tablet) 5 mg PO SuTuTh@1800 [facility] Last Admin: 02/24/25 18:16 Dose: Not Given Warfarin Sodium (Warfarin Sodium 2.5 Mg Tablet) 2.5 mg PO MoWeFrSa@1800 [facility] On Hold: 02/23/25 18:00 Resume: 02/25/25 09:00 Comment: 6.1 02/22 and 6.8 02/25 Allergies Allergies Allergy/AdvReac Type Severity Reaction Status Date / Time metformin AdvReac Intermediate Stomach Verified 02/06/25 09:52 Upset Assessment & Plan Assessment & Plan (1) Dementia with Lewy bodies: Qualifiers: Dementia behavioral or psychological symptom: without behavioral, psychotic, or mood disturbance or anxiety Dementia severity: severe Qualified Code(s): G31.83 - Neurocognitive disorder with Lewy bodies; F02.C0 - Dementia in other diseases classified elsewhere, severe, without behavioral disturbance, psychotic disturbance, mood disturbance, and anxiety Status: Acute Code(s): G31.83 - Neurocognitive disorder with Lewy bodies; F02.80 - Dementia in other diseases classified elsewhere, unspecified severity, without behavioral disturbance, psychotic disturbance, mood disturbance, and anxiety (2) Diabetes type 2: Qualifiers: Diabetes mellitus complication status: with other specified complication Diabetes mellitus meterman insulin use: without half-way use Qualified Code(s): E11.69 - Type 2 diabetes mellitus with other specified complication Status: Acute Code(s): E11.9 - Type 2 diabetes mellitus without complications Plan Plan Mr. Vasquez is a 74 year-old male with a hx of LBD who has been presenting with visual hallucinations for over one year. He has also been presenting more recently with increase agitation and combative behaviors. He recently had medication changes done by his neurologist including adding risperidone. Unclear if risperidone increase behaviors as it appears from collateral information from his that combative behaviors have been progressively increasing. As to the visual hallucinations, these are more chronic and unclear if we will be able to eliminate them. Agree with keeping galantamine as in context of LBD may help with VH, more than higher potency antipsychotics. Discussed with goals of care- She wants code to be DNR/DNI. We discussed increasing seroquel to 50mg po TID, and will also increase sertraline to 100mg po daily as serotonin in some cases of LBD actually may reduce VH. 02/22 continue sertraline 100mg po daily. continue Seroquel 50mg po TID along with prn medications 02/23: maintain current regimen. Coumadin being held as INR 6.1 02/24: Will order PT eval to minimize further physical decompensation (was ambulating independently at home pre admission as per nursing). 02/25 INR 7.6- hospitalist informed, warfarin continues to be held. creatinine clearance decreased from 76 on 02/16 to 46 on 02/25. mostly in bed, decreased oral intake. continues to present with combative behaviors when direct care provided. aphasia, unable to obtain much information from pt. Reason for continued inpatient stay Substantial Risk for: inability to function Time Spent With Patient Time: Total time managing care of this patient today ____ minutes.
--- NOTE | 2025-02-25 09:16 | P.PNIM_ITS ---
Subjective Subjective Date of Service: 02/25/25 Interval History: Patient is seen for follow up elevated INR, COPD, hypertension. On exam patient is lying in bed, easily arousable. Continues to be confused, talking nonsensically. Per bedside compared inpatient ate some breakfast. He denies any pain or discomfort. Respiratory rate even and regular. His vital signs are stable. Afebrile. Blood pressure within normal limits. Medication adherence waxes and wanes. Review of Systems He denies any pain, otherwise review of symptoms difficult due to cognition. Review of Systems: Yes Unobtainable due to mental status Physical Exam 2 Exam: Exam: CONST: Alert and oriented, in NAD. Well nourished. Eyes closed, opens when you ask him, talking nonsensical. Smiling at times. HEENT: Normocephalic, atraumatic RESP: Respiratory rate even and regular. Lung sounds clear HEART: Heart rate regular rate and rhythm GI: Abdomen is soft, nontender positive bowel sounds x4 : Decline SKIN: Bilateral lower legs with venous stasis changes, left elbow with intact dressing, right hand with intact dressing. Multiple bruises on arms due to combative behavior and fragile skin. NEURO: Moves all extremities, Speech clear PSYCH: Answers some questions Vital Signs: Vital Signs: Last Vital Signs Temp 97.2 F 02/25/25 07:58 Pulse 70 02/25/25 07:58 Resp 18 02/25/25 07:58 BP 100/65 02/25/25 07:58 Pulse Ox 95 02/25/25 07:58 O2 Del Method Room Air 02/25/25 07:58 BMI result Body Mass Index 20.9 Objective Data Active Medications Acetaminophen (Acetaminophen 325 Mg Tablet) 650 mg PO Q6H PRN PRN Reason: Headache/Pain, Scale 1-10 Al Hydroxide/Mg Hydroxide (Magnesium Hydrox/Alum Hydrox 30 Ml Oral.Susp) 30 ml PO Q6H PRN PRN Reason: Heartburn/Nausea Albuterol/Ipratropium (Albuterol/Iprat 2.5/0.5mg 3 Ml Ampul.Neb) 3 ml INHALE RQ6H WHILE AWAKE PRN PRN Reason: SOB, wheeze Atorvastatin Calcium (Atorvastatin Calcium 20 Mg Tablet) 20 mg PO DAILY@1930 [facility] Last Admin: 02/24/25 22:08 Dose: Not Given Documented By: SHANNON Non-Admin Reason: Patient Refused Fluticasone/Vilanterol (Fluticasone/Vilanterol 100/25 Blst.W.Dev) 1 puff INHALE RDAILY [facility] Last Admin: 02/25/25 08:38 Dose: 1 puff Documented By: JESSA Glipizide (Glipizide Xl 5 Mg Tab.Er.24) 5 mg PO DAILY@0815 [facility] Last Admin: 02/25/25 08:50 Dose: 5 mg Documented By: JESSA Insulin Human Lispro (Insulin Lispro 100 Unit/Ml 3 Ml Vial) 0 unit SUBCUT TIDAC [facility]; Protocol Last Admin: 02/25/25 08:38 Dose: Not Given Documented By: JESSA Non-Admin Reason: See Note Lisinopril (Lisinopril 5 Mg Tablet) 5 mg PO DAILY [facility]; Protocol Last Admin: 02/25/25 08:26 Dose: 5 mg Documented By: JESSA Magnesium Hydroxide (Milk Of Magnesia 30 Ml Oral.Susp) 30 ml PO DAILY PRN PRN Reason: Constipation Melatonin (Melatonin 3 Mg Tablet) 6 mg PO BEDTIME [facility] Last Admin: 02/24/25 22:07 Dose: Not Given Documented By: SHANNON Non-Admin Reason: Patient Refused Metoprolol Tartrate (Metoprolol Tartrate 25 Mg Tablet) 25 mg PO BID [facility]; Protocol Last Admin: 02/25/25 08:26 Dose: 25 mg Documented By: JESSA Montelukast Sodium (Montelukast Sodium 10 Mg Tablet) 10 mg PO BEDTIME [facility] Last Admin: 02/24/25 22:07 Dose: Not Given Documented By: SHANNON Non-Admin Reason: Patient Refused Nicotine Polacrilex (Nicotine Polacrilex 2 Mg Gum) 2 mg BUCCAL Q2H PRN PRN Reason: Nicotine Cravings Olanzapine (Olanzapine Odt 10 Mg Tab.Rapdis) 10 mg TRANSLINGU BID PRN PRN Reason: severe agitation/psychosis Last Admin: 02/21/25 16:36 Dose: 10 mg Documented By: KATJA Omeprazole (Omeprazole 20 Mg Capsule.Dr) 20 mg PO DAILY@0630 [facility] Last Admin: 02/25/25 05:57 Dose: 20 mg Documented By: SHANNON Quetiapine Fumarate (Quetiapine Fumarate 25 Mg Tablet) 25 mg PO BID PRN PRN Reason: agitation Last Admin: 02/24/25 01:45 Dose: 25 mg Documented By: MARY Quetiapine Fumarate (Quetiapine Fumarate 50 Mg Tablet) 50 mg PO TID [facility] Last Admin: 02/25/25 08:26 Dose: 50 mg Documented By: JESSA Rivastigmine Tartrate (Rivastigmine Tartrate 1.5 Mg Capsule) 1.5 mg PO BID [facility] Last Admin: 02/25/25 08:26 Dose: 1.5 mg Documented By: JESSA Sertraline HCl (Sertraline Hcl 100 Mg Tablet) 100 mg PO DAILY [facility] Last Admin: 02/25/25 08:26 Dose: 100 mg Documented By: JESSA Trazodone HCl (Trazodone Hcl 50 Mg Tablet) 50 mg PO BEDTIME MRX1 PRN PRN Reason: Insomnia Last Admin: 02/24/25 01:45 Dose: 50 mg Warfarin Sodium (Warfarin Sodium 5 Mg Tablet) 5 mg PO SuTuTh@1800 [facility] On Hold: 02/25/25 08:59 Last Admin: 02/24/25 18:16 Dose: Not Given Documented By: RUBEN Non-Admin Reason: Patient Condition Contraindication Warfarin Sodium (Warfarin Sodium 2.5 Mg Tablet) 2.5 mg PO MoWeFrSa@1800 [facility] Labs 02/25/25 09:51 02/25/25 09:51 Labs: Laboratory Results - last 24 hr 02/24/25 02/25/25 02/25/25 15:59 07:23 08:07 PT 88.4 H INR 7.6 H* POC Glucose 121 H 130 H Assessment and Plan (1) Aortic valve replaced: Status: Acute (2) Current use of anticoagulant therapy: Status: Acute Plan Patient is a 74-year-old male, with a PMH of Lewy body dementia c/b agitation and visual hallucinations, COPD, T2 DM, mechanical AVR on warfarin (2-3), PPM placement, brought into hospital by family 02/06/2025 with increased agitation & hallucinations after medication change Risperdal b.i.d. to t.i.d.; bed hold in the ED pending [facility] placement; however he developed acute hypoxic respiratory failure likely in the setting of COPD exacerbation, which excess debated his agitation and combativeness and was admitted to medical floor. Medically cleared and now admitted to inpatient psych for further care and treatment. Lewy body dementia with agitation and aggression Treatment per psychiatric team Mechanical aortic valve replacement on warfarin Goal INR should be 2-3 with a mechanical AVR Daily INRs and Coumadin adjustments (Coumadin on hold) PPI to prevent ulcer Patient's INRs have been persistently elevated despite Coumadin being on hold. Is 7.6 today No evidence of active bleeding. Recently had Zoloft increase, also on atorvastatin which may contribute to increase in INRs Protein level and TSH are within normal limits. Plan to check INR in a.m. and continue to hold warfarin until INR normalizes. Type 2 diabetes Continue glipizide Insulins lispro sliding scale t.i.d. a.c. Recent A1c 6.3 Glucose readings less than 150. Hyperlipidemia/hypertension/PPM Continue atorvastatin Continue Lisinopril and Lopressor COPD/asthma overlap Continue Montelukast Breo Ellipta if able P.r.n. nebulizer treatments Recently treated with IV antibiotics, nebulizers, and a 7 day course of steroids. Thank you for allowing me to participate in the care of this patient. Will follow with you, please notify medical provider with any changes in condition or concerns. Quality Stroke Does the patient have a stroke diagnosis?: No VTE Prior VTE?: No VTE Risk Level:: Medical - low VTE Device Contraindication: Treatment Not Indicated VTE Drug Contraindication: N/A - Med Ordered
[2025-02-25 09:57] LABS: MANUAL DIFF FLAG NO
[2025-02-25 10:06] LABS: Hematocrit 36.8 % (42.0-52.0); Hemoglobin 12.3 g/dl (14.0-18.0); Imm Gran Abs Auto 0.03 X10*3/uL (0.00-0.03); Imm Gran Pct Auto 0.4 % (0.0-0.4); Lymphocytes Absolute Auto 0.8 X10*3/uL (1.2-4.9); Mean Corpuscular HGB Conc 33.4 g/dl (31.0-36.0); Mean Corpuscular Hemoglobin 33.2 pg (27.0-33.0); Mean Corpuscular Volume 99.5 fL (80.0-98.0); NRBC Abs Auto 0.000 X10*3/uL (0.0-0.012); NRBC Pct Auto 0.0 /100WBC (0.0-0.2); Platelet Count 117 X10*3/uL (160-400); Red Blood Count 3.70 X10*6/uL (4.60-5.80); White Blood Count 8.1 X10*3/uL (4.8-10.8)
[2025-02-25 10:18] LABS: Anion Gap 13 (12-20); Blood Urea Nitrogen 56 mg/dL (9-16); Calcium 9.3 mg/dL (8.4-10.2); Carbon Dioxide 20 mmol/L (22-29); Chloride 113 mmol/L (96-108); Creatinine Clr Calc Pharmacy 46.1; Estimated Glomerular Filt Rate 53; Potassium 4.2 mmol/L (3.3-5.1); Sodium 142 mmol/L (135-145)
[2025-02-25 11:19] LABS: Glucose, Whole Blood 117 mg/dL (60-115)
[2025-02-25 16:15] LABS: Glucose, Whole Blood 111 mg/dL (60-115)
[2025-02-25 20:00] VITALS: BP 104/62; PULSE 65; RESP 18; TEMP 36.8; O2SAT 95
[2025-02-25] MEDS: OLANZapine ODT 10 MG TAB.RAPDIS TRANSLINGU (22:07)
[2025-02-25 22:08] LABS: Glucose, Whole Blood 113 mg/dL (60-115)
[2025-02-25 22:27] VITALS: BP 104/62; PULSE 65
[2025-02-26 06:47] LABS: Glucose, Whole Blood 126 mg/dL (60-115)
[2025-02-26 08:00] VITALS: BP 87/52; PULSE 60; RESP 16; TEMP 36.2; O2SAT 96
--- NOTE | 2025-02-26 08:52 | P.PNPSI_ITS ---
Subjective Subjective Date of Service: 02/26/25 Reason For Visit: dementia with disturbed behaviors Subjective Notes: Conditional Voluntary Interim History: INR pending. warfarin called. Pt intermittently declining medications, this morning combative with care and more agitated. Sleeping afterwards when this news writer attempted to meet with him. Mental Status Exam Mental Status Exam Narrative: asleep when attempted to see him after being combative in the morning. Diagnostics Vital Signs (24Hr): Vital Signs - 24 hr 02/25/25 20:00 02/25/25 22:27 02/26/25 08:00 Temperature 98.2 F 97.1 F Pulse Rate 65 65 60 Respiratory Rate 18 16 Blood Pressure 104/62 104/62 87/52 L Pulse Oximetry 95 96 Oxygen Delivery Method Room Air Room Air BMI result Body Mass Index 20.9 Labs 02/25/25 09:51 02/25/25 09:51 Labs: Laboratory Results - last 48 hr 02/24/25 02/25/25 02/25/25 15:59 07:23 08:07 WBC RBC Hgb Hct MCV MCH MCHC RDW Plt Count MPV Immature Gran % (Auto) Neut % (Auto) Lymph % (Auto) Baldwin % (Auto) Eos % (Auto) Baso % (Auto) Lymph # (Auto) Baldwin # (Auto) Eos # (Auto) Baso # (Auto) Abs Immat Gran (auto) Absolute Neuts (auto) Absolute Nucleated RBC Nucleated RBC % (auto) PT 88.4 H INR 7.6 H* Sodium Potassium Chloride Carbon Dioxide Anion Gap BUN Creatinine Estim Creat Clear Calc Estimated GFR POC Glucose 121 H 130 H Random Glucose Calcium 02/25/25 02/25/25 02/25/25 09:51 11:09 16:09 WBC 8.1 RBC 3.70 L Hgb 12.3 L Hct 36.8 L MCV 99.5 H MCH 33.2 H MCHC 33.4 RDW 14.2 Plt Count 117 L D MPV 11.3 Immature Gran % (Auto) 0.4 Neut % (Auto) 79.1 H Lymph % (Auto) 9.8 L Baldwin % (Auto) 7.4 Eos % (Auto) 2.8 Baso % (Auto) 0.5 Lymph # (Auto) 0.8 L Baldwin # (Auto) 0.6 Eos # (Auto) 0.2 Baso # (Auto) 0.0 Abs Immat Gran (auto) 0.03 Absolute Neuts (auto) 6.4 Absolute Nucleated RBC 0.000 Nucleated RBC % (auto) 0.0 PT INR Sodium 142 Potassium 4.2 Chloride 113 H Carbon Dioxide 20 L Anion Gap 13 BUN 56 H Creatinine 1.31 Estim Creat Clear Calc 46.1 Estimated GFR 53 POC Glucose 117 H 111 Random Glucose 143 H Calcium 9.3 02/25/25 02/26/25 22:01 06:43 WBC RBC Hgb Hct MCV MCH MCHC RDW Plt Count MPV Immature Gran % (Auto) Neut % (Auto) Lymph % (Auto) Baldwin % (Auto) Eos % (Auto) Baso % (Auto) Lymph # (Auto) Baldwin # (Auto) Eos # (Auto) Baso # (Auto) Abs Immat Gran (auto) Absolute Neuts (auto) Absolute Nucleated RBC Nucleated RBC % (auto) PT INR Sodium Potassium Chloride Carbon Dioxide Anion Gap BUN Creatinine Estim Creat Clear Calc Estimated GFR POC Glucose 113 126 H Random Glucose Calcium Medications Medications Current Medications Acetaminophen (Acetaminophen 325 Mg Tablet) 650 mg PO Q6H PRN PRN Reason: Headache/Pain, Scale 1-10 Al Hydroxide/Mg Hydroxide (Magnesium Hydrox/Alum Hydrox 30 Ml Oral.Susp) 30 ml PO Q6H PRN PRN Reason: Heartburn/Nausea Albuterol/Ipratropium (Albuterol/Iprat 2.5/0.5mg 3 Ml Ampul.Neb) 3 ml INHALE RQ6H WHILE AWAKE PRN PRN Reason: SOB, wheeze Atorvastatin Calcium (Atorvastatin Calcium 20 Mg Tablet) 20 mg PO DAILY@1930 [facility] Last Admin: 02/25/25 22:02 Dose: 20 mg Fluticasone/Vilanterol (Fluticasone/Vilanterol 100/25 Blst.W.Dev) 1 puff INHALE RDAILY [facility] Last Admin: 02/25/25 08:38 Dose: 1 puff Glipizide (Glipizide Xl 5 Mg Tab.Er.24) 5 mg PO DAILY@0815 [facility] Last Admin: 02/25/25 08:50 Dose: 5 mg Insulin Human Lispro (Insulin Lispro 100 Unit/Ml 3 Ml Vial) 0 unit SUBCUT TIDAC [facility]; Protocol Last Admin: 02/26/25 08:35 Dose: Not Given Lisinopril (Lisinopril 5 Mg Tablet) 5 mg PO DAILY [facility]; Protocol Last Admin: 02/25/25 08:26 Dose: 5 mg Magnesium Hydroxide (Milk Of Magnesia 30 Ml Oral.Susp) 30 ml PO DAILY PRN PRN Reason: Constipation Melatonin (Melatonin 3 Mg Tablet) 6 mg PO BEDTIME [facility] Last Admin: 02/25/25 22:02 Dose: 6 mg Metoprolol Tartrate (Metoprolol Tartrate 25 Mg Tablet) 25 mg PO BID [facility]; Protocol Last Admin: 02/25/25 22:27 Dose: 25 mg Montelukast Sodium (Montelukast Sodium 10 Mg Tablet) 10 mg PO BEDTIME [facility] Last Admin: 02/25/25 22:03 Dose: 10 mg Nicotine Polacrilex (Nicotine Polacrilex 2 Mg Gum) 2 mg BUCCAL Q2H PRN PRN Reason: Nicotine Cravings Olanzapine (Olanzapine Odt 10 Mg Tab.Rapdis) 10 mg TRANSLINGU BID PRN PRN Reason: severe agitation/psychosis Last Admin: 02/25/25 22:07 Dose: 10 mg Omeprazole (Omeprazole 20 Mg Capsule.Dr) 20 mg PO DAILY@0630 [facility] Last Admin: 02/26/25 06:10 Dose: 20 mg Quetiapine Fumarate (Quetiapine Fumarate 25 Mg Tablet) 25 mg PO BID PRN PRN Reason: agitation Last Admin: 02/24/25 01:45 Dose: 25 mg Quetiapine Fumarate (Quetiapine Fumarate 50 Mg Tablet) 50 mg PO TID [facility] Last Admin: 02/25/25 22:02 Dose: 50 mg Rivastigmine Tartrate (Rivastigmine Tartrate 1.5 Mg Capsule) 1.5 mg PO BID [facility] Last Admin: 02/25/25 22:02 Dose: 1.5 mg Sertraline HCl (Sertraline Hcl 100 Mg Tablet) 100 mg PO DAILY [facility] Last Admin: 02/25/25 08:26 Dose: 100 mg Trazodone HCl (Trazodone Hcl 50 Mg Tablet) 50 mg PO BEDTIME MRX1 PRN PRN Reason: Insomnia Last Admin: 02/25/25 22:07 Dose: 50 mg Warfarin Sodium (Warfarin Sodium 5 Mg Tablet) 5 mg PO SuTuTh@1800 [facility] On Hold: 02/25/25 08:59 Last Admin: 02/24/25 18:16 Dose: Not Given Warfarin Sodium (Warfarin Sodium 2.5 Mg Tablet) 2.5 mg PO MoWeFrSa@1800 [facility] On Hold: 02/25/25 09:49 Allergies Allergies Allergy/AdvReac Type Severity Reaction Status Date / Time metformin AdvReac Intermediate Stomach Verified 02/06/25 09:52 Upset Assessment & Plan Assessment & Plan (1) Dementia with Lewy bodies: Qualifiers: Dementia severity: severe Dementia behavioral or psychological symptom: without behavioral, psychotic, or mood disturbance or anxiety Qualified Code(s): G31.83 - Neurocognitive disorder with Lewy bodies; F02.C0 - Dementia in other diseases classified elsewhere, severe, without behavioral disturbance, psychotic disturbance, mood disturbance, and anxiety Status: Acute Code(s): G31.83 - Neurocognitive disorder with Lewy bodies; F02.80 - Dementia in other diseases classified elsewhere, unspecified severity, without behavioral disturbance, psychotic disturbance, mood disturbance, and anxiety (2) Aortic valve replaced: Status: Acute Code(s): Z95.2 - Presence of prosthetic heart valve (3) Current use of anticoagulant therapy: Status: Acute Code(s): Z79.01 - intermission coordinator (current) use of anticoagulants (4) Diabetes type 2: Qualifiers: Diabetes mellitus intermission coordinator insulin use: without intermission coordinator use Diabetes mellitus complication status: with other specified complication Qualified Code(s): E11.69 - Type 2 diabetes mellitus with other specified complication Status: Acute Code(s): E11.9 - Type 2 diabetes mellitus without complications Plan Plan Mr. Vasquez is a 74 year-old male with a hx of LBD who has been presenting with visual hallucinations for over one year. He has also been presenting more recently with increase agitation and combative behaviors. He recently had medication changes done by his neurologist including adding risperidone. Unclear if risperidone increase behaviors as it appears from collateral information from his that combative behaviors have been progressively increasing. As to the visual hallucinations, these are more chronic and unclear if we will be able to eliminate them. Agree with keeping galantamine as in context of LBD may help with VH, more than higher potency antipsychotics. Discussed with goals of care- She wants code to be DNR/DNI. We discussed increasing seroquel to 50mg po TID, and will also increase sertraline to 100mg po daily as serotonin in some cases of LBD actually may reduce VH. 02/22 continue sertraline 100mg po daily. continue Seroquel 50mg po TID along with prn medications 02/23: maintain current regimen. Coumadin being held as INR 6.1 02/24: Will order PT eval to minimize further physical decompensation (was ambulating independently at home pre admission as per nursing). 02/25 INR 7.6- hospitalist informed, warfarin continues to be held. creatinine clearance decreased from 76 on 02/16 to 46 on 02/25. mostly in bed, decreased oral intake. continues to present with combative behaviors when direct care provided. aphasia, unable to obtain much information from pt. 02/26 continue tx. continue tx. monitor INR, it is possible sertraline having some effect. hospitalist monitoring. His BP is low, oral intake has decreased. encouraged hydration. Reason for continued inpatient stay Substantial Risk for: inability to function Time Spent With Patient Time: Total time managing care of this patient today ____ minutes.
[2025-02-26] MEDS: Fluticasone/Vilanterol 100/25 BLST.W.DEV 1 PUFF INHALE (08:58)
[2025-02-26 11:30] LABS: Glucose, Whole Blood 135 mg/dL (60-115)
--- NOTE | 2025-02-26 16:12 | HO.WOUND ---
Wound Consult: Initial 74yr old?male admitted to [facility] on 02/20/25- See progress notes and H&P for detailed history.? Wound consult placed for multiple skin tears.? Patient was combative at bedside with staff assist able to assess skin tears. He is noted to be thrashing his arms and legs likely contributing to the several scans and bruising noted. He was incontinent of urine at bedside 0 brief in use - Incontinence care provided and barrier cream used. Difficult to assess skin as patient was refusing turns and repositioning and is very strong and resistant to movement while at bedside. Recommend frequent incontinence care and barrier cream use. Right hand and Left elbow are noted for skin tears - foam dressing in place without xeroform causing traumatic removal. Unable to use gauze wraps per unit standard recommend continuing to use foam dressing but with xeroform layer over wound bed to minimize trauma with changing. Recommendations: 1. Turn and Reposition every 2 hours and as needed for patient comfort.? Use pillows or wedges to support off loading positions. 2. Off Load all bony prominences with use of pillows and heel boots if needed.? Apply Preventative foams where needed. ? 3. Monitor for incontinence and moisture control, use barrier creams when needed for prevention and treatment. 4. Provide adequate and supplemental nutrition.? 5.When applicable maintain blood glucose levels per Providers order. Skin Tears - Per Protocol ?- Cleanse with normal saline, pat dry. ?Apply Xeroform secure with Abd pads, gauze wrap and tape if gauze wrap not allowed per unit standard may use foam dressing. Change Daily. ?Avoid Adhesive application to skin - when necessary, apply skin prep prior.? Buttock - Off Load Pressure with Q2 hr turns and use of pillows - Cleanse with PH balance spray or wipes, pat dry. ?Apply thin layer of barrier cream to affected area.? Apply twice daily and Reapply thin layer PRN after each episode of incontinence. Re-consult wound care Nurse for wound deterioration or wound changes.
[2025-02-26 16:30] LABS: Glucose, Whole Blood 136 mg/dL (60-115)
[2025-02-26 20:00] VITALS: BP 98/52; PULSE 65; RESP 16; TEMP 37.1; O2SAT 95
[2025-02-26 20:27] LABS: Glucose, Whole Blood 124 mg/dL (60-115)
[2025-02-26 21:55] VITALS: BP 98/51; PULSE 65
[2025-02-27 08:38] LABS: Alanine Aminotransferase 18 U/L (0-40); Albumin Level 3.8 g/dL (3.5-5.0); Alkaline Phosphatase 125 U/L (39-117); Anion Gap 13 (12-20); Aspartate Amino Transferase 28 U/L (5-37); Blood Urea Nitrogen 66 mg/dL (9-16); Calcium 9.5 mg/dL (8.4-10.2); Carbon Dioxide 21 mmol/L (22-29); Chloride 113 mmol/L (96-108); Creatinine Clr Calc Pharmacy 41.1; Estimated Glomerular Filt Rate 47; Potassium 4.0 mmol/L (3.3-5.1); Sodium 143 mmol/L (135-145); Total Protein 6.7 g/dL (6.5-8.0)
[2025-02-27 08:43] LABS: Prothrombin Time 104.6 SEC (11.2-13.5)
[2025-02-27 08:48] LABS: INTERNATIONAL NORM RATIO 9.1 (0.9-1.1)
[2025-02-27 09:17] LABS: MANUAL DIFF FLAG NO
--- NOTE | 2025-02-27 09:24 | HO.PM.IMPN ---
Subjective Subjective Date of Service: 02/27/25 Interval History: Patient was seen for continued elevated INR and acute kidney injury. Patient's baseline creatinine 1-1.2. Creatinine increased to 1.47. His warfarin has been on hold but despite this today his INR is 9.1. Patient has been combative with care there were has some bruising noted to bilateral upper extremities. No other evidence of bleeding. On exam he is in no apparent distress, answers questions although nonsensical. Has a 1 on 1 sitter at his bedside. Review of Systems Limited due to cognition Physical Exam Exam: Exam: CONST: Alert and confused in NAD. Well nourished. Eyes closed, opens when you ask him, talking nonsensical. Smiling at times. HEENT: Normocephalic, atraumatic RESP: Respiratory rate even and regular. Lung sounds clear HEART: Heart rate regular rate and rhythm GI: Abdomen is soft, nontender positive bowel sounds x4 : Decline SKIN: Bilateral lower legs with venous stasis changes, left elbow with intact dressing, right hand with intact dressing. Multiple bruises on arms due to combative behavior and fragile skin. NEURO: Moves all extremities, Speech clear PSYCH: Answers some questions Vital Signs: Vital Signs: Last Vital Signs Temp 98.8 F 02/26/25 20:00 Pulse 65 02/26/25 21:55 Resp 16 02/26/25 20:00 BP 98/51 L 02/26/25 21:55 Pulse Ox 95 02/26/25 20:00 O2 Del Method Room Air 02/26/25 20:00 BMI result Body Mass Index 20.9 Objective Data Active Medications Acetaminophen (Acetaminophen 325 Mg Tablet) 650 mg PO Q6H PRN PRN Reason: Headache/Pain, Scale 1-10 Al Hydroxide/Mg Hydroxide (Magnesium Hydrox/Alum Hydrox 30 Ml Oral.Susp) 30 ml PO Q6H PRN PRN Reason: Heartburn/Nausea Albuterol/Ipratropium (Albuterol/Iprat 2.5/0.5mg 3 Ml Ampul.Neb) 3 ml INHALE RQ6H WHILE AWAKE PRN PRN Reason: SOB, wheeze Atorvastatin Calcium (Atorvastatin Calcium 20 Mg Tablet) 20 mg PO DAILY@1930 [facility] Last Admin: 02/26/25 21:57 Dose: 20 mg Documented By: MUSGROP Fluticasone/Vilanterol (Fluticasone/Vilanterol 100/25 Blst.W.Dev) 1 puff INHALE RDAILY [facility] Last Admin: 02/26/25 08:58 Dose: 1 puff Documented By: RUBEN Glipizide (Glipizide Xl 5 Mg Tab.Er.24) 5 mg PO DAILY@0815 [facility] Last Admin: 02/26/25 08:58 Dose: 5 mg Documented By: RUBEN Sodium Chloride (Ns) 1,000 mls @ 75 mls/hr IVCONT .[id number] [facility] Insulin Human Lispro (Insulin Lispro 100 Unit/Ml 3 Ml Vial) 0 unit SUBCUT TIDAC [facility]; Protocol Last Admin: 02/27/25 08:57 Dose: Not Given Documented By: ILANA Non-Admin Reason: Patient Refused Lisinopril (Lisinopril 5 Mg Tablet) 5 mg PO DAILY [facility]; Protocol On Hold: 02/27/25 09:07 Last Admin: 02/26/25 08:55 Dose: 5 mg Documented By: RUBEN Magnesium Hydroxide (Milk Of Magnesia 30 Ml Oral.Susp) 30 ml PO DAILY PRN PRN Reason: Constipation Melatonin (Melatonin 3 Mg Tablet) 6 mg PO BEDTIME [facility] Last Admin: 02/26/25 21:55 Dose: 6 mg Documented By: MINGO Metoprolol Tartrate (Metoprolol Tartrate 25 Mg Tablet) 25 mg PO BID [facility]; Protocol Last Admin: 02/26/25 21:55 Dose: 25 mg Documented By: MINGO Montelukast Sodium (Montelukast Sodium 10 Mg Tablet) 10 mg PO BEDTIME [facility] Last Admin: 02/26/25 21:56 Dose: 10 mg Documented By: MINGO Nicotine Polacrilex (Nicotine Polacrilex 2 Mg Gum) 2 mg BUCCAL Q2H PRN PRN Reason: Nicotine Cravings Olanzapine (Olanzapine Odt 10 Mg Tab.Rapdis) 10 mg TRANSLINGU BID PRN PRN Reason: severe agitation/psychosis Last Admin: 02/25/25 22:07 Dose: 10 mg Documented By: SHANNON Omeprazole (Omeprazole 20 Mg Capsule.Dr) 20 mg PO DAILY@0630 [facility] Last Admin: 02/27/25 06:08 Dose: 20 mg Documented By: MINGO Quetiapine Fumarate (Quetiapine Fumarate 25 Mg Tablet) 25 mg PO BID PRN PRN Reason: agitation Last Admin: 02/24/25 01:45 Dose: 25 mg Documented By: MARY Quetiapine Fumarate (Quetiapine Fumarate 50 Mg Tablet) 50 mg PO TID [facility] Last Admin: 02/26/25 21:56 Dose: 50 mg Documented By: MINGO Rivastigmine Tartrate (Rivastigmine Tartrate 1.5 Mg Capsule) 1.5 mg PO BID [facility] Last Admin: 02/26/25 21:55 Dose: 1.5 mg Documented By: MINGO Sertraline HCl (Sertraline Hcl 100 Mg Tablet) 100 mg PO DAILY [facility] Last Admin: 02/26/25 08:55 Dose: 100 mg Documented By: RUBEN Trazodone HCl (Trazodone Hcl 50 Mg Tablet) 50 mg PO BEDTIME MRX1 PRN PRN Reason: Insomnia Last Admin: 02/25/25 22:07 Dose: 50 mg Documented By: SHANNON Warfarin Sodium (Warfarin Sodium 5 Mg Tablet) 5 mg PO SuTuTh@1800 [facility] On Hold: 02/25/25 08:59 Last Admin: 02/24/25 18:16 Dose: Not Given Documented By: RUBEN Non-Admin Reason: Patient Condition Contraindication Warfarin Sodium (Warfarin Sodium 2.5 Mg Tablet) 2.5 mg PO MoWeFrSa@1800 [facility] On Hold: 02/25/25 09:49 Labs 02/27/25 08:07 02/27/25 07:41 Labs: Laboratory Results - last 24 hr 02/26/25 02/26/25 02/26/25 08:24 11:24 16:26 Hold Purple Top PT Cancelled INR Cancelled Anion Gap Estim Creat Clear Calc Estimated GFR POC Glucose 135 H 136 H Random Glucose Calcium Total Bilirubin AST ALT Alkaline Phosphatase Total Protein Albumin 02/26/25 02/27/25 02/27/25 20:19 07:41 08:07 Hold Purple Top SEE NOTE PT 104.6 H INR 9.1 H* Anion Gap 13 Estim Creat Clear Calc 41.1 Estimated GFR 47 POC Glucose 124 H Random Glucose 146 H Calcium 9.5 Total Bilirubin 1.0 AST 28 ALT 18 Alkaline Phosphatase 125 H Total Protein 6.7 Albumin 3.8 Assessment and Plan (1) Aortic valve replaced: Status: Acute (2) Current use of anticoagulant therapy: Status: Acute Plan Patient is a 74-year-old male, with a PMH of Lewy body dementia c/b agitation and visual hallucinations, COPD, T2 DM, mechanical AVR on warfarin (2-3), PPM placement, brought into hospital by family 02/06/2025 with increased agitation & hallucinations after medication change Risperdal b.i.d. to t.i.d.; bed hold in the ED pending [facility]-psych placement; however he developed acute hypoxic respiratory failure likely in the setting of COPD exacerbation, which excess debated his agitation and combativeness and was admitted to medical floor. Medically cleared and now admitted to inpatient psych for further care and treatment. Lewy body dementia with agitation and aggression Treatment per psychiatric team ROSEMARY Hold lisinopril, start normal saline. Nephrology consulted, appreciate recommendations Avoid nephrotoxic agents AURA/ARB contrast dyes Metoprolol and lisinopril on hold. Repeat labs in a.m. Mechanical aortic valve replacement on warfarin/hypercoagulable state Goal INR should be 2-3 with a mechanical AVR Daily INRs and Coumadin adjustments (Coumadin on hold) INR continues to be elevated despite not receiving warfarin 9.1 today PPI to prevent ulcer No evidence of active bleeding. Recently had Zoloft increase, also on atorvastatin which may contribute to increase in INRs Protein level and TSH are within normal limits. Anemia stable, no leukocytes, fibrinogen 438 within normal limits D-dimer less than 150, LFTs within normal limits One time dose of vitamin K 2.5 mg Plan to check INR in a.m. and continue to hold warfarin until INR normalizes. Type 2 diabetes Continue glipizide Insulins lispro sliding scale t.i.d. a.c. Recent A1c 6.3 Glucose readings less than 150. Hyperlipidemia/hypertension/PPM Continue atorvastatin Hold Lisinopril and Lopressor due to ROSEMARY COPD/asthma overlap Continue Montelukast Breo Ellipta if able P.r.n. nebulizer treatments Recently treated with IV antibiotics, nebulizers, and a 7 day course of steroids. Thank you for allowing me to participate in the care of this patient. Will follow with you, please notify medical provider with any changes in condition or concerns. Quality Stroke Does the patient have a stroke diagnosis?: No VTE Prior VTE?: No VTE Risk Level:: Medical - low VTE Device Contraindication: Treatment Not Indicated VTE Drug Contraindication: N/A - Med Ordered
[2025-02-27 09:25] LABS: D Dimer High Sensitivity < 150 NG/ML; Fibrinogen 438 MG/DL (259-690)
[2025-02-27 09:25] LABS: Hematocrit 38.1 % (42.0-52.0); Hemoglobin 12.8 g/dl (14.0-18.0); Imm Gran Abs Auto 0.01 X10*3/uL (0.00-0.03); Imm Gran Pct Auto 0.1 % (0.0-0.4); Lymphocytes Absolute Auto 0.8 X10*3/uL (1.2-4.9); Mean Corpuscular HGB Conc 33.6 g/dl (31.0-36.0); Mean Corpuscular Hemoglobin 33.8 pg (27.0-33.0); Mean Corpuscular Volume 100.5 fL (80.0-98.0); NRBC Abs Auto 0.000 X10*3/uL (0.0-0.012); NRBC Pct Auto 0.0 /100WBC (0.0-0.2); Platelet Count 130 X10*3/uL (160-400); Red Blood Count 3.79 X10*6/uL (4.60-5.80); White Blood Count 7.3 X10*3/uL (4.8-10.8)
[2025-02-27] MEDS: Phytonadione (Vit K1) Oral 10 MG/ML AMPUL 2.5 MG PO (10:49)
[2025-02-27 11:03] LABS: Glucose, Whole Blood 140 mg/dL (60-115)
--- NOTE | 2025-02-27 11:59 | PM.CNNEP ---
History of Present Illness Reason for Consult Consult date: 02/27/25 Chief Complaint Chief complaint: dementia with disturbed behaviors History of Present Illness Narrative: 74-year-old gentleman with PMH of significant liver body dementia, asthma, diabetes mellitus, hypertension is admitted to [facility] due to behavioral issues. Patient has been combative and agitated because of which he is not eating and drinking well. His baseline creatinine is around 1-1.2, today it increased to 1.47 so renal is consulted. Review of Systems Review of Systems Unable to obtain due to confusion [facility] Past Medical History Medical History Parkinsonism, secondary Dementia with Lewy bodies Cerebral microvascular disease Cerebral atrophy Dementia Morbid obesity Cough Asthma-COPD overlap syndrome Steroid dependence COPD (chronic obstructive pulmonary disease) Eosinophilic asthma Family History Family History Mother No problems noted. Father No problems noted. Surgical History Surgical History S/P cardiac pacemaker procedure Social History Social History Household Members: Spouse Housing: House Do you presently have visiting nurse or other home services: No Comment: 1:1 Patient Tobacco Use Status: Former Tobacco user Tobacco use type: Cigarette Smoked in Last 30 Days: No e-Cigarette/Vaping Use: Former Use Patient Interested in Nicotine Replacement: No Patient Given Instructions on How to Stop Smoking: No Second Hand Smoke Exposure: No Currently Displaying Signs/Symptoms of Drug Intoxication Withdrawal: No Spiritual Healthcare Practices: patient unable to participate d/t lewy body dementia [facility] Practices: patient unable to participate d/t lewy body dementia Cultural Healthcare Practices: patient unable to participate d/t lewy body dementia Advance Directives: No Advance Directives Information Provided: Yes Do you have thoughts of harming others: None Do you have a plan to hurt others: No Plan Recently lost weight without trying: Unsure Eating poorly because of decreased appetite: No Nutrition Risks: No Nutritional Risk Poor oral hygiene: No service: No Current occupational status: retired Current occupational exposures/hazards: No Sexual orientation: Straight/Heterosexual Cognitive needs: Yes (cane) Hearing needs: No Vision needs: Yes (rx galsses) Meds Allergies Allergy/AdvReac Type Severity Reaction Status Date / Time metformin AdvReac Intermediate Stomach Verified 02/06/25 09:52 Upset Active Medications: Current Medications Acetaminophen (Acetaminophen 325 Mg Tablet) 650 mg PO Q6H PRN PRN Reason: Headache/Pain, Scale 1-10 Al Hydroxide/Mg Hydroxide (Magnesium Hydrox/Alum Hydrox 30 Ml Oral.Susp) 30 ml PO Q6H PRN PRN Reason: Heartburn/Nausea Albuterol/Ipratropium (Albuterol/Iprat 2.5/0.5mg 3 Ml Ampul.Neb) 3 ml INHALE RQ6H WHILE AWAKE PRN PRN Reason: SOB, wheeze Atorvastatin Calcium (Atorvastatin Calcium 20 Mg Tablet) 20 mg PO DAILY@1930 [facility] Last Admin: 02/26/25 21:57 Dose: 20 mg Fluticasone/Vilanterol (Fluticasone/Vilanterol 100/25 Blst.W.Dev) 1 puff INHALE RDAILY [facility] Last Admin: 02/27/25 10:58 Dose: Not Given Glipizide (Glipizide Xl 5 Mg Tab.Er.24) 5 mg PO DAILY@0815 [facility] Last Admin: 02/27/25 10:58 Dose: Not Given Sodium Chloride (Ns) 1,000 mls @ 150 mls/hr IVCONT .Q6H40M [facility] Last Admin: 02/27/25 10:32 Dose: 75 mls/hr Insulin Human Lispro (Insulin Lispro 100 Unit/Ml 3 Ml Vial) 0 unit SUBCUT TIDAC [facility]; Protocol Last Admin: 02/27/25 11:45 Dose: Not Given Lisinopril (Lisinopril 5 Mg Tablet) 5 mg PO DAILY [facility]; Protocol On Hold: 02/27/25 09:07 Last Admin: 02/27/25 10:58 Dose: Not Given Magnesium Hydroxide (Milk Of Magnesia 30 Ml Oral.Susp) 30 ml PO DAILY PRN PRN Reason: Constipation Melatonin (Melatonin 3 Mg Tablet) 6 mg PO BEDTIME [facility] Last Admin: 02/26/25 21:55 Dose: 6 mg Metoprolol Tartrate (Metoprolol Tartrate 25 Mg Tablet) 25 mg PO BID [facility]; Protocol On Hold: 02/27/25 10:21 Last Admin: 02/27/25 10:38 Dose: Not Given Montelukast Sodium (Montelukast Sodium 10 Mg Tablet) 10 mg PO BEDTIME [facility] Last Admin: 02/26/25 21:56 Dose: 10 mg Nicotine Polacrilex (Nicotine Polacrilex 2 Mg Gum) 2 mg BUCCAL Q2H PRN PRN Reason: Nicotine Cravings Olanzapine (Olanzapine Odt 10 Mg Tab.Rapdis) 10 mg TRANSLINGU BID PRN PRN Reason: severe agitation/psychosis Last Admin: 02/25/25 22:07 Dose: 10 mg Omeprazole (Omeprazole 20 Mg Capsule.Dr) 20 mg PO DAILY@0630 [facility] Last Admin: 02/27/25 06:08 Dose: 20 mg Quetiapine Fumarate (Quetiapine Fumarate 25 Mg Tablet) 25 mg PO BID PRN PRN Reason: agitation Last Admin: 02/24/25 01:45 Dose: 25 mg Quetiapine Fumarate (Quetiapine Fumarate 50 Mg Tablet) 50 mg PO TID [facility] Last Admin: 02/27/25 10:37 Dose: 50 mg Rivastigmine Tartrate (Rivastigmine Tartrate 1.5 Mg Capsule) 1.5 mg PO BID [facility] Last Admin: 02/27/25 10:37 Dose: 1.5 mg Sertraline HCl (Sertraline Hcl 100 Mg Tablet) 100 mg PO DAILY [facility] Last Admin: 02/27/25 10:37 Dose: 100 mg Trazodone HCl (Trazodone Hcl 50 Mg Tablet) 50 mg PO BEDTIME MRX1 PRN PRN Reason: Insomnia Last Admin: 02/25/25 22:07 Dose: 50 mg Warfarin Sodium (Warfarin Sodium 5 Mg Tablet) 5 mg PO SuTuTh@1800 [facility] On Hold: 02/25/25 08:59 Last Admin: 02/24/25 18:16 Dose: Not Given Warfarin Sodium (Warfarin Sodium 2.5 Mg Tablet) 2.5 mg PO MoWeFrSa@1800 [facility] On Hold: 02/25/25 09:49 Home Medications ?Medication ?Instructions ?Recorded ?Confirmed ?Last Taken ?Type atorvastatin 20 mg tablet 20 mg PO DAILY@1930 02/20/20 02/20/25 02/05/25 History acetaminophen 500 mg tablet 1,000 mg PO DAILY PRN Pain 09/16/23 02/20/25 01/18/25 History 1000 mg fluticasone 250 mcg-salmeterol 50 1 ea inhalation DAILY for asthma 01/20/25 02/20/25 02/05/25 History mcg/dose blistr powdr for inhalation (Wixela Inhub) insulin glargine 100 unit/mL (3 10 unit subcut DAILY PRN 01/20/25 02/20/25 Unknown History mL) subcutaneous pen (Basaglar Hyperglycemia KwikPen U-100 Insulin) lisinopril 5 mg tablet 5 mg PO QAM 01/20/25 02/20/25 02/05/25 History warfarin 5 mg tablet 5 mg PO SUTUTHSA 01/20/25 02/20/25 02/05/25 History warfarin 2.5 mg tablet 2.5 mg PO MOWEFR 02/06/25 02/20/25 02/04/25 History Physical Exam Vital Signs: Last Vital Signs Temp 98.8 F 02/26/25 20:00 Pulse 65 02/26/25 21:55 Resp 16 02/26/25 20:00 BP 98/51 L 02/26/25 21:55 Pulse Ox 95 02/26/25 20:00 O2 Del Method Room Air 02/26/25 20:00 BMI result Body Mass Index 20.9 General: not in any acute distress, chronic ill appearing Nutritional Appearance: Okay nourished and underweight Eyes: appearance normal, both eyes and all related structures; Alignment and Position: alignment normal and position normal Neck: No lymphadenopathy, no thyromegaly Resp: bilateral air entry equal, no added sounds present Cardio: Regular rate, regular rhythm; Heart sounds: S1 normal heart sound present and S2 normal heart sound present GI: soft, nontender, no guarding, no hepatosplenomegaly : bladder normal to inspection, bladder normal to palpation, no renal angle tenderness Skin: no rashes or lesions noted and elasticity normal Neuro: alert, significant confusion present, moves all extremities Results Lab Results 02/27/25 08:07 02/27/25 07:41 Lab results: Chemistry 02/25/25 02/27/25 09:51 07:41 Sodium 142 143 Potassium 4.2 4.0 Carbon Dioxide 20 L 21 L BUN 56 H 66 H Creatinine 1.31 1.47 H Calcium 9.3 9.5 Hematology 02/25/25 02/27/25 09:51 08:07 WBC 8.1 7.3 Hgb 12.3 L 12.8 L Plt Count 117 L D 130 L Assessment and Plan (1) Acute kidney injury: Status: Acute (2) Hypertension: Status: Acute Plan Acute kidney injury: Possibly secondary to poor oral intake leading to hypovolemia and poor perfusion of the kidneys We will start the IV fluids normal saline at 150 cc/hour Continue with holding lisinopril We will closely monitor renal function Avoid nephrotoxic agents, AURA/ARB, contrasts Hypertension: Blood pressures on lower side We will withhold metoprolol along with lisinopril When the blood pressure improves try avoiding lisinopril because he has a high-risk for ROSEMARY given poor oral intake and volume depletion Procedures Date of Service Date of Service: 02/27/25
--- NOTE | 2025-02-27 13:15 | MHC.CLN ---
F/U PATIENT WITH POOR PO INTAKE. DIET RX: REGULAR. ADDING ENSURE TID TO PROMOTE NUTRITIONAL INTAKE. SUPPLEMENT PROVIDES 1050 KCALS, 60 G PROTEIN. CONTINUE TO MONITOR FOR PO INTAKE.
--- NOTE | 2025-02-27 16:06 | P.PNPSI_ITS ---
Subjective Subjective Date of Service: 02/27/25 Reason For Visit: dementia with disturbed behaviors Subjective Notes: Conditional Voluntary Healthcare Proxy: Yes Interim History: INR 9, hospitalist saw pt, started on Vit K. He had IV fluids, as limited oral intake and signs of dehydration. 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 agrees to give IV fluids, but in agreement that if he pulls it out, not to reinsert. Plan to follow up with labs tomorrow AM. Diagnostics Vital Signs (24Hr): Vital Signs - 24 hr 02/26/25 20:00 02/26/25 21:55 Temperature 98.8 F Pulse Rate 65 65 Respiratory Rate 16 Blood Pressure 98/52 L 98/51 L Pulse Oximetry 95 Oxygen Delivery Method Room Air BMI result Body Mass Index 20.9 Labs 02/27/25 08:07 02/28/25 07:31 Labs: Laboratory Results - last 48 hr 02/25/25 02/25/25 02/26/25 16:09 22:01 06:43 WBC RBC Hgb Hct MCV MCH MCHC RDW Plt Count MPV Immature Gran % (Auto) Neut % (Auto) Lymph % (Auto) [place] % (Auto) Eos % (Auto) Baso % (Auto) Lymph # (Auto) [place] # (Auto) Eos # (Auto) Baso # (Auto) Abs Immat Gran (auto) Absolute Neuts (auto) Absolute Nucleated RBC Nucleated RBC % (auto) Hold Purple Top PT INR Fibrinogen D-Dimer High Sensitivty Sodium Potassium Chloride Carbon Dioxide Anion Gap BUN Creatinine Estim Creat Clear Calc Estimated GFR POC Glucose 111 113 126 H Random Glucose Calcium Total Bilirubin Direct Bilirubin AST ALT Alkaline Phosphatase Total Protein Albumin 02/26/25 02/26/25 02/26/25 08:24 11:24 16:26 WBC RBC Hgb Hct MCV MCH MCHC RDW Plt Count MPV Immature Gran % (Auto) Neut % (Auto) Lymph % (Auto) [place] % (Auto) Eos % (Auto) Baso % (Auto) Lymph # (Auto) [place] # (Auto) Eos # (Auto) Baso # (Auto) Abs Immat Gran (auto) Absolute Neuts (auto) Absolute Nucleated RBC Nucleated RBC % (auto) Hold Purple Top PT Cancelled INR Cancelled Fibrinogen D-Dimer High Sensitivty Sodium Potassium Chloride Carbon Dioxide Anion Gap BUN Creatinine Estim Creat Clear Calc Estimated GFR POC Glucose 135 H 136 H Random Glucose Calcium Total Bilirubin Direct Bilirubin AST ALT Alkaline Phosphatase Total Protein Albumin 02/26/25 02/27/25 02/27/25 20:19 07:41 08:07 WBC 7.3 RBC 3.79 L Hgb 12.8 L Hct 38.1 L MCV 100.5 H MCH 33.8 H MCHC 33.6 RDW 14.3 Plt Count 130 L MPV 11.9 Immature Gran % (Auto) 0.1 Neut % (Auto) 76.1 H Lymph % (Auto) 11.0 L [place] % (Auto) 9.1 Eos % (Auto) 3.0 Baso % (Auto) 0.7 Lymph # (Auto) 0.8 L [place] # (Auto) 0.7 Eos # (Auto) 0.2 Baso # (Auto) 0.1 Abs Immat Gran (auto) 0.01 Absolute Neuts (auto) 5.6 Absolute Nucleated RBC 0.000 Nucleated RBC % (auto) 0.0 Hold Purple Top SEE NOTE PT 104.6 H INR 9.1 H* Fibrinogen 438 D-Dimer High Sensitivty < 150 Sodium 143 Potassium 4.0 Chloride 113 H Carbon Dioxide 21 L Anion Gap 13 BUN 66 H Creatinine 1.47 H Estim Creat Clear Calc 41.1 Estimated GFR 47 POC Glucose 124 H Random Glucose 146 H Calcium 9.5 Total Bilirubin 1.0 Direct Bilirubin 0.4 AST 28 ALT 18 Alkaline Phosphatase 125 H Total Protein 6.7 Albumin 3.8 02/27/25 10:58 WBC RBC Hgb Hct MCV MCH MCHC RDW Plt Count MPV Immature Gran % (Auto) Neut % (Auto) Lymph % (Auto) [place] % (Auto) Eos % (Auto) Baso % (Auto) Lymph # (Auto) [place] # (Auto) Eos # (Auto) Baso # (Auto) Abs Immat Gran (auto) Absolute Neuts (auto) Absolute Nucleated RBC Nucleated RBC % (auto) Hold Purple Top PT INR Fibrinogen D-Dimer High Sensitivty Sodium Potassium Chloride Carbon Dioxide Anion Gap BUN Creatinine Estim Creat Clear Calc Estimated GFR POC Glucose 140 H Random Glucose Calcium Total Bilirubin Direct Bilirubin AST ALT Alkaline Phosphatase Total Protein Albumin Medications Medications Current Medications Acetaminophen (Acetaminophen 325 Mg Tablet) 650 mg PO Q6H PRN PRN Reason: Headache/Pain, Scale 1-10 Al Hydroxide/Mg Hydroxide (Magnesium Hydrox/Alum Hydrox 30 Ml Oral.Susp) 30 ml PO Q6H PRN PRN Reason: Heartburn/Nausea Atorvastatin Calcium (Atorvastatin Calcium 20 Mg Tablet) 20 mg PO DAILY@1930 [facility] Last Admin: 02/26/25 21:57 Dose: 20 mg Fluticasone/Vilanterol (Fluticasone/Vilanterol 100/25 Blst.W.Dev) 1 puff INHALE RDAILY [facility] Last Admin: 02/27/25 10:58 Dose: Not Given Glipizide (Glipizide Xl 5 Mg Tab.Er.24) 5 mg PO DAILY@0815 [facility] Last Admin: 02/27/25 10:58 Dose: Not Given Sodium Chloride (Ns) 1,000 mls @ 150 mls/hr IVCONT .Q6H40M [facility] Last Infusion: 02/27/25 15:16 Dose: Infused Insulin Human Lispro (Insulin Lispro 100 Unit/Ml 3 Ml Vial) 0 unit SUBCUT TIDAC [facility]; Protocol Last Admin: 02/27/25 11:45 Dose: Not Given Lisinopril (Lisinopril 5 Mg Tablet) 5 mg PO DAILY [facility]; Protocol On Hold: 02/27/25 09:07 Last Admin: 02/27/25 10:58 Dose: Not Given Magnesium Hydroxide (Milk Of Magnesia 30 Ml Oral.Susp) 30 ml PO DAILY PRN PRN Reason: Constipation Melatonin (Melatonin 3 Mg Tablet) 6 mg PO BEDTIME [facility] Last Admin: 02/26/25 21:55 Dose: 6 mg Metoprolol Tartrate (Metoprolol Tartrate 25 Mg Tablet) 25 mg PO BID [facility]; Protocol On Hold: 02/27/25 10:21 Last Admin: 02/27/25 10:38 Dose: Not Given Montelukast Sodium (Montelukast Sodium 10 Mg Tablet) 10 mg PO BEDTIME [facility] Last Admin: 02/26/25 21:56 Dose: 10 mg Nicotine Polacrilex (Nicotine Polacrilex 2 Mg Gum) 2 mg BUCCAL Q2H PRN PRN Reason: Nicotine Cravings Olanzapine (Olanzapine Odt 10 Mg Tab.Rapdis) 10 mg TRANSLINGU BID PRN PRN Reason: severe agitation/psychosis Last Admin: 02/25/25 22:07 Dose: 10 mg Omeprazole (Omeprazole 20 Mg Capsule.Dr) 20 mg PO DAILY@0630 [facility] Last Admin: 02/27/25 06:08 Dose: 20 mg Quetiapine Fumarate (Quetiapine Fumarate 25 Mg Tablet) 25 mg PO BID PRN PRN Reason: agitation Last Admin: 02/24/25 01:45 Dose: 25 mg Quetiapine Fumarate (Quetiapine Fumarate 50 Mg Tablet) 50 mg PO TID [facility] Last Admin: 02/27/25 14:53 Dose: 50 mg Rivastigmine Tartrate (Rivastigmine Tartrate 1.5 Mg Capsule) 1.5 mg PO BID [facility] Last Admin: 02/27/25 10:37 Dose: 1.5 mg Sertraline HCl (Sertraline Hcl 100 Mg Tablet) 100 mg PO DAILY [facility] Last Admin: 02/27/25 10:37 Dose: 100 mg Trazodone HCl (Trazodone Hcl 50 Mg Tablet) 50 mg PO BEDTIME MRX1 PRN PRN Reason: Insomnia Last Admin: 02/25/25 22:07 Dose: 50 mg Warfarin Sodium (Warfarin Sodium 5 Mg Tablet) 5 mg PO SuTuTh@1800 [facility] On Hold: 02/25/25 08:59 Last Admin: 02/24/25 18:16 Dose: Not Given Warfarin Sodium (Warfarin Sodium 2.5 Mg Tablet) 2.5 mg PO MoWeFrSa@1800 [facility] On Hold: 02/25/25 09:49 Allergies Allergies Allergy/AdvReac Type Severity Reaction Status Date / Time metformin AdvReac Intermediate Stomach Verified 02/06/25 09:52 Upset Assessment & Plan Assessment & Plan (1) Dementia with Lewy bodies: Qualifiers: Dementia severity: severe Dementia behavioral or psychological symptom: without behavioral, psychotic, or mood disturbance or anxiety Qualified Code(s): G31.83 - Neurocognitive disorder with Lewy bodies; F02.C0 - Dementia in other diseases classified elsewhere, severe, without behavioral disturbance, psychotic disturbance, mood disturbance, and anxiety Status: Acute Code(s): G31.83 - Neurocognitive disorder with Lewy bodies; F02.80 - Dementia in other diseases classified elsewhere, unspecified severity, without behavioral disturbance, psychotic disturbance, mood disturbance, and anxiety (2) Aortic valve replaced: Status: Acute Code(s): Z95.2 - Presence of prosthetic heart valve (3) Current use of anticoagulant therapy: Status: Acute Code(s): Z79.01 - halfway (current) use of anticoagulants (4) Diabetes type 2: Qualifiers: Diabetes mellitus fpc insulin use: 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 Vasquez is a 74 year-old male with a hx of LBD who has been presenting with visual hallucinations for over one year. He has also been presenting more recently with increase agitation and combative behaviors. He recently had medication changes done by his neurologist including adding risperidone. Unclear if risperidone increase behaviors as it appears from collateral information from his that combative behaviors have been progressively increasing. As to the visual hallucinations, these are more chronic and unclear if we will be able to eliminate them. Agree with keeping galantamine as in context of LBD may help with VH, more than higher potency antipsychotics. Discussed with goals of care- She wants code to be DNR/DNI. We discussed increasing seroquel to 50mg po TID, and will also increase sertraline to 100mg po daily as serotonin in some cases of LBD actually may reduce VH. 02/22 continue sertraline 100mg po daily. continue Seroquel 50mg po TID along with prn medications 02/23: maintain current regimen. Coumadin being held as INR 6.1 02/24: Will order PT eval to minimize further physical decompensation (was ambulating independently at home pre admission as per nursing). 02/25 INR 7.6- hospitalist informed, warfarin continues to be held. creatinine clearance decreased from 76 on 02/16 to 46 on 02/25. mostly in bed, decreased oral intake. continues to present with combative behaviors when direct care provided. aphasia, unable to obtain much information from pt. 02/26 continue tx. continue tx. monitor INR, it is possible sertraline having some effect. hospitalist monitoring. His BP is low, oral intake has decreased. encouraged hydration. 02/27 INR 9 elevated despite holding dose of warfarin. hospitalist following, given Vit k. 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 He allowed insertion of IV without combative behaviors and allowed direct care also without aggression. He did later pulled IV. Reason for continued inpatient stay Substantial Risk for: inability to function Time Spent With Patient Time: Total time managing care of this patient today ____ minutes.
[2025-02-27 16:11] LABS: Glucose, Whole Blood 134 mg/dL (60-115)
[2025-02-27 20:00] VITALS: BP 129/59; PULSE 63; RESP 16; TEMP 36.4; O2SAT 96
[2025-02-28 08:00] VITALS: BP 118/62; PULSE 60; TEMP 36.6; O2SAT 95
[2025-02-28 08:08] LABS: Anion Gap 13 (12-20); Blood Urea Nitrogen 58 mg/dL (9-16); Calcium 9.5 mg/dL (8.4-10.2); Carbon Dioxide 22 mmol/L (22-29); Chloride 115 mmol/L (96-108); Creatinine Clr Calc Pharmacy 48.7; Estimated Glomerular Filt Rate 57; INTERNATIONAL NORM RATIO 1.8 (0.9-1.1); Potassium 4.1 mmol/L (3.3-5.1); Prothrombin Time 21.7 SEC (11.2-13.5); Sodium 146 mmol/L (135-145)
--- NOTE | 2025-02-28 09:04 | P.PNNP_ITS ---
Subjective Subjective Date of Service: 02/28/25 Interval history: No new events overnight renal function improving with IV fluids. Physical Exam 2 Vital Signs: Vital Signs: Last Vital Signs Temp 97.9 F 02/28/25 08:00 Pulse 60 02/28/25 08:00 Resp 16 02/27/25 20:00 BP 118/62 02/28/25 08:00 Pulse Ox 95 02/28/25 08:00 O2 Del Method Room Air 02/28/25 08:00 BMI result Body Mass Index 20.9 General: not in any acute distress, frail Nutritional Appearance: poorly nourished and underweight Eyes: appearance normal, both eyes and all related structures; Alignment and Position: alignment normal and position normal Neck: No lymphadenopathy, no thyromegaly Resp: bilateral air entry equal, no added sounds present Cardio: Regular rate, regular rhythm; Heart sounds: S1 normal heart sound present and S2 normal heart sound present GI: soft, nontender, no guarding, no hepatosplenomegaly : bladder normal to inspection, bladder normal to palpation, no renal angle tenderness Skin: no rashes or lesions noted and elasticity normal Neuro: alert, confused , moves all extremities Objective Data Labs 02/27/25 08:07 02/28/25 07:31 Labs: Laboratory Results - last 24 hr 02/27/25 02/27/25 02/27/25 07:41 08:07 10:58 WBC 7.3 RBC 3.79 L Hgb 12.8 L Hct 38.1 L MCV 100.5 H MCH 33.8 H MCHC 33.6 RDW 14.3 Plt Count 130 L MPV 11.9 Immature Gran % (Auto) 0.1 Neut % (Auto) 76.1 H Lymph % (Auto) 11.0 L [place] % (Auto) 9.1 Eos % (Auto) 3.0 Baso % (Auto) 0.7 Lymph # (Auto) 0.8 L [place] # (Auto) 0.7 Eos # (Auto) 0.2 Baso # (Auto) 0.1 Abs Immat Gran (auto) 0.01 Absolute Neuts (auto) 5.6 Absolute Nucleated RBC 0.000 Nucleated RBC % (auto) 0.0 Hold Purple Top PT INR Fibrinogen 438 D-Dimer High Sensitivty < 150 Sodium Potassium Chloride Carbon Dioxide Anion Gap BUN Creatinine Estim Creat Clear Calc Estimated GFR POC Glucose 140 H Random Glucose Calcium Direct Bilirubin 0.4 02/27/25 02/28/25 02/28/25 16:06 07:31 07:48 WBC RBC Hgb Hct MCV MCH MCHC RDW Plt Count MPV Immature Gran % (Auto) Neut % (Auto) Lymph % (Auto) [place] % (Auto) Eos % (Auto) Baso % (Auto) Lymph # (Auto) [place] # (Auto) Eos # (Auto) Baso # (Auto) Abs Immat Gran (auto) Absolute Neuts (auto) Absolute Nucleated RBC Nucleated RBC % (auto) Hold Purple Top SEE NOTE PT 21.7 H D INR 1.8 H D Fibrinogen D-Dimer High Sensitivty Sodium 146 H Potassium 4.1 Chloride 115 H Carbon Dioxide 22 Anion Gap 13 BUN 58 H Creatinine 1.24 Estim Creat Clear Calc 48.7 Estimated GFR 57 POC Glucose 134 H Random Glucose 129 H Calcium 9.5 Direct Bilirubin Procedures Date of Service Date of Service: 02/28/25 Assessment & Plan Assessment and plan (1) Hypertension: Status: Acute (2) Acute kidney injury: Status: Acute (3) Acute hypernatremia: Status: Acute Plan Acute kidney injury: Possibly secondary to poor oral intake leading to hypovolemia and poor perfusion of the kidneys Improving with IV fluids, creatinine down to 1.27 this morning Encourage oral fluid intake, if he can not take fluids orally then continue IV fluids Continue with holding lisinopril We will closely monitor renal function Avoid nephrotoxic agents, AURA/ARB, contrasts Acute hypernatremia: Sodium 146 Can switch the fluids from NS to LR Encourage oral fluid intake Hypertension: Blood pressures on lower side Continue with holding metoprolol When the blood pressure improves try avoiding lisinopril because he has a high- risk for ROSEMARY given poor oral intake and volume depletion Nephrology will sign off please reconsult if any new changes Time Spent With Patient Time: Total time managing care of this patient today ____ minutes. Progress Note: Quality Stroke Does the patient have a stroke diagnosis?: No
[2025-02-28 09:35] VITALS: BMI 28.7
--- NOTE | 2025-02-28 14:26 | HO.PM.IMPN ---
Subjective Subjective Date of Service: 02/28/25 Interval History: Patient is seen in follow up ROSEMARY and elevated INR. Today INR noted to be 1.8, patient received 2.5 mg of vitamin K yesterday. We will start Coumadin back at a very low dose of 1 mg daily, check iron morning. Patient received approximately 500 cc of normal saline yesterday before he pulled his IV out. Discussed this with his , reports that she came in yesterday to feed him and he ate very little. We will consult dietitian to reviewed diet and consider alternative to ensure as patient will not drink this as he feels it is too sweet. Psychiatry to start Remeron to promote his appetite. reports that patient weighed 256 lb in December, now current weight 205. Review of Systems Limited due to mental status Physical Exam Vital Signs: Vital Signs: Last Vital Signs Temp 97.9 F 02/28/25 08:00 Pulse 60 02/28/25 08:00 Resp 16 02/27/25 20:00 BP 118/62 02/28/25 08:00 Pulse Ox 95 02/28/25 08:00 O2 Del Method Room Air 02/28/25 08:00 BMI result Body Mass Index 28.7 General: not in any acute distress, frail. Combative with care Nutritional Appearance: poorly nourished and underweight Eyes: appearance normal, both eyes and all related structures; Alignment and Position: alignment normal and position normal Neck: No lymphadenopathy, no thyromegaly Resp: bilateral air entry equal, no added sounds present Cardio: Regular rate, regular rhythm; Heart sounds: S1 normal heart sound present and S2 normal heart sound present GI: soft, nontender, no guarding, no hepatosplenomegaly : bladder normal to inspection, bladder normal to palpation, no renal angle tenderness Skin: no rashes or lesions noted and elasticity normal Neuro: alert, confused , moves all extremities Objective Data Active Medications Acetaminophen (Acetaminophen 325 Mg Tablet) 650 mg PO Q6H PRN PRN Reason: Headache/Pain, Scale 1-10 Al Hydroxide/Mg Hydroxide (Magnesium Hydrox/Alum Hydrox 30 Ml Oral.Susp) 30 ml PO Q6H PRN PRN Reason: Heartburn/Nausea Atorvastatin Calcium (Atorvastatin Calcium 20 Mg Tablet) 20 mg PO DAILY@1930 [facility] Last Admin: 02/27/25 22:10 Dose: 20 mg Documented By: LONI Fluticasone/Vilanterol (Fluticasone/Vilanterol 100/25 Blst.W.Dev) 1 puff INHALE RDAILY [facility] Last Admin: 02/28/25 09:03 Dose: Not Given Documented By: RUBEN Non-Admin Reason: Patient Refused Glipizide (Glipizide Xl 5 Mg Tab.Er.24) 5 mg PO DAILY@0815 [facility] Last Admin: 02/28/25 11:52 Dose: Not Given Documented By: RUBEN Non-Admin Reason: Patient Refused Sodium Chloride (Ns) 1,000 mls @ 150 mls/hr IVCONT .Q6H40M [facility] Last Admin: 02/28/25 08:42 Dose: Not Given Documented By: RUBEN Non-Admin Reason: Medication Discontinued Insulin Human Lispro (Insulin Lispro 100 Unit/Ml 3 Ml Vial) 0 unit SUBCUT TIDAC [facility]; Protocol Last Admin: 02/28/25 11:52 Dose: Not Given Documented By: RUBEN Non-Admin Reason: refused POC Lisinopril (Lisinopril 5 Mg Tablet) 5 mg PO DAILY [facility]; Protocol On Hold: 02/27/25 09:07 Last Admin: 02/27/25 10:58 Dose: Not Given Documented By: ILANA Non-Admin Reason: Patient Refused Magnesium Hydroxide (Milk Of Magnesia 30 Ml Oral.Susp) 30 ml PO DAILY PRN PRN Reason: Constipation Melatonin (Melatonin 3 Mg Tablet) 6 mg PO BEDTIME [facility] Last Admin: 02/27/25 22:10 Dose: 6 mg Documented By: LONI Metoprolol Tartrate (Metoprolol Tartrate 25 Mg Tablet) 25 mg PO BID [facility]; Protocol On Hold: 02/27/25 10:21 Last Admin: 02/27/25 10:38 Dose: Not Given Documented By: ILANA Non-Admin Reason: med on hold Montelukast Sodium (Montelukast Sodium 10 Mg Tablet) 10 mg PO BEDTIME [facility] Last Admin: 02/27/25 22:10 Dose: 10 mg Documented By: LONI Nicotine Polacrilex (Nicotine Polacrilex 2 Mg Gum) 2 mg BUCCAL Q2H PRN PRN Reason: Nicotine Cravings Olanzapine (Olanzapine Odt 10 Mg Tab.Rapdis) 10 mg TRANSLINGU BID PRN PRN Reason: severe agitation/psychosis Last Admin: 02/25/25 22:07 Dose: 10 mg Documented By: SHANNON Omeprazole (Omeprazole 20 Mg Capsule.) 20 mg PO DAILY@0630 [facility] Last Admin: 02/28/25 06:35 Dose: 20 mg Documented By: LONI Quetiapine Fumarate (Quetiapine Fumarate 25 Mg Tablet) 25 mg PO BID PRN PRN Reason: agitation Last Admin: 02/24/25 01:45 Dose: 25 mg Documented By: MARY Quetiapine Fumarate (Quetiapine Fumarate 50 Mg Tablet) 50 mg PO TID [facility] Last Admin: 02/28/25 09:03 Dose: 50 mg Documented By: RUBEN Rivastigmine Tartrate (Rivastigmine Tartrate 1.5 Mg Capsule) 1.5 mg PO BID [facility] Last Admin: 02/28/25 09:03 Dose: 1.5 mg Documented By: RUBEN Sertraline HCl (Sertraline Hcl 100 Mg Tablet) 100 mg PO DAILY [facility] Last Admin: 02/28/25 09:03 Dose: 100 mg Documented By: RUBEN Trazodone HCl (Trazodone Hcl 50 Mg Tablet) 50 mg PO BEDTIME MRX1 PRN PRN Reason: Insomnia Last Admin: 02/25/25 22:07 Dose: 50 mg Documented By: SHANNON Warfarin Sodium (Warfarin Sodium 1 Mg Tablet) 1 mg PO DAILY@1800 [facility] Labs 02/27/25 08:07 02/28/25 07:31 Labs: Laboratory Results - last 24 hr 02/27/25 02/28/25 02/28/25 16:06 07:31 07:48 Hold Purple Top SEE NOTE PT 21.7 H D INR 1.8 H D Anion Gap 13 Estim Creat Clear Calc 48.7 Estimated GFR 57 POC Glucose 134 H Random Glucose 129 H Calcium 9.5 Assessment and Plan (1) Current use of anticoagulant therapy: Status: Acute (2) Acute kidney injury: Status: Acute Plan Patient is a 74-year-old male, with a PMH of Lewy body dementia c/b agitation and visual hallucinations, COPD, T2 DM, mechanical AVR on warfarin (2-3), PPM placement, brought into hospital by family 02/06/2025 with increased agitation & hallucinations after medication change Risperdal b.i.d. to t.i.d.; bed hold in the ED pending [facility]-psych placement; however he developed acute hypoxic respiratory failure likely in the setting of COPD exacerbation, which excess debated his agitation and combativeness and was admitted to medical floor. Medically cleared and now admitted to inpatient psych for further care and treatment. Lewy body dementia with agitation and aggression/failure to thrive Treatment per psychiatric team Consider Remeron, dietary consult for alternative to ensure. ROSEMARY Continue to hold lisinopril, patient removed IV Nephrology consulted, appreciate recommendations. Patient removed IV, in agreement with not reinserting at this time. Avoid nephrotoxic agents AURA/ARB contrast dyes Metoprolol and lisinopril on hold. Renal function improved to 1.27. Mechanical aortic valve replacement on warfarin/hypercoagulable state Goal INR should be 2-3 with a mechanical AVR Daily INRs and Coumadin adjustments. INR 1.8 today, restart Coumadin at 1 mg daily monitoring. PPI to prevent ulcer No evidence of active bleeding. Recently had Zoloft increase, also on atorvastatin which may contribute to increase in INRs Protein level and TSH are within normal limits. Anemia stable, no leukocytes, fibrinogen 438 within normal limits D-dimer less than 150, LFTs within normal limits Type 2 diabetes Continue glipizide Insulins lispro sliding scale t.i.d. a.c. Recent A1c 6.3 Glucose readings less than 150. Hyperlipidemia/hypertension/PPM Continue atorvastatin Hold Lisinopril and Lopressor due to ROSEMARY Blood pressure stable today COPD/asthma overlap Continue Montelukast Breo Ellipta if able P.r.n. nebulizer treatments Recently treated with IV antibiotics, nebulizers, and a 7 day course of steroids. Thank you for allowing me to participate in the care of this patient. Will follow with you, please notify medical provider with any changes in condition or concerns. Quality Stroke Does the patient have a stroke diagnosis?: No VTE Prior VTE?: No VTE Risk Level:: Medical - low VTE Device Contraindication: Treatment Not Indicated VTE Drug Contraindication: N/A - Med Ordered
--- NOTE | 2025-02-28 16:46 | HO.PSYCHPN ---
Subjective Subjective Date of Service: 02/28/25 Reason For Visit: dementia with disturbed behaviors Subjective Notes: Conditional Voluntary Healthcare Proxy: Yes Interim History: Pt slept through the night. INR 1.8 today. hospitalist following. He is mostly in bed, still combative at times when direct care provided. very limited oral intake. VS stable. Mental Status Exam Mental Status Exam Narrative: Appearance: wearing hospital gown, fair hygiene, in NAD Behavior: pleasant, awake Psychomotor: no agitation or retardation noted Speech: mumbles at times, regular rate/rhythm/volume, spontaneous TP: aphasia TC: resting Mood: good Affect: congruent SI: none HI: none VH/AH: he does self dialogue Delusions: no overt delusional content but confabulation Insight/judgment: impaired x 2. Memory/cog: alert, not oriented to place, month, year nor situation. severe impairements in memory/cog. Diagnostics Vital Signs (24Hr): Vital Signs - 24 hr 02/27/25 20:00 02/28/25 08:00 Temperature 97.5 F 97.9 F Pulse Rate 63 60 Respiratory Rate 16 Blood Pressure 129/59 L 118/62 Pulse Oximetry 96 95 Oxygen Delivery Method Room Air Room Air BMI result Body Mass Index 28.7 Labs 02/27/25 08:07 02/28/25 07:31 Labs: Laboratory Results - last 48 hr 02/26/25 02/26/25 02/27/25 08:24 20:19 07:41 WBC RBC Hgb Hct MCV MCH MCHC RDW Plt Count MPV Immature Gran % (Auto) Neut % (Auto) Lymph % (Auto) [place] % (Auto) Eos % (Auto) Baso % (Auto) Lymph # (Auto) [place] # (Auto) Eos # (Auto) Baso # (Auto) Abs Immat Gran (auto) Absolute Neuts (auto) Absolute Nucleated RBC Nucleated RBC % (auto) Hold Purple Top PT Cancelled 104.6 H INR Cancelled 9.1 H* Fibrinogen 438 D-Dimer High Sensitivty < 150 Sodium 143 Potassium 4.0 Chloride 113 H Carbon Dioxide 21 L Anion Gap 13 BUN 66 H Creatinine 1.47 H Estim Creat Clear Calc 41.1 Estimated GFR 47 POC Glucose 124 H Random Glucose 146 H Calcium 9.5 Total Bilirubin 1.0 Direct Bilirubin 0.4 AST 28 ALT 18 Alkaline Phosphatase 125 H Total Protein 6.7 Albumin 3.8 02/27/25 02/27/25 02/27/25 08:07 10:58 16:06 WBC 7.3 RBC 3.79 L Hgb 12.8 L Hct 38.1 L MCV 100.5 H MCH 33.8 H MCHC 33.6 RDW 14.3 Plt Count 130 L MPV 11.9 Immature Gran % (Auto) 0.1 Neut % (Auto) 76.1 H Lymph % (Auto) 11.0 L [place] % (Auto) 9.1 Eos % (Auto) 3.0 Baso % (Auto) 0.7 Lymph # (Auto) 0.8 L [place] # (Auto) 0.7 Eos # (Auto) 0.2 Baso # (Auto) 0.1 Abs Immat Gran (auto) 0.01 Absolute Neuts (auto) 5.6 Absolute Nucleated RBC 0.000 Nucleated RBC % (auto) 0.0 Hold Purple Top SEE NOTE PT INR Fibrinogen D-Dimer High Sensitivty Sodium Potassium Chloride Carbon Dioxide Anion Gap BUN Creatinine Estim Creat Clear Calc Estimated GFR POC Glucose 140 H 134 H Random Glucose Calcium Total Bilirubin Direct Bilirubin AST ALT Alkaline Phosphatase Total Protein Albumin 02/28/25 02/28/25 07:31 07:48 WBC RBC Hgb Hct MCV MCH MCHC RDW Plt Count MPV Immature Gran % (Auto) Neut % (Auto) Lymph % (Auto) [place] % (Auto) Eos % (Auto) Baso % (Auto) Lymph # (Auto) [place] # (Auto) Eos # (Auto) Baso # (Auto) Abs Immat Gran (auto) Absolute Neuts (auto) Absolute Nucleated RBC Nucleated RBC % (auto) Hold Purple Top SEE NOTE PT 21.7 H D INR 1.8 H D Fibrinogen D-Dimer High Sensitivty Sodium 146 H Potassium 4.1 Chloride 115 H Carbon Dioxide 22 Anion Gap 13 BUN 58 H Creatinine 1.24 Estim Creat Clear Calc 48.7 Estimated GFR 57 POC Glucose Random Glucose 129 H Calcium 9.5 Total Bilirubin Direct Bilirubin AST ALT Alkaline Phosphatase Total Protein Albumin Medications Medications Current Medications Acetaminophen (Acetaminophen 325 Mg Tablet) 650 mg PO Q6H PRN PRN Reason: Headache/Pain, Scale 1-10 Al Hydroxide/Mg Hydroxide (Magnesium Hydrox/Alum Hydrox 30 Ml Oral.Susp) 30 ml PO Q6H PRN PRN Reason: Heartburn/Nausea Atorvastatin Calcium (Atorvastatin Calcium 20 Mg Tablet) 20 mg PO DAILY@1930 [facility] Last Admin: 02/27/25 22:10 Dose: 20 mg Fluticasone/Vilanterol (Fluticasone/Vilanterol 100/25 Blst.W.Dev) 1 puff INHALE RDAILY [facility] Last Admin: 02/28/25 09:03 Dose: Not Given Glipizide (Glipizide Xl 5 Mg Tab.Er.24) 5 mg PO DAILY@0815 [facility] Last Admin: 02/28/25 11:52 Dose: Not Given Sodium Chloride (Ns) 1,000 mls @ 150 mls/hr IVCONT .Q6H40M [facility] Last Admin: 02/28/25 14:31 Dose: Not Given Insulin Human Lispro (Insulin Lispro 100 Unit/Ml 3 Ml Vial) 0 unit SUBCUT TIDAC [facility]; Protocol Last Admin: 02/28/25 16:28 Dose: Not Given Lisinopril (Lisinopril 5 Mg Tablet) 5 mg PO DAILY [facility]; Protocol On Hold: 02/27/25 09:07 Last Admin: 02/27/25 10:58 Dose: Not Given Magnesium Hydroxide (Milk Of Magnesia 30 Ml Oral.Susp) 30 ml PO DAILY PRN PRN Reason: Constipation Melatonin (Melatonin 3 Mg Tablet) 6 mg PO BEDTIME [facility] Last Admin: 02/27/25 22:10 Dose: 6 mg Metoprolol Tartrate (Metoprolol Tartrate 25 Mg Tablet) 25 mg PO BID [facility]; Protocol On Hold: 02/27/25 10:21 Last Admin: 02/27/25 10:38 Dose: Not Given Montelukast Sodium (Montelukast Sodium 10 Mg Tablet) 10 mg PO BEDTIME [facility] Last Admin: 02/27/25 22:10 Dose: 10 mg Nicotine Polacrilex (Nicotine Polacrilex 2 Mg Gum) 2 mg BUCCAL Q2H PRN PRN Reason: Nicotine Cravings Olanzapine (Olanzapine Odt 10 Mg Tab.Rapdis) 10 mg TRANSLINGU BID PRN PRN Reason: severe agitation/psychosis Last Admin: 02/25/25 22:07 Dose: 10 mg Omeprazole (Omeprazole 20 Mg Capsule.Dr) 20 mg PO DAILY@0630 [facility] Last Admin: 02/28/25 06:35 Dose: 20 mg Quetiapine Fumarate (Quetiapine Fumarate 25 Mg Tablet) 25 mg PO BID PRN PRN Reason: agitation Last Admin: 02/24/25 01:45 Dose: 25 mg Quetiapine Fumarate (Quetiapine Fumarate 50 Mg Tablet) 50 mg PO TID [facility] Last Admin: 02/28/25 15:19 Dose: Not Given Rivastigmine Tartrate (Rivastigmine Tartrate 1.5 Mg Capsule) 1.5 mg PO BID [facility] Last Admin: 02/28/25 09:03 Dose: 1.5 mg Sertraline HCl (Sertraline Hcl 100 Mg Tablet) 100 mg PO DAILY [facility] Last Admin: 02/28/25 09:03 Dose: 100 mg Trazodone HCl (Trazodone Hcl 50 Mg Tablet) 50 mg PO BEDTIME MRX1 PRN PRN Reason: Insomnia Last Admin: 02/25/25 22:07 Dose: 50 mg Warfarin Sodium (Warfarin Sodium 1 Mg Tablet) 1 mg PO DAILY@1800 [facility] Allergies Allergies Allergy/AdvReac Type Severity Reaction Status Date / Time metformin AdvReac Intermediate Stomach Verified 02/06/25 09:52 Upset Assessment & Plan Assessment & Plan (1) Dementia with Lewy bodies: Qualifiers: Dementia severity: severe Dementia behavioral or psychological symptom: without behavioral, psychotic, or mood disturbance or anxiety Qualified Code(s): G31.83 - Neurocognitive disorder with Lewy bodies; F02.C0 - Dementia in other diseases classified elsewhere, severe, without behavioral disturbance, psychotic disturbance, mood disturbance, and anxiety Status: Acute Code(s): G31.83 - Neurocognitive disorder with Lewy bodies; F02.80 - Dementia in other diseases classified elsewhere, unspecified severity, without behavioral disturbance, psychotic disturbance, mood disturbance, and anxiety (2) Current use of anticoagulant therapy: Status: Acute Code(s): Z79.01 - 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 Vasquez is a 74 year-old male with a hx of LBD who has been presenting with visual hallucinations for over one year. He has also been presenting more recently with increase agitation and combative behaviors. He recently had medication changes done by his neurologist including adding risperidone. Unclear if risperidone increase behaviors as it appears from collateral information from his that combative behaviors have been progressively increasing. As to the visual hallucinations, these are more chronic and unclear if we will be able to eliminate them. Agree with keeping galantamine as in context of LBD may help with VH, more than higher potency antipsychotics. Discussed with goals of care- She wants code to be DNR/DNI. We discussed increasing seroquel to 50mg po TID, and will also increase sertraline to 100mg po daily as serotonin in some cases of LBD actually may reduce VH. 02/22 continue sertraline 100mg po daily. continue Seroquel 50mg po TID along with prn medications 02/23: maintain current regimen. Coumadin being held as INR 6.1 02/24: Will order PT eval to minimize further physical decompensation (was ambulating independently at home pre admission as per nursing). 02/25 INR 7.6- hospitalist informed, warfarin continues to be held. creatinine clearance decreased from 76 on 02/16 to 46 on 02/25. mostly in bed, decreased oral intake. continues to present with combative behaviors when direct care provided. aphasia, unable to obtain much information from pt. 02/26 continue tx. continue tx. monitor INR, it is possible sertraline having some effect. hospitalist monitoring. His BP is low, oral intake has decreased. encouraged hydration. 02/27 INR 9 elevated despite holding dose of warfarin. hospitalist following, given Vit k. 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 He allowed insertion of IV without combative behaviors and allowed direct care also without aggression. He did later pulled IV. 02/28 continue tx. continue conversation in terms of goal of care, continues to present with poor oral intake. start remeron 15mg po qhs. Reason for continued inpatient stay Substantial Risk for: inability to function Time Spent With Patient Time: Total time managing care of this patient today ____ minutes.
[2025-02-28 20:00] VITALS: BP 114/59; PULSE 99; RESP 16; TEMP 36.9
[2025-03-01 06:48] LABS: Glucose, Whole Blood 125 mg/dL (60-115)
[2025-03-01 08:07] LABS: INTERNATIONAL NORM RATIO 1.5 (0.9-1.1); Prothrombin Time 18.3 SEC (11.2-13.5)
--- NOTE | 2025-03-01 09:08 | P.PNPSI_ITS ---
Subjective Subjective Date of Service: 03/01/25 Reason For Visit: dementia with disturbed behaviors Subjective Notes: Conditional Voluntary Healthcare Proxy: Yes Interim History: Periods of combative behaviors with direct care. pt sleeping most of the night and taking medications more consistently. VS stable. minimal oral intake. Mental Status Exam Mental Status Exam Narrative: Appearance: wearing hospital gown, fair hygiene, in NAD Behavior: pleasant, awake Psychomotor: no agitation or retardation noted Speech: mumbles at times, regular rate/rhythm/volume, spontaneous TP: aphasia TC: resting Mood: good Affect: congruent SI: none HI: none VH/AH: he does self dialogue Delusions: no overt delusional content but confabulation Insight/judgment: impaired x 2. Memory/cog: alert, not oriented to place, month, year nor situation. severe impairements in memory/cog. Diagnostics Vital Signs (24Hr): Vital Signs - 24 hr 02/28/25 20:00 Temperature 98.4 F Pulse Rate 99 Respiratory Rate 16 Blood Pressure 114/59 L BMI result Body Mass Index 28.7 Labs 02/27/25 08:07 02/28/25 07:31 Labs: Laboratory Results - last 48 hr 02/27/25 02/27/25 02/27/25 07:41 08:07 10:58 WBC 7.3 RBC 3.79 L Hgb 12.8 L Hct 38.1 L MCV 100.5 H MCH 33.8 H MCHC 33.6 RDW 14.3 Plt Count 130 L MPV 11.9 Immature Gran % (Auto) 0.1 Neut % (Auto) 76.1 H Lymph % (Auto) 11.0 L [place] % (Auto) 9.1 Eos % (Auto) 3.0 Baso % (Auto) 0.7 Lymph # (Auto) 0.8 L [place] # (Auto) 0.7 Eos # (Auto) 0.2 Baso # (Auto) 0.1 Abs Immat Gran (auto) 0.01 Absolute Neuts (auto) 5.6 Absolute Nucleated RBC 0.000 Nucleated RBC % (auto) 0.0 Hold Purple Top PT INR Fibrinogen 438 D-Dimer High Sensitivty < 150 Sodium Potassium Chloride Carbon Dioxide Anion Gap BUN Creatinine Estim Creat Clear Calc Estimated GFR POC Glucose 140 H Random Glucose Calcium Direct Bilirubin 0.4 02/27/25 02/28/25 02/28/25 16:06 07:31 07:48 WBC RBC Hgb Hct MCV MCH MCHC RDW Plt Count MPV Immature Gran % (Auto) Neut % (Auto) Lymph % (Auto) [place] % (Auto) Eos % (Auto) Baso % (Auto) Lymph # (Auto) [place] # (Auto) Eos # (Auto) Baso # (Auto) Abs Immat Gran (auto) Absolute Neuts (auto) Absolute Nucleated RBC Nucleated RBC % (auto) Hold Purple Top SEE NOTE PT 21.7 H D INR 1.8 H D Fibrinogen D-Dimer High Sensitivty Sodium 146 H Potassium 4.1 Chloride 115 H Carbon Dioxide 22 Anion Gap 13 BUN 58 H Creatinine 1.24 Estim Creat Clear Calc 48.7 Estimated GFR 57 POC Glucose 134 H Random Glucose 129 H Calcium 9.5 Direct Bilirubin 03/01/25 03/01/25 06:40 07:43 WBC RBC Hgb Hct MCV MCH MCHC RDW Plt Count MPV Immature Gran % (Auto) Neut % (Auto) Lymph % (Auto) [place] % (Auto) Eos % (Auto) Baso % (Auto) Lymph # (Auto) [place] # (Auto) Eos # (Auto) Baso # (Auto) Abs Immat Gran (auto) Absolute Neuts (auto) Absolute Nucleated RBC Nucleated RBC % (auto) Hold Purple Top PT 18.3 H INR 1.5 H Fibrinogen D-Dimer High Sensitivty Sodium Potassium Chloride Carbon Dioxide Anion Gap BUN Creatinine Estim Creat Clear Calc Estimated GFR POC Glucose 125 H Random Glucose Calcium Direct Bilirubin Medications Medications Current Medications Acetaminophen (Acetaminophen 325 Mg Tablet) 650 mg PO Q6H PRN PRN Reason: Headache/Pain, Scale 1-10 Al Hydroxide/Mg Hydroxide (Magnesium Hydrox/Alum Hydrox 30 Ml Oral.Susp) 30 ml PO Q6H PRN PRN Reason: Heartburn/Nausea Atorvastatin Calcium (Atorvastatin Calcium 20 Mg Tablet) 20 mg PO DAILY@1930 [facility] Last Admin: 02/28/25 23:51 Dose: Not Given Fluticasone/Vilanterol (Fluticasone/Vilanterol 100/25 Blst.W.Dev) 1 puff INHALE RDAILY [facility] Last Admin: 03/01/25 08:26 Dose: Not Given Glipizide (Glipizide Xl 5 Mg Tab.Er.24) 5 mg PO DAILY@0815 [facility] Last Admin: 03/01/25 08:28 Dose: 5 mg Sodium Chloride (Ns) 1,000 mls @ 150 mls/hr IVCONT .Q6H40M [facility] Last Admin: 02/28/25 14:31 Dose: Not Given Insulin Human Lispro (Insulin Lispro 100 Unit/Ml 3 Ml Vial) 0 unit SUBCUT TIDAC [facility]; Protocol Last Admin: 03/01/25 07:42 Dose: Not Given Lisinopril (Lisinopril 5 Mg Tablet) 5 mg PO DAILY [facility]; Protocol On Hold: 02/27/25 09:07 Last Admin: 02/27/25 10:58 Dose: Not Given Magnesium Hydroxide (Milk Of Magnesia 30 Ml Oral.Susp) 30 ml PO DAILY PRN PRN Reason: Constipation Melatonin (Melatonin 3 Mg Tablet) 6 mg PO BEDTIME [facility] Last Admin: 02/28/25 23:51 Dose: Not Given Metoprolol Tartrate (Metoprolol Tartrate 25 Mg Tablet) 25 mg PO BID [facility]; Protocol On Hold: 02/27/25 10:21 Last Admin: 02/27/25 10:38 Dose: Not Given Mirtazapine (Mirtazapine 15 Mg Tablet) 15 mg PO BEDTIME [facility] Last Admin: 02/28/25 23:51 Dose: Not Given Montelukast Sodium (Montelukast Sodium 10 Mg Tablet) 10 mg PO BEDTIME [facility] Last Admin: 02/28/25 23:51 Dose: Not Given Nicotine Polacrilex (Nicotine Polacrilex 2 Mg Gum) 2 mg BUCCAL Q2H PRN PRN Reason: Nicotine Cravings Olanzapine (Olanzapine Odt 10 Mg Tab.Rapdis) 10 mg TRANSLINGU BID PRN PRN Reason: severe agitation/psychosis Last Admin: 02/25/25 22:07 Dose: 10 mg Omeprazole (Omeprazole 20 Mg Capsule.Dr) 20 mg PO DAILY@0630 [facility] Last Admin: 03/01/25 06:30 Dose: Not Given Quetiapine Fumarate (Quetiapine Fumarate 25 Mg Tablet) 25 mg PO BID PRN PRN Reason: agitation Last Admin: 02/24/25 01:45 Dose: 25 mg Quetiapine Fumarate (Quetiapine Fumarate 50 Mg Tablet) 50 mg PO TID [facility] Last Admin: 03/01/25 08:26 Dose: 50 mg Rivastigmine Tartrate (Rivastigmine Tartrate 1.5 Mg Capsule) 1.5 mg PO BID [facility] Last Admin: 03/01/25 08:26 Dose: 1.5 mg Sertraline HCl (Sertraline Hcl 100 Mg Tablet) 100 mg PO DAILY [facility] Last Admin: 03/01/25 08:25 Dose: 100 mg Trazodone HCl (Trazodone Hcl 50 Mg Tablet) 50 mg PO BEDTIME MRX1 PRN PRN Reason: Insomnia Last Admin: 02/25/25 22:07 Dose: 50 mg Warfarin Sodium (Warfarin Sodium 1 Mg Tablet) 1 mg PO DAILY@1800 [facility] Last Admin: 02/28/25 18:56 Dose: 1 mg Allergies Allergies Allergy/AdvReac Type Severity Reaction Status Date / Time metformin AdvReac Intermediate Stomach Verified 02/06/25 09:52 Upset Assessment & Plan Assessment & Plan (1) Dementia with Lewy bodies: Qualifiers: Dementia behavioral or psychological symptom: without behavioral, psychotic, or mood disturbance or anxiety Dementia severity: severe Qualified Code(s): G31.83 - Neurocognitive disorder with Lewy bodies; F02.C0 - Dementia in other diseases classified elsewhere, severe, without behavioral disturbance, psychotic disturbance, mood disturbance, and anxiety Status: Acute Code(s): G31.83 - Neurocognitive disorder with Lewy bodies; F02.80 - Dementia in other diseases classified elsewhere, unspecified severity, without behavioral disturbance, psychotic disturbance, mood disturbance, and anxiety (2) Current use of anticoagulant therapy: Status: Acute Code(s): Z79.01 - detention (current) use of anticoagulants (3) Acute kidney injury: Status: Acute Code(s): N17.9 - Acute kidney failure, unspecified (4) Aortic valve replaced: Status: Acute Code(s): Z95.2 - Presence of prosthetic heart valve (5) Diabetes type 2: Qualifiers: Diabetes mellitus complication status: with other specified complication 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 Vasquez is a 74 year-old male with a hx of LBD who has been presenting with visual hallucinations for over one year. He has also been presenting more recently with increase agitation and combative behaviors. He recently had medication changes done by his neurologist including adding risperidone. Unclear if risperidone increase behaviors as it appears from collateral information from his that combative behaviors have been progressively increasing. As to the visual hallucinations, these are more chronic and unclear if we will be able to eliminate them. Agree with keeping galantamine as in context of LBD may help with VH, more than higher potency antipsychotics. Discussed with goals of care- She wants code to be DNR/DNI. We discussed increasing seroquel to 50mg po TID, and will also increase sertraline to 100mg po daily as serotonin in some cases of LBD actually may reduce VH. 02/22 continue sertraline 100mg po daily. continue Seroquel 50mg po TID along with prn medications 02/23: maintain current regimen. Coumadin being held as INR 6.1 02/24: Will order PT eval to minimize further physical decompensation (was ambulating independently at home pre admission as per nursing). 02/25 INR 7.6- hospitalist informed, warfarin continues to be held. creatinine clearance decreased from 76 on 02/16 to 46 on 02/25. mostly in bed, decreased oral intake. continues to present with combative behaviors when direct care provided. aphasia, unable to obtain much information from pt. 02/26 continue tx. continue tx. monitor INR, it is possible sertraline having some effect. hospitalist monitoring. His BP is low, oral intake has decreased. encouraged hydration. 02/27 INR 9 elevated despite holding dose of warfarin. hospitalist following, given Vit k. cattyman coordinating care with hospitalist, additional blood work added. He allowed insertion of IV without combative behaviors and allowed direct care also without aggression. He did later pulled IV. 02/28 continue tx. continue conversation in terms of goal of care, continues to present with poor oral intake. start remeron 15mg po qhs. 03/01 continue tx. Reason for continued inpatient stay Substantial Risk for: inability to function Time Spent With Patient Time: Total time managing care of this patient today ____ minutes.
[2025-03-01 11:02] LABS: Glucose, Whole Blood 156 mg/dL (60-115)
--- NOTE | 2025-03-01 12:49 | PM.EVENT ---
Event Note Date of Service: 03/01/25 Event Note: Patient's INR noted to be 1.5 today. Pharmacy monitoring, we will order another 1 mg warfarin daily and check INR in a.m.. Time Spent With Patient Time: Total time managing care of this patient today ____ minutes.
[2025-03-01 14:50] VITALS: BMI 28.7
--- NOTE | 2025-03-01 15:02 | MHC.CLN ---
CONSULT REGULAR DIET. REPORTED THAT ENSURE TOO SWEET CHANGING SUPPLEMENT TO ENSURE CLEAR TID. PROVIDES 720 KCALS, 24 G PROTEIN. PO INTAKE VERY POOR. STARTING REMERON TO PROMOTE PO. REPORTS PATIENT WITH SIGNIFICANT WEIGHT LOSS X 2 MONTHS. ENCOURAGE PO INTAKE AT MEALS AND SNACKS ABLE. SEE CLINICAL NUTRITION ASSESSMENT.
[2025-03-01 20:00] VITALS: BP 105/57; PULSE 75; RESP 18; TEMP 36.8; O2SAT 95
[2025-03-01 22:25] LABS: Glucose, Whole Blood 168 mg/dL (60-115)
[2025-03-02 07:03] LABS: Glucose, Whole Blood 141 mg/dL (60-115)
[2025-03-02 08:00] VITALS: BP 109/61; PULSE 60; TEMP 36.6; O2SAT 96
[2025-03-02 08:53] LABS: INTERNATIONAL NORM RATIO 1.5 (0.9-1.1); Prothrombin Time 18.5 SEC (11.2-13.5)
--- NOTE | 2025-03-02 09:28 | HO.PSYCHPN ---
Subjective Subjective Date of Service: 03/02/25 Reason For Visit: dementia with disturbed behaviors Interim History: Pt can be combative with patient care. Slept through the night. Hospitalist following for Coumadin dosing. He is mostly in bed. very limited oral intake. VS stable.Needs encouragement for medications. Review of Systems Review of Systems Limited due to mental status Yes Unobtainable due to mental status Diagnostics Vital Signs (24Hr): Vital Signs - 24 hr 03/01/25 20:00 Temperature 98.3 F Pulse Rate 75 Respiratory Rate 18 Blood Pressure 105/57 L Pulse Oximetry 95 Oxygen Delivery Method Room Air BMI result Body Mass Index 28.7 Labs 02/27/25 08:07 02/28/25 07:31 Labs: Laboratory Results - last 48 hr 03/01/25 03/01/25 03/01/25 06:40 07:43 10:58 PT 18.3 H INR 1.5 H POC Glucose 125 H 156 H 03/01/25 03/02/25 03/02/25 21:44 06:54 08:14 PT 18.5 H INR 1.5 H POC Glucose 168 H 141 H Medications Medications Current Medications Acetaminophen (Acetaminophen 325 Mg Tablet) 650 mg PO Q6H PRN PRN Reason: Headache/Pain, Scale 1-10 Al Hydroxide/Mg Hydroxide (Magnesium Hydrox/Alum Hydrox 30 Ml Oral.Susp) 30 ml PO Q6H PRN PRN Reason: Heartburn/Nausea Atorvastatin Calcium (Atorvastatin Calcium 20 Mg Tablet) 20 mg PO DAILY@1930 [facility] Last Admin: 03/01/25 22:24 Dose: Not Given Fluticasone/Vilanterol (Fluticasone/Vilanterol 100/25 Blst.W.Dev) 1 puff INHALE RDAILY [facility] Last Admin: 03/02/25 09:14 Dose: Not Given Glipizide (Glipizide Xl 5 Mg Tab.Er.24) 5 mg PO DAILY@0815 [facility] Last Admin: 03/01/25 08:28 Dose: 5 mg Insulin Human Lispro (Insulin Lispro 100 Unit/Ml 3 Ml Vial) 0 unit SUBCUT TIDAC [facility]; Protocol Last Admin: 03/02/25 09:14 Dose: Not Given Lisinopril (Lisinopril 5 Mg Tablet) 5 mg PO DAILY [facility]; Protocol On Hold: 02/27/25 09:07 Last Admin: 02/27/25 10:58 Dose: Not Given Magnesium Hydroxide (Milk Of Magnesia 30 Ml Oral.Susp) 30 ml PO DAILY PRN PRN Reason: Constipation Melatonin (Melatonin 3 Mg Tablet) 6 mg PO BEDTIME [facility] Last Admin: 03/01/25 22:24 Dose: Not Given Metoprolol Tartrate (Metoprolol Tartrate 25 Mg Tablet) 25 mg PO BID [facility]; Protocol On Hold: 02/27/25 10:21 Last Admin: 02/27/25 10:38 Dose: Not Given Mirtazapine (Mirtazapine 15 Mg Tablet) 15 mg PO BEDTIME [facility] Last Admin: 03/01/25 22:25 Dose: Not Given Montelukast Sodium (Montelukast Sodium 10 Mg Tablet) 10 mg PO BEDTIME [facility] Last Admin: 03/01/25 22:25 Dose: Not Given Nicotine Polacrilex (Nicotine Polacrilex 2 Mg Gum) 2 mg BUCCAL Q2H PRN PRN Reason: Nicotine Cravings Olanzapine (Olanzapine Odt 10 Mg Tab.Rapdis) 10 mg TRANSLINGU BID PRN PRN Reason: severe agitation/psychosis Last Admin: 02/25/25 22:07 Dose: 10 mg Omeprazole (Omeprazole 20 Mg Capsule.Dr) 20 mg PO DAILY@0630 [facility] Last Admin: 03/02/25 06:58 Dose: 20 mg Quetiapine Fumarate (Quetiapine Fumarate 25 Mg Tablet) 25 mg PO BID PRN PRN Reason: agitation Last Admin: 02/24/25 01:45 Dose: 25 mg Quetiapine Fumarate (Quetiapine Fumarate 50 Mg Tablet) 50 mg PO TID [facility] Last Admin: 03/02/25 09:07 Dose: 50 mg Rivastigmine Tartrate (Rivastigmine Tartrate 1.5 Mg Capsule) 1.5 mg PO BID [facility] Last Admin: 03/02/25 09:07 Dose: 1.5 mg Sertraline HCl (Sertraline Hcl 100 Mg Tablet) 100 mg PO DAILY [facility] Last Admin: 03/02/25 09:07 Dose: 100 mg Trazodone HCl (Trazodone Hcl 50 Mg Tablet) 50 mg PO BEDTIME MRX1 PRN PRN Reason: Insomnia Last Admin: 02/25/25 22:07 Dose: 50 mg Warfarin Sodium (Warfarin Sodium 1 Mg Tablet) 1 mg PO DAILY@1800 [facility] Last Admin: 03/01/25 18:03 Dose: 1 mg Allergies Allergies Allergy/AdvReac Type Severity Reaction Status Date / Time metformin AdvReac Intermediate Stomach Verified 02/06/25 09:52 Upset Assessment & Plan Assessment & Plan (1) Dementia with Lewy bodies: Qualifiers: Dementia behavioral or psychological symptom: without behavioral, psychotic, or mood disturbance or anxiety Dementia severity: severe Qualified Code(s): G31.83 - Neurocognitive disorder with Lewy bodies; F02.C0 - Dementia in other diseases classified elsewhere, severe, without behavioral disturbance, psychotic disturbance, mood disturbance, and anxiety Status: Acute Code(s): G31.83 - Neurocognitive disorder with Lewy bodies; F02.80 - Dementia in other diseases classified elsewhere, unspecified severity, without behavioral disturbance, psychotic disturbance, mood disturbance, and anxiety (2) Current use of anticoagulant therapy: Status: Acute Code(s): Z79.01 - investment banking manager (current) use of anticoagulants (3) Acute kidney injury: Status: Acute Code(s): N17.9 - Acute kidney failure, unspecified (4) Aortic valve replaced: Status: Acute Code(s): Z95.2 - Presence of prosthetic heart valve (5) Diabetes type 2: Qualifiers: Diabetes mellitus complication status: with other specified complication Diabetes mellitus mottler operator insulin use: without chcf use Qualified Code(s): E11.69 - Type 2 diabetes mellitus with other specified complication Status: Acute Code(s): E11.9 - Type 2 diabetes mellitus without complications Plan Plan Mr. Vasquez is a 74 year-old male with a hx of LBD who has been presenting with visual hallucinations for over one year. He has also been presenting more recently with increase agitation and combative behaviors. He recently had medication changes done by his neurologist including adding risperidone. Unclear if risperidone increase behaviors as it appears from collateral information from his that combative behaviors have been progressively increasing. As to the visual hallucinations, these are more chronic and unclear if we will be able to eliminate them. Agree with keeping galantamine as in context of LBD may help with VH, more than higher potency antipsychotics. Discussed with goals of care- She wants code to be DNR/DNI. We discussed increasing seroquel to 50mg po TID, and will also increase sertraline to 100mg po daily as serotonin in some cases of LBD actually may reduce VH. 02/22 continue sertraline 100mg po daily. continue Seroquel 50mg po TID along with prn medications 02/23: maintain current regimen. Coumadin being held as INR 6.1 02/24: Will order PT eval to minimize further physical decompensation (was ambulating independently at home pre admission as per nursing). 02/25 INR 7.6- hospitalist informed, warfarin continues to be held. creatinine clearance decreased from 76 on 02/16 to 46 on 02/25. mostly in bed, decreased oral intake. continues to present with combative behaviors when direct care provided. aphasia, unable to obtain much information from pt. 02/26 continue tx. continue tx. monitor INR, it is possible sertraline having some effect. hospitalist monitoring. His BP is low, oral intake has decreased. encouraged hydration. 02/27 INR 9 elevated despite holding dose of warfarin. hospitalist following, given Vit k. vice president and portfolio manager coordinating care with hospitalist, additional blood work added. He allowed insertion of IV without combative behaviors and allowed direct care also without aggression. He did later pulled IV. 02/28 continue tx. continue conversation in terms of goal of care, continues to present with poor oral intake. start remeron 15mg po qhs. 03/02: continue current management and treatment plan. Reason for continued inpatient stay Substantial Risk for: inability to function and rapid decompensation Time Spent With Patient Time: Total time managing care of this patient today ____ minutes.
[2025-03-02] MEDS: OLANZapine ODT 10 MG TAB.RAPDIS TRANSLINGU (12:36)
[2025-03-02 15:51] LABS: Glucose, Whole Blood 128 mg/dL (60-115)
[2025-03-02 21:35] LABS: Glucose, Whole Blood 130 mg/dL (60-115)
[2025-03-03 06:33] LABS: Glucose, Whole Blood 125 mg/dL (60-115)
[2025-03-03 08:00] VITALS: BP 98/60; PULSE 64
[2025-03-03 08:11] LABS: INTERNATIONAL NORM RATIO 1.9 (0.9-1.1); Prothrombin Time 22.5 SEC (11.2-13.5)
--- NOTE | 2025-03-03 12:24 | P.PNPSI_ITS ---
Subjective Subjective Date of Service: 03/03/25 Reason For Visit: dementia with disturbed behaviors Subjective Notes: Conditional Voluntary Healthcare Proxy: Yes Interim History: Patient is self dialoguing. Talking to and pointing at his perceptual disturbances. I found out it was my birthday yesterday was one of the things he is heard saying. Restless. Pt can be combative with patient care. Slept through the night. Hospitalist following for Coumadin dosing. INR 1.9 today. He is mostly in bed. very limited oral intake. VS stable. Needs encouragement for medications. Review of Systems Review of Systems Limited due to mental status Yes Unobtainable due to mental status Mental Status Exam Mental Status Exam Narrative: Appearance: wearing hospital gown, fair hygiene, in NAD Behavior: pleasant, awake Psychomotor: no agitation or retardation noted Speech: mumbles at times, regular rate/rhythm/volume, spontaneous TP: aphasia TC: resting Mood: good Affect: congruent SI: none HI: none VH/AH: he does self dialogue Delusions: no overt delusional content but confabulation Insight/judgment: impaired x 2. Memory/cog: alert, not oriented to place, month, year nor situation. severe impairements in memory/cog. Diagnostics Vital Signs (24Hr): Vital Signs - 24 hr 03/03/25 08:00 Pulse Rate 64 Blood Pressure 98/60 BMI result Body Mass Index 28.7 Labs 02/27/25 08:07 02/28/25 07:31 Labs: Laboratory Results - last 48 hr 03/01/25 03/02/25 03/02/25 21:44 06:54 08:14 PT 18.5 H INR 1.5 H POC Glucose 168 H 141 H 03/02/25 03/02/25 03/03/25 15:47 21:10 06:10 PT INR POC Glucose 128 H 130 H 125 H 03/03/25 07:59 PT 22.5 H D INR 1.9 H POC Glucose Medications Medications Current Medications Acetaminophen (Acetaminophen 325 Mg Tablet) 650 mg PO Q6H PRN PRN Reason: Headache/Pain, Scale 1-10 Al Hydroxide/Mg Hydroxide (Magnesium Hydrox/Alum Hydrox 30 Ml Oral.Susp) 30 ml PO Q6H PRN PRN Reason: Heartburn/Nausea Atorvastatin Calcium (Atorvastatin Calcium 20 Mg Tablet) 20 mg PO DAILY@1930 [facility] Last Admin: 03/02/25 21:40 Dose: Not Given Fluticasone/Vilanterol (Fluticasone/Vilanterol 100/25 Blst.W.Dev) 1 puff INHALE RDAILY [facility] Last Admin: 03/03/25 10:01 Dose: Not Given Glipizide (Glipizide Xl 5 Mg Tab.Er.24) 5 mg PO DAILY@0815 [facility] Last Admin: 03/03/25 08:47 Dose: 5 mg Insulin Human Lispro (Insulin Lispro 100 Unit/Ml 3 Ml Vial) 0 unit SUBCUT TIDAC [facility]; Protocol Last Admin: 03/03/25 12:06 Dose: Not Given Lisinopril (Lisinopril 5 Mg Tablet) 5 mg PO DAILY [facility]; Protocol On Hold: 02/27/25 09:07 Last Admin: 02/27/25 10:58 Dose: Not Given Magnesium Hydroxide (Milk Of Magnesia 30 Ml Oral.Susp) 30 ml PO DAILY PRN PRN Reason: Constipation Melatonin (Melatonin 3 Mg Tablet) 6 mg PO BEDTIME [facility] Last Admin: 03/02/25 21:40 Dose: Not Given Metoprolol Tartrate (Metoprolol Tartrate 25 Mg Tablet) 25 mg PO BID [facility]; Protocol On Hold: 02/27/25 10:21 Last Admin: 02/27/25 10:38 Dose: Not Given Mirtazapine (Mirtazapine 15 Mg Tablet) 15 mg PO BEDTIME [facility] Last Admin: 03/02/25 21:40 Dose: Not Given Montelukast Sodium (Montelukast Sodium 10 Mg Tablet) 10 mg PO BEDTIME [facility] Last Admin: 03/02/25 21:40 Dose: Not Given Nicotine Polacrilex (Nicotine Polacrilex 2 Mg Gum) 2 mg BUCCAL Q2H PRN PRN Reason: Nicotine Cravings Olanzapine (Olanzapine Odt 10 Mg Tab.Rapdis) 10 mg TRANSLINGU BID PRN PRN Reason: severe agitation/psychosis Last Admin: 03/02/25 12:36 Dose: 10 mg Omeprazole (Omeprazole 20 Mg Capsule.Dr) 20 mg PO DAILY@0630 [facility] Last Admin: 03/03/25 06:06 Dose: 20 mg Quetiapine Fumarate (Quetiapine Fumarate 25 Mg Tablet) 25 mg PO BID PRN PRN Reason: agitation Last Admin: 02/24/25 01:45 Dose: 25 mg Quetiapine Fumarate (Quetiapine Fumarate 50 Mg Tablet) 50 mg PO TID [facility] Last Admin: 03/03/25 08:47 Dose: 50 mg Rivastigmine Tartrate (Rivastigmine Tartrate 1.5 Mg Capsule) 1.5 mg PO BID [facility] Last Admin: 03/03/25 08:47 Dose: 1.5 mg Sertraline HCl (Sertraline Hcl 100 Mg Tablet) 100 mg PO DAILY [facility] Last Admin: 03/02/25 09:07 Dose: 100 mg Trazodone HCl (Trazodone Hcl 50 Mg Tablet) 50 mg PO BEDTIME MRX1 PRN PRN Reason: Insomnia Last Admin: 02/25/25 22:07 Dose: 50 mg Warfarin Sodium (Warfarin Sodium 1 Mg Tablet) 1 mg PO DAILY@1800 [facility] Last Admin: 03/02/25 18:02 Dose: Not Given Allergies Allergies Allergy/AdvReac Type Severity Reaction Status Date / Time metformin AdvReac Intermediate Stomach Verified 02/06/25 09:52 Upset Assessment & Plan Assessment & Plan (1) Dementia with Lewy bodies: Qualifiers: Dementia behavioral or psychological symptom: without behavioral, psychotic, or mood disturbance or anxiety Dementia severity: severe Qualified Code(s): G31.83 - Neurocognitive disorder with Lewy bodies; F02.C0 - Dementia in other diseases classified elsewhere, severe, without behavioral disturbance, psychotic disturbance, mood disturbance, and anxiety Status: Acute Code(s): G31.83 - Neurocognitive disorder with Lewy bodies; F02.80 - Dementia in other diseases classified elsewhere, unspecified severity, without behavioral disturbance, psychotic disturbance, mood disturbance, and anxiety (2) Current use of anticoagulant therapy: Status: Acute Code(s): Z79.01 - long term acute care registered nurse (current) use of anticoagulants (3) Acute kidney injury: Status: Acute Code(s): N17.9 - Acute kidney failure, unspecified (4) Aortic valve replaced: Status: Acute Code(s): Z95.2 - Presence of prosthetic heart valve (5) Diabetes type 2: Qualifiers: Diabetes mellitus complication status: with other specified complication Diabetes mellitus long term acute care registered nurse insulin use: without fpc use Qualified Code(s): E11.69 - Type 2 diabetes mellitus with other specified complication Status: Acute Code(s): E11.9 - Type 2 diabetes mellitus without complications Plan Plan Mr. Vasquez is a 74 year-old male with a hx of LBD who has been presenting with visual hallucinations for over one year. He has also been presenting more recently with increase agitation and combative behaviors. He recently had medication changes done by his neurologist including adding risperidone. Unclear if risperidone increase behaviors as it appears from collateral information from his that combative behaviors have been progressively increasing. As to the visual hallucinations, these are more chronic and unclear if we will be able to eliminate them. Agree with keeping galantamine as in context of LBD may help with VH, more than higher potency antipsychotics. Discussed with goals of care- She wants code to be DNR/DNI. We discussed increasing seroquel to 50mg po TID, and will also increase sertraline to 100mg po daily as serotonin in some cases of LBD actually may reduce VH. 02/22 continue sertraline 100mg po daily. continue Seroquel 50mg po TID along with prn medications 02/23: maintain current regimen. Coumadin being held as INR 6.1 02/24: Will order PT eval to minimize further physical decompensation (was ambulating independently at home pre admission as per nursing). 02/25 INR 7.6- hospitalist informed, warfarin continues to be held. creatinine clearance decreased from 76 on 02/16 to 46 on 02/25. mostly in bed, decreased oral intake. continues to present with combative behaviors when direct care provided. aphasia, unable to obtain much information from pt. 02/26 continue tx. continue tx. monitor INR, it is possible sertraline having some effect. hospitalist monitoring. His BP is low, oral intake has decreased. encouraged hydration. 02/27 INR 9 elevated despite holding dose of warfarin. hospitalist following, given Vit k. printer operator coordinating care with hospitalist, additional blood work added. He allowed insertion of IV without combative behaviors and allowed direct care also without aggression. He did later pulled IV. 02/28 continue tx. continue conversation in terms of goal of care, continues to present with poor oral intake. start remeron 15mg po qhs. 03/02: continue current management and treatment plan. 03/03: continue current management and treatment plan. Reason for continued inpatient stay Substantial Risk for: inability to function, rapid decompensation and med/psych decompensation Time Spent With Patient Time: Total time managing care of this patient today ____ minutes.
[2025-03-03 16:24] LABS: Glucose, Whole Blood 153 mg/dL (60-115)
[2025-03-03 20:00] VITALS: BP 98/58; PULSE 77; RESP 18; TEMP 36.6
[2025-03-04 06:45] LABS: Glucose, Whole Blood 134 mg/dL (60-115)
[2025-03-04 07:55] LABS: INTERNATIONAL NORM RATIO 2.1 (0.9-1.1); Prothrombin Time 24.9 SEC (11.2-13.5)
[2025-03-04 08:00] VITALS: BP 101/61; PULSE 71; RESP 16; TEMP 36.8; O2SAT 95
--- NOTE | 2025-03-04 10:22 | P.PNPSI_ITS ---
Subjective Subjective Date of Service: 03/04/25 Reason For Visit: dementia with disturbed behaviors Subjective Notes: Conditional Voluntary Interim History: Pt sleeping through the night. He is combative with direct care at times. Not oriented to place, month nor situation. He is mostly in bed. rambling difficult to understand at times. INR therapeutic this AM. declines medications at times. Mental Status Exam Mental Status Exam Narrative: Appearance: wearing hospital gown, fair hygiene, in NAD Behavior: pleasant, awake Psychomotor: no agitation or retardation noted Speech: mumbles at times, regular rate/rhythm/volume, spontaneous TP: aphasia TC: resting Mood: good Affect: congruent SI: none HI: none VH/AH: he does self dialogue Delusions: no overt delusional content but confabulation Insight/judgment: impaired x 2. Memory/cog: alert, not oriented to place, month, year nor situation. severe impairements in memory/cog. Diagnostics Vital Signs (24Hr): Vital Signs - 24 hr 03/03/25 20:00 Temperature 97.9 F Pulse Rate 77 Respiratory Rate 18 Blood Pressure 98/58 L BMI result Body Mass Index 28.7 Labs 02/27/25 08:07 02/28/25 07:31 Labs: Laboratory Results - last 48 hr 03/02/25 03/02/25 03/03/25 15:47 21:10 06:10 PT INR POC Glucose 128 H 130 H 125 H 03/03/25 03/03/25 03/04/25 07:59 16:14 06:41 PT 22.5 H D INR 1.9 H POC Glucose 153 H 134 H 03/04/25 07:19 PT 24.9 H INR 2.1 H POC Glucose Medications Medications Current Medications Acetaminophen (Acetaminophen 325 Mg Tablet) 650 mg PO Q6H PRN PRN Reason: Headache/Pain, Scale 1-10 Al Hydroxide/Mg Hydroxide (Magnesium Hydrox/Alum Hydrox 30 Ml Oral.Susp) 30 ml PO Q6H PRN PRN Reason: Heartburn/Nausea Atorvastatin Calcium (Atorvastatin Calcium 20 Mg Tablet) 20 mg PO DAILY@1930 [facility] Last Admin: 03/03/25 22:11 Dose: Not Given Fluticasone/Vilanterol (Fluticasone/Vilanterol 100/25 Blst.W.Dev) 1 puff INHALE RDAILY [facility] Last Admin: 03/04/25 09:59 Dose: Not Given Glipizide (Glipizide Xl 5 Mg Tab.Er.24) 5 mg PO DAILY@0815 [facility] Last Admin: 03/04/25 09:59 Dose: Not Given Insulin Human Lispro (Insulin Lispro 100 Unit/Ml 3 Ml Vial) 0 unit SUBCUT TIDAC [facility]; Protocol Last Admin: 03/04/25 07:42 Dose: Not Given Lisinopril (Lisinopril 5 Mg Tablet) 5 mg PO DAILY [facility]; Protocol On Hold: 02/27/25 09:07 Last Admin: 02/27/25 10:58 Dose: Not Given Magnesium Hydroxide (Milk Of Magnesia 30 Ml Oral.Susp) 30 ml PO DAILY PRN PRN Reason: Constipation Melatonin (Melatonin 3 Mg Tablet) 6 mg PO BEDTIME [facility] Last Admin: 03/03/25 22:12 Dose: Not Given Metoprolol Tartrate (Metoprolol Tartrate 25 Mg Tablet) 25 mg PO BID [facility]; Protocol On Hold: 02/27/25 10:21 Last Admin: 02/27/25 10:38 Dose: Not Given Mirtazapine (Mirtazapine 15 Mg Tablet) 15 mg PO BEDTIME [facility] Last Admin: 03/03/25 22:12 Dose: Not Given Montelukast Sodium (Montelukast Sodium 10 Mg Tablet) 10 mg PO BEDTIME [facility] Last Admin: 03/03/25 22:12 Dose: Not Given Nicotine Polacrilex (Nicotine Polacrilex 2 Mg Gum) 2 mg BUCCAL Q2H PRN PRN Reason: Nicotine Cravings Olanzapine (Olanzapine Odt 10 Mg Tab.Rapdis) 10 mg TRANSLINGU BID PRN PRN Reason: severe agitation/psychosis Last Admin: 03/02/25 12:36 Dose: 10 mg Omeprazole (Omeprazole 20 Mg Capsule.Dr) 20 mg PO DAILY@0630 [facility] Last Admin: 03/04/25 06:45 Dose: Not Given Quetiapine Fumarate (Quetiapine Fumarate 25 Mg Tablet) 25 mg PO BID PRN PRN Reason: agitation Last Admin: 02/24/25 01:45 Dose: 25 mg Quetiapine Fumarate (Quetiapine Fumarate 50 Mg Tablet) 50 mg PO TID [facility] Last Admin: 03/03/25 22:12 Dose: Not Given Rivastigmine Tartrate (Rivastigmine Tartrate 1.5 Mg Capsule) 1.5 mg PO BID [facility] Last Admin: 03/03/25 22:12 Dose: Not Given Sertraline HCl (Sertraline Hcl 100 Mg Tablet) 100 mg PO DAILY [facility] Last Admin: 03/03/25 14:52 Dose: 100 mg Trazodone HCl (Trazodone Hcl 50 Mg Tablet) 50 mg PO BEDTIME MRX1 PRN PRN Reason: Insomnia Last Admin: 02/25/25 22:07 Dose: 50 mg Warfarin Sodium (Warfarin Sodium 1 Mg Tablet) 1 mg PO DAILY@1800 [facility] Last Admin: 03/03/25 17:16 Dose: 1 mg Allergies Allergies Allergy/AdvReac Type Severity Reaction Status Date / Time metformin AdvReac Intermediate Stomach Verified 02/06/25 09:52 Upset Assessment & Plan Assessment & Plan (1) Dementia with Lewy bodies: Qualifiers: Dementia behavioral or psychological symptom: without behavioral, psychotic, or mood disturbance or anxiety Dementia severity: severe Qualified Code(s): G31.83 - Neurocognitive disorder with Lewy bodies; F02.C0 - Dementia in other diseases classified elsewhere, severe, without behavioral disturbance, psychotic disturbance, mood disturbance, and anxiety Status: Acute Code(s): G31.83 - Neurocognitive disorder with Lewy bodies; F02.80 - Dementia in other diseases classified elsewhere, unspecified severity, without behavioral disturbance, psychotic disturbance, mood disturbance, and anxiety (2) Current use of anticoagulant therapy: Status: Acute Code(s): Z79.01 - terminal worker (current) use of anticoagulants (3) Acute kidney injury: Status: Acute Code(s): N17.9 - Acute kidney failure, unspecified (4) Aortic valve replaced: Status: Acute Code(s): Z95.2 - Presence of prosthetic heart valve (5) Diabetes type 2: Qualifiers: Diabetes mellitus complication status: with other specified complication Diabetes mellitus terminal worker insulin use: without halfway use Qualified Code(s): E11.69 - Type 2 diabetes mellitus with other specified complication Status: Acute Code(s): E11.9 - Type 2 diabetes mellitus without complications Plan Plan Mr. Vasquez is a 74 year-old male with a hx of LBD who has been presenting with visual hallucinations for over one year. He has also been presenting more recently with increase agitation and combative behaviors. He recently had medication changes done by his neurologist including adding risperidone. Unclear if risperidone increase behaviors as it appears from collateral information from his that combative behaviors have been progressively increasing. As to the visual hallucinations, these are more chronic and unclear if we will be able to eliminate them. Agree with keeping galantamine as in context of LBD may help with VH, more than higher potency antipsychotics. Discussed with goals of care- She wants code to be DNR/DNI. We discussed increasing seroquel to 50mg po TID, and will also increase sertraline to 100mg po daily as serotonin in some cases of LBD actually may reduce VH. 02/22 continue sertraline 100mg po daily. continue Seroquel 50mg po TID along with prn medications 02/23: maintain current regimen. Coumadin being held as INR 6.1 02/24: Will order PT eval to minimize further physical decompensation (was ambulating independently at home pre admission as per nursing). 02/25 INR 7.6- hospitalist informed, warfarin continues to be held. creatinine clearance decreased from 76 on 02/16 to 46 on 02/25. mostly in bed, decreased oral intake. continues to present with combative behaviors when direct care provided. aphasia, unable to obtain much information from pt. 02/26 continue tx. continue tx. monitor INR, it is possible sertraline having some effect. hospitalist monitoring. His BP is low, oral intake has decreased. encouraged hydration. 02/27 INR 9 elevated despite holding dose of warfarin. hospitalist following, given Vit k. cardboard cutter coordinating care with hospitalist, additional blood work added. He allowed insertion of IV without combative behaviors and allowed direct care also without aggression. He did later pulled IV. 02/28 continue tx. continue conversation in terms of goal of care, continues to present with poor oral intake. start remeron 15mg po qhs. 03/01 continue tx. 03/04 continue tx. Reason for continued inpatient stay Substantial Risk for: inability to function Time Spent With Patient Time: Total time managing care of this patient today ____ minutes.
--- NOTE | 2025-03-04 12:18 | MHC.CLN ---
F/U DIET RX: REGULAR. ENSURE CLEAR TID PROVIDES 720 KCALS, 24 G PROTEIN. CONTINUES WITH VERY POOR PO INTAKE. REMERON STARTED 02/28 TO PROMOTE PO. ENCOURAGE PO INTAKE AT MEALS AND SNACKS ABLE. FOLLOW FOR PO INTAKE AND PLAN OF CARE.
[2025-03-04 15:45] LABS: Glucose, Whole Blood 152 mg/dL (60-115)
[2025-03-04 20:00] VITALS: PULSE 60; RESP 18; TEMP 36.8; O2SAT 96
[2025-03-04 22:13] LABS: Glucose, Whole Blood 163 mg/dL (60-115)
[2025-03-05 06:33] LABS: Glucose, Whole Blood 150 mg/dL (60-115)
[2025-03-05 08:21] LABS: INTERNATIONAL NORM RATIO 2.4 (0.9-1.1); Prothrombin Time 28.3 SEC (11.2-13.5)
--- NOTE | 2025-03-05 09:12 | HO.PSYCHPN ---
Subjective Subjective Date of Service: 03/05/25 Reason For Visit: dementia with disturbed behaviors Subjective Notes: Conditional Voluntary Healthcare Proxy: Yes Interim History: Pt sleeping, combative at times with direct care. Very minimal oral input. mostly in bed. VS stable. Mental Status Exam Mental Status Exam Narrative: Appearance: wearing hospital gown, fair hygiene, in NAD Behavior: pleasant, awake Psychomotor: no agitation or retardation noted Speech: mumbles at times, regular rate/rhythm/volume, spontaneous TP: aphasia TC: resting Mood: good Affect: congruent SI: none HI: none VH/AH: he does self dialogue Delusions: no overt delusional content but confabulation Insight/judgment: impaired x 2. Memory/cog: alert, not oriented to place, month, year nor situation. severe impairements in memory/cog. Diagnostics Vital Signs (24Hr): Vital Signs - 24 hr 03/04/25 20:00 Temperature 98.2 F Pulse Rate 60 Respiratory Rate 18 Pulse Oximetry 96 Oxygen Delivery Method Room Air BMI result Body Mass Index 28.7 Labs 02/27/25 08:07 02/28/25 07:31 Labs: Laboratory Results - last 48 hr 03/03/25 03/04/25 03/04/25 16:14 06:41 07:19 PT 24.9 H INR 2.1 H POC Glucose 153 H 134 H 03/04/25 03/04/25 03/05/25 15:41 22:08 06:19 PT INR POC Glucose 152 H 163 H 150 H 03/05/25 07:43 PT 28.3 H INR 2.4 H POC Glucose Medications Medications Current Medications Acetaminophen (Acetaminophen 325 Mg Tablet) 650 mg PO Q6H PRN PRN Reason: Headache/Pain, Scale 1-10 Al Hydroxide/Mg Hydroxide (Magnesium Hydrox/Alum Hydrox 30 Ml Oral.Susp) 30 ml PO Q6H PRN PRN Reason: Heartburn/Nausea Atorvastatin Calcium (Atorvastatin Calcium 20 Mg Tablet) 20 mg PO DAILY@1930 [facility] Last Admin: 03/04/25 21:21 Dose: 20 mg Fluticasone/Vilanterol (Fluticasone/Vilanterol 100/25 Blst.W.Dev) 1 puff INHALE RDAILY [facility] Last Admin: 03/05/25 08:25 Dose: Not Given Glipizide (Glipizide Xl 5 Mg Tab.Er.24) 5 mg PO DAILY@0815 [facility] Last Admin: 03/05/25 08:25 Dose: Not Given Insulin Human Lispro (Insulin Lispro 100 Unit/Ml 3 Ml Vial) 0 unit SUBCUT TIDAC [facility]; Protocol Last Admin: 03/05/25 08:24 Dose: Not Given Lisinopril (Lisinopril 5 Mg Tablet) 5 mg PO DAILY [facility]; Protocol On Hold: 02/27/25 09:07 Last Admin: 02/27/25 10:58 Dose: Not Given Magnesium Hydroxide (Milk Of Magnesia 30 Ml Oral.Susp) 30 ml PO DAILY PRN PRN Reason: Constipation Melatonin (Melatonin 3 Mg Tablet) 6 mg PO BEDTIME [facility] Last Admin: 03/04/25 21:22 Dose: 6 mg Metoprolol Tartrate (Metoprolol Tartrate 25 Mg Tablet) 25 mg PO BID [facility]; Protocol On Hold: 02/27/25 10:21 Last Admin: 02/27/25 10:38 Dose: Not Given Mirtazapine (Mirtazapine 15 Mg Tablet) 15 mg PO BEDTIME [facility] Last Admin: 03/04/25 21:22 Dose: 15 mg Montelukast Sodium (Montelukast Sodium 10 Mg Tablet) 10 mg PO BEDTIME [facility] Last Admin: 03/04/25 21:21 Dose: 10 mg Nicotine Polacrilex (Nicotine Polacrilex 2 Mg Gum) 2 mg BUCCAL Q2H PRN PRN Reason: Nicotine Cravings Olanzapine (Olanzapine Odt 10 Mg Tab.Rapdis) 10 mg TRANSLINGU BID PRN PRN Reason: severe agitation/psychosis Last Admin: 03/02/25 12:36 Dose: 10 mg Omeprazole (Omeprazole 20 Mg Capsule.Dr) 20 mg PO DAILY@0630 [facility] Last Admin: 03/05/25 06:28 Dose: 20 mg Quetiapine Fumarate (Quetiapine Fumarate 25 Mg Tablet) 25 mg PO BID PRN PRN Reason: agitation Last Admin: 02/24/25 01:45 Dose: 25 mg Quetiapine Fumarate (Quetiapine Fumarate 50 Mg Tablet) 50 mg PO TID [facility] Last Admin: 03/05/25 08:25 Dose: 50 mg Rivastigmine Tartrate (Rivastigmine Tartrate 1.5 Mg Capsule) 1.5 mg PO BID [facility] Last Admin: 03/05/25 08:25 Dose: 1.5 mg Sertraline HCl (Sertraline Hcl 100 Mg Tablet) 100 mg PO DAILY [facility] Last Admin: 03/05/25 08:25 Dose: 100 mg Trazodone HCl (Trazodone Hcl 50 Mg Tablet) 50 mg PO BEDTIME MRX1 PRN PRN Reason: Insomnia Last Admin: 02/25/25 22:07 Dose: 50 mg Warfarin Sodium (Warfarin Sodium 1 Mg Tablet) 1 mg PO DAILY@1800 [facility] Last Admin: 03/04/25 17:32 Dose: 1 mg Allergies Allergies Allergy/AdvReac Type Severity Reaction Status Date / Time metformin AdvReac Intermediate Stomach Verified 02/06/25 09:52 Upset Assessment & Plan Assessment & Plan (1) Dementia with Lewy bodies: Qualifiers: Dementia behavioral or psychological symptom: without behavioral, psychotic, or mood disturbance or anxiety Dementia severity: severe Qualified Code(s): G31.83 - Neurocognitive disorder with Lewy bodies; F02.C0 - Dementia in other diseases classified elsewhere, severe, without behavioral disturbance, psychotic disturbance, mood disturbance, and anxiety Status: Acute Code(s): G31.83 - Neurocognitive disorder with Lewy bodies; F02.80 - Dementia in other diseases classified elsewhere, unspecified severity, without behavioral disturbance, psychotic disturbance, mood disturbance, and anxiety (2) Current use of anticoagulant therapy: Status: Acute Code(s): Z79.01 - [facility] (current) use of anticoagulants (3) Acute kidney injury: Status: Acute Code(s): N17.9 - Acute kidney failure, unspecified (4) Aortic valve replaced: Status: Acute Code(s): Z95.2 - Presence of prosthetic heart valve (5) Diabetes type 2: Qualifiers: Diabetes mellitus complication status: with other specified complication Diabetes mellitus watermaster insulin use: without watermaster use Qualified Code(s): E11.69 - Type 2 diabetes mellitus with other specified complication Status: Acute Code(s): E11.9 - Type 2 diabetes mellitus without complications Plan Plan Mr. Vasquez is a 74 year-old male with a hx of LBD who has been presenting with visual hallucinations for over one year. He has also been presenting more recently with increase agitation and combative behaviors. He recently had medication changes done by his neurologist including adding risperidone. Unclear if risperidone increase behaviors as it appears from collateral information from his that combative behaviors have been progressively increasing. As to the visual hallucinations, these are more chronic and unclear if we will be able to eliminate them. Agree with keeping galantamine as in context of LBD may help with VH, more than higher potency antipsychotics. Discussed with goals of care- She wants code to be DNR/DNI. We discussed increasing seroquel to 50mg po TID, and will also increase sertraline to 100mg po daily as serotonin in some cases of LBD actually may reduce VH. 02/22 continue sertraline 100mg po daily. continue Seroquel 50mg po TID along with prn medications 02/23: maintain current regimen. Coumadin being held as INR 6.1 02/24: Will order PT eval to minimize further physical decompensation (was ambulating independently at home pre admission as per nursing). 02/25 INR 7.6- hospitalist informed, warfarin continues to be held. creatinine clearance decreased from 76 on 02/16 to 46 on 02/25. mostly in bed, decreased oral intake. continues to present with combative behaviors when direct care provided. aphasia, unable to obtain much information from pt. 02/26 continue tx. continue tx. monitor INR, it is possible sertraline having some effect. hospitalist monitoring. His BP is low, oral intake has decreased. encouraged hydration. 02/27 INR 9 elevated despite holding dose of warfarin. hospitalist following, given Vit k. 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 He allowed insertion of IV without combative behaviors and allowed direct care also without aggression. He did later pulled IV. 02/28 continue tx. continue conversation in terms of goal of care, continues to present with poor oral intake. start remeron 15mg po qhs. 03/01 continue tx. 03/04 continue tx. 03/05 continue tx. very poor intake. reaching point of terminal dementia. consider changing goals of care. Reason for continued inpatient stay Substantial Risk for: inability to function Time Spent With Patient Time: Total time managing care of this patient today ____ minutes.
[2025-03-05 20:23] LABS: Glucose, Whole Blood 163 mg/dL (60-115)
[2025-03-06 06:53] LABS: Glucose, Whole Blood 172 mg/dL (60-115)
[2025-03-06 07:48] LABS: INTERNATIONAL NORM RATIO 2.6 (0.9-1.1); Prothrombin Time 30.5 SEC (11.2-13.5)
--- NOTE | 2025-03-06 09:20 | PC.NURSE ---
Pt refused his morning medications and vital, he becomes combative and spit his meds out. provider aware.
--- NOTE | 2025-03-06 09:32 | HO.PSYCHPN ---
Subjective Subjective Date of Service: 03/06/25 Reason For Visit: dementia with disturbed behaviors Subjective Notes: Conditional Voluntary Healthcare Proxy: Yes Interim History: Pt sleeping, in bed, mumbles. Not oriented to situation, month nor year. In bed, not ambulatory. Minimal oral intake- cmp completed today which show ROSEMARY BUN 55, Cr 1.60, Sodium high 150. Discussed with that patient is in terminal stages of dementia, with a more marked decrease in oral intake affecting electrolytes and renal function. eventually decided to change code and goals of care to COURTESY CLERK. d/c POC, medications such as cholesterol medication, metoprolol, glipezide. Mental Status Exam Mental Status Exam Narrative: Appearance: wearing hospital gown, fair hygiene, in NAD Behavior: pleasant, awake Psychomotor: no agitation or retardation noted Speech: mumbles at times, regular rate/rhythm/volume, spontaneous TP: aphasia TC: resting Mood: good Affect: congruent SI: none HI: none VH/AH: he does self dialogue Delusions: no overt delusional content but confabulation Insight/judgment: impaired x 2. Memory/cog: alert, not oriented to place, month, year nor situation. severe impairements in memory/cog. Diagnostics Vital Signs (24Hr): BMI result Body Mass Index 28.7 Labs 02/27/25 08:07 03/06/25 09:59 Labs: Laboratory Results - last 48 hr 03/04/25 03/04/25 03/05/25 15:41 22:08 06:19 PT INR POC Glucose 152 H 163 H 150 H 03/05/25 03/05/25 03/06/25 07:43 20:19 06:41 PT 28.3 H INR 2.4 H POC Glucose 163 H 172 H 03/06/25 07:16 PT 30.5 H INR 2.6 H POC Glucose Medications Medications Current Medications Acetaminophen (Acetaminophen 325 Mg Tablet) 650 mg PO Q6H PRN PRN Reason: Headache/Pain, Scale 1-10 Al Hydroxide/Mg Hydroxide (Magnesium Hydrox/Alum Hydrox 30 Ml Oral.Susp) 30 ml PO Q6H PRN PRN Reason: Heartburn/Nausea Atorvastatin Calcium (Atorvastatin Calcium 20 Mg Tablet) 20 mg PO DAILY@1930 [facility] Last Admin: 03/06/25 00:14 Dose: Not Given Fluticasone/Vilanterol (Fluticasone/Vilanterol 100/25 Blst.W.Dev) 1 puff INHALE RDAILY [facility] Last Admin: 03/06/25 09:02 Dose: Not Given Glipizide (Glipizide Xl 5 Mg Tab.Er.24) 5 mg PO DAILY@0815 [facility] Last Admin: 03/06/25 09:03 Dose: Not Given Insulin Human Lispro (Insulin Lispro 100 Unit/Ml 3 Ml Vial) 0 unit SUBCUT TIDAC [facility]; Protocol Last Admin: 03/06/25 08:33 Dose: Not Given Lisinopril (Lisinopril 5 Mg Tablet) 5 mg PO DAILY [facility]; Protocol On Hold: 02/27/25 09:07 Last Admin: 02/27/25 10:58 Dose: Not Given Magnesium Hydroxide (Milk Of Magnesia 30 Ml Oral.Susp) 30 ml PO DAILY PRN PRN Reason: Constipation Melatonin (Melatonin 3 Mg Tablet) 6 mg PO BEDTIME [facility] Last Admin: 03/06/25 00:15 Dose: Not Given Metoprolol Tartrate (Metoprolol Tartrate 25 Mg Tablet) 25 mg PO BID [facility]; Protocol On Hold: 02/27/25 10:21 Last Admin: 02/27/25 10:38 Dose: Not Given Mirtazapine (Mirtazapine 15 Mg Tablet) 15 mg PO BEDTIME [facility] Last Admin: 03/06/25 00:15 Dose: Not Given Montelukast Sodium (Montelukast Sodium 10 Mg Tablet) 10 mg PO BEDTIME [facility] Last Admin: 03/06/25 00:15 Dose: Not Given Nicotine Polacrilex (Nicotine Polacrilex 2 Mg Gum) 2 mg BUCCAL Q2H PRN PRN Reason: Nicotine Cravings Olanzapine (Olanzapine Odt 10 Mg Tab.Rapdis) 10 mg TRANSLINGU BID PRN PRN Reason: severe agitation/psychosis Last Admin: 03/02/25 12:36 Dose: 10 mg Omeprazole (Omeprazole 20 Mg Capsule.Dr) 20 mg PO DAILY@0630 [facility] Last Admin: 03/06/25 06:38 Dose: 20 mg Quetiapine Fumarate (Quetiapine Fumarate 25 Mg Tablet) 25 mg PO BID PRN PRN Reason: agitation Last Admin: 02/24/25 01:45 Dose: 25 mg Quetiapine Fumarate (Quetiapine Fumarate 50 Mg Tablet) 50 mg PO TID [facility] Last Admin: 03/06/25 08:55 Dose: 50 mg Rivastigmine Tartrate (Rivastigmine Tartrate 1.5 Mg Capsule) 1.5 mg PO BID [facility] Last Admin: 03/06/25 08:53 Dose: 1.5 mg Sertraline HCl (Sertraline Hcl 100 Mg Tablet) 100 mg PO DAILY [facility] Last Admin: 03/06/25 08:53 Dose: 100 mg Trazodone HCl (Trazodone Hcl 50 Mg Tablet) 50 mg PO BEDTIME MRX1 PRN PRN Reason: Insomnia Last Admin: 02/25/25 22:07 Dose: 50 mg Warfarin Sodium (Warfarin Sodium 1 Mg Tablet) 1 mg PO DAILY@1800 [facility] Last Admin: 03/05/25 17:55 Dose: 1 mg Allergies Allergies Allergy/AdvReac Type Severity Reaction Status Date / Time metformin AdvReac Intermediate Stomach Verified 02/06/25 09:52 Upset Assessment & Plan Assessment & Plan (1) Dementia with Lewy bodies: Qualifiers: Dementia behavioral or psychological symptom: without behavioral, psychotic, or mood disturbance or anxiety Dementia severity: severe Qualified Code(s): G31.83 - Neurocognitive disorder with Lewy bodies; F02.C0 - Dementia in other diseases classified elsewhere, severe, without behavioral disturbance, psychotic disturbance, mood disturbance, and anxiety Status: Acute Code(s): G31.83 - Neurocognitive disorder with Lewy bodies; F02.80 - Dementia in other diseases classified elsewhere, unspecified severity, without behavioral disturbance, psychotic disturbance, mood disturbance, and anxiety (2) Current use of anticoagulant therapy: Status: Acute Code(s): Z79.01 - [facility] (current) use of anticoagulants (3) Acute kidney injury: Status: Acute Code(s): N17.9 - Acute kidney failure, unspecified (4) Aortic valve replaced: Status: Acute Code(s): Z95.2 - Presence of prosthetic heart valve (5) Diabetes type 2: Qualifiers: Diabetes mellitus complication status: with other specified complication Diabetes mellitus nursing home insulin use: without nursing home use Qualified Code(s): E11.69 - Type 2 diabetes mellitus with other specified complication Status: Acute Code(s): E11.9 - Type 2 diabetes mellitus without complications Plan Plan Mr. Vasquez is a 74 year-old male with a hx of LBD who has been presenting with visual hallucinations for over one year. He has also been presenting more recently with increase agitation and combative behaviors. He recently had medication changes done by his neurologist including adding risperidone. Unclear if risperidone increase behaviors as it appears from collateral information from his that combative behaviors have been progressively increasing. As to the visual hallucinations, these are more chronic and unclear if we will be able to eliminate them. Agree with keeping galantamine as in context of LBD may help with VH, more than higher potency antipsychotics. Discussed with goals of care- She wants code to be DNR/DNI. We discussed increasing seroquel to 50mg po TID, and will also increase sertraline to 100mg po daily as serotonin in some cases of LBD actually may reduce VH. 02/22 continue sertraline 100mg po daily. continue Seroquel 50mg po TID along with prn medications 02/23: maintain current regimen. Coumadin being held as INR 6.1 02/24: Will order PT eval to minimize further physical decompensation (was ambulating independently at home pre admission as per nursing). 02/25 INR 7.6- hospitalist informed, warfarin continues to be held. creatinine clearance decreased from 76 on 02/16 to 46 on 02/25. mostly in bed, decreased oral intake. continues to present with combative behaviors when direct care provided. aphasia, unable to obtain much information from pt. 02/26 continue tx. continue tx. monitor INR, it is possible sertraline having some effect. hospitalist monitoring. His BP is low, oral intake has decreased. encouraged hydration. 02/27 INR 9 elevated despite holding dose of warfarin. hospitalist following, given Vit k. 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 He allowed insertion of IV without combative behaviors and allowed direct care also without aggression. He did later pulled IV. 02/28 continue tx. continue conversation in terms of goal of care, continues to present with poor oral intake. start remeron 15mg po qhs. 03/01 continue tx. 03/04 continue tx. 03/05 continue tx. very poor intake. reaching point of terminal dementia. consider changing goals of care. 03/06 discussed with family terminal dementia, minimal oral intake affecting renal function and electrolytes. decision to change code to COURTESY CLERK was made by his . VS, POC, d/caty Reason for continued inpatient stay Substantial Risk for: inability to function Time Spent With Patient Time: Total time managing care of this patient today ____ minutes.
[2025-03-06 10:19] LABS: Alanine Aminotransferase 18 U/L (0-40); Albumin Level 3.8 g/dL (3.5-5.0); Alkaline Phosphatase 128 U/L (39-117); Anion Gap 14 (12-20); Aspartate Amino Transferase 28 U/L (5-37); Blood Urea Nitrogen 59 mg/dL (9-16); Calcium 10.0 mg/dL (8.4-10.2); Carbon Dioxide 23 mmol/L (22-29); Chloride 117 mmol/L (96-108); Creatinine Clr Calc Pharmacy 43.9; Estimated Glomerular Filt Rate 40; Potassium 4.0 mmol/L (3.3-5.1); Sodium 150 mmol/L (135-145); Total Protein 6.8 g/dL (6.5-8.0)
[2025-03-06 11:26] LABS: Glucose, Whole Blood 142 mg/dL (60-115)
--- NOTE | 2025-03-06 13:28 | MHC.CLN ---
F/U DIET RX: REGULAR. ENSURE CLEAR TID PROVIDES 720 KCALS, 24 G PROTEIN. CONTINUES WITH VERY POOR PO INTAKE. PROVIDER AWARE OF VERY POOR PO. REMERON STARTED 02/28 TO PROMOTE PO. ENCOURAGE PO INTAKE AT MEALS AND SNACKS ABLE. FOLLOW FOR PO INTAKE AND PLAN OF CARE.
--- NOTE | 2025-03-06 16:14 | HO.PM.IMPN ---
Subjective Subjective Date of Service: 03/06/25 Interval History: Patient continues to have poor p.o. intake, his sodium level is 150, his creatinine is 1.67. Patient with a creatinine of 1.47 and received some IV fluids previously. Patient pulled out the IV and after discussion with the no further IV treatments were given in was considering comfort measures. Discussion with regarding patient's continued poor p.o. intake and need for IV fluids. does not wish patient to have anymore IV fluids and wishes him to be comfort measures only. Upon exam patient is alert and nonsensical, continues to be combative with care intermittently refusing p.o. fluids or food intake. Review of Systems Unable due to mentation Physical Exam Vital Signs: Vital Signs: Last Vital Signs Temp 98.2 F 03/04/25 20:00 Pulse 60 03/04/25 20:00 Resp 18 03/04/25 20:00 BP 101/61 03/04/25 08:00 Pulse Ox 96 03/04/25 20:00 O2 Del Method Room Air 03/04/25 20:00 BMI result Body Mass Index 28.7 General: not in any acute distress, frail. Combative with care Nutritional Appearance: poorly nourished and underweight Eyes: appearance normal, both eyes and all related structures; Alignment and Position: alignment normal and position normal Neck: No lymphadenopathy, no thyromegaly Resp: bilateral air entry equal, no added sounds present Cardio: Regular rate, regular rhythm; Heart sounds: S1 normal heart sound present and S2 normal heart sound present GI: soft, nontender, no guarding, no hepatosplenomegaly : bladder normal to inspection, bladder normal to palpation, no renal angle tenderness Skin: no rashes or lesions noted and elasticity normal Neuro: alert, confused , moves all extremities Objective Data Active Medications Acetaminophen (Acetaminophen 325 Mg Tablet) 650 mg PO Q6H PRN PRN Reason: Headache/Pain, Scale 1-10 Al Hydroxide/Mg Hydroxide (Magnesium Hydrox/Alum Hydrox 30 Ml Oral.Susp) 30 ml PO Q6H PRN PRN Reason: Heartburn/Nausea Fluticasone/Vilanterol (Fluticasone/Vilanterol 100/25 Blst.W.Dev) 1 puff [facility] Last Admin: 03/06/25 09:02 Dose: Not Given Documented By: ILANA Non-Admin Reason: Patient Refused Glipizide (Glipizide Xl 5 Mg Tab.Er.24) 5 mg PO DAILY@0815 [facility] Last Admin: 03/06/25 09:03 Dose: Not Given Documented By: ILANA Non-Admin Reason: Patient Refused Insulin Human Lispro (Insulin Lispro 100 Unit/Ml 3 Ml Vial) 0 unit SUBCUT TIDAC [facility]; Protocol Last Admin: 03/06/25 11:47 Dose: Not Given Documented By: ILANA Non-Admin Reason: No Insulin Coverage Lisinopril (Lisinopril 5 Mg Tablet) 5 mg PO DAILY [facility]; Protocol On Hold: 02/27/25 09:07 Last Admin: 02/27/25 10:58 Dose: Not Given Documented By: ILANA Non-Admin Reason: Patient Refused Magnesium Hydroxide (Milk Of Magnesia 30 Ml Oral.Susp) 30 ml PO DAILY PRN PRN Reason: Constipation Melatonin (Melatonin 3 Mg Tablet) 6 mg PO BEDTIME [facility] Last Admin: 03/06/25 00:15 Dose: Not Given Documented By: SHANNON Non-Admin Reason: Patient Refused Metoprolol Tartrate (Metoprolol Tartrate 25 Mg Tablet) 25 mg PO BID [facility]; Protocol On Hold: 02/27/25 10:21 Last Admin: 02/27/25 10:38 Dose: Not Given Documented By: ILANA Non-Admin Reason: med on hold Mirtazapine (Mirtazapine 15 Mg Tablet) 15 mg PO BEDTIME [facility] Last Admin: 03/06/25 00:15 Dose: Not Given Documented By: SHANNON Non-Admin Reason: Patient Refused Nicotine Polacrilex (Nicotine Polacrilex 2 Mg Gum) 2 mg BUCCAL Q2H PRN PRN Reason: Nicotine Cravings Olanzapine (Olanzapine Odt 10 Mg Tab.Rapdis) 10 mg TRANSLINGU BID PRN PRN Reason: severe agitation/psychosis Last Admin: 03/02/25 12:36 Dose: 10 mg Documented By: KATJA Omeprazole (Omeprazole 20 Mg Capsule.) 20 mg PO DAILY@0630 [facility] Last Admin: 03/06/25 06:38 Dose: 20 mg Documented By: SHANNON Quetiapine Fumarate (Quetiapine Fumarate 25 Mg Tablet) 25 mg PO BID PRN PRN Reason: agitation Last Admin: 02/24/25 01:45 Dose: 25 mg Documented By: MARY Quetiapine Fumarate (Quetiapine Fumarate 50 Mg Tablet) 50 mg PO TID [facility] Last Admin: 03/06/25 15:10 Dose: Not Given Documented By: ILANA Non-Admin Reason: Patient Refused Sertraline HCl (Sertraline Hcl 100 Mg Tablet) 100 mg PO DAILY [facility] Last Admin: 03/06/25 08:53 Dose: 100 mg Documented By: ILANA Trazodone HCl (Trazodone Hcl 50 Mg Tablet) 50 mg PO BEDTIME MRX1 PRN PRN Reason: Insomnia Last Admin: 02/25/25 22:07 Dose: 50 mg Documented By: SHANNON Warfarin Sodium (Warfarin Sodium 1 Mg Tablet) 1 mg PO DAILY@1800 [facility] Last Admin: 03/05/25 17:55 Dose: 1 mg Documented By: ILANA Labs 02/27/25 08:07 03/06/25 09:59 Labs: Laboratory Results - last 24 hr 03/05/25 03/06/25 03/06/25 20:19 06:41 07:16 Hold Purple Top PT 30.5 H INR 2.6 H Anion Gap Estim Creat Clear Calc Estimated GFR POC Glucose 163 H 172 H Random Glucose Calcium Total Bilirubin AST ALT Alkaline Phosphatase Total Protein Albumin 03/06/25 03/06/25 09:59 11:22 Hold Purple Top SEE NOTE PT INR Anion Gap 14 Estim Creat Clear Calc 43.9 Estimated GFR 40 POC Glucose 142 H Random Glucose 162 H Calcium 10.0 Total Bilirubin 0.7 AST 28 ALT 18 Alkaline Phosphatase 128 H Total Protein 6.8 Albumin 3.8 Assessment and Plan (1) Acute kidney injury: Status: Acute (2) Failure to thrive in adult: Status: Acute Plan Patient is a 74-year-old male, with a PMH of Lewy body dementia c/b agitation and visual hallucinations, COPD, T2 DM, mechanical AVR on warfarin (2-3), PPM placement, brought into hospital by family 02/06/2025 with increased agitation & hallucinations after medication change Risperdal b.i.d. to t.i.d.; bed hold in the ED pending [facility] placement; however he developed acute hypoxic respiratory failure likely in the setting of COPD exacerbation, which excess debated his agitation and combativeness and was admitted to medical floor. Medically cleared and now admitted to inpatient psych for further care and treatment. Patient with continued failure to thrive, wishes patient to be comfort measures only. Lewy body dementia with agitation and aggression/failure to thrive/[employer] Treatment per psychiatric team Consider Remeron, dietary consult for alternative to ensure. no longer wishes patient to have IV fluids, patient with a significant weight loss, not taking any food or fluids. Patient is not taking any medications Medications reviewed unnecessary medications discontinued. Start morphine sulfate low-dose for evidence of pain or respiratory distress. ROSEMARY Lisinopril has been on hold, blood pressure has been stable Discussion held with regarding recent lab work, patient not eating or drinking. does not wish to have IVs reinsert that this time Wishes patient to be comfort measures only Mechanical aortic valve replacement on warfarin/hypercoagulable state Goal INR should be 2.5-3.5 with a mechanical AVR Continue Coumadin at 1 mg daily monitoring. PPI to prevent ulcer No evidence of active bleeding. Protein level and TSH are within normal limits. Anemia stable, no leukocytes, fibrinogen 438 within normal limits D-dimer less than 150, LFTs within normal limits Type 2 diabetes Continue glipizide DC point of care Recent A1c 6.3 Hyperlipidemia/hypertension/PPM Continue atorvastatin Hold Lisinopril and Lopressor due to ROSEMARY Blood pressure stable today COPD/asthma overlap Continue Montelukast Breo Ellipta if able P.r.n. nebulizer treatments Recently treated with IV antibiotics, nebulizers, and a 7 day course of steroids. Thank you for allowing me to participate in the care of this patient. Will follow with you, please notify medical provider with any changes in condition or concerns. Quality Stroke Does the patient have a stroke diagnosis?: No VTE Prior VTE?: No VTE Risk Level:: Medical - low VTE Device Contraindication: Treatment Not Indicated VTE Drug Contraindication: N/A - Med Ordered
[2025-03-06 16:24] LABS: Glucose, Whole Blood 135 mg/dL (60-115)
[2025-03-06] MEDS: Morphine Sulfate Oral Sol 10 MG/5 ML SOLUTION 2.5 MG PO (16:55)
[2025-03-07 08:01] LABS: INTERNATIONAL NORM RATIO 3.4 (0.9-1.1); Prothrombin Time 40.4 SEC (11.2-13.5)
[2025-03-07] MEDS: Morphine Sulfate Oral Sol 10 MG/5 ML SOLUTION 2.5 MG PO ×2 (08:25→15:19)
--- NOTE | 2025-03-07 09:41 | P.PNPSI_ITS ---
Subjective Subjective Date of Service: 03/07/25 Reason For Visit: dementia with disturbed behaviors Subjective Notes: Conditional Voluntary Healthcare Proxy: Yes Interim History: Pt slept through the night. in bed, grabbing blanket. not eating nor drinking. 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 will d/c warfarin, not eating seems with severe vit k deficiency at this point. Review of Systems Review of Systems Unable due to mentation Yes Unobtainable due to mental status Mental Status Exam Mental Status Exam Narrative: Appearance: wearing hospital gown, fair hygiene, in NAD Behavior: pleasant, awake Psychomotor: no agitation or retardation noted Speech: mumbles at times, regular rate/rhythm/volume, spontaneous TP: aphasia TC: resting Mood: good Affect: congruent SI: none HI: none VH/AH: he does self dialogue Delusions: no overt delusional content but confabulation Insight/judgment: impaired x 2. Memory/cog: alert, not oriented to place, month, year nor situation. severe impairements in memory/cog. Diagnostics Vital Signs (24Hr): BMI result Body Mass Index 28.7 Labs 02/27/25 08:07 03/06/25 09:59 Labs: Laboratory Results - last 48 hr 03/05/25 03/06/25 03/06/25 20:19 06:41 07:16 Hold Purple Top PT 30.5 H INR 2.6 H Sodium Potassium Chloride Carbon Dioxide Anion Gap BUN Creatinine Estim Creat Clear Calc Estimated GFR POC Glucose 163 H 172 H Random Glucose Calcium Total Bilirubin AST ALT Alkaline Phosphatase Total Protein Albumin 03/06/25 03/06/25 03/06/25 09:59 11:22 16:18 Hold Purple Top SEE NOTE PT INR Sodium 150 H Potassium 4.0 Chloride 117 H Carbon Dioxide 23 Anion Gap 14 BUN 59 H Creatinine 1.67 H Estim Creat Clear Calc 43.9 Estimated GFR 40 POC Glucose 142 H 135 H Random Glucose 162 H Calcium 10.0 Total Bilirubin 0.7 AST 28 ALT 18 Alkaline Phosphatase 128 H Total Protein 6.8 Albumin 3.8 03/07/25 07:26 Hold Purple Top PT 40.4 H D INR 3.4 H Sodium Potassium Chloride Carbon Dioxide Anion Gap BUN Creatinine Estim Creat Clear Calc Estimated GFR POC Glucose Random Glucose Calcium Total Bilirubin AST ALT Alkaline Phosphatase Total Protein Albumin Medications Medications Current Medications Acetaminophen (Acetaminophen 325 Mg Tablet) 650 mg PO Q6H PRN PRN Reason: Headache/Pain, Scale 1-10 Al Hydroxide/Mg Hydroxide (Magnesium Hydrox/Alum Hydrox 30 Ml Oral.Susp) 30 ml PO Q6H PRN PRN Reason: Heartburn/Nausea Fluticasone/Vilanterol (Fluticasone/Vilanterol 100/25 Blst.W.Dev) 1 puff INHALE RDAILY PENDING SALE TO [facility] Last Admin: 03/07/25 09:07 Dose: Not Given Magnesium Hydroxide (Milk Of Magnesia 30 Ml Oral.Susp) 30 ml PO DAILY PRN PRN Reason: Constipation Melatonin (Melatonin 3 Mg Tablet) 6 mg PO BEDTIME [facility] Last Admin: 03/06/25 22:21 Dose: Not Given Mirtazapine (Mirtazapine 15 Mg Tablet) 15 mg PO BEDTIME [facility] TO [facility] Last Admin: 03/06/25 22:21 Dose: Not Given Morphine Sulfate (Morphine Sulfate Oral Ibis 10 Mg/5 Ml Solution) 2.5 mg PO Q4H PRN PRN Reason: Shortness of breath/pain Last Admin: 03/07/25 08:25 Dose: 2.5 mg Nicotine Polacrilex (Nicotine Polacrilex 2 Mg Gum) 2 mg BUCCAL Q2H PRN PRN Reason: Nicotine Cravings Olanzapine (Olanzapine Odt 10 Mg Tab.Rapdis) 10 mg TRANSLINGU BID PRN PRN Reason: severe agitation/psychosis Last Admin: 03/02/25 12:36 Dose: 10 mg Quetiapine Fumarate (Quetiapine Fumarate 25 Mg Tablet) 25 mg PO BID PRN PRN Reason: agitation Last Admin: 02/24/25 01:45 Dose: 25 mg Quetiapine Fumarate (Quetiapine Fumarate 50 Mg Tablet) 50 mg PO TID [facility] Last Admin: 03/06/25 22:21 Dose: Not Given Sertraline HCl (Sertraline Hcl 100 Mg Tablet) 100 mg PO DAILY [facility] Last Admin: 03/06/25 08:53 Dose: 100 mg Trazodone HCl (Trazodone Hcl 50 Mg Tablet) 50 mg PO BEDTIME MRX1 PRN PRN Reason: Insomnia Last Admin: 02/25/25 22:07 Dose: 50 mg Warfarin Sodium (Warfarin Sodium 1 Mg Tablet) 1 mg PO DAILY@1800 PEND[facility] TO [facility] Last Admin: 03/06/25 17:44 Dose: 1 mg Allergies Allergies Allergy/AdvReac Type Severity Reaction Status Date / Time metformin AdvReac Intermediate Stomach Verified 02/06/25 09:52 Upset Assessment & Plan Assessment & Plan (1) Dementia with Lewy bodies: Qualifiers: Dementia severity: severe Dementia behavioral or psychological symptom: without behavioral, psychotic, or mood disturbance or anxiety Qualified Code(s): G31.83 - Neurocognitive disorder with Lewy bodies; F02.C0 - Dementia in other diseases classified elsewhere, severe, without behavioral disturbance, psychotic disturbance, mood disturbance, and anxiety Status: Acute Code(s): G31.83 - Neurocognitive disorder with Lewy bodies; F02.80 - Dementia in other diseases classified elsewhere, unspecified severity, without behavioral disturbance, psychotic disturbance, mood disturbance, and anxiety (2) Acute kidney injury: Status: Acute Code(s): N17.9 - Acute kidney failure, unspecified (3) Failure to thrive in adult: Status: Acute Code(s): R62.7 - Adult failure to thrive (4) Current use of anticoagulant therapy: Status: Acute Code(s): Z79.01 - exterminator (current) use of anticoagulants (5) Aortic valve replaced: Status: Acute Code(s): Z95.2 - Presence of prosthetic heart valve (6) Diabetes type 2: Qualifiers: Diabetes mellitus longterm insulin use: without exterminator use Diabetes mellitus complication status: with other specified complication Qualified Code(s): E11.69 - Type 2 diabetes mellitus with other specified complication Status: Acute Code(s): E11.9 - Type 2 diabetes mellitus without complications Plan Plan Mr. Vasquez is a 74 year-old male with a hx of LBD who has been presenting with visual hallucinations for over one year. He has also been presenting more recently with increase agitation and combative behaviors. He recently had medication changes done by his neurologist including adding risperidone. Unclear if risperidone increase behaviors as it appears from collateral information from his that combative behaviors have been progressively increasing. As to the visual hallucinations, these are more chronic and unclear if we will be able to eliminate them. Agree with keeping galantamine as in context of LBD may help with VH, more than higher potency antipsychotics. Discussed with goals of care- She wants code to be DNR/DNI. We discussed increasing seroquel to 50mg po TID, and will also increase sertraline to 100mg po daily as serotonin in some cases of LBD actually may reduce VH. 11/7 continue sertraline 100mg po daily. continue Seroquel 50mg po TID along with prn medications 02/23: maintain current regimen. Coumadin being held as INR 6.1 02/24: Will order PT eval to minimize further physical decompensation (was ambulating independently at home pre admission as per nursing). 02/25 INR 7.6- hospitalist informed, warfarin continues to be held. creatinine clearance decreased from 76 on 02/16 to 46 on 02/25. mostly in bed, decreased oral intake. continues to present with combative behaviors when direct care provided. aphasia, unable to obtain much information from pt. 02/26 continue tx. continue tx. monitor INR, it is possible sertraline having some effect. hospitalist monitoring. His BP is low, oral intake has decreased. encouraged hydration. 02/27 INR 9 elevated despite holding dose of warfarin. hospitalist following, given Vit k. custom decorating consultant coordinating care with hospitalist, additional blood work added. He allowed insertion of IV without combative behaviors and allowed direct care also without aggression. He did later pulled IV. 02/28 continue tx. continue conversation in terms of goal of care, continues to present with poor oral intake. start remeron 15mg po qhs. 03/01 continue tx. 03/04 continue tx. 03/05 continue tx. very poor intake. reaching point of terminal dementia. consider changing goals of care. 03/06 discussed with family terminal dementia, minimal oral intake affecting renal function and electrolytes. decision to change code to LICENSE ISSUER was made by his . VS, POC, d/caty 03/07 not eating, in bed. oriented only to self. will d/c warfarin- at this point severe deficiency vit k due to starvation and again INR trending up. Reason for continued inpatient stay Substantial Risk for: inability to function Time Spent With Patient Time: Total time managing care of this patient today ____ minutes.
[2025-03-07 20:00] VITALS: PULSE 62; RESP 16
[2025-03-08 07:56] LABS: INTERNATIONAL NORM RATIO 4.0 (0.9-1.1); Prothrombin Time 47.6 SEC (11.2-13.5)
[2025-03-08 08:00] VITALS: BP 80/50; PULSE 60; RESP 116; TEMP 37; O2SAT 91
--- NOTE | 2025-03-08 09:35 | P.PNPSI_ITS ---
Subjective Subjective Date of Service: 03/08/25 Reason For Visit: dementia with disturbed behaviors Interim History: Pt slept through the night. in bed, grabbing blanket. not eating nor drinking. CONSULTING PRACTICE DIRECTOR. will d/c warfarin, not eating seems with severe vit k deficiency at this point. Review of Systems Review of Systems Unable due to mentation Yes Unobtainable due to mental status Mental Status Exam Mental Status Exam Narrative: Appearance: wearing hospital gown, fair hygiene, in NAD Behavior: pleasant, awake Psychomotor: no agitation or retardation noted Speech: mumbles at times, regular rate/rhythm/volume, spontaneous TP: aphasia TC: resting Mood: good Affect: congruent SI: none HI: none VH/AH: he does self dialogue Delusions: no overt delusional content but confabulation Insight/judgment: impaired x 2. Memory/cog: alert, not oriented to place, month, year nor situation. severe impairements in memory/cog. Diagnostics Vital Signs (24Hr): Vital Signs - 24 hr 03/07/25 20:00 03/08/25 08:00 Temperature 98.6 F Pulse Rate 62 60 Respiratory Rate 16 116 H Blood Pressure 80/50 L Pulse Oximetry 91 L Oxygen Delivery Method Room Air BMI result Body Mass Index 28.7 Labs 02/27/25 08:07 03/06/25 09:59 Labs: Laboratory Results - last 48 hr 03/06/25 03/06/25 03/06/25 09:59 11:22 16:18 Hold Purple Top SEE NOTE PT INR Sodium 150 H Potassium 4.0 Chloride 117 H Carbon Dioxide 23 Anion Gap 14 BUN 59 H Creatinine 1.67 H Estim Creat Clear Calc 43.9 Estimated GFR 40 POC Glucose 142 H 135 H Random Glucose 162 H Calcium 10.0 Total Bilirubin 0.7 AST 28 ALT 18 Alkaline Phosphatase 128 H Total Protein 6.8 Albumin 3.8 03/07/25 03/08/25 07:26 07:24 Hold Purple Top PT 40.4 H D 47.6 H INR 3.4 H 4.0 H Sodium Potassium Chloride Carbon Dioxide Anion Gap BUN Creatinine Estim Creat Clear Calc Estimated GFR POC Glucose Random Glucose Calcium Total Bilirubin AST ALT Alkaline Phosphatase Total Protein Albumin Medications Medications Current Medications Acetaminophen (Acetaminophen 325 Mg Tablet) 650 mg PO Q6H PRN PRN Reason: Headache/Pain, Scale 1-10 Al Hydroxide/Mg Hydroxide (Magnesium Hydrox/Alum Hydrox 30 Ml Oral.Susp) 30 ml PO Q6H PRN PRN Reason: Heartburn/Nausea Lorazepam (Lorazepam 0.5 Mg Tablet) 0.5 mg PO TID [facility] Last Admin: 03/08/25 08:46 Dose: 0.5 mg Lorazepam (Lorazepam 1 Mg Tablet) 1 mg PO Q8H PRN PRN Reason: severe agitation/restlessness Last Admin: 03/07/25 13:28 Dose: 1 mg Magnesium Hydroxide (Milk Of Magnesia 30 Ml Oral.Susp) 30 ml PO DAILY PRN PRN Reason: Constipation Melatonin (Melatonin 3 Mg Tablet) 6 mg PO BEDTIME [facility] Last Admin: 03/07/25 20:40 Dose: Not Given Morphine Sulfate (Morphine Sulfate Oral Ibis 10 Mg/5 Ml Solution) 2.5 mg PO Q4H PRN PRN Reason: Shortness of breath/pain Last Admin: 03/07/25 15:19 Dose: 2.5 mg Nicotine Polacrilex (Nicotine Polacrilex 2 Mg Gum) 2 mg BUCCAL Q2H PRN PRN Reason: Nicotine Cravings Olanzapine (Olanzapine Odt 10 Mg Tab.Rapdis) 10 mg TRANSLINGU BID PRN PRN Reason: severe agitation/psychosis Last Admin: 03/02/25 12:36 Dose: 10 mg Quetiapine Fumarate (Quetiapine Fumarate 25 Mg Tablet) 25 mg PO BID PRN PRN Reason: agitation Last Admin: 02/24/25 01:45 Dose: 25 mg Quetiapine Fumarate (Quetiapine Fumarate 50 Mg Tablet) 50 mg PO TID [facility] Last Admin: 03/08/25 08:46 Dose: 50 mg Trazodone HCl (Trazodone Hcl 50 Mg Tablet) 50 mg PO BEDTIME MRX1 PRN PRN Reason: Insomnia Last Admin: 02/25/25 22:07 Dose: 50 mg Allergies Allergies Allergy/AdvReac Type Severity Reaction Status Date / Time metformin AdvReac Intermediate Stomach Verified 02/06/25 09:52 Upset Assessment & Plan Assessment & Plan (1) Dementia with Lewy bodies: Qualifiers: Dementia behavioral or psychological symptom: without behavioral, psychotic, or mood disturbance or anxiety Dementia severity: severe Qualified Code(s): G31.83 - Neurocognitive disorder with Lewy bodies; F02.C0 - Dementia in other diseases classified elsewhere, severe, without behavioral disturbance, psychotic disturbance, mood disturbance, and anxiety Status: Acute Code(s): G31.83 - Neurocognitive disorder with Lewy bodies; F02.80 - Dementia in other diseases classified elsewhere, unspecified severity, without behavioral disturbance, psychotic disturbance, mood disturbance, and anxiety (2) Acute kidney injury: Status: Acute Code(s): N17.9 - Acute kidney failure, unspecified (3) Failure to thrive in adult: Status: Acute Code(s): R62.7 - Adult failure to thrive (4) Current use of anticoagulant therapy: Status: Acute Code(s): Z79.01 - alf (current) use of anticoagulants (5) Aortic valve replaced: Status: Acute Code(s): Z95.2 - Presence of prosthetic heart valve (6) Diabetes type 2: Qualifiers: Diabetes mellitus complication status: with other specified complication Diabetes mellitus moth exterminator insulin use: without prison use Qualified Code(s): E11.69 - Type 2 diabetes mellitus with other specified complication Status: Acute Code(s): E11.9 - Type 2 diabetes mellitus without complications Plan Plan Mr. Vasquez is a 74 year-old male with a hx of LBD who has been presenting with visual hallucinations for over one year. He has also been presenting more recently with increase agitation and combative behaviors. He recently had medication changes done by his neurologist including adding risperidone. Unclear if risperidone increase behaviors as it appears from collateral information from his that combative behaviors have been progressively increasing. As to the visual hallucinations, these are more chronic and unclear if we will be able to eliminate them. Agree with keeping galantamine as in context of LBD may help with VH, more than higher potency antipsychotics. Discussed with goals of care- She wants code to be DNR/DNI. We discussed increasing seroquel to 50mg po TID, and will also increase sertraline to 100mg po daily as serotonin in some cases of LBD actually may reduce VH. 02/22 continue sertraline 100mg po daily. continue Seroquel 50mg po TID along with prn medications 02/23: maintain current regimen. Coumadin being held as INR 6.1 02/24: Will order PT eval to minimize further physical decompensation (was ambulating independently at home pre admission as per nursing). 02/25 INR 7.6- hospitalist informed, warfarin continues to be held. creatinine clearance decreased from 76 on 02/16 to 46 on 02/25. mostly in bed, decreased oral intake. continues to present with combative behaviors when direct care provided. aphasia, unable to obtain much information from pt. 02/26 continue tx. continue tx. monitor INR, it is possible sertraline having some effect. hospitalist monitoring. His BP is low, oral intake has decreased. encouraged hydration. 02/27 INR 9 elevated despite holding dose of warfarin. hospitalist following, given Vit k. access manager coordinating care with hospitalist, additional blood work added. He allowed insertion of IV without combative behaviors and allowed direct care also without aggression. He did later pulled IV. 02/28 continue tx. continue conversation in terms of goal of care, continues to present with poor oral intake. start remeron 15mg po qhs. 03/01 continue tx. 03/04 continue tx. 03/05 continue tx. very poor intake. reaching point of terminal dementia. consider changing goals of care. 03/06 discussed with family terminal dementia, minimal oral intake affecting renal function and electrolytes. decision to change code to CONSULTING PRACTICE DIRECTOR was made by his . VS, POC, d/caty 03/07 not eating, in bed. oriented only to self. will d/c warfarin- at this point severe deficiency vit k due to starvation and again INR trending up. 03/08 very limited oral intake, no urine output at night. hypotensive due to dehydration, no labs completed at this time as he is CONSULTING PRACTICE DIRECTOR but spoke with that he may pass in next few days. continue comfort measures. DO NOT RESTART WARFARIN. Reason for continued inpatient stay Substantial Risk for: inability to function Time Spent With Patient Time: Total time managing care of this patient today ____ minutes.
--- NOTE | 2025-03-08 13:06 | MHC.CLN ---
F/U PATIENT STATUS CHANGED TO COMFORT MEASURES ONLY. RD AVAILABLE NEEDED.
[2025-03-08 20:00] VITALS: BP 94/51; PULSE 62; RESP 16; TEMP 36.9; O2SAT 92
[2025-03-08] MEDS: Morphine Sulfate Oral Sol 10 MG/5 ML SOLUTION 2.5 MG PO (23:00)
--- NOTE | 2025-03-09 11:33 | P.PNPSI_ITS ---
Subjective Subjective Date of Service: 03/09/25 Reason For Visit: dementia with disturbed behaviors Interim History: Patient was seen and discussed in rounds today. Records and plans reviewed. He continues to be bed-bound and on comfort care orders. Vital signs to be discontinued. Nonverbal. No changes were made today Review of Systems Review of Systems Yes Unobtainable due to mental status Mental Status Exam Mental Status Exam Narrative: Patient is in bed, nonverbal and noncommunicative but alert and grabbing at bed sheets. Diagnostics Vital Signs (24Hr): Vital Signs - 24 hr 03/08/25 20:00 Temperature 98.4 F Pulse Rate 62 Respiratory Rate 16 Blood Pressure 94/51 L Pulse Oximetry 92 Oxygen Delivery Method Room Air BMI result Body Mass Index 28.7 Labs 02/27/25 08:07 03/06/25 09:59 Labs: Laboratory Results - last 48 hr 03/08/25 07:24 PT 47.6 H INR 4.0 H Medications Medications Current Medications Acetaminophen (Acetaminophen 325 Mg Tablet) 650 mg PO Q6H PRN PRN Reason: Headache/Pain, Scale 1-10 Al Hydroxide/Mg Hydroxide (Magnesium Hydrox/Alum Hydrox 30 Ml Oral.Susp) 30 ml PO Q6H PRN PRN Reason: Heartburn/Nausea Lorazepam (Lorazepam 0.5 Mg Tablet) 0.5 mg PO TID [facility] Last Admin: 03/09/25 09:16 Dose: 0.5 mg Lorazepam (Lorazepam 1 Mg Tablet) 1 mg PO Q8H PRN PRN Reason: severe agitation/restlessness Last Admin: 03/07/25 13:28 Dose: 1 mg Magnesium Hydroxide (Milk Of Magnesia 30 Ml Oral.Susp) 30 ml PO DAILY PRN PRN Reason: Constipation Melatonin (Melatonin 3 Mg Tablet) 6 mg PO BEDTIME [facility] Last Admin: 03/08/25 20:41 Dose: Not Given Morphine Sulfate (Morphine Sulfate Oral Ibis 10 Mg/5 Ml Solution) 2.5 mg PO Q4H PRN PRN Reason: Shortness of breath/pain Last Admin: 03/08/25 23:00 Dose: 2.5 mg Nicotine Polacrilex (Nicotine Polacrilex 2 Mg Gum) 2 mg BUCCAL Q2H PRN PRN Reason: Nicotine Cravings Olanzapine (Olanzapine Odt 10 Mg Tab.Rapdis) 10 mg TRANSLINGU BID PRN PRN Reason: severe agitation/psychosis Last Admin: 03/02/25 12:36 Dose: 10 mg Quetiapine Fumarate (Quetiapine Fumarate 25 Mg Tablet) 25 mg PO BID PRN PRN Reason: agitation Last Admin: 02/24/25 01:45 Dose: 25 mg Quetiapine Fumarate (Quetiapine Fumarate 50 Mg Tablet) 50 mg PO TID [facility] Last Admin: 03/09/25 09:16 Dose: 50 mg Trazodone HCl (Trazodone Hcl 50 Mg Tablet) 50 mg PO BEDTIME MRX1 PRN PRN Reason: Insomnia Last Admin: 02/25/25 22:07 Dose: 50 mg Allergies Allergies Allergy/AdvReac Type Severity Reaction Status Date / Time metformin AdvReac Intermediate Stomach Verified 02/06/25 09:52 Upset Assessment & Plan Assessment & Plan (1) Dementia with Lewy bodies: Qualifiers: Dementia severity: severe Dementia behavioral or psychological symptom: without behavioral, psychotic, or mood disturbance or anxiety Qualified Code(s): G31.83 - Neurocognitive disorder with Lewy bodies; F02.C0 - Dementia in other diseases classified elsewhere, severe, without behavioral disturbance, psychotic disturbance, mood disturbance, and anxiety Status: Acute Code(s): G31.83 - Neurocognitive disorder with Lewy bodies; F02.80 - Dementia in other diseases classified elsewhere, unspecified severity, without behavioral disturbance, psychotic disturbance, mood disturbance, and anxiety (2) Acute kidney injury: Status: Acute Code(s): N17.9 - Acute kidney failure, unspecified (3) Failure to thrive in adult: Status: Acute Code(s): R62.7 - Adult failure to thrive (4) Current use of anticoagulant therapy: Status: Acute Code(s): Z79.01 - [facility] (current) use of anticoagulants (5) Aortic valve replaced: Status: Acute Code(s): Z95.2 - Presence of prosthetic heart valve (6) Diabetes type 2: Qualifiers: Diabetes mellitus 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 Vasquez is a 74 year-old male with a hx of LBD who has been presenting with visual hallucinations for over one year. He has also been presenting more recently with increase agitation and combative behaviors. He recently had medication changes done by his neurologist including adding risperidone. Unclear if risperidone increase behaviors as it appears from collateral information from his that combative behaviors have been progressively increasing. As to the visual hallucinations, these are more chronic and unclear if we will be able to eliminate them. Agree with keeping galantamine as in context of LBD may help with VH, more than higher potency antipsychotics. Discussed with goals of care- She wants code to be DNR/DNI. We discussed increasing seroquel to 50mg po TID, and will also increase sertraline to 100mg po daily as serotonin in some cases of LBD actually may reduce VH. 02/22 continue sertraline 100mg po daily. continue Seroquel 50mg po TID along with prn medications 02/23: maintain current regimen. Coumadin being held as INR 6.1 02/24: Will order PT eval to minimize further physical decompensation (was ambulating independently at home pre admission as per nursing). 02/25 INR 7.6- hospitalist informed, warfarin continues to be held. creatinine clearance decreased from 76 on 02/16 to 46 on 02/25. mostly in bed, decreased oral intake. continues to present with combative behaviors when direct care provided. aphasia, unable to obtain much information from pt. 02/26 continue tx. continue tx. monitor INR, it is possible sertraline having some effect. hospitalist monitoring. His BP is low, oral intake has decreased. encouraged hydration. 02/27 INR 9 elevated despite holding dose of warfarin. hospitalist following, given Vit k. financial systems analyst coordinating care with hospitalist, additional blood work added. He allowed insertion of IV without combative behaviors and allowed direct care also without aggression. He did later pulled IV. 02/28 continue tx. continue conversation in terms of goal of care, continues to present with poor oral intake. start remeron 15mg po qhs. 03/01 continue tx. 03/04 continue tx. 03/05 continue tx. very poor intake. reaching point of terminal dementia. consider changing goals of care. 03/06 discussed with family terminal dementia, minimal oral intake affecting renal function and electrolytes. decision to change code to MANAGER SHAREPOINT was made by his . VS, POC, d/caty 03/07 not eating, in bed. oriented only to self. will d/c warfarin- at this point severe deficiency vit k due to starvation and again INR trending up. 03/08 very limited oral intake, no urine output at night. hypotensive due to dehydration, no labs completed at this time as he is MANAGER SHAREPOINT but spoke with that he may pass in next few days. continue comfort measures. DO NOT RESTART WARFARIN. 03/09:Continue current regimen and plans Reason for continued inpatient stay Substantial Risk for: inability to function Time Spent With Patient Time: Total time managing care of this patient today ____ minutes.
--- NOTE | 2025-03-09 11:46 | PC.NURSE ---
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
[2025-03-10] MEDS: Morphine Sulfate Oral Sol 10 MG/5 ML SOLUTION 2.5 MG PO (10:38)
--- NOTE | 2025-03-10 12:28 | P.PNPSI_ITS ---
Subjective Subjective Date of Service: 03/10/25 Reason For Visit: dementia with disturbed behaviors Subjective Notes: Conditional Voluntary Interim History: Patient was seen and discussed in rounds today. Records and plans reviewed. 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 He is still in pain, grimacing. I increased his morphine order to 5 mg. His was present today and she is aware of the DNR status and she had actually signed something in the emergency room to that effect. No changes were made today other than the above Review of Systems Review of Systems Yes Unobtainable due to mental status Mental Status Exam Mental Status Exam Narrative: Could not assess today due to physical and mental status Diagnostics Vital Signs (24Hr): BMI result Body Mass Index 28.7 Labs 02/27/25 08:07 03/06/25 09:59 Medications Medications Current Medications Acetaminophen (Acetaminophen 325 Mg Tablet) 650 mg PO Q6H PRN PRN Reason: Headache/Pain, Scale 1-10 Al Hydroxide/Mg Hydroxide (Magnesium Hydrox/Alum Hydrox 30 Ml Oral.Susp) 30 ml PO Q6H PRN PRN Reason: Heartburn/Nausea Lorazepam (Lorazepam 0.5 Mg Tablet) 0.5 mg PO TID [facility] Last Admin: 03/10/25 10:23 Dose: 0.5 mg Lorazepam (Lorazepam 1 Mg Tablet) 1 mg PO Q8H PRN PRN Reason: severe agitation/restlessness Last Admin: 03/07/25 13:28 Dose: 1 mg Magnesium Hydroxide (Milk Of Magnesia 30 Ml Oral.Susp) 30 ml PO DAILY PRN PRN Reason: Constipation Melatonin (Melatonin 3 Mg Tablet) 6 mg PO BEDTIME [facility] Last Admin: 03/09/25 21:07 Dose: Not Given Morphine Sulfate (Morphine Sulfate Oral Ibis 10 Mg/5 Ml Solution) 5 mg PO Q4H PRN PRN Reason: Shortness of breath/pain Nicotine Polacrilex (Nicotine Polacrilex 2 Mg Gum) 2 mg BUCCAL Q2H PRN PRN Reason: Nicotine Cravings Olanzapine (Olanzapine Odt 10 Mg Tab.Rapdis) 10 mg TRANSLINGU BID PRN PRN Reason: severe agitation/psychosis Last Admin: 03/02/25 12:36 Dose: 10 mg Quetiapine Fumarate (Quetiapine Fumarate 25 Mg Tablet) 25 mg PO BID PRN PRN Reason: agitation Last Admin: 02/24/25 01:45 Dose: 25 mg Quetiapine Fumarate (Quetiapine Fumarate 50 Mg Tablet) 50 mg PO TID [facility] Last Admin: 03/10/25 10:23 Dose: 50 mg Trazodone HCl (Trazodone Hcl 50 Mg Tablet) 50 mg PO BEDTIME MRX1 PRN PRN Reason: Insomnia Last Admin: 02/25/25 22:07 Dose: 50 mg Allergies Allergies Allergy/AdvReac Type Severity Reaction Status Date / Time metformin AdvReac Intermediate Stomach Verified 02/06/25 09:52 Upset Assessment & Plan Assessment & Plan (1) Dementia with Lewy bodies: Qualifiers: Dementia severity: severe Dementia behavioral or psychological symptom: without behavioral, psychotic, or mood disturbance or anxiety Qualified Code(s): G31.83 - Neurocognitive disorder with Lewy bodies; F02.C0 - Dementia in other diseases classified elsewhere, severe, without behavioral disturbance, psychotic disturbance, mood disturbance, and anxiety Status: Acute Code(s): G31.83 - Neurocognitive disorder with Lewy bodies; F02.80 - Dementia in other diseases classified elsewhere, unspecified severity, without behavioral disturbance, psychotic disturbance, mood disturbance, and anxiety (2) Acute kidney injury: Status: Acute Code(s): N17.9 - Acute kidney failure, unspecified (3) Failure to thrive in adult: Status: Acute Code(s): R62.7 - Adult failure to thrive (4) Current use of anticoagulant therapy: Status: Acute Code(s): Z79.01 - MCFP (current) use of anticoagulants (5) Aortic valve replaced: Status: Acute Code(s): Z95.2 - Presence of prosthetic heart valve (6) Diabetes type 2: Qualifiers: 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 Vasquez is a 74 year-old male with a hx of LBD who has been presenting with visual hallucinations for over one year. He has also been presenting more recently with increase agitation and combative behaviors. He recently had medication changes done by his neurologist including adding risperidone. Unclear if risperidone increase behaviors as it appears from collateral information from his that combative behaviors have been progressively increasing. As to the visual hallucinations, these are more chronic and unclear if we will be able to eliminate them. Agree with keeping galantamine as in context of LBD may help with VH, more than higher potency antipsychotics. Discussed with goals of care- She wants code to be DNR/DNI. We discussed increasing seroquel to 50mg po TID, and will also increase sertraline to 100mg po daily as serotonin in some cases of LBD actually may reduce VH. 02/22 continue sertraline 100mg po daily. continue Seroquel 50mg po TID along with prn medications 02/23: maintain current regimen. Coumadin being held as INR 6.1 02/24: Will order PT eval to minimize further physical decompensation (was ambulating independently at home pre admission as per nursing). 02/25 INR 7.6- hospitalist informed, warfarin continues to be held. creatinine clearance decreased from 76 on 02/16 to 46 on 02/25. mostly in bed, decreased oral intake. continues to present with combative behaviors when direct care provided. aphasia, unable to obtain much information from pt. 02/26 continue tx. continue tx. monitor INR, it is possible sertraline having some effect. hospitalist monitoring. His BP is low, oral intake has decreased. encouraged hydration. 02/27 INR 9 elevated despite holding dose of warfarin. hospitalist following, given Vit k. enterprise integration developer coordinating care with hospitalist, additional blood work added. He allowed insertion of IV without combative behaviors and allowed direct care also without aggression. He did later pulled IV. 02/28 continue tx. continue conversation in terms of goal of care, continues to present with poor oral intake. start remeron 15mg po qhs. 03/01 continue tx. 03/04 continue tx. 03/05 continue tx. very poor intake. reaching point of terminal dementia. consider changing goals of care. 03/06 discussed with family terminal dementia, minimal oral intake affecting renal function and electrolytes. decision to change code to DESK MANAGER was made by his . VS, POC, d/caty 03/07 not eating, in bed. oriented only to self. will d/c warfarin- at this point severe deficiency vit k due to starvation and again INR trending up. 03/08 very limited oral intake, no urine output at night. hypotensive due to dehydration, no labs completed at this time as he is DESK MANAGER but spoke with that he may pass in next few days. continue comfort measures. DO NOT RESTART WARFARIN. 03/09:Continue current regimen and plans 03/10:Continue current regimen and plans Reason for continued inpatient stay Substantial Risk for: inability to function Time Spent With Patient Time: Total time managing care of this patient today ____ minutes.
[2025-03-10] MEDS: Morphine Sulfate Oral Sol 10 MG/5 ML SOLUTION 5 MG PO (14:52)
--- NOTE | 2025-03-11 02:23 | PM.EVENT ---
Event Note Date of Service: 03/11/25 Event Note: Notified by Dr. Mercado that nursing notified that pt Manuel Vasquez in [facility]1 had passed and pronouncement needed. 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 Arrived shortly after notifation and confirmed pt's passing at 205 AM after examination revealed absence of spontaenous breath sounds or respirations with abscence of carotid pulse. Pupils fixed with no light reflex. Nursing has notified family and they are on the way to the hospital. Nursing notified psychiatry and they will provide discharge summary. Nursing will complete information on home once family arrives. This remote mortgage underwriter notified nursing that this provider available if there are any questions or concerns. Time Spent With Patient Time: Total time managing care of this patient today ____ minutes.
--- NOTE | 2025-03-11 03:19 | PM.PSYDC ---
DS: Providers Provider Date of Service: 03/11/25 Date of admission: 02/20/25 18:12 Date of discharge: 03/11/25 Primary care physician: Unknown Physician Consults: 02/20/25 23:15 Consult to Hospitalist Routine Comment: Consulting Provider: [facility] Reason For Exam: Monitor PT/INR. Patient is on Coumadin. 02/25/25 14:15 Consult to Wound Care Routine Consulting Provider: [facility] Wound Care Management Reason for consultation: Multiple wounds bilateral arms 02/27/25 09:10 Consult to Nephrology Routine Consulting Provider: [facility] Reason for consultation: Worsening renal function. DS: Diagnosis Discharge Diagnosis (1) Dementia with Lewy bodies: Status: Acute (2) Acute kidney injury: Status: Acute (3) Failure to thrive in adult: Status: Acute (4) Current use of anticoagulant therapy: Status: Acute (5) Aortic valve replaced: Status: Acute (6) Diabetes type 2: Status: Acute Data Data Completed and Pending Completed studies during hospitalization [Text1]: 03/04/25 03/04/25 03/04/25 06:41 07:19 15:41 Hold Purple Top PT 24.9 H INR 2.1 H Sodium Potassium Chloride Carbon Dioxide Anion Gap BUN Creatinine Estim Creat Clear Calc Estimated GFR POC Glucose 134 H 152 H Random Glucose Calcium Total Bilirubin AST ALT Alkaline Phosphatase Total Protein Albumin 03/04/25 03/05/25 03/05/25 22:08 06:19 07:43 Hold Purple Top PT 28.3 H INR 2.4 H Sodium Potassium Chloride Carbon Dioxide Anion Gap BUN Creatinine Estim Creat Clear Calc Estimated GFR POC Glucose 163 H 150 H Random Glucose Calcium Total Bilirubin AST ALT Alkaline Phosphatase Total Protein Albumin 03/05/25 03/06/25 03/06/25 20:19 06:41 07:16 Hold Purple Top PT 30.5 H INR 2.6 H Sodium Potassium Chloride Carbon Dioxide Anion Gap BUN Creatinine Estim Creat Clear Calc Estimated GFR POC Glucose 163 H 172 H Random Glucose Calcium Total Bilirubin AST ALT Alkaline Phosphatase Total Protein Albumin 03/06/25 03/06/25 03/06/25 09:59 11:22 16:18 Hold Purple Top SEE NOTE PT INR Sodium 150 H Potassium 4.0 Chloride 117 H Carbon Dioxide 23 Anion Gap 14 BUN 59 H Creatinine 1.67 H Estim Creat Clear Calc 43.9 Estimated GFR 40 POC Glucose 142 H 135 H Random Glucose 162 H Calcium 10.0 Total Bilirubin 0.7 AST 28 ALT 18 Alkaline Phosphatase 128 H Total Protein 6.8 Albumin 3.8 03/07/25 03/08/25 07:26 07:24 Hold Purple Top PT 40.4 H D 47.6 H INR 3.4 H 4.0 H Sodium Potassium Chloride Carbon Dioxide Anion Gap BUN Creatinine Estim Creat Clear Calc Estimated GFR POC Glucose Random Glucose Calcium Total Bilirubin AST ALT Alkaline Phosphatase Total Protein Albumin DS: Summary Hospital Course Hospital Course: Mr. Vasquez is a 74 year-old male with a hx of LBD who has been presenting with visual hallucinations for over one year. He has also been presenting more recently with increase agitation and combative behaviors. He recently had medication changes done by his neurologist including adding risperidone. Unclear if risperidone increase behaviors as it appears from collateral information from his that combative behaviors have been progressively increasing. As to the visual hallucinations, these are more chronic and unclear if we will be able to eliminate them. Agree with keeping galantamine as in context of LBD may help with VH, more than higher potency antipsychotics. Discussed with goals of care- She wants code to be DNR/DNI. We discussed increasing seroquel to 50mg po TID, and will also increase sertraline to 100mg po daily as serotonin in some cases of LBD actually may reduce VH. Patient on 03/11/25 Time Spent with Patient Time attestation: Total time managing care of this patient today ____ minutes. Discharge Plan Discharge Date/Time: 03/11/25 03:15 Patient Disposition: Discharge Diagnosis: Referrals: Physician,Unknown J [Primary Care Provider, Medical] - 1 Week Discharge Medications: Discontinued glipizide 10 mg tablet extended release 24hr 5 mg PO DAILY@0815 Qty: 90 3RF (DME) pen needle, diabetic 31 gauge x 5/16 needle See Rx Instructions subcut DAILY Qty: 200 3RF Rx Instructions: check glucose 4 times daily montelukast 10 mg tablet 10 mg PO BEDTIME Qty: 90 3RF metoprolol tartrate 25 mg tablet 25 mg PO BID Qty: 180 1RF acetaminophen 500 mg Tablet 1,000 mg PO DAILY PRN (Reason: Pain) warfarin 2.5 mg Tablet 2.5 mg PO MOWEFR rivastigmine tartrate 1.5 mg Capsule 1.5 mg PO BID 30 Days Qty: 60 0RF doxycycline monohydrate 100 mg Capsule 100 mg PO Q12H 3 Days Qty: 6 0RF enoxaparin 120 mg/0.8 mL Syringe 120 mg subcut Q12H 10 Days Qty: 16 0RF quetiapine 25 mg Tablet 12.5 mg PO BEDTIME 30 Days Qty: 15 0RF quetiapine 25 mg Tablet 25 mg PO BID PRN (Reason: agitation) 30 Days Qty: 30 0RF olanzapine 10 mg Recon Soln 5 mg IM ONCE PRN (Reason: agitation, combativeness) 10 Days Qty: 10 0RF melatonin 3 mg Tablet 6 mg PO BEDTIME PRN (Reason: Insomnia) 30 Days Qty: 30 0RF omeprazole 20 mg Capsule,Delayed Release(Dr/Ec) 20 mg PO DAILY@0630 30 Days Qty: 30 0RF insulin lispro [Admelog U-100 Insulin lispro] 100 unit/mL Solution See Protocol subcut QIDACHS 30 Days Qty: 30 0RF Protocol: Insulin Correction Scale Less than or equal to 110 ---- Give (units): 0 111 to 150 Give (units): 0 151 to 200 Give (units): 2 201 to 250 Give (units): 4 251 to 300 Give (units): 6 301 to 350 Give (units): 8 Greater than 350 Give (units): 10 Call MD if Blood Glucose > : 350 lisinopril 5 mg tablet 5 mg PO QAM warfarin 5 mg tablet 5 mg PO BJ Protocol: Dose Management Condition: Tuesday (Week One) Dose/Route: 5 mg Instruction: 1 x 5 mg tablet Condition: Tuesday Dose/Route: 2.5 mg Instruction: 0.5 x 5 mg tablets Condition: Tuesday Dose/Route: 5 mg Instruction: 1 x 5 mg tablet Condition: Tuesday Dose/Route: 2.5 mg Instruction: 0.5 x 5 mg tablets Condition: Dose/Route: 5 mg Instruction: 1 x 5 mg tablet Condition: Tuesday Dose/Route: 2.5 mg Instruction: 0.5 x 5 mg tablets Condition: Tuesday Dose/Route: 5 mg Instruction: 1 x 5 mg tablet Condition: Tuesday (Week Two) Dose/Route: 5 mg Instruction: 1 x 5 mg tablet Condition: Tuesday Dose/Route: 2.5 mg Instruction: 0.5 x 5 mg tablets Condition: Tuesday Dose/Route: 5 mg Instruction: 1 x 5 mg tablet Condition: Tuesday Dose/Route: 2.5 mg Instruction: 0.5 x 5 mg tablets Condition: Dose/Route: 5 mg Instruction: 1 x 5 mg tablet Condition: Tuesday Dose/Route: 2.5 mg Instruction: 0.5 x 5 mg tablets Condition: Tuesday Dose/Route: 5 mg Instruction: 1 x 5 mg tablet Protocol Text: Adjustment Start Date: 01/31/25 INR Value: 2.4 INR Date: 01/31/25 Additional Instructions: REVIEW FOOD LIST WEEKLY, AVOID GREENS TODAY AND TOMORROW, THEN RESUME USUAL DIET MUCH POSSIBLE fluticasone propion-salmeterol [Wixela Inhub] 250-50 mcg/dose blister with device 1 ea inhalation DAILY insulin glargine [Basaglar KwikPen U-100 Insulin] 100 unit/mL (3 mL) insulin pen 10 unit subcut DAILY PRN (Reason: Hyperglycemia) atorvastatin 20 mg tablet 20 mg PO DAILY@193 sertraline 50 mg tablet 50 mg PO DAILY Qty: 90 0RF Print Language: Frisian
== END 2025-03-11 02:05 | disposition expired | DRG 56 ==
PROVIDERS: Hospitalist; Nurse Practitioner Family; Social Worker; Admitting Provider Student in an Organized Health Care Education/Training Program; Visit Provider Nurse Practitioner Psychiatric/Mental Health
DX: G31.83 Neurocognitive disorder with Lewy bodies (principal); J96.01 Acute respiratory failure with hypoxia; F02.811 Dementia in other diseases classified elsewhere, unspecified severity, with agitation; J44.0 Chronic obstructive pulmonary disease with (acute) lower respiratory infection; N17.9 Acute kidney failure, unspecified; E87.0 Hyperosmolality and hypernatremia; Z87.891 Personal history of nicotine dependence; Z95.2 Presence of prosthetic heart valve; I87.8 Other specified disorders of veins; J20.9 Acute bronchitis, unspecified; E86.1 Hypovolemia; Z51.5 Encounter for palliative care; E78.5 Hyperlipidemia, unspecified; I10 Essential (primary) hypertension; R62.7 Adult failure to thrive; Z68.28 Body mass index [BMI] 28.0-28.9, adult; R79.1 Abnormal coagulation profile; E11.9 Type 2 diabetes mellitus without complications; Z95.0 Presence of cardiac pacemaker; Z79.01 Long term (current) use of anticoagulants; Z79.899 Other long term (current) drug therapy
CPT/HCPCS: 36415; 80048; 80053; 80061; 82248; 82607; 82746; 82947; 83036; 84439; 84443; 85025; 85379; 85384; 85610

== ENCOUNTER → 2025-02-20 18:12 | Outpatient (BNV) | payer MEDICARE, SELFPAY | PROVIDERS: Admitting Provider Student in an Organized Health Care Education/Training Program; Visit Provider Nurse Practitioner Family | DX: Z79.01 Long term (current) use of anticoagulants (principal); N17.9 Acute kidney failure, unspecified | CPT/HCPCS: 99221; 99231; 99232; 99499 ==

== ENCOUNTER → 2025-02-20 18:12 | Outpatient (BNV) | payer MEDICARE, SELFPAY | PROVIDERS: Admitting Provider Student in an Organized Health Care Education/Training Program; Visit Provider Internal Medicine Critical Care Medicine | DX: I10 Essential (primary) hypertension (principal); N17.9 Acute kidney failure, unspecified; E87.0 Hyperosmolality and hypernatremia | CPT/HCPCS: 99222; 99233 ==

== ENCOUNTER → 2025-02-20 18:12 | Outpatient (BNV) | payer MEDICARE, SELFPAY | PROVIDERS: Admitting Provider Student in an Organized Health Care Education/Training Program; Visit Provider Nurse Practitioner Psychiatric/Mental Health | DX: G31.83 Neurocognitive disorder with Lewy bodies (principal); F02.C0 Dementia in other diseases classified elsewhere, severe, without behavioral disturbance, psychotic disturbance, mood disturbance, and anxiety; Z95.2 Presence of prosthetic heart valve; Z79.01 Long term (current) use of anticoagulants; E11.69 Type 2 diabetes mellitus with other specified complication | CPT/HCPCS: 90792; 99232 ==